=== PATIENT | female | born 1955 | race Caucasian/White ===

== ENCOUNTER 2017-03-06 17:57 | Emergency (ER) | payer MEDICARE, OTHER ==
[~2017-03-06] VITALS: Ht 162.6 cm; Wt 136.1 kg
[~2017-03-06 17:57] MED LIST: ALBUTEROL2.5 MG/3 M; COREG3.125 MG; GABAPENTIN100 MG; HYDROCHLOROTH12.5 M1; LISINOPRIL5 MG; NORCO 5-325 TA1 EACH PO; NOVOLIN N100 UNIT/1; NOVOLIN R100 UNIT/1; TESSALON PERLE100 MG; UNKNOWN ABX; VICODIN HP 10-1 EAC1
[2017-03-06] MEDS ORDERED: MORPHINE SULFAT15 M1 PO (18:14)
[2017-03-06] MEDS ORDERED: BACLOFEN10 MG PO (18:15)
[2017-03-06] MEDS ORDERED: HYDROCODON-ACE1 EAC8 PO (18:15)
--- OUTSIDE RECORDS SUMMARY | 2017-03-06 18:19 | XMS ---
Demographics + + + | Address | [address] | | | [place] [address] | + + + | Preferred Language | Unknown | + + + | Marital Status | Unknown | + + + | Quaker Affiliation | Unknown | + + + | Race | Unknown | + + + | Ethnic Group | Unknown | + + + Author + + + | Author | [facility] | + + + | Organization | [facility] | + + + | Address | [address] | | | [place] [address] | + + + | Phone | | + + + Care Team Providers + + + + | Care Emergency Communications Officer Name | Role | Phone | + + + + Unavailable | Unavailable | + + + + PROBLEMS +---------+ + + +--------+ + + | Type | Condition | ICD9-CM | [id number] | Onset | Condition | SNOMED | | | | Code | Code | Dates | Status | Code | +---------+ + + +--------+ + + | Problem | Chronic | | R05 | | Active | [id number] | | | cough | | | | | | +---------+ + + +--------+ + + | Problem | Hypothyroi | | E03.9 | | Active | 84990823 | | | dism | | | | | | +---------+ + + +--------+ + + | Problem | Hypertensi | | I10 | | Active | 58167803 | | | on | | | | | | +---------+ + + +--------+ + + | Problem | BPV | | H81.10 | | Active | 633731521 | | | (benign | | | | | | | | positional | | | | | | | | vertigo) | | | | | | +---------+ + + +--------+ + + | Problem | CAD | | I25.10 | | Active | 08792693 | | | (coronary | | | | | | | | artery | | | | | | | | disease) | | | | | | +---------+ + + +--------+ + + | Problem | Morbid | | E66.01 | | Active | 798741088 | | | obesity | | | | | | +---------+ + + +--------+ + + | Problem | Cirrhosis | K74.60 | | | Active | 83300541 | | | of liver | | | | | | +---------+ + + +--------+ + + | Problem | History of | Z86.19 | | | Active | 5398305846 | | | hepatitis | | | | | 9101 | | | C | | | | | | +---------+ + + +--------+ + + | Problem | Hypokalemi | | E87.6 | | Active | 70460309 | | | a | | | | | | +---------+ + + +--------+ + + | Problem | Iron | | E61.1 | | Active | 13793792 | | | deficiency | | | | | | +---------+ + + +--------+ + + | Problem | 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 | | | | | | | | w/unspec | | | | | | | | complicati | | | | | | | | on, not | | | | | | | | stated as | | | | | | | | uncontroll | | | | | | | | ed | | | | | | +---------+ + + +--------+ + + | Problem | COPD | | J44.9 | | Active | 73431833 | | | (chronic | | | | | | | | obstructiv | | | | | | | | e | | | | | | | | pulmonary | | | | | | | | disease) | | | | | | +---------+ + + +--------+ + + | Problem | Chronic | | G89.4 | | Active | 301869914 | | | pain | | | | | | | | syndrome | | | | | | +---------+ + + +--------+ + + | Problem | Leg edema | R60.0 | | | Active | 086866236 | +---------+ + + +--------+ + + | Problem | Chronic | N18.9 | | | Active | 45758830 | | | renal | | | | | | | | failure | | | | | | +---------+ + + +--------+ + + | Problem | Syncope | R55 | | | Active | 668913071 | +---------+ + + +--------+ + + | Problem | Functional | | K30 | | Active | 0450807 | | | dyspepsia | | | | | | +---------+ + + +--------+ + + | Problem | Hepatitis | | B19.20 | | Active | 98009060 | | | C | | | | | | +---------+ + + +--------+ + + | Problem | Insomnia | | G47.00 | | Active | 722257973 | +---------+ + + +--------+ + + | Problem | NEUROPATHY | 357.2 | | | Active | 767660269 | | | IN | | | | | | | | DIABETES | | | | | | +---------+ + + +--------+ + + | Problem | Edema | 782.3 | | | Active | 32848010 | +---------+ + + +--------+ + + | Problem | Diabetes | E11.49 | | | Active | 472149498 | | | 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 2 | | | | | | | | with | | | | | | | | neurologic | | | | | | | | al | | | | | | | | manifestat | | | | | | | | ions | | | | | | +---------+ + + +--------+ + + | Problem | Chronic | | J44.1 | | Active | 484353907 | | | obstructiv | | | | | | | | e | | | | | | | | pulmonary | | | | | | | | disease | | | | | | | | with | | | | | | | | (acute) | | | | | | | | exacerbati | | | | | | | | on | | | | | | +---------+ + + +--------+ + + | Problem | Lumbosacra | M47.27 | | | Active | 72240966 | | | l | | | | | | | | radiculopa | | | | | | | | thy due to | | | | | | | | | | | | | | | | degenerati | | | | | | | | ve joint | | | | | | | | disease of | | | | | | | | spine | | | | | | +---------+ + + +--------+ + + | Problem | GERD | | K21.9 | | Active | 016071189 | | | (gastroeso | | | | | | | | phageal | | | | | | | | reflux | | | | | | | | disease) | | | | | | +---------+ + + +--------+ + + ALLERGIES Unknown Allergies SOCIAL HISTORY No smoking Hx information available PLAN OF CARE VITAL SIGNS MEDICATIONS + + + + +--------+ + +--------+ | Medicati | Instruct | Dosage | Frequenc | Start | End Date | Duration | Status | | on | ions | | y | Date | | | | + + + + +--------+ + +--------+ | Metolazo | Orally | 1 tablet | 24h | | | 30 | Active | | ne 2.5 | Once a | | | | | day(s) | | | MG | day | | | | | | | + + + + +--------+ + +--------+ RESULTS No Results PROCEDURES No Known procedures IMMUNIZATIONS No Known Immunizations"
--- OUTSIDE RECORDS SUMMARY | 2017-03-06 18:19 | XMS ---
Demographics + + + | Address | [address] | | | [place] [address] | + + + | Preferred Language | Unknown | + + + | Marital Status | Unknown | + + + | Pentecostal Affiliation | Unknown | + + + | Race | Unknown | + + + | Ethnic Group | Unknown | + + + Author + + + | Author | [facility] | + + + | Organization | [facility] | + + + | Address | [address] | | | [place] [address] | + + + | Phone | | + + + Care Team Providers + + + + | Care Automobile Detailer Name | Role | Phone | + + + + Unavailable | Unavailable | + + + + PROBLEMS +---------+ + + +--------+ + + | Type | Condition | ICD9-CM | [id number] | Onset | Condition | SNOMED | | | | Code | Code | Dates | Status | Code | +---------+ + + +--------+ + + | Problem | Chronic | | R05 | | Active | 68803287 | | | cough | | | | | | +---------+ + + +--------+ + + | Problem | Hypothyroi | | E03.9 | | Active | 24254851 | | | dism | | | | | | +---------+ + + +--------+ + + | Problem | Hypertensi | | I10 | | Active | 39562738 | | | on | | | | | | +---------+ + + +--------+ + + | Problem | BPV | | H81.10 | | Active | 580431021 | | | (benign | | | | | | | | positional | | | | | | | | vertigo) | | | | | | +---------+ + + +--------+ + + | Problem | CAD | | I25.10 | | Active | 21487511 | | | (coronary | | | | | | | | artery | | | | | | | | disease) | | | | | | +---------+ + + +--------+ + + | Problem | Morbid | | E66.01 | | Active | 783475636 | | | obesity | | | | | | +---------+ + + +--------+ + + | Problem | Cirrhosis | K74.60 | | | Active | 84801642 | | | of liver | | | | | | +---------+ + + +--------+ + + | Problem | History of | Z86.19 | | | Active | 2429846934 | | | hepatitis | | | | | 9101 | | | C | | | | | | +---------+ + + +--------+ + + | Problem | Hypokalemi | | E87.6 | | Active | 32704051 | | | a | | | | | | +---------+ + + +--------+ + + | Problem | Iron | | E61.1 | | Active | 47073941 | | | deficiency | | | | | | +---------+ + + +--------+ + + | Problem | Diabetes | 250.90 | | | Active | 753402724 | | | mellitus | | | [...] | | J44.9 | | Active | 73880670 | | | (chronic | | | | | | | | obstructiv | | | | | | | | e | | | | | | | | pulmonary | | | | | | | | disease) | | | | | | +---------+ + + +--------+ + + | Problem | Chronic | | G89.4 | | Active | 967125245 | | | pain | | | | | | | | syndrome | | | | | | +---------+ + + +--------+ + + | Problem | Leg edema | R60.0 | | | Active | 832817159 | +---------+ + + +--------+ + + | Problem | Chronic | N18.9 | | | Active | 68428890 | | | renal | | | | | | | | failure | | | | | | +---------+ + + +--------+ + + | Problem | Syncope | R55 | | | Active | 730745590 | +---------+ + + +--------+ + + | Problem | Functional | | K30 | | Active | 6620176 | | | dyspepsia | | | | | | +---------+ + + +--------+ + + | Problem | Hepatitis | | B19.20 | | Active | 17922785 | | | C | | | | | | +---------+ + + +--------+ + + | Problem | Insomnia | | G47.00 | | Active | 881537409 | +---------+ + + +--------+ + + | Problem | NEUROPATHY | 357.2 | | | Active | 380517871 | | | IN | | | | | | | | DIABETES | | | | | | +---------+ + + +--------+ + + | Problem | Edema | 782.3 | | | Active | 62569404 | +---------+ + + +--------+ + + | Problem | Diabetes | E11.49 | | | Active | 830397322 | | | mellitus | | | [...] | | J44.1 | | Active | 070924847 | | | obstructiv | | | [...] | M47.27 | | | Active | 78256181 | | | l | | | [...] | | K21.9 | | Active | 724061929 | | | (gastroeso | | | | | | | | phageal | | | | | | | | reflux | | | | | | | | disease) | | | | | | +---------+ + + +--------+ + + ALLERGIES + + + + +--------+ | Substance | Reaction | Event Type | Date | Status | + + + + +--------+ | Tramadol HCl | muscle cramps | Drug Allergy | Nov, | Active | + + + + +--------+ | Quinine Sulfate | Unknown | Drug Allergy | Nov, | Active | + + + + +--------+ SOCIAL HISTORY No smoking Hx information available PLAN OF CARE + +---------+ | Activity | Details | + +---------+ +---+ | | +---+ + + + | Follow Up | 2 - 3 Days Reason:null | + + + VITAL SIGNS + + + + | Height | 64 in | 2016-11-21 | + + + + | Weight | 319.4 lbs | 2016-11-21 | + + + + | BMI | 54.82 kg/m2 | 2016-11-21 | + + + + | Temperature | 99.2 degrees Fahrenheit | 2016-11-21 | + + + + | Heart Rate | 72 /min | 2016-11-21 | + + + + | Blood pressure systolic | 169 mm Hg | 2016-11-21 | + + + + | Blood pressure diastolic | 78 mm Hg | 2016-11-21 | + + + + MEDICATIONS + + + + + + + +--------+ | Medicati | Instruct | Dosage | Frequenc | Start | End Date | Duration | Status | | on | ions | | y | Date | | | | + + + + + + + +--------+ | Tizanidi | Orally | 1 tablet | 8h | | | | Active | | ne HCl 4 | Three | as | | | | | | | mg | Times A | needed | | | | | | | | day | | | | | | | + + + + + + + +--------+ | Furosemi | Orally | 1 tablet | 12h | | | 30 days | Active | | de 40 mg | Twice a | | | | | | | | | day | | | | | | | + + + + + + + +--------+ | Albutero | Inhalati | as | | 20 Sep, | | | Active | | l | on q6hrs | directed | | 2015 | | | | | Sulfate | | | | | | | | | (2.5 | | | | | | | | | MG/3ML) | | | | | | | | | 0.083% | | | | | | | | + + + + + + + +--------+ | nebulize | | as | | | | | Active | | r | | directed | | | | | | + + + + + + + +--------+ | Gabapent | Orally | 1 tablet | 6h | | | | Active | | in 800 | Four | | | | | | | | MG | times a | | | | | | | | | day | | | | | | | + + + + + + + +--------+ | Ventolin | Inhalati | 2 puffs | 4h | | | 30 days | Active | | HFA 108 | on every | as | | | | | | | (90 | 4 hrs | needed | | | | | | | Base) | | | | | | | | | MCG/ACT | | | | | | | | + + + + + + + +--------+ | Potassiu | Orally | 1 | 12h | 03 Bharath, | 30 Nov, | 30 | Active | | m | Twice a | capsule | | 2017 | 2017 | day(s) | | | Chloride | day | with | | | | | | | ER 10 | | food | | | | | | | MEQ | | | | | | | | + + + + + + + +--------+ | ReliOn N | subcutan | 47 units | 12h | | | | Active | | . | eously | | | | | | | | | bid | | | | | | | + + + + + + + +--------+ | Nystatin | External | 1 | 12h | | | 7 -10 | Active | | [id number] | ly Twice | applicat | | | | days | | | UNIT/GM | a day | ion to | | | | | | | | | affected | | | | | | | | | area | | | | | | + + + + + + + +--------+ | Hydrocod | Orally | 1 tablet | | | | 12 days | Active | | one-Acet | daily | | | | | | | | aminophe | PRN | | | | | | | | n 10-325 | severe | | | | | | | | MG | pain | | | | | | | + + + + + + + +--------+ | Omeprazo | Orally | 1 | 12h | | | 30 | Active | | le 20 mg | bid | capsule | | | | day(s) | | + + + + + + + +--------+ | Carvedil | Orally | 1 tablet | 12h | | | | Active | | ol 6.25 | Twice a | with | | | | | | | MG | day | food | | | | | | + + + + + + + +--------+ | ReliOn R | subcutan | 30 units | 8h | | | 30 days | Active | | | eously | TID | | | | | | | | TID | plus SS | | | | | | | | | <150 | | | | | | | | | minus 2 | | | | | | | | | units, | | | | | | | | | 150-199 | | | | | | | | | 2 | | | | | | | | | units, | | | | | | | | | 200-249 | | | | | | | | | 4U, | | | | | | | | | 250-299 | | | | | | | | | 6U, | | | | | | | | | 300-349 | | | | | | | | | 8U, >350 | | | | | | | | | 10U | | | | | | + + + + + + + +--------+ | Insulin | Subcutan | as | | 23 Sep, | | | Active | | Syringe | eous BID | directed | | 2015 | | | | | 31G X | Relion | | | | | | | | 5/16 | N, QID | | | | | | | | | Relion R | | | | | | | + + + + + + + +--------+ | Advair | Inhalati | 1 puff | 12h | 20 Sep, | | 30 | Active | | Diskus | on BID | | | 2015 | | day(s) | | | 250-50 | | | | | | | | | MCG/DOSE | | | | | | | | + + + + + + + +--------+ | Vitamin | Orally | 1 tab(s) | | | | | Active | | B 12 | one time | | | | | | | | 1000 | daily | | | | | | | | | in am | | | | | | | + + + + + + + +--------+ | Tessalon | Orally | 1 | | | 22 Manjeet, | 30 days | Active | | Perles | Three | capsule | | | 2017 | | | | 200 mg | times a | | | | | | | | | day PRN | | | | | | | | | Cough | | | | | | | + + + + + + + +--------+ | Levothyr | Orally | 1 tablet | 24h | | | 30 | Active | | oxine | Once a | | | | | | | | Sodium | day | | | | | | | | 50 MCG | | | | | | | | + + + + + + + +--------+ | Metolazo | Orally | 1 tablet | 24h | | | 14 days | Active | | ne 2.5 | Once a | | | | | | | | MG | day | | | | | | | + + + + + + + +--------+ RESULTS No Results PROCEDURES + + + + + | Procedure | Date Ordered | Related Diagnosis | Body Site | + + + + + | Office Visit, Est | November 21, 2016 | | | | Pt., Level 4 | | | | + + + + + | [facility] MED/CURRENT | November 21, 2016 | | | | MED MERGE | | | | + + + + + | DOC MEDS VERIFIED | November 21, 2016 | | | | W/PT OR RE | | | | + + + + + IMMUNIZATIONS No Known Immunizations"
--- OUTSIDE RECORDS SUMMARY | 2017-03-06 18:19 | XMS ---
Demographics + + + | Address | [address] | | | [place] [address] | + + + | Preferred Language | Unknown | + + + | Marital Status | Unknown | + + + | Jewish Affiliation | Unknown | + + + | Race | Unknown | + + + | Ethnic Group | Unknown | + + + Author + + + | Author | [facility] | + + + | Organization | [facility] | + + + | Address | [address] | | | [place] [address] | + + + | Phone | | + + + Care Team Providers + + + + | Care Supervisor Metal Furniture Assembly Name | Role | Phone | + + + + Unavailable | Unavailable | + + + + PROBLEMS +---------+ + + +--------+ + + | Type | Condition | ICD9-CM | [id number] | Onset | Condition | SNOMED | | | | Code | Code | Dates | Status | Code | +---------+ + + +--------+ + + | Problem | Chronic | | R05 | | Active | 54581539 | | | cough | | | | | | +---------+ + + +--------+ + + | Problem | Hypertensi | | I10 | | Active | 83716095 | | | on | | | | | | +---------+ + + +--------+ + + | Problem | CAD | | I25.10 | | Active | 94364043 | | | (coronary | | | | | | | | artery | | | | | | | | disease) | | | | | | +---------+ + + +--------+ + + | Problem | Chronic | | G89.4 | | Active | 255997060 | | | pain | | | | | | | | syndrome | | | | | | +---------+ + + +--------+ + + | Problem | Cirrhosis | K74.60 | | | Active | 30195762 | | | of liver | | | | | | +---------+ + + +--------+ + + | Problem | COPD | | J44.9 | | Active | 40570203 | | | (chronic | | | | | | | | obstructiv | | | | | | | | e | | | | | | | | pulmonary | | | | | | | | disease) | | | | | | +---------+ + + +--------+ + + | Problem | Chronic | N18.9 | | | Active | 38054187 | | | renal | | | | | | | | failure | | | | | | +---------+ + + +--------+ + + | Problem | Diabetes | 250.90 | | | Active | 609671295 | | | mellitus | | | [...] | R60.0 | | | Active | 961071062 | +---------+ + + +--------+ + + | Problem | Syncope | R55 | | | Active | 422726823 | +---------+ + + +--------+ + + | Problem | Functional | | K30 | | Active | 9724109 | | | dyspepsia | | | | | | +---------+ + + +--------+ + + | Problem | Trigger | | M65.331 | | Active | 4209296 | | | finger, | | | | | | | | right | | | | | | | | middle | | | | | | | | finger | | | | | | +---------+ + + +--------+ + + | Problem | Morbidly | E66.01 | | | Active | 833908582 | | | obese | | | | | | +---------+ + + +--------+ + + | Problem | Hepatitis | | B19.20 | | Active | 72062485 | | | C | | | | | | +---------+ + + +--------+ + + | Problem | Edema | 782.3 | | | Active | 21875937 | +---------+ + + +--------+ + + | Problem | NEUROPATHY | 357.2 | | | Active | 127344710 | | | IN | | | | | | | | DIABETES | | | | | | +---------+ + + +--------+ + + | Problem | Hypokalemi | | E87.6 | | Active | 90965749 | | | a | | | | | | +---------+ + + +--------+ + + | Problem | Iron | | E61.1 | | Active | 37824635 | | | deficiency | | | | | | +---------+ + + +--------+ + + | Problem | Hypoxia | | R09.02 | | Active | 149226293 | +---------+ + + +--------+ + + | Problem | CHEL | G47.33 | | | Active | 73805746 | | | (obstructi | | | | | | | | ve sleep | | | | | | | | apnea) | | | | | | +---------+ + + +--------+ + + | Problem | GERD | | K21.9 | | Active | 210032174 | | | (gastroeso | | | | | | | | phageal | | | | | | | | reflux | | | | | | | | disease) | | | | | | +---------+ + + +--------+ + + | Problem | Diabetes | E11.49 | | | Active | 699861306 | | | mellitus | | | [...] | | G47.00 | | Active | 465557555 | +---------+ + + +--------+ + + | Problem | Lumbosacra | M47.27 | | | Active | 01951767 | | | l | | | [...] | | H81.10 | | Active | 615407997 | | | (benign | | | | | | | | positional | | | | | | | | vertigo) | | | | | | +---------+ + + +--------+ + + | Problem | History of | Z86.19 | | | Active | 2025316135 | | | hepatitis | | | | | 9101 | | | C | | | | | | +---------+ + + +--------+ + + | Problem | Chronic | | J44.1 | | Active | 505512391 | | | obstructiv | | | [...] | | E03.9 | | Active | 77457803 | | | dism | | | | | | +---------+ + + +--------+ + + ALLERGIES + + + + +--------+ | Substance | Reaction | Event Type | Date | Status | + + + + +--------+ | Tramadol HCl | muscle cramps | Drug Allergy | Jan, | Active | + + + + +--------+ | Quinine Sulfate | Unknown | Drug Allergy | Jan, | Active | + + + + +--------+ SOCIAL HISTORY No smoking Hx information available PLAN OF CARE + +---------+ | Activity | Details | + +---------+ +---+ | | +---+ + + + | Follow Up | 6 Weeks Reason:null | + + + VITAL SIGNS + + + + | Height | 64 in | 2017-02-03 | + + + + | Weight | 310 lbs | 2017-02-03 | + + + + | BMI | 53.21 kg/m2 | 2017-02-03 | + + + + | Temperature | 98.5 degrees Fahrenheit | 2017-02-03 | + + + + | Heart Rate | 61 /min | 2017-02-03 | + + + + | Blood pressure systolic | 135 mm Hg | 2017-02-03 | + + + + | Blood pressure diastolic | 78 mm Hg | 2017-02-03 | + + + + MEDICATIONS + + + + + + + +--------+ | Medicati | Instruct | Dosage | Frequenc | Start | End Date | Duration | Status | | on | ions | | y | Date | | | | + + + + + + + +--------+ | Furosemi | orally | 2 tabs | 12h | | | | Active | | de 40 | bid | in AM, 1 | | | | | | | | | tab in | | | | | | | | | PM | | | | | | + + + + + + + +--------+ | Nystatin | External | 1 | 12h | | | 7 -10 | Active | | 584597 | ly Twice | applicat | | | | days | | | UNIT/GM | a day | ion to | | | | | | | | | affected | | | | | | | | | area | | | | | | + + + + + + + +--------+ | Magnesiu | Orally | 1 tablet | 24h | | 20 Dec, | 30 days | Active | | m 250 MG | Once a | with a | | | 2017 | | | | | day | meal | | | | | | + + + + + + + +--------+ | Iron 325 | Orally | 1 tablet | 24h | | | 30 days | Active | | (65 Fe) | Once a | | | | [...] | | | | | | | 516 | N, QID | | | | | | | | | Relion R | | | | | | | + + + + + + + +--------+ | Carvedil | | TAKE 1 | | | | 30 | Active | | ol 6.25 | | TABLET | | | | | | | | | BY MOUTH | | | | | | | | | TWICE | | | | | | | | | DAILY | | | | | | + [...] Diskus | on BID | | | 2016 | | day(s) | | | 250-50 [...] + + + + + +--------+ | Cephalex | Orally | 1 | 8h | Jan, | Jan, | 10 | Active | | in 500 | tid | capsule | | 2016 | 2016 | day(s) | | | mg | | | | | | | [...] + + + + + +--------+ | BIPAP | . BIPAP | as | | Jan, | | [place] | Active | | IPAP/EPA | equipmen | directed | | 2016 | | l | | | P 22/18 | t, | | | | | oximetry | | | cm H2O | hoses, | | | | | should | | | | masks, | | | | | be | | | | ect. | | | | | employed | | | | Followed | | | | | PRN. | | | | by | | | | | | | | | periodic | | | | | | | | | PAP | | | | | | | | | device | | | | | | | | | download | | | | | | | | | s/analys | | | | | | | | | is with | | | | | | | | | changes | | | | | | | | | in | | | | | | | | | pressure | | | | | | | | | as | | | | | | | | | necessar | | | | | | | | | y. | | | | | | | [...] + + + +--------+ | Omeprazo | | TAKE 1 | | | | 30 | Active | | le 20 | | CAPSULE | | | | | | | | | BY MOUTH | | | | | | | | | TWICE | | | | | | | | | DAILY | | | | | | + + + + + + + +--------+ | ReliOn N | subcutan | 50 units | 12h | | | | [...] + + | Office Visit, Est | Feb 03, 2017 | | | | Pt., Level 3 | | | | + + + + + | [facility] MED/CURRENT | Feb 03, 2017 | | | | MED MERGE | | | | + + + + + | DOC MEDS VERIFIED | Feb 03, 2017 | | | | W/PT OR RE | | | | + + + + + IMMUNIZATIONS No Known Immunizations"
--- OUTSIDE RECORDS SUMMARY | 2017-03-06 18:20 | XMS ---
Demographics + + + | Address | [address] | | | [place] [address] | + + + | Preferred Language | Unknown | + + + | Marital Status | Unknown | + + + | Adventist Affiliation | Unknown | + + + | Race | Unknown | + + + | Ethnic Group | Unknown | + + + Author + + + | Author | [facility] | + + + | Organization | [facility] | + + + | Address | [address] | | | [place] [address] | + + + | Phone | | + + + Care Team Providers + + + + | Care Negative Turner Apprentice Name | Role | Phone | + + + + Unavailable | Unavailable | + + + + PROBLEMS + + + + + + + + | Type | Condition | ICD9-CM | [id number] | Onset | Condition | SNOMED | | | | Code | Code | Dates | Status | Code | + + + + + + + + | Problem | Hypothyroi | | E03.9 | | Active | 21288917 | | | dism | | | | | | + + + + + + + + | Problem | Morbid | | E66.01 | | Active | 472482746 | | | obesity | | | | | | + + + + + + + + | Problem | BPV | | H81.10 | | Active | 523746920 | | | (benign | | | | | | | | positional | | | | | | | | vertigo) | | | | | | + + + + + + + + | Problem | Syncope | R55 | | | Active | 652735151 | + + + + + + + + | Problem | Chronic | | G89.4 | | Active | 861290307 | | | pain | | | | | | | | syndrome | | | | | | + + + + + + + + | Problem | Functional | | K30 | | Active | 4756315 | | | dyspepsia | | | | | | + + + + + + + + | Problem | CAD | | I25.10 | | Active | 26339459 | | | (coronary | | | | | | | | artery | | | | | | | | disease) | | | | | | + + + + + + + + | Problem | Hypertensi | | I10 | | Active | 80286765 | | | on | | | | | | + + + + + + + + | Problem | Cirrhosis | K74.60 | | | Active | 98508040 | | | of liver | | | | | | + + + + + + + + | Problem | History of | Z86.19 | | | Active | 2551661782 | | | hepatitis | | | | | 9101 | | | C | | | | | | + + + + + + + + | Problem | Leg edema | R60.0 | | | Active | 663831073 | + + + + + + + + | Problem | Chronic | N18.9 | | | Active | 19324137 | | | renal | | | | | | | | failure | | | | | | + + + + + + + + | Problem | NEUROPATHY | 357.2 | | | Active | 803494343 | | | IN | | | | | | | | DIABETES | | | | | | + + + + + + + + | Problem | Edema | 782.3 | | | Active | 65473174 | + + + + + + + + | Problem | COPD | | J44.9 | | Active | 11814950 | | | (chronic | | | | | | | | obstructiv | | | | | | | | e | | | | | | | | pulmonary | | | | | | | | disease) | | | | | | + + + + + + + + | Problem | Diabetes | 250.90 | | | Active | 122283789 | | | mellitus | | | [...] ed | | | | | | + + + + + + + + | Problem | Lumbosacra | M47.27 | | | Active | 80460315 | | | l | | | [...] spine | | | | | | + + + + + + + + | Problem | GERD | | K21.9 | | Active | 821876394 | | | (gastroeso | | | | | | | | phageal | | | | | | | | reflux | | | | | | | | disease) | | | | | | + + + + + + + + | Assessment | Chronic | N18.9 | | 11 November, | Active | 43537338 | | | renal | | | 2016 | | | | | failure | | | | | | + + + + + + + + | Problem | Hepatitis | | B19.20 | | Active | 16957699 | | | C | | | | | | + + + + + + + + | Problem | Diabetes | E11.49 | | | Active | 089010896 | | | mellitus | | | [...] ions | | | | | | + + + + + + + + | Problem | Chronic | | R05 | | Active | 63943664 | | | cough | | | | | | + + + + + + + + | Problem | Insomnia | | G47.00 | | Active | 662885844 | + + + + + + + + | Problem | Chronic | | J44.1 | | Active | 841593082 | | | obstructiv | | | [...] on | | | | | | + + + + + + + + ALLERGIES Unknown Allergies SOCIAL HISTORY No smoking Hx information available PLAN OF CARE + +---------+ | Activity | Details | + +---------+ +---+ | | +---+ + + + | Pending Test | CBC, Platelet; No Differential | + + + | Pending Test | Basic Metabolic Panel | + + + | | ,Reason: | + + + VITAL SIGNS MEDICATIONS Unknown Medications RESULTS No Results PROCEDURES No Known procedures IMMUNIZATIONS No Known Immunizations"
--- OUTSIDE RECORDS SUMMARY | 2017-03-06 18:20 | XMS ---
Demographics + + + | Address | [address] | | | [place] [address] | + + + | Preferred Language | Unknown | + + + | Marital Status | Unknown | + + + | Mandaen Affiliation | Unknown | + + + | Race | Unknown | + + + | Ethnic Group | Unknown | + + + Author + + + | Author | [facility] | + + + | Organization | [facility] | + + + | Address | [address] | | | [place] [address] | + + + | Phone | | + + + Care Team Providers + + + + | Care Hydro Sprayer Operator Name | Role | Phone | + + + + Unavailable | Unavailable | + + + + PROBLEMS +---------+ + + +--------+ + + | Type | Condition | ICD9-CM | [id number] | Onset | Condition | SNOMED | | | | Code | Code | Dates | Status | Code | +---------+ + + +--------+ + + | Problem | Chronic | | R05 | | Active | 09781792 | | | cough | | | | | | +---------+ + + +--------+ + + | Problem | Hypertensi | | I10 | | Active | 96182966 | | | on | | | | | | +---------+ + + +--------+ + + | Problem | CAD | | I25.10 | | Active | 52544415 | | | (coronary | | | | | | | | artery | | | | | | | | disease) | | | | | | +---------+ + + +--------+ + + | Problem | Morbid | | E66.01 | | Active | 028020633 | | | obesity | | | | | | +---------+ + + +--------+ + + | Problem | Chronic | | G89.4 | | Active | 556097250 | | | pain | | | | | | | | syndrome | | | | | | +---------+ + + +--------+ + + | Problem | History of | Z86.19 | | | Active | 3078624611 | | | hepatitis | | | | | 9101 | | | C | | | | | | +---------+ + + +--------+ + + | Problem | COPD | | J44.9 | | Active | 68921296 | | | (chronic | | | | | | | | obstructiv | | | | | | | | e | | | | | | | | pulmonary | | | | | | | | disease) | | | | | | +---------+ + + +--------+ + + | Problem | Cirrhosis | K74.60 | | | Active | 24757097 | | | of liver | | | | | | +---------+ + + +--------+ + + | Problem | Leg edema | R60.0 | | | Active | 801528268 | +---------+ + + +--------+ + + | Problem | Chronic | N18.9 | | | Active | 78027271 | | | renal | | | | | | | | failure | | | | | | +---------+ + + +--------+ + + | Problem | Hypoxia | | R09.02 | | Active | 056021719 | +---------+ + + +--------+ + + | Problem | CHEL | G47.33 | | | Active | 75305242 | | | (obstructi | | | | | | | | ve sleep | | | | | | | | apnea) | | | | | | +---------+ + + +--------+ + + | Problem | Edema | 782.3 | | | Active | 11140600 | +---------+ + + +--------+ + + | Problem | NEUROPATHY | 357.2 | | | Active | 958805027 | | | IN | | | | | | | | DIABETES | | | | | | +---------+ + + +--------+ + + | Problem | Diabetes | 250.90 | | | Active | 887453180 | | | mellitus | | | [...] | R55 | | | Active | 844747495 | +---------+ + + +--------+ + + | Problem | Functional | | K30 | | Active | 6280755 | | | dyspepsia | | | | | | +---------+ + + +--------+ + + | Problem | Hypokalemi | | E87.6 | | Active | 94615068 | | | a | | | | | | +---------+ + + +--------+ + + | Problem | Iron | | E61.1 | | Active | 47639486 | | | deficiency | | | | | | +---------+ + + +--------+ + + | Problem | Lumbosacra | M47.27 | | | Active | 27174933 | | | l | | | [...] | | K21.9 | | Active | 690237075 | | | (gastroeso | | | | | | | | phageal | | | | | | | | reflux | | | | | | | | disease) | | | | | | +---------+ + + +--------+ + + | Problem | Hepatitis | | B19.20 | | Active | 27690372 | | | C | | | | | | +---------+ + + +--------+ + + | Problem | Insomnia | | G47.00 | | Active | 767496277 | +---------+ + + +--------+ + + | Problem | Hypothyroi | | E03.9 | | Active | 86113863 | | | dism | | | | | | +---------+ + + +--------+ + + | Problem | BPV | | H81.10 | | Active | 455702470 | | | (benign | | | | | | | | positional | | | | | | | | vertigo) | | | | | | +---------+ + + +--------+ + + | Problem | Diabetes | E11.49 | | | Active | 919246281 | | | mellitus | | | [...] | | J44.1 | | Active | 131205899 | | | obstructiv | | | [...] available PLAN OF CARE VITAL SIGNS MEDICATIONS Unknown Medications RESULTS No Results PROCEDURES No Known procedures IMMUNIZATIONS No Known Immunizations"
--- OUTSIDE RECORDS SUMMARY | 2017-03-06 18:20 | XMS ---
Demographics + + + | Address | [address] | | | [place] [address] | + + + | Preferred Language | Unknown | + + + | Marital Status | Unknown | + + + | Jew Affiliation | Unknown | + + + | Race | Unknown | + + + | Ethnic Group | Unknown | + + + Author + + + | Author | [facility] | + + + | Organization | [facility] | + + + | Address | [address] | | | [place] [address] | + + + | Phone | | + + + Care Team Providers + + + + | Care Jammer Hooker Name | Role | Phone | + + + + Unavailable | Unavailable | + + + + PROBLEMS +---------+ + + +--------+ + + | Type | Condition | ICD9-CM | WTG55-TQ | Onset | Condition | SNOMED | | | | Code | Code | Dates | Status | Code | +---------+ + + +--------+ + + | Problem | Chronic | | R05 | | Active | 97576205 | | | cough | | | | | | +---------+ + + +--------+ + + | Problem | Hypertensi | | I10 | | Active | 56044347 | | | on | | | | | | +---------+ + + +--------+ + + | Problem | CAD | | I25.10 | | Active | 61385933 | | | (coronary | | | | | | | | artery | | | | | | | | disease) | | | | | | +---------+ + + +--------+ + + | Problem | Chronic | | G89.4 | | Active | 064155429 | | | pain | | | | | | | | syndrome | | | | | | +---------+ + + +--------+ + + | Problem | Cirrhosis | K74.60 | | | Active | 73249506 | | | of liver | | | | | | +---------+ + + +--------+ + + | Problem | COPD | | J44.9 | | Active | 27737163 | | | (chronic | | | | | | | | obstructiv | | | | | | | | e | | | | | | | | pulmonary | | | | | | | | disease) | | | | | | +---------+ + + +--------+ + + | Problem | Chronic | N18.9 | | | Active | 68022507 | | | renal | | | | | | | | failure | | | | | | +---------+ + + +--------+ + + | Problem | Diabetes | 250.90 | | | Active | 172056164 | | | mellitus | | | [...] | R60.0 | | | Active | 080865526 | +---------+ + + +--------+ + + | Problem | Syncope | R55 | | | Active | 200624739 | +---------+ + + +--------+ + + | Problem | Functional | | K30 | | Active | 0198265 | | | dyspepsia | | | | | | +---------+ + + +--------+ + + | Problem | Trigger | | M65.331 | | Active | 3423893 | | | finger, | | | | | | | | right | | | | | | | | middle | | | | | | | | finger | | | | | | +---------+ + + +--------+ + + | Problem | Morbidly | E66.01 | | | Active | 861505736 | | | obese | | | | | | +---------+ + + +--------+ + + | Problem | Hepatitis | | B19.20 | | Active | 04927520 | | | C | | | | | | +---------+ + + +--------+ + + | Problem | Edema | 782.3 | | | Active | 40230440 | +---------+ + + +--------+ + + | Problem | NEUROPATHY | 357.2 | | | Active | 460216259 | | | IN | | | | | | | | DIABETES | | | | | | +---------+ + + +--------+ + + | Problem | Hypokalemi | | E87.6 | | Active | 73512604 | | | a | | | | | | +---------+ + + +--------+ + + | Problem | Iron | | E61.1 | | Active | 28813784 | | | deficiency | | | | | | +---------+ + + +--------+ + + | Problem | Hypoxia | | R09.02 | | Active | 715381898 | +---------+ + + +--------+ + + | Problem | CHEL | G47.33 | | | Active | 43495637 | | | (obstructi | | | | | | | | ve sleep | | | | | | | | apnea) | | | | | | +---------+ + + +--------+ + + | Problem | GERD | | K21.9 | | Active | 070175123 | | | (gastroeso | | | | | | | | phageal | | | | | | | | reflux | | | | | | | | disease) | | | | | | +---------+ + + +--------+ + + | Problem | Diabetes | E11.49 | | | Active | 225804558 | | | mellitus | | | [...] | | G47.00 | | Active | 609420182 | +---------+ + + +--------+ + + | Problem | Lumbosacra | M47.27 | | | Active | 35165739 | | | l | | | [...] | | H81.10 | | Active | 495164483 | | | (benign | | | | | | | | positional | | | | | | | | vertigo) | | | | | | +---------+ + + +--------+ + + | Problem | History of | Z86.19 | | | Active | 3677018293 | | | hepatitis | | | | | 9101 | | | C | | | | | | +---------+ + + +--------+ + + | Problem | Chronic | | J44.1 | | Active | 061735732 | | | obstructiv | | | [...] | | E03.9 | | Active | 25376497 | | | dism | | | [...] | 7 -10 | Active | | 150259 | ly Twice | applicat | | [...]
--- OUTSIDE RECORDS SUMMARY | 2017-03-06 18:20 | XMS ---
Demographics + + + | Address | [address] | | | [place] [address] | + + + | Preferred Language | Unknown | + + + | Marital Status | Unknown | + + + | Yarsani Affiliation | Unknown | + + + | Race | Unknown | + + + | Ethnic Group | Unknown | + + + Author + + + | Author | [facility] | + + + | Organization | [facility] | + + + | Address | [address] | | | [place] [address] | + + + | Phone | | + + + Care Team Providers + + + + | Care Public Address Technician Name | Role | Phone | + + + + Unavailable | Unavailable | + + + + PROBLEMS +---------+ + + +--------+ + + | Type | Condition | ICD9-CM | [id number] | Onset | Condition | SNOMED | | | | Code | Code | Dates | Status | Code | +---------+ + + +--------+ + + | Problem | Chronic | | R05 | | Active | 72606528 | | | cough | | | | | | +---------+ + + +--------+ + + | Problem | Hypertensi | | I10 | | Active | 99983088 | | | on | | | | | | +---------+ + + +--------+ + + | Problem | CAD | | I25.10 | | Active | 42800073 | | | (coronary | | | | | | | | artery | | | | | | | | disease) | | | | | | +---------+ + + +--------+ + + | Problem | Chronic | | G89.4 | | Active | 827922044 | | | pain | | | | | | | | syndrome | | | | | | +---------+ + + +--------+ + + | Problem | Cirrhosis | K74.60 | | | Active | 76764128 | | | of liver | | | | | | +---------+ + + +--------+ + + | Problem | COPD | | J44.9 | | Active | 70768301 | | | (chronic | | | | | | | | obstructiv | | | | | | | | e | | | | | | | | pulmonary | | | | | | | | disease) | | | | | | +---------+ + + +--------+ + + | Problem | Chronic | N18.9 | | | Active | 28907664 | | | renal | | | | | | | | failure | | | | | | +---------+ + + +--------+ + + | Problem | Diabetes | 250.90 | | | Active | 919703600 | | | mellitus | | | [...] | R60.0 | | | Active | 489803788 | +---------+ + + +--------+ + + | Problem | Syncope | R55 | | | Active | 051552251 | +---------+ + + +--------+ + + | Problem | Functional | | K30 | | Active | 1244496 | | | dyspepsia | | | | | | +---------+ + + +--------+ + + | Problem | Trigger | | M65.331 | | Active | 9954048 | | | finger, | | | | | | | | right | | | | | | | | middle | | | | | | | | finger | | | | | | +---------+ + + +--------+ + + | Problem | Morbidly | E66.01 | | | Active | 747344076 | | | obese | | | | | | +---------+ + + +--------+ + + | Problem | Hepatitis | | B19.20 | | Active | 90559316 | | | C | | | | | | +---------+ + + +--------+ + + | Problem | Edema | 782.3 | | | Active | 67754091 | +---------+ + + +--------+ + + | Problem | NEUROPATHY | 357.2 | | | Active | 941747482 | | | IN | | | | | | | | DIABETES | | | | | | +---------+ + + +--------+ + + | Problem | Hypokalemi | | E87.6 | | Active | 12482545 | | | a | | | | | | +---------+ + + +--------+ + + | Problem | Iron | | E61.1 | | Active | 11352024 | | | deficiency | | | | | | +---------+ + + +--------+ + + | Problem | Hypoxia | | R09.02 | | Active | 278188960 | +---------+ + + +--------+ + + | Problem | CHEL | G47.33 | | | Active | 18671451 | | | (obstructi | | | | | | | | ve sleep | | | | | | | | apnea) | | | | | | +---------+ + + +--------+ + + | Problem | GERD | | K21.9 | | Active | 395578726 | | | (gastroeso | | | | | | | | phageal | | | | | | | | reflux | | | | | | | | disease) | | | | | | +---------+ + + +--------+ + + | Problem | Diabetes | E11.49 | | | Active | 991049677 | | | mellitus | | | [...] | | G47.00 | | Active | 991172053 | +---------+ + + +--------+ + + | Problem | Lumbosacra | M47.27 | | | Active | 41262726 | | | l | | | [...] | | H81.10 | | Active | 153707905 | | | (benign | | | | | | | | positional | | | | | | | | vertigo) | | | | | | +---------+ + + +--------+ + + | Problem | History of | Z86.19 | | | Active | 0619450974 | | | hepatitis | | | | | 9101 | | | C | | | | | | +---------+ + + +--------+ + + | Problem | Chronic | | J44.1 | | Active | 855845157 | | | obstructiv | | | [...] | | E03.9 | | Active | 59763372 | | | dism | | | | | | +---------+ + + +--------+ + + ALLERGIES Unknown Allergies SOCIAL HISTORY No smoking Hx information available PLAN OF CARE VITAL SIGNS MEDICATIONS + + + + + + [...] | Inhalati | as | | 20 Feb, | | | Active | | l [...] | . BIPAP | as | | 08 Jan, | | [place] | Active | | IPAP/EPA | equipmen | directed | | 2016 | | l | | | P /18 | t, | | | | | [...] 1 tablet | 24h | | 20 May, | 30 days | Active | | m 250 MG | Once a | with a | | | 2016 | | | | | day | [...] | 7 -10 | Active | | 817489 | ly Twice | applicat | | [...] | eous BID | directed | | 2016 | | | | | 31G X [...] + + +--------+ RESULTS No Results PROCEDURES No Known procedures IMMUNIZATIONS No Known Immunizations"
--- OUTSIDE RECORDS SUMMARY | 2017-03-06 18:20 | XMS ---
Demographics + + + | Address | [address] | | | [place] [address] | + + + | Preferred Language | Unknown | + + + | Marital Status | Unknown | + + + | Protestant Affiliation | Unknown | + + + | Race | Unknown | + + + | Ethnic Group | Unknown | + + + Author + + + | Author | [facility] | + + + | Organization | [facility] | + + + | Address | [address] | | | [place] [address] | + + + | Phone | | + + + Care Team Providers + + + + | Care Funeral Home General Manager Name | Role | Phone | + + + + Unavailable | Unavailable | + + + + PROBLEMS + + + + + + + + | Type | Condition | ICD9-CM | [id number] | Onset | Condition | SNOMED | | | | Code | Code | Dates | Status | Code | + + + + + + + + | Problem | Diabetes | E11.49 | | | Active | 658674737 | | | mellitus | | | [...] | | E03.9 | | Active | 96641485 | | | dism | | | | | | + + + + + + + + | Problem | Chronic | | J44.1 | | Active | 774523362 | | | obstructiv | | | [...] | R60.0 | | | Active | 481200308 | + + + + + + + + | Problem | CAD | | I25.10 | | Active | 68963001 | | | (coronary | | | | | | | | artery | | | | | | | | disease) | | | | | | + + + + + + + + | Problem | Chronic | N18.9 | | | Active | 72185181 | | | renal | | | | | | | | failure | | | | | | + + + + + + + + | Problem | Hypertensi | | I10 | | Active | 03420257 | | | on | | | | | | + + + + + + + + | Assessment | Chronic | N18.9 | | 27 October, | Active | 61849911 | | | renal | | | 2017 | | | | | failure | | | | | | + + + + + + + + | Problem | Morbid | | E66.01 | | Active | 555687386 | | | obesity | | | | | | + + + + + + + + | Problem | BPV | | H81.10 | | Active | 065856321 | | | (benign | | | | | | | | positional | | | | | | | | vertigo) | | | | | | + + + + + + + + | Problem | Cirrhosis | K74.60 | | | Active | 36193267 | | | of liver | | | | | | + + + + + + + + | Problem | History of | Z86.19 | | | Active | 3100574507 | | | hepatitis | | | | | 9101 | | | C | | | | | | + + + + + + + + | Problem | Diabetes | 250.90 | | | Active | 620680876 | | | mellitus | | | [...] | 357.2 | | | Active | 664087389 | | | IN | | | | | | | | DIABETES | | | | | | + + + + + + + + | Problem | Chronic | | G89.4 | | Active | 114947724 | | | pain | | | | | | | | syndrome | | | | | | + + + + + + + + | Problem | COPD | | J44.9 | | Active | 21454748 | | | (chronic | | | [...] | | G47.00 | | Active | 815109394 | + + + + + + + + | Problem | Lumbosacra | M47.27 | | | Active | 99831058 | | | l | | | [...] | 782.3 | | | Active | 29546764 | + + + + + + + + | Problem | CHF | | I50.9 | | Active | 75590454 | | | (congestiv | | | | | | | | e heart | | | | | | | | failure) | | | | | | + + + + + + + + | Problem | Hepatitis | | B19.20 | | Active | 53361827 | | | C | | | | | | + + + + + + + + | Problem | GERD | | K21.9 | | Active | 835174154 | | | (gastroeso | | | | | | | | phageal | | | | | | | | reflux | | | | | | | | disease) | | | | | | + + + + + + + + ALLERGIES + + + + +--------+ | Substance | Reaction | Event Type | Date | Status | + + + + +--------+ | Tramadol HCl | muscle cramps | Drug Allergy | October, | Active | + + + + +--------+ | Quinine Sulfate | Unknown | Drug Allergy | October, | Active | + + + + +--------+ SOCIAL HISTORY No smoking Hx information available PLAN OF CARE VITAL SIGNS + + + + | Height | 64 in | 2016-10-27 | + + + + | Weight | 309.8 lbs | 2016-10-27 | + + + + | BMI | 53.17 kg/m2 | 2016-10-27 | + + + + | Temperature | 98.9 degrees Fahrenheit | 2016-10-27 | + + + + | Heart Rate | 80 /min | 2016-10-27 | + + + + | Blood pressure systolic | 145 mm Hg | 2016-10-27 | + + + + | Blood pressure diastolic | 68 mm Hg | 2016-10-27 | + + + + MEDICATIONS + [...] 1 tablet | 24h | | | | Active | | m 250 MG | Once a | with a | | | | | | [...] | Omeprazo | Orally | 1 | 24h | | | 30 days | Active | | le 20 MG | Daily | capsule | | | | | | + [...] as | | 23 Sep, | | 30 days | Active | | Syringe | eous BID | directed | | 2015 | | | | | 31G X | | | | | | | | | 11/03 | fely | | | | | | | | | QID | | | | | | | | | novolog | | | | | | | [...] | 7 -10 | Active | | 603358 | ly Twice | applicat | | [...] | Tessalon | Orally | 1 | 8h | | | 10 | Active | | Perles | Three | capsule | | | | | | | 100 mg | times a | as | | | | | | | | day | needed | | | | | | + [...] + + | Office Visit, Est | October 27, 2016 | | | | Pt., Level 4 | | | | + + + + + | [facility] MED/CURRENT | October 27, 2016 | | | | MED MERGE | | | | + + + + + | DOC MEDS VERIFIED | October 27, 2016 | | | | W/PT OR RE | | | | + + + + + IMMUNIZATIONS No Known Immunizations"
--- OUTSIDE RECORDS SUMMARY | 2017-03-06 18:20 | XMS ---
Demographics + + + | Address | [address] | | | [place] [address] | + + + | Preferred Language [...] | + + + | Organization | [facility] | + + + | Address | [address] | | | [place] [address] | + + + | Phone | | + + + Care Team Providers + + + + | Care Hog Grader Name | Role | Phone | + + + + Unavailable | Unavailable | + + + + PROBLEMS +---------+ + + +--------+ + + | Type | Condition | ICD9-CM | [id number] | Onset | Condition | SNOMED | | | | Code | Code | Dates | Status | Code | +---------+ + + +--------+ + + | Problem | Chronic | | R05 | | Active | [id number] | | | cough | | | | | | +---------+ + + +--------+ + + | Problem | Hypertensi | | I10 | | Active | 65176831 | | | on | | | | | | +---------+ + + +--------+ + + | Problem | CAD | | I25.10 | | Active | 38270863 | | | (coronary | | | | | | | | artery | | | | | | | | disease) | | | | | | +---------+ + + +--------+ + + | Problem | Chronic | | G89.4 | | Active | 607086199 | | | pain | | | | | | | | syndrome | | | | | | +---------+ + + +--------+ + + | Problem | Cirrhosis | K74.60 | | | Active | 85026702 | | | of liver | | | | | | +---------+ + + +--------+ + + | Problem | COPD | | J44.9 | | Active | 87088219 | | | (chronic | | | | | | | | obstructiv | | | | | | | | e | | | | | | | | pulmonary | | | | | | | | disease) | | | | | | +---------+ + + +--------+ + + | Problem | Chronic | N18.9 | | | Active | 94393314 | | | renal | | | | | | | | failure | | | | | | +---------+ + + +--------+ + + | Problem | Diabetes | 250.90 | | | Active | 082295917 | | | mellitus | | | [...] | R60.0 | | | Active | 118395523 | +---------+ + + +--------+ + + | Problem | Syncope | R55 | | | Active | 663238789 | +---------+ + + +--------+ + + | Problem | Functional | | K30 | | Active | 9657326 | | | dyspepsia | | | | | | +---------+ + + +--------+ + + | Problem | Trigger | | M65.331 | | Active | 2224029 | | | finger, | | | | | | | | right | | | | | | | | middle | | | | | | | | finger | | | | | | +---------+ + + +--------+ + + | Problem | Morbidly | E66.01 | | | Active | 743335648 | | | obese | | | | | | +---------+ + + +--------+ + + | Problem | Hepatitis | | B19.20 | | Active | 26889573 | | | C | | | | | | +---------+ + + +--------+ + + | Problem | Edema | 782.3 | | | Active | 56233848 | +---------+ + + +--------+ + + | Problem | NEUROPATHY | 357.2 | | | Active | 534179907 | | | IN | | | | | | | | DIABETES | | | | | | +---------+ + + +--------+ + + | Problem | Hypokalemi | | E87.6 | | Active | 43934986 | | | a | | | | | | +---------+ + + +--------+ + + | Problem | Iron | | E61.1 | | Active | 15556670 | | | deficiency | | | | | | +---------+ + + +--------+ + + | Problem | Hypoxia | | R09.02 | | Active | 718122235 | +---------+ + + +--------+ + + | Problem | CHEL | G47.33 | | | Active | 55295665 | | | (obstructi | | | | | | | | ve sleep | | | | | | | | apnea) | | | | | | +---------+ + + +--------+ + + | Problem | GERD | | K21.9 | | Active | 047403486 | | | (gastroeso | | | | | | | | phageal | | | | | | | | reflux | | | | | | | | disease) | | | | | | +---------+ + + +--------+ + + | Problem | Diabetes | E11.49 | | | Active | 179918751 | | | mellitus | | | [...] | | G47.00 | | Active | 846505473 | +---------+ + + +--------+ + + | Problem | Lumbosacra | M47.27 | | | Active | 42131240 | | | l | | | [...] | | H81.10 | | Active | 515041046 | | | (benign | | | | | | | | positional | | | | | | | | vertigo) | | | | | | +---------+ + + +--------+ + + | Problem | History of | Z86.19 | | | Active | 6708835206 | | | hepatitis | | | | | 9101 | | | C | | | | | | +---------+ + + +--------+ + + | Problem | Chronic | | J44.1 | | Active | 107776950 | | | obstructiv | | | [...] | | E03.9 | | Active | 63705014 | | | dism | | | | | | +---------+ + + +--------+ + + ALLERGIES + + + + +--------+ | Substance | Reaction | Event Type | Date | Status | + + + + +--------+ | Tramadol HCl | muscle cramps | Drug Allergy | Dec, | Active | + + + + +--------+ | Quinine Sulfate | Unknown | Drug Allergy | Dec, | Active | + + + + +--------+ SOCIAL HISTORY No smoking Hx information available PLAN OF CARE + +---------+ | Activity | Details | + +---------+ +---+ | | +---+ + + + | Follow Up | 3 Months Reason:null | + + + | Pending Test | X ray : Hand AP/L/O (3+views)- RT | + + + VITAL SIGNS + + + + | Height | 64 in | 2017-01-04 | + + + + | Weight | 313.2 lbs | 2017-01-04 | + + + + | BMI | 53.75 kg/m2 | 2017-01-04 | + + + + | Heart Rate | 62 /min | 2017-01-04 | + + + + | Blood pressure systolic | 148 mm Hg | 2017-01-04 | + + + + | Blood pressure diastolic | 71 mm Hg | 2017-01-04 | + + + + MEDICATIONS + [...] | | | | | | | 16 | N, QID | | | | [...] | 7 -10 | Active | | [id number] | ly Twice | applicat | | [...] + + | Office Visit, Est | January 04, 2017 | | | | Pt., Level 4 | | | | + + + + + | [facility] MED/CURRENT | January 04, 2017 | | | | MED MERGE | | | | + + + + + | DOC MEDS VERIFIED | January 04, 2017 | | | | W/PT OR RE | | | | + + + + + IMMUNIZATIONS No Known Immunizations"
--- OUTSIDE RECORDS SUMMARY | 2017-03-06 18:20 | XMS ---
Demographics + + + | Address | [address] | | | [place] [address] | + + + | Preferred Language | Unknown | + + + | Marital Status | Unknown | + + + | Scientologist Affiliation | Unknown | + + + | Race | Unknown | + + + | Ethnic Group | Unknown | + + + Author + + + | Author | [facility] | + + + | Organization | [facility] | + + + | Address | [address] | | | [place] [address] | + + + | Phone | | + + + Care Team Providers + + + + | Care Organisation And Methods Analyst Name | Role | Phone | + + + + Unavailable | Unavailable | + + + + PROBLEMS +---------+ + + +--------+ + + | Type | Condition | ICD9-CM | [id number] | Onset | Condition | SNOMED | | | | Code | Code | Dates | Status | Code | +---------+ + + +--------+ + + | Problem | Chronic | | R05 | | Active | 30383461 | | | cough | | | | | | +---------+ + + +--------+ + + | Problem | Hypertensi | | I10 | | Active | 81058125 | | | on | | | | | | +---------+ + + +--------+ + + | Problem | BPV | | H81.10 | | Active | 490760797 | | | (benign | | | | | | | | positional | | | | | | | | vertigo) | | | | | | +---------+ + + +--------+ + + | Problem | CAD | | I25.10 | | Active | 63317301 | | | (coronary | | | | | | | | artery | | | | | | | | disease) | | | | | | +---------+ + + +--------+ + + | Problem | History of | Z86.19 | | | Active | 4442657244 | | | hepatitis | | | | | 9101 | | | C | | | | | | +---------+ + + +--------+ + + | Problem | Chronic | | G89.4 | | Active | 981462415 | | | pain | | | | | | | | syndrome | | | | | | +---------+ + + +--------+ + + | Problem | Cirrhosis | K74.60 | | | Active | 90348301 | | | of liver | | | | | | +---------+ + + +--------+ + + | Problem | Leg edema | R60.0 | | | Active | 678384312 | +---------+ + + +--------+ + + | Problem | Chronic | N18.9 | | | Active | 80940858 | | | renal | | | | | | | | failure | | | | | | +---------+ + + +--------+ + + | Problem | Hypoxia | | R09.02 | | Active | 230947897 | +---------+ + + +--------+ + + | Problem | CHEL | G47.33 | | | Active | 50711539 | | | (obstructi | | | | | | | | ve sleep | | | | | | | | apnea) | | | | | | +---------+ + + +--------+ + + | Problem | NEUROPATHY | 357.2 | | | Active | 157194015 | | | IN | | | | | | | | DIABETES | | | | | | +---------+ + + +--------+ + + | Problem | Diabetes | 250.90 | | | Active | 839878591 | | | mellitus | | | [...] | | J44.9 | | Active | 05318517 | | | (chronic | | | | | | | | obstructiv | | | | | | | | e | | | | | | | | pulmonary | | | | | | | | disease) | | | | | | +---------+ + + +--------+ + + | Problem | Syncope | R55 | | | Active | 142344211 | +---------+ + + +--------+ + + | Problem | Functional | | K30 | | Active | 0392237 | | | dyspepsia | | | | | | +---------+ + + +--------+ + + | Problem | Hypokalemi | | E87.6 | | Active | 84051157 | | | a | | | | | | +---------+ + + +--------+ + + | Problem | Iron | | E61.1 | | Active | 74156947 | | | deficiency | | | | | | +---------+ + + +--------+ + + | Problem | Insomnia | | G47.00 | | Active | 259669681 | +---------+ + + +--------+ + + | Problem | Lumbosacra | M47.27 | | | Active | 35414395 | | | l | | | [...] | 782.3 | | | Active | 96342454 | +---------+ + + +--------+ + + | Problem | Hepatitis | | B19.20 | | Active | 61749536 | | | C | | | | | | +---------+ + + +--------+ + + | Problem | Chronic | | J44.1 | | Active | 785589749 | | | obstructiv | | | [...] | | E03.9 | | Active | 49780498 | | | dism | | | | | | +---------+ + + +--------+ + + | Problem | GERD | | K21.9 | | Active | 705329309 | | | (gastroeso | | | | | | | | phageal | | | | | | | | reflux | | | | | | | | disease) | | | | | | +---------+ + + +--------+ + + | Problem | Diabetes | E11.49 | | | Active | 496020994 | | | mellitus | | | [...] CARE VITAL SIGNS MEDICATIONS Unknown Medications RESULTS + +--------+ + + | Name | Result | Date | Reference Range | + +--------+ + + | PFT a&p albuterol | | 2017-01-06 | | | 2.5mg/3ml unit dose | | | | | w/interpretation | | | | | (05947) | | | | + +--------+ + + PROCEDURES No Known procedures IMMUNIZATIONS No Known Immunizations"
--- OUTSIDE RECORDS SUMMARY | 2017-03-06 18:20 | XMS ---
Demographics + + + | Address | [address] | | | [place] [address] | + + + | Preferred Language | Unknown | + + + | Marital Status | Unknown | + + + | Restorationist Affiliation | Unknown | + + + | Race | Unknown | + + + | Ethnic Group | Unknown | + + + Author + + + | Author | [facility] | + + + | Organization | [facility] | + + + | Address | [address] | | | [place] [address] | + + + | Phone | | + + + Care Team Providers + + + + | Care Adviser Sales Name | Role | Phone | + + + + Unavailable | Unavailable | + + + + PROBLEMS +---------+ + + +--------+ + + | Type | Condition | ICD9-CM | [id number] | Onset | Condition | SNOMED | | | | Code | Code | Dates | Status | Code | +---------+ + + +--------+ + + | Problem | Chronic | | R05 | | Active | 62024890 | | | cough | | | | | | +---------+ + + +--------+ + + | Problem | Hypertensi | | I10 | | Active | 50041266 | | | on | | | | | | +---------+ + + +--------+ + + | Problem | CAD | | I25.10 | | Active | 16762435 | | | (coronary | | | | | | | | artery | | | | | | | | disease) | | | | | | +---------+ + + +--------+ + + | Problem | Chronic | | G89.4 | | Active | 181059578 | | | pain | | | | | | | | syndrome | | | | | | +---------+ + + +--------+ + + | Problem | Cirrhosis | K74.60 | | | Active | 47028708 | | | of liver | | | | | | +---------+ + + +--------+ + + | Problem | COPD | | J44.9 | | Active | 22423041 | | | (chronic | | | | | | | | obstructiv | | | | | | | | e | | | | | | | | pulmonary | | | | | | | | disease) | | | | | | +---------+ + + +--------+ + + | Problem | Chronic | N18.9 | | | Active | 75399282 | | | renal | | | | | | | | failure | | | | | | +---------+ + + +--------+ + + | Problem | Diabetes | 250.90 | | | Active | 880377291 | | | mellitus | | | [...] | R60.0 | | | Active | 355132935 | +---------+ + + +--------+ + + | Problem | Syncope | R55 | | | Active | 380323272 | +---------+ + + +--------+ + + | Problem | Functional | | K30 | | Active | 7527319 | | | dyspepsia | | | | | | +---------+ + + +--------+ + + | Problem | Trigger | | M65.331 | | Active | 6151924 | | | finger, | | | | | | | | right | | | | | | | | middle | | | | | | | | finger | | | | | | +---------+ + + +--------+ + + | Problem | Morbidly | E66.01 | | | Active | 558827624 | | | obese | | | | | | +---------+ + + +--------+ + + | Problem | Hepatitis | | B19.20 | | Active | 85552069 | | | C | | | | | | +---------+ + + +--------+ + + | Problem | Edema | 782.3 | | | Active | 07723261 | +---------+ + + +--------+ + + | Problem | NEUROPATHY | 357.2 | | | Active | 751209500 | | | IN | | | | | | | | DIABETES | | | | | | +---------+ + + +--------+ + + | Problem | Hypokalemi | | E87.6 | | Active | 77367690 | | | a | | | | | | +---------+ + + +--------+ + + | Problem | Iron | | E61.1 | | Active | 60691444 | | | deficiency | | | | | | +---------+ + + +--------+ + + | Problem | Hypoxia | | R09.02 | | Active | 542539354 | +---------+ + + +--------+ + + | Problem | CHEL | G47.33 | | | Active | 78183633 | | | (obstructi | | | | | | | | ve sleep | | | | | | | | apnea) | | | | | | +---------+ + + +--------+ + + | Problem | GERD | | K21.9 | | Active | 594736422 | | | (gastroeso | | | | | | | | phageal | | | | | | | | reflux | | | | | | | | disease) | | | | | | +---------+ + + +--------+ + + | Problem | Diabetes | E11.49 | | | Active | 991692361 | | | mellitus | | | [...] | | G47.00 | | Active | 566997047 | +---------+ + + +--------+ + + | Problem | Lumbosacra | M47.27 | | | Active | 50577932 | | | l | | | [...] | | H81.10 | | Active | 232720633 | | | (benign | | | | | | | | positional | | | | | | | | vertigo) | | | | | | +---------+ + + +--------+ + + | Problem | History of | Z86.19 | | | Active | 6571283731 | | | hepatitis | | | | | 9101 | | | C | | | | | | +---------+ + + +--------+ + + | Problem | Chronic | | J44.1 | | Active | 257336942 | | | obstructiv | | | [...] | | E03.9 | | Active | 41732517 | | | dism | | | | | | +---------+ + + +--------+ + + ALLERGIES Unknown Allergies SOCIAL HISTORY No smoking Hx information available PLAN OF CARE VITAL SIGNS MEDICATIONS Unknown Medications RESULTS No Results PROCEDURES No Known procedures IMMUNIZATIONS No Known Immunizations"
--- OUTSIDE RECORDS SUMMARY | 2017-03-06 18:20 | XMS ---
Demographics + + + | Address | [address] | | | [place] [address] | + + + | Preferred Language | Unknown | + + + | Marital Status | Unknown | + + + | Advent Affiliation | Unknown | + + + | Race | Unknown | + + + | Ethnic Group | Unknown | + + + Author + + + | Author | [facility] | + + + | Organization | [facility] | + + + | Address | [address] | | | [place] [address] | + + + | Phone | | + + + Care Team Providers + + + + | Care Other Sports Official Name | Role | Phone | + + + + Unavailable | Unavailable | + + + + PROBLEMS +---------+ + + +--------+ + + | Type | Condition | ICD9-CM | BRJ60-[id number] | Onset | Condition | SNOMED | | | | Code | Code | Dates | Status | Code | +---------+ + + +--------+ + + | Problem | Chronic | | R05 | | Active | 41191855 | | | cough | | | | | | +---------+ + + +--------+ + + | Problem | Hypertensi | | I10 | | Active | 95410332 | | | on | | | | | | +---------+ + + +--------+ + + | Problem | CAD | | I25.10 | | Active | 55524144 | | | (coronary | | | | | | | | artery | | | | | | | | disease) | | | | | | +---------+ + + +--------+ + + | Problem | Chronic | | G89.4 | | Active | 818780013 | | | pain | | | | | | | | syndrome | | | | | | +---------+ + + +--------+ + + | Problem | Cirrhosis | K74.60 | | | Active | 49555387 | | | of liver | | | | | | +---------+ + + +--------+ + + | Problem | COPD | | J44.9 | | Active | 47844501 | | | (chronic | | | | | | | | obstructiv | | | | | | | | e | | | | | | | | pulmonary | | | | | | | | disease) | | | | | | +---------+ + + +--------+ + + | Problem | Chronic | N18.9 | | | Active | 13049946 | | | renal | | | | | | | | failure | | | | | | +---------+ + + +--------+ + + | Problem | Diabetes | 250.90 | | | Active | 714905606 | | | mellitus | | | [...] | R60.0 | | | Active | 011858565 | +---------+ + + +--------+ + + | Problem | Syncope | R55 | | | Active | 612599363 | +---------+ + + +--------+ + + | Problem | Functional | | K30 | | Active | 3917804 | | | dyspepsia | | | | | | +---------+ + + +--------+ + + | Problem | Trigger | | M65.331 | | Active | 6176510 | | | finger, | | | | | | | | right | | | | | | | | middle | | | | | | | | finger | | | | | | +---------+ + + +--------+ + + | Problem | Morbidly | E66.01 | | | Active | 525511194 | | | obese | | | | | | +---------+ + + +--------+ + + | Problem | Hepatitis | | B19.20 | | Active | 02452425 | | | C | | | | | | +---------+ + + +--------+ + + | Problem | Edema | 782.3 | | | Active | 21158503 | +---------+ + + +--------+ + + | Problem | NEUROPATHY | 357.2 | | | Active | 742500213 | | | IN | | | | | | | | DIABETES | | | | | | +---------+ + + +--------+ + + | Problem | Hypokalemi | | E87.6 | | Active | 06662682 | | | a | | | | | | +---------+ + + +--------+ + + | Problem | Iron | | E61.1 | | Active | 05542730 | | | deficiency | | | | | | +---------+ + + +--------+ + + | Problem | Hypoxia | | R09.02 | | Active | 972754936 | +---------+ + + +--------+ + + | Problem | CHEL | G47.33 | | | Active | 97145883 | | | (obstructi | | | | | | | | ve sleep | | | | | | | | apnea) | | | | | | +---------+ + + +--------+ + + | Problem | GERD | | K21.9 | | Active | 029453153 | | | (gastroeso | | | | | | | | phageal | | | | | | | | reflux | | | | | | | | disease) | | | | | | +---------+ + + +--------+ + + | Problem | Diabetes | E11.49 | | | Active | 908634161 | | | mellitus | | | [...] | | G47.00 | | Active | 427930151 | +---------+ + + +--------+ + + | Problem | Lumbosacra | M47.27 | | | Active | 48935738 | | | l | | | [...] | | H81.10 | | Active | 085065153 | | | (benign | | | | | | | | positional | | | | | | | | vertigo) | | | | | | +---------+ + + +--------+ + + | Problem | History of | Z86.19 | | | Active | 2446875079 | | | hepatitis | | | | | 9101 | | | C | | | | | | +---------+ + + +--------+ + + | Problem | Chronic | | J44.1 | | Active | 782020392 | | | obstructiv | | | [...] | | E03.9 | | Active | 05786932 | | | dism | | | | | | +---------+ + + +--------+ + + ALLERGIES Unknown Allergies SOCIAL HISTORY No smoking Hx information available PLAN OF CARE VITAL SIGNS MEDICATIONS Unknown Medications RESULTS No Results PROCEDURES No Known procedures IMMUNIZATIONS No Known Immunizations"
--- OUTSIDE RECORDS SUMMARY | 2017-03-06 18:20 | XMS ---
Demographics + + + | Address | [address] | | | [place] [address] | + + + | Preferred Language | Unknown | + + + | Marital Status | Unknown | + + + | Christian Affiliation | Unknown | + + + | Race | Unknown | + + + | Ethnic Group | Unknown | + + + Author + + + | Author | [facility] | + + + | Organization | [facility] | + + + | Address | [address] | | | [place] [address] | + + + | Phone | | + + + Care Team Providers + + + + | Care Board Layer Name | Role | Phone | + + + + Unavailable | Unavailable | + + + + PROBLEMS +---------+ + + +--------+ + + | Type | Condition | ICD9-CM | FXQ08-UB | Onset | Condition | SNOMED | | | | Code | Code | Dates | Status | Code | +---------+ + + +--------+ + + | Problem | Diabetes | E11.49 | | | Active | 716210779 | | | mellitus | | | [...] | | E03.9 | | Active | 09201961 | | | dism | | | | | | +---------+ + + +--------+ + + | Problem | Chronic | | J44.1 | | Active | 871401542 | | | obstructiv | | | [...] | R60.0 | | | Active | 269652554 | +---------+ + + +--------+ + + | Problem | CAD | | I25.10 | | Active | 82784334 | | | (coronary | | | | | | | | artery | | | | | | | | disease) | | | | | | +---------+ + + +--------+ + + | Problem | Chronic | N18.9 | | | Active | 27423943 | | | renal | | | | | | | | failure | | | | | | +---------+ + + +--------+ + + | Problem | Hypertensi | | I10 | | Active | 40064345 | | | on | | | | | | +---------+ + + +--------+ + + | Problem | Morbid | | E66.01 | | Active | 151079912 | | | obesity | | | | | | +---------+ + + +--------+ + + | Problem | BPV | | H81.10 | | Active | 924427720 | | | (benign | | | | | | | | positional | | | | | | | | vertigo) | | | | | | +---------+ + + +--------+ + + | Problem | Cirrhosis | K74.60 | | | Active | 97624284 | | | of liver | | | | | | +---------+ + + +--------+ + + | Problem | History of | Z86.19 | | | Active | 2575189432 | | | hepatitis | | | | | 9101 | | | C | | | | | | +---------+ + + +--------+ + + | Problem | Diabetes | 250.90 | | | Active | 963872157 | | | mellitus | | | [...] | 357.2 | | | Active | 705939733 | | | IN | | | | | | | | DIABETES | | | | | | +---------+ + + +--------+ + + | Problem | Chronic | | G89.4 | | Active | 041207639 | | | pain | | | | | | | | syndrome | | | | | | +---------+ + + +--------+ + + | Problem | COPD | | J44.9 | | Active | 88027368 | | | (chronic | | | | | | | | obstructiv | | | | | | | | e | | | | | | | | pulmonary | | | | | | | | disease) | | | | | | +---------+ + + +--------+ + + | Problem | Insomnia | | G47.00 | | Active | 485581347 | +---------+ + + +--------+ + + | Problem | Lumbosacra | M47.27 | | | Active | 24568991 | | | l | | | [...] | 782.3 | | | Active | 84623312 | +---------+ + + +--------+ + + | Problem | CHF | | I50.9 | | Active | 18061665 | | | (congestiv | | | | | | | | e heart | | | | | | | | failure) | | | | | | +---------+ + + +--------+ + + | Problem | Hepatitis | | B19.20 | | Active | 32898110 | | | C | | | | | | +---------+ + + +--------+ + + | Problem | GERD | | K21.9 | | Active | 403407342 | | | (gastroeso | | | [...]
--- OUTSIDE RECORDS SUMMARY | 2017-03-06 18:20 | XMS ---
Demographics + + + | Address | [address] | | | [place] [address] | + + + | Preferred Language | Unknown | + + + | Marital Status | Unknown | + + + | Tenriism Affiliation | Unknown | + + + | Race | Unknown | + + + | Ethnic Group | Unknown | + + + Author + + + | Author | [facility] | + + + | Organization | [facility] | + + + | Address | [address] | | | [place] [address] | + + + | Phone | | + + + Care Team Providers + + + + | Care Berry Picker Name | Role | Phone | + + + + Unavailable | Unavailable | + + + + PROBLEMS +---------+ + + +--------+ + + | Type | Condition | ICD9-CM | [id number] | Onset | Condition | SNOMED | | | | Code | Code | Dates | Status | Code | +---------+ + + +--------+ + + | Problem | Chronic | | R05 | | Active | [id number] | | | cough | | | | | | +---------+ + + +--------+ + + | Problem | Hypertensi | | I10 | | Active | 62998867 | | | on | | | | | | +---------+ + + +--------+ + + | Problem | CAD | | I25.10 | | Active | 44866654 | | | (coronary | | | | | | | | artery | | | | | | | | disease) | | | | | | +---------+ + + +--------+ + + | Problem | Morbid | | E66.01 | | Active | 181685443 | | | obesity | | | | | | +---------+ + + +--------+ + + | Problem | Chronic | | G89.4 | | Active | 727841945 | | | pain | | | | | | | | syndrome | | | | | | +---------+ + + +--------+ + + | Problem | History of | Z86.19 | | | Active | 8357766558 | | | hepatitis | | | | | 9101 | | | C | | | | | | +---------+ + + +--------+ + + | Problem | COPD | | J44.9 | | Active | 23701682 | | | (chronic | | | | | | | | obstructiv | | | | | | | | e | | | | | | | | pulmonary | | | | | | | | disease) | | | | | | +---------+ + + +--------+ + + | Problem | Cirrhosis | K74.60 | | | Active | 67611346 | | | of liver | | | | | | +---------+ + + +--------+ + + | Problem | Leg edema | R60.0 | | | Active | 116669603 | +---------+ + + +--------+ + + | Problem | Chronic | N18.9 | | | Active | 27170749 | | | renal | | | | | | | | failure | | | | | | +---------+ + + +--------+ + + | Problem | Hypoxia | | R09.02 | | Active | 641001757 | +---------+ + + +--------+ + + | Problem | CHEL | G47.33 | | | Active | 35956128 | | | (obstructi | | | | | | | | ve sleep | | | | | | | | apnea) | | | | | | +---------+ + + +--------+ + + | Problem | Edema | 782.3 | | | Active | 99146381 | +---------+ + + +--------+ + + | Problem | NEUROPATHY | 357.2 | | | Active | 527959477 | | | IN | | | | | | | | DIABETES | | | | | | +---------+ + + +--------+ + + | Problem | Diabetes | 250.90 | | | Active | 036563650 | | | mellitus | | | [...] | R55 | | | Active | 589314739 | +---------+ + + +--------+ + + | Problem | Functional | | K30 | | Active | 4301581 | | | dyspepsia | | | | | | +---------+ + + +--------+ + + | Problem | Hypokalemi | | E87.6 | | Active | 61494964 | | | a | | | | | | +---------+ + + +--------+ + + | Problem | Iron | | E61.1 | | Active | 22428089 | | | deficiency | | | | | | +---------+ + + +--------+ + + | Problem | Lumbosacra | M47.27 | | | Active | 07984042 | | | l | | | [...] | | K21.9 | | Active | 297107815 | | | (gastroeso | | | | | | | | phageal | | | | | | | | reflux | | | | | | | | disease) | | | | | | +---------+ + + +--------+ + + | Problem | Hepatitis | | B19.20 | | Active | 42080648 | | | C | | | | | | +---------+ + + +--------+ + + | Problem | Insomnia | | G47.00 | | Active | 747013499 | +---------+ + + +--------+ + + | Problem | Hypothyroi | | E03.9 | | Active | 70879575 | | | dism | | | | | | +---------+ + + +--------+ + + | Problem | BPV | | H81.10 | | Active | 217192252 | | | (benign | | | | | | | | positional | | | | | | | | vertigo) | | | | | | +---------+ + + +--------+ + + | Problem | Diabetes | E11.49 | | | Active | 440552707 | | | mellitus | | | [...] | | J44.1 | | Active | 630401226 | | | obstructiv | | | [...]
--- OUTSIDE RECORDS SUMMARY | 2017-03-06 18:20 | XMS ---
Demographics + + + | Address | [address] | | | [place] [address] | + + + | Preferred Language | Unknown | + + + | Marital Status | Unknown | + + + | Mormonism Affiliation | Unknown | + + + | Race | Unknown | + + + | Ethnic Group | Unknown | + + + Author + + + | Author | [facility] | + + + | Organization | [facility] | + + + | Address | [address] | | | [place] [address] | + + + | Phone | | + + + Care Team Providers + + + + | Care Asphalt Plant Operator Name | Role | Phone | + + + + Unavailable | Unavailable | + + + + PROBLEMS +---------+ + + +--------+ + + | Type | Condition | ICD9-CM | [id number] | Onset | Condition | SNOMED | | | | Code | Code | Dates | Status | Code | +---------+ + + +--------+ + + | Problem | Chronic | | R05 | | Active | 32171115 | | | cough | | | | | | +---------+ + + +--------+ + + | Problem | Hypertensi | | I10 | | Active | 57077000 | | | on | | | | | | +---------+ + + +--------+ + + | Problem | CAD | | I25.10 | | Active | 10430590 | | | (coronary | | | | | | | | artery | | | | | | | | disease) | | | | | | +---------+ + + +--------+ + + | Problem | Morbid | | E66.01 | | Active | 581270917 | | | obesity | | | | | | +---------+ + + +--------+ + + | Problem | Chronic | | G89.4 | | Active | 616576391 | | | pain | | | | | | | | syndrome | | | | | | +---------+ + + +--------+ + + | Problem | History of | Z86.19 | | | Active | 0770654033 | | | hepatitis | | | | | 9101 | | | C | | | | | | +---------+ + + +--------+ + + | Problem | COPD | | J44.9 | | Active | 75706842 | | | (chronic | | | | | | | | obstructiv | | | | | | | | e | | | | | | | | pulmonary | | | | | | | | disease) | | | | | | +---------+ + + +--------+ + + | Problem | Cirrhosis | K74.60 | | | Active | 17338663 | | | of liver | | | | | | +---------+ + + +--------+ + + | Problem | Leg edema | R60.0 | | | Active | 556578510 | +---------+ + + +--------+ + + | Problem | Chronic | N18.9 | | | Active | 70393415 | | | renal | | | | | | | | failure | | | | | | +---------+ + + +--------+ + + | Problem | Hypoxia | | R09.02 | | Active | 624308587 | +---------+ + + +--------+ + + | Problem | CHEL | G47.33 | | | Active | 62778077 | | | (obstructi | | | | | | | | ve sleep | | | | | | | | apnea) | | | | | | +---------+ + + +--------+ + + | Problem | Edema | 782.3 | | | Active | 28792851 | +---------+ + + +--------+ + + | Problem | NEUROPATHY | 357.2 | | | Active | 316162082 | | | IN | | | | | | | | DIABETES | | | | | | +---------+ + + +--------+ + + | Problem | Diabetes | 250.90 | | | Active | 342224566 | | | mellitus | | | [...] | R55 | | | Active | 599572808 | +---------+ + + +--------+ + + | Problem | Functional | | K30 | | Active | 7586975 | | | dyspepsia | | | | | | +---------+ + + +--------+ + + | Problem | Hypokalemi | | E87.6 | | Active | 79319174 | | | a | | | | | | +---------+ + + +--------+ + + | Problem | Iron | | E61.1 | | Active | 92294983 | | | deficiency | | | | | | +---------+ + + +--------+ + + | Problem | Lumbosacra | M47.27 | | | Active | 34392115 | | | l | | | [...] | | K21.9 | | Active | 750739090 | | | (gastroeso | | | | | | | | phageal | | | | | | | | reflux | | | | | | | | disease) | | | | | | +---------+ + + +--------+ + + | Problem | Hepatitis | | B19.20 | | Active | 64706825 | | | C | | | | | | +---------+ + + +--------+ + + | Problem | Insomnia | | G47.00 | | Active | 004450706 | +---------+ + + +--------+ + + | Problem | Hypothyroi | | E03.9 | | Active | 90370777 | | | dism | | | | | | +---------+ + + +--------+ + + | Problem | BPV | | H81.10 | | Active | 002638961 | | | (benign | | | | | | | | positional | | | | | | | | vertigo) | | | | | | +---------+ + + +--------+ + + | Problem | Diabetes | E11.49 | | | Active | 718930394 | | | mellitus | | | [...] | | J44.1 | | Active | 893934637 | | | obstructiv | | | [...]
--- OUTSIDE RECORDS SUMMARY | 2017-03-06 18:20 | XMS ---
Demographics + + + | Address | [address] | | | [place] [address] | + + + | Preferred Language | Unknown | + + + | Marital Status | Unknown | + + + | Taoist Affiliation | Unknown | + + + | Race | Unknown | + + + | Ethnic Group | Unknown | + + + Author + + + | Author | [facility] | + + + | Organization | [facility] | + + + | Address | [address] | | | [place] [address] | + + + | Phone | | + + + Care Team Providers + + + + | Care Polishing Machine Tender Name | Role | Phone | + + + + Unavailable | Unavailable | + + + + PROBLEMS +---------+ + + +--------+ + + | Type | Condition | ICD9-CM | [id number] | Onset | Condition | SNOMED | | | | Code | Code | Dates | Status | Code | +---------+ + + +--------+ + + | Problem | Chronic | | R05 | | Active | 07774400 | | | cough | | | | | | +---------+ + + +--------+ + + | Problem | Hypertensi | | I10 | | Active | 95038359 | | | on | | | | | | +---------+ + + +--------+ + + | Problem | CAD | | I25.10 | | Active | 19218849 | | | (coronary | | | | | | | | artery | | | | | | | | disease) | | | | | | +---------+ + + +--------+ + + | Problem | Morbid | | E66.01 | | Active | 624420334 | | | obesity | | | | | | +---------+ + + +--------+ + + | Problem | Chronic | | G89.4 | | Active | 440470147 | | | pain | | | | | | | | syndrome | | | | | | +---------+ + + +--------+ + + | Problem | History of | Z86.19 | | | Active | 4177794848 | | | hepatitis | | | | | 9101 | | | C | | | | | | +---------+ + + +--------+ + + | Problem | COPD | | J44.9 | | Active | 95647363 | | | (chronic | | | | | | | | obstructiv | | | | | | | | e | | | | | | | | pulmonary | | | | | | | | disease) | | | | | | +---------+ + + +--------+ + + | Problem | Cirrhosis | K74.60 | | | Active | 08959400 | | | of liver | | | | | | +---------+ + + +--------+ + + | Problem | Leg edema | R60.0 | | | Active | 269667107 | +---------+ + + +--------+ + + | Problem | Chronic | N18.9 | | | Active | 32805028 | | | renal | | | | | | | | failure | | | | | | +---------+ + + +--------+ + + | Problem | Hypoxia | | R09.02 | | Active | 477275886 | +---------+ + + +--------+ + + | Problem | CHEL | G47.33 | | | Active | 27053327 | | | (obstructi | | | | | | | | ve sleep | | | | | | | | apnea) | | | | | | +---------+ + + +--------+ + + | Problem | Edema | 782.3 | | | Active | 18122881 | +---------+ + + +--------+ + + | Problem | NEUROPATHY | 357.2 | | | Active | 507103887 | | | IN | | | | | | | | DIABETES | | | | | | +---------+ + + +--------+ + + | Problem | Diabetes | 250.90 | | | Active | 680175578 | | | mellitus | | | [...] | R55 | | | Active | 399119302 | +---------+ + + +--------+ + + | Problem | Functional | | K30 | | Active | 2148237 | | | dyspepsia | | | | | | +---------+ + + +--------+ + + | Problem | Hypokalemi | | E87.6 | | Active | 44843019 | | | a | | | | | | +---------+ + + +--------+ + + | Problem | Iron | | E61.1 | | Active | 72910718 | | | deficiency | | | | | | +---------+ + + +--------+ + + | Problem | Lumbosacra | M47.27 | | | Active | 02664760 | | | l | | | [...] | | K21.9 | | Active | 156050491 | | | (gastroeso | | | | | | | | phageal | | | | | | | | reflux | | | | | | | | disease) | | | | | | +---------+ + + +--------+ + + | Problem | Hepatitis | | B19.20 | | Active | 24629504 | | | C | | | | | | +---------+ + + +--------+ + + | Problem | Insomnia | | G47.00 | | Active | 141067409 | +---------+ + + +--------+ + + | Problem | Hypothyroi | | E03.9 | | Active | 44086050 | | | dism | | | | | | +---------+ + + +--------+ + + | Problem | BPV | | H81.10 | | Active | 597051059 | | | (benign | | | | | | | | positional | | | | | | | | vertigo) | | | | | | +---------+ + + +--------+ + + | Problem | Diabetes | E11.49 | | | Active | 957593739 | | | mellitus | | | [...] | | J44.1 | | Active | 079438789 | | | obstructiv | | | [...] Months Reason:null | + + + | Future/Pending Procedure | Pulmonary Rehab | + + + VITAL SIGNS + + + + | Height | 64 in | 2016-12-10 | + + + + | Weight | 310.2 lbs | 2016-12-10 | + + + + | BMI | 53.24 kg/m2 | 2016-12-10 | + + + + | Temperature | 98.3 degrees Fahrenheit | 2016-12-10 | + + + + | Heart Rate | 68 /min | 2016-12-10 | + + + + | Blood pressure systolic | 172 mm Hg | 2016-12-10 | + + + + | Blood pressure diastolic | 85 mm Hg | 2016-12-10 | + + + + MEDICATIONS + [...] | 7 -10 | Active | | 387966 | ly Twice | applicat | | [...] + + | Office Visit, Est | December 10, 2016 | | | | Pt., Level 4 | | | | + + + + + | [facility] MED/CURRENT | December 10, 2016 | | | | MED MERGE | | | | + + + + + | DOC MEDS VERIFIED | December 10, 2016 | | | | W/PT OR RE | | | | + + + + + IMMUNIZATIONS No Known Immunizations"
--- OUTSIDE RECORDS SUMMARY | 2017-03-06 18:20 | XMS ---
Demographics + + + | Address | [address] | | | [place] [address] | + + + | Preferred Language | Unknown | + + + | Marital Status | Unknown | + + + | Christianity Affiliation | Unknown | + + + | Race | Unknown | + + + | Ethnic Group | Unknown | + + + Author + + + | Author | [facility] | + + + | Organization | [facility] | + + + | Address | [address] | | | [place] [address] | + + + | Phone | | + + + Care Team Providers + + + + | Care Saturator Name | Role | Phone | + + + + Unavailable | Unavailable | + + + + PROBLEMS + + + + + + + + | Type | Condition | ICD9-CM | [id number] | Onset | Condition | SNOMED | | | | Code | Code | Dates | Status | Code | + + + + + + + + | Problem | Hypothyroi | | E03.9 | | Active | 58196052 | | | dism | | | | | | + + + + + + + + | Problem | Morbid | | E66.01 | | Active | 312697554 | | | obesity | | | | | | + + + + + + + + | Problem | BPV | | H81.10 | | Active | 690815031 | | | (benign | | | | | | | | positional | | | | | | | | vertigo) | | | | | | + + + + + + + + | Problem | Syncope | R55 | | | Active | 616206740 | + + + + + + + + | Problem | Chronic | | G89.4 | | Active | 768824876 | | | pain | | | | | | | | syndrome | | | | | | + + + + + + + + | Problem | Functional | | K30 | | Active | 1117269 | | | dyspepsia | | | | | | + + + + + + + + | Problem | CAD | | I25.10 | | Active | 96616055 | | | (coronary | | | | | | | | artery | | | | | | | | disease) | | | | | | + + + + + + + + | Problem | Hypertensi | | I10 | | Active | 82360265 | | | on | | | | | | + + + + + + + + | Problem | Cirrhosis | K74.60 | | | Active | 97902549 | | | of liver | | | | | | + + + + + + + + | Problem | History of | Z86.19 | | | Active | 0237795658 | | | hepatitis | | | | | 9101 | | | C | | | | | | + + + + + + + + | Problem | Leg edema | R60.0 | | | Active | 205310561 | + + + + + + + + | Problem | Chronic | N18.9 | | | Active | 53143180 | | | renal | | | | | | | | failure | | | | | | + + + + + + + + | Problem | NEUROPATHY | 357.2 | | | Active | 143530299 | | | IN | | | | | | | | DIABETES | | | | | | + + + + + + + + | Problem | Edema | 782.3 | | | Active | 14312662 | + + + + + + + + | Problem | COPD | | J44.9 | | Active | 88298613 | | | (chronic | | | [...] | 250.90 | | | Active | 106375364 | | | mellitus | | | [...] | M47.27 | | | Active | 96860372 | | | l | | | [...] | | K21.9 | | Active | 002354324 | | | (gastroeso | | | | | | | | phageal | | | | | | | | reflux | | | | | | | | disease) | | | | | | + + + + + + + + | Assessment | Syncope | R55 | | 10 November, | Active | 892510243 | | | | | | 2016 | | | + + + + + + + + | Problem | Hepatitis | | B19.20 | | Active | 33088772 | | | C | | | | | | + + + + + + + + | Problem | Diabetes | E11.49 | | | Active | 755225384 | | | mellitus | | | [...] | | R05 | | Active | 11387853 | | | cough | | | | | | + + + + + + + + | Problem | Insomnia | | G47.00 | | Active | 332839378 | + + + + + + + + | Problem | Chronic | | J44.1 | | Active | 896051705 | | | obstructiv | | | [...] + + + | Pending Test | Barium : Upper GI Series | + + + | Pending Test | Carotid Ultrasound | + + + | | 3-4 Weeks,Reason: | + + + VITAL SIGNS + + + + | Height | 64 in | 2016-11-10 | + + + + | Weight | 309.2 lbs | 2016-11-10 | + + + + | BMI | 53.07 kg/m2 | 2016-11-10 | + + + + | Temperature | 99.2 degrees Fahrenheit | 2016-11-10 | + + + + | Heart Rate | 65 /min | 2016-11-10 | + + + + | Blood pressure systolic | 142 mm Hg | 2016-11-10 | + + + + | Blood pressure diastolic | 90 mm Hg | 2016-11-10 | + + + + MEDICATIONS + [...] | on q6hrs | directed | | 2016 | | | | | Sulfate | [...] | | | | | 16 | levemir, | | | | | | | [...] | | | | Active | | (65 Fe) | [...] | 7 -10 | Active | | 1080[address] | ly Twice | applicat | | [...] + + + + + +--------+ | Losartan | Orally | 1 tablet | 24h | 08 Feb, | | 30 days | Active | | | Once a | | | 2015 | | | | | Potassiu | day | | | | | | | | m 25 MG | | | | | | | | + + + + + + + +--------+ RESULTS + +--------+ + + | Name | Result | Date | Reference Range | + +--------+ + + | X ray : Chest 2 | | 2016-11-11 | | | views | | | | + +--------+ + + PROCEDURES + + + + + | Procedure | Date Ordered | Related Diagnosis | Body Site | + + + + + | Office Visit, Est | November 10, 2016 | | | | Pt., Level 4 | | | | + + + + + | [facility] MED/CURRENT | November 10, 2016 | | | | MED MERGE | | | | + + + + + | DOC MEDS VERIFIED | November 10, 2016 | | | | W/PT OR RE | | | | + + + + + IMMUNIZATIONS No Known Immunizations"
[2017-03-06] MEDS ORDERED: PREDNISONE20 MG PO (21:21)
== END 2017-03-06 21:31 | disposition home or self-care (01) ==
LOC: ED 17:57
DX: J44.1 Chronic obstructive pulmonary disease with (acute) exacerbation (principal); I25.2 Old myocardial infarction; I10 Essential (primary) hypertension; E11.9 Type 2 diabetes mellitus without complications; Z87.442 Personal history of urinary calculi; Z90.49 Acquired absence of other specified parts of digestive tract; Z90.710 Acquired absence of both cervix and uterus; Z88.8 Allergy status to other drugs, medicaments and biological substances; Z88.5 Allergy status to narcotic agent; Z79.899 Other long term (current) drug therapy
CPT/HCPCS: 71010; 80053; 83735; 83880; 84484; 85025; 93971; 94640; 96374; 99284; J2930

== ENCOUNTER 2017-08-25 16:26 | Emergency (ER) | payer MEDICARE ==
[~2017-08-25] VITALS: Ht 162.6 cm; Wt 136.1 kg
--- OUTSIDE RECORDS SUMMARY | ~2017-08-25 | XMS | Clinical Summary ---
Demographics + + + | Address | [address] | | | [place] [address] | + + + | Home Phone | | + + + | Preferred Language | Unknown | + + + | Marital Status | | + + + | Amish Affiliation | Unknown | + + + | Race | White | + + + | Ethnic Group | Not or | + + + Author + + + | Author | [facility] | + + + | Organization | [facility] | + + + | Address | Unknown | + + + | Phone | Unavailable | + + + Support + + +---------+ + | Name | Relationship | Address | Phone | + + +---------+ + | Peewee Watson | ECON | Unknown | | + + +---------+ + Care Team Providers + +------+ + | Care Gasoline Finisher Name | Role | Phone | + +------+ + | Garret Rojo NP | PP | | + +------+ + Source Comments RYANNE is fully live on both [facility] and [facility] Allergies Not on File Current Medications Not on file Active Problems Not on file Social History + +-------+ +--------+------+ | Tobacco [...] on file | | + + + Plan of Treatment + + + + + | Health Maintenance | Due Date | Last Done | Comments | + + + + + | INFLUENZA VACCINE | | | | | (FLU SHOT) | 7 | | | + + + + + Results Not on filefrom Last 3 Months"
--- OUTSIDE RECORDS SUMMARY | ~2017-08-25 | XMS ---
Demographics + + + | Address | [address] | | | [place] [address] | + + + | Preferred Language | Unknown | + + + | Marital Status | Unknown | + + + | Restorationism Affiliation | Unknown | + + + | Race | Unknown | + + + | Ethnic Group | Unknown | + + + Author + + + | Author | [facility] | + + + | Organization | [facility] | + + + | Address | [address] | | | [place] [address] | + + + | Phone | | + + + Care Team Providers + + + + | Care Heliotherapist Name | Role | Phone | + + + + Unavailable | Unavailable | + + + + PROBLEMS + + + + + + + + | Type | Condition | ICD9-CM | [id number] | Onset | Condition | SNOMED | | | | Code | Code | Dates | Status | Code | + + + + + + + + | Problem | CHF | | I50.9 | | Active | 72500256 | | | (congestiv | | | | | | | | e heart | | | | | | | | failure) | | | | | | + + + + + + + + | Problem | Diabetes | E11.49 | | | Active | 126327393 | | | mellitus | | | [...] | | K21.9 | | Active | 955125505 | | | (gastroeso | | | | | | | | phageal | | | | | | | | reflux | | | | | | | | disease) | | | | | | + + + + + + + + | Problem | Cirrhosis | K74.60 | | | Active | 49755219 | | | of liver | | | | | | + + + + + + + + | Assessment | Skin tag | | L91.8 | 30 Aug, | Active | 909506641 | | | | | | 2017 | | | + + + + + + + + | Problem | History of | Z86.19 | | | Active | 6164993530 | | | hepatitis | | | | | 9101 | | | C | | | | | | + + + + + + + + | Problem | Hypothyroi | | E03.9 | | Active | 28821171 | | | dism | | | | | | + + + + + + + + | Problem | Chronic | | J44.1 | | Active | 825761189 | | | obstructiv | | | [...] | | E66.01 | | Active | 272706528 | | | obesity | | | | | | + + + + + + + + | Problem | BPV | | H81.10 | | Active | 479379538 | | | (benign | | | | | | | | positional | | | | | | | | vertigo) | | | | | | + + + + + + + + | Problem | Chronic | | G89.4 | | Active | 502937147 | | | pain | | | | | | | | syndrome | | | | | | + + + + + + + + | Problem | COPD | | J44.9 | | Active | 40905562 | | | (chronic | | | [...] | | I10 | | Active | 75727513 | | | on | | | | | | + + + + + + + + | Problem | CAD | | I25.10 | | Active | 46456523 | | | (coronary | | | | | | | | artery | | | | | | | | disease) | | | | | | + + + + + + + + | Problem | Edema | 782.3 | | | Active | 83300864 | + + + + + + + + | Problem | Hepatitis | | B19.20 | | Active | 64971858 | | | C | | | | | | + + + + + + + + | Problem | Diabetes | 250.90 | | | Active | 413661641 | | | mellitus | | | [...] | | G47.00 | | Active | 464059527 | + + + + + + + + | Problem | NEUROPATHY | 357.2 | | | Active | 746745692 | | | IN | | | | | | | | DIABETES | | | | | | + + + + + + + + | Problem | Lumbosacra | M47.27 | | | Active | 61891971 | | | l | | | [...] | muscle cramps | Drug Allergy | Aug, | Active | + + + + +--------+ | Quinine Sulfate | Unknown | Drug Allergy | 30 Aug, 2016 | Active | + + + + +--------+ SOCIAL HISTORY No smoking Hx information available PLAN OF CARE + +---------+ | Activity | Details | + +---------+ +---+ | | +---+ + + + | Pending Test | Biopsy | + + + | Future/Pending Procedure | Skin Tag Removal | + + + | | prn,Reason: | + + + VITAL SIGNS + + + + | Height | 64 in | 2016-09-17 | + + + + | Weight | 307.8 lbs | 2016-09-17 | + + + + | BMI | 52.83 kg/m2 | 2016-09-17 | + + + + | Temperature | 98.0 degrees Fahrenheit | 2016-09-17 | + + + + | Heart Rate | 79 /min | 2016-09-17 | + + + + | Blood pressure systolic | 162 mm Hg | 2016-09-17 | + + + + | Blood pressure diastolic | 88 mm Hg | 2016-09-17 | + + + + MEDICATIONS + [...] | | | | | 5/16 | levemir, | | | | | [...] +--------+ | ReliOn N | subcutan | 45 Units | 12h | | | 30 days | Active | | | eously | | | | | | | | | bid | | | | | | | + + + + + + + +--------+ | Levothyr | Orally | 1 tablet | 24h | 14 Mar, | | 30 | Active | | oxine | Once a | | | 2015 | | day(s) | | | Sodium | day | | | | | | | | 50 MCG | | | | | | | | + + + + + + + +--------+ | Nystatin | External | 1 | 12h | | | 7 -10 | Active | | [id number] | ly Twice | applicat | | [...] | | Active | | de 40 mg [...] + + + + + +--------+ | Spironol | Orally | 1 tablet | 24h | | | | Active | | actone | Once a | | | | | | | | 25 MG | day | | | | [...] | + + + + + | REMOVAL OF SKIN | September 17, 2016 | | | | TAGS 1-15 | | | | + + + + + IMMUNIZATIONS No Known Immunizations"
--- OUTSIDE RECORDS SUMMARY | ~2017-08-25 | XMS ---
Demographics + + + | Address | [address] | | | [place] [address] | + + + | Preferred Language [...] | + + + | Organization | [facility] | + + + | Address | [address] | | | [place] [address] | + + + | Phone | | + + + Care Team Providers + + + + | Care Veneer Glue Spreader Name | Role | Phone | + + + + Unavailable | Unavailable | + + + + PROBLEMS +---------+ + + +--------+ + + | Type | Condition | ICD9-CM | [id number] | Onset | Condition | SNOMED | | | | Code | Code | Dates | Status | Code | +---------+ + + +--------+ + + | Problem | Chronic | | R05 | | Active | 79319750 | | | cough | | | | | | +---------+ + + +--------+ + + | Problem | Hypertensi | | I10 | | Active | 97383280 | | | on | | | | | | +---------+ + + +--------+ + + | Problem | CAD | | I25.10 | | Active | 36960579 | | | (coronary | | | | | | | | artery | | | | | | | | disease) | | | | | | +---------+ + + +--------+ + + | Problem | Chronic | | G89.4 | | Active | 921416065 | | | pain | | | | | | | | syndrome | | | | | | +---------+ + + +--------+ + + | Problem | COPD | | J44.9 | | Active | 38362293 | | | (chronic | | | | | | | | obstructiv | | | | | | | | e | | | | | | | | pulmonary | | | | | | | | disease) | | | | | | +---------+ + + +--------+ + + | Problem | Chronic | N18.9 | | | Active | 11444155 | | | renal | | | | | | | | failure | | | | | | +---------+ + + +--------+ + + | Problem | Diabetes | 250.90 | | | Active | 986172590 | | | mellitus | | | [...] | R60.0 | | | Active | 238509783 | +---------+ + + +--------+ + + | Problem | NEUROPATHY | 357.2 | | | Active | 981879967 | | | IN | | | | | | | | DIABETES | | | | | | +---------+ + + +--------+ + + | Problem | Functional | | K30 | | Active | 9157137 | | | dyspepsia | | | | | | +---------+ + + +--------+ + + | Problem | Iron | | E61.1 | | Active | 68727062 | | | deficiency | | | | | | +---------+ + + +--------+ + + | Problem | Syncope | R55 | | | Active | 254399756 | +---------+ + + +--------+ + + | Problem | Mobility | Z74.09 | | | Active | 27026392 | | | impaired | | | | | | +---------+ + + +--------+ + + | Problem | Trigger | | M65.331 | | Active | 9496562 | | | finger, | | | | | | | | right | | | | | | | | middle | | | | | | | | finger | | | | | | +---------+ + + +--------+ + + | Problem | Insomnia | | G47.00 | | Active | 459508189 | +---------+ + + +--------+ + + | Problem | Hepatitis | | B19.20 | | Active | 16827661 | | | C | | | | | | +---------+ + + +--------+ + + | Problem | Edema | 782.3 | | | Active | 47532603 | +---------+ + + +--------+ + + | Problem | CHEL | G47.33 | | | Active | 99224089 | | | (obstructi | | | | | | | | ve sleep | | | | | | | | apnea) | | | | | | +---------+ + + +--------+ + + | Problem | Hypokalemi | | E87.6 | | Active | 09252241 | | | a | | | | | | +---------+ + + +--------+ + + | Problem | Morbidly | E66.01 | | | Active | 112223687 | | | obese | | | | | | +---------+ + + +--------+ + + | Problem | Hypoxia | | R09.02 | | Active | 705445743 | +---------+ + + +--------+ + + | Problem | Diabetes | E11.49 | | | Active | 118409242 | | | mellitus | | | [...] | | J44.1 | | Active | 813520108 | | | obstructiv | | | [...] | M47.27 | | | Active | 22101338 | | | l | | | [...] | | K21.9 | | Active | 549523263 | | | (gastroeso | | | | | | | | phageal | | | | | | | | reflux | | | | | | | | disease) | | | | | | +---------+ + + +--------+ + + | Problem | History of | Z86.19 | | | Active | 5538495298 | | | hepatitis | | | | | 9101 | | | C | | | | | | +---------+ + + +--------+ + + | Problem | Cirrhosis | K74.60 | | | Active | 71338559 | | | of liver | | | | | | +---------+ + + +--------+ + + | Problem | Hypothyroi | | E03.9 | | Active | 61713594 | | | dism | | | | | | +---------+ + + +--------+ + + | Problem | BPV | | H81.10 | | Active | 908053065 | | | (benign | | | | | | | | positional | | | | | | | | vertigo) | | | | | | +---------+ + + +--------+ + + ALLERGIES + + + + +--------+ | Substance | Reaction | Event Type | Date | Status | + + + + +--------+ | Morphine | shortness of | Drug Allergy | Feb, | Active | | | breath | | | | + + + + +--------+ | Tramadol HCl | muscle cramps | Drug Allergy | Feb, | Active | + + + + +--------+ | Quinine Sulfate | Unknown | Drug Allergy | Feb, | Active | + + + + +--------+ SOCIAL HISTORY Never Assessed PLAN OF CARE + +---------+ | Activity | Details | + +---------+ +---+ | | +---+ + + + | Follow Up | prn Reason:null | + + + VITAL SIGNS + + + + | Height | 64 in | 2017-03-15 | + + + + | Weight | 311 lbs | 2017-03-15 | + + + + | BMI | 53.38 kg/m2 | 2017-03-15 | + + + + | Temperature | 97.7 degrees Fahrenheit | 2017-03-15 | + + + + | Heart Rate | 66 /min | 2017-03-15 | + + + + | Blood pressure systolic | 134 mm Hg | 2017-03-15 | + + + + | Blood pressure diastolic | 67 mm Hg | 2017-03-15 | + + + + MEDICATIONS + [...] | 7 -10 | Active | | 957134 | ly Twice | applicat | | [...] + + + +--------+ | Insulin | | | | | | 33 | Active | | Syringe | | DIRECTED | | | | | | | 31G X | | TO | | | | | | | 5/16 | | INJECT | | | | | | | | | TWICE | | | | | | | | | DAILY | | | | | | | | | WITH | | | | | | | | | LEVEMIR | | | | | | | | | AND FOUR | | | | | | | | | TIMES | | | | | | | | | DAILY | | | | | | | | | WITH | | | | | | | | | NOVOLOG | | | | | | + [...] +--------+ RESULTS No Results PROCEDURES + + +--------+ + | Procedure | Date Ordered | Result | Body Site | + + +--------+ + | [facility] MED/CURRENT | Mar 15, 2017 | | | | MED MERGE | | | | + + +--------+ + | DOC MEDS VERIFIED | Mar 15, 2017 | | | | W/PT OR RE | | | | + + +--------+ + IMMUNIZATIONS No Known Immunizations MEDICAL (GENERAL) HISTORY + + +------+ | Type | Description | Date | + + +------+ | Medical History | Chronic Pain- neuropathy, | | | | lower back DDD. | | + + +------+ | Medical History | Diabetes | | + + +------+ | Medical History | fracture ribs, left wrist, | | | | left ankle | | + + +------+ | Medical History | liver disease | | + + +------+ | Medical History | hepatitis C--treated early | | | | 2016 with [facility]. | | + + +------+ | Medical History | lung disease | | + + +------+ | Medical History | Hypertension | | + + +------+ | Medical History | COPD | | + + +------+ | Medical History | asthma | | + + +------+ | Medical History | Arthritis | | + + +------+ | Medical History | Esophageal reflux | | + + +------+ | Medical History | Upper GI swallow exam | | | | (11/17/16): Silent | | | | aspiration. A modified | | | | esophagram is recommended | | | | by radiologist. Tiny Hiatal | | | | hernia. | | + + +------+ | Medical History | Carotid US (11/17/16): | | | | minimal atherosclerotic | | | | plaque -0 to 15% | | + + +------+ | Surgical History | cholecystectomy | | + + +------+ | Surgical History | tonsillectomy | | + + +------+ | Surgical History | adnoidectomy | | + + +------+ | Surgical History | cyst removal | | + + +------+ | Surgical History | partial hysterectomy | | + + +------+ | Hospitalization History | asthma | | + + +------+ | Hospitalization History | hypertension | | + + +------+ | Hospitalization History | surgery | | + + +------+ | Hospitalization History | Respiratory failure | | + + +------+"
--- OUTSIDE RECORDS SUMMARY | ~2017-08-25 | XMS | Clinical Summary ---
Demographics + + + | Address | [address] | | | [place] [address] | + + + | Home Phone | | + + + | Preferred Language | Unknown | + + + | Marital Status | | + + + | Adventist Affiliation [...] Team Providers + +------+ + | Care Housing Relocation Name | Role | Phone | + +------+ + | Garret Rojo NP | PP | | + +------+ + Source Comments RYANNE is fully live on both [facility] and [facility] Allergies Not on File Current Medications Not [...]
--- OUTSIDE RECORDS SUMMARY | ~2017-08-25 | XMS ---
Demographics + + + | Address | [address] | | | [place] [address] | + + + | Preferred Language [...] | + + + | Organization | [facility] | + + + | Address | [address] | | | [place] [address] | + + + | Phone | | + + + Care Team Providers + + + + | Care Meter/Relay Craftsman Name | Role | Phone | + + + + Unavailable | Unavailable | + + + + PROBLEMS +---------+ + + +--------+ + + | Type | Condition | ICD9-CM | [id number] | Onset | Condition | SNOMED | | | | Code | Code | Dates | Status | Code | +---------+ + + +--------+ + + | Problem | CHF | | I50.9 | | Active | 19385775 | | | (congestiv | | | | | | | | e heart | | | | | | | | failure) | | | | | | +---------+ + + +--------+ + + | Problem | Diabetes | E11.49 | | | Active | 064579893 | | | mellitus | | | [...] | | K21.9 | | Active | 811936492 | | | (gastroeso | | | | | | | | phageal | | | | | | | | reflux | | | | | | | | disease) | | | | | | +---------+ + + +--------+ + + | Problem | Cirrhosis | K74.60 | | | Active | 02722460 | | | of liver | | | | | | +---------+ + + +--------+ + + | Problem | History of | Z86.19 | | | Active | 5442406123 | | | hepatitis | | | | | 9101 | | | C | | | | | | +---------+ + + +--------+ + + | Problem | Hypothyroi | | E03.9 | | Active | 93126881 | | | dism | | | | | | +---------+ + + +--------+ + + | Problem | Chronic | | J44.1 | | Active | 649812014 | | | obstructiv | | | [...] | | E66.01 | | Active | 361999440 | | | obesity | | | | | | +---------+ + + +--------+ + + | Problem | BPV | | H81.10 | | Active | 516731174 | | | (benign | | | | | | | | positional | | | | | | | | vertigo) | | | | | | +---------+ + + +--------+ + + | Problem | Chronic | | G89.4 | | Active | 683486394 | | | pain | | | | | | | | syndrome | | | | | | +---------+ + + +--------+ + + | Problem | COPD | | J44.9 | | Active | 04535505 | | | (chronic | | | | | | | | obstructiv | | | | | | | | e | | | | | | | | pulmonary | | | | | | | | disease) | | | | | | +---------+ + + +--------+ + + | Problem | Hypertensi | | I10 | | Active | 46090128 | | | on | | | | | | +---------+ + + +--------+ + + | Problem | CAD | | I25.10 | | Active | 24498469 | | | (coronary | | | | | | | | artery | | | | | | | | disease) | | | | | | +---------+ + + +--------+ + + | Problem | Edema | 782.3 | | | Active | 29643477 | +---------+ + + +--------+ + + | Problem | Hepatitis | | B19.20 | | Active | 51203085 | | | C | | | | | | +---------+ + + +--------+ + + | Problem | Diabetes | 250.90 | | | Active | 569448086 | | | mellitus | | | [...] | | G47.00 | | Active | 646052701 | +---------+ + + +--------+ + + | Problem | NEUROPATHY | 357.2 | | | Active | 083139782 | | | IN | | | | | | | | DIABETES | | | | | | +---------+ + + +--------+ + + | Problem | Lumbosacra | M47.27 | | | Active | 20442278 | | | l | | | [...]
--- OUTSIDE RECORDS SUMMARY | ~2017-08-25 | XMS ---
Demographics + + + | Address | [address] | | | [place] [address] | + + + | Preferred Language | Unknown | + + + | Marital Status | Unknown | + + + | Evangelical Affiliation | Unknown | + + + | Race | Unknown | + + + | Ethnic Group | Unknown | + + + Author + + + | Author | [facility] | + + + | Organization | [facility] | + + + | Address | [address] | | | [place] [address] | + + + | Phone | | + + + Care Team Providers + + + + | Care Drug Regulatory Affairs Specialist Name | Role | Phone | + + + + Unavailable | Unavailable | + + + + PROBLEMS +---------+ + + +--------+ + + | Type | Condition | ICD9-CM | [id number] | Onset | Condition | SNOMED | | | | Code | Code | Dates | Status | Code | +---------+ + + +--------+ + + | Problem | Chronic | | R05 | | Active | 55964350 | | | cough | | | | | | +---------+ + + +--------+ + + | Problem | Hypertensi | | I10 | | Active | 18344664 | | | on | | | | | | +---------+ + + +--------+ + + | Problem | CAD | | I25.10 | | Active | 61078592 | | | (coronary | | | | | | | | artery | | | | | | | | disease) | | | | | | +---------+ + + +--------+ + + | Problem | Chronic | | G89.4 | | Active | 357602559 | | | pain | | | | | | | | syndrome | | | | | | +---------+ + + +--------+ + + | Problem | Cirrhosis | K74.60 | | | Active | 92083691 | | | of liver | | | | | | +---------+ + + +--------+ + + | Problem | COPD | | J44.9 | | Active | 28303819 | | | (chronic | | | | | | | | obstructiv | | | | | | | | e | | | | | | | | pulmonary | | | | | | | | disease) | | | | | | +---------+ + + +--------+ + + | Problem | Chronic | N18.9 | | | Active | 61374438 | | | renal | | | | | | | | failure | | | | | | +---------+ + + +--------+ + + | Problem | Diabetes | 250.90 | | | Active | 589068493 | | | mellitus | | | [...] | R60.0 | | | Active | 750392660 | +---------+ + + +--------+ + + | Problem | Syncope | R55 | | | Active | 191367669 | +---------+ + + +--------+ + + | Problem | Functional | | K30 | | Active | 2877726 | | | dyspepsia | | | | | | +---------+ + + +--------+ + + | Problem | Trigger | | M65.331 | | Active | 4065731 | | | finger, | | | | | | | | right | | | | | | | | middle | | | | | | | | finger | | | | | | +---------+ + + +--------+ + + | Problem | Morbidly | E66.01 | | | Active | 669877003 | | | obese | | | | | | +---------+ + + +--------+ + + | Problem | Hepatitis | | B19.20 | | Active | 17550488 | | | C | | | | | | +---------+ + + +--------+ + + | Problem | Edema | 782.3 | | | Active | 99152371 | +---------+ + + +--------+ + + | Problem | NEUROPATHY | 357.2 | | | Active | 596168213 | | | IN | | | | | | | | DIABETES | | | | | | +---------+ + + +--------+ + + | Problem | Hypokalemi | | E87.6 | | Active | 68234913 | | | a | | | | | | +---------+ + + +--------+ + + | Problem | Iron | | E61.1 | | Active | 18480086 | | | deficiency | | | | | | +---------+ + + +--------+ + + | Problem | Hypoxia | | R09.02 | | Active | 228109591 | +---------+ + + +--------+ + + | Problem | CHEL | G47.33 | | | Active | 07978732 | | | (obstructi | | | | | | | | ve sleep | | | | | | | | apnea) | | | | | | +---------+ + + +--------+ + + | Problem | GERD | | K21.9 | | Active | 605588378 | | | (gastroeso | | | | | | | | phageal | | | | | | | | reflux | | | | | | | | disease) | | | | | | +---------+ + + +--------+ + + | Problem | Diabetes | E11.49 | | | Active | 230194061 | | | mellitus | | | [...] | | G47.00 | | Active | 304220106 | +---------+ + + +--------+ + + | Problem | Lumbosacra | M47.27 | | | Active | 24985238 | | | l | | | [...] | | H81.10 | | Active | 494848493 | | | (benign | | | | | | | | positional | | | | | | | | vertigo) | | | | | | +---------+ + + +--------+ + + | Problem | History of | Z86.19 | | | Active | 9098206942 | | | hepatitis | | | | | 9101 | | | C | | | | | | +---------+ + + +--------+ + + | Problem | Chronic | | J44.1 | | Active | 110338478 | | | obstructiv | | | [...] | | E03.9 | | Active | 86018497 | | | dism | | | | | | +---------+ + + +--------+ + + ALLERGIES No Information SOCIAL HISTORY Never Assessed PLAN OF CARE VITAL SIGNS MEDICATIONS Unknown Medications RESULTS No Results PROCEDURES No Known procedures IMMUNIZATIONS No Known Immunizations MEDICAL (GENERAL) HISTORY [...] early | | | | 2016 with [facility]. | | + + +------+ | [...]
[~2017-08-25 16:26] MED LIST changes: +BACLOFEN10 MG PO; +HYDROCODON-ACE1 EAC8 PO; +MORPHINE SULFAT15 M1 PO; +PREDNISONE20 MG PO
[2017-08-25] MEDS ORDERED: AUGMENTIN 875-1 EACH PO (17:34)
== END 2017-08-25 17:43 | disposition home or self-care (01) ==
LOC: ED 16:26
DX: L03.116 Cellulitis of left lower limb (principal); I25.2 Old myocardial infarction; I10 Essential (primary) hypertension; E11.9 Type 2 diabetes mellitus without complications; J44.9 Chronic obstructive pulmonary disease, unspecified; Z87.891 Personal history of nicotine dependence; Z88.5 Allergy status to narcotic agent; Z88.8 Allergy status to other drugs, medicaments and biological substances; Z79.899 Other long term (current) drug therapy; Z79.891 Long term (current) use of opiate analgesic; Z79.4 Long term (current) use of insulin
CPT/HCPCS: 93971; 99284

== ENCOUNTER 2019-05-20 14:00 | Emergency (ER) | payer MEDICARE ==
[~2019-05-20] VITALS: Ht 162.6 cm; Wt 136.1 kg
--- OUTSIDE RECORDS SUMMARY | ~2019-05-20 | XMS | Encounter Summary ---
Demographics + + + | Address | [address] | | | [place] [address] | + + + | Home Phone | | + + + | Preferred Language | Unknown | + + + | Marital Status | Legally | + + + | Gnosticist Affiliation | Unknown | + + + | Race | Unknown | + + + | Ethnic Group | Unknown | + + + Author + + + | Author | [facility] | | | and [place] | + + + | Organization | [facility] | | | [...] [place] | | | | | [address] | | + + + + + | Vonnie Martinez | ECON | Unknown | | + + + + + Care Team Providers + +------+ + | Care Cafe Site Attendant Name | Role | Phone | + +------+ + | Oscar Taylor PA-C | PCP | | + +------+ + Encounter Details +--------+ + + + + | Date | Type | Department | Care Team | Description | +--------+ + + + + | 01/12/ | Orders Only | [facility] | Provider, | Chronic kidney | | 2019 | | SYSTEM GENERIC OP | MD [address] | disease, stage III | | | | CONVERSION [address] | [address] | (moderate) (HCC); | | | | [address] [place], [place] | [place] [address] | Essential (primary) | | | | [address] | | hypertension; | | | | [phone] | | Generalized edema; | | | | | | Proteinuria | +--------+ + + + + Social [...] as of this encounter Plan of Treatment +--------+ + + + + | Date | Type | Specialty | Care Team | Description | +--------+ + + + + | 05/25/ | Clinical | Cardiology | Sabas Gaxiola, | | | 2019 | Support | | MD [address] | | | | | | [place], | | | | | | [place] [address] | | | | | | [phone] | | | | | | | | +--------+ + + + + | 06/12/ | Office | Cardiology | [facility] [place] | | | 2019 | Visit | | [address] | | | | | | [address] | | | | | | [place] [address] | | | | | | [phone] | | | | | | | | +--------+ + + + + + +------+--------+ + + | Name | Type | Priori | Associated Diagnoses | Order Schedule | | | | ty | | | + +------+--------+ + + | Protein/Creatinine | Lab | Routin | Chronic kidney | Expected: | | Ratio, Urine | | e | disease, stage III | 10/27/2018, Expires: | | | | | (moderate) ([facility]) | 04/27/2020 | | | | | Essential (primary) | | | | | | hypertension | | | | | | Generalized edema | | | | | | Proteinuria | | + +------+--------+ + + documented as of this encounter Visit Diagnoses + + | Diagnosis | + + | Chronic kidney disease, stage III (moderate) ([facility]) Chronic kidney disease, Stage III | | (moderate) | + + | Essential (primary) hypertension Unspecified essential hypertension | + + | Generalized edema Edema | + + | Proteinuria | + + documented in this encounter"
--- OUTSIDE RECORDS SUMMARY | ~2019-05-20 | XMS | Encounter Summary ---
Demographics + + + | Address | [address] | | | [place] [address] | + + + | Home Phone | | + + + | Preferred Language | Unknown | + + + | Marital Status | Legally | + + + | Quaker Affiliation | Unknown | + + + | Race | Unknown | + + + | Ethnic Group | Unknown | + + + Author + + + | Author | [facility] | | | and [place] | + + + | Organization | [facility] | | | [...] [place] | | | | | [address] | | + + + + + | Vonnie Martinez | ECON | Unknown | | + + + + + Care Team Providers + +------+ + | Care Director Recreation Name | Role | Phone | + +------+ + | Oscar Taylor PA-C | PCP | | + +------+ + Encounter Details +--------+ + + + + | Date | Type | Department | Care Team | Description | +--------+ + + + + | 11/19/ | Orders Only | [facility] | Jeremiah Mendoza MD | | | 2016 | | NEPHROLOGY [place] | [address] [place] | | | | | [address] [place] | [address] [place], [place] | | | | | [facility] [place] [place] [facility] [address] | | | | | [address] | | | | | | [phone] | | | +--------+ + + + [...] | | | | | | [place] | | | | | | [place] [address] | | | | | | [phone] | | | | | | | | +--------+ + + + + | 06/12/ | Office | Cardiology | Linda Angeles | | | 2019 | Visit | | [address] | | | | | | [place] | | | | | | [place] [address] | | | | | | [phone] | | | | | | | | +--------+ + + + + documented as of this encounter Procedures + +--------+ + + + | Procedure Name | Priori | Date/Time | Associated Diagnosis | Comments | | | ty | | | | + +--------+ + + + | EXTERNAL LAB: WILL | Routin | 11/19/2016 | | Results for this | | | e | 8:07 AM | | procedure are in the | | | | PDT | | results section. | + +--------+ + + + | URINALYSIS WITH | Routin | 11/19/2016 | | Results for this | | MICROSCOPIC IF | e | 8:07 AM | | procedure are in the | | INDICATED | | PDT | | results section. | + +--------+ + + + | PROTEIN/CREATININE | Routin | 11/19/2016 | | Results for this | | RATIO, URINE | e | 8:07 AM | | procedure are in the | | | | PDT | | results section. | + +--------+ + + + | URIC ACID | Routin | 11/19/2016 | | Results for this | | | e | 8:07 AM | | procedure are in the | | | | PDT | | results section. | + +--------+ + + + | MAGNESIUM | Routin | 11/19/2016 | | Results for this | | | e | 8:07 AM | | procedure are in the | | | | PDT | | results section. | + +--------+ + + + | BASIC METABOLIC | Routin | 11/19/2016 | | Results for this | | PANEL | e | 8:07 AM | | procedure are in the | | | | PDT | | results section. | + +--------+ + + + documented in this encounter Results Protein/Creatinine Ratio, Urine (11/19/2016 8:07 AM PDT) + + + + + + | Component | Value | Ref Range | Performed | Pathologist | | | | | At | Signature | + + + + + + | Protein/Cre | 165.5 (A) | 0 - 150 | EXTERNAL | [...] | | | + +---------+ + + Urinalysis with Microscopic if Indicated (11/19/2016 8:07 AM PDT) + + + + + [...] + + + | Spec Grav, | 1.015 | 1.005 - 1.030 | EXTERNAL | | | Fluid | | | LAB | | + + + + + + | Leukocyte | Comment: 100 | | EXTERNAL | | | Esterase, | | | LAB | | | Urine | | | | | + + + + + + | Nitrite, | Comment: Positive | | EXTERNAL | | | Urine [...] + +---------+ + + External Lab: CBC (11/19/2016 8:07 AM PDT) + + + + + + | Component | Value | Ref Range | Performed | Pathologist | | | | | At | Signature | + + + + + + | WBC | 10.0 | 4.5 - 11.0 10 | EXTERNAL | | | | | | LAB | | + + + + + + | RED CELL | 4.14 | 3.8 - 5.1 10 | EXTERNAL | | | COUNT | | | LAB | | + + + + + + | Hgb | 10.9 (A) | 12.0 - 16.0 | EXTERNAL | | | | | g/dL | LAB | | + + + + + + | Hematocrit, | 34.5 (A) | 35 - 45 % | EXTERNAL | | | POC | | | LAB | | + + + + + + | MCV | 83.5 | 81 - 99 fL | EXTERNAL | | | | | | LAB | | + + + + + + | MCH | 26 (A) | 27 - 33 pg | EXTERNAL | | | | | | LAB | | + + + + + + | MCHC | 32 | 30 - 36 g/dL | EXTERNAL | | | | | | LAB | | + + + + + + | Platelet | 142 | 140 - 440 K/ L | EXTERNAL | | | Count | | | LAB | | | Plasma | | | | | + + + + + + | RDW-CV | 14.9 | 10.5 - 15.0 % | EXTERNAL [...] | + +---------+ + + Uric Acid (11/19/2016 8:07 AM PDT) + +---------+ + + + | Component | Value | Ref Range | Performed | Pathologist | | | | | At | Signature | + +---------+ + + + | Uric Acid | 6.9 (A) | 2.3 - 6.6 | EXTERNAL [...] | | + +---------+ + + Magnesium (11/19/2016 8:07 AM PDT) + +-------+ + + + [...] + +---------+ + + Basic Metabolic Panel (11/19/2016 8:07 AM PDT) + + + + + + | Component | Value | Ref Range | Performed | Pathologist | | | | | At | Signature | + + + + + + | Glucose, | 125 (A) | 70 - 100 mg/dL | EXTERNAL | | | Fasting | | | LAB | | + + + + + + | BUN | 23 | 6 - 23 mg/dL | EXTERNAL | | | | | | LAB | | + + + + + + | Creatinine | 1.47 (A) | 0.70 - 1.25 | EXTERNAL | | | | | mg/dL | LAB | | + + + + + + | BUN/Creatin | 15.6 | 6.0 - 28.6 | EXTERNAL | | | ine Ratio | | | LAB | | + + + + + + | Calcium | 9.0 | 8.4 - 10.2 | EXTERNAL | | | | | mg/dL | LAB | | + + + + + + | Na | 140 | 132 - 143 | EXTERNAL | | | | | mmol/L | LAB | | + + + + + + | K | 4.3 | 3.6 - 5.1 | EXTERNAL | | | | | mmol/L | LAB | | + + + + + + | Cl | 104 | 95 - 112 mmol/L | EXTERNAL | | | | | | LAB | | + + + + + + | CO2 | 25 | 19 - 31 mmol/L | EXTERNAL | | | | | | LAB | | + + + + + + | Anion Gap | 15.3 | 7 - 21 mmol/L | EXTERNAL | | | | | | LAB | | + + + + + + | Estimated | 36 | mg/dL | EXTERNAL | | | [...]
--- OUTSIDE RECORDS SUMMARY | ~2019-05-20 | XMS | Encounter Summary ---
Demographics + + + | Address | [address] | | | [place] [address] | + + + | Home Phone | | + + + | Preferred Language | Unknown | + + + | Marital Status | Legally | + + + | Sikhism Affiliation | Unknown | + + + | Race | Unknown | + + + | Ethnic Group | Unknown | + + + Author + + + | Author | [facility] | | | and [place] | + + + | Organization | [facility] | | [...] [place] | | | | | [address] | | + + + + + | Vonnie Martinez | ECON | Unknown | | + + + + + Care Team Providers + +------+ + | Care Perinatology Physician Name | Role | Phone | + +------+ + | Oscar Taylor PA-C | PCP | | + +------+ + Encounter Details +--------+ + + + + | Date | Type | Department | Care Team | Description | +--------+ + + + + | 11/11/ | Orders Only | [facility] | Conversion | | | 2017 | | NEPHROLOGY [place] | Transaction, | | | | | [address] | Provider Unknown | | | | | [address] [facility] | | | | | | [address] | (Fax) | | | | | [phone] | | | +--------+ + + + [...] [place], | | | | | | [place] [address] | | | | | | [phone] | | | | | | | | +--------+ + + + + | 06/12/ | Office | Cardiology | Bridgette Linda | | | 2019 | Visit | | [address] | | | | | | [place] | | | | | | [place] [address] | | | | | | [phone] | | | | | | | | +--------+ + + + + documented as of this encounter Procedures + +--------+ + + + | Procedure Name | Priori | Date/Time | Associated Diagnosis | Comments | | | ty | | | | + +--------+ + + + | EXTERNAL LAB: WILL | Routin | 11/11/2016 | | Results for this | | | e | 12:10 PM | | procedure are in the | | | | PDT | | results section. | + +--------+ + + + | BASIC METABOLIC | Routin | 11/11/2016 | | Results for this | | PANEL | e | 12:10 PM | | procedure are in the | | | | PDT | | results section. | + +--------+ + + + documented in this encounter Results External Lab: CBC (11/11/2016 12:10 PM PDT) + + + + + + | Component | Value | Ref Range | Performed | Pathologist | | | | | At | Signature | + + + + + + | WBC | 9.6 | 4.5 - 11.0 10 | EXTERNAL | | | | | | LAB | | + + + + + + | RED CELL | 4.18 | 3.8 - 5.1 10 | EXTERNAL | | | COUNT | | | LAB | | + + + + + + | Hgb | 11.1 (A) | 12.0 - 16.0 | EXTERNAL | | | | | g/dL | LAB | | + + + + + + | Hematocrit, | 34.3 (A) | 35 - 45 % | EXTERNAL | | | POC | | | LAB | | + + + + + + | MCV | 82.2 | 81 - 99 fL | EXTERNAL | | | | | | LAB | | + + + + + + | MCH | 27 | 27 - 33 pg | EXTERNAL | | | | | | LAB | | + + + + + + | MCHC | 32 | 30 - 36 g/dL | EXTERNAL | | | | | | LAB | | + + + + + + | Platelet | 155 | 140 - 440 K/ L | [...] + +---------+ + + Basic Metabolic Panel (11/11/2016 12:10 PM PDT) + + + + + + | Component | Value | Ref Range | Performed | Pathologist | | | | | At | Signature | + + + + + + | Glucose, | 255 (A) | 70 - 100 mg/dL | EXTERNAL | | | Fasting | | | LAB | | + + + + + + | BUN | 48 (A) | 6 - 23 mg/dL | EXTERNAL | | | | | | LAB | | + + + + + + | Creatinine | 1.73 (A) | 0.70 - 1.25 | EXTERNAL | | | | | mg/dL | LAB | | + + + + + + | BUN/Creatin | 27.7 | 6.0 - 28.6 | EXTERNAL | | | ine Ratio | | | LAB | | + + + + + + | Calcium | 9.3 | 8.4 - 10.2 | EXTERNAL | [...] + + + + | Cl | 91 (A) | 95 - 112 mmol/L | EXTERNAL | | | | | | LAB | | + + + + + + | CO2 | 32 (A) | 19 - 31 mmol/L | EXTERNAL | | | | | | LAB | | + + + + + + | Anion Gap | 18.4 | 7 - 21 mmol/L | EXTERNAL | | | | | | LAB | | + + + + + + | Estimated | 30 | mg/dL | EXTERNAL | | | [...]
--- OUTSIDE RECORDS SUMMARY | ~2019-05-20 | XMS | Encounter Summary ---
Demographics + + + | Address | [address] | | | [place] [address] | + + + | Home Phone | | + + + | Preferred Language | Unknown | + + + | Marital Status | Legally | + + + | Jehovah'S Witness Affiliation | Unknown | + + + | Race | Unknown | + + + | Ethnic Group | Unknown | + + + Author + + + | Author | [facility] | | | and [place] | + + + | Organization | [facility] | | | [...] [place] | | | | | [address] | | + + + + + | Vonnie Martinez | ECON | Unknown | | + + + + + Care Team Providers + +------+ + | Care Ob/Gyn Physician Name | Role | Phone | + +------+ + | Oscar Taylor PA-C | PCP | | + +------+ + Encounter Details +--------+ + + + + | Date | Type | Department | Care Team | Description | +--------+ + + + + | 12/24/ | Orders Only | [facility] | Conversion | | | 2018 | | NEPHROLOGY [place] | Transaction, | | | | | [address] | Provider Unknown | | | | | [address] [place] | | | | | | [address] | (Fax) | | | | | [phone] | | | +--------+ + + + [...] | | | | | | [place], | | | | | | [place] [address] | | | | | | [phone] | | | | | | | | +--------+ + + + + | 06/12/ | Office | Cardiology | Bridgette Linda | | | 2019 | Visit | | [address] | | | | | | [place] | | | | | | [place] [address] | | | | | | [phone] | | | | | | | | +--------+ + + + + documented as of this encounter Procedures + +--------+ + + + | Procedure Name | Priori | Date/Time | Associated Diagnosis | Comments | | | ty | | | | + +--------+ + + + | EXTERNAL LAB: WILL | Routin | 12/24/2017 | | Results [...] - 1.030 | EXTERNAL | | | [place] | | | LAB | | + [...] | | | LAB | | | [place] | | | | | + + [...]
--- OUTSIDE RECORDS SUMMARY | ~2019-05-20 | XMS | Encounter Summary ---
Demographics + + + | Address | [address] | | | [place] [address] | + + + | Home Phone | | + + + | Preferred Language | Unknown | + + + | Marital Status | Legally | + + + | Christianity Affiliation | Unknown | + + + | Race | Unknown | + + + | Ethnic Group | Unknown | + + + Author + + + | Author | [facility] | | | and [place] | + + + | Organization | [facility] | | | [...] [place] | | | | | [address] | | + + + + + | Vonnie Martinez | ECON | Unknown | | + + + + + Care Team Providers + +------+ + | Care Content Director Name | Role | Phone | + +------+ + | Oscar Taylor PA-C | PCP | | + +------+ + Encounter Details +--------+ + + + + | Date | Type | Department | Care Team | Description | +--------+ + + + + | 11/11/ | Orders Only | [facility] | Conversion | | | 2017 | | NEPHROLOGY [place] | Transaction, | | | | | [address] | Provider Unknown | | | | | [address] [facility] | | | | | | [address] | (Fax) | | | | | [phone] | | | +--------+ + + + [...] | | | | | | [place] [address] | | | | | | [phone] | | | | | | | | +--------+ + + + + | 06/12/ | Office | Cardiology | Bridgette Linda | | | 2019 | Visit | | [address] | | | | | | [place] | | | | | | [place] [address] | | | | | | [phone] | | | | | | | [...]
--- OUTSIDE RECORDS SUMMARY | ~2019-05-20 | XMS | Clinical Summary ---
Demographics + + + | Address | [address] | | | [place] [address] | + + + | Home Phone | | + + + | Preferred Language | Unknown | + + + | Marital Status | Legally | + + + | Presybeterian Affiliation | Unknown | + + + | Race | Unknown | + + + | Ethnic Group | Unknown | + + + Author + + + | Author | [facility] | | | and [place] | + + + | Organization | [facility] | | | and [...] [place] | | | | | [address] | | + + + + + | Vonnie Martinez | ECON | Unknown | | + + + + + Care Team Providers + +------+ + | Care Veneer Drier Name | Role | Phone | + +------+ + | Oscar Taylor PA-C | PCP | | + +------+ + Allergies + + + + + + | Active Allergy | Reactions | Severity | Noted | Comments | | | | | Date | | + + + + + + | Morphine And Related | Other (See Comments) | Medium | 03/19/20 | Per patient not | | | | | 17 | really sure. | + + + + + + | Quinine | Other (See Comments) | Medium | 08/17/19 | Patient doesn't | | | | | 13 | remember | + + + + + + | Tramadol | Other (See Comments) | Medium | 08/17/19 | Joint pain | | | | | 13 | | + + + + + + Medications + + + +---------+------+------+-------+ | Medication | Sig | Dispensed | Refills | Star | End | Statu | | | | | | t | Date | s | | | | | | Date | | | + + + +---------+------+------+-------+ | gabapentin | Take 600 mg by mouth | | 0 | | | Activ | | (NEURONTIN) 300 mg | 3 times daily. | | | | | e | | capsule | | | | | | | + + + +---------+------+------+-------+ | aspirin 81 mg EC | Take 81 mg by mouth | | 0 | | | Activ | | tablet | Daily. | | | | | e | + + + +---------+------+------+-------+ | carvedilol (COREG) | Take 25 mg by mouth | | 0 | | | Activ | | 25 mg tablet | 2 times daily (with | | | | | e | | | breakfast & dinner). | | | | | | + + + +---------+------+------+-------+ | lisinopril | Take 10 mg by mouth | | 0 | | | Activ | | (PRINIVIL, ZESTRIL) | Daily. | | | | | e | | 10 mg tablet | | | | | | | + + + +---------+------+------+-------+ | metformin | Take 1,000 mg by | | 0 | | | Activ | | (GLUCOPHAGE) 1000 MG | mouth 2 times daily | | | | | e | | tablet | (with breakfast & | | | | | | | | dinner). | | | | | | + + + +---------+------+------+-------+ | omeprazole | Take 20 mg by mouth | | 0 | | | Activ | | (PRILOSEC) 20 mg | every morning | | | | | e | | capsule | (before breakfast). | | | | | | + + + +---------+------+------+-------+ | albuterol | Inhale 2 puffs into | | 0 | | | Activ | | (VENTOLIN HFA) 90 | the lungs every 6 | | | | | e | | mcg/puff inhaler | hours as needed. | | | | | | + + + +---------+------+------+-------+ | insulin aspart | Inject under the | | 0 | | | Activ | | (NOVOLOG FLEXPEN) | skin. Take 15 units | | | | | e | | 100 units/mL | before each meal ( 3 | | | | | | | injection | times daily). Than | | | | | | | | take PRN | | | | | | + + + +---------+------+------+-------+ | insulin glargine | Inject 35 Units | | 0 | | | Activ | | (LANTUS) 100 | under the skin | | | | | e | | units/mL injection | nightly. | | | | | | + + + +---------+------+------+-------+ | albuterol 2.5 mg/3 | Take 2.5 mg by | | 0 | | | Activ | | mL nebulizer | nebulization every 6 | | | | | e | | solutionIndications: | hours as needed. | | | | | | | Chronic obstructive | | | | | | | | asthma (HCC) | | | | | | | + + + +---------+------+------+-------+ | | Take 1 tablet by | | 0 | | | Activ | | HYDROcodone-acetamin | mouth every 6 hours | | | | | e | | ophen (NORCO) 10-325 | as needed. | | | | | | | mg per tablet | | | | | | | + + + +---------+------+------+-------+ | beclomethasone | Inhale 2 puffs into | | 0 | | | Activ | | (QVAR) 40 mcg/puff | the lungs 2 times | | | | | e | | inhaler | daily. | | | | | | + + + +---------+------+------+-------+ | ALPRAZolam (XANAX | Take 1 mg by mouth | | 0 | 05/0 | | Activ | | XR) 1 mg 24 hr | nightly. | | | 20 | | e | | tablet | | | | 14 | | | + + + +---------+------+------+-------+ | furosemide (LASIX) | Take 20 mg by mouth | | 0 | 06/0 | | Activ | | 20 mg tablet | Daily. | | | 20 | | e | | | | | | 14 | | | + + + +---------+------+------+-------+ | NOVOLIN R RELION | | | 0 | 06/0 | | Activ | | 100 UNIT/ML | | | | 20 | | e | | injection | | | | 14 | | | + + + +---------+------+------+-------+ | RELION INSULIN | | | 0 | 06/0 | | Activ | | SYRINGE 1ML/31G 31G | | | | 20 | | e | | X 5/16" 1 ML MISC | | | | 14 | | | + + + +---------+------+------+-------+ | Respiratory | Res Med S9 auto CPAP | 1 each | 99 | 06/ | | Activ | | Therapy Supplies | 9-15 cm H2O. Heater | | | 01/07 | | e | | MISCIndications: CHEL | and Humidifier. All | | | 14 | | | | (obstructive sleep | necessary | | | | | | | apnea) | supplies.AHI 20.1. | | | | | | | | Diagnosis | | | | | | | | Code(s)327.23. | | | | | | | | Length of Need | | | | | | | | lifetime. Please | | | | | | | | send order to [facility] | | [facility] | | [facility] | | | | | | | [facility]. | | | | | | + + + +---------+------+------+-------+ | insulin regular | 50 Units 2 (two) | | 0 | 06/0 | | Activ | | (HUMULIN R, NOVOLIN | times daily. | | | 03/10 | | e | | R) 100 units/mL | | | | 14 | | | | injection | | | | | | | + + + +---------+------+------+-------+ | insulin aspart | Inject 15 Units into | | 0 | 04/2 | | Activ | | (NOVOLOG) 100 | the skin 3 (three) | | | 9/20 | | e | | units/mL injection | times daily before | | | 14 | | | | | meals. | | | | | | + + + +---------+------+------+-------+ | | Take 1 tablet by | | 0 | 08/2 | | Activ | | HYDROcodone-acetamin | mouth as needed. As | | | 20 | | e | | ophen (NORCO) 5-325 | needed for | | | 18 | | | | mg per tablet | breakthrough pain | | | | | | + + + +---------+------+------+-------+ | furosemide (LASIX) | 40 mg 2 (two) times | | 0 | 05/1 | | Activ | | 40 mg tablet | daily. | | | 01/07 | | e | | | | | | 17 | | | + + + +---------+------+------+-------+ | albuterol 90 | Inhale 2 puffs into | | 0 | | | Activ | | mcg/puff inhaler | the lungs every 4 | | | | | e | | | (four) hours as | | | | | | | | needed for Wheezing. | | | | | | + + + +---------+------+------+-------+ | traZODone | Take 100 mg by mouth | | 0 | 08/2 | | Activ | | (DESYREL) 100 mg | daily. | | | 4/20 | | e | | tablet | | | | 18 | | | + + + +---------+------+------+-------+ | tiZANidine | Take 4 mg by mouth 3 | | 0 | | | Activ | | (ZANAFLEX) 4 mg | (three) times | | | | | e | | tablet | daily. | | | | | | + + + +---------+------+------+-------+ | potassium chloride | Take 1 tablet by | | 0 | 12/0 | | Activ | | (KLOR-CON) 10 MEQ | mouth 2 (two) times | | | 6/20 | | e | | ER tablet | daily. | | | 17 | | | + + + +---------+------+------+-------+ | levothyroxine | 50 mcg. | | 0 | 05/1 | | Activ | | (SYNTHROID) 50 mcg | | | | 2/20 | | e | | tablet | | | | 17 | | | + + + +---------+------+------+-------+ | HYDROcodone | Take 1 tablet by | | 0 | 08/2 | | Activ | | (HYSINGLA ER) 40 mg | mouth daily. | | | 820 | | e | | ER abuse-deterrent | | | | 18 | | | | tablet | | | | | | | + + + +---------+------+------+-------+ | Glucose Blood | 1 each by Other | | 0 | 04/2 | | Activ | | (BLOOD GLUCOSE TEST | route 4 (four) times | | | 03/10 | | e | | STRIPS) STRP | daily. Use as | | | 14 | | | | | instructed | | | | | | + + + +---------+------+------+-------+ | | Inhale 1 puff into | | 0 | 08/0 | | Activ | | fluticasone-salmeter | the lungs 2 (two) | | | 03/10 | | e | | ol (ADVAIR DISKUS) | times daily. | | | 18 | | | | 250-50 mcg/puff | | | | | | | | diskus inhaler | | | | | | | + + + +---------+------+------+-------+ | ferrous sulfate | Take 1 tablet by | | 0 | 02/20 | | Activ | | 324 (65 Fe) MG EC | mouth 2 (two) times | | | 03/10 | | e | | tablet | daily with meals. | | | 17 | | | + + + +---------+------+------+-------+ | Blood Glucose | 1 each by Does not | | 0 | 2 | | Activ | | Monitoring Suppl | apply route daily. | | | 03/10 | | e | | (ACCU-CHEK MARII | | | | 14 | | | | PLUS) w/Device KIT | | | | | | | + + + +---------+------+------+-------+ | benzonatate | Take 100 mg by mouth | | 0 | | | Activ | | (TESSALON) 100 mg | 3 (three) times | | | | | e | | capsule | daily as needed for | | | | | | | | Cough. | | | | | | + + + +---------+------+------+-------+ | ascorbic acid | Take 500 mg by mouth | | 0 | | | Activ | | (VITAMIN C) 500 MG | daily. | | | | | e | | tablet | | | | | | | + + + +---------+------+------+-------+ | adalimumab (HUMIRA | INJECT 1 PEN SC Q | | 0 | 04/2 | | Activ | | PEN) 40 mg/0.4 mL | WEEK STARTING ON DAY | | | 09/07 | | e | | injection (pen) | 29. | | | 19 | | | + + + +---------+------+------+-------+ | amoxicillin | TK 1 C PO BID FOR 10 | | 0 | 09/2 | | Activ | | (AMOXIL) 500 MG | DAYS | | | 01/07 | | e | | capsule | | | | 18 | | | + + + +---------+------+------+-------+ | buprenorphine | APPLY 1 PATCH TO THE | | 0 | 07/0 | | Activ | | (BUTRANS) 7.5 mcg/hr | SKIN ONCE Q 7 DAYS | | | 2/20 | | e | | patch | FOR CHRONIC PAIN | | | 19 | | | + + + +---------+------+------+-------+ | cephalexin | TK 1 C PO BID FOR 10 | | 0 | 06/2 | | Activ | | (KEFLEX) 500 mg | DAYS | | | 1/20 | | e | | capsule | | | | 19 | | | + + + +---------+------+------+-------+ | cyclobenzaprine | TK 1 T PO BID | | 1 | 09/1 | | Activ | | (FLEXERIL) 10 mg | | | | 0/20 | | e | | tablet | | | | 18 | | | + + + +---------+------+------+-------+ | doxycycline | TK 1 C PO BID FOR 10 | | 0 | 10/1 | | Activ | | (MONODOX) 100 mg | DAYS | | | 8/20 | | e | | capsule | | | | 18 | | | + + + +---------+------+------+-------+ | DULoxetine | TK 1 C PO QD FOR 7 | | 0 | 02/2 | | Activ | | (CYMBALTA) [address] | DAYS THEN TK 2 CS PO | | | 2/20 | | e | | capsule | QD THEREAFTER | | | 19 | | | + + + +---------+------+------+-------+ | NOVOLIN N 100 | INJECT 55 UNITS | | 9 | 10/0 | | Activ | | UNIT/ML injection | UNDER THE SKIN IN | | | 5/20 | | e | | | THE MORNING AND 50 | | | 18 | | | | | UNITS IN THE EVENING | | | | | | + + + +---------+------+------+-------+ | B-D ULTRAFINE III | USE DIRECTED | | 11 | 12/2 | | Activ | | SHORT PEN 31G X 8 MM | SUBCUTANEOUSLY | | | 6/20 | | e | | | | | | 18 | | | + + + +---------+------+------+-------+ | | TK 3 ML QID PRN | | 11 | 02/1 | | Activ | | albuterol-ipratropiu | WHEEZING/SHORTNESS | | | 8/20 | | e | | m 2.5-0.5 mg/3 mL | OF BREATH | | | 19 | | | | SOLN | | | | | | | + + + +---------+------+------+-------+ | meloxicam (MOBIC) | TK 1 T PO QD | | 0 | 06/2 | | Activ | | 15 mg tablet | | | | 4/20 | | e | | | | | | 19 | | | + + + +---------+------+------+-------+ | NARCAN 4 MG/0.1ML | RANDAL REP ALN | | 0 | 04/2 | | Activ | | | | | | 4/20 | | e | | | | | | 19 | | | + + + +---------+------+------+-------+ | nystatin | APPLY TOPICALLY AA | | 0 | 12/2 | | Activ | | (MYCOSTATIN) [id number] | BID FOR 7-10 DAYS | | | 0/20 | | e | | UNIT/GM cream | | | | 18 | | | + + + +---------+------+------+-------+ | omeprazole | TK 1 C PO D | | 3 | 07/2 | | Activ | | (PRILOSEC) 40 MG | | | | 2/20 | | e | | capsule | | | | 19 | | | + + + +---------+------+------+-------+ | ondansetron | PLACE 1 T ON TONGUE | | 0 | 03/2 | | Activ | | (ZOFRAN ODT) 4 mg | AND ALLOW TO | | | 0/20 | | e | | disintegrating | DISSOLVE TID PRN NV | | | 19 | | | | tablet | | | | | | | + + + +---------+------+------+-------+ | predniSONE | | | 0 | 02/1 | | Activ | | (DELTASONE) 10 mg | | | | 9/20 | | e | | tablet | | | | 19 | | | + + + +---------+------+------+-------+ | WAL-PHED 30 MG | TK 1 T PO TID PRN | | 0 | 02/2 | | Activ | | tablet | CONGESTION | | | 6/20 | | e | | | | | | 19 | | | + + + +---------+------+------+-------+ | rOPINIRole | | | 0 | 07/0 | | Activ | | (REQUIP) 0.25 mg | | | | 3/20 | | e | | tablet | | | | 19 | | | + + + +---------+------+------+-------+ | carvedilol (COREG) | TK 1 T PO BID | | 10 | 05/1 | | Activ | | 6.25 mg tablet | | | | 3/20 | | e | | | | | | 19 | | | + + + +---------+------+------+-------+ | TORUTH LOCKHARTOSTAR | INJECT 90 UNITS | | 11 | 07/0 | | Activ | | 300 UNIT/ML | UNDER THE SKIN ONCE | | | 1/20 | | e | | concentrated | D | | | 19 | | | | injection (pen) | | | | | | | + + + +---------+------+------+-------+ | Insulin | UTD TO INJECT BID | | 11 | 07/1 | | Activ | | Syringe-Needle U-100 | WITH LEVEMIR AND QID | | | 0/20 | | e | | (INSULIN SYRINGE | WITH NOVOLOG | | | 19 | | | | .5CC/31GX5/16") 31G | | | | | | | | X 5/16" 0.5 ML MISC | | | | | | | + + + +---------+------+------+-------+ | metOLazone 2.5 mg | TK 1 T PO QD | | 11 | 05/2 | | Activ | | tablet | | | | 3/20 | | e | | | | | | 19 | | | + + + +---------+------+------+-------+ | allopurinol | TAKE 1 TABLET BY | 90 | 0 | 02/19 | | Activ | | (ZYLOPRIM) 100 mg | MOUTH EVERY DAY | tablet | | 2/20 | | e | | tablet | | | | 19 | | | + + + +---------+------+------+-------+ | atorvaSTATin | Take 1 tablet by | 60 | 0 | 02/20 | | Activ | | (LIPITOR) 40 mg | mouth nightly. | tablet | | 3/ | | e | | tablet | | | | 19 | | | + + + +---------+------+------+-------+ | gabapentin | Take 800 mg by mouth | | 0 | | 04/21 | Disco | | (NEURONTIN) 600 MG | 2 (two) times | | | | 2/20 | ntinu | | tablet | daily. | | | | 19 | ed | | | | | | | | (Dupl | | | | | | | | icate | | | | | | | | | | | | | | | | Entry | | | | | | | | ) | + + + +---------+------+------+-------+ | carvedilol (COREG) | Take 6.25 mg by | | 0 | | 04/21 | Disco | | 25 mg tablet | mouth 2 (two) times | | | | 2/20 | ntinu | | | daily with meals. | | | | 19 | ed | | | | | | | | (Dupl | | | | | | | | icate | | | | | | | | | | | | | | | | Entry | | | | | | | | ) | + + + +---------+------+------+-------+ | metOLazone 5 MG | Take 0.5 tablets by | | 0 | 110 | 04/21 | Disco | | tablet | mouth daily. | | | 01/07 | 220 | ntinu | | | | | | 18 | 19 | ed | | | | | | | | (Dupl | | | | | | | | icate | | | | | | | | | | | | | | | | Entry | | | | | | | | ) | + + + +---------+------+------+-------+ | magnesium chloride | Take 2 tablets by | | 0 | 110 | 110 | Expir | | (MAG64) 64 mg EC | mouth daily. | | | 01/07 | 01/07 | ed | | tablet | | | | 18 | 19 | | + + + +---------+------+------+-------+ | adalimumab (HUMIRA | | | 0 | 04/0 | 04/21 | Disco | | PEN-CD/UC/HS | | | | 4/20 | 2/20 | ntinu | | STARTER) 80 mg/0.8 | | | | 19 | 19 | ed | | mL injection | | | | | | (Dupl | | (starter package) | | | | | | icate | | | | | | | | | | | | | | | | Entry | | | | | | | | ) | + + + +---------+------+------+-------+ | gabapentin | TK 1 T PO TID | | 11 | 12/19 | 04/21 | Disco | | (NEURONTIN) 800 MG | | | | 11/07 | 220 | ntinu | | tablet | | | | 19 | 19 | ed | | | | | | | | (Side | | | | | | | | | | | | | | | | effec | | | | | | | | ts) | + + + +---------+------+------+-------+ | ondansetron | TK 1 T PO Q 8 H PRF | | 0 | 01/ | 04/21 | Disco | | (ZOFRAN) 8 MG tablet | NAUSEA | | | 12/08 | 2/20 | ntinu | | | | | | 19 | 19 | ed | | | | | | | | (Dupl | | | | | | | | icate | | | | | | | | | | | | | | | | Entry | | | | | | | | ) | + + + +---------+------+------+-------+ | traZODone | TK 1 T PO QHS | | 2 | | 04/21 | Disco | | (DESYREL) 50 mg | | | | 08/10 | 08/10 | ntinu | | tablet | | | | 19 | 19 | ed | | | | | | | | (Dupl | | | | | | | | icate | | | | | | | | | | | | | | | | Entry | | | | | | | | ) | + + + +---------+------+------+-------+ Active Problems + + + | Problem | Noted Date | + + + | Chronic kidney disease | 01/12/2019 | + + + + + | Overview: stage III (Diabetic Nephropathy) with Proteinuria | + + + + + | Morbid obesity with BMI of 50.0-59.9, adult | 01/12/2019 | + + + | Hidradenitis | 10/31/2018 | + + + | Iron deficiency anemia | 08/25/2017 | + + + | Abnormal weight gain | 05/26/2017 | + + + | Generalized edema | 05/26/2017 | + + + | Hyperuricemia | 05/26/2017 | + + + | Normochromic normocytic anemia | 03/19/2017 | + + + | Diabetic nephropathy associated with type 2 diabetes mellitus | 11/23/2016 | + + + | CKD (chronic kidney disease), stage III | 2013 | + + + | Depression | 2013 | + + + | Diabetic neuropathy | 2013 | + + + | Diabetic retinopathy | 2013 | + + + | Essential hypertension, benign | 2013 | + + + | Proteinuria | 2013 | + + + | Urinary incontinence | 2013 | + + + | Vitamin D deficiency | 2013 | + + + | COPD (chronic obstructive pulmonary disease) | 2013 | + + + + + | Overview: Asthma and Emphysema - Dr. Jessika Kruger | + + + + + | Chronic obstructive asthma | 09/08/2012 | + + + | Allergic rhinitis | 09/08/2012 | + + + | CHEL (obstructive sleep apnea) | 08/17/2012 | + + + | Peripheral neuropathy | 08/17/2012 | + + + | Hypertension | 08/17/2012 | + + + | Diabetes mellitus, type 2 | 08/17/2012 | + + + | RLS (restless legs syndrome) | 08/17/2012 | + + + | GERD (gastroesophageal reflux disease) | 08/17/2012 | + + + | Obesity | | + + + | Hepatitis C | | + + + Resolved Problems + + + + | Problem | Noted | Resolved | | | Date | Date | + + + + | Respiratory failure | 08/17/19 | | | | 13 | 4 | + + + + Encounters +--------+---------+ + + + | Date | Type | Specialty | Care Team | Description | +--------+---------+ + + + | 05/02/ | Office | Cardiology | Sabas Gaxiola, | Essential | | 2019 | Visit | | MD | hypertension | | | | | | (Primary Dx); Pedal | | | | | | edema; Stage 3 | | | | | | chronic kidney | | | | | | disease (HCC); | | | | | | Centrilobular | | | | | | emphysema (HCC); | | | | | | Type 2 diabetes | | | | | | mellitus without | | | | | | complication, with | | | | | | long-term current | | | | | | use of insulin | | | | | | (HCC); Chest | | | | | | pressure; | | | | | | Palpitations; | | | | | | Obstructive sleep | | | | | | apnea syndrome; | | | | | | Morbid obesity with | | | | | | BMI of 50.0-59.9, | | | | | | adult (HCC) | +--------+---------+ + + + | 03/17/ | Refill | Cardiology | Sabas Gaxiola, | Medication Refill | | 2018 | | | MD | | +--------+---------+ + + + | 03/15/ | Refill | Cardiology | Sabas Gaxiola, | Medication Refill | | 2018 | | | MD | | +--------+---------+ + + + | 03/13/ | Refill | Cardiology | Sabas Gaxiola, | Medication Refill | | 2018 | | | MD | | +--------+---------+ + + + | 03/02/ | Refill | Nephrology | Phan Jones, | Medication Refill | | 2019 | | | TAKE OFF WORKER | | +--------+---------+ + + + from Last 3 Months Immunizations + + + + | Name | Administration Dates | Next Due | + + + + | INFLUENZA PF 17 Y OR | 03/21/2013, 04/10/2012 | | | >,TRIVALENT | | | | RECOMBINANT | | | + + + + | PNEUMOCOCCAL | 08/11/2012 | | | POLYSACCHARIDE | | | | 23-VALENT (PPSV23) | | | + + + + Family History + + +------+ + | Medical History | Relation | Name | Comments | + + +------+ + | Cancer | Brother | | throat | + + +------+ + | Cancer | Brother | | thyroid CA | + + +------+ + | Thyroid disease | Daughter | | | + + +------+ + | Cancer | Father | | stomach cancer | + + +------+ + | Stomach cancer | Father | | | + + +------+ + | Heart attack | Maternal | | | | | Grandfath | | | | | er | | | + + +------+ + | Heart disease | Maternal | | | | | Grandfath | | | | | er | | | + + +------+ + | Heart attack | Maternal | | | | | Grandmoth | | | | | er | | | + + +------+ + | Heart disease | Maternal | | | | | Grandmoth | | | | | er | | | + + +------+ + | Alcohol abuse | Mother | | | + + +------+ + | Aneurysm | Mother | | | + + +------+ + | Asthma | Mother | | | + + +------+ + | COPD | Mother | | | + + +------+ + | Cirrhosis | Mother | | alcoholic cirrhosis | + + +------+ + | Hypertension | Mother | | | + + +------+ + | Other (see comment) | Mother | | brain aneurysm | + + +------+ + | Stroke | Mother | | multiple TIAs | + + +------+ + | Tobacco Use | Mother | | | + + +------+ + | Breast cancer | Sister | | | + + +------+ + | Breast cancer | Sister | | | + + +------+ + | Stroke | Sister | | | + + +------+ + | Hypertension | Sister | | | + + +------+ + | Cancer | Sister | | breast cancer | + + +------+ + | Cancer | Sister | | breast | + + +------+ + | Stroke | Sister | | TIA | + + +------+ + + +------+ + + | Relation | Name | Status | Comments | + +------+ + + | Brother | | Alive | | + +------+ + + | Brother | | Alive | | + +------+ + + | Brother | | | | + +------+ + + | Daughter | | Alive | | + +------+ + + | Daughter | | Alive | | + +------+ + + | Daughter | | Alive | | + +------+ + + | Daughter | | Alive | | + +------+ + + | Daughter | | Alive | | + +------+ + + | Daughter | | Alive | | + +------+ + + | Daughter | | | | + +------+ + + | Father | | | intestinal cancer | | | | (Age | | | | | 58) | | + +------+ + + | Maternal Grandfather | | | [place] | | | | (Age | | | | | 62) | | + +------+ + + | Maternal Grandmother | | | [place] | | | | (Age | | | | | 68) | | + +------+ + + | Mother | | | brain aneurysm | | | | (Age | | | | | 56) | | + +------+ + + | Sister | | | breast cancer | | | | (Age | | | | | 55) | | + +------+ + + | Sister | | Alive | | + +------+ + + | Sister | | | | + +------+ + + | Sister | | Alive | | + +------+ + + | Sister | | Alive | | + +------+ + + | Sister | | Alive | | + +------+ + + | Sister | | | | + +------+ + + | Sister | | | | + +------+ + + | Sister | | | | + +------+ + + Social History + +-------+ +--------+ [...] recent travel history available. | + + Last Filed Vital Signs + + + + + | Vital Sign | Reading | Time Taken | Comments | + + + + + | Blood Pressure | 120/70 | 05/02/2019 11:08 AM | | | | | PST | | + + + + + | Pulse | 61 | 05/02/2019 11:08 AM | | | | | PST | | + + + + + | Temperature | 37.4 C (99.3 F) | 12/29/2017 1:31 PM | | | | | PDT | | + + + + + | Respiratory Rate | - | - | | + + + + + | Oxygen Saturation | 94% | 05/02/2019 11:08 AM | | | | | PST | | + + + + + | Inhaled Oxygen | - | - | | | Concentration | | | | + + + + + | Weight | 147.9 kg (326 lb) | 05/02/2019 11:08 AM | | | | | PST | | + + + + + | Height | 162.6 cm (5' 4") | 05/02/2019 11:08 AM | | | | | PST | | + + + + + | Body Mass Index | 55.96 | 05/02/2019 11:08 AM | | | | | PST | | + + + + + Plan of Treatment +--------+ + + + + | Date | Type | Specialty | Care Team | Description | +--------+ + + + + | 05/25/ | Clinical | Cardiology | Minor [facility]as Lc, | | | 2018 | Support | | [address] | | | | | | [place] | | | | | | [place] [address] | | | | | | [phone] | | | | | | | | +--------+ + + + + | 06/12/ | Office | Cardiology | [facility] | | | 2018 | Visit | | [address] | | | | | | [address] | | | | | | [place] [id number] | | | | | | [phone] | | | | | | | | +--------+ + + + + + + + + + | Health Maintenance | Due Date | Last Done | Comments | + + + + + | Diabetic Eye Exam | | | | | | 2 | | | + + + + + | Diabetic Foot Exam | | | | | | 2 | | | + + + + + | Hemoglobin A1c | | | | | Screening | 2 | | | + + + + + | Vaccine: | | | | | Dtap/Tdap/Td (1 - | 3 | | | | Tdap) | | | | + + + + + | Cervical Cancer | | | | | Screening (Pap) | 4 | | | + + + + + | Colorectal Cancer | | | | | Screening | 4 | | | | (Colonoscopy) | | | | + + + + + | Vaccine: Zoster (1 | | | | | of 2) | 4 | | | + + + + + | Breast Cancer | | | | | Screening | 9 | | | + + + + + | Lung Cancer | | | | | Screening | 9 | | | + + + + + | Adult Annual | | | | | Wellness Visit | 9 | | | + + + + + | Vaccine: Influenza | | 03/21/2013, 04/10/2012 | | | (#1) | 9 | | | + + + + + | Vaccine: | Completed | 08/11/2012 | | | Pneumococcal 19-64 | | | | + + + + + | Hepatitis C | Completed | 10/16/2013 | | | Screening | | | | + + + + + Procedures + +--------+ + + + | Procedure Name | Priori | Date/Time | Associated Diagnosis | Comments | | | ty | | | | + +--------+ + + + | ECG 12 LEAD | Routin | 05/02/2019 | Essential | Results for this | | | e | 11:15 AM | hypertension | procedure are in the | | | | PST | | results section. | + +--------+ + + + from Last 3 Months Results ECG 12 lead (05/02/2019 11:15 AM PST) + + + + + + | Component | Value | Ref Range | Performed | Pathologist | | | | | At | Signature | + + + + + + | VENTRICULAR | 59 | BPM | [facility] | | | RATE EKG | | | | | + + + + + + | ATRIAL RATE | 163 | BPM | [facility] | | + + + + + + | QRS | 88 | ms | [facility] | | | DURATION | | | | | + + + + + + | Q-T | 454 | ms | [facility] | | | INTERVAL | | | | | + + + + + + | Q-T | 449 | ms | [facility] | | | INTERVAL | | | | | | (CORRECTED) | | | | | + + + + + + | P WAVE AXIS | 54 | degrees | [facility] | | + + + + + + | QRS AXIS | -9 | degrees | [facility] | | + + + + + + | T AXIS | 34 | degrees | [facility] | | + + + + + + | INTERPRETAT | Undetermined rhythmLow | | [facility] | | | ION TEXT | voltage QRSNonspecific | | | | | | ST abnormalityAbnormal | | | | | | ECGWhen compared with | | | | | | ECG of 20-MAY-2017 | | | | | | 13:52,Current | | | | | | undetermined rhythm | | | | | | precludes rhythm | | | | | | comparison, needs | | | | | | reviewPlease refer to | | | | | | Providers office visit | | | | | | note for Providers | | | | | | Interpretation.Confirmed | | | | | | by [facility] [place] Read [facility], | | | | | | [facility] ([id number]), | | | | | | commercial production editor Girish Rivera | | | | | | ([id number]) on 05/03/2019 | | | | | | 7:52:28 AM | | | | + + + + + + + + | Specimen | + + | | + + + + + | Narrative | Performed At | + + + | | | + + + + +---------+ + + | Performing | Address | City/State/Zipcode | Phone Number | | Organization | | | | + +---------+ + + | [facility] | | | | + +---------+ + + from Last 3 Months Insurance + +--------+ +--------+ +---------+--------+ | Payer | Benefi | Subscriber | Effect | Phone | Address | Type | | | t Plan | ID | mihaela | | | | | | / | | Dates | | | | | | Group | | | | | | + +--------+ +--------+ +---------+--------+ | MEDICARE | MEDICA | [id number] | 10/20/19 | [phone] | | Medica | | | RE | | 12-Pre | 5 | | re | | | PART A | | sent | | | | | | AND B | | | | | | + +--------+ +--------+ +---------+--------+ | MEDICARE | MEDICA | [id number] | 10/20/19 | [phone] | | Medica | | | RE | | 12-Pre | 5 | | re | | | PART A | | sent | | | | | | AND B | | | | | | + +--------+ +--------+ +---------+--------+ | AARP | AARP | [id number] | 06/21/19 | [phone] | | Indemn | | | MDCR | | 19-Pre | 0 | | ity | | | SUPPL | | sent | | | | + +--------+ +--------+ +---------+--------+ | AARP | AARP | [id number] | | [phone] | | Indemn | | | MDCR | | 013-Pr | 0 | | ity | | | SUPPL | | esent | | | | + +--------+ +--------+ +---------+--------+ + +--------+ +--------+ + + | Guarantor Name | Accoun | Relation to | Date | Phone | Billing Address | | | t Type | Patient | of | | | | | | | | | | + +--------+ +--------+ + + | Rebeca Watson | Person | Self [birth year] | | | | al/Fam | | 1954 | [phone] | [place] | | | maira | | | 9 (Home) | [address] | | | | | | [phone] | | | | | | | 8 (Work) | | + +--------+ +--------+ + + | Rebeca Watson | Person | Self | [birth year] | | | | al/Fam | | 1954 | [phone] | [place] | | | maira | | | 9 (Home) | [address] | | | | | | [phone] | | | | | | | 8 (Work) | | + +--------+ +--------+ + + Advance Directives + + + + + | Type | Date Recorded | Patient | Explanation | | | | Pulp Press Tender | | + + + + + | Power of | | | | | Machine Lacer | | | | + + + + + | Advance | | | | | Directive | | | | + + + + +
--- OUTSIDE RECORDS SUMMARY | ~2019-05-20 | XMS | Encounter Summary ---
Demographics + + + | Address | [address] | | | [place] [address] | + + + | Home Phone | | + + + | Preferred Language | Unknown | + + + | Marital Status | Legally | + + + | Amish Affiliation | Unknown | + + + | Race | Unknown | + + + | Ethnic Group | Unknown | + + + Author + + + | Author | [facility] | | | and [place] | + + + | Organization | [facility] | | [...] [place] | | | | | [address] | | + + + + + | Vonnie Martinez | ECON | Unknown | | + + + + + Care Team Providers + +------+ + | Care Basin Cleaner Name | Role | Phone | + +------+ + | Oscar Taylor PA-C | PCP | | + +------+ + Reason for Referral Diagnostic/Screening (Routine) + +--------+ + + + + | Status | Reason | Specialty | Diagnoses / | Referred By | Referred To | | | | | Procedures | Contact | Contact | + +--------+ + + + + | Authorized | | | Diagnoses | Minor, | [facility] | | | | | Essential | Sabas Platt, | [facility] | | | | | hypertension | MD [address] | | | | | [address] | [address] | [address] | | | | | diabetes | [place] | [place] | | | | | mellitus | [place], [place] | [address] | | | | | without | [address] | Phone: | | | | | complication | Phone: | [phone] | | | | | , with | [phone] | Fax: | | | | | long-term | Fax: | [phone] | | | | | current use | [phone] | | | | | | of insulin | | | | | | | ([facility]) Chest | | | | | | | pressure | | | | | | | Palpitations | | | | | | | Procedures | | | | | | | NM Nuclear | | | | | | | Stress Test | | | | | | | | | | | | | | (Vasodilator | | | | | | | ) | | | + +--------+ + + + + Reason for Visit + + + | Reason | Comments | + + + | Follow-up | annual/ med refills | + + + Encounter Details +--------+---------+ + + + | Date | Type | Department | Care Team | Description | +--------+---------+ + + + | 05/02/ | Office | [facility] | Sabas Gaxiola, | Essential | | 2019 | Visit | CARDIOLOGY [place] | [address] | hypertension | | | | [address] [facility] | [place], | (Primary Dx); Pedal | | | | [address] | [place] [address] | edema; Stage 3 | | | | [place], [place] | [phone] | chronic kidney | | | | [address] | | disease (HCC); | | | | [phone] | | Centrilobular | | | | [...] | | | | | | adult ([facility]) | +--------+---------+ + + + Social History [...] + + + documented in this encounter Progress Notes Sabas Gaxiola MD - 05/02/2019 11:20 AM PSTFormatting of this note might be different fro m the original. Subjective: Patient ID: Rebeca Watson is a 63 y.o. female. Patient's medications, allergies, past medical, surgical, social and family histories were obtained and reviewed as appropriate. HPI Mrs. Watson came to the office today for a follow up visit. I last saw her 03/15/18. She has had intermittent palpitations, which began about 2 weeks ago, describing episodes once or t wice per day, "like I'm anxious and my heart is racing", lasting 5-7 minutes. There is no o bvious trigger, but it tends to occur more in the evening. She has no associated symptoms w ith it. She has had "a cold", is taking "cough pills", doesn't recall the name and does not know if it has pseudoephedrine. She has also had intermittent episodes of mid RS "pressure ", radiating across her chest, subjectively rated "4-5" on a 1-10 scale in intensity, associ ated with walking even short distances, but also has it when she first lies down in bed, las ting 10-12 minutes, before it resolves with her on her CPAP for her CHEL. There is mild ass ociated SOB, no nausea or diaphoresis. With her diabetes morbid obesity, essential hyperte nsion, or smoking history, she certainly has risks for coronary artery disease, and will be scheduled for a 2-day protocol Lexiscan Cardiolite stress test at [facility]. A 48-hour Holter monitor will also be done to evaluate the symptoms. I saw her 05/20/17, for increasing pedal edema present intermittently for an undetermined time. She was a markedly poor historian. I was able to review records from her hospitalizat ion at [facility] August 04-2012, when she was admitted for acute respirator y failure, requiring BiPAP use, caused by malignant hypertension and acute pulmonary edema, along with positive cardiac enzymes due to a type II NSTEMI (demand ischemia). It was repor jimmie that this corrected fairly quickly. She has no chest pain, pressure or discomfort, palp itations, orthopnea or PND. 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 It appeared that her edema was most likely a side effect of her gabapentin, which she takes fo r her neuropathy, and she previously noted significant improvement, now that she has cut yudy n on the dose from 4 times daily to once daily, but is now on 600 mg TID with increased shai a. She is still on furosemide and Zaroxolyn. Her echo 08/13/17, which because of her large b quintin habitus and COPD, was ordered with Definity contrast, but it was not given "due to posit ioning". It was a technically difficult study, with overall hyperdynamic LV systolic functi on, what appeared to be normal RV size and function on limited views, and no evidence of any significant valvular abnormalities. With her diabetes she is on atorvastatin 40 mg daily, and had good results on a subsequent lipid panel with normal LFTs. ROS CONSTITUTIONAL: Morbid Obesity, 38 kg weight increase 2012 - 11/09/18 (when she reached her maximum weight of 151.77 kg), has lost 4.1 kg since then, denies recent fever, chills, nigh t sweats, but c/o significant Fatigue NEUROLOGIC: No history of CVA, TIA, migraines, seizures. Syncope (2013 in the setting of an asthma attack), with several other near syncopal Tussive syncopal events . She has Perip heral Diabetic Neuropathy with numbness, tingling, and painful, itchy paresthesias of her fe et and legs, h/o Benign Positional Vertigo with prior dizziness, lightheadedness (mostly tus sive). EYES: Diabetic Retinopathy. No amaurosis, diplopia, recent visual changes, cataracts or gl [place] ENT: No hearing loss, tinnitus, epistaxis, dysphagia ENDOCRINE: Insulin Requiring Type II Diabetes mellitus since 1999, complicated Retinopathy , Nephropathy and Neuropathy. Vitamin D Deficiency. Hypothyroidism, no other endocrine probl ems. No excessive hunger, thirst. PULMONARY/SLEEP: No dyspnea, orthopnea, paroxysmal nocturnal dyspnea. She has a history o f COPD, with Asthma, Emphysema. She has Obstructive Sleep Apnea, on CPAP and supplemental o xygen. She also has RLS. CARDIOVASCULAR: Denies chest pain, pressure or discomfort. She has a ? history of CAD, re ported cardiac ischemia 2012 in the setting of an "asthma attack", ? history of congestive heart failure. No history of cardiac arrhythmias. No palpitations. No history of a heart mu rmur, rheumatic fever. She has a history of Essential Hypertension since 2008, no h/o hyperl ipidemia. She has Pedal Edema, no claudication symptoms. No h/o an AAA. -- Echo (08/13/17): TDS, Definity ordered but not given, EF > 70%, RV appeared to be normal, no significant valvular abnormalities noted. -- Lipid Panel (12/21/17 - on atorvastatin 40 mg): TC-136, LDL-54, HDL-62, TG-150, normal LFT s GASTROINTESTINAL: Severe GERD. No recent abdominal pain, nausea, vomiting or diarrhea. De nies PUD, melena, hematochezia. She has Cirrhosis, Hepatitis C (treated with Harvoni 2015). RENAL/: Stage III CKD (diabetic nephropathy), baseline GFR 38, Cr 1.4. No dysuria, darrian turia, urinary urgency, hesitancy. No current medical staff credentialing coordinator disorders. HEMATOLOGY/ONCOLOGY: No h/o bleeding disorders, DVT, PE. She notes easy bruisability wit hout significant bleeding. No history of anemia, transfusions. No history of cancer. MUSCULOSKELETAL: No myalgias, Lumbosacral Radiculopathy, spinal Osteoarthritis, knee arthr algias. No history of rheumatologic or autoimmune diseases. CUTANEOUS: No rashes, pruritus, lesions. She has mild right pretibial erythema. PSYCHIATRIC: She admits to Depression, denies anxiety or other psychiatric problems. Past Medical History: Diagnosis Date Asthma Asthma Cardiac ischemia 08/04/2012 demand ischemia Chronic kidney disease stage III (Diabetic Nephropathy) with Proteinuria COPD (chronic obstructive pulmonary disease) ([facility]) Diabetes mellitus type II 1999 Insulin requiring, with Retinopathy, Nephropathy, Neuropathy GERD (gastroesophageal reflux disease) on omeprazole GERD (gastroesophageal reflux disease) H/O cardiac asthma pulmonary edema, acute from severe hypertension and demand ischemia Heart attack ([facility]) 2012 questionable Hepatitis C Hypertension 2009 Hypomagnesemia severe, resolved Localized edema Morbid obesity with BMI of 50.0-59.9, adult ([facility]) Obesity CHEL (obstructive sleep apnea) AHI 22.8 in 2005, Dr. Lima Peripheral neuropathy RLS (restless legs syndrome) on gabapentin and pain medication Sleep apnea Thyroid disease UTI (lower urinary tract infection) Vitamin D deficiency Past Surgical History: Procedure Laterality Date CHOLECYSTECTOMY CHOLECYSTECTOMY 2005 COLONOSCOPY CYST REMOVAL tailbone GALLBLADDER SURGERY HYSTERECTOMY 1983 ovaries intact, abnormal PAP smear PARTIAL HYSTERECTOMY ovaries in place PILONIDAL CYST EXCISION TONSILLECTOMY TONSILLECTOMY AND ADENOIDECTOMY Family History Problem Relation Age of Onset Other (see comment) Mother brain aneurysm Hypertension Mother Tobacco Use Mother Cirrhosis Mother alcoholic cirrhosis COPD Mother Asthma Mother Alcohol abuse Mother Aneurysm Mother Stroke Mother multiple TIAs Stomach cancer Father Cancer Father 50 stomach cancer Breast cancer Sister Breast cancer Sister Cancer Brother throat Stroke Sister Hypertension Sister Heart attack Maternal Grandmother Heart disease Maternal Grandmother Heart attack Maternal Grandfather Heart disease Maternal Grandfather Cancer Sister breast cancer Thyroid disease Daughter Cancer Sister breast Stroke Sister TIA Cancer Brother thyroid CA Social History Socioeconomic History Marital status: Legally Spouse name: Not on file Number of children: Not on file Years of education: Not on file Highest education level: Not on file Occupational History 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 Employer: [employer] Social Needs Financial resource strain: Not on file Food insecurity: Worry: Not on file Inability: Not on file Transportation needs: Medical: Not on file Non-medical: Not on file Tobacco Use Smoking status: Former Smoker Packs/day: 1.00 Years: 40.00 Pack years: 40.00 Last attempt to quit: 08/04/2012 Years since quittin.7 Smokeless tobacco: Never Used Substance and Sexual Activity Alcohol use: No Drug use: Yes Comment: Drug use: No Sexual activity: Not on file Lifestyle Physical activity: Days per week: Not on file Minutes per session: Not on file Stress: Not on file Relationships Social connections: Talks on phone: Not on file Gets together: Not on file Attends hoahaoism service: Not on file Active member of club or organization: Not on file Attends meetings of clubs or organizations: Not on file Relationship status: Not on file Intimate partner violence: Fear of current or ex partner: Not on file Emotionally abused: Not on file Physically abused: Not on file Forced sexual activity: Not on file Other Topics Concern Not on file Social History Narrative Lives in [place] with her grandchildren. She is from her . No known exposure to toxic chemicals or asbestos. No known exposure to tuberculosis. Has dogs at home. No other animal exposures. Allergies Allergen Reactions Morphine And Related Other (See Comments) Per patient not really sure. Quinine Other (See Comments) Patient doesn't remember Tramadol Other (See Comments) Joint pain Intolerance No active intolerances/contraindications Current Outpatient Medications Medication Sig Dispense Refill adalimumab (HUMIRA PEN) 40 mg/0.4 mL injection (pen) INJECT 1 PEN SC Q WEEK STARTING ON DAY 29. albuterol (VENTOLIN HFA) 90 mcg/puff inhaler Inhale 2 puffs into the lungs every 6 hour s as needed. albuterol 2.5 mg/3 mL nebulizer solution Take 2.5 mg by nebulization every 6 hours as n eeded. albuterol 90 mcg/puff inhaler Inhale 2 puffs into the lungs every 4 (four) hours as nee ded for Wheezing. albuterol-ipratropium 2.5-0.5 mg/3 mL SOLN TK 3 ML QID PRN WHEEZING/SHORTNESS OF BREATH 11 allopurinol (ZYLOPRIM) 100 mg tablet TAKE 1 TABLET BY MOUTH EVERY DAY 90 tablet 0 ALPRAZolam (XANAX XR) 1 mg 24 hr tablet Take 1 mg by mouth nightly. amoxicillin (AMOXIL) 500 MG capsule TK 1 C PO BID FOR 10 DAYS 0 ascorbic acid (VITAMIN C) 500 MG tablet Take 500 mg by mouth daily. aspirin 81 mg EC tablet Take 81 mg by mouth Daily. atorvaSTATin (LIPITOR) 40 mg tablet Take 1 tablet by mouth nightly. 60 tablet 0 B-D ULTRAFINE III SHORT PEN 31G X 8 MM USE DIRECTED SUBCUTANEOUSLY 11 beclomethasone (QVAR) 40 mcg/puff inhaler Inhale 2 puffs into the lungs 2 times daily. benzonatate (TESSALON) 100 mg capsule Take 100 mg by mouth 3 (three) times daily as nee ded for Cough. Blood Glucose Monitoring Suppl (ACCU-CHEK MARII PLUS) w/Device KIT 1 each by Does not a pply route daily. buprenorphine (BUTRANS) 7.5 mcg/hr patch APPLY 1 PATCH TO THE SKIN ONCE Q 7 DAYS FOR CH RONIC PAIN 0 carvedilol (COREG) 25 mg tablet Take 25 mg by mouth 2 times daily (with breakfast & din ner). carvedilol (COREG) 6.25 mg tablet TK 1 T PO BID 10 cephalexin (KEFLEX) 500 mg capsule TK 1 C PO BID FOR 10 DAYS 0 cyclobenzaprine (FLEXERIL) 10 mg tablet TK 1 T PO BID 1 doxycycline (MONODOX) 100 mg capsule TK 1 C PO BID FOR 10 DAYS 0 DULoxetine (CYMBALTA) [address] capsule TK 1 C PO QD FOR 7 DAYS THEN TK 2 CS PO QD THERE AFTER 0 ferrous sulfate 324 (65 Fe) MG EC tablet Take 1 tablet by mouth 2 (two) times daily wit h meals. fluticasone-salmeterol (ADVAIR DISKUS) 250-50 mcg/puff diskus inhaler Inhale 1 puff int o the lungs 2 (two) times daily. furosemide (LASIX) 20 mg tablet Take 20 mg by mouth Daily. furosemide (LASIX) 40 mg tablet 40 mg 2 (two) times daily. gabapentin (NEURONTIN) 300 mg capsule Take 600 mg by mouth 3 times daily. Glucose Blood (BLOOD GLUCOSE TEST STRIPS) STRP 1 each by Other route 4 (four) times ulysses ly. Use as instructed HYDROcodone (HYSINGLA ER) 40 mg ER abuse-deterrent tablet Take 1 tablet by mouth daily. HYDROcodone-acetaminophen (NORCO) 10-325 mg per tablet Take 1 tablet by mouth every 6 h ours as needed. HYDROcodone-acetaminophen (NORCO) 5-325 mg per tablet Take 1 tablet by mouth as needed. As needed for breakthrough pain insulin aspart (NOVOLOG FLEXPEN) 100 units/mL injection Inject under the skin. Take 15 units before each meal ( 3 times daily). Than take PRN insulin aspart (NOVOLOG) 100 units/mL injection Inject 15 Units into the skin 3 (three) times daily before meals. insulin glargine (LANTUS) 100 units/mL injection Inject 35 Units under the skin nightly . insulin regular (HUMULIN R, NOVOLIN R) 100 units/mL injection 50 Units 2 (two) times da maira. Insulin Syringe-Needle U-100 (INSULIN SYRINGE .5CC/31GX5/16") 31G X 5/16" 0.5 ML MISC U TD TO INJECT BID WITH LEVEMIR AND QID WITH NOVOLOG 11 levothyroxine (SYNTHROID) 50 mcg tablet 50 mcg. lisinopril (PRINIVIL, ZESTRIL) 10 mg tablet Take 10 mg by mouth Daily. meloxicam (MOBIC) 15 mg tablet TK 1 T PO QD 0 metformin (GLUCOPHAGE) 1000 MG tablet Take 1,000 mg by mouth 2 times daily (with breakf ast & dinner). metOLazone 2.5 mg tablet TK 1 T PO QD 11 NARCAN 4 MG/0.1ML RANDAL REP ALN 0 NOVOLIN N 100 UNIT/ML injection INJECT 55 UNITS UNDER THE SKIN IN THE MORNING AND 50 UN ITS IN THE EVENING 9 NOVOLIN R RELION 100 UNIT/ML injection nystatin (MYCOSTATIN) 392109 UNIT/GM cream APPLY TOPICALLY AA BID FOR 7-10 DAYS 0 omeprazole (PRILOSEC) 20 mg capsule Take 20 mg by mouth every morning (before breakfast ). omeprazole (PRILOSEC) 40 MG capsule TK 1 C PO D 3 ondansetron (ZOFRAN ODT) [address] 1 T ON TONGUE AND ALLOW TO DI SSOLVE TID PRN NV 0 potassium chloride (KLOR-CON) 10 MEQ ER tablet Take 1 tablet by mouth 2 (two) times ulysses ly. predniSONE (DELTASONE) 10 mg tablet 0 RELION INSULIN SYRINGE 1ML/31G 31G X 5/16" 1 ML MISC Respiratory Therapy Supplies [facility] S9 auto CPAP 9-15 cm H2O. Heater and Humidifi er. All necessary supplies.AHI 20.1. Diagnosis Code(s)327.23. Length of Need lifetime. Gian wall send order to [facility] [place]. 1 each 99 rOPINIRole (REQUIP) 0.25 mg tablet 0 tiZANidine (ZANAFLEX) 4 mg tablet Take 4 mg by mouth 3 (three) times daily. TOUJEO SOLOSTAR 300 UNIT/ML concentrated injection (pen) INJECT 90 UNITS UNDER THE SKIN ONCE D 11 traZODone (DESYREL) 100 mg tablet Take 100 mg by mouth daily. WAL-PHED 30 MG tablet TK 1 T PO TID PRN CONGESTION 0 No current facility-administered medications for this visit. Objective: BP 120/70 | Pulse 61 | Ht 1.626 m (5' 4") | Wt (!) 147.9 kg (326 lb) | SpO2 94% | BMI 55.96 kg/m PHYSICAL EXAM GENERAL: Morbidly obese middle-aged woman, Well developed, well nourished, in no distress. Appears approximately stated age. HEENT: Normocephalic, atraumatic. EYES: PERRL, sclerae anicteric, no xanthelsasmas MOUTH: Oral mucosae moist, dentition adequate, no lesions noted NECK: No JVD, lymphadenopathy, thyromegaly, bruits. Carotid pulses are 2+ bilaterally LUNGS: Diffusely decreased breath sounds bilaterally, with no rales, rhonchi or wheezing n oted, respirations unlabored HEART: Nonpalpable PMI, regular rate and rhythm, S1, S2 are diminished. No murmurs, rubs or gallops noted. ABDOMEN: Massively obese. Soft, nontender, no obvious organomegaly, masses or bruits. Clint wel sounds are normal in all 4 quadrants. The abdominal aortic pulsation is not palpable. EXTREMITIES: 1-2+ pitting ankle edema 1/3 way to the knees bilaterally. Radial pulses 2+ b ilaterally. Femoral pulses are nonpalpable bilaterally, without bruits. DP and PT pulses a re 2+ bilaterally. SKIN: Warm and dry, capillary refill is normal, minimal right pretibial erythema, no other skin lesions. NEUROLOGIC: Awake, alert and oriented x 3. No focal motor deficits. PSYCHIATRIC: Appropriate, affect appears normal EKG (personally reviewed today): Normal sinus rhythm, baseline artifact, rSr' in V1-V2 may represent a right ventricular conduction delay, otherwise normal EKG, no significant changes noted compared to the previous tracings of 12/13/18 and 05/20/2017 Assessment: Rebeca was seen today for follow-up. Diagnoses and all orders for this visit: Essential hypertension - ECG 12 lead - NM Nuclear Stress Test (Vasodilator); Future Pedal edema Stage 3 chronic kidney disease (HCC) Centrilobular emphysema (HCC) Type 2 diabetes mellitus without complication, with long-term current use of insulin (HCC) - NM Nuclear Stress Test (Vasodilator); Future Chest pressure - NM Nuclear Stress Test (Vasodilator); Future Palpitations - Holter monitor - 48 hour; Future - NM Nuclear Stress Test (Vasodilator); Future Obstructive sleep apnea syndrome Morbid obesity with BMI of 50.0-59.9, adult (HCC) Plan: Follow up after the above tests documented in this en counter Plan of Treatment +--------+ + + + + | Date | Type | Specialty | Care Team | Description | +--------+ + + + + | 05/25/ | Clinical | Cardiology | Sabas Gaxiola, | | | 2018 | Support | | MD [address] | | | | | | [place], | | | | | | [place] [address] | | | | | | [phone] | | | | | | | | +--------+ + + + + | 12/23/ | Office | Cardiology | [facility] [place] | | | 2019 | Visit | | [address] | | | | | | [address] | | | | | | [place] [address] | | | | | | [phone] | | | | | | | | +--------+ + + + + + + +--------+ + + | Name | Type | Priori | Associated Diagnoses | Order Schedule | | | | ty | | | + + +--------+ + + | Holter monitor - 48 | ECG | Routin | Palpitations | Expected: | | hour | | e | | 05/09/2019, Expires: | | | | | | 05/02/2020 | + + +--------+ + + | NM Nuclear Stress | Cardiac | Routin | Essential | Expected: | | Test (Vasodilator) | Nuclear | e | hypertension Type 2 | 05/09/2019, Expires: | | | Medicine | | diabetes mellitus | 05/02/2020 | | | | | without | | | | | | complication, with | | | | | | long-term current | | | | | | use of insulin (HCC) | | | | | | Chest pressure | | | | | | Palpitations | | + + +--------+ + + documented [...] + + documented in this encounter Results ECG 12 lead (05/02/2019 11:15 AM [...] | | | | | by [facility] Read Only, | | | | | | [facility] ([id number]), | | | | | | senior technical editor Girish Rivera | | | | [...] + documented in this encounter Visit Diagnoses + + | Diagnosis | + + | Essential hypertension - Primary Unspecified essential hypertension | + + | Pedal edema Edema | + + | Stage 3 chronic kidney disease (HCC) | + + | Centrilobular emphysema (HCC) | + + | Type 2 diabetes mellitus without complication, with long-term current use of insulin | | (HCC) | + + | Chest pressure Other chest pain | + + | Palpitations | + + | Obstructive sleep apnea syndrome Obstructive sleep apnea (adult) (pediatric) | + + | Morbid obesity with BMI of 50.0-59.9, adult (HCC) | + + documented in this encounter
--- OUTSIDE RECORDS SUMMARY | ~2019-05-20 | XMS | Encounter Summary ---
Demographics + + + | Address | [address] | | | [place] [address] | + + + | Home Phone | | + + + | Preferred Language | Unknown | + + + | Marital Status | Legally | + + + | Druze Affiliation | Unknown | + + + | Race | Unknown | + + + | Ethnic Group | Unknown | + + + Author + + + | Author | [facility] | | | and [place] | + + + | Organization | [facility] | | [...] [place] | | | | | [address] | | + + + + + | Vonnie Martinez | ECON | Unknown | | + + + + + Care Team Providers + +------+ + | Care Clinical Cytogeneticist Scientist Name | Role | Phone | + +------+ + | Oscar Taylor PA-C | PCP | | + +------+ + Encounter Details +--------+ + + + + | Date | Type | Department | Care Team | Description | +--------+ + + + + | 01/12/ | Orders Only | [facility] | Provider, | Chronic kidney | | 2019 | | SYSTEM GENERIC OP | MD [address] | disease, stage III | | | | CONVERSION [address] | [address] | (moderate) (HCC); | | | | [address] [place], [place] | [place] [address] | Essential (primary) | | | | [address] | | hypertension; | | | | [phone] | | Generalized edema; | | | [...] [place], | | | | | | [place] [address] | | | | | | [phone] | | | | | | | | +--------+ + + + + | 06/12/ | Office | Cardiology | [facility] | | | 2019 | Visit | | [address] | | | | | | [address] | | | | | | [place] [address] | | | | | | [phone] | | | | | | | [...] Expires: | | | | | (moderate) ([facility]) | 04/27/2020 | | | | | Essential (primary) | | | | | | hypertension | | | | | | Generalized edema | | | | | | Proteinuria | | + +------+--------+ + + documented as of this encounter Visit Diagnoses + + | Diagnosis | + + | Chronic kidney disease, stage III (moderate) ([facility]) Chronic kidney disease, Stage III | | (moderate) | + + | Essential (primary) hypertension Unspecified essential hypertension | + + | Generalized edema Edema | + + | Proteinuria | + + documented in this encounter"
--- OUTSIDE RECORDS SUMMARY | ~2019-05-20 | XMS | Encounter Summary ---
Demographics + + + | Address | [address] | | | [place] [address] | + + + | Home Phone | | + + + | Preferred Language | Unknown | + + + | Marital Status | Legally | + + + | Christianity Affiliation | Unknown | + + + | Race | Unknown | + + + | Ethnic Group | Unknown | + + + Author + + + | Author | [facility] | | | and [place] | + + + | Organization | [facility] | | | [...] [place] | | | | | [address] | | + + + + + | Vonnie Martinez | ECON | Unknown | | + + + + + Care Team Providers + +------+ + | Care Motorbike Courier Name | Role | Phone | + [...] Description | +--------+--------+ + + + | 03/13/ | Refill | [facility] | Sabas Gaxiola, | Medication Refill | | 2019 | | CARDIOLOGY MISSY | [address] | | | | | [address] | [facility], | | | | | [place], [place] | [place] [address] | | | | | [address] | [phone] | | | | | [phone] | | | +--------+--------+ + + + [...] | | | | | | [place] [address] | | | | | | [phone] | | | | | | | | +--------+ + + + + | 06/12/ | Office | Cardiology | [facility] [place] | | | 2018 | Visit | | [address] | | | | | | [address] | | | | | | [place] [address] | | | | | | [phone] | | | | | | | | +--------+ + + + + documented as of this encounter Visit Diagnoses Not on filedocumented in this encounter"
--- OUTSIDE RECORDS SUMMARY | ~2019-05-20 | XMS | Encounter Summary ---
Demographics + + + | Address | [address] | | | [place] [address] | + + + | Home Phone | | + + + | Preferred Language | Unknown | + + + | Marital Status | Legally | + + + | Holiness Affiliation | Unknown | + + + | Race | Unknown | + + + | Ethnic Group | Unknown | + + + Author + + + | Author | [facility] | | | and [place] | + + + | Organization | [facility] | | | [...] [place] | | | | | [address] | | + + + + + | Vonnie Martinez | ECON | Unknown | | + + + + + Care Team Providers + +------+ + | Care Engine Boss Name | Role | Phone | + +------+ + | Oscar Taylor PA-C | PCP | | + +------+ + Encounter Details +--------+ + + + + | Date | Type | Department | Care Team | Description | +--------+ + + + + | 10/14/ | Orders Only | [facility] | AliaGarret dorado | | | 2017 | | [address] | [facility] [address] | | [address] | [place], | | | | | [place] | [address] [place], | | | | | [address] | [place] [address] | | | | | [phone] | [phone] | | | | | | | [...] | | | | | | [place] [address] | | | | | | [phone] | | | | | | | | +--------+ + + + + | 06/12/ | Office | Cardiology | [facility] | | | 2019 | Visit | | [address] | | | | | | [address] | | | | | | [place] [address] | | | | | | [phone] | | | | | | | | +--------+ + + + + documented as of this encounter Procedures + +--------+ + + + | Procedure Name | Priori | Date/Time | Associated Diagnosis | Comments | | | ty | | | | + +--------+ + + + | ECHO INTERPRETATION | Routin | 10/14/2016 | | Results for this | | OF OUTSIDE FILMS | e | 3:01 PM | | procedure are in the | | | | PDT | | results section. | + +--------+ + + + documented in this encounter Results ECHO Interpretation of Outside Films (10/14/2016 3:01 PM PDT) + + | Specimen | + + | | + + + + + | Impressions | Performed At | + + + | 1. This was a technically difficult study with suboptimal views. | | | Definity contrast agent was used to better delineate the left | | | ventricular wall segments. 2. Overall left ventricular systolic | | | function is normal with, an EF between 65 - 70 %. 3. The diastolic | | | filling pattern indicates impaired relaxation consistent with mild | | | dysfunction (Grade I). 5. No significant valvular abnormalities noted, | | | although valvular structures were not well visualized. | | + + + + + + | Narrative | Performed At | + + + | Patient Name: Rebeca Watson Date of : 1955 | | | Performing Physician: Sabas Gaxiola | | | | | | INDICATIONS CAD, HTN CONCLUSIONS 1. | | | This was a technically difficult study with suboptimal views. | | | Definity contrast agent was used to better delineate the left | | | ventricular wall segments. 2. Overall left ventricular systolic | | | function is normal with, an EF between 65 - 70 %. 3. The diastolic | | | filling pattern indicates impaired relaxation consistent with mild | | | dysfunction (Grade I). 5. No significant valvular abnormalities noted, | | | although valvular structures were not well visualized. FINDINGS | | | -------- ECG rhythm: Sinus rhythm. Study: A 2-dimensional | | | transthoracic echocardiogram with m-mode, spectral and color flow | | | Doppler was perfomed at [facility]. Study: Definity | | | contrast agent was used to better delineate the left ventricular wall | | | segments. Study: This was a technically difficult study with | | | suboptimal views. Left Ventricle: Overall left ventricular systolic | | | function is normal with, an EF between 65 - 70 %. Left Ventricle: The | | | left ventricle cavity size is normal. Left Ventricle: Left | | | ventricular wall thickness is normal. Left Ventricle: No regional | | | wall motion abnormalities. Left Ventricle: The diastolic filling | | | pattern indicates impaired relaxation consistent with mild dysfunction | | | (Grade I). Right Ventricle: The right ventricle is normal in size. | | | Right Ventricle: The RV was not well visualized. RV systolic | | | function could not be assessed. Left Atrium: Grossly normal in size. | | | Right Atrium: The right atrium was not well visualized. Aortic | | | Valve: The aortic valve was not well visualized, but on limited views, | | | appears to be Aortic Valve: trileaflet and appears structurally | | | normal. Aortic Valve: There is no evidence of aortic regurgitation. | | | Aortic Valve: There is no evidence of aortic stenosis. Mitral Valve: | | | The mitral valve was not well visualized. Mitral Valve: No mitral | | | regurgitation. Tricuspid Valve: The tricuspid valve was not well | | | visualized. Tricuspid Valve: The poor TR signal prevents accurate | | | estimation of pulmonary pressures. Pulmonic Valve: The pulmonic valve | | | was not well visualized. Pericardium: There is no pericardial | | | effusion. Pericardium: Anterior echo free space present. IVC/Hepatic | | | Veins: The IVC was not well visualized. Aorta: Not well visualized. | | | Mass: No mass visualized Thrombus: No clot visualized Thrombus: No | | | vegetation visualized. Septum: No ASD observed. Septum: No VSD | | | observed. Contrast: Poor visualization. Definity was used to opacify | | | the left ventricular chamber and improve delineation of the | | | endocardial border. MEASUREMENTS Ao Diam: 2.88 | | | cm LA Diam: 3.13 cm LA Major: 4.75 cm EDV(Teich): 97.02 ml | | | IVSd: 1.11 cm LVIDd: 4.59 cm LVPWd: 1.05 cm LVOT Area: | | | 3.85 cm2 LVOT Diam: 2.21 cm %FS: 30.62 % EF(Teich): | | | 58.20 % ESV(Teich): 40.55 ml LVIDs: 3.18 cm SV(Teich): | | | 56.47 ml RA Major: 4.59 cm RV Major: 6.00 cm RVIDd: 2.39 | | | cm LVEF MOD A2C: 63.73 % SV MOD A2C: 62.04 ml LVEF MOD A4C: | | | 70.67 % SV MOD A4C: 77.24 ml EF Biplane: 68.81 % LVEDV MOD | | | BP: 113.60 ml LVESV MOD BP: 35.42 ml LVEDV MOD A2C: 97.33 | | | ml LVLd A2C: 7.93 cm LVEDV MOD A4C: 109.28 ml LVLd A4C: | | | 8.23 cm LVESV MOD A2C: 35.29 ml LVLs A2C: 6.68 cm LVESV MOD | | | A4C: 32.04 ml LVLs A4C: 6.38 cm LAAs A4C: 16.81 cm2 LAESV | | | A-L A4C: 50.38 ml LALs A4C: 4.76 cm RAAs: 13.17 cm2 RAESV | | | A-L: 33.85 ml RAESV MOD: 31.37 ml RALs: 4.35 cm AV maxPG: | | | 12.73 mmHg AV meanP.53 mmHg AV Vmax: 1.78 m/s AV | | | Vmean: 1.06 m/s AV VTI: 25.77 cm ANTHONY Vmax: 2.77 cm2 ANTHONY | | | (VTI): 2.88 cm2 AVAI Vmax: 0.00 cm2/m2 AVAI (VTI): 0.00 | | | cm2/m2 LVOT maxP.59 mmHg LVOT meanP.01 mmHg LVSI | | | Dopp: 31.91 ml/m2 LVSV Dopp: 74.36 ml LVOT Vmax: 1.28 m/s | | | LVOT Vmean: 0.79 m/s LVOT VTI: 19.28 cm MV A Robles: 0.95 m/s | | | MV DecT: 194.50 ms MV E Robles: 0.72 m/s MV E/A Ratio: 0.77 | | | MV PHT: 56.40 ms MVA By PHT: 3.90 cm2 Septal e': 0.07 m/s | | | Septal E/e': 9.08 Lateral e': 0.04 m/s Lateral E/e': 15.47 | | | Dryer Operator: [id number] Authenticated by: Sabas Gaxiola Report | | | Date/Time: 10-15-2016 18:23:05 | | + + + + + | Procedure Note | + + | Atif, Rad Conversion - 02/09/2019 7:00 PM PDT Patient Name: Darek Watson of | | : 1955 Performing Physician: Sabas Monique | | [facility] INDICATIONS | | -CAD, HTN CONCLUSIONS 1. This was a technically difficult study with | | suboptimal views. Definity contrast agent was used to better delineate the left | | ventricular wall segments.2. Overall left ventricular systolic function is normal with, | | an EF between 65 - 70 %.3. The diastolic filling pattern indicates impaired relaxation | | consistent with mild dysfunction (Grade I). 5. No significant valvular abnormalities | | noted, although valvular structures were not well visualized. FINDINGS--------ECG | | rhythm: Sinus rhythm.Study: A 2-dimensional transthoracic echocardiogram with m-mode, | | spectral and color flow Doppler was perfomed at [facility].Study: Definity | | contrast agent was used to better delineate the left ventricular wall segments.Study: | | This was a technically difficult study with suboptimal views.Left Ventricle: Overall | | left ventricular systolic function is normal with, an EF between 65 - 70 %.Left | | Ventricle: The left ventricle cavity size is normal.Left Ventricle: Left ventricular | | wall thickness is normal.Left Ventricle: No regional wall motion abnormalities.Left | | Ventricle: The diastolic filling pattern indicates impaired relaxation consistent with | | mild dysfunction (Grade I).Right Ventricle: The right ventricle is normal in size.Right | | Ventricle: The RV was not well visualized. RV systolic function could not be | | assessed.Left Atrium: Grossly normal in size.Right Atrium: The right atrium was not well | | visualized.Aortic Valve: The aortic valve was not well visualized, but on limited | | views, appears to beAortic Valve: trileaflet and appears structurally normal.Aortic | | Valve: There is no evidence of aortic regurgitation.Aortic Valve: There is no evidence | | of aortic stenosis.Mitral Valve: The mitral valve was not well visualized.Mitral Valve: | | No mitral regurgitation.Tricuspid Valve: The tricuspid valve was not well | | visualized.Tricuspid Valve: The poor TR signal prevents accurate estimation of pulmonary | | pressures.Pulmonic Valve: The pulmonic valve was not well visualized.Pericardium: There | | is no pericardial effusion.Pericardium: Anterior echo free space present.IVC/Hepatic | | Veins: The IVC was not well visualized.Aorta: Not well visualized.Mass: No mass | | visualizedThrombus: No clot visualizedThrombus: No vegetation visualized.Septum: No ASD | | observed.Septum: No VSD observed.Contrast: Poor visualization. Definity was used to | | opacify the left ventricular chamber and improve delineation of the endocardial border. | | MEASUREMENTS Ao Diam: 2.88 cmLA Diam: 3.13 cmLA Major: 4.75 | | cmEDV(Teich): 97.02 mlIVSd: 1.11 cmLVIDd: 4.59 cmLVPWd: 1.05 cmLVOT Area: 3.85 | | [id number] Diam: 2.21 cm%FS: 30.62 %EF(Teich): 58.20 %ESV(Teich): 40.55 mlLVIDs: | | 3.18 cmSV(Teich): 56.47 mlRA Major: 4.59 cmRV Major: 6.00 cmRVIDd: 2.39 cmLVEF | | MOD A2C: 63.73 %SV MOD A2C: 62.04 mlLVEF MOD A4C: 70.67 %SV MOD A4C: 77.24 mlEF | | Biplane: 68.81 %LVEDV MOD BP: 113.60 mlLVESV MOD BP: 35.42 mlLVEDV MOD A2C: | | 97.33 mlLVLd A2C: 7.93 cmLVEDV MOD A4C: 109.28 mlLVLd A4C: 8.23 cmLVESV MOD A2C: | | 35.29 mlLVLs A2C: 6.68 cmLVESV MOD A4C: 32.04 mlLVLs A4C: 6.38 cmLAAs A4C: | | 16.81 [id number] A-L A4C: 50.38 mlLALs A4C: 4.76 cmRAAs: 13.17 [id number] A-L: 33.85 | | mlRAESV MOD: 31.37 mlRALs: 4.35 cmAV maxP.73 mmHgAV meanP.53 mmHgAV | | Vmax: 1.78 m/Arianna Vmean: 1.06 m/Arianna VTI: 25.77 cmAVA Vmax: 2.77 cm2AVA (VTI): | | 2.88 [id number] Vmax: 0.00 cm2/m2AVAI (VTI): 0.00 cm2/m2LVOT maxP.59 mmHgLVOT | | meanP.01 mmHgLVSI Dopp: 31.91 ml/m2LVSV Dopp: 74.36 mlLVOT Vmax: 1.28 | | m/sLVOT Vmean: 0.79 m/sLVOT VTI: 19.28 cmMV A Robles: 0.95 m/sMV DecT: 194.50 msMV | | E Robles: 0.72 m/sMV E/A Ratio: 0.77MV PHT: 56.40 msMVA By PHT: 3.90 pp2Iqthxc e': | | 0.07 m/sSeptal E/e': 9.08Lateral e': 0.04 m/sLateral E/e': 15.47 Dryer Operator: | | DHAuthenticated by: Sabas Vila Date/Time: 10-15-2016 18:23:05 IMPRESSION: 1. | | This was a technically difficult study with suboptimal views. Definity contrast agent | | was used to better delineate the left ventricular wall segments.2. Overall left | | ventricular systolic function is normal with, an EF between 65 - 70 %.3. The diastolic | | filling pattern indicates impaired relaxation consistent with mild dysfunction (Grade | | I). 5. No significant valvular abnormalities noted, although valvular structures were | | not well visualized. | |Ao Diam: 2.88 cm | |LA Diam: 3.13 cm | |LA Major: 4.75 cm | |EDV(Teich): 97.02 ml | |IVSd: 1.11 cm | |LVIDd: 4.59 cm | |LVPWd: 1.05 cm | |LVOT Area: 3.85 cm2 | |LVOT Diam: 2.21 cm | |%FS: 30.62 % | |EF(Teich): 58.20 % | |ESV(Teich): 40.55 ml | |LVIDs: 3.18 cm | |SV(Teich): 56.47 ml | |RA Major: 4.59 cm | |RV Major: 6.00 cm | |RVIDd: 2.39 cm | |LVEF MOD A2C: 63.73 % | |SV MOD A2C: 62.04 ml | |LVEF MOD A4C: 70.67 % | |SV MOD A4C: 77.24 ml | |EF Biplane: 68.81 % | |LVEDV MOD BP: 113.60 ml | |LVESV MOD BP: 35.42 ml | |LVEDV MOD A2C: 97.33 ml | |LVLd A2C: 7.93 cm | |LVEDV MOD A4C: 109.28 ml | |LVLd A4C: 8.23 cm | |LVESV MOD A2C: 35.29 ml | |LVLs A2C: 6.68 cm | |LVESV MOD A4C: 32.04 ml | |LVLs A4C: 6.38 cm | |LAAs A4C: 16.81 cm2 | |LAESV A-L A4C: 50.38 ml | |LALs A4C: 4.76 cm | |RAAs: 13.17 cm2 | |RAESV A-L: 33.85 ml | |RAESV MOD: 31.37 ml | |RALs: 4.35 cm | |AV maxP.73 mmHg | |AV meanP.53 mmHg | |AV Vmax: 1.78 m/s | |AV Vmean: 1.06 m/s | |AV VTI: 25.77 cm | |ANTHONY Vmax: 2.77 cm2 | |ANTHONY (VTI): 2.88 cm2 | |AVAI Vmax: 0.00 cm2/m2 | |AVAI (VTI): 0.00 cm2/m2 | |LVOT maxP.59 mmHg | |LVOT meanP.01 mmHg | |LVSI Dopp: 31.91 ml/m2 | |LVSV Dopp: 74.36 ml | |LVOT Vmax: 1.28 m/s | |LVOT Vmean: 0.79 m/s | |LVOT VTI: 19.28 cm | |MV A Robles: 0.95 m/s | |MV DecT: 194.50 ms | |MV E Robles: 0.72 m/s | |MV E/A Ratio: 0.77 | |MV PHT: 56.40 ms | |MVA By PHT: 3.90 cm2 | |Septal e': 0.07 m/s | |Septal E/e': 9.08 | |Lateral e': 0.04 m/s | |Lateral E/e': 15.47 | | | |Dryer Operator: | |Authenticated by: Sabas Gaxiola | |Report Date/Time: 10-15-2016 18:23:05 | | | |IMPRESSION: | |1. This was a technically difficult study with suboptimal views. Definity contrast agent w as used to better delineate the left ventricular wall segments. | |2. Overall left ventricular systolic function is normal with, an EF between 65 - 70 %. | |3. The diastolic filling pattern indicates impaired relaxation consistent with mild dysfunc tion (Grade I). 5. No significant valvular abnormalities noted, although valvular structures were not well visualized. | + + documented in this encounter Visit Diagnoses Not on filedocumented in this encounter"
--- OUTSIDE RECORDS SUMMARY | ~2019-05-20 | XMS | Clinical Summary ---
Demographics + + + | Address | [address] | | | [place] [address] | + + + | Home Phone | | + + + | Preferred Language | Unknown | + + + | Marital Status | | + + + | Restorationist Affiliation [...] Phone | + + +---------+ + | Don Walter | ECON | Unknown | | + + +---------+ + Care Team Providers + +------+ + | Care Medical Office Representative Name | Role | Phone | + +------+ + | Garret Rojo ROCK PICKER | PCP | | + +------+ + Source Comments RYANNE is fully live on both [facility] and [facility] Allergies Not on File Medications Not on file Active Problems Not [...] | + + Last Filed Vital Signs Not on file Plan of Treatment + + + + + | Health Maintenance | Due Date | Last Done | Comments | + + + + + | Influenza (Flu) | | | | | vaccination (#1) | 9 | | | + + + + + | Pneumococcal | Aged Out | | No longer eligible | | vaccination | | | based on patient's | | | | | age to complete this | | | | | topic | + + + + + Results Not on filefrom Last 3 Months Insurance + +--------+ +--------+ + +--------+ | Payer | Benefi | Subscriber | Effect | Phone | Address | Type | | | t Plan | ID | mihaela | | | | | | / | | Dates | | | | | | Group | | | | | | + +--------+ +--------+ + +--------+ | MEDICARE | MEDICA | xxxxxxxxxx | 10/20/19 | [phone] | [address] | [employer] | | | RE A & | | 12-Pre | [address] | | | [address] | | sent | | [place] | | | | | | | | [id number] | | + +--------+ +--------+ + +--------+ + +--------+ +--------+ + + | Guarantor Name | Accoun | Relation to | Date | Phone | Billing Address | | | t Type | Patient | of | | | | | | | | | | + +--------+ +--------+ + + | Rebeca Watson | Person | Self [birth year] | [address] | | al/Fam | | 1955 | [phone] | [place] [address] | | | maira | | | [address] (Home) | | + +--------+ +--------+ + +"
--- OUTSIDE RECORDS SUMMARY | ~2019-05-20 | XMS | Encounter Summary ---
Demographics + + + | Address | [address] | | | [place] [address] | + + + | Home Phone | | + + + | Preferred Language | Unknown | + + + | Marital Status | Legally | + + + | Spiritism Affiliation | Unknown | + + + | Race | Unknown | + + + | Ethnic Group | Unknown | + + + Author + + + | Author | [facility] | | | and [place] | + + + | Organization | [facility] | | | and [...] [place] | | | | | [address] | | + + + + + | Vonnie Martinez | ECON | Unknown | | + + + + + Care Team Providers + +------+ + | Care Photo Graphics Librarian Name | Role | Phone | + +------+ + | Oscar Taylor PA-C | PCP | | + +------+ + Reason for Visit +--------+ + | Reason | Comments | +--------+ + | Other | Sleep study follow up | +--------+ + Evaluate & Treat (Routine) +--------+--------+ + + + + | Status | Reason | Specialty | Diagnoses / | Referred By | Referred To | | | | | Procedures | Contact | Contact | +--------+--------+ + + + + | Closed | | Pulmonary | Diagnoses | Rafita, | Slick, | | | | Disease / | RESPIRATORY | Lamberto Mistry, | Jessika Lewis, | | | | Pulmonology | FAILURE, | MD [address] | MD | | | | | COPD, & CHEL | [place] | | | | | | Procedures | [place], | | | | | | OFFICE | [place] [address] | | | | | | VISIT | Phone: | | | | | | REGULAR | [phone] | | | | | | | Fax: | | | | | | | [phone] | | +--------+--------+ + + + + Encounter Details +--------+---------+ + + + | Date | Type | Department | Care Team | Description | +--------+---------+ + + + | 12/05/ | Office | [facility] | Offenstein, | CHEL (obstructive | | 2013 | Visit | PULMONARY [address] | Jessika Lewis MD | sleep apnea) | | | | [place], | | (Primary Dx); | | | | [place] [address] | | Chronic obstructive | | | | [phone] | | asthma | +--------+---------+ + + + Social History [...] + + + | Blood Pressure | 114/78 | 12/05/2013 3:33 PM | | | | | PDT | | + + + + + | Pulse | 72 | 12/05/2013 3:33 PM | | | | | PDT | | + + + + + | Temperature | - | - | | + + + + + | Respiratory Rate | - | - | | + + + + + | Oxygen Saturation | 94% | 12/05/2013 3:33 PM | Room air | | | | PDT | | + + + + + | Inhaled Oxygen | - | - | | | Concentration | | | | + + + + + | Weight | 121 kg (266 lb 11.2 | 12/05/2013 3:33 PM | | | | oz) | PDT | | + + + + + | Height | 161.3 cm (5' 3.5") | 12/05/2013 3:33 PM | | | | | PDT | | + + + + + | Body Mass Index | 46.5 | 12/05/2013 3:33 PM | | | | | PDT | | + + + + + documented in this encounter Patient Instructions Patient Instructions Jessika Kruger MD - 12/05/2013 3:48 PM PDTI would recommend s tarting on an auto CPAP machine, which automatically adjusts to your pressure needs. I can o rder this and you can pick this up at [email or web address]. I would call the [employer] to make an appointment to pick it up so they can show you how to use it. They can also fit y ou to a mask. I will then see you back in about 2 weeks with a download from the machine. To get the download, you will take the machine or the chip from the back of the machine in to the [employer] and they can download information from the machine to bring in. The insurance requires that you use the machine for 4 hours or more a night 70% of the nigh ts in a 30 day time period within the first 90 days and that you bee seen at 30 to 90 days a fter starting on CPAP to keep the machine. I would also recommend that you start on loratadine 10 mg daily (generic Claritin) or cetir izine 10 mg daily (generic Zyrtec). I would also recommend starting a daily sinus rinse. Saline Nasal Washes: Saline nasal washes help keep the nasal passages open by washing out thick or dried mucus. This simple remedy can help relieve symptoms of allergies, sinusitis, and colds. It also can make the nose feel more comfortable by keeping the mucous membranes moist. You may notice a little burning sensation in your nose the first few times you use the solution, but this us ually gets better in a few days. You can buy premixed salt packets and a squeeze bottle or other sinus rinse products at a [facility] (such as [employer] Sinus Rinse Kit). Read and follow the instructions on the label. Use lukewarm distilled or boiled and cooled water. Lean forward over the sink. Put the tip of the squeeze bottle a little way into one of your nostrils. Gently squirt into the nostril. Repeat with the other nostril. Some sneezing and gagging are normal at first. Gently blow your nose. Wipe the bottle tip clean after each use, wash out, and clean according to package directio ns. Use nasal washes gently if you have nosebleeds often. When should you call for help? Watch closely for changes in your health, and be sure to contact your doctor if: You often get nosebleeds. You can apply online for the Advair assistance program: www.GeoIQ.com or www.[email or web address] documented in this encounter Progress Notes Jessika Kruger MD - 12/05/2013 3:42 PM PDTFormatting of this note might be differe nt from the original. Pulmonary Follow Up HPI Rebeca Watson is a 58 y.o. female patient of Oscar Taylor here today for follow up of chronic obstructive asthma and sleep apnea. She had a recent fall, which caused her to fracture a rib. She had her sleep study done, and she does have sleep apnea with an AHI of 20.1. She did de saturate to 72% and spent 29 minutes less than 88%. She is currently on a regimen of Qvar 2 puffs twice daily. Currently she is using her rescu e inhaler, Ventolin, 4 times a day. She returns today for routine follow up. She notes aris t the Qvar costs her $37.50, and her Ventolin costs the same. The Advair was going to cost h er more than this. Currently she is able to walk at least 2 blocks at her own pace on level ground. She has no t been walking since she fell and hurt herself. She does not have symptoms of heartburn or reflux if she takes her medication. She does hav e nasal congestion, which she describes as all the time. She is not on anything for this. 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 Social History Main Topics Smoking status: Former Smoker -- 1.0 packs/day for 40 years Quit date: 08/04/2012 Smokeless tobacco: Never Used Alcohol Use: No Drug Use: Yes Comment: clean for 15 years, used cocaine for only 2 years Sexually Active: None Other Topics Concern None Social History Narrative Lives in [place] with her grandchildren. She is from her . No known exp osure to toxic chemicals or asbestos. No known exposure to tuberculosis.Has dogs at home. No other animal exposures. Allergies: Allergies Allergen Reactions Quinine Tramadol Medications: Outpatient Encounter Prescriptions as of 12/05/2013 Medication Sig Dispense Refill albuterol (VENTOLIN HFA) 90 mcg/puff inhaler Inhale 2 puffs into the lungs every 6 hour s as needed. albuterol 2.5 mg/3 mL nebulizer solution Take 2.5 mg by nebulization every 6 hours as n eeded. ALPRAZolam (XANAX XR) 1 mg 24 hr tablet Take 1 mg by mouth nightly. [DISCONTINUED] amitriptyline (ELAVIL) 25 mg tablet Take 25 mg by mouth nightly. aspirin 81 mg EC tablet Take 81 mg by mouth Daily. beclomethasone (QVAR) 40 mcg/puff inhaler Inhale 2 puffs into the lungs 2 times daily. [DISCONTINUED] buPROPion (WELLBUTRIN SR) 150 mg 12 hr tablet Take 150 mg by mouth Daily . carvedilol (COREG) 25 mg tablet Take 25 mg by mouth 2 times daily (with breakfast & din ner). furosemide (LASIX) 20 mg tablet Take 20 mg by mouth Daily. gabapentin (NEURONTIN) 300 mg capsule Take 800 mg by mouth 3 times daily. Take 900mg at bedtime and 600mg in the AM. [DISCONTINUED] hydrochlorothiazide 25 mg tablet Take 25 mg [...] times daily (with breakf ast & dinner). NOVOLIN R RELION 100 UNIT/ML injection omeprazole (PRILOSEC) 20 mg capsule Take 20 mg by mouth every morning (before breakfast ). RELION INSULIN SYRINGE 1ML/31G 31G X 5/16" 1 ML [facility] Respiratory Therapy Supplies [facility] Res Med S9 auto CPAP 5-15 cm H2O. Heater and Humidifi er. All necessary supplies.AHI 22.8. Diagnosis Code(s)327.23. Length of Need lifetime. Gian wall send order to [facility] [place]. Send copy of sleep study from 2005 with order. 1 each 99 Review of Systems Constitutional: Denies fever, chills, sweats, and change in weight. Eyes: Denies vision change and eye irritation. ENT: Denies decreased hearing, nosebleeds, sore throat, and hoarseness. Resp: See HPI. CV: Denies chest pain, palpitations, syncope. Chronic leg swelling. GI: Denies nausea, vomiting, and abdominal pain. : Denies difficulty emptying bladder. Objective BP 114/78 | Pulse 72 | Ht 1.613 m (5' 3.5") | Wt 120.974 kg (266 lb 11.2 oz) | BMI 46.50 kg /m2 | SpO2 94% RA General Appearance: Alert, cooperative, no distress, appears stated age Head: Normocephalic, without obvious abnormality, atraumatic Eyes: PERRL, conjunctiva clear, no scleral icterus, EOM's intact Ears: Normal TM's, external auditory canals, normal acuity Nose: Nares normal, septum midline, mucosa edematous with some yellow mucous drainage on th e left Mouth: No oral lesions or exudate Neck: Supple, symmetrical, no adenopathy Lungs: No accessory muscle use, breath sounds are diminished bilaterally with prolongatio n of the expiratory phase, no wheezes, crackles or rhonchi Chest Wall: No deformity Heart: Regular rate and rhythm, no murmur, rub or gallop Abdomen: Soft, non-tender, non-distended, obese Extremities: No cyanosis, or clubbing, trace bilateral lower extremity edema Pulses: Radial pulses 2+ and symmetric Skin: Warm and dry Lymph nodes: Cervical and supraclavicular nodes normal Data: Diagnostic NPSG was done on November 06, 2013 and showed an AHI of 20.1. She did desaturate to 7 2% and spent 29.8 minutes with a saturation less than 88%. She has a mildly elevated ET CO2 spending 25.8 minutes with an ET CO2 of 50-65 in REM sleep and 14.8 minutes with an ET CO2 o f 50-65 in non REM sleep. Immunization History Administered Date(s) Administered INFLUENZA, PRESERVATIVE FREE IM 04/10/2012, 03/21/2013 Pneumococcal (Adult) 08/11/2012 Assessment 1. CHEL (obstructive sleep apnea) - Repeat NPSG confirms diagnosis. She has a very mildly el evated ET CO2 but previously did well on auto CPAP, so we will try this again, along with eileen sidra to get her on a better medication regimen for her lung disease (partly a financial issu e). Prescribed auto CPAP, [id number] as a starting point as that is what she used previously and went over compliance guidelines. We will recheck in 2 weeks. 2. Chronic obstructive asthma - On Qvar and Ventolin. She would be better off on Advair. mae notes in 2 months she will have better insurance as well. We discussed change to nebulized version of medications, and she is not sure she is ready for this. I gave her resources to apply for Advair assistance, which we cannot apply for her, as she has to provide her income information. Plan 1.Start auto CPAP 9-13cm H2O and check download 2 weeks after starting. 2.Continue Qvar and Ventolin. 3.Resources provided to look in to applying for Advair assistance. Also we could consider s witching to budesonide/Perforomist nebulizers. 28 minutes were spent with Ms. Watson and her daughter with greater than 50% spent in housing counselor ing and coordination of care regarding sleep study results, treatment and treatment of her l nelda disease. She was advised to call if new pulmonary symptoms were to develop. Return to clinic in about 2-3 weeks, or sooner with concerns. CC: Oscar Taylor Portions of this report were transcribed using voice recognition software. Every effort wa s made to ensure accuracy; however, inadvertent computerized commercial real estate agent errors may be pre sent. Electronically signed by: Jessika Kruger MD 12/05/2013 16:00 documented in t his encounter Plan of Treatment +--------+ + + + + | Date | Type | Specialty | Care Team | Description | +--------+ + + + + | 05/25/ | Clinical | Cardiology | Efrain Gaxiolarey Lc, | | | 2018 | Support | | [address] | | | | | | [place] | | | | | | [place] [address] | | | | | | [phone] | | | | | | | | +--------+ + + + + | 06/12/ | Office | Cardiology | [place] | | | 2019 | Visit | | [address] | | | | | | [address] | | | | | | [place] [address] | | | | | | [phone] | | | | | | | | +--------+ + + + + documented as of this encounter Visit Diagnoses + + | Diagnosis | + + | CHEL (obstructive sleep apnea) - Primary Obstructive sleep apnea (adult) (pediatric) | + + | Chronic obstructive asthma Chronic obstructive asthma, unspecified | + + documented in this encounter
--- OUTSIDE RECORDS SUMMARY | ~2019-05-20 | XMS | Encounter Summary ---
Demographics + + + | Address | [address] | | | [place] [address] | + + + | Home Phone | | + + + | Preferred Language | Unknown | + + + | Marital Status | Legally | + + + | Taoist Affiliation | Unknown | + + + | Race | Unknown | + + + | Ethnic Group | Unknown | + + + Author + + + | Author | [facility] | | | and [place] | + + + | Organization | [facility] | | | and [...] [place] | | | | | [address] | | + + + + + | Vonnie Martinez | ECON | Unknown | | + + + + + Care Team Providers + +------+ + | Care Tangible Personal Property Appraiser Name | Role | Phone | + +------+ + | Oscar Taylor PA-C | PCP | | + +------+ + Encounter Details +--------+ + + + + | Date | Type | Department | Care Team | Description | +--------+ + + + + | 09/28/ | Orders Only | [facility] | Jeremiah Mendoza MD | | | 2013 | | NEPRHOLOGY [place] | [address] | | | | | [address] | [address] [place], [place] | | | | | [address] [place], [place] | [address] | | | | | [address] | | | | | | [phone] | | | +--------+ + + + [...] | | | | | | [place] [address] | | | | | | [phone] | | | | | | | | +--------+ + + + + | 06/12/ | Office | Cardiology | [place] | | | 2019 | Visit | | [address] | | | | | | [address] | | | | | | [place] [address] | | | | | | [phone] | | | | | | | | +--------+ + + + + documented as of this encounter Procedures + +--------+ + + + | Procedure Name | Priori | Date/Time | Associated Diagnosis | Comments | | | ty | | | | + +--------+ + + + | EXTERNAL LAB: WILL | Routin | 09/28/2013 | | Results [...] | | | LAB | | | [place] | | | | | + +-------+ [...]
--- OUTSIDE RECORDS SUMMARY | ~2019-05-20 | XMS | Encounter Summary ---
Demographics + + + | Address | [address] | | | [place] [address] | + + + | Home Phone | | + + + | Preferred Language | Unknown | + + + | Marital Status | Legally | + + + | Pentecostal Affiliation [...] [place] | | | | | [address] | | + + + + + | Vonnie Martinez | ECON | Unknown | | + + + + + Care Team Providers + +------+ + | Care Engineering Clerk Name | Role | Phone | + [...] | | (obstructive | Jessika B, | Picher | | | | | sleep | MD [address] | [place], | | | | | apnea) | [address] | [place] [address] | | | | | Procedures | [place], | Phone: | | | | | [place] | [place] [address] | [phone] | | | | | 6/>YRS SLEEP | | Fax: | | | | | 4/> ADDL | | [phone] | | | | | FAUSTO ATTND [...] asthma (Primary Dx); | | | | [address] [place], | | Allergic rhinitis; | | | | [place] [address] | | CHEL (obstructive | | | | [phone] | | sleep apnea) | +--------+---------+ + [...] a CPAP machine. She was told in [place] she di d not have to use her CPAP machine and placed her on oxygen. They did not repeat her sleep s tudy. Past Medical History Past Medical History Diagnosis Date Acute respiratory failure (HCC) asthma/copd exacebration COPD (chronic obstructive pulmonary disease) ([facility]) CHEL (obstructive sleep apnea) AHI 22.8 in [...] N/A Years of Education: N/A Occupational History [employer]. Social History Main Topics Smoking status: Former Smoker -- 1.0 packs/day for 40 years Quit date: 08/04/2012 Smokeless tobacco: Never Used Alcohol Use: No Drug Use: Yes Comment: clean for 15 years, used cocaine for only 2 years Sexually Active: None Other Topics Concern None Social History Narrative Lives in [place] with her grandchildren. She is from her [...] breakfast ). Respiratory Therapy Supplies [facility] S9 auto CPAP 5-15 cm H2O. Heater and Humidifi er. All necessary supplies.AHI 22.8. Diagnosis Code(s)327.23. Length of Need lifetime. Gian wall send order to [facility] [place]. Send copy of sleep study from 2005 [...] and used her CPAP until moving to [facility], when she turned it in. She attempted to get a CPAP in [place] and was told she neede d only oxygen at that time. Getting her apnea under control is going to affect how she feels , and affect her breathing, diabetes control, etc. We will refer for a repeat diagnostic AGRICULTURAL EXTENSION OFFICER G to qualify her for treatment. Plan [...] made to ensure accuracy; however, inadvertent computerized marketing operations manager errors may be pre sent. Electronically signed [...] | | | | | | [place] [address] | | | | | | [phone] | | | | | | | | +--------+ + + + + | 06/12/ | Office | Cardiology | [place] | | | 2019 | Visit | | [address] | | | | | | [address] | | | | | | [place] [address] | | | | | | [phone] | | | | | | | [...]
--- OUTSIDE RECORDS SUMMARY | ~2019-05-20 | XMS | Clinical Summary ---
Demographics + + + | Address | [address] | | | [place] [address] | + + + | Home Phone | | + + + | Preferred Language | Unknown | + + + | Marital Status | | + + + | Episcopal Affiliation | Unknown | + + + [...] Team Providers + +------+ + | Care Photographer Portrait Name | Role | Phone | + +------+ + | Garret Rojo WIRE STITCHER OPERATOR | PCP | | + +------+ + Source Comments RYANNE is fully live on both Health system Ambulatory and Health system In[facility] Allergies Not on File Medications Not on [...] | [employer] | xxxxxxxxxx | 10/20/19 | [phone] | [address] | [employer] | | | RE A & | | 12-Pre | [address] | [address] | [address] | | | [address] | | sent | | [place] | | | | | | | | [address] | | + +--------+ +--------+ + +--------+ [...] | 1955 | [phone] | [place] [address] | | | maira | | | 9 (Home) | | + +--------+ +--------+ + +"
--- OUTSIDE RECORDS SUMMARY | ~2019-05-20 | XMS | Encounter Summary ---
Demographics + + + | Address | [address] | | | [place] [address] | + + + | Home Phone [...] + + + | Author | [facility] | | | and [place] | + + + | Organization | [facility] | | | [...] [place] | | | | | [address] | | + + + + + | Vonnie Martinez | ECON | Unknown | | + + + + + Care Team Providers + +------+ + | Care Market Intelligence Consultant Name | Role | Phone | + +------+ + | Oscar Taylor PA-C | PCP | | + +------+ + Encounter Details +--------+ + + + + | Date | Type | Department | Care Team | Description | +--------+ + + + + | 11/02/ | Orders Only | [facility] | Phan Jones, | | | 2018 | | NEPHROLOGY [facility] | MAGAZINE PUBLISHER [address] | | | | | [address] [place] | [address] | | | | | [address] [facility] [place] | [place], [place] | | | | | [address] | [address] | | | | | [phone] | [phone] | | | | | | | [...] [place], | | | | | | [place] [address] | | | | | | [phone] | | | | | | | | +--------+ + + + + | 06/12/ | Office | Cardiology | BridgetteLinda | | | 2018 | Visit | | [address] | | | | | | [address] [address] | | | | | | [place] [address] | | | | | | [phone] | | | | | | | | +--------+ + + + + documented as of this encounter Procedures + +--------+ + + + | Procedure Name | Priori | Date/Time | Associated Diagnosis | Comments | | | ty | | | | + +--------+ + + + | EXTERNAL LAB: WILL | Routin | 11/02/2018 | | Results for this | | | e | 12:00 AM | | procedure are in the | | | | PDT | | results section. | + +--------+ + + + | MAGNESIUM | Routin | 11/02/2018 | | Results for this | | | e | 12:00 AM | | procedure are in the | | | | PDT | | results section. | + +--------+ + + + | RENAL FUNCTION PANEL | Routin | 11/02/2018 | | Results for this | | | e | 12:00 AM | | procedure are in the | | | | PDT | | results section. | + +--------+ + + + documented in this encounter Results External Lab: CBC (11/02/2018 12:00 AM PDT) + + + + + + | Component | Value | Ref Range | Performed | Pathologist | | | | | At | Signature | + + + + + + | WBC | 5.7 | 4.5 - 11.0 10 | EXTERNAL | | | | | | LAB | | + + + + + + | RED CELL | 3.72 (A) | 3.8 - 5.1 10 | EXTERNAL | | | COUNT | | | LAB | | + + + + + + | Hgb | 10.6 (A) | 12.0 - 16.0 | EXTERNAL | | | | | g/dL | LAB | | + + + + + + | Hematocrit, | 33.1 (A) | 35 - 45 % | EXTERNAL | | | POC | | | LAB | | + + + + + + | MCV | 88.8 | 81 - 99 fL | EXTERNAL [...] + + + + | Platelet | 89 (A) | 140 - 440 K/ L | EXTERNAL | | | Count | | | LAB | | | Plasma | | | | | + + + + + + | RDW-CV | 14.8 | 10.5 - 15.0 % | EXTERNAL [...] + + + | % Segmented | 56.3 | 39 - 80 % | EXTERNAL | | | | | | LAB | | | Neutrophils | | | | | + + + + + + | % | 32.2 | 24 - 44 % | EXTERNAL | | | Lymphocytes | | | LAB | | + + + + + + | % Monocytes | 7.4 | 0 - 12 % | EXTERNAL | | | | | | LAB | | + + + + + + | % | 3.1 | 0 - 6 % | EXTERNAL | | | Eosinophils | | | LAB | | + + + + + + | % Basophils | 1.0 | 0 - 2 % | EXTERNAL | | | | [...] | | + +---------+ + + Magnesium (11/02/2018 12:00 AM PDT) + +-------+ + [...] + +---------+ + + Renal Function Panel (11/02/2018 12:00 AM PDT) + +---------+ + + + | Component | Value | Ref Range | Performed | Pathologist | | | | | At | Signature | + +---------+ + + + | Glucose, | 165 (A) | 70 - 100 mg/dL | EXTERNAL | | | Fasting | | | LAB | | + +---------+ + + + | BUN | 13 | 6 - 23 mg/dL | EXTERNAL | | | | | | LAB | | + +---------+ + + + | Creatinine | 1.16 | 0.70 - 1.25 | EXTERNAL | | | | | mg/dL | LAB | | + +---------+ + + + | PHOSPHORUS | 3.2 | 2.5 - 5.0 mg/dL | EXTERNAL | | | | | | LAB | | + +---------+ + + + | Albumin | 3.3 (A) | 3.5 - 5.0 | EXTERNAL | | | | | | LAB | | + +---------+ + + + | Na | 139 | 132 - 143 | EXTERNAL | | | | | mmol/L | LAB | | + +---------+ + + + | K | 4.5 | 3.6 - 5.1 | EXTERNAL | | | | | mmol/L | LAB | | + +---------+ + + + | Cl | 104 | 95 - 112 mmol/L | EXTERNAL | | | | | | LAB | | + +---------+ + + + | CO2 | 28 | 19 - 31 mmol/L | EXTERNAL | | | | | | LAB | | + +---------+ + + + | Anion Gap | 11.5 | 7 - 21 mmol/L | EXTERNAL | | | | | | LAB | | + +---------+ + + + | eGFR if not | | | EXTERNAL | | | | | | LAB | | | [facility] | | | | | + +---------+ + + + | Phosphorus, | | | EXTERNAL | | | Inorganic | | | LAB | | + +---------+ + + + | BUN/Creatin | 11.2 | 6.0 - 28.6 | EXTERNAL | | | ine Ratio | | | LAB | | + +---------+ + + + | Calcium | 9.2 | 8.5 - 10.3 | EXTERNAL | | | | | mg/dL | LAB | | + +---------+ + + + | Estimated | 47 (A) | 60 - 140 mg/dL | EXTERNAL | | | GFR [...]
--- OUTSIDE RECORDS SUMMARY | ~2019-05-20 | XMS | Encounter Summary ---
Demographics + + + | Address | [address] | | | [place] [address] | + + + | Home Phone | | + + + | Preferred Language | Unknown | + + + | Marital Status | Legally | + + + | Muslim Affiliation | Unknown | + + + [...] [place] | | | | | [address] | | + + + + + | Vonnie Martinez | ECON | Unknown | | + + + + + Care Team Providers + +------+ + | Care Net Software Architect Name | Role | Phone | + [...] + + | 03/17/ | Refill | [facility] | Sabas Gaxiola, | Medication Refill | | 2019 | | CARDIOLOGY [place] | [address] | | | | | [address] | [facility], | | | | | [place], [place] | [place] [address] | | | | | [address] | [phone] | | | | | [phone] | | | +--------+--------+ + + + [...] | | | | | | [place] [address] | | | | | | [phone] | | | | | | | | +--------+ + + + + | 06/12/ | Office | Cardiology | [place] | | | 2018 | Visit | | [address] | | | | | | [address] | | | | | | [place] [address] | | | | | | [phone] | | | | | | | | +--------+ + + + + documented as of this encounter Visit Diagnoses Not on filedocumented in this encounter"
--- OUTSIDE RECORDS SUMMARY | ~2019-05-20 | XMS | Encounter Summary ---
Demographics + + + | Address | [address] | | | [place] [address] | + + + | Home Phone [...] Author + + + | Author | [facility] | | | and [place] | + + + | Organization | [facility] | | | [...] [place] | | | | | [address] | | + + + + + | Vonnie Martinez | ECON | Unknown | | + + + + + Care Team Providers + +------+ + | Care Logging Assistant Name | Role | Phone | + +------+ + | Oscar Taylor PA-C | PCP | | + +------+ + Reason for Visit +--------+ + | Reason | Comments | +--------+ + | COPD | and CHEL | +--------+ + Encounter Details +--------+---------+ + + + | Date | Type | Department | Care Team | Description | +--------+---------+ + + + | 10/20/ | Office | [facility] | [place], | Acute sinusitis | | 2012 | Visit | PULMONARY [address] | Jessika Lewis MD | (Primary Dx); | | | | [place], | | Chronic obstructive | | | | [place] [address] | | asthma (HCC); | | | | [phone] | | Allergic rhinitis; | | | | | | CHEL (obstructive | | | | | | sleep apnea); GERD | | | | | | (gastroesophageal | | | | | | reflux disease) | +--------+---------+ + + + Social History [...] + + + | Blood Pressure | 126/70 | 10/20/2012 1:04 PM | | | | | PDT | | + + + + + | Pulse | 71 | 10/20/2012 1:04 PM | | | | | PDT | | + + + + + | Temperature | - | - | | + + + + + | Respiratory Rate | - | - | | + + + + + | Oxygen Saturation | 97% | 10/20/2012 1:04 PM | | | | | PDT | | + + + + + | Inhaled Oxygen | - | - | | | Concentration | | | | + + + + + | Weight | 112.3 kg (247 lb 8 | 10/20/2012 1:04 PM | | | | oz) | PDT | | + + + + + | Height | 161.3 cm (5' 3.5") | 10/20/2012 1:04 PM | | | | | PDT | | + + + + + | Body Mass Index | 43.15 | 10/20/2012 1:04 PM | | | | | PDT | | + + + + + documented in this encounter Patient Instructions Patient Instructions Jessika Kruger MD - 10/20/2012 1:44 PM PDTStart cetirizine 10 mg a day (generic Zyrtec). To use the flunisolide nasal spray properly, close one side of the nostril, place the spray part way in, angle slightly towards the outside of the nostril, and the spray as you breath e in through your nose. Use this 2 sprays once a day, every day. Start Pelon Med Sinus Rinse Kit once daily before your nasal spray. Use Afrin (or generic equivalent) nasal spray per package directions FOR FIVE DAYS ONLY, EN STOP. Take Augmentin per directions until completed. I will order the CPAP machine, but we may need to repeat your sleep study. If you do not he ar from [facility], give us a call. documented in this encounter Progress Notes Jessika Kruger MD - 10/20/2012 1:32 PM PDTFormatting of this note might be meliton nt from the original. Pulmonary Follow Up Note HPI Rebeca Chavez Walter is a 57 y.o. female patient of Oscar Taylor here today for follow up of ARELI Chavez. At their last visit, we had changed her from Symbicort to Advair 500mcg. She does note that the Advair is quite expensive for her, her co pay is about $35. Since their last visit she feels like she has been doing well. Her breathing has been doing pretty well. She does fee l like the change from Symbicort to Advair has helped. She notes that she has had increased nasal congestion for about two weeks. Her nasal draina ge has now turned green and is becoming painful. She is getting headaches and she can't drai n her mucous out well. She has not had any fevers. She does feel like she does get seasonal congestion. She did start on the nasal flunisolide, but she threw out the box and then was u ncertain how to use it. She has been using it as needed, but basically every day. She has no t yet refilled it since I last saw her. Currently they are able to walk 3 blocks at their own pace on level ground. She is not exer cising regularly. She will do an extra lap around [employer] before starting her shopping every other day. She does not cough chronically, and does not produce mucous. She has not had hemoptysis. She did not mushroom picker her CPAP machine and we never heard anything from [facility] about her being denied. I suspect she will need another sleep study, but we never heard any confi rmation either way. She is not on the nocturnal oxygen either. She does not have symptoms of heartburn or reflux. She is on medication for this. Past Medical History Past Medical History Diagnosis Date Acute respiratory failure asthma/copd exacebration COPD (chronic obstructive pulmonary disease) CHEL (obstructive sleep apnea) AHI 22.8 in 2006, Dr. 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 Social History Main Topics Smoking status: Former Smoker -- 1.0 packs/day for 40 years Quit date: 08/04/2012 Smokeless tobacco: Never Used Alcohol Use: No Drug Use: Yes clean for 15 years, used cocaine for only 2 years Sexually Active: None Other Topics Concern None Social History Narrative Lives in [place] with her grandchildren. She is from her . No known exp osure to toxic chemicals or asbestos. No known exposure to tuberculosis.Has dogs at home. No other animal exposures. Allergies: Allergies Allergen Reactions Quinine Tramadol Medications: Outpatient Encounter Prescriptions as of 10/20/2012 Medication Sig Dispense Refill albuterol 2.5 mg/3 mL nebulizer solution Take 2.5 mg by nebulization every 6 hours as n eeded. albuterol (VENTOLIN HFA) 90 mcg/puff inhaler Inhale 2 puffs into the lungs every 6 hour s as needed. insulin aspart (NOVOLOG FLEXPEN) 100 units/mL injection Inject under the skin. Take 15 units before each meal ( 3 times daily). Than take PRN flunisolide (NASAREL) 29 MCG/ACT (0.025%) nasal spray 2 sprays by Nasal route Daily. Do se is for each nostril. 25 mL 12 fluticasone-salmeterol (ADVAIR DISKUS) 500-50 mcg/puff diskus inhaler Inhale 1 puff int o the lungs Twice Daily. 1 each 11 Respiratory Therapy Supplies [facility] [place] S9 auto CPAP 5-15 cm H2O. Heater and Humidifi er. All necessary supplies.AHI 22.8. Diagnosis Code(s)327.23. Length of Need lifetime. Gian wall send order to [facility]. Send copy of sleep study 2005. 1 each 99 gabapentin (NEURONTIN) 300 mg capsule Take 300 [...] by mouth every morning (before breakfast ). buPROPion (WELLBUTRIN SR) 150 mg 12 hr tablet Take 150 mg by mouth Daily. insulin glargine (LANTUS) 100 units/mL injection Inject 35 Units under the skin nightly . DISCONTD: predniSONE (DELTASONE) 10 mg tablet Take 10 mg by mouth Daily. Tapering dose DISCONTD: hydrochlorothiazide 25 mg tablet Take 25 mg by mouth Daily. Review of Systems Constitutional: Denies fever, chills, sweats, and change in weight. Sleep: Tired a lot of the time. Known sleep apnea diagnosed in 2005 and used CPAP until 07 01 when she moved and was placed on nocturnal oxygen by her provider when she moved. Eyes: Denies vision change and eye irritation. ENT: Denies decreased hearing, sore throat, and hoarseness. Notes that she had some left ear pain yesterday, better today. Some minor nosebleeding. Resp: See HPI. CV: Denies chest pain, palpitations, syncope, and peripheral edema. GI: Denies nausea, vomiting, and abdominal pain. : Denies difficulty emptying bladder. Nocturia 1-2 times a night. Objective BP 126/70 | Pulse 71 | Ht 1.613 m (5' 3.5") | Wt 112.265 kg (247 lb 8 oz) | BMI 43.15 kg/m2 | SpO2 97% General Appearance: Alert, cooperative, no distress, appears stated age, obese Head: Normocephalic, without obvious abnormality, atraumatic Eyes: PERRL, conjunctiva clear, no scleral icterus, EOM's intact Ears: Normal TM's, external auditory canals, normal acuity Nose: Nares normal, septum midline, mucosa edematous with yellow and bloody drainage Mouth: No oral lesions or exudate Neck: Supple, symmetrical, no adenopathy Lungs: No accessory muscle use, breath sounds are somewhat diminished bilaterally, no whe ezes, crackles or rhonchi Chest Wall: No deformity Heart: Regular rate and rhythm, no murmur, rub or gallop Abdomen: Soft, non-tender, non-distended, obese Extremities: No cyanosis, clubbing, or edema Pulses: Radial pulses 2+ and symmetric Skin: Warm and dry Lymph nodes: Cervical and supraclavicular nodes normal Data: Immunization History Administered Date(s) Administered INFLUENZA, PRESERVATIVE FREE IM 04/10/2012 Pneumococcal (Adult) 08/11/2012 Assessment /Plan Ms. Watson was seen today for follow up of chronic obstructive asthma. Diagnoses and associated orders for this visit: Acute sinusitis She appears to have acute sinusitis. I recommended treatment with Augmentin plus 5 days of Afrin, and sinus rinses daily. - amoxicillin-clavulanate (AUGMENTIN) 875-125 mg per tablet; Take 1 tablet by mouth 2 times daily for 7 days. Chronic obstructive asthma She is doing well in this regard. We will continue the high dose Advair. - albuterol 2.5 mg/3 mL nebulizer solution; Take 2.5 mg by nebulization every 6 hours as ne eded. Allergic rhinitis Continue on nasal flunisolide, reordered today. Chel (obstructive sleep apnea) I have ordered her CPAP again and asked her to contact us if she does not hear anything fro m the [facility]. She may need another sleep study. - Respiratory Therapy Supplies MISC; Res Med S9 auto CPAP 5-15 cm H2O. Heater and Humidifie r. All necessary supplies.AHI 22.8. Diagnosis Code(s)327.23. Length of Need lifetime. Please send order to [facility] [place]. Send copy of sleep study from 2005 with order. Gerd (gastroesophageal reflux disease) Well controlled on omeprazole. She was advised to call if new pulmonary symptoms were to develop. Return to clinic in 3 months, or sooner with concerns. CC: Oscaraleks Taylor Portions of this report were transcribed using voice recognition software. Every effort wa s made to ensure accuracy; however, inadvertent computerized ticket machine operator errors may be pre sent. documented in [...] [place] | | | | | | [place] [address] | | | | | | [phone] | | | | | | | | +--------+ + + + + | 06/12/ | Office | Cardiology | [place] | | | 2018 | Visit | | [address] | | | | | | [address] | | | | | | [place] [address] | | | | | | [phone] | | | | | | | | +--------+ + + + + documented as of this encounter Visit Diagnoses + + | Diagnosis | + + | Acute sinusitis - Primary Acute sinusitis, unspecified | + + | Chronic obstructive asthma (HCC) Chronic obstructive asthma, unspecified | + + | Allergic rhinitis Allergic rhinitis, cause unspecified | + + | CHEL (obstructive sleep apnea) Obstructive sleep apnea (adult) (pediatric) | + + | GERD (gastroesophageal reflux disease) Esophageal reflux | + + documented in this encounter
--- OUTSIDE RECORDS SUMMARY | ~2019-05-20 | XMS | Encounter Summary ---
Demographics + + + | Address | [address] | | | [place] [address] | + + + | Home Phone | | + + + | Preferred Language | Unknown | + + + | Marital Status | Legally | + + + | Anabaptism Affiliation | Unknown | + + + | Race | Unknown | + + + | Ethnic Group | Unknown | + + + Author + + + | Author | [facility] | | | and [place] | + + + | Organization | [facility] | | [...] [place] | | | | | [address] | | + + + + + | Vonnie Martinez | ECON | Unknown | | + + + + + Care Team Providers + +------+ + | Care Emu Farmer Name | Role | Phone | + +------+ + PCP | Unavailable | + +------+ + Encounter Details +--------+ + + + + | Date | Type | Department | Care Team | Description | +--------+ + + + + | 10/23/ | Hospital | [facility] | Kulwinder Lima | | | 2006 | Encounter | MED CTR SLEEP | MD Ampar[address] | | | | | [place] [address] | [address] [place] | | | | | [place], [place] | [place] [address] | | | | | [address] | [phone] | | | | | [phone] | | | +--------+ + + + [...] [place] | | | | | | [place] [address] | | | | | | [phone] | | | | | | | | +--------+ + + + + | 06/12/ | Office | Cardiology | [place] | | | 2018 | Visit | | [address] | | | | | | [address] | | | | | | [place] [address] | | | | | | [phone] | | | | | | | | +--------+ + + + + documented as of this encounter Visit Diagnoses Not on filedocumented in this encounter"
--- OUTSIDE RECORDS SUMMARY | ~2019-05-20 | XMS | Encounter Summary ---
Demographics + + + | Address | [address] | | | [place] [address] | + + + | Home Phone | | + + + | Preferred Language | Unknown | + + + | Marital Status | Legally | + + + | Synagogue Affiliation | Unknown | + + + | Race | Unknown | + + + | Ethnic Group | Unknown | + + + Author + + + | Author | [facility] | | | and [place] | + + + | Organization | [facility] | | | [...] [place] | | | | | [address] | | + + + + + | Vonnie Martinez | ECON | Unknown | | + + + + + Care Team Providers + +------+ + | Care Reproduction Machine Loader Name | Role | Phone | + [...] | | (obstructive | Jessika B, | [place] | | | | | sleep | MD [address] | [place], | | | | | apnea) | [address] | [place] [address] | | | | | Procedures | LUCIA MYRES, | Phone: | | | | | [place] | [place] [address] | [phone] | | | | | 6/>YRS SLEEP | | Fax: | | | | | 4/> ADDL | | [phone] | | | | | FAUSTO ATTND | | | | | | | NPSG | | | +--------+ + + + + + Encounter Details +--------+ + + + + | Date | Type | Department | Care Team | Description | +--------+ + + + + | 11/06/ | Hospital | [facility] | [place], | CHEL (obstructive | | 2013 | Encounter | MED CTR SLEEP | Jessika Lewis MD | sleep apnea) | | | | [address] [place] | | | | | | [place] | | | | | | [address] | | | | | | [phone] | | | +--------+ + + + [...] | | | | | | [place] [address] | | | | | | [phone] | | | | | | | | +--------+ + + + + | 06/12/ | Office | Cardiology | [place] | | | 2019 | Visit | | [address] | | | | | | [address] | | | | | | [place] [address] | | | | | | [phone] | | | | | | | [...]
--- OUTSIDE RECORDS SUMMARY | ~2019-05-20 | XMS | Encounter Summary ---
Demographics + + + | Address | [address] | | | [place] [address] | + + + | Home Phone | | + + + | Preferred Language | Unknown | + + + | Marital Status | Legally | + + + | Protestant Affiliation | Unknown | + + + | Race | Unknown | + + + | Ethnic Group | Unknown | + + + Author + + + | Author | [facility] | | | and [place] | + + + | Organization | [facility] | | | [...] [place] | | | | | [address] | | + + + + + | Vonnie Martinez | ECON | Unknown | | + + + + + Care Team Providers + +------+ + | Care Social Worker Health Services Name | Role | Phone | + [...] + + | 03/15/ | Refill | [facility] | Sabas Gaxiola, | Medication Refill | | 2019 | | CARDIOLOGY [place] | [address] | | | | | [address] | [facility], | | | | | [place], [place] | [place] [address] | | | | | [address] | [phone] | | | | | [phone] | | | +--------+--------+ + + + [...] | | | | | | [place] [address] | | | | | | [phone] | | | | | | | | +--------+ + + + + | 06/12/ | Office | Cardiology | [place] | | | 2018 | Visit | | [address] | | | | | | [address] | | | | | | [place] [address] | | | | | | [phone] | | | | | | | | +--------+ + + + + documented as of this encounter Visit Diagnoses Not on filedocumented in this encounter"
--- OUTSIDE RECORDS SUMMARY | ~2019-05-20 | XMS | Encounter Summary ---
Demographics + + + | Address | [address] | | | [place] [address] | + + + | Home Phone | | + + + | Preferred Language | Unknown | + + + | Marital Status | Legally | + + + | Mu-Ism Affiliation | Unknown | + + + [...] | [address] | | | | | [place] | | | | | [address] | | + + + + + | Vonnie Martinez | ECON | Unknown | | + + + + + Care Team Providers + +------+ + | Care Community Service Coordinator Name | Role | Phone | + [...] | | [address] | [place], | | | | | [place], [place] | [place] [address] | | | | | [address] | [phone] | | | | | [phone] | | | +--------+ + + + [...] | 05/25/ | Clinical | Cardiology | Lula Gaxiola, | | | 2018 | Support | | MD [address] | | | | | | [place], | | | | | | [place] [address] | | | | | | [phone] | | | | | | | | +--------+ + + + + | 06/12/ | Office | Cardiology | [place] | | | 2019 | Visit | | [address] | | | | | | [address] | | | | | | [place] [address] | | | | | | [phone] | | | | | | | [...] | | | RV S': 0.17 m/s Server Programmer: Authenticated by: LULA | | | MD [...] cmLVPWd: 1.04 | | cmLVOT Area: 3.66 [id number] Diam: 2.16 cm%FS: 36.17 %EF(Teich): 65.42 %ESV(Teich): [...] (A-L): 23.84 ml/m2LAAs A2C: | | 18.64 [id number] A-L A2C: 56.14 mlLALs A2C: 5.25 cmLAAs A4C: 17.78 dx4AETIF A-L A4C: | | 53.67 mlLALs A4C: 5.00 cmRAAs: 17.49 [id number] A-L: 52.33 mlRAESV MOD: 50.61 | | mlRALs: 4.96 cmTAPSE: 3.12 cmAV maxP.18 mmHgAV meanP.88 mmHgAV Vmax: | | 1.81 m/Arianna Vmean: 1.17 m/Arianna VTI: 33.78 cmAVA Vmax: 2.36 cm2AVA (VTI): 2.47 | | cr1IEGQ Vmax: 0.00 cm2/m2AVAI (VTI): 0.00 cm2/m2LVOT maxP.47 mmHgLVOT meanPG: | | 2.68 mmHgLVSI Dopp: 35.40 ml/m2LVSV Dopp: 83.55 mlLVOT Vmax: 1.16 m/sLVOT Vmean: | | 0.74 m/sLVOT VTI: 22.77 cmMV A Robles: 1.04 m/sMV DecT: 277.62 msMV E Robles: 0.90 | | m/sMV E/A Ratio: 0.86MV PHT: 80.51 msMVA By PHT: 2.73 xl9Broyly e': 0.05 | | m/sSeptal E/e': 17.90Lateral e': 0.05 m/sLateral E/e': 15.62RV S': 0.17 m/s | | Server Programmer:Authenticated by: Artemio DOWNING Date/Time: 08-18-2017 17:9:28 | [...] |RV S': 0.17 m/s | | | |Server Programmer: | |Authenticated by: LULA GAXIOLA MD | [...]
--- OUTSIDE RECORDS SUMMARY | ~2019-05-20 | XMS | Encounter Summary ---
Demographics + + + | Address | [address] | | | [place] [address] | + + + | Home Phone [...] [place] | | | | | [address] | | + + + + + | Vonnie Martinez | ECON | Unknown | | + + + + + Care Team Providers + +------+ + | Care Paster Operator Name | Role | Phone | + +------+ + PCP | Unavailable | + +------+ + Encounter Details +--------+ + + + + | Date | Type | Department | Care Team | Description | +--------+ + + + + | 03/07/ | Hospital | [facility] | Kulwinder Lima | | | 2006 | Encounter | MED CTR SLEEP | MD [address]par[address] | | | | | [place] [address] | [address] [place] | | | | | [place], [place] | [place] [address] | | | | | [address] | [phone] | | | | | [phone] | | | +--------+ + + + [...] [place] | | | | | | [place] [address] | | | | | | [phone] | | | | | | | | +--------+ + + + + | 06/12/ | Office | Cardiology | [place] | | | 2018 | Visit | | [address] | | | | | | [address] | | | | | | [place] [address] | | | | | | [phone] | | | | | | | | +--------+ + + + + documented as of this encounter Visit Diagnoses Not on filedocumented in this encounter"
--- OUTSIDE RECORDS SUMMARY | ~2019-05-20 | XMS | Encounter Summary ---
Demographics + + + | Address | [address] | | | [place] [address] | + + + | Home Phone | | + + + | Preferred Language | Unknown | + + + | Marital Status | Legally | + + + | Rastafarian Affiliation | Unknown | + + + | Race | Unknown | + + + | Ethnic Group | Unknown | + + + Author + + + | Author | [facility] | | | and [place] | + + + | Organization | [facility] | | [...] [place] | | | | | [address] | | + + + + + | Vonnie Martinez | ECON | Unknown | | + + + + + Care Team Providers + +------+ + | Care Quality Assurance Director Name | Role | Phone | [...] + + | 10/20/ | Office | [facility] | [place], | Acute sinusitis | | 2012 | Visit | PULMONARY [address] | Jessika Lewis MD | (Primary Dx); | | | | [place], | | Chronic obstructive | | | | [place] [address] | | asthma (HCC); | | | | [phone] | | Allergic rhinitis; | | | [...] She will do an extra lap around [employer] before starting her shopping every other day. She does not cough chronically, and does not produce mucous. She has not had hemoptysis. 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 Social History Main Topics Smoking status: Former Smoker -- 1.0 packs/day for 40 years Quit date: 08/04/2012 Smokeless tobacco: Never Used Alcohol Use: No Drug Use: Yes clean for 15 years, used cocaine for only 2 years Sexually Active: None Other Topics Concern None Social History Narrative Lives in [place] with her grandchildren. She is from her [...] Daily. 1 each 11 Respiratory Therapy Supplies [facility] Res Med S9 auto CPAP 5-15 cm [...] does not hear anything fro m the [employer]. She may need another sleep study. - Respiratory Therapy Supplies MISC; Res Med S9 auto CPAP 5-15 cm H2O. Heater and Humidifie r. All necessary supplies.AHI 22.8. Diagnosis Code(s)327.23. Length of Need lifetime. Please send order to [facility] [place]. Send copy of sleep study from 2005 with order. Gerd (gastroesophageal reflux disease) Well controlled on omeprazole. She was advised to call if new pulmonary symptoms were to develop. Return to clinic in 3 months, or sooner with concerns. CC: Oscaraleks Taylor Portions of this report were transcribed using voice recognition software. Every effort wa s made to ensure accuracy; however, inadvertent computerized lan administrator errors may be pre sent. documented in [...] [place] | | | | | | [place] [id number] | | | | | | [phone] | | | | | | | | +--------+ + + + + | 06/12/ | Office | Cardiology | [place] | | | 2018 | Visit | | [address] | | | | | | [address] | | | | | | [place] [address] | | | | | | [phone] | | | | | | | [...]
--- OUTSIDE RECORDS SUMMARY | ~2019-05-20 | XMS | Encounter Summary ---
Demographics + + + | Address | [address] | | | [place] [address] | + + + | Home Phone | | + + + | Preferred Language | Unknown | + + + | Marital Status | Legally | + + + | Jew Affiliation | Unknown | + + + | Race | Unknown | + + + | Ethnic Group | Unknown | + + + Author + + + | Author | [facility] | | | and [place] | + + + | Organization | [facility] | | | and [...] [place] | | | | | [address] | | + + + + + | Vonnie Martinez | ECON | Unknown | | + + + + + Care Team Providers + +------+ + | Care Treasury Management Sales Consultant Name | Role | Phone | + +------+ + | Oscar Taylor PA-C | PCP | | + +------+ + Encounter Details +--------+ + + + + | Date | Type | Department | Care Team | Description | +--------+ + + + + | 05/21/ | Orders Only | [facility] | Conversion | | | 2017 | | NEPRHOLOGY [place]IS[place] | Transaction, | | | | | [address] | Provider Unknown | | | | | [address] [place], [place] | [phone] | | | | | [address] | | | | | | [phone] | | | +--------+ + + + [...] | | | | | | [place] [address] | | | | | | [phone] | | | | | | | | +--------+ + + + + | 06/12/ | Office | Cardiology | Linda [place] | | | 2019 | Visit | | [address] | | | | | | [address] | | | | | | [place] [address] | | | | | | [phone] | | | | | | | | +--------+ + + + + documented as of this encounter Procedures + +--------+ + + + | Procedure Name | Priori | Date/Time | Associated Diagnosis | Comments | | | ty | | | | + +--------+ + + + | EXTERNAL LAB: [facility] | Routin | 05/21/2017 | | Results [...] - 1.030 | EXTERNAL | | | [place] | | | LAB | | + [...] | | | LAB | | | [place] | | | | | + + [...]
--- OUTSIDE RECORDS SUMMARY | ~2019-05-20 | XMS | Clinical Summary ---
Demographics + + + | Address | [address] | | | [place] [address] | + + + | Home Phone | | + + + | Preferred Language | Unknown | + + + | Marital Status | Unknown | + + + | Quaker Affiliation | Unknown | + + + | Race | Unknown | + + + | Ethnic Group | Unknown | + + + Author + + + | Author | [facility] [employer] (Historical as of | | | 02-04-19) | + + + | Organization | [facility] [employer] (Historical as of | | | 02-04-19) | + + + | Address | Unknown | + + + | Phone | Unavailable | + + + Support + + + + + | Name | Relationship | Address | Phone | + + + + + | Peewee Crawford | TINA | [address] | | | | | [place] | | | | | [address] | | + + + + + | Vonnie Martinez | ECON | Unknown | | + + + + + Care Team Providers + +------+ + | Care Padding Gluer Name | Role | Phone | + +------+ + | Garret Rojo | PP | | + +------+ + Allergies + [...] | Other (See Comments) | Medium | 10/18/19 | Patient doesn't | | | | | 14 | remember | + + + + + + | Tramadol | Other (See Comments) | Medium | 05/22/20 | Joint pain | | | | | 13 | | + + + + + + Current Medications + + +---------+---------+------+------+-------+ | Prescription | Sig. | Disp. | Refills | Star | End | Statu | | | | | | t | Date | s | | | | | | Date | | | + + +---------+---------+------+------+-------+ | gabapentin | Take 800 mg by mouth | | | | | Activ | | (NEURONTIN) 600 MG | 2 (two) times | | | | | e | | tablet | daily. | | | | | | + + +---------+---------+------+------+-------+ | omeprazole | Take 20 mg by mouth | | | | | Activ | | (PRILOSEC) 20 MG | every morning before | | | | | e | | capsule | breakfast. | | | | | | + + +---------+---------+------+------+-------+ | carvedilol (COREG) | Take 6.25 mg by | | | | | Activ | | 25 MG tablet | mouth 2 (two) times | | | | | e | | | daily with meals. | | | | | | + + +---------+---------+------+------+-------+ | | Take 1 tablet by | | | | | Activ | | HYDROcodone-acetamin | mouth every 6 (six) | | | | | e | | ophen (NORCO) 10-325 | hours as needed. | | | | | | | MG per tablet | | | | | | | + + +---------+---------+------+------+-------+ | insulin aspart | Inject 15 Units into | 20 mL | 11 | 04/2 | | Activ | | (NOVOLOG) 100 | the skin 3 (three) | | | 9/20 | | e | | UNIT/ML injection | times daily before | | | 14 | | | | | meals. | | | | | | + + +---------+---------+------+------+-------+ | Blood Glucose | 1 each by Does not | 1 kit | 0 | 04/2 | | Activ | | Monitoring Suppl | apply route daily. | | | 9/20 | | e | | (ACCU-CHEK MARII | | | | 14 | | | | PLUS) W/DEVICE KIT | | | | | | | + + +---------+---------+------+------+-------+ | glucose blood | 1 each by Other | 150 | 11 | 04/2 | | Activ | | (ACCU-CHEK ACTIVE | route 4 (four) times | each | | 9/20 | | e | | STRIPS) test strip | daily. Use as | | | 14 | | | | | instructed | | | | | | + + +---------+---------+------+------+-------+ | levothyroxine | 50 mcg. | | | 05/1 | | Activ | | (SYNTHROID) 50 MCG | | | | 2/20 | | e | | tablet | | | | 17 | | | + + +---------+---------+------+------+-------+ | furosemide (LASIX) | 40 mg 2 (two) times | | | 05/1 | | Activ | | 40 MG tablet | daily. | | | 01/07 | | e | | | | | | 17 | | | + + +---------+---------+------+------+-------+ | benzonatate | Take 100 mg by mouth | | | | | Activ | | (TESSALON) 100 MG | 3 (three) times | | | | | e | | capsule | daily as needed for | | | | | | | | Cough. | | | | | | + + +---------+---------+------+------+-------+ | tiZANidine | Take 4 mg by mouth 3 | | | | | Activ | | (ZANAFLEX) 4 MG | (three) times | | | | | e | | tablet | daily. | | | | | | + + +---------+---------+------+------+-------+ | insulin regular | 50 Units 2 (two) | | | 06/0 | | Activ | | (NOVOLIN R RELION) | times daily. | | | 9/20 | | e | | 100 UNIT/ML | | | | 14 | | | | injection | | | | | | | + + +---------+---------+------+------+-------+ | ferrous sulfate, | Take 1 tablet by | 180 | 3 | 09/2 | | Activ | | 65 FE, 324 (65 Fe) | mouth 2 (two) times | tablet | | 9/20 | | e | | MG EC | daily with meals. | | | 17 | | | | tabletIndications: | | | | | | | | CKD (chronic kidney | | | | | | | | disease), stage III | | | | | | | | (HCC), Normochromic | | | | | | | | normocytic anemia | | | | | | | + + +---------+---------+------+------+-------+ | potassium chloride | Take 1 tablet by | 180 | 3 | 12/0 | | Activ | | (K-DUR) 10 MEQ | mouth 2 (two) times | tablet | | 6/20 | | e | | tablet | daily. | | | 17 | | | + + +---------+---------+------+------+-------+ | ascorbic acid | Take 500 mg by mouth | | | | | Activ | | (VITAMIN C) 500 MG | daily. | | | | | e | | tablet | | | | | | | + + +---------+---------+------+------+-------+ | ADVAIR DISKUS | Inhale 1 puff into | | 11 | 08/0 | | Activ | | 250-50 MCG/DOSE | the lungs 2 (two) | | | 03/10 | | e | | | times daily. | | | 18 | | | + + +---------+---------+------+------+-------+ | traZODone | Take 100 mg by mouth | | 2 | 08/2 | | Activ | | (DESYREL) 100 MG | daily. | | | 10/08 | | e | | tablet | | | | 18 | | | + + +---------+---------+------+------+-------+ | HYSINGLA ER 40 MG | Take 1 tablet by | | 0 | 08/2 | | Activ | | T24A | mouth daily. | | | 02/07 | | e | | | | | | 18 | | | + + +---------+---------+------+------+-------+ | | Take 1 tablet by | | 0 | 08/2 | | Activ | | HYDROcodone-acetamin | mouth as needed. As | | | 01/07 | | e | | ophen (NORCO) 5-325 | needed for | | | 18 | | | | MG per tablet | breakthrough pain | | | | | | + + +---------+---------+------+------+-------+ | albuterol | Inhale 2 puffs into | | | | | Activ | | (PROVENTIL | the lungs every 4 | | | | | e | | HFA;VENTOLIN HFA) | (four) hours as | | | | | | | 108 (90 Base) | needed for Wheezing. | | | | | | | MCG/ACT inhaler | | | | | | | + + +---------+---------+------+------+-------+ | atorvastatin | Take 1 tablet by | 30 | 11 | 09/2 | | Activ | | (LIPITOR) 40 MG | mouth nightly. | tablet | | 5/20 | | e | | tablet | | | | 18 | | | + + +---------+---------+------+------+-------+ | metolazone | Take 0.5 tablets by | 90 | 3 | 11/0 | | Activ | | (ZAROXOLYN) 5 MG | mouth daily. | tablet | | 7/20 | | e | | tablet | | | | 18 | | | + + +---------+---------+------+------+-------+ | HUMIRA PEN 40 | INJECT 1 PEN SC Q | | 3 | 04/2 | | Activ | | MG/0.4ML injection | WEEK STARTING ON DAY | | | 3/20 | | e | | | 29. | | | 19 | | | + + +---------+---------+------+------+-------+ | HUMIRA | | | 0 | 04/0 | | Activ | | PEN-CD/UC/HS STARTER | | | | 4/20 | | e | | 80 MG/0.8ML PNKT | | | | 19 | | | + + +---------+---------+------+------+-------+ | allopurinol | TAKE 1 TABLET BY | 90 | 0 | 06/1 | | Activ | | (ZYLOPRIM) 100 MG | MOUTH EVERY DAY | tablet | | 0/20 | | e | | tabletIndications: | | | | 19 | | | | Stage 3 chronic | | | | | | | | kidney disease | | | | | | | | (HCC), Hyperuricemia | | | | | | | + + +---------+---------+------+------+-------+ | magnesium chloride | Take 2 tablets by | 180 | 3 | | | Expir | | (MAG64) 64 mg EC | mouth daily. | tablet | | 01/07 | 01/07 | ed | | tablet | | | | 18 | 19 | | + + +---------+---------+------+------+-------+ Active Problems + + + | Problem | Noted Date | + + + | Hepatitis C | 10/31/2018 | + + + | Hidradenitis | 10/31/2018 | + + + | Iron deficiency anemia | 08/25/2017 | + + + | Hyperuricemia | 05/26/2017 | + + + | Generalized edema | 05/26/2017 | + + + | Abnormal weight gain | 05/26/2017 | + + + | Normochromic normocytic anemia | 03/19/2017 | + + + | Diabetic nephropathy associated with type 2 diabetes mellitus | 11/23/2016 | | (HCC) | | + + + | CKD (chronic kidney disease), stage III | 2013 | + + + | Essential hypertension, benign | 2013 | + + + | Diabetes mellitus, type 2 (HCC) | 2013 | + + + | Incontinence of urine | 2013 | + + + | COPD (chronic obstructive pulmonary disease) | 2013 | + + + | Obesity | 2013 | + + + | Depression | 2013 | + + + | GERD (gastroesophageal reflux disease) | 2013 | + + + | Diabetic neuropathy (HCC) | 2013 | + + + | Proteinuria | 2013 | + + + | Diabetic retinopathy (HCC) | 2013 | + + + | Vitamin D deficiency | 2013 | + + + | CHEL (obstructive sleep apnea) | 08/17/2012 | + + + | Peripheral neuropathy | 08/17/2012 | + + + | Hypertension | 06/21/2008 | + + + | Chronic kidney disease | | + + + + + | Overview: stage III (Diabetic Nephropathy) with Proteinuria | + + + +---+ | COPD (chronic obstructive pulmonary disease) (HCC) | | + +---+ + + | Overview: Asthma and Emphysema - Dr. Jessika Kruger | + + + +---+ | Morbid obesity with BMI of 50.0-59.9, adult (HCC) | | + +---+ Family History + + +------+ + | Medical History | Relation | Name | Comments | + + +------+ + | Cancer | Brother | | thyroid CA | + + +------+ + | Thyroid disease | Daughter | | | + + +------+ + | Cancer | Father | | stomach cancer | + + +------+ + | Heart [...] + | Cirrhosis | Mother | | | + + +------+ + | Hypertension | Mother | | | + + +------+ + | Stroke | Mother | | multiple TIAs | + + +------+ + | Cancer [...] + | Maternal Grandfather | | | [place] | | | | (Age | | | | | 62) | | + +------+ + + | Maternal Grandmother | | | [place] | | | | (Age | | [...] Alive | | + +------+ + + Social [...] | | | + +---+---+---+ + + | Tobacco Cessation: Counseling Given: No | + + + + +---------+ + | Alcohol Use | Drinks/We | oz/Week | Comments | | | ek | | | + + +---------+ + | No | | | | + + +---------+ + + + + | Sex Assigned at | Date Recorded | | | | + + + | Not on file | | + + + Last Filed Vital Signs + + + + | Vital Sign | Reading | Time Taken | + + + + | Blood Pressure | 142/70 | 11/09/2018 1:06 PM PDT | + + + + | Pulse | 59 | 11/09/2018 1:06 PM PDT | + + + + | Temperature | 37.4 C (99.3 F) | 12/29/2017 1:25 PM PDT | + + + + | Respiratory Rate | 14 | 10/13/2013 2:30 PM PDT | + + + + | Oxygen Saturation | 98% | 11/09/2018 1:06 PM PDT | + + + + | Inhaled Oxygen | - | - | | Concentration | | | + + + + | Weight | 151.8 kg (334 lb 9.6 | 11/09/2018 1:06 PM PDT | | | oz) | | + + + + | Height | 162.6 cm (5' 4") | 11/09/2018 1:06 PM PDT | + + + + | Body Mass Index | 57.43 | 11/09/2018 1:06 PM PDT | + + + + Plan of Treatment + + + + + | Health Maintenance | Due Date | Last Done | Comments | + + + + + | Diabetic Eye Exam | | | | | | 4 | | | + + + + + | Diabetic Foot Exam | | | | | | 4 | | | + + + + + | Hemoglobin A1c | | | | | | 4 | | | + + + + + | Vaccine: | | | | | Dtap/Tdap/Td (1 - | 3 | | | | Tdap) | | | | + + + + + | Vaccine: | | | | | Pneumococcal 19-64 | 3 | | | | (PPSV23 only) Medium | | | | | Risk (1 of 1 - | | | | | PPSV23) | | | | + + + + + | Cervical Cancer | | | | | Screening (Pap) | 4 | | | + + + + + | Breast Cancer | | | | | Screening | 4 | | | | (Mammogram) | | | | + + + + + | Colon Cancer | | | | | Screening [...] | + + + + + | Statin Therapy | | | | | (optimal intensity) | 6 | | | + + + + + | Vaccine: Influenza | | | | | (#1) | 9 | | | + + + + + Results Not on filefrom Last 3 Months Insurance + +--------+ +------+-------+ + | Payer | Benefi | Subscriber | Type | Phone | Address | | | t Plan | ID | | | | | | / | | | | | | | Group | | | | | + +--------+ +------+-------+ + | MEDICARE | MEDICA | [id number] | | | [address] | | | RE | | | | [place] [address] | | | IP-OP | | | | | + +--------+ +------+-------+ + | [employer] | UNITED | [id number] | | | | | | | | | | | | | HEALTH | | | | | | | CARE - | | | | | | | AARP | | | | | + +--------+ +------+-------+ + + +--------+ +--------+ + + | Guarantor Name | Accoun | Relation to | Date | Phone | Billing Address | | | t Type | Patient | of | | | | | | | | | | + +--------+ +--------+ + + | MODESTA CRAWFORD | Person | Self | [birth year] | Home: | [address] | | al/Fam | | 1955 | [phone] | [place] | | | [place]a | | | [address] | [address] | + +--------+ +--------+ + +
--- OUTSIDE RECORDS SUMMARY | ~2019-05-20 | XMS | Encounter Summary ---
Demographics + + + | Address | [address] | | | [place] [address] | + + + | Home Phone | | + + + | Preferred Language | Unknown | + + + | Marital Status | Legally | + + + | Anglican Affiliation | Unknown | + + + | Race | Unknown | + + + | Ethnic Group | Unknown | + + + Author + + + | Author | [facility] | | | and [place] | + + + | Organization | [facility] | | [...] [place] | | | | | [address] | | + + + + + | Vonnie Martinez | ECON | Unknown | | + + + + + Care Team Providers + +------+ + | Care Hoop Puncher Name | Role | Phone | + +------+ + PCP | Unavailable | + +------+ + Encounter Details +--------+ + + + + | Date | Type | Department | Care Team | Description | +--------+ + + + + | 03/07/ | Hospital | [facility] | Kulwinder Lima | | | 2006 | Encounter | MED CTR SLEEP | MD Ampar[address] | | | | | [place] [address] | [address] [place] | | | | | [place], [place] | [place] [address] | | | | | [address] | [phone] | | | | | [phone] | | | +--------+ + + + [...] [place] | | | | | | [place] [address] | | | | | | [phone] | | | | | | | | +--------+ + + + + | 06/12/ | Office | Cardiology | Linda [place] | | | 2018 | Visit | | [address] | | | | | | [address] | | | | | | [place] [address] | | | | | | [phone] | | | | | | | | +--------+ + + + + documented as of this encounter Visit Diagnoses Not on filedocumented in this encounter"
--- OUTSIDE RECORDS SUMMARY | ~2019-05-20 | XMS | Encounter Summary ---
Demographics + + + | Address | [address] | | | [place] [address] | + + + | Home Phone | | + + + | Preferred Language | Unknown | + + + | Marital Status | Legally | + + + | Druze Affiliation | Unknown | + + + | Race | Unknown | + + + | Ethnic Group | Unknown | + + + Author + + + | Author | [facility] | | | and [place] | + + + | Organization | [facility] | | | [...] [place] | | | | | [address] | | + + + + + | Vonnie Martinez | ECON | Unknown | | + + + + + Care Team Providers + +------+ + | Care Municipal Clerk Name | Role | Phone | [...] [address] | | | | | [place], | [place], [place] | | | | | [place] [address] | [address] | | | | | [phone] | | | +--------+ + + + [...] | | | | | | [place] [address] | | | | | | [phone] | | | | | | | | +--------+ + + + + | 06/12/ | Office | Cardiology | Linda [place] | | | 2019 | Visit | | [address] | | | | | | [address] | | | | | | [place] [address] | | | | | | [phone] | | | | | | | | +--------+ + + + + documented as of this encounter Visit Diagnoses Not on filedocumented in this encounter"
--- OUTSIDE RECORDS SUMMARY | ~2019-05-20 | XMS | Encounter Summary ---
Demographics + + + | Address | [address] | | | [place] [address] | + + + | Home Phone [...] [place] | | | | | [address] | | + + + + + | Vonnie Martinez | ECON | Unknown | | + + + + + Care Team Providers + +------+ + | Care Bone Density Technician Name | Role | Phone | [...] [address] | Jessika Lewis MD | ([facility]) (Primary Dx); | | | | [place], | | COPD (chronic | | | | [place] [address] | | obstructive | | | | [phone] | | pulmonary disease) | | | | | | ([facility]); CHEL | | | | [...] | | | | | type 2 ([facility]); RLS | | | | [...] [place], | | | | | | [place] [address] | | | | | | [phone] | | | | | | | | +--------+ + + + + | 06/12/ | Office | Cardiology | Linda [place] | | | 2019 | Visit | | [address] | | | | | | [place] [address] | | | | | | [place] [address] | | | | | | [phone] | | | | | | | [...]
--- OUTSIDE RECORDS SUMMARY | ~2019-05-20 | XMS | Encounter Summary ---
Demographics + + + | Address | [address] | | | [place] [address] | + + + | Home Phone | | + + + | Preferred Language | Unknown | + + + | Marital Status | Legally | + + + | Yazidi Affiliation | Unknown | + + + | Race | Unknown | + + + | Ethnic Group | Unknown | + + + Author + + + | Author | [facility] | | | and [place] | + + + | Organization | [facility] | | | and [...] [place] | | | | | [address] | | + + + + + | Vonnie Martinez | ECON | Unknown | | + + + + + Care Team Providers + +------+ + | Care Firmware Architect Name | Role | Phone | + +------+ + | Oscar Taylor PA-C | PCP | | + +------+ + Encounter Details +--------+ + + + + | Date | Type | Department | Care Team | Description | +--------+ + + + + | 11/02/ | Orders Only | [facility] | Conversion | | | 2019 | | NEPHROLOGY [place] | Transaction, | | | | | [address] | Provider Unknown | | | | | [address] [place] | | | | | | [address] | (Fax) | | | | | [phone] | | | +--------+ + + + [...] | | | | | | [place] [address] | | | | | | [phone] | | | | | | | | +--------+ + + + + | 06/12/ | Office | Cardiology | Bridgette Linda | | | 2019 | Visit | | [address] | | | | | | [place] [address] | | | | | | [place] [address] | | | | | | [phone] | | | | | | | [...]
--- OUTSIDE RECORDS SUMMARY | ~2019-05-20 | XMS | Encounter Summary ---
Demographics + + + | Address | [address] | | | [place] [address] | + + + | Home Phone | | + + + | Preferred Language | Unknown | + + + | Marital Status | Legally | + + + | Confucianism Affiliation | Unknown | + + + | Race | Unknown | + + + | Ethnic Group | Unknown | + + + Author + + + | Author | [facility] | | | and [place] | + + + | Organization | [facility] | | | [...] [place] | | | | | [address] | | + + + + + | Vonnie Martinez | ECON | Unknown | | + + + + + Care Team Providers + +------+ + | Care Supervisor Refractory Products Name | Role | Phone | + [...] | | [address] | [place], | | | | | [place], [place] | [place] [address] | | | | | [address] | [phone] | | | | | [phone] | | | +--------+ + + + [...] [place], | | | | | | [place] [address] | | | | | | [phone] | | | | | | | | +--------+ + + + + | 06/12/ | Office | Cardiology | Linda [place] | | | 2019 | Visit | | [address] | | | | | | [address] | | | | | | [place] [address] | | | | | | [phone] | | | | | | | [...] | | | RV S': 0.17 m/s Tar Heater Operator: Authenticated by: LULA | | | MD [...] cmLVPWd: 1.04 | | cmLVOT Area: 3.66 [id number] Diam: 2.16 cm%FS: 36.17 %EF(Teich): 65.42 %ESV(Teich): [...] (A-L): 23.84 ml/m2LAAs A2C: | | 18.64 [id number] A-L A2C: 56.14 mlLALs A2C: 5.25 cmLAAs A4C: 17.78 [id number] A-L A4C: | | 53.67 mlLALs A4C: 5.00 cmRAAs: 17.49 [id number] A-L: 52.33 mlRAESV MOD: 50.61 | | mlRALs: 4.96 cmTAPSE: 3.12 cmAV maxP.18 mmHgAV meanP.88 mmHgAV Vmax: | | 1.81 m/Arianna Vmean: 1.17 m/Arianna VTI: 33.78 cmAVA Vmax: 2.36 cm2AVA (VTI): 2.47 | | zn2FRGR Vmax: 0.00 cm2/m2AVAI (VTI): 0.00 cm2/m2LVOT maxP.47 mmHgLVOT meanPG: | | 2.68 mmHgLVSI Dopp: 35.40 ml/m2LVSV Dopp: 83.55 mlLVOT Vmax: 1.16 m/sLVOT Vmean: | | 0.74 m/sLVOT VTI: 22.77 cmMV A Robles: 1.04 m/sMV DecT: 277.62 msMV E Robles: 0.90 | | m/sMV E/A Ratio: 0.86MV PHT: 80.51 msMVA By PHT: 2.73 uv7Gvnaje e': 0.05 | | m/sSeptal E/e': 17.90Lateral e': 0.05 m/sLateral E/e': 15.62RV S': 0.17 m/s | | Tar Heater Operator:Authenticated by: Artemio DOWNING Date/Time: 08-18-2017 17:9:28 | [...] cm | |ANTHONY Vmax: 2.36 cm2 | |NATHONY (VTI): 2.47 cm2 | |AVAI Vmax: 0.00 [...] |RV S': 0.17 m/s | | | |Tar Heater Operator: | |Authenticated by: LULA GAXIOLA MD | [...]
--- OUTSIDE RECORDS SUMMARY | ~2019-05-20 | XMS | Encounter Summary ---
Demographics + + + | Address | [address] | | | [place] [address] | + + + | Home Phone [...] Author + + + | Author | [facility] | | | and [place] | + + + | Organization | [facility] | | [...] [place] | | | | | [address] | | + + + + + | Vonnie Martinez | ECON | Unknown | | + + + + + Care Team Providers + +------+ + | Care Preschool Aide Name | Role | Phone | + +------+ + | Oscar Taylor PA-C | PCP | | + +------+ + Encounter Details +--------+ + + + + | Date | Type | Department | Care Team | Description | +--------+ + + + + | 11/02/ | Orders Only | [facility] | Phan Jones, | | | 2018 | | [facility] | [address] | | | | | [address] [place] | [address] | | | | | [address] [facility] [address] [facility] [place] | [place], [place] | | | | | [address] | [address] | | | | | [phone] | [phone] | | | | | | | [...] [place], | | | | | | [place] [address] | | | | | | [phone] | | | | | | | | +--------+ + + + + | 06/12/ | Office | Cardiology | BridgetteLinda | | | 2018 | Visit | | [address] | | | | | | [address] [address] | | | | | | [place] [address] | | | | | | [phone] | | | | | | | [...] | | | LAB | | | [facility] | | | | | + +---------+ [...]
--- OUTSIDE RECORDS SUMMARY | ~2019-05-20 | XMS | Encounter Summary ---
Demographics + + + | Address | [address] | | | [place] [address] | + + + | Home Phone | | + + + | Preferred Language | Unknown | + + + | Marital Status | | + + + | Roman Catholic Affiliation | Unknown | + + + | Race | White | + + + | Ethnic Group | Not or | + + + Author + + + | Author | [facility] | + + + | Organization | [facility] | + + + | Address | Unknown | + + + | Phone | Unavailable | + + + Support + + +---------+ + | Name | Relationship | Address | Phone | + + +---------+ + | Don Watson | ECON | Unknown | | + + +---------+ + Care Team Providers + +------+ + | Care Box Icer Name | Role | Phone | + +------+ + | Garret Rojo NP | PCP | | + +------+ + Encounter Details +--------+ + + + + | Date | Type | Department | Care Team | Description | +--------+ + + + + | 08/26/ | Abstract | [facility] | Clinic, Surgery | | | 2016 | | [place] [facility] [address] | | | | | | [address] | | | | | | Mailcode: [place] | | | | | | [facility] | | | | | | [facility], [address] | | | | | | [place], [place] | | | | | | [address] | | | | | | [phone] | | | +--------+ + + + [...]
--- OUTSIDE RECORDS SUMMARY | ~2019-05-20 | XMS | Encounter Summary ---
Demographics + + + | Address | [address] | | | [place] [address] | + + + | Home Phone [...] + + + | Author | [facility] | | | and [place] | + + + | Organization | [facility] | | [...] [place] | | | | | [address] | | + + + + + | Vonnie Martinez | ECON | Unknown | | + + + + + Care Team Providers + +------+ + | Care Mail List Processor Name | Role | Phone | + [...] | | | | OFFICE | [place] [address] | | | | | | VISIT | Phone: | | | | | | REGULAR | [phone] | | | | | | | Fax: | | | | | | | [phone] | | +--------+--------+ + + + + [...] | (Primary Dx); | | | | [place] [address] | | Chronic obstructive | | | | [phone] | | asthma | +--------+---------+ + + [...] you can pick this up at [facility]. I would call the [facility] to make an appointment to pick it up so they can show you how to use it. They can also fit y ou to a mask. I will then see you back in about 2 weeks with a download from the machine. To get the download, you will take the machine or the chip from the back of the machine in to the [facility] and they can download information from the [...] or other sinus rinse products at a [facility] (such as GoldenSUN Sinus Rinse Kit). 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 Social History Main Topics Smoking status: Former Smoker -- 1.0 packs/day for 40 years Quit date: 08/04/2012 Smokeless tobacco: Never Used Alcohol Use: No Drug Use: Yes Comment: clean for 15 years, used cocaine for only 2 years Sexually Active: None Other Topics Concern None Social History Narrative Lives in [place] with her grandchildren. She is from her [...] SYRINGE 1ML/31G 31G X 5/16" 1 ML [facility] Respiratory Therapy Supplies [facility] Res Med S9 auto CPAP 5-15 cm H2O. Heater and Humidifi er. All necessary supplies.AHI 22.8. Diagnosis Code(s)327.23. Length of Need lifetime. Gian wall send order to [facility] [place]. Send copy of sleep study from 2005 [...] a financial issu e). Prescribed auto CPAP, [id number] as a starting point as that is [...] daughter with greater than 50% spent in counseling department chair ing and coordination of care regarding sleep [...] made to ensure accuracy; however, inadvertent computerized fractionating still operator errors may be pre sent. Electronically signed [...] | | | | | | [place] [address] | | | | | | [phone] | | | | | | | | +--------+ + + + + | 06/12/ | Office | Cardiology | Linda Angeles | | | 2019 | Visit | | [address] | | | | | | [address] | | | | | | [place] [address] | | | | | | [phone] | | | | | | | [...]
--- OUTSIDE RECORDS SUMMARY | ~2019-05-20 | XMS | Encounter Summary ---
Demographics + + + | Address | [address] | | | [place] [address] | + + + | Home Phone | | + + + | Preferred Language | Unknown | + + + | Marital Status | Legally | + + + | Latter-Day Affiliation | Unknown | + + + | Race | Unknown | + + + | Ethnic Group | Unknown | + + + Author + + + | Author | [facility] | | | and [place] | + + + | Organization | [facility] | | | [...] [place] | | | | | [address] | | + + + + + | Vonnie Martinez | ECON | Unknown | | + + + + + Care Team Providers + +------+ + | Care Teletype Telegrapher Name | Role | Phone | + +------+ + | Oscar Taylor PA-C | PCP | | + +------+ + Encounter Details +--------+ + + + + | Date | Type | Department | Care Team | Description | +--------+ + + + + | 03/04/ | Orders Only | [facility] | Conversion | | | 2017 | | NEPHROLOGY [place]IE | Transaction, | | | | | [address] | Provider Unknown | | | | | [address] [place] | | | | | | [address] | (Fax) | | | | | [phone] | | | +--------+ + + + [...] | | | | | | [place] [address] | | | | | | [phone] | | | | | | | | +--------+ + + + + | 06/12/ | Office | Cardiology | Bridgette Linda | | | 2019 | Visit | | [address] | | | | | | [address] | | | | | | [place] [address] | | | | | | [phone] | | | | | | | [...]
--- OUTSIDE RECORDS SUMMARY | ~2019-05-20 | XMS | Encounter Summary ---
Demographics + + + | Address | [address] | | | [place] [address] | + + + | Home Phone | | + + + | Preferred Language | Unknown | + + + | Marital Status | Legally | + + + | Caodaism Affiliation | Unknown | + + + | Race | Unknown | + + + | Ethnic Group | Unknown | + + + Author + + + | Author | [facility] | | | and [place] | + + + | Organization | [facility] | | [...] [place] | | | | | [address] | | + + + + + | Vonnie Martinez | ECON | Unknown | | + + + + + Care Team Providers + +------+ + | Care Senior Application Software Engineer Name | Role | Phone | [...] 2017 | | [address] | Amos PREPRESS TECHNICIAN [address] | | | | [address] | [place], | | | | | [place] | [address] [place], | | | | | [address] | [place] [address] | | | | | [phone] | [phone] | | | | | | | [...] | | | | | | [place] [address] | | | | | | [phone] | | | | | | | | +--------+ + + + + | 06/12/ | Office | Cardiology | Linda Angeles | | | 2019 | Visit | | [address] | | | | | | [address] | | | | | | [place] [address] | | | | | | [phone] | | | | | | | [...] | | | Doppler was perfomed at [facility]. Study: Definity | | | contrast agent [...] m/s Lateral E/e': 15.47 | | | Director Of Informatics: WILFRED Authenticated by: Sabas Gaxiola Report | [...] and color flow Doppler was perfomed at [facility].Study: Definity | | contrast agent was used [...] cmLVPWd: 1.05 cmLVOT Area: 3.85 | | [id number] Diam: 2.21 cm%FS: 30.62 %EF(Teich): 58.20 %ESV(Teich): [...] A4C: 6.38 cmLAAs A4C: | | 16.81 [id number] A-L A4C: 50.38 mlLALs A4C: 4.76 cmRAAs: 13.17 [id number] A-L: 33.85 | | mlRAESV MOD: 31.37 mlRALs: 4.35 cmAV maxP.73 mmHgAV meanP.53 mmHgAV | | Vmax: 1.78 m/Arianna Vmean: 1.06 m/Arianna VTI: 25.77 cmAVA Vmax: 2.77 cm2AVA (VTI): | | 2.88 [id number] Vmax: 0.00 cm2/m2AVAI (VTI): 0.00 cm2/m2LVOT maxP.59 mmHgLVOT | | meanP.01 mmHgLVSI Dopp: 31.91 ml/m2LVSV Dopp: 74.36 mlLVOT Vmax: 1.28 | | m/sLVOT Vmean: 0.79 m/sLVOT VTI: 19.28 cmMV A Robles: 0.95 m/sMV DecT: 194.50 msMV | | E Robles: 0.72 m/sMV E/A Ratio: 0.77MV PHT: 56.40 msMVA By PHT: 3.90 ii3Rerwsi e': | | 0.07 m/sSeptal E/e': 9.08Lateral e': 0.04 m/sLateral E/e': 15.47 Director Of Informatics: | | DHAuthenticated by: Sabas Vila Date/Time: [...] | |Lateral E/e': 15.47 | | | |Director Of Informatics: | |Authenticated by: Sabas Gaxiola | |Report [...]
--- OUTSIDE RECORDS SUMMARY | ~2019-05-20 | XMS | Encounter Summary ---
Demographics + + + | Address | [address] | | | [place] [address] | + + + | Home Phone | | + + + | Preferred Language | Unknown | + + + | Marital Status | Legally | + + + | Advent Affiliation [...] [place] | | | | | [address] | | + + + + + | Vonnie Martinez | ECON | Unknown | | + + + + + Care Team Providers + +------+ + | Care Wallpaper Remover Steam Name | Role | Phone | + +------+ + | Oscar Taylor PA-C | PCP | | + +------+ + Encounter Details +--------+ + + + + | Date | Type | Department | Care Team | Description | +--------+ + + + + | 04/26/ | Orders Only | [facility] | Phan Jones, | | | 2017 | | NEPRHOLOGY [place] | BULK COOLER INSTALLER [address] | | | | | [address] | [address] [address] | | | | | [address] [place], [place] | [facility] [place] | | | | | [address] | [address] | | | | | [phone] | [phone] | | | | | | | [...] | | | | | | [place] [address] | | | | | | [phone] | | | | | | | | +--------+ + + + + | 06/12/ | Office | Cardiology | Linda Angeles | | | 2019 | Visit | | [address] | | | | | | [address] | | | | | | [place] [address] | | | | | | [phone] | | | | | | | | +--------+ + + + + documented as of this encounter Procedures + +--------+ + + + | Procedure Name | Priori | Date/Time | Associated Diagnosis | Comments | | | ty | | | | + +--------+ + + + | EXTERNAL LAB: WILL | Routin | 04/26/2018 | | Results [...] | | | LAB | | | [place] | | | | | + + [...]
--- OUTSIDE RECORDS SUMMARY | ~2019-05-20 | XMS | Encounter Summary ---
Demographics + + + | Address | [address] | | | [place] [address] | + + + | Home Phone | | + + + | Preferred Language | Unknown | + + + | Marital Status | Legally | + + + | Gnosticist Affiliation | Unknown | + + + | Race | Unknown | + + + | Ethnic Group | Unknown | + + + Author + + + | Author | [facility] | | | and [place] | + + + | Organization | [facility] | | | [...] [place] | | | | | [address] | | + + + + + | Vonnie Martinez | ECON | Unknown | | + + + + + Care Team Providers + +------+ + | Care Byproducts Supervisor Name | Role | Phone | + +------+ + | Oscar Taylor PA-C | PCP | | + +------+ + Encounter Details +--------+ + + + + | Date | Type | Department | Care Team | Description | +--------+ + + + + | 11/02/ | Orders Only | [facility] | Conversion | | | 2019 | | NEPHROLOGY CE[place]IE | Transaction, | | | | | [address] | Provider Unknown | | | | | [address] | | | | | | [address] | (Fax) | | | | | [phone] | | | +--------+ + + + [...] | | | | | | [place] [address] | | | | | | [phone] | | | | | | | | +--------+ + + + + | 06/12/ | Office | Cardiology | Bridgette Linda | | | 2019 | Visit | | [address] | | | | | | [address] | | | | | | [place] [address] | | | | | | [phone] | | | | | | | [...]
--- OUTSIDE RECORDS SUMMARY | ~2019-05-20 | XMS | Encounter Summary ---
Demographics + + + | Address | [address] | | | [place] [address] | + + + | Home Phone | | + + + | Preferred Language | Unknown | + + + | Marital Status | Legally | + + + | Restorationism Affiliation | Unknown | + + + | Race | Unknown | + + + | Ethnic Group | Unknown | + + + Author + + + | Author | [facility] | | | and [place] | + + + | Organization | [facility] | | | [...] [place] | | | | | [address] | | + + + + + | Vonnie Martinez | ECON | Unknown | | + + + + + Care Team Providers + +------+ + | Care Relations Manager Name | Role | Phone | + +------+ + | Oscar Taylor PA-C | PCP | | + +------+ + Encounter Details +--------+ + + + + | Date | Type | Department | Care Team | Description | +--------+ + + + + | 03/04/ | Orders Only | [facility] | Jeremiah Mnedoza MD | | | 2017 | | NEPHROLOGY [place] | [address] [place] | | | | | [address] [place] | [address] [place], [place] | | | | | [address] [facility] [place] | [address] | | | | | [address] | | | | | | [phone] | | | +--------+ + + + [...] | | | | | | [place] [address] | | | | | | [phone] | | | | | | | | +--------+ + + + + | 06/12/ | Office | Cardiology | Linda [place] | | | 2019 | Visit | | [address] | | | | | | [address] | | | | | | [place] [address] | | | | | | [phone] | | | | | | | | +--------+ + + + + documented as of this encounter Procedures + +--------+ + + + | Procedure Name | Priori | Date/Time | Associated Diagnosis | Comments | | | ty | | | | + +--------+ + + + | EXTERNAL LAB: [facility] | Routin | 03/04/2017 | | Results [...] | | | LAB | | | [place] | | | | | + + [...]
--- OUTSIDE RECORDS SUMMARY | ~2019-05-20 | XMS | Encounter Summary ---
Demographics + + + | Address | [address] | | | [place] [address] | + + + | Home Phone [...] [place] | | | | | [address] | | + + + + + | Vonnie Martinez | ECON | Unknown | | + + + + + Care Team Providers + +------+ + | Care Industrial Technologist Name | Role | Phone | + [...] | | (obstructive | Jessika B, | [place] | | | | | sleep | MD [address] | [place], | | | | | apnea) | [place] [address] | [place] [address] | | | | | Procedures | LUCIA [place]ERS, | Phone: | | | | | [place] | [place] [address] | [phone] | | | | | 6/>YRS SLEEP | | Fax: | | | | | 4/> ADDL | | [phone] | | | | | FAUSTO ATTND | | | | | | | NPSG | | | +--------+ + + + + + Encounter Details +--------+ + + + + | Date | Type | Department | Care Team | Description | +--------+ + + + + | 11/06/ | Hospital | [facility] | Offenstein, | CHEL (obstructive | | 2013 | Encounter | [facility] SLE[facility] | Jessika Lewis MD | sleep apnea) | | | | [address] [place] | | | | | | [place] | | | | | | [address] | | | | | | [phone] | | | +--------+ + + + [...] | | | | | | [place] [address] | | | | | | [phone] | | | | | | | | +--------+ + + + + | 06/12/ | Office | Cardiology | Linda [place] | | | 2019 | Visit | | [address] | | | | | | [address] | | | | | | [place] [address] | | | | | | [phone] | | | | | | | [...]
--- OUTSIDE RECORDS SUMMARY | ~2019-05-20 | XMS | Encounter Summary ---
Demographics + + + | Address | [address] | | | [place] [address] | + + + | Home Phone | | + + + | Preferred Language | Unknown | + + + | Marital Status | Legally | + + + | Cheondoism Affiliation | Unknown | + + + | Race | Unknown | + + + | Ethnic Group | Unknown | + + + Author + + + | Author | [facility] | | | and [place] | + + + | Organization | [facility] | | | and [place] | + [...] [place] | | | | | [address] | | + + + + + | Vonnie Martinez | ECON | Unknown | | + + + + + Care Team Providers + +------+ + | Care Kitchen Mechanic Name | Role | Phone | + +------+ + | Oscar Taylor PA-C | PCP | | + +------+ + Encounter Details +--------+ + + + + | Date | Type | Department | Care Team | Description | +--------+ + + + + | 05/21/ | Orders Only | [facility] | Conversion | | | 2017 | | NEPRHOLOGY [place] | Transaction, | | | | | [address] | Provider Unknown | | | | | [address] [place], [place] | [phone] | | | | | [address] | | | | | | [phone] | | | +--------+ + + + [...] | | | | | | [place] [address] | | | | | | [phone] | | | | | | | | +--------+ + + + + | 06/12/ | Office | Cardiology | Linda Angeles | | | 2019 | Visit | | [address] | | | | | | [address] | | | | | | [place] [address] | | | | | | [phone] | | | | | | | [...] - 1.030 | EXTERNAL | | | [place] | | | LAB | | + [...] | | | LAB | | | [place] | | | | | + + [...]
--- OUTSIDE RECORDS SUMMARY | ~2019-05-20 | XMS | Encounter Summary ---
Demographics + + + | Address | [address] | | | [place] [address] | + + + | Home Phone [...] [place] | | | | | [address] | | + + + + + | Vonnie Martinez | ECON | Unknown | | + + + + + Care Team Providers + +------+ + | Care Manager Medical Affairs Name | Role | Phone | + +------+ + | Oscar Taylor PA-C | PCP | | + +------+ + Encounter Details +--------+ + + + + | Date | Type | Department | Care Team | Description | +--------+ + + + + | 04/26/ | Orders Only | [facility] | Phan Jones, | | | 2017 | | NEPRHOLOGY [place] | DTP OPERATOR [address] | | | | | [address] | [address] | | | | | [address] [place], [place] | [facility] [place] | | | | | [address] | [address] | | | | | [phone] | [phone] | | | | | | | [...] | | | | | | [place] [address] | | | | | | [phone] | | | | | | | | +--------+ + + + + | 06/12/ | Office | Cardiology | Linda Angeles | | | 2019 | Visit | | [address] | | | | | | [address] | | | | | | [place] [address] | | | | | | [phone] | | | | | | | [...] | | | LAB | | | [place] | | | | | + + [...]
--- OUTSIDE RECORDS SUMMARY | ~2019-05-20 | XMS | Encounter Summary ---
Demographics + + + | Address | [address] | | | [place] [address] | + + + | Home Phone | | + + + | Preferred Language | Unknown | + + + | Marital Status | Legally | + + + | Gnosticism Affiliation | Unknown | + + + [...] [place] | | | | | [address] | | + + + + + | Vonnie Martinez | ECON | Unknown | | + + + + + Care Team Providers + +------+ + | Care Carburetor Expert Name | Role | Phone | + [...] Description | +--------+--------+ + + + | 03/02/ | Refill | [facility] | Phan Jones, | Medication Refill | | 2019 | | NEPHROLOGY [place] | CHASTITY [address] | | | | | [address] [facility] | [address] | | | | | [place] | [place] | | | | | [address] | [address] | | | | | [phone] | [phone] | | | | | | | | +--------+--------+ + + + [...] | | | | | | [place] [address] | | | | | | [phone] | | | | | | | | +--------+ + + + + | 06/12/ | Office | Cardiology | Linda [place] | | | 2019 | Visit | | [address] | | | | | | [address] | | | | | | [place] [address] | | | | | | [phone] | | | | | | | | +--------+ + + + + documented as of this encounter Visit Diagnoses Not on filedocumented in this encounter"
--- OUTSIDE RECORDS SUMMARY | ~2019-05-20 | XMS | Encounter Summary ---
Demographics + + + | Address | [address] | | | [place] [address] | + + + | Home Phone | | + + + | Preferred Language | Unknown | + + + | Marital Status | Legally | + + + | Adventism Affiliation | Unknown | + + + | Race | Unknown | + + + | Ethnic Group | Unknown | + + + Author + + + | Author | [facility] | | | and [place] | + + + | Organization | [facility] | | | [...] [place] | | | | | [address] | | + + + + + | Vonnie Martinez | ECON | Unknown | | + + + + + Care Team Providers + +------+ + | Care Health Unit Coordinator Name | Role | Phone | + +------+ + | Oscar Taylor PA-C | PCP | | + +------+ + Encounter Details +--------+ + + + + | Date | Type | Department | Care Team | Description | +--------+ + + + + | 04/26/ | Orders Only | [facility] | Phan Jones, | | | 2017 | | NEPRHOLOGY [place] | BOW MAKING MACHINE OPERATOR [address] | | | | | [address] | [address] | | | | | [address] [place], [place] | [facility] [place] | | | | | [address] | [address] | | | | | [phone] | [phone] | | | | | | | [...] [place], | | | | | | [place] [address] | | | | | | [phone] | | | | | | | | +--------+ + + + + | 06/12/ | Office | Cardiology | Linda [place] | | | 2019 | Visit | | [address] | | | | | | [address] | | | | | | [place] [address] | | | | | | [phone] | | | | | | | [...]
--- OUTSIDE RECORDS SUMMARY | ~2019-05-20 | XMS | Encounter Summary ---
Demographics + + + | Address | [address] | | | [place] [address] | + + + | Home Phone [...] [place] | | | | | [address] | | + + + + + | Vonnie Martinez | ECON | Unknown | | + + + + + Care Team Providers + +------+ + | Care Supervisor Of Operations Name | Role | Phone | [...] + + | 03/13/ | Refill | [facility] | Sabas Gaxiola, | Medication Refill | | 2019 | | CARDIOLOGY [place] | [address] | | | | | [address] | [address] [facility], | | | | | [place], [place] | [place] [address] | | | | | [address] | [phone] | | | | | [phone] | | | +--------+--------+ + + + [...] | | | | | | [place] [address] | | | | | | [phone] | | | | | | | | +--------+ + + + + | 06/12/ | Office | Cardiology | Linda [place] | | | 2018 | Visit | | [address] | | | | | | [address] | | | | | | [place] [address] | | | | | | [phone] | | | | | | | | +--------+ + + + + documented as of this encounter Visit Diagnoses Not on filedocumented in this encounter"
--- OUTSIDE RECORDS SUMMARY | ~2019-05-20 | XMS | Encounter Summary ---
Demographics + + + | Address | [address] | | | [place] [address] | + + + | Home Phone | | + + + | Preferred Language | Unknown | + + + | Marital Status | Legally | + + + | Congregation Affiliation | Unknown | + + + [...] [place] | | | | | [address] | | + + + + + | Vonnie Martinez | ECON | Unknown | | + + + + + Care Team Providers + +------+ + | Care Administrative Operations Coordinator Name | Role | Phone | [...] [place] | | | | | [address] [facility] [place] | [address] | | | | | [address] | | | | | | [phone] | | | +--------+ + + + [...] | | | | | | [place] [address] | | | | | | [phone] | | | | | | | | +--------+ + + + + | 06/12/ | Office | Cardiology | Linda [place] | | | 2019 | Visit | | [address] | | | | | | [address] | | | | | | [place] [address] | | | | | | [phone] | | | | | | | [...] | | | LAB | | | [place] | | | | | + + [...]
--- OUTSIDE RECORDS SUMMARY | ~2019-05-20 | XMS | Encounter Summary ---
Demographics + + + | Address | [address] | | | [place] [address] | + + + | Home Phone | | + + + | Preferred Language | Unknown | + + + | Marital Status | Legally | + + + | Denominational Affiliation | Unknown | + + + [...] [place] | | | | | [address] | | + + + + + | Vonnie Martinez | ECON | Unknown | | + + + + + Care Team Providers + +------+ + | Care Arc And Gas Welder Name | Role | Phone | + +------+ + | Oscar Taylor PA-C | PCP | | + +------+ + Encounter Details +--------+ + + + + | Date | Type | Department | Care Team | Description | +--------+ + + + + | 08/23/ | Orders Only | [facility] | Conversion | | | 2018 | | NEPRHOLOGY PRINTER | Transaction, | | | | | [address] | Provider Unknown | | | | | [address] [place], [place] | [phone] | | | | | [address] | | | | | | [phone] | | | +--------+ + + + [...] [place], | | | | | | [place] [address] | | | | | | [phone] | | | | | | | | +--------+ + + + + | 06/12/ | Office | Cardiology | Linda [place] | | | 2019 | Visit | | [address] | | | | | | [address] | | | | | | [place] [address] | | | | | | [phone] | | | | | | | | +--------+ + + + + documented as of this encounter Procedures + +--------+ + + + | Procedure Name | Priori | Date/Time | Associated Diagnosis | Comments | | | ty | | | | + +--------+ + + + | EXTERNAL LAB: [facility] | Routin | 08/23/2017 | | Results [...]
--- OUTSIDE RECORDS SUMMARY | ~2019-05-20 | XMS | Encounter Summary ---
Demographics + + + | Address | [address] | | | [place] [address] | + + + | Home Phone [...] [place] | | | | | [address] | | + + + + + | Vonnie Martinez | ECON | Unknown | | + + + + + Care Team Providers + +------+ + | Care Sales Engagement Executive Name | Role | Phone | + [...] + + | 09/08/ | Office | [facility] | Slick, | Chronic obstructive | | 2012 | Visit | PULMONARY [address] | Jessika Lewis MD | asthma (HCC) | | | | [place], | | (Primary Dx); [place] | | | | [place] [address] | | (obstructive sleep | | | | [phone] | | apnea); Allergic | | | [...] Instructions Danica Ramires - 09/08/2012 2:27 PM [facility] Rebeca Ch[facility] [address] [place] [address] Dear Rebeca: Thank you for enrolling in [employer]. Please follow the instructions below to view your secConsult A Doctor e online medical record. [employer] allows you to send secure messages to your doctor, view you r test results, renew your prescriptions, schedule appointments, and more. How Do I Sign Up? 1. In your Internet browser, go to [email or web address] 2. Click on the Sign Up Now link in the Sign In box. This will take you to the New Membe r Sign Up page. 3. Enter your [employer] access code exactly as it appears below. You will not need to use this code after you sign up. If you do not sign up before the expiration date, you must requ est a new code through your [facility]. [employer] Access Code: [email or web address] Expires: 11/07/2012 14:27 4. Fill in the last four digits of your Social Security Number (xxxx) and Date of (mm/dd/yyyy) when asked and click Submit. You will now be asked to create a [employer] [employer] ID. 5. Create a Sravnikupit ID. This will be your [facility] login ID. Your login ID cannot be rodriguez ged, so think of one that is secure and easy to remember. 6. Create a [employer] password. You can change your password at any time. 7. Enter your Password Reset Question and Answer. This can be used at a later time if yo u forget your password. 8. Enter your e-mail address. You will receive e-mail notification when new information is available in [employer]. 9. Click Sign Up. You may now view your medical record. Additional Information If you have questions, you can email [email or web address] or call to talk to our [employer] care team. Please remember, [employer] should NOT be used fo r urgent needs. For all medical emergencies, call 351. Sincerely, Jessika Kruger MD Change Symbicort to [...] is a 57 y.o. female patient of sOcar Taylor here today for evaluation of CO [...] respiratory arrest requiring BiPAP, and developed an ND due to demand ischemia from severe hypertension with pu lmonary edema. She was hospitalized for 4 days. She quit smoking during that admission. She went home and did improve. She then got worse about 1-2 weeks later. [facility] and was kept overnight. She notes that since then she has been ti red. Her breathing has been okay. She is just fatigued a lot. She has carried a diagnosis of asthma since 1994 when she moved to [place]. (Actually, we note later that it is before this when she lived in [place] and she was hospitalized sever al times as well too). She had only been on as needed albuterol in the past. She is currentl y on twice daily Symbicort, as needed Ventolin and albuterol nebulizers since her last hosit alization. She is using the Ventolin three times a week and the albuterol nebulizer once a w [place]. She is waking up at night short of breath three times a week. This is improving gradual ly. Currently they are able to walk several hundred yards at their own pace on level ground. Javad wall is doing 10 minutes of walking daily at [place], and is working up to 20 minutes [...] use it. 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 Social History Main Topics Smoking status: Former Smoker -- 1.0 packs/day for 40 years Quit date: 08/04/2012 Smokeless tobacco: Never Used Alcohol Use: No Drug Use: Yes clean for 15 years, used cocaine for only 2 years Sexually Active: None Other Topics Concern None Social History Narrative Lives in [place] with her grandchildren. She is from her [...] Please send order to [facility] [place]. Send copy of sleep study 2005. Allergic [...] made to ensure accuracy; however, inadvertent computerized data processing systems project planner errors may be pre sent. documented in [...] [place], | | | | | | [place] [address] | | | | | | [phone] | | | | | | | | +--------+ + + + + | 06/12/ | Office | Cardiology | Linda Angeles | | | 2018 | Visit | | [address] | | | | | | [address] | | | | | | [place] [address] | | | | | | [phone] | | | | | | | [...]
--- OUTSIDE RECORDS SUMMARY | ~2019-05-20 | XMS | Encounter Summary ---
Demographics + + + | Address | [address] | | | [place] [address] | + + + | Home Phone [...] + + + | Author | [facility] | | | and [place] | + + + | Organization | [facility] | | [...] [place] | | | | | [address] | | + + + + + | Vonnie Martinez | ECON | Unknown | | + + + + + Care Team Providers + +------+ + | Care Rear Load Truck Driver Name | Role | Phone | + [...] + + | 03/02/ | Refill | [facility] | Phan Jones, | Medication Refill | | 2019 | | NEPHROLOGY [place] | [address] | | | | | [address] [facility] | [place] | | | | | [place] | [place] | | | | | [address] | [address] | | | | | [phone] | [phone] | | | | | | | [...] | 05/25/ | Clinical | Cardiology | Sbaas Gaxiola, | | | 2018 | Support | | MD [address] | | | | | | [place] | | | | | | [place] [address] | | | | | | [phone] | | | | | | | | +--------+ + + + + | 06/12/ | Office | Cardiology | Linda Angeles | | | 2019 | Visit | | [address] | | | | | | [address] | | | | | | [place] [address] | | | | | | [phone] | | | | | | | | +--------+ + + + + documented as of this encounter Visit Diagnoses Not on filedocumented in this encounter"
--- OUTSIDE RECORDS SUMMARY | ~2019-05-20 | XMS | Encounter Summary ---
Demographics + + + | Address | [address] | | | [place] [address] | + + + | Home Phone | | + + + | Preferred Language | Unknown | + + + | Marital Status | Legally | + + + | Restoration Affiliation | Unknown | + + + | Race | Unknown | + + + | Ethnic Group | Unknown | + + + Author + + + | Author | [facility] | | | and [place] | + + + | Organization | [facility] | | | [...] [place] | | | | | [address] | | + + + + + | Vonnie Martinez | ECON | Unknown | | + + + + + Care Team Providers + +------+ + | Care Chemistry Technical Officer Name | Role | Phone | + +------+ + | Oscar Taylor PA-C | PCP | | + +------+ + Encounter Details +--------+ + + + + | Date | Type | Department | Care Team | Description | +--------+ + + + + | 03/04/ | Orders Only | [facility] | Conversion | | | 2017 | | NEPHROLOGY [place] | Transaction, | | | | | [address] | Provider Unknown | | | | | [address] [place] | | | | | | [address] | (Fax) | | | | | [phone] | | | +--------+ + + + [...] | | | | | | [place] [address] | | | | | | [phone] | | | | | | | | +--------+ + + + + | 06/12/ | Office | Cardiology | Bridgette Linda | | | 2019 | Visit | | [address] | | | | | | [address] [address] | | | | | | [place] [address] | | | | | | [phone] | | | | | | | [...]
--- OUTSIDE RECORDS SUMMARY | ~2019-05-20 | XMS | Encounter Summary ---
Demographics + + + | Address | [address] | | | [place] [address] | + + + | Home Phone | | + + + | Preferred Language | Unknown | + + + | Marital Status | Legally | + + + | Mormon Affiliation | Unknown | + + + [...] [place] | | | | | [address] | | + + + + + | Vonnie Martinez | ECON | Unknown | | + + + + + Care Team Providers + +------+ + | Care Boilermaker Apprentice Name | Role | Phone | + +------+ + PCP | Unavailable | + +------+ + Encounter Details +--------+ + + + + | Date | Type | Department | Care Team | Description | +--------+ + + + + | 10/23/ | Hospital [facility] | Kulwinder Lima | | | 2006 | Encounter | MED CTR SLEEP | MD Ampar[address] | | | | | [address] | [address] | | | | | [place], [place] | [place] [address] | | | | | [address] | [phone] | | | | | [phone] | | | +--------+ + + + [...] [place] | | | | | | [place] [address] | | | | | | [phone] | | | | | | | | +--------+ + + + + | 06/12/ | Office | Cardiology | Linda Angeles | | | 2018 | Visit | | [address] | | | | | | [address] | | | | | | [place] [address] | | | | | | [phone] | | | | | | | | +--------+ + + + + documented as of this encounter Visit Diagnoses Not on filedocumented in this encounter"
--- OUTSIDE RECORDS SUMMARY | ~2019-05-20 | XMS | Encounter Summary ---
Demographics + + + | Address | [address] | | | [place] [address] | + + + | Home Phone | | + + + | Preferred Language | Unknown | + + + | Marital Status | Legally | + + + | Catholic Affiliation | Unknown | + + [...] [place] | | | | | [address] | | + + + + + | Vonnie Martinez | ECON | Unknown | | + + + + + Care Team Providers + +------+ + | Care Patient Care Coordinator Name | Role | Phone | + +------+ + | Oscar Taylor PA-C | PCP | | + +------+ + Encounter Details +--------+ + + + + | Date | Type | Department | Care Team | Description | +--------+ + + + + | 04/26/ | Orders Only | [facility] | Phan Jones, | | | 2017 | | NEPRHOLOGY [place] | CONVEX GRINDER OPERATOR [address] | | | | | [address] | [place] | | | | | [address] [place], [place] | [facility] [place] | | | | | [address] | [address] | | | | | [phone] | [phone] | | | | | | | [...] [place], | | | | | | [place] [address] | | | | | | [phone] | | | | | | | | +--------+ + + + + | 06/12/ | Office | Cardiology | Linda Angeles | | | 2019 | Visit | | [address] | | | | | | [address] | | | | | | [place] [address] | | | | | | [phone] | | | | | | | [...]
--- OUTSIDE RECORDS SUMMARY | ~2019-05-20 | XMS | Encounter Summary ---
Demographics + + + | Address | [address] | | | [place] [address] | + + + | Home Phone | | + + + | Preferred Language | Unknown | + + + | Marital Status | | + + + | Druze Affiliation | Unknown | + + + | Race | White | + + + | Ethnic Group | Not or | + + + Author + + + | Author | [facility] | + + + | Organization | [facility] | + + + | Address | Unknown | + + + | Phone | Unavailable | + + + Support + + +---------+ + | Name | Relationship | Address | Phone | + + +---------+ + | Don Watson | ECON | Unknown | | + + +---------+ + Care Team Providers + +------+ + | Care Computer Information Systems Professor Name | Role | Phone | + +------+ + | Garret Rojo NP | PCP | | + +------+ + Encounter Details +--------+ + + + + | Date | Type | Department | Care Team | Description | +--------+ + + + + | 08/26/ | Abstract | [facility] | Clinic, Surgery | | | 2016 | | [place] [facility] [address] | | | | | | [address] | | | | | | Mailcode: [place] | | | | | | for Health and | | | | | | Healing, [address] | | | | | | [place], [place] | | | | | | [address] | | | | | | [phone] | | | +--------+ + + + [...]
--- OUTSIDE RECORDS SUMMARY | ~2019-05-20 | XMS | Encounter Summary ---
Demographics + + + | Address | [address] | | | [place] [address] | + + + | Home Phone | | + + + | Preferred Language | Unknown | + + + | Marital Status | Legally | + + + | Muslim Affiliation | Unknown | + + + | Race | Unknown | + + + | Ethnic Group | Unknown | + + + Author + + + | Author | [facility] | | | and [place] | + + + | Organization | [facility] | | | [...] [place] | | | | | [address] | | + + + + + | Vonnie Martinez | ECON | Unknown | | + + + + + Care Team Providers + +------+ + | Care Manager Qa Name | Role | Phone | + +------+ + | Oscar Taylor PA-C | PCP | | + +------+ + Encounter Details +--------+ + + + + | Date | Type | Department | Care Team | Description | +--------+ + + + + | 08/23/ | Orders Only | [facility] | Conversion | | | 2018 | | NEPRHOLOGY [place] | Transaction, | | | | | [address] | Provider Unknown | | | | | [address] [place], [place] | [phone] | | | | | [address] | | | | | | [phone] | | | +--------+ + + + [...] | | | | | | [place] [address] | | | | | | [phone] | | | | | | | | +--------+ + + + + | 06/12/ | Office | Cardiology | Linda Angeles | | | 2019 | Visit | | [address] | | | | | | [address] | | | | | | [place] [address] | | | | | | [phone] | | | | | | | [...]
--- OUTSIDE RECORDS SUMMARY | ~2019-05-20 | XMS | Encounter Summary ---
Demographics + + + | Address | [address] | | | [place] [address] | + + + | Home Phone | | + + + | Preferred Language | Unknown | + + + | Marital Status | Legally | + + + | Quaker Affiliation | Unknown | + + + | Race | Unknown | + + + | Ethnic Group | Unknown | + + + Author + + + | Author | [facility] | | | and [place] | + + + | Organization | [facility] | | [...] [place] | | | | | [address] | | + + + + + | Vonnie Martinez | ECON | Unknown | | + + + + + Care Team Providers + +------+ + | Care Bromination Equipment Operator Name | Role | Phone | + +------+ + | Oscar Taylor PA-C | PCP | | + +------+ + Encounter Details +--------+ + + + + | Date | Type | Department | Care Team | Description | +--------+ + + + + | 12/31/ | Orders Only | [facility] | Phan Jones, | | | 2017 | | NEPRHOLOGY [place] | EXTRACORPOREAL CIRCULATION SPECIALIST [address] | | | | | [address] | [place] | | | | | [address] [place], [place] | [facility] [place] | | | | | [address] | [address] | | | | | [phone] | [phone] | | | | | | | [...] [place], | | | | | | [place] [address] | | | | | | [phone] | | | | | | | | +--------+ + + + + | 06/12/ | Office | Cardiology | Linda Angeles | | | 2019 | Visit | | [address] | | | | | | [address] | | | | | | [place] [address] | | | | | | [phone] | | | | | | | [...]
--- OUTSIDE RECORDS SUMMARY | ~2019-05-20 | XMS | Encounter Summary ---
Demographics + + + | Address | [address] | | | [place] [address] | + + + | Home Phone | | + + + | Preferred Language | Unknown | + + + | Marital Status | Legally | + + + | Sabianism Affiliation | Unknown | + + + | Race | Unknown | + + + | Ethnic Group | Unknown | + + + Author + + + | Author | [facility] | | | and [place] | + + + | Organization | [facility] | | [...] [place] | | | | | [address] | | + + + + + | Vonnie Martinez | ECON | Unknown | | + + + + + Care Team Providers + +------+ + | Care Bullet Casting Operator Name | Role | Phone | [...] | | Essential | [place], | [facility] | | | | | hypertension | MD [address] | | | | | Type [address] | [address] | [address] [place] | | | | | diabetes | [place] | [place] | | | | | mellitus | [place], [place] | [address] | | | | | without | [address] | Phone: | | | | | complication | Phone: | [phone] | | | | | , with | [phone] | Fax: | | | | | long-term | Fax: | [phone] | | | | | current use | [phone] | | | | | | of insulin | | | | | | | ([facility]) Chest | | | | | | [...] + + | 05/02/ | Office | [facility] | Sabas Gaxiola, | Essential | | 2019 | Visit | CARDIOLOGY [place] | [address] | hypertension | | | | [address] [facility] | [place], | (Primary Dx); Pedal | | | | [address] | [place] [address] | edema; Stage 3 | | | | [place], [place] | [phone] | chronic kidney | | | | [address] | | disease (HCC); | | | | [phone] | | Centrilobular | | | | [...] | | | | | | adult ([facility]) | +--------+---------+ + + + Social History [...] 2-day protocol Lexiscan Cardiolite stress test at [facility]. A 48-hour Holter monitor will also be done to evaluate the symptoms. I saw her 05/20/17, for increasing pedal edema present intermittently for an undetermined time. She was a markedly poor historian. I was able to review records from her hospitalizat ion at [facility] August 04-2012, when she was admitted for [...] darrian turia, urinary urgency, hesitancy. No current molding plasterer disorders. HEMATOLOGY/ONCOLOGY: No h/o bleeding disorders, DVT, [...] with Proteinuria COPD (chronic obstructive pulmonary disease) ([facility]) Diabetes mellitus type II 1999 Insulin requiring, with Retinopathy, Nephropathy, Neuropathy GERD (gastroesophageal reflux disease) on omeprazole GERD (gastroesophageal reflux disease) H/O cardiac asthma pulmonary edema, acute from severe hypertension and demand ischemia Heart attack ([facility]) 2012 questionable Hepatitis C Hypertension 2009 Hypomagnesemia severe, resolved Localized edema Morbid obesity with BMI of 50.0-59.9, adult ([facility]) Obesity CHEL (obstructive sleep apnea) AHI 22.8 [...] level: Not on file Occupational History 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 Employer: [employer] Social Needs Financial resource strain: [...] file Gets together: Not on file Attends jainism service: Not on file Active member of [...] on file Social History Narrative Lives in [place] with her grandchildren. She is from her [...] R RELION 100 UNIT/ML injection nystatin (MYCOSTATIN) 181000 UNIT/GM cream APPLY TOPICALLY AA BID FOR [...] 5/16" 1 ML MISC Respiratory Therapy Supplies [facility] Res Med S9 auto CPAP 9-15 cm H2O. Heater and Humidifi er. All necessary supplies.AHI 20.1. Diagnosis Code(s)327.23. Length of Need lifetime. Gian wall send order to [facility] [place]. 1 each 99 rOPINIRole (REQUIP) 0.25 mg [...] | | | | | | [place] [address] | | | | | | [phone] | | | | | | | | +--------+ + + + + | 12/23/ | Office | Cardiology | Linda Angeles | | | 2019 | Visit | | [address] | | | | | | [address] | | | | | | [place] [address] | | | | | | [phone] | | | | | | | [...] | | | | | by [employer] [place] Read Only, | | | | | | [facility]en ([id number]), | | | | | | food editor Girish Rivera | | | | [...]
--- OUTSIDE RECORDS SUMMARY | ~2019-05-20 | XMS | Encounter Summary ---
Demographics + + + | Address | [address] | | | [place] [address] | + + + | Home Phone | | + + + | Preferred Language | Unknown | + + + | Marital Status | Legally | + + + | Shinto Affiliation | Unknown | + + + | Race | Unknown | + + + | Ethnic Group | Unknown | + + + Author + + + | Author | [facility] | | | and [place] | + + + | Organization | [facility] | | [...] [place] | | | | | [address] | | + + + + + | Vonnie Martinez | ECON | Unknown | | + + + + + Care Team Providers + +------+ + | Care Warehouse Administrative Assistant Name | Role | Phone | [...] + + | 03/17/ | Refill | [facility] | Sabas Gaxiola, | Medication Refill | | 2019 | | CARDIOLOGY [place] | [address] | | | | | [address] | [place] [facility], | | | | | [place], [place] | [place] [address] | | | | | [address] | [phone] | | | | | [phone] | | | +--------+--------+ + + + [...] | | | | | | [place] [address] | | | | | | [phone] | | | | | | | | +--------+ + + + + | 06/12/ | Office | Cardiology | Linda Angeles | | | 2018 | Visit | | [address] | | | | | | [address] | | | | | | [place] [address] | | | | | | [phone] | | | | | | | | +--------+ + + + + documented as of this encounter Visit Diagnoses Not on filedocumented in this encounter"
--- OUTSIDE RECORDS SUMMARY | ~2019-05-20 | XMS | Encounter Summary ---
Demographics + + + | Address | [address] | | | [place] [address] | + + + | Home Phone | | + + + | Preferred Language | Unknown | + + + | Marital Status | Legally | + + + | Zoroastrian Affiliation | Unknown | + + + | Race | Unknown | + + + | Ethnic Group | Unknown | + + + Author + + + | Author | [facility] | | | and [place] | + + + | Organization | [facility] | | [...] [place] | | | | | [address] | | + + + + + | Vonnie Martinez | ECON | Unknown | | + + + + + Care Team Providers + +------+ + | Care Landscaping Supervisor Name | Role | Phone | + +------+ + | Oscar Taylor PA-C | PCP | | + +------+ + Encounter Details +--------+ + + + + | Date | Type | Department | Care Team | Description | +--------+ + + + + | 11/19/ | Orders Only | [facility] | Jeremiah Mendoza MD | | | 2016 | | NEPHROLOGY [place] | [address] [place] | | | | | [address] [place] | [address] [place], [place] | | | | | [address] [facility] [place] | [address] | | | | | [address] | | | | | | [phone] | | | +--------+ + + + [...] | | | | | | [place] [address] | | | | | | [phone] | | | | | | | | +--------+ + + + + | 06/12/ | Office | Cardiology | Linda Angeles | | | 2019 | Visit | | [address] | | | | | | [address] | | | | | | [place] [address] | | | | | | [phone] | | | | | | | [...]
--- OUTSIDE RECORDS SUMMARY | ~2019-05-20 | XMS | Clinical Summary ---
Demographics + + + | Address | [address] | | | [place] [address] | + + + | Home Phone | | + + + | Preferred Language | Unknown | + + + | Marital Status | Unknown | + + + | Rastafari Affiliation | Unknown | + + + | Race | Unknown | + + + | Ethnic Group | Unknown | + + + Author + + + | Author | [facility] (Historical as of | | | 02-04-19) | + + + | Organization | [facility] (Historical as of | | | 02-04-19) [...] [place] | | | | | [address] | | + + + + + | Vonnie Martinez | ECON | Unknown | | + + + + + Care Team Providers + +------+ + | Care Bilingual Branch Manager Name | Role | Phone | [...] + | Maternal Grandfather | | | [place] | | | | (Age | | | | | 62) | | + +------+ + + | Maternal Grandmother | | | [place] | | | | (Age | | [...] +------+-------+ + | MEDICARE | MEDICA | [id number] | | | [address] | | | [place] | | | | [place] [address] | | | IP-OP | | | | | + +--------+ +------+-------+ + | UNITED HEALTHCARE | UNITED | [id number] | | | | | | | [...] | | | [place] | | | [address]39 | [address] | + +--------+ +--------+ + +
--- OUTSIDE RECORDS SUMMARY | ~2019-05-20 | XMS | Encounter Summary ---
Demographics + + + | Address | [address] | | | [place] [address] | + + + | Home Phone | | + + + | Preferred Language | Unknown | + + + | Marital Status | Legally | + + + | Mandaeism Affiliation | Unknown | + + + | Race | Unknown | + + + | Ethnic Group | Unknown | + + + Author + + + | Author | [facility] | | | and [place] | + + + | Organization | [facility] | | [...] [place] | | | | | [address] | | + + + + + | Vonnie Martinez | ECON | Unknown | | + + + + + Care Team Providers + +------+ + | Care Lithographer Apprentice Name | Role | Phone | + +------+ + | Oscar Taylor PA-C | PCP | | + +------+ + Encounter Details +--------+ + + + + | Date | Type | Department | Care Team | Description | +--------+ + + + + | 11/19/ | Orders Only | [facility] | Conversion | | | 2017 | | NEPHROLOGY [place] | Transaction, | | | | | [address] | Provider Unknown | | | | | [address] [place] | | | | | | [address] | (Fax) | | | | | [phone] | | | +--------+ + + + [...] | | | | | | [place] [address] | | | | | | [phone] | | | | | | | | +--------+ + + + + | 06/12/ | Office | Cardiology | [place] | | | 2019 | Visit | | [address] | | | | | | [address] | | | | | | [place] [address] | | | | | | [phone] | | | | | | | [...]
--- OUTSIDE RECORDS SUMMARY | ~2019-05-20 | XMS | Encounter Summary ---
Demographics + + + | Address | [address] | | | [place] [address] | + + + | Home Phone [...] [place] | | | | | [address] | | + + + + + | Vonnie Martinez | ECON | Unknown | | + + + + + Care Team Providers + +------+ + | Care Dobby Looms Pegger Name | Role | Phone | + [...] | | (obstructive | Jessika B, | [place] | | | | | sleep | MD [address] | [place], | | | | | apnea) | [address] | [place] [address] | | | | | Procedures | [place], | Phone: | | | | | [place] | [place] [address] | [phone] | | | | | 6/>YRS SLEEP | | Fax: | | | | | 4/> ADDL | | [phone] | | | | | FAUSTO ATTND [...] asthma (Primary Dx); | | | | [place], | | Allergic rhinitis; | | | | [place] [address] | | CHEL (obstructive | | | | [phone] | | sleep apnea) | +--------+---------+ + [...] a CPAP machine. She was told in [place] she di d not have to use her CPAP machine and placed her on oxygen. They did not repeat her sleep s tudy. Past Medical History Past Medical History Diagnosis Date Acute respiratory failure (HCC) asthma/copd exacebration COPD (chronic obstructive pulmonary disease) ([facility]) CHEL (obstructive sleep apnea) AHI 22.8 [...] N/A Years of Education: N/A Occupational History [employer]. Social History Main Topics Smoking status: Former Smoker -- 1.0 packs/day for 40 years Quit date: 08/04/2012 Smokeless tobacco: Never Used Alcohol Use: No Drug Use: Yes Comment: clean for 15 years, used cocaine for only 2 years Sexually Active: None Other Topics Concern None Social History Narrative Lives in [place] with her grandchildren. She is from her [...] morning (before breakfast ). Respiratory Therapy Supplies [facility] Res Med S9 auto CPAP 5-15 cm H2O. Heater and Humidifi er. All necessary supplies.AHI 22.8. Diagnosis Code(s)327.23. Length of Need lifetime. Gian wall send order to [facility] [place]. Send copy of sleep study from 2005 [...] and used her CPAP until moving to [facility], when she turned it in. She attempted to get a CPAP in [place] and was told she neede d only oxygen at that time. Getting her apnea under control is going to affect how she feels , and affect her breathing, diabetes control, etc. We will refer for a repeat diagnostic HEEL BLACKER G to qualify her for treatment. Plan [...] made to ensure accuracy; however, inadvertent computerized carpenter prototype errors may be pre sent. Electronically signed [...] | | | | | | [place] [address] | | | | | | [phone] | | | | | | | | +--------+ + + + + | 06/12/ | Office | Cardiology | Linda [place] | | | 2019 | Visit | | [address] | | | | | | [address] | | | | | | [place] [address] | | | | | | [phone] | | | | | | | [...]
--- OUTSIDE RECORDS SUMMARY | ~2019-05-20 | XMS | Encounter Summary ---
Demographics + + + | Address | [address] | | | [place] [address] | + + + | Home Phone | | + + + | Preferred Language | Unknown | + + + | Marital Status | Legally | + + + | Faith Affiliation | Unknown | + + + | Race | Unknown | + + + | Ethnic Group | Unknown | + + + Author + + + | Author | [facility] | | | and [place] | + + + | Organization | [facility] | | | [...] [place] | | | | | [address] | | + + + + + | Vonnie Martinez | ECON | Unknown | | + + + + + Care Team Providers + +------+ + | Care Hole Digger Operator Name | Role | Phone | + +------+ + | Oscar Taylor PA-C | PCP | | + +------+ + Encounter Details +--------+ + + + + | Date | Type | Department | Care Team | Description | +--------+ + + + + | 12/31/ | Orders Only | [facility] | Phan Jones, | | | 2017 | | NEPRHOLOGY [place] | LEAD MASON TENDER [address] | | | | | [address] | MARGARITA REA | | | | | [address] [place], [place] | [facility] [place] | | | | | [address] | [address] | | | | | [phone] | [phone] | | | | | | | [...] [place], | | | | | | [place] [address] | | | | | | [phone] | | | | | | | | +--------+ + + + + | 06/12/ | Office | Cardiology | Linda Angeles | | | 2019 | Visit | | [address] | | | | | | [address] | | | | | | [place] [address] | | | | | | [phone] | | | | | | | [...]
--- OUTSIDE RECORDS SUMMARY | ~2019-05-20 | XMS | Encounter Summary ---
Demographics + + + | Address | [address] | | | [place] [address] | + + + | Home Phone [...] + + + + + | Peewee Wtason | ECON | [address] | | | | | [place] | | | | | [address] | | + + + + + | Vonnie Martinez | ECON | Unknown | | + + + + + Care Team Providers + +------+ + | Care Forestry Contractor Name | Role | Phone | + +------+ + PCP | Unavailable | + +------+ + Encounter Details +--------+ + + + + | Date | Type | Department | Care Team | Description | +--------+ + + + + | 12/17/ | Hospital | [facility] | | | | 1998 | Encounter | [facility] LAB[facility] | | | | | | [address] | | | | | | [place] | | | | | | [address] | | | | | | [phone] | | | +--------+ + + + [...] | | | | | | [place] [address] | | | | | | [phone] | | | | | | | | +--------+ + + + + | 06/12/ | Office | Cardiology | [place] | | | 2018 | Visit | | [address] | | | | | | [address] | | | | | | [place] [address] | | | | | | [phone] | | | | | | | | +--------+ + + + + documented as of this encounter Visit Diagnoses Not on filedocumented in this encounter"
--- OUTSIDE RECORDS SUMMARY | ~2019-05-20 | XMS | Encounter Summary ---
Demographics + + + | Address | [address] | | | [place] [address] | + + + | Home Phone [...] [place] | | | | | [address] | | + + + + + | Vonnie Martinez | ECON | Unknown | | + + + + + Care Team Providers + +------+ + | Care Aquatic Physiotherapist Name | Role | Phone | + +------+ + | Oscar Taylor PA-C | PCP | | + +------+ + Encounter Details +--------+ + + + + | Date | Type | Department | Care Team | Description | +--------+ + + + + | 11/19/ | Orders Only | [facility] | Conversion | | | 2017 | | NEPHROLOGY [place] | Transaction, | | | | | [address] | Provider Unknown | | | | | [address] | | | | | | [address] | (Fax) | | | | | [phone] | | | +--------+ + + + [...] | | | | | | [place] [address] | | | | | | [phone] | | | | | | | | +--------+ + + + + | 06/12/ | Office | Cardiology | Linda [place] | | | 2019 | Visit | | [address] | | | | | | [address] | | | | | | [place] [address] | | | | | | [phone] | | | | | | | [...]
--- OUTSIDE RECORDS SUMMARY | ~2019-05-20 | XMS | Encounter Summary ---
Demographics + + + | Address | [address] | | | [place] [address] | + + + | Home Phone [...] + + + | Author | [facility] | | | and [place] | + + + | Organization | [facility] | | | [...] [place] | | | | | [address] | | + + + + + | Vonnie Martinez | ECON | Unknown | | + + + + + Care Team Providers + +------+ + | Care Senior Tax Accountant Name | Role | Phone | + [...] | Jessika Lewis MD | ([facility]) (Primary Dx); | | | | [place], | | COPD (chronic | | | | [place] [address] | | obstructive | | | | [phone] | | pulmonary disease) | | | | | | ([facility]); CHEL | | | | [...] | | | type 2 ([facility]); RLS | | | | [...] | | | | | | [place] [address] | | | | | | [phone] | | | | | | | | +--------+ + + + + | 06/12/ | Office | Cardiology | Linda Angeles | | | 2019 | Visit | | [address] | | | | | | [address] | | | | | | [place] [address] | | | | | | [phone] | | | | | | | [...]
--- OUTSIDE RECORDS SUMMARY | ~2019-05-20 | XMS | Encounter Summary ---
Demographics + + + | Address | [address] | | | [place] [address] | + + + | Home Phone [...] [place] | | | | | [address] | | + + + + + | Vonnie Martinez | ECON | Unknown | | + + + + + Care Team Providers + +------+ + | Care Messenger Floorperson Name | Role | Phone | + +------+ + | Oscar Taylor PA-C | PCP | | + +------+ + Encounter Details +--------+ + + + + | Date | Type | Department | Care Team | Description | +--------+ + + + + | 12/24/ | Orders Only | [facility] | Conversion | | | 2018 | | NEPHROLOGY [place] | Transaction, | | | | | [address] | Provider Unknown | | | | | [address] | | | | | | [address] | (Fax) | | | | | [phone] | | | +--------+ + + + [...] | | | | | | [place] [address] | | | | | | [phone] | | | | | | | | +--------+ + + + + | 06/12/ | Office | Cardiology | Bridgette Linda | | | 2019 | Visit | | [address] | | | | | | [address] | | | | | | [place] [address] | | | | | | [phone] | | | | | | | [...] - 1.030 | EXTERNAL | | | [facility] | | | LAB | | + [...] | | | LAB | | | [facility] | | | | | + + [...]
--- OUTSIDE RECORDS SUMMARY | ~2019-05-20 | XMS | Encounter Summary ---
Demographics + + + | Address | [address] | | | [place] [address] | + + + | Home Phone [...] [place] | | | | | [address] | | + + + + + | Vonnie Martinez | ECON | Unknown | | + + + + + Care Team Providers + +------+ + | Care Wad Impregnator Name | Role | Phone | + +------+ + PCP | Unavailable | + +------+ + Encounter Details +--------+ + + + + | Date | Type | Department | Care Team | Description | +--------+ + + + + | 12/17/ | Hospital | [facility] | | | | 1998 | Encounter | MED CTR LABORATORY | | | | | | [address] | | | | | | [place] | | | | | | [address] | | | | | | [phone] | | | +--------+ + + + [...] | | | | | | [place] [address] | | | | | | [phone] | | | | | | | | +--------+ + + + + | 06/12/ | Office | Cardiology | [place] | | | 2018 | Visit | | [address] | | | | | | [address] | | | | | | [place] [address] | | | | | | [phone] | | | | | | | | +--------+ + + + + documented as of this encounter Visit Diagnoses Not on filedocumented in this encounter"
--- OUTSIDE RECORDS SUMMARY | ~2019-05-20 | XMS | Clinical Summary ---
Demographics + + + | Address | [address] | | | [place] [address] | + + + | Home Phone [...] [place] | | | | | [address] | | + + + + + | Vonnie Martinez | ECON | Unknown | | + + + + + Care Team Providers + +------+ + | Care Treasury Representative Name | Role | Phone | [...] 12/2 | | Activ | | (MYCOSTATIN) [id number] | BID FOR 7-10 DAYS | | [...] Overview: Asthma and Emphysema - Dr. Jessika rKuger | + + + + + | [...] Refill | | 2019 | | | SENIOR PHP WEB DEVELOPER | | +--------+---------+ + + + from [...] + | Maternal Grandfather | | | [place] | | | | (Age | | | | | 62) | | + +------+ + + | Maternal Grandmother | | | [place] | | | | (Age | | [...] [place] | | | | | | [place] [address] | | | | | | [phone] | | | | | | | | +--------+ + + + + | 06/12/ | Office | Cardiology | Linda [place] | | | 2018 | Visit | | [address] | | | | | | [address] | | | | | | [place] [address] | | | | | | [phone] | | | | | | | [...] | | | | | by [employer] [place] [employer], | | | | | | [employer] (502), | | | | | | 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 Girish Rivera | | | | | [...] +--------+ +---------+--------+ | MEDICARE | MEDICA | [id number] | 10/20/19 | [phone] | | Medica | | | RE | | 12-Pre | 5 | | re | | | PART A | | sent | | | | | | AND B | | | | | | + +--------+ +--------+ +---------+--------+ | MEDICARE | MEDICA | [id number] | 10/20/19 | [phone] | | Medica | | | RE | | 12-Pre | 5 | | re | | | PART A | | sent | | | | | | AND B | | | | | | + +--------+ +--------+ +---------+--------+ | AARP | AARP | [id number] | 06/21/19 | [phone] | | Indemn | | | MDCR | | 19-Pre | 0 | | ity | | | SUPPL | | sent | | | | + +--------+ +--------+ +---------+--------+ | AARP | AARP | [id number] | | [phone] | | Indemn | [...] | | al/Fam | | 1954 | [phone] | [place] | | | maira | | | 9 (Home) | [address] | | | | | | [phone] | | | | | | | 8 (Work) | | + +--------+ +--------+ + + | Rebeca Watson | Person | Self | [birth year] | | | | al/Fam | | 1954 | [phone] | [place] | | | [place]a | | | 9 (Home) | [address] | | | | | | [phone] | | | | | | | 8 (Work) | | + +--------+ +--------+ + + Advance Directives + + + + + | Type | Date Recorded | Patient | Explanation | | | | Chemical Processing Supervisor | | + + + + + | Power of | | | | | Pharmacy Technician | | | | + + + + + | Advance | | | | | Directive | | | | + + + + +
--- OUTSIDE RECORDS SUMMARY | ~2019-05-20 | XMS | Encounter Summary ---
Demographics + + + | Address | [address] | | | [place] [address] | + + + | Home Phone | | + + + | Preferred Language | Unknown | + + + | Marital Status | Legally | + + + | Pentecostalism Affiliation [...] [place] | | | | | [address] | | + + + + + | Vonnie Martinez | ECON | Unknown | | + + + + + Care Team Providers + +------+ + | Care Single Stroke Preformer Name | Role | Phone | + +------+ + | Oscar Taylor PA-C | PCP | | + +------+ + Encounter Details +--------+ + + + + | Date | Type | Department | Care Team | Description | +--------+ + + + + | 09/28/ | Orders Only | [facility] | Jeremiah Mendoza MD | | | 2013 | | NEPRHOLOGY [place] | [address] | | | | | [address] | [address] [place], [place] | | | | | [address] [place], [place] | [address] | | | | | [address] | | | | | | [phone] | | | +--------+ + + + [...] | | | | | | [place] [address] | | | | | | [phone] | | | | | | | | +--------+ + + + + | 06/12/ | Office | Cardiology | [place] | | | 2019 | Visit | | [address] | | | | | | [address] | | | | | | [place] [address] | | | | | | [phone] | | | | | | | [...] | | | LAB | | | [place] | | | | | + +-------+ [...]
--- OUTSIDE RECORDS SUMMARY | ~2019-05-20 | XMS | Encounter Summary ---
Demographics + + + | Address | [address] | | | [place] [address] | + + + | Home Phone | | + + + | Preferred Language | Unknown | + + + | Marital Status | Legally | + + + | Buddhist Affiliation | Unknown | + + + | Race | Unknown | + + + | Ethnic Group | Unknown | + + + Author + + + | Author | [facility] | | | and [place] | + + + | Organization | [facility] | | [...] [place] | | | | | [address] | | + + + + + | Vonnie Martinez | ECON | Unknown | | + + + + + Care Team Providers + +------+ + | Care Recruitment Consultant Name | Role | Phone | [...] + + | 09/08/ | Office | [facility] | [place], | Chronic obstructive | | 2012 | Visit | PULMONARY [address] | Jessika Lewis MD | asthma (HCC) | | | | [place], | | (Primary Dx); [place] | | | | [place] [address] | | (obstructive sleep | | | | [phone] | | apnea); Allergic | | | [...] Instructions Danica Ramires [facility] Rebeca [facility] [address] [place] [address] Dear Rebeca: Thank you for enrolling in [facility]. Please follow the instructions below to view your secValkee e online medical record. [facility] allows you to send secure messages to your doctor, view you r test results, renew your prescriptions, schedule appointments, and more. How Do I Sign Up? 1. In your Internet browser, go to [email or web address] 2. Click on the Sign Up Now link in the Sign In box. This will take you to the [facility] Sign Up page. 3. Enter your [facility] access code exactly as it appears below. You will not need to use this code after you sign up. If you do not sign up before the expiration date, you must requ est a new code through your [facility]. [facility] Access Code: [email or web address] Expires: 11/07/2012 14:27 4. Fill in the last four digits of your Social Security Number (xxxx) and Date of (mm/dd/yyyy) when asked and click Submit. You will now be asked to create a [facility] ID. 5. Create a [employer] ID. This will be your [facility] login ID. Your login ID cannot be rodriguez ged, so think of one that is secure and easy to remember. 6. Create a [facility] password. You can change your password at any time. 7. Enter your Password Reset Question and Answer. This can be used at a later time if yo u forget your password. 8. Enter your e-mail address. You will receive e-mail notification when new information is available in [facility]. 9. Click Sign Up. You may now view your medical record. Additional Information If you have questions, you can email or call [phone] to talk to our [facility] care team. Please remember, [facility] should NOT be used fo r urgent needs. For all medical emergencies, call 001. Sincerely, Jessika Kruger MD Change Symbicort to [...] respiratory arrest requiring BiPAP, and developed an [place] due to demand ischemia from severe hypertension with pu lmonary edema. She was hospitalized for 4 days. She quit smoking during that admission. She went home and did improve. She then got worse about 1-2 weeks later. She went back to [facility] on August 28 and was kept overnight. She notes that since then she has been ti red. Her breathing has been okay. She is just fatigued a lot. She has carried a diagnosis of asthma since 1994 when she moved to [place]. (Actually, we note later that it is before this when she lived in [place] and she was hospitalized sever al times as well too). She had only been on as needed albuterol in the past. She is currentl y on twice daily Symbicort, as needed Ventolin and albuterol nebulizers since her last hosit alization. She is using the Ventolin three times a week and the albuterol nebulizer once a w tonto apache. She is waking up at night short of breath three times a week. This is improving gradual ly. Currently they are able to walk several hundred yards at their own pace on level ground. Javad wall is doing 10 minutes of walking daily at [place], and is working up to 20 minutes [...] use it. She does not have a enrich-inen t order, and needs a new assessment [...] N/A Years of Education: N/A Occupational History [employer]. Social History Main Topics Smoking status: Former Smoker -- 1.0 packs/day for 40 years Quit date: 08/04/2012 Smokeless tobacco: Never Used Alcohol Use: No Drug Use: Yes clean for 15 years, used cocaine for only 2 years Sexually Active: None Other Topics Concern None Social History Narrative Lives in [place] with her grandchildren. She is from her [...] Please send order to [facility] [place]. Send copy of sleep study 2005. Allergic [...] made to ensure accuracy; however, inadvertent computerized farm management adviser errors may be pre sent. documented in [...] [place], | | | | | | [place] [address] | | | | | | [phone] | | | | | | | | +--------+ + + + + | 06/12/ | Office | Cardiology | [place] | | | 2018 | Visit | | [address] | | | | | | [address] | | | | | | [place] [address] | | | | | | [phone] | | | | | | | [...]
--- OUTSIDE RECORDS SUMMARY | ~2019-05-20 | XMS | Encounter Summary ---
Demographics + + + | Address | [address] | | | [place] [address] | + + + | Home Phone | | + + + | Preferred Language | Unknown | + + + | Marital Status | Legally | + + + | Adventist Affiliation | Unknown | + + + | Race | Unknown | + + + | Ethnic Group | Unknown | + + + Author + + + | Author | [facility] | | | and [place] | + + + | Organization | [facility] | | [...] [place] | | | | | [address] | | + + + + + | Vonnie Martinez | ECON | Unknown | | + + + + + Care Team Providers + +------+ + | Care Refrigeration Repair Supervisor Name | Role | Phone | [...] + + | 03/15/ | Refill | [facility] | Sabas [place], | Medication Refill | | 2019 | | CARDIOLOGY [place] | [address] | | | | | [address] | [facility] [place] | | | | | [place], [place] | [place] [address] | | | | | [address] | [phone] | | | | | [phone] | | | +--------+--------+ + + + [...] | | | | | | [place] [address] | | | | | | [phone] | | | | | | | | +--------+ + + + + | 06/12/ | Office | Cardiology | [place] | | | 2018 | Visit | | [address] | | | | | | [address] | | | | | | [place] [address] | | | | | | [phone] | | | | | | | | +--------+ + + + + documented as of this encounter Visit Diagnoses Not on filedocumented in this encounter"
--- OUTSIDE RECORDS SUMMARY | ~2019-05-20 | XMS | Encounter Summary ---
Demographics + + + | Address | [address] | | | [place] [address] | + + + | Home Phone [...] [address] | | | | | [place] | | | | | [address] | | + + + + + | Vonnie Martinez | ECON | Unknown | | + + + + + Care Team Providers + +------+ + | Care Building Analyst/Supervisor Name | Role | Phone | + [...] [address] | | | | | [place], | [place], [place] | | | | | [place] [address] | [address] | | | | | [phone] | | | +--------+ + + + [...] | | | | | | [place] [address] | | | | | | [phone] | | | | | | | | +--------+ + + + + | 06/12/ | Office | Cardiology | [place] | | | 2019 | Visit | | [address] | | | | | | [address] | | | | | | [place] [address] | | | | | | [phone] | | | | | | | | +--------+ + + + + documented as of this encounter Visit Diagnoses Not on filedocumented in this encounter"
[~2019-05-20 14:00] MED LIST changes: +AUGMENTIN 875-1 EACH PO
--- OUTSIDE RECORDS SUMMARY | 2019-05-20 14:04 | XMS ---
PreManage Notification: MODESTA CRAWFORD Security Unstacker Events No recent Security Events currently on file CRITERIA MET - PDMP CARE PROVIDERS NORMA TILLMAN Primary Care 01/20/2016-Current PHONE: Unknown Addi has no Care Guidelines for this patient. ERicardo VISIT COUNT (12 MO.) 1 LOUISA Elizalde TOTAL 1 NOTE: Visits indicate total known visits. ED/UCC VISIT TRACKING (12 MO.) 05/20/2019 14:01 [facility] [place] TYPE: Emergency COMPLAINT: - LOC, FALL INPATIENT VISIT TRACKING (12 MO.) No inpatient visits to display in this time frame [email or web address]
--- NOTE | 2019-05-20 22:53 | EKG ---
[facility] [address] [facility] [place] [address] Signed Normal sinus rhythm Low voltage QRS ST \T\ T wave abnormality, consider anterior ischemia Abnormal ECG When compared with ECG of 13-DEC-2018 12:36, T wave inversion now evident in Anterior leads Confirmed by KYLE MARTÍNEZ MD ([id number]) on 05/20/2019 10:53:39 PM Electronically Signed By: KYLE MARTÍNEZ MD 05/20/19 2253 PATIENT NAME: MODESTA CRAWFORD Electrocardiogram DATE OF : 53 PHYSICIAN: KYLE MARTÍNEZ MD REPORT #: [id number] REPORT IS CONFIDENTIAL AND NOT TO BE RELEASED WITHOUT AUTHORIZATION
== END 2019-05-20 19:01 | disposition home or self-care (01) ==
LOC: ED 14:00
DX: R55 Syncope and collapse (principal); R79.89 Other specified abnormal findings of blood chemistry; I10 Essential (primary) hypertension; E11.9 Type 2 diabetes mellitus without complications; I25.2 Old myocardial infarction; J44.9 Chronic obstructive pulmonary disease, unspecified; Z87.891 Personal history of nicotine dependence; Z88.8 Allergy status to other drugs, medicaments and biological substances; Z88.5 Allergy status to narcotic agent; Z79.899 Other long term (current) drug therapy; Z79.4 Long term (current) use of insulin; Z79.51 Long term (current) use of inhaled steroids
CPT/HCPCS: 71045; 80053; 83735; 84484; 85025; 93005; 93010; 93225; 93226; 93227; 99284-25

== ENCOUNTER 2019-05-31 12:33 | Emergency (ER) | payer MEDICARE ==
[~2019-05-31] VITALS: Ht 162.6 cm; Wt 142.9 kg
--- OUTSIDE RECORDS SUMMARY | ~2019-05-31 | XMS | Encounter Summary ---
Demographics + + + | Address | [address] | | | [place] [address] | + + + | Home Phone | | + + + | Preferred Language | Unknown | + + + | Marital Status | Legally | + + + | Latter Day Affiliation | Unknown | + + + | Race | Unknown | + + + | Ethnic Group | Unknown | + + + Author + + + | Author | [facility] | | | and [place] | + + + | Organization | [facility] | | | and [place] | + + + | Address | Unknown | + + + | Phone | Unavailable | + + + Support + + + + + | Name | Relationship | Address | Phone | + + + + + | Peewee Watson | ECON | [address] | | | | [place] | | | | | [address] | | + + + + + | Vonnie Martinez | ECON | Unknown | | + + + + + Care Team Providers + +------+ + | Care Charging Board Operator Name | Role | Phone | + +------+ + | Oscar Taylor PA-C | PCP | | + +------+ + Encounter Details +--------+ + + + + | Date | Type | Department | Care Team | Description | +--------+ + + + + | 12/31/ | Orders Only | [facility] | Phan Jones, | | | 2017 | | NEPRHOLOGY [place] | RECORDS AND INFORMATION MANAGER [address] | | | | | [address] | [address] | | | | | [address] [place], [place] | [facility] ID | | | | | [address] | [address] | | | | | [phone] | [phone] | | | | | | | | +--------+ + + + + Social History + +-------+ +--------+ + | Tobacco Use | Types | Packs/Day | Years | Date | | | | | Used | | + +-------+ +--------+ + | Former Smoker | | 1 | 40 | Quit: 08/04/2012 | + +-------+ +--------+ + + +---+---+---+ | Smokeless Tobacco: | | | | | Never Used | | | | + +---+---+---+ + + +---------+ + | Alcohol Use | Drinks/Week | oz/Week | Comments | + + +---------+ + | No | | | | + + +---------+ + + + + | Sex Assigned at | Date Recorded | | | | + + + | Not on file | | + + + + + + + | Job Start Date | Occupation | Industry | + + + + | Not on file | Not on file | Not on file | + + + + + + + + | Travel History | Travel Start | Travel End | + + + + + + | No recent travel history available. | + + documented as of this encounter Plan of Treatment +--------+---------+ + + + | Date | Type | Specialty | Care Team | Description | +--------+---------+ + + + | 06/12/ | Office | Cardiology | [facility] | | | 2019 | Visit | | [address] | | | | | | [place] | | | | | | [place] [address] | | | | | | [phone] | | | | | | | | +--------+---------+ + + + documented as of this encounter Procedures + +--------+ + + + | Procedure Name | Priori | Date/Time | Associated Diagnosis | Comments | | | ty | | | | + +--------+ + + + | IRON AND IRON | Routin | 12/31/2017 | | Results for this | | BINDING CAPACITY | e | 7:05 AM | | procedure are in the | | | | PDT | | results section. | + +--------+ + + + | FERRITIN | Routin | 12/31/2017 | | Results for this | | | e | 7:05 AM | | procedure are in the | | | | PDT | | results section. | + +--------+ + + + | BASIC METABOLIC | Routin | 12/31/2017 | | Results for this | | PANEL | e | 7:05 AM | | procedure are in the | | | | PDT | | results section. | + +--------+ + + + documented in this encounter Results Iron and Iron Binding Capacity (12/31/2017 7:05 AM PDT) + + + + + + | Component | Value | Ref Range | Performed | Pathologist | | | | | At | Signature | + + + + + + | Iron | 57.50 | 37 - 160 | EXTERNAL | | | | | | LAB | | + + + + + + | Iron | 17.0 (A) | 20 - 55 | EXTERNAL | | | Saturation | | | LAB | | + + + + + + | TIBC | 338 | 245 - 400 | EXTERNAL | | | | | | LAB | | + + + + + + + + | Specimen | + + | Blood specimen | | (specimen) | + + + +---------+ + + | Performing | Address | City/State/Zipcode | Phone Number | | Organization | | | | + +---------+ + + | EXTERNAL LAB | | | | + +---------+ + + Ferritin (12/31/2017 7:05 AM PDT) + + + + + + | Component | Value | Ref Range | Performed | Pathologist | | | | | At | Signature | + + + + + + | Ferritin, | 193.4 (A) | 13 - 150 ng/mL | EXTERNAL | | | External | | | LAB | | + + + + + + + + | Specimen | + + | Blood specimen | | (specimen) | + + + + + | Narrative | Performed At | + + + | [facility] [address] - 241.38 - 192 - 382 | EXTERNAL LAB | + + + + +---------+ + + | Performing | Address | City/State/Zipcode | Phone Number | | Organization | | | | + +---------+ + + | EXTERNAL LAB | | | | + +---------+ + + Basic Metabolic Panel (12/31/2017 7:05 AM PDT) + + + + + + | Component | Value | Ref Range | Performed | Pathologist | | | | | At | Signature | + + + + + + | Glucose, | 76 | 70 - 100 mg/dL | EXTERNAL | | | Fasting | | | LAB | | + + + + + + | BUN | 30 (A) | 6 - 23 mg/dL | EXTERNAL | | | | | | LAB | | + + + + + + | Creatinine | 1.79 (A) | 0.70 - 1.25 | EXTERNAL | | | | | mg/dL | LAB | | + + + + + + | BUN/Creatin | 16.8 | 6.0 - 28.6 | EXTERNAL | | | ine Ratio | | | LAB | | + + + + + + | Calcium | 9.6 | 8.4 - 10.2 | EXTERNAL | | | | | mg/dL | LAB | | + + + + + + | Na | 140 | 132 - 143 | EXTERNAL | | | | | mmol/L | LAB | | + + + + + + | K | 3.9 | 3.6 - 5.1 | EXTERNAL | | | | | mmol/L | LAB | | + + + + + + | Cl | 93 (A) | 95 - 112 mmol/L | EXTERNAL | | | | | | LAB | | + + + + + + | CO2 | 33 (A) | 19 - 31 mmol/L | EXTERNAL | | | | | | LAB | | + + + + + + | Anion Gap | 17.9 | 7 - 21 mmol/L | EXTERNAL | | | | | | LAB | | + + + + + + | Estimated | 29 | mg/dL | EXTERNAL | | | GFR | | | LAB | | + + + + + + + + | Specimen | + + | Blood specimen | | (specimen) | + + + +---------+ + + | Performing | Address | City/State/Zipcode | Phone Number | | Organization | | | | + +---------+ + + | EXTERNAL LAB | | | | + +---------+ + + documented in this encounter Visit Diagnoses Not on filedocumented in this encounter"
--- OUTSIDE RECORDS SUMMARY | ~2019-05-31 | XMS | Encounter Summary ---
Demographics + + + | Address | [address] | | | [place] [address] | + + + | Home Phone | | + + + | Preferred Language | Unknown | + + + | Marital Status | Legally | + + + | Yazdanism Affiliation | Unknown | + + + | Race | Unknown | + + + | Ethnic Group | Unknown | + + + Author + + + | Author | [facility] | | | and [place] | + + + | Organization | [facility] | | | and [...] [place] | | | | | [address] | | + + + + + | Vonnie Martinez | ECON | Unknown | | + + + + + Care Team Providers + +------+ + | Care Highway Research Engineer Name | Role | Phone | + +------+ + | Oscar Taylor PA-C | PCP | | + +------+ + Encounter Details +--------+ + + + + | Date | Type | Department | Care Team | Description | +--------+ + + + + | 09/28/ | Orders Only | [facility] | Jeremiah Mendoza MD | | | 2013 | | NEPRHOLOGY [place] | [address] | | | | | [address] | [address] [place], [place] | | | | | [address] [place], [place] | [address] | | | | | [address] | | | | | | [phone] | | | +--------+ + + + [...] [address] | | | | | | [place] [address] | | | | | | [phone] | | | | | | | | +--------+---------+ + + + documented as of this encounter Procedures + +--------+ + + + | Procedure Name | Priori | Date/Time | Associated Diagnosis | Comments | | | ty | | | | + +--------+ + + + | EXTERNAL LAB: CBC | Routin | 09/28/2013 | | Results for this | | | e | 12:00 AM | | procedure are in the | | | | PDT | | results section. | + +--------+ + + + | URINALYSIS WITH | Routin | 09/28/2013 | | Results for this | | MICROSCOPIC WITH | e | 12:00 AM | | procedure are in the | | CULTURE IF INDICATED | | PDT | | results section. | + +--------+ + + + | VITAMIN D, | Routin | 09/28/2013 | | Results for this | | DEFICIENCY SCREEN | e | 12:00 AM | | procedure are in the | | (25-HYDROXY) | | PDT | | results section. | + +--------+ + + + | PARATHYROID HORMONE, | Routin | 09/28/2013 | | Results for this | | INTACT AND CALCIUM | e | 12:00 AM | | procedure are in the | | | | PDT | | results section. | + +--------+ + + + | PROTEIN/CREATININE | Routin | 09/28/2013 | | Results for this | | RATIO, URINE | e | 12:00 AM | | procedure are in the | | | | PDT | | results section. | + +--------+ + + + | PROTEIN, URINE, | Routin | 09/28/2013 | | Results for this | | RANDOM | e | 12:00 AM | | procedure are in the | | | | PDT | | results section. | + +--------+ + + + | CREATININE, URINE, | Routin | 09/28/2013 | | Results for this | | RANDOM | e | 12:00 AM | | procedure are in the | | | | PDT | | results section. | + +--------+ + + + | MAGNESIUM | Routin | 09/28/2013 | | Results for this | | | e | 12:00 AM | | procedure are in the | | | | PDT | | results section. | + +--------+ + + + | RENAL FUNCTION PANEL | Routin | 09/28/2013 | | Results for this | | | e | 12:00 AM | | procedure are in the | | | | PDT | | results section. | + +--------+ + + + documented in this encounter Results Urinalysis with Microscopic with Culture if Indicated (09/28/2013 12:00 AM PDT) + + + + + + | Component | Value | Ref Range | Performed | Pathologist | | | | | At | Signature | + + + + + + | Color | Yellow | | EXTERNAL | | | | | | LAB | | + + + + + + | Clarity | Clear | | EXTERNAL | | | | | | LAB | | + + + + + + | Spec Grav, | 1.011 | | EXTERNAL | | | Fluid | | | LAB | | + + + + + + | Leukocyte | Negative | | EXTERNAL | | | Esterase, | | | LAB | | | Urine | | | | | + + + + + + | Nitrite, | Negative | | EXTERNAL | | | Urine | | | LAB | | + + + + + + | Urobilinoge | 4 | | EXTERNAL | | | n, Urine | | | LAB | | + + + + + + | Total | Negative | | EXTERNAL | | | Protein | | | LAB | | + + + + + + | pH, Urine | 7 | | EXTERNAL | | | | | | LAB | | + + + + + + | Blood, | Negative | | EXTERNAL | | | Urine | | | LAB | | + + + + + + | Ketones | Negative | | EXTERNAL | | | | | | LAB | | + + + + + + | Bilirubin, | Negative | | EXTERNAL | | | Urine | | | LAB | | + + + + + + | Glucose, | Negative | | EXTERNAL | | | Urine | | | LAB | | + + + + + + | WBC, UA | | | EXTERNAL | | | | | | LAB | | + + + + + + | RBC, UA | | | EXTERNAL | | | | | | LAB | | + + + + + + | Epithelial | | | EXTERNAL | | | Cells | | | LAB | | + + + + + + | Bacteria, | | | EXTERNAL | | | UA | | | LAB | | + + + + + + | HYALINE | | | EXTERNAL | | | CASTS UA | | | LAB | | + + + + + + + + | Specimen | + + | | + + + +---------+ + + | Performing | Address | City/State/Zipcode | Phone Number | | Organization | | | | + +---------+ + + | EXTERNAL LAB | | | | + +---------+ + + Parathyroid Hormone, Intact and Calcium (09/28/2013 12:00 AM PDT) + +-------+ + + + | Component | Value | Ref Range | Performed | Pathologist | | | | | At | Signature | + +-------+ + + + | PTH Intact | 55.62 | | EXTERNAL | | | | | | LAB | | + +-------+ + + + | Calcium | 9.5 | | EXTERNAL | | | | | | LAB | | + +-------+ + + + + + | Specimen | + + | Blood specimen | | (specimen) | + + + +---------+ + + | Performing | Address | City/State/Zipcode | Phone Number | | Organization | | | | + +---------+ + + | EXTERNAL LAB | | | | + +---------+ + + Protein/Creatinine Ratio, Urine (09/28/2013 12:00 AM PDT) + +-------+ + + + | Component | Value | Ref Range | Performed | Pathologist | | | | | At | Signature | + +-------+ + + + | Protein/Cre | 191.2 | | EXTERNAL | | | at Ratio | | | LAB | | + +-------+ + + + + + | Specimen | + + | Urine specimen | | (specimen) | + + + +---------+ + + | Performing | Address | City/State/Zipcode | Phone Number | | Organization | | | | + +---------+ + + | EXTERNAL LAB | | | | + +---------+ + + Protein, Urine, Random (09/28/2013 12:00 AM PDT) + +-------+ + + + | Component | Value | Ref Range | Performed | Pathologist | | | | | At | Signature | + +-------+ + + + | Protein, | 13 | | EXTERNAL | | | Urine | | | LAB | | + +-------+ + + + + + | Specimen | + + | Urine specimen | | (specimen) | + + + +---------+ + + | Performing | Address | City/State/Zipcode | Phone Number | | Organization | | | | + +---------+ + + | EXTERNAL LAB | | | | + +---------+ + + Creatinine, Urine, Random (09/28/2013 12:00 AM PDT) + +-------+ + + + | Component | Value | Ref Range | Performed | Pathologist | | | | | At | Signature | + +-------+ + + + | Creatinine, | 68 | | EXTERNAL | | | 24H Ur | | | LAB | | + +-------+ + + + + + | Specimen | + + | Urine specimen | | (specimen) | + + + +---------+ + + | Performing | Address | City/State/Zipcode | Phone Number | | Organization | | | | + +---------+ + + | EXTERNAL LAB | | | | + +---------+ + + Vitamin D, Deficiency Screen (25-Hydroxy) (09/28/2013 12:00 AM PDT) + +-------+ + + + | Component | Value | Ref Range | Performed | Pathologist | | | | | At | Signature | + +-------+ + + + | Vit D, | 14 | | EXTERNAL | | | 25-Hydroxy | | | LAB | | + +-------+ + + + + + | Specimen | + + | Blood specimen | | (specimen) | + + + +---------+ + + | Performing | Address | City/State/Zipcode | Phone Number | | Organization | | | | + +---------+ + + | EXTERNAL LAB | | | | + +---------+ + + External Lab: CBC (09/28/2013 12:00 AM PDT) + +-------+ + + + | Component | Value | Ref Range | Performed | Pathologist | | | | | At | Signature | + +-------+ + + + | WBC | 11.2 | 10 | EXTERNAL | | | | | | LAB | | + +-------+ + + + | RED CELL | 4.64 | 10 | EXTERNAL | | | COUNT | | | LAB | | + +-------+ + + + | Hgb | 12.7 | g/dL | EXTERNAL | | | | | | LAB | | + +-------+ + + + | Hematocrit, | 39.6 | % | EXTERNAL | | | POC | | | LAB | | + +-------+ + + + | MCV | 85.3 | fL | EXTERNAL | | | | | | LAB | | + +-------+ + + + | MCH | 27 | pg | EXTERNAL | | | | | | LAB | | + +-------+ + + + | MCHC | 32 | g/dL | EXTERNAL | | | | | | LAB | | + +-------+ + + + | Platelet | 158 | K/ L | EXTERNAL | | | Count | | | LAB | | | Plasma | | | | | + +-------+ + + + | RDW-CV | 14.6 | % | EXTERNAL | | | | | | LAB | | + +-------+ + + + | MPV | | fL | EXTERNAL | | | | | | LAB | | + +-------+ + + + | Differentia | Auto | | EXTERNAL | | | l Type | | | LAB | | + +-------+ + + + | % Segmented | 58.2 | % | EXTERNAL | | | | | | LAB | | | Neutrophils | | | | | + +-------+ + + + | % | 33.1 | % | EXTERNAL | | | Lymphocytes | | | LAB | | + +-------+ + + + | % Monocytes | 5.7 | % | EXTERNAL | | | | | | LAB | | + +-------+ + + + | % | 2.3 | % | EXTERNAL | | | Eosinophils | | | LAB | | + +-------+ + + + | % Basophils | 0.7 | % | EXTERNAL | | | | | | LAB | | + +-------+ + + + | Absolute | | / L | EXTERNAL | | | Segmented | | | LAB | | | Neutrophils | | | | | + +-------+ + + + | Absolute | | / L | EXTERNAL | | | Lymphocytes | | | LAB | | + +-------+ + + + | Absolute | | / L | EXTERNAL | | | Monocytes | | | LAB | | + +-------+ + + + | Absolute | | / L | EXTERNAL | | | Eosinophils | | | LAB | | + +-------+ + + + | Absolute | | / L | EXTERNAL | | | Basophils | | | LAB | | + +-------+ + + + + + | Specimen | + + | Blood specimen | | (specimen) | + + + +---------+ + + | Performing | Address | City/State/Zipcode | Phone Number | | Organization | | | | + +---------+ + + | EXTERNAL LAB | | | | + +---------+ + + Magnesium (09/28/2013 12:00 AM PDT) + +-------+ + + + | Component | Value | Ref Range | Performed | Pathologist | | | | | At | Signature | + +-------+ + + + | Magnesium | 2.0 | mg/dL | EXTERNAL | | | | | | LAB | | + +-------+ + + + + + | Specimen | + + | Blood specimen | | (specimen) | + + + +---------+ + + | Performing | Address | City/State/Zipcode | Phone Number | | Organization | | | | + +---------+ + + | EXTERNAL LAB | | | | + +---------+ + + Renal Function Panel (09/28/2013 12:00 AM PDT) + +-------+ + + + | Component | Value | Ref Range | Performed | Pathologist | | | | | At | Signature | + +-------+ + + + | Glucose, | 120 | mg/dL | EXTERNAL | | | Fasting | | | LAB | | + +-------+ + + + | BUN | 28 | mg/dL | EXTERNAL | | | | | | LAB | | + +-------+ + + + | Creatinine | 1.24 | mg/dL | EXTERNAL | | | | | | LAB | | + +-------+ + + + | PHOSPHORUS | | mg/dL | EXTERNAL | | | | | | LAB | | + +-------+ + + + | Albumin | 3.5 | | EXTERNAL | | | | | | LAB | | + +-------+ + + + | Na | 138 | mmol/L | EXTERNAL | | | | | | LAB | | + +-------+ + + + | K | 4.9 | mmol/L | EXTERNAL | | | | | | LAB | | + +-------+ + + + | Cl | 101 | mmol/L | EXTERNAL | | | | | | LAB | | + +-------+ + + + | CO2 | 28 | mmol/L | EXTERNAL | | | | | | LAB | | + +-------+ + + + | Anion Gap | 13.9 | mmol/L | EXTERNAL | | | | | | LAB | | + +-------+ + + + | eGFR if not | | | EXTERNAL | | | | | | LAB | | | POLISH | | | | | + +-------+ + + + | Phosphorus, | 3.0 | | EXTERNAL | | | Inorganic | | | LAB | | + +-------+ + + + | BUN/Creatin | 22.6 | | EXTERNAL | | | ine Ratio | | | LAB | | + +-------+ + + + | Calcium | 9.5 | mg/dL | EXTERNAL | | | | | | LAB | | + +-------+ + + + | Estimated | 44 | mg/dL | EXTERNAL | | | GFR | | | LAB | | + +-------+ + + + + + | Specimen [...]
--- OUTSIDE RECORDS SUMMARY | ~2019-05-31 | XMS | Encounter Summary ---
Demographics + + + | Address | [address] | | | [place] [address] | + + + | Home Phone | | + + + | Preferred Language | Unknown | + + + | Marital Status | Legally | + + + | Temple Affiliation | Unknown | + + + | Race | Unknown | + + + | Ethnic Group | Unknown | + + + Author + + + | Author | [facility] | | | and [place] | + + + | Organization | [facility] | | | [...] [place] | | | | | [address] | | + + + + + | Vonnie Martinez | ECON | Unknown | | + + + + + Care Team Providers + +------+ + | Care Games Dealer Name | Role | Phone | + +------+ + | Jay Jay Mcfarlane MD | PCP | | + +------+ + Encounter Details +--------+ + + + + | Date | Type | Department | Care Team | Description | +--------+ + + + + | 08/31/ | Abstract | [facility] | Miranda Evan, | | | 2012 | | PULMONARY [address] | MD [address] | | | | | [place], | [place], [place] | | | | | [place] [address] | [address] | | | | | [phone] | | | +--------+ + + + + Social History + +-------+ +--------+------+ | Tobacco Use | Types | Packs/Day | Years | Date | | | | | Used | | + +-------+ +--------+------+ | Current Every Day | | 1.5 | | | | Smoker | | | | | + +-------+ +--------+------+ + + +---------+ + | Alcohol Use | Drinks/Week | oz/Week | Comments | + + +---------+ + | Not Asked | | | | + + +---------+ [...] Cardiology | [facility] | | | 2018 | Visit | | [address] | | | | | | [place] | | | | | | [place] [address] | | | | | | [phone] | | | | | | | | +--------+---------+ + + + documented as of this encounter Visit Diagnoses Not on filedocumented in this encounter"
--- OUTSIDE RECORDS SUMMARY | ~2019-05-31 | XMS | Encounter Summary ---
Demographics + + + | Address | [address] | | | [place] [address] | + + + | Home Phone | | + + + | Preferred Language | Unknown | + + + | Marital Status | Legally | + + + | Congregational Affiliation | Unknown | + + + | Race | Unknown | + + + | Ethnic Group | Unknown | + + + Author + + + | Author | [facility] | | | and [place] | + + + | Organization | [facility] | | [...] [place] | | | | | [address] | | + + + + + | Vonnie Martinez | ECON | Unknown | | + + + + + Care Team Providers + +------+ + | Care Metal Technician Name | Role | Phone | + +------+ + | Oscar Taylor PA-C | PCP | | + +------+ + Encounter Details +--------+ + + + + | Date | Type | Department | Care Team | Description | +--------+ + + + + | 12/24/ | Orders Only | [facility] | Conversion | | | 2018 | | NEPHROLOGY [facility] | Transaction, | | | | | [address] | Provider Unknown | | | | | [address] [place] [place] | | | | | | [address] | (Fax) | | | | | [phone] | | | +--------+ + + + [...] [place] | | | | | | [place] [address] | | | | | | [phone] | | | | | | | | +--------+---------+ + + + documented as of this encounter Procedures + +--------+ + + + | Procedure Name | Priori | Date/Time | Associated Diagnosis | Comments | | | ty | | | | + +--------+ + + + | EXTERNAL LAB: CBC | Routin | 12/24/2017 | | Results for this | | | e | 10:45 AM | | procedure are in the | | | | PDT | | results section. | + +--------+ + + + | URINALYSIS, | Routin | 12/24/2017 | | Results for this | | MICROSCOPIC ONLY | e | 10:45 AM | | procedure are in the | | | | PDT | | results section. | + +--------+ + + + | PROTEIN/CREATININE | Routin | 12/24/2017 | | Results for this | | RATIO, URINE | e | 10:45 AM | | procedure are in the | | | | PDT | | results section. | + +--------+ + + + | CULTURE, URINE | Routin | 12/24/2017 | | Results for this | | | e | 10:45 AM | | procedure are in the | | | | PDT | | results section. | + +--------+ + + + | URIC ACID | Routin | 12/24/2017 | | Results for this | | | e | 10:45 AM | | procedure are in the | | | | PDT | | results section. | + +--------+ + + + | PARATHYROID HORMONE, | Routin | 12/24/2017 | | Results for this | | INTACT | e | 10:45 AM | | procedure are in the | | | | PDT | | results section. | + +--------+ + + + | MAGNESIUM | Routin | 12/24/2017 | | Results for this | | | e | 10:45 AM | | procedure are in the | | | | PDT | | results section. | + +--------+ + + + | RENAL FUNCTION PANEL | Routin | 12/24/2017 | | Results for this | | | e | 10:45 AM | | procedure are in the | | | | PDT | | results section. | + +--------+ + + + documented in this encounter Results Culture, Urine (12/24/2017 10:45 AM PDT) + + | Specimen | + + | Urine specimen | | (specimen) | + + + + + | Narrative | Performed At | + + + | Specimen Description Urine CULTURE | EXTERNAL LAB | | Escherichia | | | Coli REPORT STATUS Final | | + + + + +---------+ + + | Performing | Address | City/State/Zipcode | Phone Number | | Organization | | | | + +---------+ + + | EXTERNAL LAB | | | | + +---------+ + + Protein/Creatinine Ratio, Urine (12/24/2017 10:45 AM PDT) + +-------+ + + + | Component | Value | Ref Range | Performed | Pathologist | | | | | At | Signature | + +-------+ + + + | Protein/Cre | 101.3 | 0 - 150 | EXTERNAL | | | at Ratio [...] | | | + +---------+ + + Urinalysis, Microscopic Only (12/24/2017 10:45 AM PDT) + + + + + + | Component | Value | Ref Range | Performed | Pathologist | | | | | At | Signature | + + + + + + | Color | Yellow | | EXTERNAL | | | | | | LAB | | + + + + + + | Clarity | Cloudy | | EXTERNAL | | | | | | LAB | | + + + + + + | Specific | 1.008 | 1.005 - 1.030 | EXTERNAL | | | [place] | | | LAB | | + + + + + + | Leukocyte | Trace | | EXTERNAL | | | Esterase, | | | LAB | | | Urine | | | | | + + + + + + | Nitrite, | Trace | | EXTERNAL | | | Urine | | | LAB | | + + + + + + | Urobilinoge | Normal | | EXTERNAL | | | n, Urine | | | LAB | | + + + + + + | Protein, | Negative | | EXTERNAL | | | Urine | | | LAB | | + + + + + + | pH, Urine | 5 | 5 - 9 | EXTERNAL | | | | | [...] Performed At | + + + | Casts: Hyaline 4+ WBC's: >50 RBC's: 2 Epithelial: Squamous 1+ | EXTERNAL LAB | | Bacteria: 2+ | | + + + + +---------+ + + | Performing | Address | City/State/Zipcode | Phone Number | | Organization | | | | + +---------+ + + | EXTERNAL LAB | | | | + +---------+ + + External Lab: CBC (12/24/2017 10:45 AM PDT) + + + + + + | Component | Value | Ref Range | Performed | Pathologist | | | | | At | Signature | + + + + + + | WBC | 8.3 | 4.5 - 11.0 10 | EXTERNAL | | | | | | LAB | | + + + + + + | RED CELL | 3.76 (A) | 3.8 - 5.1 10 | EXTERNAL | | | COUNT | | | LAB | | + + + + + + | Hgb | 10.8 (A) | 12 - 16 g/dL | EXTERNAL | | | | | | LAB | | + + + + + + | Hematocrit, | 33.6 (A) | 35 - 45 % | EXTERNAL | | | POC | | | LAB | | + + + + + + | MCV | 89.2 | 81 - 99 fL | EXTERNAL | | | | | | LAB | | + + + + + + | MCH | 29 | 27 - 33 pg | EXTERNAL | | | | | | LAB | | + + + + + + | MCHC | 32 | 30 - 36 g/dL | EXTERNAL | | | | | | LAB | | + + + + + + | Platelet | 132 (A) | 140 - 440 K/ L | EXTERNAL | | | Count | | | LAB | | | Plasma | | | | | + + + + + + | RDW-CV | 14.6 | 10.5 - 15.0 % | EXTERNAL | | | | | | LAB | | + + + + + + | MPV | | fL | EXTERNAL | | | | | | LAB | | + + + + + + | Differentia | | | EXTERNAL | | | l Type | | | LAB | | + + + + + + | % Segmented | | % | EXTERNAL | | | | | | LAB | | | Neutrophils | | | | | + + + + + + | % | | % | EXTERNAL | | | Lymphocytes | | | LAB | | + + + + + + | % Monocytes | | % | EXTERNAL | | | | | | LAB | | + + + + + + | % | | % | EXTERNAL | | | Eosinophils | | | LAB | | + + + + + + | % Basophils | | % | EXTERNAL | | | | | | LAB | | + + + + + + | Absolute | | / L | EXTERNAL | | | Segmented | | | LAB | | | Neutrophils | | | | | + + + + + + | Absolute | | / L | EXTERNAL | | | Lymphocytes | | | LAB | | + + + + + + | Absolute | | / L | EXTERNAL | | | Monocytes | | | LAB | | + + + + + + | Absolute | | / L | EXTERNAL | | | Eosinophils | | | LAB | | + + + + + + | Absolute | | [...] | | | + +---------+ + + Uric Acid (12/24/2017 10:45 AM PDT) + +---------+ + + + | Component | Value | Ref Range | Performed | Pathologist | | | | | At | Signature | + +---------+ + + + | Uric Acid | 7.2 (A) | 2.3 - 6.6 | EXTERNAL | | | | | | LAB | | + +---------+ + + + + + | Specimen | + + | Blood specimen | | (specimen) | + + + +---------+ + + | Performing | Address | City/State/Zipcode | Phone Number | | Organization | | | | + +---------+ + + | EXTERNAL LAB | | | | + +---------+ + + Parathyroid Hormone, Intact (12/24/2017 10:45 AM PDT) + + + + + + | Component | Value | Ref Range | Performed | Pathologist | | | | | At | Signature | + + + + + + | PTH INTACT | 145.6 (A) | 15 - 65 pg/mL | EXTERNAL | | | | | [...] | | + +---------+ + + Magnesium (12/24/2017 10:45 AM PDT) + +-------+ + + + | Component | Value | Ref Range | Performed | Pathologist | | | | | At | Signature | + +-------+ + + + | Magnesium | 1.9 | 1.7 - 2.5 mg/dL | EXTERNAL | | | | [...] + +---------+ + + Renal Function Panel (12/24/2017 10:45 AM PDT) + + + + + + | Component | Value | Ref Range | Performed | Pathologist | | | | | At | Signature | + + + + + + | Glucose, | 71 | 70 - 100 mg/dL | EXTERNAL | | | Fasting | | | LAB | | + + + + + + | BUN | 36 (A) | 6 - 23 mg/dL | EXTERNAL | | | | | | LAB | | + + + + + + | Creatinine | 1.88 (A) | 0.7 - 1.25 | EXTERNAL | | | | | mg/dL | LAB | | + + + + + + | PHOSPHORUS | 3.4 | 2.5 - 5.0 mg/dL | EXTERNAL | | | | | | LAB | | + + + + + + | Albumin | 3.6 | 3.5 - 5.0 | EXTERNAL | | | | | | LAB | | + + + + + + | Na | 138 | 132 - 143 | EXTERNAL | | | | | mmol/L | LAB | | + + + + + + | K | 3.4 (A) | 3.6 - 5.1 | EXTERNAL | | | | | mmol/L | LAB | | + + + + + + | Cl | 95 | 95 - 112 mmol/L | EXTERNAL | | | | | | LAB | | + + + + + + | CO2 | 29 | 19 - 31 mmol/L | EXTERNAL | | | | | | LAB | | + + + + + + | Anion Gap | 17.4 | 7 - 21 mmol/L | EXTERNAL | | | | | | LAB | | + + + + + + | eGFR if not | | | EXTERNAL | | | | | | LAB | | | [place] | | | | | + + + + + + | Phosphorus, | | | EXTERNAL | | | Inorganic | | | LAB | | + + + + + + | BUN/Creatin | 19.1 | 6.0 - 28.6 | EXTERNAL | | | ine Ratio | | | LAB | | + + + + + + | Calcium | 9.2 | 8.4 - 10.2 | EXTERNAL | | | | | mg/dL | LAB | | + + + + + + | Estimated | 27 (A) | 60 mg/dL | EXTERNAL | | | GFR [...]
--- OUTSIDE RECORDS SUMMARY | ~2019-05-31 | XMS | Encounter Summary ---
Demographics + + + | Address | [address] | | | [place] [address] | + + + | Home Phone | | + + + | Preferred Language | Unknown | + + + | Marital Status | Legally | + + + | Mandaeism Affiliation | Unknown | + + + | Race | Unknown | + + + | Ethnic Group | Unknown | + + + Author + + + | Author | [facility] | | | and [place] | + + + | Organization | [facility] | | | [...] [place] | | | | | [phone] | | + + + + + | Vonnie Martinez | ECON | Unknown | | + + + + + Care Team Providers + +------+ + | Care Small Stock Facer Name | Role | Phone | + +------+ + | Oscar Taylor PA-C | PCP | | + +------+ + Reason for Visit + + + | Reason | Comments | + + + | Medication Refill | | + + + Encounter Details +--------+--------+ + + + | Date | Type | Department | Care Team | Description | +--------+--------+ + + + | 03/15/ | Refill | [facility] | [place], | Medication Refill | | 2019 | | CARDIOLOGY [place] | [address] | | | | | [address] | [facility], | | | | | [place], [place] | [place] [address] | | | | | [address] | [phone] | | | | | [phone] | | | +--------+--------+ + + + Social History + +-------+ [...] | 06/12/ | Office | Cardiology | Bridgette [facility] | | | 2019 | Visit | | [address] | | | | | | [address] | | | | | | [place] [address] | | | | | | [phone] | | | | | | | | +--------+---------+ + + + documented as of this encounter Visit Diagnoses Not on filedocumented in this encounter"
--- OUTSIDE RECORDS SUMMARY | ~2019-05-31 | XMS | Encounter Summary ---
Demographics + + + | Address | [address] | | | [place] [address] | + + + | Home Phone | | + + + | Preferred Language | Unknown | + + + | Marital Status | Legally | + + + | Buddhism Affiliation | Unknown | + + + | Race | Unknown | + + + | Ethnic Group | Unknown | + + + Author + + + | Author | [facility] | | | and [place] | + + + | Organization | [facility] | | | [...] [place] | | | | | [address] | | + + + + + | Vonnie Martinez | ECON | Unknown | | + + + + + Care Team Providers + +------+ + | Care Manager Business Operations Name | Role | Phone | + +------+ + | Oscar Taylor PA-C | PCP | | + +------+ + Encounter Details +--------+ + + + + | Date | Type | Department | Care Team | Description | +--------+ + + + + | 09/28/ | Orders Only | [facility] | Jeremiah Mendoza MD | | | 2013 | | NEPRHOLOGY [place] | [address] | | | | | [address] | [address] [place], [place] | | | | | [address] [place], [place] | [address] | | | | | [address] | | | | | | [phone] | | | +--------+ + + + [...] [address] | | | | | | [place] [address] | | | | | | [phone] | | | | | | | [...] | | | LAB | | | [place] | | | | | + +-------+ [...]
--- OUTSIDE RECORDS SUMMARY | ~2019-05-31 | XMS | Encounter Summary ---
Demographics + + + | Address | [address] | | | [place] [address] | + + + | Home Phone | | + + + | Preferred Language | Unknown | + + + | Marital Status | Legally | + + + | Taoist Affiliation | Unknown | + + + | Race | Unknown | + + + | Ethnic Group | Unknown | + + + Author + + + | Author | [facility] | | | and [place] | + + + | Organization | [facility] | | | [...] [place] | | | | | [address] | | + + + + + | Vonnie Martinez | ECON | Unknown | | + + + + + Care Team Providers + +------+ + | Care Personal Computer Specialist Name | Role | Phone | + +------+ + | Oscar Taylor PA-C | PCP | | + +------+ + Reason for Referral Evaluate & Treat (Routine) +--------+ + + + + + | Status | Reason | Specialty | Diagnoses / | Referred By | Referred To | | | | | Procedures | Contact | Contact | +--------+ + + + + + | Closed | Specialty | Sleep | Diagnoses | | [facility] | | | Services | Medicine | CHEL | [place], | Center [address] | | | Required | | (obstructive | Jessika B, | [place] | | | | | sleep | MD [address] | [place], | | | | | apnea) | [address] | [place] [address] | | | | | Procedures | [place], | Phone: | | | | | MD POLYS[address] | [place] [address] | [phone] | | | | | 6/>YRS SLEEP | | Fax: | | | | | 4/> ADDL | | [phone] | | | | | FAUSTO ATTND | | | | | | | NPSG | | | +--------+ + + + + + Reason for Visit + + + | Reason | Comments | + + + | Follow-up | | + + + Encounter Details +--------+---------+ + + + | Date | Type | Department | Care Team | Description | +--------+---------+ + + + | 10/16/ | Office | [facility] | [place], | Chronic obstructive | | 2013 | Visit | PULMONARY [address] | Jessika Lewis MD | asthma (Primary Dx); | | | | [place], | | Allergic rhinitis; | | | | [place] [address] | | CHEL (obstructive | | | | [phone] | | sleep apnea) | +--------+---------+ + + + Social History + +-------+ [...] + + documented as of this encounter Last Filed Vital Signs + + + + + | Vital Sign | Reading | Time Taken | Comments | + + + + + | Blood Pressure | 106/80 | 10/16/2013 2:29 PM | | | | | PDT | | + + + + + | Pulse | 72 | 10/16/2013 2:29 PM | | | | | PDT | | + + + + + | Temperature | - | - | | + + + + + | Respiratory Rate | - | - | | + + + + + | Oxygen Saturation | 97% | 10/16/2013 2:29 PM | | | | | PDT | | + + + + + | Inhaled Oxygen | - | - | | | Concentration | | | | + + + + + | Weight | 118.4 kg (261 lb) | 10/16/2013 2:29 PM | | | | | PDT | | + + + + + | Height | 161.3 cm (5' 3.5") | 10/16/2013 2:29 PM | | | | | PDT | | + + + + + | Body Mass Index | 45.51 | 10/16/2013 2:29 PM | | | | | PDT | | + + + + + documented in this encounter Patient Instructions Patient Instructions Jessika Kruger MD - 10/16/2013 3:15 PM PDTNo medication norris es today. I want you to start walking once your toe heals. We will refer you for a sleep study. Stay on the Qvar 2 puffs twice daily. Use the Ventolin as needed. You can try taking loratadine (generic Claritin) once daily for the allergies.Electronicall y signed by Jessika Kruger MD at 10/16/2013 3:17 PM PDT documented in this encounter Progress Notes Jessika Kruger MD - 10/16/2013 2:50 PM PDTFormatting of this note might be differe nt from the original. Pulmonary Follow Up HPI Rebeca Watson is a 58 y.o. female patient of Oscar Taylor here today for follow up of ARELI Chavez. She notes that she went through a spell where she got quite sick, caught a URI from her fam maira, and then got very sick. She then got shortness of breath, wheezing and coughing. She rivera s been off of work for about a month due to illness. She actually coughed so hard she had an episode of cough syncope. She also had an episode of seizure due to hypoglycemia while ill. She broke her from this. She was treated with doxycycline in mid August, and then got a cough suppressant at the end of August. Her insurance had denied her coverage for the Advair. She had been placed Qvar in place of the Advair. She was apparently not using it correctly after staring it last month, but now i s using it regularly 2 puffs twice daily. She is using her Ventolin as needed. She is using the Ventolin once or twice every other day. She is limited in her walking quite a bit by her toe pain. She can walk down the block but does not think she could walk 1/4 mile. She is not exercising regularly, and had not been. She is wanting to start walking once she is better. She is dedicated to starting exercising and losing 20 pounds. She has family that are willing to walk with her. She does not cough chronically, she coughs mostly at night when she lies down, and when she wakes up. She does have symptoms of heartburn or reflux. She is drinking 2 cups of coffee a day. She takes daily omeprazole and still has breakthrough. She snores terribly, and has woken herself up in her sleep. She does gasp in her sleep. She does have apneas at night. She does not use a CPAP machine. She was told in [place] she di d not have to use her CPAP machine and placed her on oxygen. They did not repeat her sleep s tudy. Past Medical History Past Medical History Diagnosis Date Acute respiratory failure (HCC) asthma/copd exacebration COPD (chronic obstructive pulmonary disease) ([facility]) CHEL (obstructive sleep apnea) AHI 22.8 in 2005, Dr. Lima Cardiac ischemia 08/04/2012 demand ischemia H/O cardiac asthma pulmonary edema, acute from severe hypertension and demand ischemia Peripheral neuropathy (HCC) Hypertension Diabetes mellitus, type 2 (HCC) Obesity Asthma RLS (restless legs syndrome) on gabapentin and pain medication GERD (gastroesophageal reflux disease) on omeprazole Hypomagnesemia severe, resolved Hepatitis C Past Surgical History Past Surgical History Procedure Date Partial hysterectomy ovaries in place Cholecystectomy Tonsillectomy Cyst removal tailbone Social History: History Social History Marital Status: Legally Spouse Name: N/A Number of Children: N/A Years of Education: N/A 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 Social History Main Topics Smoking status: Former Smoker -- 1.0 packs/day for 40 years Quit date: 08/04/2012 Smokeless tobacco: Never Used Alcohol Use: No Drug Use: Yes Comment: clean for 15 years, used cocaine for only 2 years Sexually Active: None Other Topics Concern None Social History Narrative Lives in [place] with her grandchildren. She is from her . No known exp osure to toxic chemicals or asbestos. No known exposure to tuberculosis.Has dogs at home. No other animal exposures. Allergies: Allergies Allergen Reactions Quinine Tramadol Medications: Outpatient Encounter Prescriptions as of 10/16/2013 Medication Sig Dispense Refill albuterol (VENTOLIN HFA) 90 mcg/puff inhaler Inhale 2 puffs into the lungs every 6 hour s as needed. albuterol 2.5 mg/3 mL nebulizer solution Take 2.5 mg by nebulization every 6 hours as n eeded. amitriptyline (ELAVIL) 25 mg tablet Take 25 mg by mouth nightly. aspirin 81 mg EC tablet Take 81 mg by mouth Daily. beclomethasone (QVAR) 40 mcg/puff inhaler Inhale 2 puffs into the lungs 2 times daily. buPROPion (WELLBUTRIN SR) 150 mg 12 hr tablet Take 150 mg by mouth Daily. carvedilol (COREG) 25 mg tablet Take 25 mg by mouth 2 times daily (with breakfast & din ner). gabapentin (NEURONTIN) 300 mg capsule Take 800 mg by mouth 3 times daily. Take 900mg at bedtime and 600mg in the AM. hydrochlorothiazide 25 mg tablet Take 25 mg by mouth Daily. HYDROcodone-acetaminophen (NORCO) 10-325 mg per tablet Take 1 tablet by mouth every 6 h ours as needed. insulin aspart (NOVOLOG FLEXPEN) 100 units/mL injection Inject under the skin. Take 15 units before each meal ( 3 times daily). Than take PRN insulin glargine (LANTUS) 100 units/mL injection Inject 35 Units under the skin nightly . lisinopril (PRINIVIL, ZESTRIL) 10 mg tablet Take 10 mg by mouth Daily. metformin (GLUCOPHAGE) 1000 MG tablet Take 1,000 mg by mouth 2 times daily (with breakf ast & dinner). omeprazole (PRILOSEC) 20 mg capsule Take 20 mg by mouth every morning (before breakfast ). Respiratory Therapy Supplies [facility] S9 auto CPAP 5-15 cm H2O. Heater and Humidifi er. All necessary supplies.AHI 22.8. Diagnosis Code(s)327.23. Length of Need lifetime. Gian wall send order to [facility] [place]. Send copy of sleep study from 2005 with order. 1 each 99 Review of Systems Constitutional: Denies fever, chills, sweats. Has been gaining weight. Sleep: Has known CHEL and continued snoring fatigue. Eyes: Denies vision change and eye irritation. Vision is blurry and is due for an eye exam . ENT: Denies earache, decreased hearing, nosebleeds, sore throat. Has had hoarsness lately. Resp: See HPI. CV: Denies chest pain, palpitations, and peripheral edema. Had syncope as above. GI: Denies nausea, vomiting, and abdominal pain. Had a brief gastroenteritis. Objective BP 106/80 | Pulse 72 | Ht 1.613 m (5' 3.5") | Wt 118.389 kg (261 lb) | BMI 45.50 kg/m2 | Sp O2 97% RA Neck circumference:18 1/2" General Appearance: Alert, cooperative, no distress, appears stated age Head: Normocephalic, without obvious abnormality, atraumatic Eyes: PERRL, conjunctiva clear, no scleral icterus, EOM's intact Ears: Normal TM's, external auditory canals, normal acuity Nose: Nares normal, septum midline, mucosa normal Mouth: No oral lesions or exudate Neck: Supple, symmetrical, no adenopathy Lungs: No accessory muscle use, breath sounds are somewhat diminished bilaterally with so me prolongation of the expiratory phase, no wheezes, crackles or rhonchi Chest Wall: No deformity Heart: Regular rate and rhythm, no murmur, rub or gallop Abdomen: Soft, non-tender, non-distended, obese Extremities: No cyanosis, clubbing, or edema Pulses: Radial pulses 2+ and symmetric Skin: Warm and dry Lymph nodes: Cervical and supraclavicular nodes normal Data: Oscar Taylor's notes were reviewed in clinic today. Immunization History Administered Date(s) Administered INFLUENZA, PRESERVATIVE FREE IM 04/10/2012, 03/21/2013 Pneumococcal (Adult) 08/11/2012 Assessment 1. Chronic obstructive asthma - Recent exacerbation after URI and sinus infection. Now on Q crispin twice daily, which is costing her $30+ a month and she feels this is all she can afford. We are limited in her treatment options, though I thinks he would benefit from other inhale r therapy. For now, we can continue this. If she has a lot of symptomatic dyspnea once she i s more active, we could consider alternative therapy. Notably, FEV1 1 year ago, was 70% of p redicted, so she has only mild disease. 2. Allergic rhinitis - I did suggest she try better control of her allergies. Taking a lester y loratadine would be very inexpensive and likely would help control her airway symptoms to some degree. 3. CHEL (obstructive sleep apnea) - Diagnosed in 2005, and used her CPAP until moving to [facility], when she turned it in. She attempted to get a CPAP in [place] and was told she neede d only oxygen at that time. Getting her apnea under control is going to affect how she feels , and affect her breathing, diabetes control, etc. We will refer for a repeat diagnostic OPTICAL ADVISOR G to qualify her for treatment. Plan 1.Continue Qvar 80mcg 2 puffs twice daily. 2.Continue Ventolin as needed. 3.Try using loratadine 10mg daily to control allergies. 4. Refer for repeat diagnostic NPSG. She was advised to call if new pulmonary symptoms were to develop. Return to clinic 2-3 weeks after sleep study, or sooner with concerns. CC: Oscar Taylor Portions of this report were transcribed using voice recognition software. Every effort wa s made to ensure accuracy; however, inadvertent computerized jailkeeper errors may be pre sent. Electronically signed by: Jessika Kruger MD 10/16/2013 15:07 documented in t his encounter Plan of Treatment +--------+---------+ + + + | Date | Type | Specialty | Care Team | Description | +--------+---------+ + + + | 06/12/ | Office | Cardiology | [place] | | | 2019 | Visit | | [address] | | | | | | [address] | | | | | | [place] [address] | | | | | | [phone] | | | | | | | | +--------+---------+ + + + + + +--------+ + + | Name | Type | Priori | Associated Diagnoses | Order Schedule | | | | ty | | | + + +--------+ + + | Diagnostic NPSG | Outpatient | Routin | CHEL (obstructive | 1 Occurrences | | | Referral | e | sleep apnea) | starting 10/16/2013 | | | | | | until 10/16/2014 | + + +--------+ + + documented as of this encounter Visit Diagnoses + + | Diagnosis | + + | Chronic obstructive asthma - Primary Chronic obstructive asthma, unspecified | + + | Allergic rhinitis Allergic rhinitis, cause unspecified | + + | CHEL (obstructive sleep apnea) Obstructive sleep apnea (adult) (pediatric) | + + documented in this encounter
--- OUTSIDE RECORDS SUMMARY | ~2019-05-31 | XMS | Encounter Summary ---
Demographics + + + | Address | [address] | | | [place] [address] | + + + | Home Phone | | + + + | Preferred Language | Unknown | + + + | Marital Status | Legally | + + + | Scientologist Affiliation [...] [place] | | | | | [address] | | + + + + + | Vonnie Martinez | ECON | Unknown | | + + + + + Care Team Providers + +------+ + | Care Roller Cleaner Name | Role | Phone | + +------+ + | Oscar Taylor PA-C | PCP | | + +------+ + Encounter Details +--------+ + + + + | Date | Type | Department | Care Team | Description | +--------+ + + + + | 04/26/ | Orders Only | [facility] | Phan Jones, | | | 2017 | | NEPRHOLOGY [place] | ROUTER OPERATOR [address] | | | | | [address] | [address] | | | | | [address] [place], [place] | [facility] [place] | | | | | [address] | [address] | | | | | [phone] | [phone] | | | | | | | [...] [address] | | | | | | [place] [address] | | | | | | [phone] | | | | | | | | +--------+---------+ + + + documented as of this encounter Procedures + +--------+ + + + | Procedure Name | Priori | Date/Time | Associated Diagnosis | Comments | | | ty | | | | + +--------+ + + + | PROTEIN/CREATININE | Routin | 04/26/2018 | | Results for this | | RATIO, URINE | e | 12:00 AM | | procedure are in the | | | | PST | | results section. | + +--------+ + + + documented in this encounter Results Protein/Creatinine Ratio, Urine (04/26/2018 12:00 AM PST) + +-------+ + + + | Component | Value | Ref Range | Performed | Pathologist | | | | | At | Signature | + +-------+ + + + | Protein/Cre | 80 | 0 - 150 | EXTERNAL | [...]
--- OUTSIDE RECORDS SUMMARY | ~2019-05-31 | XMS | Encounter Summary ---
Demographics + + + | Address | [address] | | | [place] [address] | + + + | Home Phone | | + + + | Preferred Language | Unknown | + + + | Marital Status | Legally | + + + | Zoroastrianism Affiliation | Unknown | + + + | Race | Unknown | + + + | Ethnic Group | Unknown | + + + Author + + + | Author | [facility] | | | and [place] | + + + | Organization | [facility] | | | [...] [place] | | | | | [address] | | + + + + + | Vonnie Martinez | ECON | Unknown | | + + + + + Care Team Providers + +------+ + | Care Document Controller Name | Role | Phone | + +------+ + PCP | Unavailable | + +------+ + Encounter Details +--------+ + + + + | Date | Type | Department | Care Team | Description | +--------+ + + + + | 12/17/ | Hospital | [facility] | | | | 1998 | Encounter | [facility] | | | | | | [address] | | | | | | [place] | | | | | | [address] | | | | | | [phone] | | | +--------+ + + + + Social History + +-------+ +--------+------+ | Tobacco Use | Types | Packs/Day | Years | Date | | | | | Used | | + +-------+ +--------+------+ | Never Assessed | | | | | + +-------+ +--------+------+ + + + | Sex Assigned at [...] | 06/12/ | Office | Cardiology | [place] | | | 2019 | Visit | | [address] | | | | | | [address] | | | | | | [place] [address] | | | | | | [phone] | | | | | | | | +--------+---------+ + + + documented as of this encounter Visit Diagnoses Not on filedocumented in this encounter"
--- OUTSIDE RECORDS SUMMARY | ~2019-05-31 | XMS | Encounter Summary ---
Demographics + + + | Address | [address] | | | [place] [address] | + + + | Home Phone | | + + + | Preferred Language | Unknown | + + + | Marital Status | Legally | + + + | Congregational Affiliation | Unknown | + + + | Race | Unknown | + + + | Ethnic Group | Unknown | + + + Author + + + | Author | [facility] | | | and [place] | + + + | Organization | [facility] | | [...] [place] | | | | | [address] | | + + + + + | Vonnie Martinez | ECON | Unknown | | + + + + + Care Team Providers + +------+ + | Care Sql Ssrs Developer Name | Role | Phone | + +------+ + | Oscar Taylor PA-C | PCP | | + +------+ + Encounter Details +--------+ + + + + | Date | Type | Department | Care Team | Description | +--------+ + + + + | 08/23/ | Orders Only | [facility] | Conversion | | | 2018 | | NEPRHOLOGY [place] | Transaction, | | | | | [address] | Provider Unknown | | | | | [address] [place], [place] | [phone] | | | | | [address] | | | | | | [phone] | | | +--------+ + + + [...] [address] | | | | | | [place] [address] | | | | | | [phone] | | | | | | | | +--------+---------+ + + + documented as of this encounter Procedures + +--------+ + + + | Procedure Name | Priori | Date/Time | Associated Diagnosis | Comments | | | ty | | | | + +--------+ + + + | EXTERNAL LAB: CBC | Routin | 08/23/2017 | | Results for this | | | e | 12:00 AM | | procedure are in the | | | | PST | | results section. | + +--------+ + + + | BASIC METABOLIC | Routin | 08/23/2017 | | Results for this | | PANEL | e | 12:00 AM | | procedure are in the | | | | PST | | results section. | + +--------+ + + + documented in this encounter Results External Lab: CBC (08/23/2017 12:00 AM PST) + + + + + + | Component | Value | Ref Range | Performed | Pathologist | | | | | At | Signature | + + + + + + | WBC | 10.5 | 4.5 - 11.0 10 | EXTERNAL | | | | | | LAB | | + + + + + + | RED CELL | 3.88 | 3.8 - 5.1 10 | EXTERNAL | | | COUNT | | | LAB | | + + + + + + | Hgb | 11.0 (A) | 12.0 - 16.0 | EXTERNAL | | | | | g/dL | LAB | | + + + + + + | Hematocrit, | 34.0 (A) | 35 - 45 % | EXTERNAL | | | POC | | | LAB | | + + + + + + | MCV | 87.6 | 81 - 99 fL | EXTERNAL | | | | | | LAB | | + + + + + + | MCH | 28 | 27 - 33 pg | EXTERNAL | | | | | | LAB | | + + + + + + | MCHC | 32 | 30 - 36 g/dL | EXTERNAL | | | | | | LAB | | + + + + + + | Platelet | 147 | 140 - 440 K/ L | EXTERNAL | | | Count | | | LAB | | | Plasma | | | | | + + + + + + | RDW-CV | 15.4 (A) | 10.5 - 15.0 % | EXTERNAL [...] + +---------+ + + Basic Metabolic Panel (08/23/2017 12:00 AM PST) + + + + + + | Component | Value | Ref Range | Performed | Pathologist | | | | | At | Signature | + + + + + + | Glucose, | 144 (A) | 70 - 100 mg/dL | EXTERNAL | | | Fasting | | | LAB | | + + + + + + | BUN | 39 (A) | 6 - 23 mg/dL | EXTERNAL | | | | | | LAB | | + + + + + + | Creatinine | 1.67 (A) | 0.70 - 1.25 | EXTERNAL | | | | | mg/dL | LAB | | + + + + + + | BUN/Creatin | 23.4 | 6.0 - 28.6 | EXTERNAL | | | ine Ratio | | | LAB | | + + + + + + | Calcium | 9.4 | 8.4 - 10.2 | EXTERNAL | | | | | mg/dL | LAB | | + + + + + + | Na | 137 | 132 - 143 | EXTERNAL | | | | | mmol/L | LAB | | + + + + + + | K | 4.3 | 3.6 - 5.1 | EXTERNAL | | | | | mmol/L | LAB | | + + + + + + | Cl | 92 (A) | 95 - 112 mmol/L | EXTERNAL | | | | | | LAB | | + + + + + + | CO2 | 34 (A) | 19 - 31 mmol/L | EXTERNAL | | | | | | LAB | | + + + + + + | Anion Gap | 15.3 | 7 - 21 mmol/L | EXTERNAL | | | | | | LAB | | + + + + + + | Estimated | 31 | mg/dL | EXTERNAL | | | [...]
--- OUTSIDE RECORDS SUMMARY | ~2019-05-31 | XMS | Encounter Summary ---
Demographics + + + | Address | [address] | | | [place] [address] | + + + | Home Phone [...] [place] | | | | | [address] | | + + + + + | Vonnie Martinez | ECON | Unknown | | + + + + + Care Team Providers + +------+ + | Care Drum Operator Name | Role | Phone | + +------+ + | Oscar Taylor PA-C | PCP | | + +------+ + Encounter Details +--------+ + + + + | Date | Type | Department | Care Team | Description | +--------+ + + + + | 11/11/ | Orders Only | [facility] | Conversion | | | 2017 | | NEPHROLOGY [place] | Transaction, | | | | | [address] | Provider Unknown | | | | | [address] [facility] | | | | | | [address] | (Fax) | | | | | [phone] | | | +--------+ + + + [...] [address] | | | | | | [place] [address] | | | | | | [phone] | | | | | | | | +--------+---------+ + + + documented as of this encounter Procedures + +--------+ + + + | Procedure Name | Priori | Date/Time | Associated Diagnosis | Comments | | | ty | | | | + +--------+ + + + | EXTERNAL LAB: CBC | Routin | 11/11/2016 | | Results [...]
--- OUTSIDE RECORDS SUMMARY | ~2019-05-31 | XMS | Encounter Summary ---
Demographics + + + | Address | [address] | | | [place] [address] | + + + | Home Phone | | + + + | Preferred Language | Unknown | + + + | Marital Status | Legally | + + + | Episcopalian Affiliation | Unknown | + + + [...] [place] | | | | | [address] | | + + + + + | Vonnie Martinez | ECON | Unknown | | + + + + + Care Team Providers + +------+ + | Care Retail Services Professional Name | Role | Phone | + [...] + + | 03/15/ | Refill | [facility] | [place], | Medication Refill | | 2019 | | CARDIOLOGY [place] | [address] | | | | | [address] | [facility], | | | | | [place], [place] | [place] [address] | | | | | [address] | [phone] | | | | | [phone] | | | +--------+--------+ + + + [...] | | | | | [place] [address] | | | | | | [phone] | | | | | | | | +--------+---------+ + + + documented as of this encounter Visit Diagnoses Not on filedocumented in this encounter"
--- OUTSIDE RECORDS SUMMARY | ~2019-05-31 | XMS | Encounter Summary ---
Demographics + + + | Address | [address] | | | [place] [address] | + + + | Home Phone [...] Author + + + | Author | [facility] | | | and [place] | + + + | Organization | [facility] | | | [...] [place] | | | | | [address] | | + + + + + | Vonnie Martinez | ECON | Unknown | | + + + + + Care Team Providers + +------+ + | Care Container Washer Name | Role | Phone | + +------+ + | Oscar Taylor PA-C | PCP | | + +------+ + Encounter Details +--------+ + + + + | Date | Type | Department | Care Team | Description | +--------+ + + + + | 11/02/ | Orders Only | [facility] | Conversion | | | 2019 | | NEPHROLOGY [place] | Transaction, | | | | | [address] | Provider Unknown | | | | | [address] [place] | | | | | | [address] | (Fax) | | | | | [phone] | | | +--------+ + + + [...] [address] | | | | | | [place] [address] | | | | | | [phone] | | | | | | | | +--------+---------+ + + + documented as of this encounter Procedures + +--------+ + + + | Procedure Name | Priori | Date/Time | Associated Diagnosis | Comments | | | ty | | | | + +--------+ + + + | URIC ACID | Routin | 11/02/2018 | | Results for this | | | e | 12:00 AM | | procedure are in the | | | | PDT | | results section. | + +--------+ + + + documented in this encounter Results Uric Acid (11/02/2018 12:00 AM PDT) + +-------+ + + + | Component | Value | Ref Range | Performed | Pathologist | | | | | At | Signature | + +-------+ + + + | Uric Acid | 3.6 | 2.3 - 6.6 | EXTERNAL | [...]
--- OUTSIDE RECORDS SUMMARY | ~2019-05-31 | XMS | Encounter Summary ---
Demographics + + + | Address | [address] | | | [place] [address] | + + + | Home Phone | | + + + | Preferred Language | Unknown | + + + | Marital Status | Legally | + + + | Oriental Orthodox Affiliation | Unknown | + + + | Race | Unknown | + + + | Ethnic Group | Unknown | + + + Author + + + | Author | [facility] | | | and [place] | + + + | Organization | [facility] | | | and [place] | + + + | Address | Unknown | + + + | Phone | Unavailable | + + + Support + + + + + | Name | Relationship | Address | Phone | + + + + + | Peeewe Watson | ECON | [address] | | | | [place] | | | | | [address] | | + + + + + | Vonnie Martinez | ECON | Unknown | | + + + + + Care Team Providers + +------+ + | Care Cut Out Press Operator Name | Role | Phone | + +------+ + PCP | Unavailable | + +------+ + Encounter Details +--------+ + + + + | Date | Type | Department | Care Team | Description | +--------+ + + + + | 03/07/ | Hospital | [facility] | Kulwinder Lima | | | 2006 | Encounter | MED CTR SLEEP | MD Amparo [address] | | | | | [place] [address] | [address] [place] | | | | | [place], [place] | [place] [address] | | | | | [address] | [phone] | | | | | [phone] | | | +--------+ + + + [...] SORIANO | | | | | | [place] [address] | | | | | | [phone] | | | | | | | | +--------+---------+ + + + documented as of this encounter Visit Diagnoses Not on filedocumented in this encounter"
--- OUTSIDE RECORDS SUMMARY | ~2019-05-31 | XMS | Encounter Summary ---
Demographics + + + | Address | [address] | | | [place] [address] | + + + | Home Phone | | + + + | Preferred Language | Unknown | + + + | Marital Status | Legally | + + + | Faith Affiliation | Unknown | + + + [...] [place] | | | | | [address] | | + + + + + | Vonnie Martinez | ECON | Unknown | | + + + + + Care Team Providers + +------+ + | Care Brilliandeer Lopper Name | Role | Phone | + +------+ + PCP | Unavailable | + +------+ + Encounter Details +--------+ + + + + | Date | Type | Department | Care Team | Description | +--------+ + + + + | 12/17/ | Hospital | [facility] | | | | 1998 | Encounter | MED CTR LABORATORY | | | | | | [address] | | | | | | [place] | | | | | | [address] | | | | | | [phone] | | | +--------+ + + + [...] | | | | | [place] [address] | | | | | | [phone] | | | | | | | | +--------+---------+ + + + documented as of this encounter Visit Diagnoses Not on filedocumented in this encounter"
--- OUTSIDE RECORDS SUMMARY | ~2019-05-31 | XMS | Encounter Summary ---
Demographics + + + | Address | [address] | | | [place] [address] | + + + | Home Phone | | + + + | Preferred Language | Unknown | + + + | Marital Status | Legally | + + + | Hoahaoism Affiliation | Unknown | + + + | Race | Unknown | + + + | Ethnic Group | Unknown | + + + Author + + + | Author | [facility] | | | and [place] | + + + | Organization | [facility] | | [...] [place] | | | | | [address] | | + + + + + | Vonnie Martinez | ECON | Unknown | | + + + + + Care Team Providers + +------+ + | Care Diving Supervisor Name | Role | Phone | + +------+ + | Oscar Taylor PA-C | PCP | | + +------+ + Reason for Visit Evaluate & Treat (Routine) +--------+ + + [...] | | (obstructive | Jessika B, | [place] | | | | | sleep | MD [address] | [place], | | | | | apnea) | [address] | [place] [address] | | | | | Procedures | [place], | Phone: | | | | | [place] | [place] [address] | [phone] | | | | | 6/>YRS SLEEP | | Fax: | | | | | 4/> ADDL | | [phone] | | | | | FAUSTO ATTND | | | | | | | NPSG | | | +--------+ + + + + + Encounter Details +--------+ + + + + | Date | Type | Department | Care Team | Description | +--------+ + + + + | 11/06/ | Hospital | [facility] | Offenstein, | CHEL (obstructive | | 2013 | Encounter | MED CTR SLEEP | Jessika Lewis MD | sleep apnea) | | | | [address] [place] | | | | | | [place] | | | | | | [address] | | | | | | [phone] | | | +--------+ + + + [...] + + documented as of this encounter Medications at Time of Discharge + + + +---------+ + + | Medication | Sig | Dispensed | Refills | Start | End Date | | | | | | Date | | + + + +---------+ + + | albuterol | Inhale 2 puffs into | | 0 | | | | (VENTOLIN HFA) 90 | the lungs every 6 | | | | | | mcg/puff inhaler | hours as needed. | | | | | + + + +---------+ + + | albuterol 2.5 mg/3 | Take 2.5 mg by | | 0 | | | | mL nebulizer | nebulization every 6 | | | | | | solutionIndications: | hours as needed. | | | | | | Chronic obstructive | | | | | | | asthma (HCC) | | | | | | + + + +---------+ + + | ALPRAZolam (XANAX | Take 1 mg by mouth | | 0 | 10/20/19 | | | XR) 1 mg 24 hr | nightly. | | | 14 | | | tablet | | | | | | + + + +---------+ + + | aspirin 81 mg EC | Take 81 mg by mouth | | 0 | | | | tablet | Daily. | | | | | + + + +---------+ + + | beclomethasone | Inhale 2 puffs into | | 0 | | | | (QVAR) 40 mcg/puff | the lungs 2 times | | | | | | inhaler | daily. | | | | | + + + +---------+ + + | Blood Glucose | 1 each by Does not | | 0 | 10/18/19 | | | Monitoring Suppl | apply route daily. | | | 14 | | | (ACCU-CHEK MARII | | | | | | | PLUS) w/Device KIT | | | | | | + + + +---------+ + + | carvedilol (COREG) | Take 25 mg by mouth | | 0 | | | | 25 mg tablet | 2 times daily (with | | | | | | | breakfast & dinner). | | | | | + + + +---------+ + + | gabapentin | Take 600 mg by mouth | | 0 | | | | (NEURONTIN) 300 mg | 3 times daily. | | | | | | capsule | | | | | | + + + +---------+ + + | Glucose Blood | 1 each by Other | | 0 | 10/18/19 | | | (BLOOD GLUCOSE TEST | route 4 (four) times | | | 14 | | | STRIPS) STRP | daily. Use as | | | | | | | instructed | | | | | + + + +---------+ + + | | Take 1 tablet by | | 0 | | | | HYDROcodone-acetamin | mouth every 6 hours | | | | | | ophen (NORCO) 10-325 | as needed. | | | | | | mg per tablet | | | | | | + + + +---------+ + + | insulin aspart | Inject under the | | 0 | | | | (NOVOLOG FLEXPEN) | skin. Take 15 units | | | | | | 100 units/mL | before each meal ( 3 | | | | | | injection | times daily). Than | | | | | | | take PRN | | | | | + + + +---------+ + + | insulin aspart | Inject 15 Units into | | 0 | 10/18/19 | | | (NOVOLOG) 100 | the skin 3 (three) | | | 14 | | | units/mL injection | times daily before | | | | | | | meals. | | | | | + + + +---------+ + + | insulin glargine | Inject 35 Units | | 0 | | | | (LANTUS) 100 | under the skin | | | | | | units/mL injection | nightly. | | | | | + + + +---------+ + + | lisinopril | Take 10 mg by mouth | | 0 | | | | (PRINIVIL, ZESTRIL) | Daily. | | | | | | 10 mg tablet | | | | | | + + + +---------+ + + | metformin | Take 1,000 mg by | | 0 | | | | (GLUCOPHAGE) 1000 MG | mouth 2 times daily | | | | | | tablet | (with breakfast & | | | | | | | dinner). | | | | | + + + +---------+ + + | omeprazole | Take 20 mg by mouth | | 0 | | | | (PRILOSEC) 20 mg | every morning | | | | | | capsule | (before breakfast). | | | | | + + + +---------+ + + | amitriptyline | Take 25 mg by mouth | | 0 | | | | (ELAVIL) 25 mg | nightly. | | | | 4 | | tablet | | | | | | + + + +---------+ + + | buPROPion | Take 150 mg by mouth | | 0 | | | | (WELLBUTRIN SR) 150 | Daily. | | | | 4 | | mg 12 hr tablet | | | | | | + + + +---------+ + + | | Take 25 mg by mouth | | 0 | | | | hydrochlorothiazide | Daily. | | | | 4 | | 25 mg tablet | | | | | | + + + +---------+ + + | Respiratory | Res Med S9 auto CPAP | 1 each | 99 | 10/21/19 | | | Therapy Supplies | 5-15 cm H2O. Heater | | | 13 | 4 | | MISCIndications: CHEL | and Humidifier. All | | | | | | (obstructive sleep | necessary | | | | | | apnea) | supplies.AHI 22.8. | | | | | | | Diagnosis | | | | | | | Code(s)327.23. | | | | | | | Length of Need | | | | | | | lifetime. Please | | | | | | | send order to [facility] | | | | | [facility]. Send copy | | | | | | | of sleep study from | | | | | | | 2005 with order. | | | | | + + + +---------+ + + documented as of this encounter [...] SORIANO | | | | | | [place] [address] | | | | | | [phone] | | | | | | | | +--------+---------+ + + + documented as of this encounter Procedures + +--------+ + + + | Procedure Name | Priori | Date/Time | Associated Diagnosis | Comments | | | ty | | | | + +--------+ + + + | DIAGNOSTIC REPORT - | | 11/06/2013 | | | | EXTERNAL SCAN | | 12:00 AM | | | | | | PDT | | | + +--------+ + + + documented in this encounter Visit Diagnoses + + | Diagnosis | + + | CHEL (obstructive sleep apnea) Obstructive sleep apnea (adult) (pediatric) | + + documented in this encounter"
--- OUTSIDE RECORDS SUMMARY | ~2019-05-31 | XMS | Encounter Summary ---
Demographics + + + | Address | [address] | | | [place] [address] | + + + | Home Phone [...] Author + + + | Author | [facility] | | | and [place] | + + + | Organization | [facility] | | | and [...] [place] | | | | | [address] | | + + + + + | Vonnie Martinez | ECON | Unknown | | + + + + + Care Team Providers + +------+ + | Care Director Of Market Research Name | Role | Phone | + [...] + + | 03/13/ | Refill | [facility] | Sabas Gaxiola, | Medication Refill | | 2019 | | CARDIOLOGY MISSY | [address] | | | | | [address] | [place] [facility], | | | | | [place], [place] | [place] [address] | | | | | [address] | [phone] | | | | | [phone] | | | +--------+--------+ + + + [...] | | | | | [place] [address] | | | | | | [phone] | | | | | | | | +--------+---------+ + + + documented as of this encounter Visit Diagnoses Not on filedocumented in this encounter"
--- OUTSIDE RECORDS SUMMARY | ~2019-05-31 | XMS | Encounter Summary ---
Demographics + + + | Address | [address] | | | [place] [address] | + + + | Home Phone | | + + + | Preferred Language | Unknown | + + + | Marital Status | Legally | + + + | Mormonism Affiliation | Unknown | + + + | Race | Unknown | + + + | Ethnic Group | Unknown | + + + Author + + + | Author | [facility] | | | and [place] | + + + | Organization | [facility] | | | and [...] [place] | | | | | [address] | | + + + + + | Vonnie Martinez | ECON | Unknown | | + + + + + Care Team Providers + +------+ + | Care Manager Intensive Care Unit Name | Role | Phone | + [...] 2017 | | [address] | Amos OCCUPATIONAL HEALTH MANAGER [address] | | | | [address] | [place], | | | | | [place] | [place] [address] [place], | | | | | [address] | [place] [address] | | | | | [phone] | [phone] | | | | | | | [...] | | | | | [place] [address] | | | | | | [phone] | | | | | | | [...] | | | Doppler was perfomed at [facility]. Study: Definity | | | contrast agent [...] m/s Lateral E/e': 15.47 | | | Hand Woven Carpet And Rug Mender: WILFRED Authenticated by: Sabas Gaxiola Report | [...] and color flow Doppler was perfomed at [facility].Study: Definity | | contrast agent was used [...] cmLVPWd: 1.05 cmLVOT Area: 3.85 | | [id number] Diam: 2.21 cm%FS: 30.62 %EF(Teich): 58.20 %ESV(Teich): [...] A4C: 6.38 cmLAAs A4C: | | 16.81 [id number] A-L A4C: 50.38 mlLALs A4C: 4.76 cmRAAs: 13.17 [id number] A-L: 33.85 | | mlRAESV MOD: 31.37 mlRALs: 4.35 cmAV maxP.73 mmHgAV meanP.53 mmHgAV | | Vmax: 1.78 m/Arianna Vmean: 1.06 m/Arianna VTI: 25.77 cmAVA Vmax: 2.77 cm2AVA (VTI): | | 2.88 [id number] Vmax: 0.00 cm2/m2AVAI (VTI): 0.00 cm2/m2LVOT maxP.59 mmHgLVOT | | meanP.01 mmHgLVSI Dopp: 31.91 ml/m2LVSV Dopp: 74.36 mlLVOT Vmax: 1.28 | | m/sLVOT Vmean: 0.79 m/sLVOT VTI: 19.28 cmMV A Robles: 0.95 m/sMV DecT: 194.50 msMV | | E Robles: 0.72 m/sMV E/A Ratio: 0.77MV PHT: 56.40 msMVA By PHT: 3.90 gx2Lscsay e': | | 0.07 m/sSeptal E/e': 9.08Lateral e': 0.04 m/sLateral E/e': 15.47 Hand Woven Carpet And Rug Mender: | | DHAuthenticated by: Sabas Vila Date/Time: [...] | |Lateral E/e': 15.47 | | | |Hand Woven Carpet And Rug Mender: | |Authenticated by: Sabas Gaxiola | |Report [...]
--- OUTSIDE RECORDS SUMMARY | ~2019-05-31 | XMS | Encounter Summary ---
Demographics + + + | Address | [address] | | | [place] [address] | + + + | Home Phone | | + + + | Preferred Language | Unknown | + + + | Marital Status | Legally | + + + | Sabianist Affiliation | Unknown | + + + | Race | Unknown | + + + | Ethnic Group | Unknown | + + + Author + + + | Author | [facility] | | | and [place] | + + + | Organization | [facility] | | [...] [place] | | | | | [address] | | + + + + + | Vonnie Martinez | ECON | Unknown | | + + + + + Care Team Providers + +------+ + | Care Gis Engineer Name | Role | Phone | [...] Description | +--------+--------+ + + + | 03/17/ | Refill | [facility] | Sabas Gaxiola, | Medication Refill | | 2019 | | CARDIOLOGY MISSY | [address] | | | | | [address] | [place] [facility], | | | | | [place], [place] | [place] [address] | | | | | [address] | [phone] | | | | | [phone] | | | +--------+--------+ + + + [...] | | | | | [place] [address] | | | | | | [phone] | | | | | | | | +--------+---------+ + + + documented as of this encounter Visit Diagnoses Not on filedocumented in this encounter"
--- OUTSIDE RECORDS SUMMARY | ~2019-05-31 | XMS | Encounter Summary ---
Demographics + + + | Address | [address] | | | [place] [address] | + + + | Home Phone | | + + + | Preferred Language | Unknown | + + + | Marital Status | Legally | + + + | Bahai Affiliation | Unknown | + + + [...] [place] | | | | | [address] | | + + + + + | Vonnie Martinez | ECON | Unknown | | + + + + + Care Team Providers + +------+ + | Care Shower Enclosure Installer Name | Role | Phone | + +------+ + PCP | Unavailable | + +------+ + Encounter Details +--------+ + + + + | Date | Type | Department | Care Team | Description | +--------+ + + + + | 10/23/ | Hospital | [facility] | Kulwinder Lima | | | 2006 | Encounter | MED CTR SLEEP | MD Amparo [address] | | | | | [place] [address] | [address] [place] | | | | | [place], [place] | [place] [address] | | | | | [address] | [phone] | | | | | [phone] | | | +--------+ + + + [...] SORIANO | | | | | | [place] [address] | | | | | | [phone] | | | | | | | | +--------+---------+ + + + documented as of this encounter Visit Diagnoses Not on filedocumented in this encounter"
--- OUTSIDE RECORDS SUMMARY | ~2019-05-31 | XMS | Encounter Summary ---
Demographics + + + | Address | [address] | | | [place] [address] | + + + | Home Phone | | + + + | Preferred Language | Unknown | + + + | Marital Status | Legally | + + + | Yarsanism Affiliation | Unknown | + + + [...] [place] | | | | | [address] | | + + + + + | Vonnie Martinez | ECON | Unknown | | + + + + + Care Team Providers + +------+ + | Care Rewind Operator Name | Role | Phone | [...] 2017 | | [address] | Amos HOUSING QUALITY STANDARD INSPECTOR [address] | | | | | [address] | [place], | | | | | [place] | [address] [place], | | | | | [address] | [place] [address] | | | | | [phone] | [phone] | | | | | | | [...] | | | | | [place] [address] | | | | | | [phone] | | | | | | | [...] | | | Doppler was perfomed at [facility]. Study: Definity | | | contrast agent [...] m/s Lateral E/e': 15.47 | | | Museum Service Scheduler: WILFRED Authenticated by: Sabas Gaxiola Report | [...] and color flow Doppler was perfomed at [facility].Study: Definity | | contrast agent was used [...] cmLVPWd: 1.05 cmLVOT Area: 3.85 | | [id number] Diam: 2.21 cm%FS: 30.62 %EF(Teich): 58.20 %ESV(Teich): [...] A4C: 6.38 cmLAAs A4C: | | 16.81 [id number] A-L A4C: 50.38 mlLALs A4C: 4.76 cmRAAs: 13.17 [id number] A-L: 33.85 | | mlRAESV MOD: 31.37 mlRALs: 4.35 cmAV maxP.73 mmHgAV meanP.53 mmHgAV | | Vmax: 1.78 m/Arianna Vmean: 1.06 m/Arianna VTI: 25.77 cmAVA Vmax: 2.77 cm2AVA (VTI): | | 2.88 hk2GPUJ Vmax: 0.00 cm2/m2AVAI (VTI): 0.00 cm2/m2LVOT maxP.59 mmHgLVOT | | meanP.01 mmHgLVSI Dopp: 31.91 ml/m2LVSV Dopp: 74.36 mlLVOT Vmax: 1.28 | | m/sLVOT Vmean: 0.79 m/sLVOT VTI: 19.28 cmMV A Robles: 0.95 m/sMV DecT: 194.50 msMV | | E Robles: 0.72 m/sMV E/A Ratio: 0.77MV PHT: 56.40 msMVA By PHT: 3.90 lm2Hexyrf e': | | 0.07 m/sSeptal E/e': 9.08Lateral e': 0.04 m/sLateral E/e': 15.47 Museum Service Scheduler: | | DHAuthenticated by: Sabas Vila Date/Time: [...] | |Lateral E/e': 15.47 | | | |Museum Service Scheduler: | |Authenticated by: Sabas Gaxiola | |Report [...]
--- OUTSIDE RECORDS SUMMARY | ~2019-05-31 | XMS | Encounter Summary ---
Demographics + + + | Address | [address] | | | [place] [address] | + + + | Home Phone | | + + + | Preferred Language | Unknown | + + + | Marital Status | Legally | + + + | Scientology Affiliation | Unknown | + + + | Race | Unknown | + + + | Ethnic Group | Unknown | + + + Author + + + | Author | [facility] | | | and [place] | + + + | Organization | [facility] | | | and [...] [place] | | | | | [address] | | + + + + + | Vonnie Martinez | ECON | Unknown | | + + + + + Care Team Providers + +------+ + | Care Breakfast Host Name | Role | Phone | + [...] | | | | OFFICE | [place] [address] | | | | | | VISIT | Phone: | | | | | | REGULAR | [phone] | | | | | | | Fax: | | | | | | | [phone] | | +--------+--------+ + + + + [...] | (Primary Dx); | | | | [place] [address] | | Chronic obstructive | | | | [phone] | | asthma | +--------+---------+ + + [...] you can pick this up at [facility]. I would call the [facility] to make an appointment to pick it up so they can show you how to use it. They can also fit y ou to a mask. I will then see you back in about 2 weeks with a download from the machine. To get the download, you will take the machine or the chip from the back of the machine in to the [facility] and they can download information from the [...] or other sinus rinse products at a [facility] (such as Apptimize Sinus Rinse Kit). 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 Social History Main Topics Smoking status: Former Smoker -- 1.0 packs/day for 40 years Quit date: 08/04/2012 Smokeless tobacco: Never Used Alcohol Use: No Drug Use: Yes Comment: clean for 15 years, used cocaine for only 2 years Sexually Active: None Other Topics Concern None Social History Narrative Lives in [place] with her grandchildren. She is from her [...] SYRINGE 1ML/31G 31G X 5/16" 1 ML [facility] Respiratory Therapy Supplies [facility] Res Med S9 auto CPAP 5-15 cm H2O. Heater and Humidifi er. All necessary supplies.AHI 22.8. Diagnosis Code(s)327.23. Length of Need lifetime. Gian wall send order to [facility] [place]. Send copy of sleep study from 2005 [...] a financial issu e). Prescribed auto CPAP, [id number] as a starting point as that is [...] daughter with greater than 50% spent in certified alcohol counselor ing and coordination of care regarding [...] made to ensure accuracy; however, inadvertent computerized edger feeder errors may be pre sent. Electronically signed [...] SORIANO | | | | | | [place] [address] | | | | | | [phone] | | | | | | | | +--------+---------+ + + + documented as of this encounter Visit Diagnoses + + | Diagnosis | + + | CHEL (obstructive sleep apnea) - Primary Obstructive sleep apnea (adult) (pediatric) | + + | Chronic obstructive asthma Chronic obstructive asthma, unspecified | + + documented in this encounter
--- OUTSIDE RECORDS SUMMARY | ~2019-05-31 | XMS | Encounter Summary ---
Demographics + + + | Address | [address] | | | [place] [address] | + + + | Home Phone | | + + + | Preferred Language | Unknown | + + + | Marital Status | Legally | + + + | Orthodox Affiliation | Unknown | + + [...] [place] | | | | | [address] | | + + + + + | Vonnie Martinez | ECON | Unknown | | + + + + + Care Team Providers + +------+ + | Care Firer Automatic Stoker Name | Role | Phone | + +------+ + PCP | Unavailable | + +------+ + Encounter Details +--------+ + + + + | Date | Type | Department | Care Team | Description | +--------+ + + + + | 10/23/ | Hospital | [facility] | Kulwinder Lima | | | 2006 | Encounter | MED CTR SLEEP | MD Amparo [address] | | | | | [place] [address] | [address] [place] | | | | | [place], [place] | [place] [address] | | | | | [address] | [phone] | | | | | [phone] | | | +--------+ + + + [...] SORIANO | | | | | | [place] [address] | | | | | | [phone] | | | | | | | | +--------+---------+ + + + documented as of this encounter Visit Diagnoses Not on filedocumented in this encounter"
--- OUTSIDE RECORDS SUMMARY | ~2019-05-31 | XMS | Encounter Summary ---
Demographics + + + | Address | [address] | | | [place] [address] | + + + | Home Phone | | + + + | Preferred Language | Unknown | + + + | Marital Status | Legally | + + + | Restoration Affiliation | Unknown | + + + | Race | Unknown | + + + | Ethnic Group | Unknown | + + + Author + + + | Author | [facility] | | | and [place] | + + + | Organization | [facility] | | [...] [place] | | | | | [address] | | + + + + + | Vonnie Martinez | ECON | Unknown | | + + + + + Care Team Providers + +------+ + | Care Wind Tunnel Technician Name | Role | Phone | + +------+ + | Oscar Taylor PA-C | PCP | | + +------+ + Encounter Details +--------+ + + + + | Date | Type | Department | Care Team | Description | +--------+ + + + + | 08/13/ | Orders Only | [facility] | Lula Gaxiola, | | | 2018 | | CONVERSION 888 | MD [address] | | | | | [address] | [place], | | | | | [place], [place] | [place] [address] | | | | | [address] | [phone] | | | | | [phone] | | | +--------+ + + + [...] [place] | | | | | | [place] [address] | | | | | | [phone] | | | | | | | | +--------+---------+ + + + documented as of this encounter Procedures + +--------+ + + + | Procedure Name | Priori | Date/Time | Associated Diagnosis | Comments | | | ty | | | | + +--------+ + + + | ECHO INTERPRETATION | Routin | 08/13/2017 | | Results for this | | OF OUTSIDE FILMS | e | 7:26 AM | | procedure are in the | | | | PST | | results section. | + +--------+ + + + documented in this encounter Results ECHO Interpretation of Outside Films (08/13/2017 7:26 AM PST) + + | Specimen | + + | | + + + + + | Impressions | Performed At | + + + | 1. This was a technically difficult study with suboptimal views. 2. | | | Grossly normal LV size, with hyperdynamic systolic function. On | | | limited views, the LVEF is estimated at > 70%. Unable to comment on | | | regional wall motion. 3. The RV was not well visualized. On limited | | | views, there appears to be normal RV size and systolic function. 4. | | | Valvular structures are poorly visualized. Doppler evaluation reveals | | | no significant functional valvular abnormalities. | | + + + + + + | Narrative | Performed At | + + + | Patient Name: Rebeca Watson Date of : 1955 | | | Performing Physician: LULA GAXIOLA MD | | | | | | INDICATIONS Pedal edema CONCLUSIONS 1. | | | This was a technically difficult study with suboptimal views. 2. | | | Grossly normal LV size, with hyperdynamic systolic function. On | | | limited views, the LVEF is estimated at > 70%. Unable to comment on | | | regional wall motion. 3. The RV was not well visualized. On limited | | | views, there appears to be normal RV size and systolic function. 4. | | | Valvular structures are poorly visualized. Doppler evaluation reveals | | | no significant functional valvular abnormalities. FINDINGS | | | -------- ECG rhythm: Sinus rhythm. Study: A 2-dimensional | | | transthoracic echocardiogram with m-mode, spectral and color flow | | | Doppler was perfomed. Study: This was a technically difficult study | | | with suboptimal views. Left Ventricle: The left ventricle cavity size | | | is normal. Left Ventricle: Left ventricular wall thickness is | | | normal. Left Ventricle: No regional wall motion abnormalities. Left | | | Ventricle: The diastolic filling pattern is normal for the age of the | | | patient. Left Ventricle: Assessment of diastolic function is | | | indeterminate (there was grade 1 diastolic dysfunction reported on the | | | previous study, using the old ASE criteria). Left Ventricle: Grossly | | | normal LV size, with hyperdynamic systolic function. On limited | | | views, the LVEF is estimated at > 70%. Unable to comment on regional | | | wall motion. Right Ventricle: The RV was not well visualized. On | | | limited views, there appears to be normal RV size and systolic | | | function. Left Atrium: The left atrium is normal in size. Right | | | Atrium: The right atrium is normal in size. Aortic Valve: The aortic | | | valve was not well visualized. Aortic Valve: The aortic valve appears | | | to be trileaflet. Aortic Valve: There is no evidence of aortic | | | regurgitation. Aortic Valve: There is no evidence of aortic stenosis. | | | Mitral Valve: The mitral valve was not well visualized. Mitral | | | Valve: There is trace mitral regurgitation. Tricuspid Valve: The | | | tricuspid valve was not well visualized. Tricuspid Valve: Pulmonary | | | artery systolic pressure could not be assessed due to the absence of | | | adequate TR jet. Pulmonic Valve: The pulmonic valve was not well | | | visualized. The Doppler evaluation reveals no evidence of pulmonic | | | stenosis or regurgitation. Pericardium: There is no pericardial | | | effusion. IVC/Hepatic Veins: The IVC was not well visualized. Aorta: | | | The aortic root and ascending aorta are normal in size. The | | | aortic arch was not visualized. Mass: No mass visualized Thrombus: | | | No clot visualized Thrombus: No vegetation visualized. Septum: No | | | ASD observed. Septum: No VSD observed. Contrast: Unable to do | | | Definity due to positioning. MEASUREMENTS Ao asc: | | | 3.13 cm Ao sinus: 2.[address] junct: 2.79 cm LA Major: | | | 4.80 cm EDV(Teich): 131.26 ml IVSd: 0.97 cm LVIDd: 5.23 | | | cm LVPWd: 1.04 cm LVOT Area: 3.66 cm2 LVOT Diam: 2.16 cm | | | %FS: 36.17 % EF(Teich): 65.42 % ESV(Teich): 45.38 ml | | | LVIDs: 3.33 cm SV(Teich): 85.87 ml RA Major: 4.89 cm RV | | | Major: 6.59 cm RV Minor: 3.53 cm RVIDd: 2.97 cm LVEF MOD | | | A2C: 63.12 % SV MOD A2C: 65.42 ml LVEF MOD A4C: 71.06 % SV | | | MOD A4C: 75.13 ml EF Biplane: 67.15 % LVEDV MOD BP: 115.19 | | | ml LVESV MOD BP: 37.83 ml LVEDV MOD A2C: 103.63 ml LVLd A2C: | | | 8.49 cm LVEDV MOD A4C: 105.72 ml LVLd A4C: 7.80 cm LVESV | | | MOD A2C: 38.21 ml LVLs A2C: 6.67 cm LVESV MOD A4C: 30.59 ml | | | LVLs A4C: 6.25 cm LAESV(A-L): 56.27 ml LAESV Index (A-L): | | | 23.84 ml/m2 LAAs A2C: 18.64 cm2 LAESV A-L A2C: 56.14 ml LALs | | | A2C: 5.25 cm LAAs A4C: 17.78 cm2 LAESV A-L A4C: 53.67 ml | | | LALs A4C: 5.00 cm RAAs: 17.49 cm2 RAESV A-L: 52.33 ml | | | RAESV MOD: 50.61 ml RALs: 4.96 cm TAPSE: 3.12 cm AV maxPG: | | | 13.18 mmHg AV meanP.88 mmHg AV Vmax: 1.81 m/s AV | | | Vmean: 1.17 m/s AV VTI: 33.78 cm ANTHONY Vmax: 2.36 cm2 ANTHONY | | | (VTI): 2.47 cm2 AVAI Vmax: 0.00 cm2/m2 AVAI (VTI): 0.00 | | | cm2/m2 LVOT maxP.47 mmHg LVOT meanP.68 mmHg LVSI | | | Dopp: 35.40 ml/m2 LVSV Dopp: 83.55 ml LVOT Vmax: 1.16 m/s | | | LVOT Vmean: 0.74 m/s LVOT VTI: 22.77 cm MV A Robles: 1.04 m/s | | | MV DecT: 277.62 ms MV E Robles: 0.90 m/s MV E/A Ratio: 0.86 | | | MV PHT: 80.51 ms MVA By PHT: 2.73 cm2 Septal e': 0.05 m/s | | | Septal E/e': 17.90 Lateral e': 0.05 m/s Lateral E/e': 15.62 | | | RV S': 0.17 m/s Tack Welder: Authenticated by: LULA | | | MD NANDO Report Date/Time: 08-18-2017 17:9:28 | | + + + + + | Procedure Note | + + | Atif, Rad Conversion - 02/09/2019 3:55 PM PDT Patient Name: Darek Watson of | | : 1955 Performing Physician: LULA GAXIOLA, | | MD INDICATIONS P | | edal edema CONCLUSIONS 1. This was a technically difficult study with | | suboptimal views.2. Grossly normal LV size, with hyperdynamic systolic function. On | | limited views, the LVEF is estimated at > 70%. Unable to comment on regional wall | | motion.3. The RV was not well visualized. On limited views, there appears to be normal | | RV size and systolic function. 4. Valvular structures are poorly visualized. Doppler | | evaluation reveals no significant functional valvular abnormalities. FINDINGS--------ECG | | rhythm: Sinus rhythm.Study: A 2-dimensional transthoracic echocardiogram with m-mode, | | spectral and color flow Doppler was perfomed.Study: This was a technically difficult | | study with suboptimal views.Left Ventricle: The left ventricle cavity size is | | normal.Left Ventricle: Left ventricular wall thickness is normal.Left Ventricle: No | | regional wall motion abnormalities.Left Ventricle: The diastolic filling pattern is | | normal for the age of the patient.Left Ventricle: Assessment of diastolic function is | | indeterminate (there was grade 1 diastolic dysfunction reported on the previous study, | | using the old ASE criteria).Left Ventricle: Grossly normal LV size, with hyperdynamic | | systolic function. On limited views, the LVEF is estimated at > 70%. Unable to comment | | on regional wall motion.Right Ventricle: The RV was not well visualized. On limited | | views, there appears to be normal RV size and systolic function.Left Atrium: The left | | atrium is normal in size.Right Atrium: The right atrium is normal in size.Aortic Valve: | | The aortic valve was not well visualized.Aortic Valve: The aortic valve appears to be | | trileaflet.Aortic Valve: There is no evidence of aortic regurgitation.Aortic Valve: | | There is no evidence of aortic stenosis.Mitral Valve: The mitral valve was not well | | visualized.Mitral Valve: There is trace mitral regurgitation.Tricuspid Valve: The | | tricuspid valve was not well visualized.Tricuspid Valve: Pulmonary artery systolic | | pressure could not be assessed due to the absence of adequate TR jet.Pulmonic Valve: The | | pulmonic valve was not well visualized. The Doppler evaluation reveals no evidence of | | pulmonic stenosis or regurgitation.Pericardium: There is no pericardial | | effusion.IVC/Hepatic Veins: The IVC was not well visualized.Aorta: The aortic root and | | ascending aorta are normal in size. The aortic arch was not visualized.Mass: No mass | | visualizedThrombus: No clot visualizedThrombus: No vegetation visualized.Septum: No ASD | | observed.Septum: No VSD observed.Contrast: Unable to do Definity due to positioning. | | MEASUREMENTS Ao asc: 3.13 cmAo sinus: 2.[address] junct: 2.79 cmLA | | Major: 4.80 cmEDV(Teich): 131.26 mlIVSd: 0.97 cmLVIDd: 5.23 cmLVPWd: 1.04 | | cmLVOT Area: 3.66 [id number] Diam: 2.16 cm%FS: 36.17 %EF(Teich): 65.42 %ESV(Teich): | | 45.38 mlLVIDs: 3.33 cmSV(Teich): 85.87 mlRA Major: 4.89 cmRV Major: 6.59 cmRV | | Minor: 3.53 cmRVIDd: 2.97 cmLVEF MOD A2C: 63.12 %SV MOD A2C: 65.42 mlLVEF MOD | | A4C: 71.06 %SV MOD A4C: 75.13 mlEF Biplane: 67.15 %LVEDV MOD BP: 115.19 mlLVESV | | MOD BP: 37.83 mlLVEDV MOD A2C: 103.63 mlLVLd A2C: 8.49 cmLVEDV MOD A4C: 105.72 | | mlLVLd A4C: 7.80 cmLVESV MOD A2C: 38.21 mlLVLs A2C: 6.67 cmLVESV MOD A4C: 30.59 | | mlLVLs A4C: 6.25 cmLAESV(A-L): 56.27 mlLAESV Index (A-L): 23.84 ml/m2LAAs A2C: | | 18.64 [id number] A-L A2C: 56.14 mlLALs A2C: 5.25 cmLAAs A4C: 17.78 [id number] A-L A4C: | | 53.67 mlLALs A4C: 5.00 cmRAAs: 17.49 [id number] A-L: 52.33 mlRAESV MOD: 50.61 | | mlRALs: 4.96 cmTAPSE: 3.12 cmAV maxP.18 mmHgAV meanP.88 mmHgAV Vmax: | | 1.81 m/Arianna Vmean: 1.17 m/Arianna VTI: 33.78 cmAVA Vmax: 2.36 cm2AVA (VTI): 2.47 | | [id number] Vmax: 0.00 cm2/m2AVAI (VTI): 0.00 cm2/m2LVOT maxP.47 mmHgLVOT meanPG: | | 2.68 mmHgLVSI Dopp: 35.40 ml/m2LVSV Dopp: 83.55 mlLVOT Vmax: 1.16 m/sLVOT Vmean: | | 0.74 m/sLVOT VTI: 22.77 cmMV A Robles: 1.04 m/sMV DecT: 277.62 msMV E Robles: 0.90 | | m/sMV E/A Ratio: 0.86MV PHT: 80.51 msMVA By PHT: 2.73 fl5Hnrlpr e': 0.05 | | m/sSeptal E/e': 17.90Lateral e': 0.05 m/sLateral E/e': 15.62RV S': 0.17 m/s | | Tack Welder:Authenticated by: Artemio DOWNING Date/Time: 08-18-2017 17:9:28 | | IMPRESSION: 1. This was a technically difficult study with suboptimal views.2. Grossly | | normal LV size, with hyperdynamic systolic function. On limited views, the LVEF is | | estimated at > 70%. Unable to comment on regional wall motion.3. The RV was not well | | visualized. On limited views, there appears to be normal RV size and systolic function. | | 4. Valvular structures are poorly visualized. Doppler evaluation reveals no significant | | functional valvular abnormalities. | |IVSd: 0.97 cm | |LVIDd: 5.23 cm | |LVPWd: 1.04 cm | |LVOT Area: 3.66 cm2 | |LVOT Diam: 2.16 cm | |%FS: 36.17 % | |EF(Teich): 65.42 % | |ESV(Teich): 45.38 ml | |LVIDs: 3.33 cm | |SV(Teich): 85.87 ml | |RA Major: 4.89 cm | |RV Major: 6.59 cm | |RV Minor: 3.53 cm | |RVIDd: 2.97 cm | |LVEF MOD A2C: 63.12 % | |SV MOD A2C: 65.42 ml | |LVEF MOD A4C: 71.06 % | |SV MOD A4C: 75.13 ml | |EF Biplane: 67.15 % | |LVEDV MOD BP: 115.19 ml | |LVESV MOD BP: 37.83 ml | |LVEDV MOD A2C: 103.63 ml | |LVLd A2C: 8.49 cm | |LVEDV MOD A4C: 105.72 ml | |LVLd A4C: 7.80 cm | |LVESV MOD A2C: 38.21 ml | |LVLs A2C: 6.67 cm | |LVESV MOD A4C: 30.59 ml | |LVLs A4C: 6.25 cm | |LAESV(A-L): 56.27 ml | |LAESV Index (A-L): 23.84 ml/m2 | |LAAs A2C: 18.64 cm2 | |LAESV A-L A2C: 56.14 ml | |LALs A2C: 5.25 cm | |LAAs A4C: 17.78 cm2 | |LAESV A-L A4C: 53.67 ml | |LALs A4C: 5.00 cm | |RAAs: 17.49 cm2 | |RAESV A-L: 52.33 ml | |RAESV MOD: 50.61 ml | |RALs: 4.96 cm | |TAPSE: 3.12 cm | |AV maxP.18 mmHg | |AV meanP.88 mmHg | |AV Vmax: 1.81 m/s | |AV Vmean: 1.17 m/s | |AV VTI: 33.78 cm | |ANTHONY Vmax: 2.36 cm2 | |ANTHONY (VTI): 2.47 cm2 | |AVAI Vmax: 0.00 cm2/m2 | |AVAI (VTI): 0.00 cm2/m2 | |LVOT maxP.47 mmHg | |LVOT meanP.68 mmHg | |LVSI Dopp: 35.40 ml/m2 | |LVSV Dopp: 83.55 ml | |LVOT Vmax: 1.16 m/s | |LVOT Vmean: 0.74 m/s | |LVOT VTI: 22.77 cm | |MV A Robles: 1.04 m/s | |MV DecT: 277.62 ms | |MV E Robles: 0.90 m/s | |MV E/A Ratio: 0.86 | |MV PHT: 80.51 ms | |MVA By PHT: 2.73 cm2 | |Septal e': 0.05 m/s | |Septal E/e': 17.90 | |Lateral e': 0.05 m/s | |Lateral E/e': 15.62 | |RV S': 0.17 m/s | | | |Tack Welder: | |Authenticated by: LULA GAXIOLA MD | |Report Date/Time: 08-18-2017 17:9:28 | | | |IMPRESSION: | |1. This was a technically difficult study with suboptimal views. | |2. Grossly normal LV size, with hyperdynamic systolic function. On limited views, the LVEF is estimated at > 70%. Unable to comment on regional wall motion. | |3. The RV was not well visualized. On limited views, there appears to be normal RV size an d systolic function. 4. Valvular structures are poorly visualized. Doppler evaluation reveal s no significant functional valvular abnormalities. | + + documented in this encounter Visit Diagnoses Not on filedocumented in this encounter"
--- OUTSIDE RECORDS SUMMARY | ~2019-05-31 | XMS | Encounter Summary ---
Demographics + + + | Address | [address] | | | [place] [address] | + + + | Home Phone | | + + + | Preferred Language | Unknown | + + + | Marital Status | Legally | + + + | Shinto Affiliation | Unknown | + + + | Race | Unknown | + + + | Ethnic Group | Unknown | + + + Author + + + | Author | [facility] | | | and [place] | + + + | Organization | [facility] | | | [...] [place] | | | | | [address] | | + + + + + | Vonnie Martinez | ECON | Unknown | | + + + + + Care Team Providers + +------+ + | Care Senior Control Systems Engineer Name | Role | Phone | [...] | | [address] | [place], | | | | | [place], [place] | [place] [address] | | | | | [address] | [phone] | | | | | [phone] | | | +--------+ + + + [...] [place] | | | | | | [place] [address] | | | | | | [phone] | | | | | | | [...] | | | RV S': 0.17 m/s Asw/Asuw Tactical Air Controller: Authenticated by: LULA | | | MD [...] cmLVPWd: 1.04 | | cmLVOT Area: 3.66 [id number] Diam: 2.16 cm%FS: 36.17 %EF(Teich): 65.42 %ESV(Teich): [...] (A-L): 23.84 ml/m2LAAs A2C: | | 18.64 [id number] A-L A2C: 56.14 mlLALs A2C: 5.25 cmLAAs A4C: 17.78 [id number] A-L A4C: | | 53.67 mlLALs A4C: 5.00 cmRAAs: 17.49 [id number] A-L: 52.33 mlRAESV MOD: 50.61 | | mlRALs: 4.96 cmTAPSE: 3.12 cmAV maxP.18 mmHgAV meanP.88 mmHgAV Vmax: | | 1.81 m/Arianna Vmean: 1.17 m/Arianna VTI: 33.78 cmAVA Vmax: 2.36 cm2AVA (VTI): 2.47 | | [id number] Vmax: 0.00 cm2/m2AVAI (VTI): 0.00 cm2/m2LVOT maxP.47 mmHgLVOT meanPG: | | 2.68 mmHgLVSI Dopp: 35.40 ml/m2LVSV Dopp: 83.55 mlLVOT Vmax: 1.16 m/sLVOT Vmean: | | 0.74 m/sLVOT VTI: 22.77 cmMV A Robles: 1.04 m/sMV DecT: 277.62 msMV E Robles: 0.90 | | m/sMV E/A Ratio: 0.86MV PHT: 80.51 msMVA By PHT: 2.73 [id number] e': 0.05 | | m/sSeptal E/e': 17.90Lateral e': 0.05 m/sLateral E/e': 15.62RV S': 0.17 m/s | | Asw/Asuw Tactical Air Controller:Authenticated by: Artemio DOWNING Date/Time: 08-18-2017 17:9:28 | [...] |RV S': 0.17 m/s | | | |Asw/Asuw Tactical Air Controller: | |Authenticated by: LULA GAXIOLA MD | [...]
--- OUTSIDE RECORDS SUMMARY | ~2019-05-31 | XMS | Encounter Summary ---
Demographics + + + | Address | [address] | | | [place] [address] | + + + | Home Phone | | + + + | Preferred Language | Unknown | + + + | Marital Status | Legally | + + + | Buddhism Affiliation | Unknown | + + + | Race | Unknown | + + + | Ethnic Group | Unknown | + + + Author + + + | Author | [facility] | | | and [place] | + + + | Organization | [facility] | | | and [...] [place] | | | | | [address] | | + + + + + | Vonnie [place] | ECON | Unknown | | + + + + + Care Team Providers + +------+ + | Care Channel Program Manager Name | Role | Phone | + +------+ + | Jay Jay Mcfarlane MD | PCP | | + +------+ + Encounter Details +--------+ + + + + | Date | Type | Department | Care Team | Description | +--------+ + + + + | 08/17/ | Abstract | [facility] [place] | [place], | Respiratory failure | | 2012 | | PULMONARY [address] | Jessika Lewis MD | ([facility]) (Primary Dx); | | | | [place], | | COPD (chronic | | | | [place] [address] | | obstructive | | | | [phone] | | pulmonary disease) | | | | | | ([facility]); CHEL | | | | | | (obstructive sleep | | | | | | apnea); SOB | | | | | | (shortness of | | | | | | breath); H/O cardiac | | | | | | asthma; Peripheral | | | | | | neuropathy; | | | | | | hypertension; | | | | | | Diabetes mellitus, | | | | | | type 2 ([facility]); RLS | | | | | | (restless legs | | | | | | syndrome); GERD | | | | | | (gastroesophageal | | | | | | reflux disease) | +--------+ + + + + Social [...] | | | | | [place] [address] | | | | | | [phone] | | | | | | | | +--------+---------+ + + + documented as of this encounter Visit Diagnoses + + | Diagnosis | + + | Respiratory failure (HCC) - Primary Acute respiratory failure | + + | COPD (chronic obstructive pulmonary disease) (HCC) Chronic airway obstruction, not | | elsewhere classified | + + | CHEL (obstructive sleep apnea) Obstructive sleep apnea (adult) (pediatric) | + + | SOB (shortness of breath) Shortness of breath | + + | H/O cardiac asthma Personal history of other diseases of circulatory system | + + | Peripheral neuropathy Unspecified hereditary and idiopathic peripheral neuropathy | + + | hypertension Other chronic pulmonary heart diseases | + + | Diabetes mellitus, type 2 (HCC) Type II or unspecified type diabetes mellitus without | | mention of complication, not stated as uncontrolled | + + | RLS (restless legs syndrome) Restless legs syndrome (RLS) | + + | GERD (gastroesophageal reflux disease) Esophageal reflux | + + documented in this encounter"
--- OUTSIDE RECORDS SUMMARY | ~2019-05-31 | XMS | Encounter Summary ---
Demographics + + + | Address | [address] | | | [place] [address] | + + + | Home Phone | | + + + | Preferred Language | Unknown | + + + | Marital Status | Legally | + + + | Bahai Affiliation | Unknown | + + + | Race | Unknown | + + + | Ethnic Group | Unknown | + + + Author + + + | Author | [facility] | | | and [place] | + + + | Organization | [facility] | | | [...] [place] | | | | | [address] | | + + + + + | Vonnie Martinez | ECON | Unknown | | + + + + + Care Team Providers + +------+ + | Care Help Desk Engineer Name | Role | Phone | + +------+ + | Oscar Taylor PA-C | PCP | | + +------+ + Reason for Visit + + + | Reason | Comments | + + + | Establish Care | | + + + Encounter Details +--------+---------+ + + + | Date | Type | Department | Care Team | Description | +--------+---------+ + + + | 09/08/ | Office | [facility] | [place], | Chronic obstructive | | 2012 | Visit | PULMONARY [address] | Jessika Lewis MD | asthma (HCC) | | | | [place], | | (Primary Dx); CHEL | | | | [place] [address] | | (obstructive sleep | | | | [phone] | | apnea); Allergic | | | | | | rhinitis | +--------+---------+ + + + Social History [...] + | Blood Pressure | 120/70 | 09/08/2012 2:21 PM | | | | | PDT | | + + + + + | Pulse | 58 | 09/08/2012 2:21 PM | | | | | PDT | | + + + + + | Temperature | 36.7 C (98.1 F) | 09/08/2012 2:21 PM | | | | | PDT | | + + + + + | Respiratory Rate | - | - | | + + + + + | Oxygen Saturation | 97% | 09/08/2012 2:21 PM | | | | | PDT | | + + + + + | Inhaled Oxygen | - | - | | | Concentration | | | | + + + + + | Weight | 113.4 kg (250 lb) | 09/08/2012 2:21 PM | | | | | PDT | | + + + + + | Height | 161.3 cm (5' 3.5") | 09/08/2012 2:21 PM | | | | | PDT | | + + + + + | Body Mass Index | 43.59 | 09/08/2012 2:21 PM | | | | | PDT | | + + + + + documented in this encounter Patient Instructions Patient Instructions Danica Ramires - 09/08/2012 2:27 PM [facility] Rebeca [facility] [address] [place] [address] Dear Rebeca: Thank you for enrolling in [employer]. Please follow the instructions below to view your [employer] online medical record. [employer] allows you to send secure messages to your doctor, view you r test results, renew your prescriptions, schedule appointments, and more. How Do I Sign Up? 1. In your Internet browser, go to [email or web address] 2. Click on the Sign Up Now link in the Sign In box. This will take you to the New [employer] r Sign Up page. 3. Enter your [employer] access code exactly as it appears below. You will not need to use this code after you sign up. If you do not sign up before the expiration date, you must requ est a new code through your [facility]. [facility] Access Code: [email or web address] Expires: 11/07/2012 14:27 4. Fill in the last four digits of your Social Security Number (xxxx) and Date of (mm/dd/yyyy) when asked and click Submit. You will now be asked to create a [employer] ID. 5. Create a [employer] ID. This will be your [employer] login ID. Your login ID cannot be rodriguez ged, so think of one that is secure and easy to remember. 6. Create a [employer] password. You can change your password at any time. 7. Enter your Password Reset Question and Answer. This can be used at a later time if yo u forget your password. 8. Enter your e-mail address. You will receive e-mail notification when new information is available in [employer]. 9. Click Sign Up. You may now view your medical record. Additional Information If you have questions, you can email or call [phone] to talk to our [employer] care team. Please remember, [employer] should NOT be used fo r urgent needs. For all medical emergencies, call [phone]. Sincerely, Jessika Kruger MD Change Symbicort to Advair 500 mcg dose, 1 inhalation twice a day. Start nasal flunisolide spray, 2 sprays each nostril daily. Start cetirizine (generic Zyrtec) 10mg once daily. Over the counter. documented in this encounter Progress Notes Jessika Kruger MD - 09/08/2012 2:52 PM PDTFormatting of this note might be differe nt from the original. Pulmonary Consult Note Referring Provider: Lamberto Eller MD HPI Wanda D Walter is a 57 y.o. female patient of Oscar Taylor here today for evaluation of CO PD/asthma after an episode of repsiratory failure. She notes that she was admitted twice recently. She woke up on August 04 and thought s he was having an asthma attack. She treated herself with her inhaler. She had no energy, and felt terrible. She took a nap and woke up and felt worse. She eventually could not breathe at all, and was fading in and out of consciousness. She apparently had a respiratory arrest requiring BiPAP, and developed an NH due to demand ischemia from severe hypertension with pu lmonary edema. She was hospitalized for 4 days. She quit smoking during that admission. She went home and did improve. She then got worse about 1-2 weeks later. She went back to [facility] on August 28 and was kept overnight. She notes that since then she has been ti red. Her breathing has been okay. She is just fatigued a lot. She has carried a diagnosis of asthma since 1994 when she moved to [place]. (Actually, we note later that it is before this when she lived in [place] and she was hospitalized sever al times as well too). She had only been on as needed albuterol in the past. She is currentl y on twice daily Symbicort, as needed Ventolin and albuterol nebulizers since her last hosit alization. She is using the Ventolin three times a week and the albuterol nebulizer once a w [place]. She is waking up at night short of breath three times a week. This is improving gradual ly. Currently they are able to walk several hundred yards at their own pace on level ground. Javad wall is doing 10 minutes of walking daily at [employer], and is working up to 20 minutes daily. She does cough chronically, and does produce mucous, some of the time. She feels like she h as mucous choking her in the back of the throat. The mucous is clear in color. She has not h ad hemoptysis. Triggers for their shortness of breath include cold, stress, exertion, heavy lifting, smell s. Relieving factors include albuterol, resting, slowing her breathing down, and watching he r stress level. She has been hospitalized twice in the last year, and has had several other hospitalization s similar to this. On average, she has to take prednisone once a year, but none in the two p revious years. She has never been on a ventilator, but was on BiPAP this most recent admissi on. She has been evaluated for nocturnal oxygen and does not use it. She does not have a Volexen t order, and needs a new assessment for Medicare. She does have symptoms of heartburn or reflux. She is on omeprazole. She has had symptoms o f nasal congestion, runny nose or post nasal drip. She does snore terribly. She does think she stops breathing in her sleep. He does note she stops breathing in her sleep. He does think she has sleep apnea. She had a diagnosis in the past. She saw Dr. Lima before, and was treated. She then moved and was treated just with ju st nocturnal oxygen. Her AHI was 22.8 back in 2005. Her weight at that time was 252 pounds. Past Medical History Past Medical History Diagnosis Date Acute respiratory failure asthma/copd exacebration COPD (chronic obstructive pulmonary disease) CHEL (obstructive sleep apnea) AHI 22.8 in 2005, Dr. Lima Cardiac ischemia 08/04/2012 demand ischemia H/O cardiac asthma pulmonary edema, acute from severe hypertension and demand ischemia Peripheral neuropathy Hypertension Diabetes mellitus, type 2 Obesity Asthma RLS (restless legs syndrome) on gabapentin and pain medication GERD (gastroesophageal reflux disease) on omeprazole Hypomagnesemia severe, resolved Hepatitis C Past Surgical History Past Surgical History Procedure Date Partial hysterectomy ovaries in place Cholecystectomy Tonsillectomy Cyst removal tailbone Family History: Family History Problem Relation Age of Onset Other (See Comment) Mother brain aneurysm Hypertension Mother Tobacco Use Mother Cirrhosis Mother alcoholic cirrhosis COPD Mother Asthma Mother Alcohol abuse Mother Stomach cancer Father Breast cancer Sister Breast cancer Sister Cancer Brother throat Stroke Sister Hypertension Sister Social History: History Social History Marital Status: Legally Spouse Name: N/A Number of Children: N/A Years of Education: N/A Occupational History [employer]. Social History Main Topics Smoking status: Former Smoker -- 1.0 packs/day for 40 years Quit date: 08/04/2012 Smokeless tobacco: Never Used Alcohol Use: No Drug Use: Yes clean for 15 years, used cocaine for only 2 years Sexually Active: None Other Topics Concern None Social History Narrative Lives in [place] with her grandchildren. She is from her . No known exp osure to toxic chemicals or asbestos. No known exposure to tuberculosis.Has dogs at home. No other animal exposures. Allergies: Allergies Allergen Reactions Quinine Tramadol Medications: Outpatient Encounter Prescriptions as of 09/08/2012 Medication Sig Dispense Refill budesonide-formoterol (SYMBICORT) 160-4.5 mcg/puff inhaler Inhale 2 puffs into the lung s 2 times daily. albuterol (VENTOLIN HFA) 90 mcg/puff inhaler Inhale 2 puffs into the lungs every 6 hour s as needed. predniSONE (DELTASONE) 10 mg tablet Take 10 mg by mouth Daily. Tapering dose insulin aspart (NOVOLOG FLEXPEN) 100 units/mL injection Inject under the skin. Take 15 units before each meal ( 3 times daily). Than take PRN insulin glargine (LANTUS) 100 units/mL injection Inject 35 Units under the skin nightly . gabapentin (NEURONTIN) 300 mg capsule Take 300 mg by mouth. Take 900mg at bedtime and 6 00mg in the AM. aspirin 81 mg EC tablet Take 81 mg by mouth Daily. carvedilol (COREG) 25 mg tablet Take 25 mg by mouth 2 times daily (with breakfast & din ner). amitriptyline (ELAVIL) 25 mg tablet Take 25 mg by mouth nightly. lisinopril (PRINIVIL, ZESTRIL) 10 mg tablet Take 10 mg by mouth Daily. metformin (GLUCOPHAGE) 1000 MG tablet Take 1,000 mg by mouth 2 times daily (with breakf ast & dinner). omeprazole (PRILOSEC) 20 mg capsule Take 20 mg by mouth every morning (before breakfast ). hydrochlorothiazide 25 mg tablet Take 25 mg by mouth Daily. buPROPion (WELLBUTRIN SR) 150 mg 12 hr tablet Take 150 mg by mouth Daily. Review of Systems Constitutional: Denies fever, chills, sweats, and change in weight. Sleep: Denies difficulty sleeping, excessive snoring, and daytime sleepiness. Eyes: Has had some blurry vision. ENT: Denies earache, decreased hearing, sore throat, and hoarseness. Has some sinus conges tion and some nosebleeds. Resp: See HPI. CV: Denies chest pain, palpitations, syncope. Has had some leg swelling. GI: Denies nausea, vomiting, and abdominal pain. Has heartburn on omeprazole. Well control led on the medication. : Denies difficulty emptying bladder and nocturia. Musculoskeletal: Denies joint pain/stiffness, joint swelling, and muscle cramps. Derm: Denies rash, itching, dryness, and suspicious lesions. Neurologic: Denies seizures, numbness or tingling in hands or feet, and vertigo. Has freque nt headaches, particularly recently. They are more often as the day goes on. She has some di zzy spells. Psych: Denies depression, anxiety, and suicidal ideation. Endo: Denies cold intolerance, heat intolerance, and unusual weight change. Heme: Denies abnormal bruising, bleeding, and enlarged lymph nodes. Allergy: Denies food allergies, allergic rash, and hay fever. Objective BP 120/70 | Pulse 58 | Temp(Src) 36.7 C (98.1 F) (Oral) | Ht 1.613 m (5' 3.5") | Wt 113 .399 kg (250 lb) | BMI 43.59 kg/m2 | SpO2 97% General Appearance: Alert, cooperative, no distress, appears stated age Head: Normocephalic, without obvious abnormality, atraumatic Eyes: PERRL, conjunctiva clear, no scleral icterus, EOM's intact Ears: TM's are both scarred, left more so than right, acuity is grossly fairly normal Nose: Nares normal, septum midline, mucosa edematous with some drainage Mouth: No oral lesions or exudate, somewhat large bulky tongue Neck: Supple, symmetrical, no adenopathy Lungs: No accessory muscle use, breath sounds are diminished bilaterally, scattered expir atory wheezing is heard Chest Wall: No deformity Heart: Regular rate and rhythm, no murmur, rub or gallop Abdomen: Soft, non-tender, non-distended, obese Extremities: No cyanosis, clubbing, or edema Pulses: Radial pulses 2+ and symmetric Skin: Warm and dry Lymph nodes: Cervical and supraclavicular nodes normal Data: Chest x-ray was done on August 04, 2012 and was reviewed and interpreted in clinic today. It is a single view underpenetrated film, but appears otherwise grossly fairly normal excep t a healed left sided rib fracture . Pulmonary function tests were performed prior to clinic today and were reviewed and interpr eted in clinic today. They show mild obstructive physiology without significant response to inhaled bronchodilator, normal lung volumes and a normal diffusion capacity. Oscar Taylor's notes were reviewed in clinic today. Inpatient notes from both hospital stays are reviewed. Jacob Lima's notes from 2005 are reviewed in clinic today. Immunization History Administered Date(s) Administered INFLUENZA, PRESERVATIVE FREE IM 04/10/2012 Pneumococcal (Adult) 08/11/2012 Assessment /Plan Ms. Watson was seen today for evaluation of chronic obstructive asthma. Diagnoses and associated orders for this visit: Chronic obstructive asthma It sounds like she has had respiratory problems for a lot of her life, likely asthma, but s moked and so developed a component of emphysema. Her fixed obstructive component is actually mild. That being said, she is actually still wheezing some in clinic today despite the Symb icort. I would favor using an inhaler with a more potent steroid dose, and so I a mo hoping to switch to high dose Advair, if we can get it covered by her insurance. Dulera would also be an option, but it is not covered under any Medicare plan to my knowledge. Of the beta blockers, carvedilol should have the least impact on her lung function. - fluticasone-salmeterol (ADVAIR DISKUS) 500-50 mcg/puff diskus inhaler; Inhale 1 puff into the lungs Twice Daily. - Discontinue: budesonide-formoterol (SYMBICORT) 160-4.5 mcg/puff inhaler; Inhale 2 puffs i nto the lungs 2 times daily. Chel (obstructive sleep apnea) Control of CHEL is important in controlling asthma when both are present. Nocturnal CPAP josué l improve nighttime symptoms and daytime symptoms. I recommended resuming CPAP, not just nig httime oxygen. I will order CPAP, but noted despite having her prior sleep study, we may hav e to get a new one as she has been off therapy for about 7 years. - Respiratory Therapy Supplies MISC; Res Med S9 auto CPAP 5-15 cm H2O. Heater and Humidifie r. All necessary supplies.AHI 22.8. Diagnosis Code(s)327.23. Length of Need lifetime. Please send order to [facility] [place]. Send copy of sleep study 2005. Allergic rhinitis She does have allergic symptoms, and has had ongoing nasal congestion. I suggested treating with a nasal steroid plus daily cetirizine. - flunisolide (NASAREL) 29 MCG/ACT (0.025%) nasal spray; 2 sprays by Nasal route Daily. Dos e is for each nostril. She was advised to call if new pulmonary symptoms were to develop. Return to clinic in 6 weeks, or sooner with concerns. CC: DEL Salmon, Lamberto Eller MD, Evan Chen MD Portions of this report were transcribed using voice recognition software. Every effort wa s made to ensure accuracy; however, inadvertent computerized brewmaster errors may be pre sent. documented in t his encounter Plan of Treatment +--------+---------+ + + + | Date | Type | Specialty | Care Team | Description | +--------+---------+ + + + | 06/12/ | Office | Cardiology | [facility] | | | 2019 | Visit | | [address] | | | | | | [address] | | | | | | [place] [address] | | | | | | [phone] | | | | | | | | +--------+---------+ + + + documented as of this encounter Visit Diagnoses + + | Diagnosis | + + | Chronic obstructive asthma (HCC) - Primary Chronic obstructive asthma, unspecified | + + | CHEL (obstructive sleep apnea) Obstructive sleep apnea (adult) (pediatric) | + + | Allergic rhinitis Allergic rhinitis, cause unspecified | + + documented in this encounter
--- OUTSIDE RECORDS SUMMARY | ~2019-05-31 | XMS | Encounter Summary ---
Demographics + + + | Address | [address] | | | [place] [address] | + + + | Home Phone | | + + + | Preferred Language | Unknown | + + + | Marital Status | Legally | + + + | Zoroastrian Affiliation | Unknown | + + + | Race | Unknown | + + + | Ethnic Group | Unknown | + + + Author + + + | Author | [facility] | | | and [place] | + + + | Organization | [facility] | | | [...] [place] | | | | | [address] | | + + + + + | Vonnie Martinez | ECON | Unknown | | + + + + + Care Team Providers + +------+ + | Care Arabic Linguist Name | Role | Phone | + [...] + + | 03/17/ | Refill | [facility] | [place], | Medication Refill | | 2019 | | CARDIOLOGY MISSY | [address] | | | | | [address] | [facility], | | | | | [place], [place] | [place] [address] | | | | | [address] | [phone] | | | | | [phone] | | | +--------+--------+ + + + [...] | | | | | [place] [address] | | | | | | [phone] | | | | | | | | +--------+---------+ + + + documented as of this encounter Visit Diagnoses Not on filedocumented in this encounter"
--- OUTSIDE RECORDS SUMMARY | ~2019-05-31 | XMS | Encounter Summary ---
Demographics + + + | Address | [address] | | | [place] [address] | + + + | Home Phone | | + + + | Preferred Language | Unknown | + + + | Marital Status | | + + + | Pentecostalism Affiliation | Unknown | + + + | Race | White | + + + | Ethnic Group | Not or | + + + Author + + + | Author | [facility] | + + + | Organization | [facility] | + + + | Address | Unknown | + + + | Phone | Unavailable | + + + Support + + +---------+ + | Name | Relationship | Address | Phone | + + +---------+ + | Don Watson | ECON | Unknown | | + + +---------+ + Care Team Providers + +------+ + | Care Internet Technology Manager Name | Role | Phone | + +------+ + | Garret Rojo NP | PCP | | + +------+ + Encounter Details +--------+ + + + + | Date | Type | Department | Care Team | Description | +--------+ + + + + | 08/26/ | Abstract | [facility] | Clinic, Surgery | | | 2016 | | [place] [facility] [address] | | | | | | [address] | | | | | | Mailcode: [place] | | | | | | [facility] | | | | | | [facility], [address] | | | | | | [place], [place] | | | | | | [address] | | | | | | [phone] | | | +--------+ + + + [...] as of this encounter Plan of Treatment Not on filedocumented as of this encounter Visit Diagnoses Not on filedocumented in this encounter"
--- OUTSIDE RECORDS SUMMARY | ~2019-05-31 | XMS | Encounter Summary ---
Demographics + + + | Address | [address] | | | [place] [address] | + + + | Home Phone | | + + + | Preferred Language | Unknown | + + + | Marital Status | Legally | + + + | Restorationist Affiliation | Unknown | + + + | Race | Unknown | + + + | Ethnic Group | Unknown | + + + Author + + + | Author | [facility] | | | and [place] | + + + | Organization | [facility] | | [...] [place] | | | | | [address] | | + + + + + | Vonnie Martinez | ECON | Unknown | | + + + + + Care Team Providers + +------+ + | Care Brush Fabrication Supervisor Name | Role | Phone | + +------+ + | Oscar Taylor PA-C | PCP | | + +------+ + Encounter Details +--------+ + + + + | Date | Type | Department | Care Team | Description | +--------+ + + + + | 05/21/ | Orders Only | [facility] | Conversion | | | 2017 | | NEPRHOLOGY [place] | Transaction, | | | | | [address] | Provider Unknown | | | | | [address] [place], [place] | [phone] | | | | | [address] | | | | | | [phone] | | | +--------+ + + + [...] SORIANO | | | | | | [place] [address] | | | | | | [phone] | | | | | | | | +--------+---------+ + + + documented as of this encounter Procedures + +--------+ + + + | Procedure Name | Priori | Date/Time | Associated Diagnosis | Comments | | | ty | | | | + +--------+ + + + | EXTERNAL LAB: CBC | Routin | 05/21/2017 | | Results for this | | | e | 11:35 AM | | procedure are in the | | | | PST | | results section. | + +--------+ + + + | URINALYSIS, | Routin | 05/21/2017 | | Results for this | | MICROSCOPIC ONLY | e | 11:35 AM | | procedure are in the | | | | PST | | results section. | + +--------+ + + + | PROTEIN/CREATININE | Routin | 05/21/2017 | | Results for this | | RATIO, URINE | e | 11:35 AM | | procedure are in the | | | | PST | | results section. | + +--------+ + + + | URIC ACID | Routin | 05/21/2017 | | Results for this | | | e | 11:35 AM | | procedure are in the | | | | PST | | results section. | + +--------+ + + + | PARATHYROID HORMONE, | Routin | 05/21/2017 | | Results for this | | INTACT | e | 11:35 AM | | procedure are in the | | | | PST | | results section. | + +--------+ + + + | MAGNESIUM | Routin | 05/21/2017 | | Results for this | | | e | 11:35 AM | | procedure are in the | | | | PST | | results section. | + +--------+ + + + | RENAL FUNCTION PANEL | Routin | 05/21/2017 | | Results for this | | | e | 11:35 AM | | procedure are in the | | | | PST | | results section. | + +--------+ + + + documented in this encounter Results Protein/Creatinine Ratio, Urine (05/21/2017 11:35 AM PST) + +-------+ + + + | Component | Value | Ref Range | Performed | Pathologist | | | | | At | Signature | + +-------+ + + + | Protein/Cre | 94.6 | 0 - 150 | EXTERNAL | [...] + +---------+ + + Urinalysis, Microscopic Only (05/21/2017 11:35 AM PST) + + + + + [...] - 1.030 | EXTERNAL | | | [place] | | | LAB | | + + + + + + | Leukocyte | Comment: 25 | | EXTERNAL | | | Esterase, [...] | + + + | Casts: Hyaline 2+ WBC's: 5 H Bacteria: 4+ | EXTERNAL LAB | + + + + +---------+ + + | Performing | Address | City/State/Zipcode | Phone Number | | Organization | | | | + +---------+ + + | EXTERNAL LAB | | | | + +---------+ + + External Lab: CBC (05/21/2017 11:35 AM PST) + + + + + + | Component | Value | Ref Range | Performed | Pathologist | | | | | At | Signature | + + + + + + | WBC | 7.4 | 4.5 - 11.0 10 | EXTERNAL | | | | | | LAB | | + + + + + + | RED CELL | 4.19 | 3.8 - 5.1 10 | EXTERNAL | | | COUNT | | | LAB | | + + + + + + | Hgb | 11.6 (A) | 12 - 16 g/dL | EXTERNAL | | | | | | LAB | | + + + + + + | Hematocrit, | 36.3 | 35 - 45 % | EXTERNAL | | | POC | | | LAB | | + + + + + + | MCV | 86.8 | 81 - 99 fL | EXTERNAL [...] + + + + | Platelet | 135 (A) | 140 - 440 K/ L | EXTERNAL | | | Count | | | LAB | | | Plasma | | | | | + + + + + + | RDW-CV | 15.8 (A) | 10.5 - 15.0 % | [...] | + +---------+ + + Uric Acid (05/21/2017 11:35 AM PST) + + + + + + | Component | Value | Ref Range | Performed | Pathologist | | | | | At | Signature | + + + + + + | Uric Acid | 10.3 (A) | 2.3 - 6.6 | EXTERNAL [...] + +---------+ + + Parathyroid Hormone, Intact (05/21/2017 11:35 AM PST) + + + + + + | Component | Value | Ref Range | Performed | Pathologist | | | | | At | Signature | + + + + + + | PTH INTACT | 109.1 (A) | 15 - 65 pg/mL | [...] | | + +---------+ + + Magnesium (05/21/2017 11:35 AM PST) + +-------+ + + + | Component | Value | Ref Range | Performed | Pathologist | | | | | At | Signature | + +-------+ + + + | Magnesium | 2.1 | 1.7 - 2.5 mg/dL | EXTERNAL [...] + +---------+ + + Renal Function Panel (05/21/2017 11:35 AM PST) + + + + + + | Component | Value | Ref Range | Performed | Pathologist | | | | | At | Signature | + + + + + + | Glucose, | 30 (A) | 70 - 100 mg/dL | EXTERNAL | | | Fasting | | | LAB | | + + + + + + | BUN | 46 (A) | 6 - 23 mg/dL | EXTERNAL | | | | | | LAB | | + + + + + + | Creatinine | 1.95 (A) | 0.70 - 1.25 | EXTERNAL | | | | | mg/dL | LAB | | + + + + + + | PHOSPHORUS | | mg/dL | EXTERNAL | | | | | | LAB | | + + + + + + | Albumin | 4.1 | 3.5 - 5.0 | EXTERNAL | | | | | | LAB | | + + + + + + | Na | 141 | 132 - 143 | EXTERNAL | | | | | mmol/L | LAB | | + + + + + + | K | 4.2 | 3.6 - 5.1 | EXTERNAL | | | | | mmol/L | LAB | | + + + + + + | Cl | 97 | 95 - 112 mmol/L | EXTERNAL | | | | | | LAB | | + + + + + + | CO2 | 29 | 19 - 31 mmol/L | EXTERNAL | | | | | | LAB | | + + + + + + | Anion Gap | 19.2 | 7 - 21 mmol/L | EXTERNAL | | | | | | LAB | | + + + + + + | eGFR if not | | | EXTERNAL | | | | | | LAB | | | [facility] | | | | | + + + + + + | Phosphorus, | 3.8 | 2.5 - 5.0 | EXTERNAL | | | Inorganic | | | LAB | | + + + + + + | BUN/Creatin | 23.6 | 6.0 - 28.6 | EXTERNAL | | | ine Ratio | | | LAB | | + + + + + + | Calcium | 10 | 8.4 - 10.2 | EXTERNAL | | | | | mg/dL | LAB | | + + + + + + | Estimated | 26 (A) | 60 mg/dL | EXTERNAL | [...]
--- OUTSIDE RECORDS SUMMARY | ~2019-05-31 | XMS | Encounter Summary ---
Demographics + + + | Address | [address] | | | [place] [address] | + + + | Home Phone | | + + + | Preferred Language | Unknown | + + + | Marital Status | Legally | + + + | Gnosticist Affiliation | Unknown | + + + | Race | Unknown | + + + | Ethnic Group | Unknown | + + + Author + + + | Author | [facility] | | | and [place] | + + + | Organization | [facility] | [...] [place] | | | | | [address] | | + + + + + | Vonnie Martinez | ECON | Unknown | | + + + + + Care Team Providers + +------+ + | Care Director Child Abuse Therapy Name | Role | Phone | + +------+ + | Oscar Taylor PA-C | PCP | | + +------+ + Encounter Details +--------+ + + + + | Date | Type | Department | Care Team | Description | +--------+ + + + + | 11/19/ | Orders Only | [facility] | Conversion | | | 2017 | | NEPHROLOGY CECE[place]ANIE | Transaction, | | | | | [address] | Provider Unknown | | | | | [address] [place] | | | | | | [address] | (Fax) | | | | | [phone] | | | +--------+ + + + [...] SORIANO | | | | | | [place] [address] | | | | | | [phone] | | | | | | | | +--------+---------+ + + + documented as of this encounter Procedures + +--------+ + + + | Procedure Name | Priori | Date/Time | Associated Diagnosis | Comments | | | ty | | | | + +--------+ + + + | CULTURE, URINE | Routin | 11/19/2016 | | Results for this | | | e | 8:07 AM | | procedure are in the | | | | PDT | | results section. | + +--------+ + + + documented in this encounter Results Culture, Urine (11/19/2016 8:07 AM PDT) + + | Specimen | [...]
--- OUTSIDE RECORDS SUMMARY | ~2019-05-31 | XMS | Encounter Summary ---
Demographics + + + | Address | [address] | | | [place] [address] | + + + | Home Phone [...] + + + | Author | [facility] | | | and [place] | + + + | Organization | [facility] | | [...] [place] | | | | | [address] | | + + + + + | Vonnie Martniez | ECON | Unknown | | + + + + + Care Team Providers + +------+ + | Care Coffee Grinder Name | Role | Phone | + +------+ + | Oscar Taylor PA-C | PCP | | + +------+ + Reason for Visit +--------+ + | Reason | Comments | +--------+ + | COPD | and ORACIO | +--------+ + Encounter Details +--------+---------+ + + + | Date | Type | Department | Care Team | Description | +--------+---------+ + + + | 10/20/ | Office | [facility] | [place], | Acute sinusitis | | 2012 | Visit | PULMONARY [address] | Jessika Lewis MD | (Primary Dx); | | | | [place], | | Chronic obstructive | | | | [place] [address] | | asthma (HCC); | | | | [phone] | | Allergic rhinitis; | | | | | | ORACIO (obstructive | | | | | | [...] She will do an extra lap around [place] before starting her shopping every other day. She does not cough chronically, and does not produce mucous. She has not had hemoptysis. 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 Social History Main Topics Smoking status: Former Smoker -- 1.0 packs/day for 40 years Quit date: 08/04/2012 Smokeless tobacco: Never Used Alcohol Use: No Drug Use: Yes clean for 15 years, used cocaine for only 2 years Sexually Active: None Other Topics Concern None Social History Narrative Lives in [place] with her grandchildren. She is from her [...] Daily. 1 each 11 Respiratory Therapy Supplies [facility] Res Med S9 auto CPAP 5-15 cm [...] rhinitis Continue on nasal flunisolide, reordered today. Oracio (obstructive sleep apnea) I have ordered her CPAP again and asked her to contact us if she does not hear anything fro m the [employer]. She may need another sleep study. - Respiratory Therapy Supplies MISC; Res Med S9 auto CPAP 5-15 cm H2O. Heater and Humidifie r. All necessary supplies.AHI 22.8. Diagnosis Code(s)327.23. Length of Need lifetime. Please send order to [facility] [place]. Send copy of sleep study from 2005 with order. Gerd (gastroesophageal reflux disease) Well controlled on omeprazole. She was advised to call if new pulmonary symptoms were to develop. Return to clinic in 3 months, or sooner with concerns. CC: Oscar Taylor Portions of this report were transcribed using voice recognition software. Every effort wa s made to ensure accuracy; however, inadvertent computerized gas well pumper errors may be pre sent. documented in [...] SORIANO | | | | | | [place] [address] | | | | | | [phone] | | | | | | | | +--------+---------+ + + + documented as of this encounter Visit Diagnoses + + | Diagnosis | + + | Acute sinusitis - Primary Acute sinusitis, unspecified | + + | Chronic obstructive asthma (HCC) Chronic obstructive asthma, unspecified | + + | Allergic rhinitis Allergic rhinitis, cause unspecified | + + | ORACIO (obstructive sleep apnea) Obstructive sleep apnea (adult) (pediatric) | + + | GERD (gastroesophageal reflux disease) Esophageal reflux | + + documented in this encounter
--- OUTSIDE RECORDS SUMMARY | ~2019-05-31 | XMS | Encounter Summary ---
Demographics + + + | Address | [address] | | | [place] [address] | + + + | Home Phone [...] + + + | Author | [facility] | | | and [place] | + + + | Organization | [facility] | | | [...] [place] | | | | | [address] | | + + + + + | Vonnie Martinez | ECON | Unknown | | + + + + + Care Team Providers + +------+ + | Care Damper Fitter Name | Role | Phone | + +------+ + | Oscar Taylor PA-C | PCP | | + +------+ + Encounter Details +--------+ + + + + | Date | Type | Department | Care Team | Description | +--------+ + + + + | 03/04/ | Orders Only | [facility] | Conversion | | | 2017 | | NEPHROLOGY CECESTEPHANIE | Transaction, | | | | | [address] | Provider Unknown | | | | | [address] [place] | | | | | | [address] | (Fax) | | | | | [phone] | | | +--------+ + + + [...] SORIANO | | | | | | [place] [address] | | | | | | [phone] | | | | | | | | +--------+---------+ + + + documented as of this encounter Procedures + +--------+ + + + | Procedure Name | Priori | Date/Time | Associated Diagnosis | Comments | | | ty | | | | + +--------+ + + + | IRON AND IRON | Routin | 03/04/2017 | | Results for this | | BINDING CAPACITY | e | 2:15 PM | | procedure are in the | | | | PDT | | results section. | + +--------+ + + + | TRANSFERRIN | Routin | 03/04/2017 | | Results for this | | | e | 2:15 PM | | procedure are in the | | | | PDT | | results section. | + +--------+ + + + documented in this encounter Results Iron and Iron Binding Capacity (03/04/2017 2:15 PM PDT) + + + + + + | Component | Value | Ref Range | Performed | Pathologist | | | | | At | Signature | + + + + + + | Iron | 47.53 | 37 - 160 | EXTERNAL | | | | | | LAB | | + + + + + + | Iron | 13.6 (A) | 20 - 55 | EXTERNAL | | | Saturation | | | LAB | | + + + + + + | TIBC | 349 | 245 - 400 | EXTERNAL | [...] | | | + +---------+ + + Transferrin (03/04/2017 2:15 PM PDT) + +--------+ + + + | Component | Value | Ref Range | Performed | Pathologist | | | | | At | Signature | + +--------+ + + + | TRANSFERRIN | 249.45 | 192 - 382 | EXTERNAL | | | | | | LAB | | + +--------+ + + + + + | Specimen [...]
--- OUTSIDE RECORDS SUMMARY | ~2019-05-31 | XMS | Encounter Summary ---
Demographics + + + | Address | [address] | | | [place] [address] | + + + | Home Phone [...] Author + + + | Author | [facility] | | | and [place] | + + + | Organization | [facility] | | | [...] [place] | | | | | [address] | | + + + + + | Vonnie Martinez | ECON | Unknown | | + + + + + Care Team Providers + +------+ + | Care Ship'S Master Name | Role | Phone | + +------+ + | Oscar Taylor PA-C | PCP | | + +------+ + Encounter Details +--------+ + + + + | Date | Type | Department | Care Team | Description | +--------+ + + + + | 03/04/ | Orders Only | [facility] | Jeremiah Mendoza MD | | | 2017 | | NEPHROLOGY [place] | [address] [place] | | | | | [address] [place] | [address] [place], [place] | | | | | [address] [facility], [place] | [address] | | | | | [address] | | | | | | [phone] | | | +--------+ + + + [...] | | | | | [place] [address] | | | | | | [phone] | | | | | | | | +--------+---------+ + + + documented as of this encounter Procedures + +--------+ + + + | Procedure Name | Priori | Date/Time | Associated Diagnosis | Comments | | | ty | | | | + +--------+ + + + | EXTERNAL LAB: CBC | Routin | 03/04/2017 | | Results for this | | | e | 2:15 PM | | procedure are in the | | | | PDT | | results section. | + +--------+ + + + | URINALYSIS WITH | Routin | 03/04/2017 | | Results for this | | MICROSCOPIC IF | e | 2:15 PM | | procedure are in the | | INDICATED | | PDT | | results section. | + +--------+ + + + | PROTEIN/CREATININE | Routin | 03/04/2017 | | Results for this | | RATIO, URINE | e | 2:15 PM | | procedure are in the | | | | PDT | | results section. | + +--------+ + + + | URIC ACID | Routin | 03/04/2017 | | Results for this | | | e | 2:15 PM | | procedure are in the | | | | PDT | | results section. | + +--------+ + + + | PARATHYROID HORMONE, | Routin | 03/04/2017 | | Results for this | | INTACT | e | 2:15 PM | | procedure are in the | | | | PDT | | results section. | + +--------+ + + + | MAGNESIUM | Routin | 03/04/2017 | | Results for this | | | e | 2:15 PM | | procedure are in the | | | | PDT | | results section. | + +--------+ + + + | FERRITIN | Routin | 03/04/2017 | | Results for this | | | e | 2:15 PM | | procedure are in the | | | | PDT | | results section. | + +--------+ + + + | RENAL FUNCTION PANEL | Routin | 03/04/2017 | | Results for this | | | e | 2:15 PM | | procedure are in the | | | | PDT | | results section. | + +--------+ + + + documented in this encounter Results Protein/Creatinine Ratio, Urine (03/04/2017 2:15 PM PDT) + +-------+ + + + | Component | Value | Ref Range | Performed | Pathologist | | | | | At | Signature | + +-------+ + + + | Protein/Cre | 116.1 | 0 - 150 | EXTERNAL | [...] + + Urinalysis with Microscopic if Indicated (03/04/2017 2:15 PM PDT) + + + [...] + + + | Spec Grav, | 1.010 | 1.005 - 1.030 | EXTERNAL | [...] + +---------+ + + External Lab: CBC (03/04/2017 2:15 PM PDT) + + + + + + | Component | Value | Ref Range | Performed | Pathologist | | | | | At | Signature | + + + + + + | WBC | 7.5 | 4.5 - 11.0 10 | EXTERNAL | | | | | | LAB | | + + + + + + | RED CELL | 4.25 | 3.8 - 5.1 10 | EXTERNAL | | | COUNT | | | LAB | | + + + + + + | Hgb | 11.4 (A) | 12.0 - 16.0 | EXTERNAL | | | | | g/dL | LAB | | + + + + + + | Hematocrit, | 35.9 | 35 - 45 % | EXTERNAL | | | POC | | | LAB | | + + + + + + | MCV | 84.6 | 81 - 99 fL | EXTERNAL [...] + + + + | Platelet | 137 (A) | 140 - 440 K/ L | EXTERNAL | | | Count | | | LAB | | | Plasma | | | | | + + + + + + | RDW-CV | 15.9 (A) | 10.5 - 15.0 % | [...] | + +---------+ + + Uric Acid (03/04/2017 2:15 PM PDT) + +---------+ + + + | Component | Value | Ref Range | Performed | Pathologist | | | | | At | Signature | + +---------+ + + + | Uric Acid | 8.0 (A) | 2.3 - 6.6 | EXTERNAL [...] + +---------+ + + Parathyroid Hormone, Intact (03/04/2017 2:15 PM PDT) + + + + + + | Component | Value | Ref Range | Performed | Pathologist | | | | | At | Signature | + + + + + + | PTH INTACT | 126.4 (A) | 15 - 65 pg/mL | [...] | | + +---------+ + + Magnesium (03/04/2017 2:15 PM PDT) + +-------+ + + + | Component | Value | Ref Range | Performed | Pathologist | | | | | At | Signature | + +-------+ + + + | Magnesium | 1.7 | 1.7 - 2.5 mg/dL | EXTERNAL [...] | | + +---------+ + + Ferritin (03/04/2017 2:15 PM PDT) + +-------+ + + + | Component | Value | Ref Range | Performed | Pathologist | | | | | At | Signature | + +-------+ + + + | Ferritin, | 105.2 | 13 - 150 ng/mL | EXTERNAL [...] + +---------+ + + Renal Function Panel (03/04/2017 2:15 PM PDT) + + + + + + | Component | Value | Ref Range | Performed | Pathologist | | | | | At | Signature | + + + + + + | Glucose, | 79 | 70 - 100 mg/dL | EXTERNAL | | | Fasting | | | LAB | | + + + + + + | BUN | 27 (A) | 6 - 23 mg/dL | EXTERNAL | | | | | | LAB | | + + + + + + | Creatinine | 1.40 (A) | 0.70 - 1.25 | EXTERNAL [...] + + + + | K | 3.8 | 3.6 - 5.1 | EXTERNAL | | | | | mmol/L | LAB | | + + + + + + | Cl | 97 | 95 - 112 mmol/L | EXTERNAL | | | | | | LAB | | + + + + + + | CO2 | 28 | 19 - 31 mmol/L | EXTERNAL | | | | | | LAB | | + + + + + + | Anion Gap | 16.8 | 7 - 21 mmol/L | EXTERNAL | | | | | | LAB | | + + + + + + | eGFR if not | | | EXTERNAL | | | | | | LAB | | | EMIRATI | | | | | + + + + + + | Phosphorus, | 2.9 | 2.5 - 5.0 | EXTERNAL | | | Inorganic | | | LAB | | + + + + + + | BUN/Creatin | 19.3 | 6.0 - 28.6 | EXTERNAL | | | ine Ratio | | | LAB | | + + + + + + | Calcium | 9.3 | 8.4 - 10.2 | EXTERNAL | | | | | mg/dL | LAB | | + + + + + + | Estimated | 38 | mg/dL | EXTERNAL | | | [...]
--- OUTSIDE RECORDS SUMMARY | ~2019-05-31 | XMS | Encounter Summary ---
Demographics + + + | Address | [address] | | | [place] [address] | + + + | Home Phone | | + + + | Preferred Language | Unknown | + + + | Marital Status | Legally | + + + | Evangelical Affiliation | Unknown | + + + [...] [place] | | | | | [address] | | + + + + + | Vonnie Martinez | ECON | Unknown | | + + + + + Care Team Providers + +------+ + | Care Supervisor Roller Printing Name | Role | Phone | + [...] [address] | Jessika Lewis MD | ([facility]) (Primary Dx); | | | | [place], | | COPD (chronic | | | | [place] [address] | | obstructive | | | | [phone] | | pulmonary disease) | | | | | | ([facility]); CHEL | | | | [...] | | | | | type 2 ([facility]); RLS | | | | [...] | | | | | [place] [address] | | | | | | [phone] | | | | | | | [...]
--- OUTSIDE RECORDS SUMMARY | ~2019-05-31 | XMS | Encounter Summary ---
Demographics + + + | Address | [address] | | | [place] [address] | + + + | Home Phone [...] + + + | Author | [facility] | | | and [place] | + + + | Organization | [facility] | | [...] [place] | | | | | [address] | | + + + + + | Vonnie Martinez | ECON | Unknown | | + + + + + Care Team Providers + +------+ + | Care Gas Tender Name | Role | Phone | + +------+ + | Oscar Taylor PA-C | PCP | | + +------+ + Encounter Details +--------+ + + + + | Date | Type | Department | Care Team | Description | +--------+ + + + + | 04/26/ | Orders Only | [facility] | Phan Jones, | | | 2017 | | NEPRHOLOGY [place] | SOIL SORT WORKER [address] | | | | | [address] | MARG[address]ITA REA | | | | | [address] [place], [place] | [facility] [place] | | | | | [address] | [address] | | | | | [phone] | [phone] | | | | | | | [...] S[place]O | | | | | | [place] [address] | | | | | | [phone] | | | | | | | | +--------+---------+ + + + documented as of this encounter Procedures + +--------+ + + + | Procedure Name | Priori | Date/Time | Associated Diagnosis | Comments | | | ty | | | | + +--------+ + + + | EXTERNAL LAB: CBC | Routin | 04/26/2018 | | Results for this | | | e | 12:00 AM | | procedure are in the | | | | PST | | results section. | + +--------+ + + + | URIC ACID | Routin | 04/26/2018 | | Results for this | | | e | 12:00 AM | | procedure are in the | | | | PST | | results section. | + +--------+ + + + | PARATHYROID HORMONE, | Routin | 04/26/2018 | | Results for this | | INTACT | e | 12:00 AM | | procedure are in the | | | | PST | | results section. | + +--------+ + + + | MAGNESIUM | Routin | 04/26/2018 | | Results for this | | | e | 12:00 AM | | procedure are in the | | | | PST | | results section. | + +--------+ + + + | RENAL FUNCTION PANEL | Routin | 04/26/2018 | | Results for this | | | e | 12:00 AM | | procedure are in the | | | | PST | | results section. | + +--------+ + + + documented in this encounter Results External Lab: CBC (04/26/2018 12:00 AM PST) + +---------+ + + + | Component | Value | Ref Range | Performed | Pathologist | | | | | At | Signature | + +---------+ + + + | WBC | 9 | 4.5 - 11 10 | EXTERNAL | | | | | | LAB | | + +---------+ + + + | RED CELL | 4.14 | 3.8 - 5.1 10 | EXTERNAL | | | COUNT | | | LAB | | + +---------+ + + + | Hgb | 12.1 | 12 - 16 g/dL | EXTERNAL | | | | | | LAB | | + +---------+ + + + | Hematocrit, | 36.9 | 35 - 45 % | EXTERNAL | | | POC | | | LAB | | + +---------+ + + + | MCV | 89.3 | 81 - 99 fL | EXTERNAL | | | | | | LAB | | + +---------+ + + + | MCH | 29 | 27 - 33 pg | EXTERNAL | | | | | | LAB | | + +---------+ + + + | MCHC | 33 | 30 - 36 g/dL | EXTERNAL | | | | | | LAB | | + +---------+ + + + | Platelet | 128 (A) | 140 - 440 K/ L | EXTERNAL | | | Count | | | LAB | | | Plasma | | | | | + +---------+ + + + | RDW-CV | 14.4 | 10.5 - 15 % | EXTERNAL | | | | | | LAB | | + +---------+ + + + | MPV | | fL | EXTERNAL | | | | | | LAB | | + +---------+ + + + | Differentia | | | EXTERNAL | | | l Type | | | LAB | | + +---------+ + + + | % Segmented | | % | EXTERNAL | | | | | | LAB | | | Neutrophils | | | | | + +---------+ + + + | % | | % | EXTERNAL | | | Lymphocytes | | | LAB | | + +---------+ + + + | % Monocytes | | % | EXTERNAL | | | | | | LAB | | + +---------+ + + + | % | | % | EXTERNAL | | | Eosinophils | | | LAB | | + +---------+ + + + | % Basophils | | % | EXTERNAL | | | | | | LAB | | + +---------+ + + + | Absolute | | / L | EXTERNAL | | | Segmented | | | LAB | | | Neutrophils | | | | | + +---------+ + + + | Absolute | | / L | EXTERNAL | | | Lymphocytes | | | LAB | | + +---------+ + + + | Absolute | | / L | EXTERNAL | | | Monocytes | | | LAB | | + +---------+ + + + | Absolute | | / L | EXTERNAL | | | Eosinophils | | | LAB | | + +---------+ + + + | Absolute | | [...] | + +---------+ + + Uric Acid (04/26/2018 12:00 AM PST) + +-------+ + + + | Component | Value | Ref Range | Performed | Pathologist | | | | | At | Signature | + +-------+ + + + | Uric Acid | 5.3 | 2.3 - 6.6 | EXTERNAL | [...] + +---------+ + + Parathyroid Hormone, Intact (04/26/2018 12:00 AM PST) + + + + + + | Component | Value | Ref Range | Performed | Pathologist | | | | | At | Signature | + + + + + + | PTH INTACT | 74.58 (A) | 15 - 65 pg/mL | [...] | | + +---------+ + + Magnesium (04/26/2018 12:00 AM PST) + +---------+ + + + | Component | Value | Ref Range | Performed | Pathologist | | | | | At | Signature | + +---------+ + + + | Magnesium | 1.5 (A) | 1.7 - 2.5 mg/dL | EXTERNAL [...] + +---------+ + + Renal Function Panel (04/26/2018 12:00 AM PST) + + + + + + | Component | Value | Ref Range | Performed | Pathologist | | | | | At | Signature | + + + + + + | Glucose, | 138 (A) | 70 - 100 mg/dL | EXTERNAL | | | Fasting | | | LAB | | + + + + + + | BUN | 31 (A) | 6 - 23 mg/dL | EXTERNAL | | | | | | LAB | | + + + + + + | Creatinine | 1.51 (A) | 0.70 - 1.25 | EXTERNAL | | | | | mg/dL | LAB | | + + + + + + | PHOSPHORUS | 3.5 | 2.5 - 5.0 mg/dL | EXTERNAL | | | | | | LAB | | + + + + + + | Albumin | 3.5 | 3.5 - 5.0 | EXTERNAL | | | | | | LAB | | + + + + + + | Na | 142 | 132 - 143 | EXTERNAL | | | | | mmol/L | LAB | | + + + + + + | K | 4.4 | 3.6 - 5.1 | EXTERNAL | | | | | mmol/L | LAB | | + + + + + + | Cl | 99 | 95 - 112 mmol/L | EXTERNAL | | | | | | LAB | | + + + + + + | CO2 | 32 (A) | 19 - 31 mmol/L | EXTERNAL | | | | | | LAB | | + + + + + + | Anion Gap | 15.4 | 7 - 21 mmol/L | EXTERNAL | | | | | | LAB | | + + + + + + | eGFR if not | | | EXTERNAL | | | | | | LAB | | | [place] | | | | | + + + + + + | Phosphorus, | | | EXTERNAL | | | Inorganic | | | LAB | | + + + + + + | BUN/Creatin | 20.5 | 6 - 28.6 | EXTERNAL | | | ine Ratio | | | LAB | | + + + + + + | Calcium | 9.7 | 8.5 - 10.3 | EXTERNAL | | | | | mg/dL | LAB | | + + + + + + | Estimated | 35 | mg/dL | EXTERNAL | | | [...]
--- OUTSIDE RECORDS SUMMARY | ~2019-05-31 | XMS | Encounter Summary ---
Demographics + + + | Address | [address] | | | [place] [address] | + + + | Home Phone | | + + + | Preferred Language | Unknown | + + + | Marital Status | Legally | + + + | Quaker Affiliation | Unknown | + + + | Race | Unknown | + + + | Ethnic Group | Unknown | + + + Author + + + | Author | [facility] | | | and [place] | + + + | Organization | [facility] | | | and [...] [place] | | | | | [address] | | + + + + + | Vnonie Martinez | ECON | Unknown | | + + + + + Care Team Providers + +------+ + | Care Physical Security Manager Name | Role | Phone | + +------+ + | Oscar Taylor PA-C | PCP | | + +------+ + Encounter Details +--------+ + + + + | Date | Type | Department | Care Team | Description | +--------+ + + + + | 12/24/ | Orders Only | [facility] | Conversion | | | 2018 | | NEPHROLOGY [place] | Transaction, | | | | | [address] | Provider Unknown | | | | | [address] [place] | | | | | | [address] | (Fax) | | | | | [phone] | | | +--------+ + + + [...] SORIANO | | | | | | [place] [address] | | | | | | [phone] | | | | | | | [...] - 1.030 | EXTERNAL | | | [place] | | | LAB | | + [...] | | | LAB | | | [place] | | | | | + + [...]
--- OUTSIDE RECORDS SUMMARY | ~2019-05-31 | XMS | Encounter Summary ---
Demographics + + + | Address | [address] | | | [place] [address] | + + + | Home Phone | | + + + | Preferred Language | Unknown | + + + | Marital Status | Legally | + + + | Synagogue Affiliation | Unknown | + + + | Race | Unknown | + + + | Ethnic Group | Unknown | + + + Author + + + | Author | [facility] | | | and [place] | + + + | Organization | [facility] | | | [...] [place] | | | | | [address] | | + + + + + | Vonnie Martinez | ECON | Unknown | | + + + + + Care Team Providers + +------+ + | Care Hod Carrier Name | Role | Phone | + [...] | | (obstructive | Jessika B, | [place] | | | | | sleep | MD [address] | [address], | | | | | apnea) | [address] | [place] [address] | | | | | Procedures | LUCIA MYERS, | Phone: | | | | | [place] | [place] [address] | [phone] | | | | | 6/>YRS SLEEP | | Fax: | | | | | 4/> ADDL | | [phone] | | | | | FAUSTO ATTND [...] asthma (Primary Dx); | | | | [place], | | Allergic rhinitis; | | | | [place] [address] | | CHEL (obstructive | | | | [phone] | | sleep apnea) | +--------+---------+ + [...] a CPAP machine. She was told in [place] she di d not have to use her CPAP machine and placed her on oxygen. They did not repeat her sleep s tudy. Past Medical History Past Medical History Diagnosis Date Acute respiratory failure (HCC) asthma/copd exacebration COPD (chronic obstructive pulmonary disease) ([facility]) CHEL (obstructive sleep apnea) AHI 22.8 [...] N/A Years of Education: N/A Occupational History [employer]. Social History Main Topics Smoking status: Former Smoker -- 1.0 packs/day for 40 years Quit date: 08/04/2012 Smokeless tobacco: Never Used Alcohol Use: No Drug Use: Yes Comment: clean for 15 years, used cocaine for only 2 years Sexually Active: None Other Topics Concern None Social History Narrative Lives in [place] with her grandchildren. She is from her [...] morning (before breakfast ). Respiratory Therapy Supplies [facility] Res Med S9 auto CPAP 5-15 cm H2O. Heater and Humidifi er. All necessary supplies.AHI 22.8. Diagnosis Code(s)327.23. Length of Need lifetime. Gian wall send order to [facility] [place]. Send copy of sleep study from 2005 [...] and used her CPAP until moving to [facility], when she turned it in. She attempted to get a CPAP in [place] and was told she neede d only oxygen at that time. Getting her apnea under control is going to affect how she feels , and affect her breathing, diabetes control, etc. We will refer for a repeat diagnostic [facility] to qualify her for treatment. Plan [...] made to ensure accuracy; however, inadvertent computerized reinforced steel placing supervisor errors may be pre sent. Electronically signed [...] SORIANO | | | | | | [place] [address] | | | | | | [phone] | | | | | | | [...]
--- OUTSIDE RECORDS SUMMARY | ~2019-05-31 | XMS | Encounter Summary ---
Demographics + + + | Address | [address] | | | [place] [address] | + + + | Home Phone [...] [place] | | | | | [address] | | + + + + + | Vonnie Martinez | ECON | Unknown | | + + + + + Care Team Providers + +------+ + | Care Door Installer Name | Role | Phone | + +------+ + | Oscar Taylor PA-C | PCP | | + +------+ + Encounter Details +--------+ + + + + | Date | Type | Department | Care Team | Description | +--------+ + + + + | 08/23/ | Orders Only | [facility] | Conversion | | | 2018 | | NEPRHOLOGY [place] | Transaction, | | | | | [address] | Provider Unknown | | | | | [address] [place], [place] | [phone] | | | | | [address] | | | | | | [phone] | | | +--------+ + + + [...] SORIANO | | | | | | [place] [address] | | | | | | [phone] | | | | | | | [...]
--- OUTSIDE RECORDS SUMMARY | ~2019-05-31 | XMS | Encounter Summary ---
Demographics + + + | Address | [address] | | | [place] [address] | + + + | Home Phone [...] + | Author | [facility] | | | and [place] | + + + | Organization | [facility] | | | and [...] [place] | | | | | [address] | | + + + + + | Vonnie Martinez | ECON | Unknown | | + + + + + Care Team Providers + +------+ + | Care Director Of Integrated Marketing Name | Role | Phone | + +------+ + | Oscar Taylor PA-C | PCP | | + +------+ + Encounter Details +--------+ + + + + | Date | Type | Department | Care Team | Description | +--------+ + + + + | 03/04/ | Orders Only | [facility] | Conversion | | | 2017 | | NEPHROLOGY [place]IE | Transaction, | | | | | [address] | Provider Unknown | | | | | [address] [place] | | | | | | [address] | (Fax) | | | | | [phone] | | | +--------+ + + + [...] SORIANO | | | | | | [place] [address] | | | | | | [phone] | | | | | | | [...]
--- OUTSIDE RECORDS SUMMARY | ~2019-05-31 | XMS | Clinical Summary ---
Demographics + + + | Address | [address] | | | [place] [address] | + + + | Home Phone | | + + + | Preferred Language | Unknown | + + + | Marital Status | Legally | + + + | Temple Affiliation | Unknown | + + + | Race | Unknown | + + + | Ethnic Group | Unknown | + + + Author + + + | Author | [facility] | | | and [place] | + + + | Organization | [facility] | | | [...] [place] | | | | | [address] | | + + + + + | Vonnie Martinez | ECON | Unknown | | + + + + + Care Team Providers + +------+ + | Care Package Worker Name | Role | Phone | + [...] 12/2 | | Activ | | (MYCOSTATIN) [id number] | BID FOR 7-10 DAYS | | [...] 2 (two) times | | | | 08/10 | ntinu | | | daily with [...] 0.5 tablets by | | 0 | | 04/21 | Disco | | tablet | mouth daily. | | | 01/07 | 08/10 | ntinu | | | | | | 18 | 19 | ed | | | | | | | | (Dupl | | | | | | | | icate | | | | | | | | | | | | | | | | Entry | | | | | | | | ) | + + + +---------+------+------+-------+ | adalimumab (HUMIRA | | | 0 | 04/0 | 04/21 | Disco | | PEN-CD/UC/HS | | | | 10/08 | 08/10 | ntinu | | STARTER) 80 mg/0.8 [...] (NEURONTIN) 800 MG | | | | 5/20 | 2/20 | ntinu | | tablet | | [...] 8 H PRF | | 0 | 06/21 | 04/21 | Disco | | (ZOFRAN) 8 MG tablet | NAUSEA | | | /20 | 2/20 | ntinu | | | [...] T PO QHS | | 2 | 01/0 | 04/21 | Disco | | (DESYREL) 50 mg | | | | 2/20 | 08/10 | ntinu | | tablet [...] Phan Jones, | Medication Refill | | 2018 | | | CASEWORK SUPERVISOR | | +--------+---------+ + + + from [...] + | Maternal Grandfather | | | [place] | | | | (Age | | | | | 62) | | + +------+ + + | Maternal Grandmother | | | AR | | | | (Age | | [...] + + + + Plan of Treatment +--------+---------+ + + + | Date | Type | Specialty | Care Team | Description | +--------+---------+ + + + | 06/12/ | Office | Cardiology | [facility] | | | 2019 | Visit | | [address] | | | | | | [address] | | | | | | [place] [address] | | | | | | [phone] | | | | | | | | +--------+---------+ + + + + + + + [...] + + + | Vaccine: | | 08/11/2012 | | | Pneumococcal 65+ (1 | 9 | | | | of 2 - PCV13) | | | | + + + [...] | | | | | by [facility] [place] Read Only, | | | | | | [facility] Jane[facility] (780), | | | | | | sound editor Girish Rivera | | | | | | (949) on 05/03/2019 | | | | | [...] +--------+ +---------+--------+ | MEDICARE | MEDICA | [id number] | 10/20/19 | [phone] | | Medica | | | RE | | 12-Pre | 5 | | re | | | PART A | | sent | | | | | | AND B | | | | | | + +--------+ +--------+ +---------+--------+ | MEDICARE | MEDICA | [id number] | 10/20/19 | [phone] | | Medica | | | RE | | 12-Pre | 5 | | re | | | PART A | | sent | | | | | | AND B | | | | | | + +--------+ +--------+ +---------+--------+ | AARP | AARP | [id number] | 06/21/19 | [phone] | | Indemn | | | MDCR | | 19-Pre | 0 | | ity | | | SUPPL | | sent | | | | + +--------+ +--------+ +---------+--------+ | AARP | AARP | [id number] | | [phone] | | Indemn | [...] | | al/Fam | | 1955 | [phone] | [place] | | | maira | | | 9 (Home) | [address] | | | | | | [phone] | | | | | | | 8 (Work) | | + +--------+ +--------+ + + | Rebeca Watson | Person | Self | [birth year] | [address] | | | al/Fam | | 1955 | [phone] | [place] | | | maira | | | 9 (Home) | [address] | | | | | | [phone] | | | | | | | 8 (Work) | | + +--------+ +--------+ + + Advance Directives + + + + + | Type | Date Recorded | Patient | Explanation | | | | Timber Trimmer | | + + + + + | Power of | | | | | Senior Marketing Coordinator | | | | + + + + + | Advance | | | | | Directive | | | | + + + + +
--- OUTSIDE RECORDS SUMMARY | ~2019-05-31 | XMS | Encounter Summary ---
Demographics + + + | Address | [address] | | | [place] [address] | + + + | Home Phone | | + + + | Preferred Language | Unknown | + + + | Marital Status | Legally | + + + | Jainism Affiliation | Unknown | + + + | Race | Unknown | + + + | Ethnic Group | Unknown | + + + Author + + + | Author | [facility] | | | and [place] | + + + | Organization | [facility] [...] [place] | | | | | [address] | | + + + + + | Vonnie Martinez | ECON | Unknown | | + + + + + Care Team Providers + +------+ + | Care Design Engineering Technician Name | Role | Phone | + +------+ + | Oscar Taylor PA-C | PCP | | + +------+ + Encounter Details +--------+ + + + + | Date | Type | Department | Care Team | Description | +--------+ + + + + | 11/02/ | Orders Only | [facility] | Phan Jones, | | | 2018 | | NEPHROLOGY [facility] | PROFESSOR OF HISTORY [address] | | | | | [address] | [address] | | | | | [address] [facility], [place] | [place], [place] | | | | | [address] | [address] | | | | | [phone] | [phone] | | | | | | | [...] | | | | | [place] [address] | | | | | | [phone] | | | | | | | | +--------+---------+ + + + documented as of this encounter Procedures + +--------+ + + + | Procedure Name | Priori | Date/Time | Associated Diagnosis | Comments | | | ty | | | | + +--------+ + + + | EXTERNAL LAB: CBC | Routin | 11/02/2018 | | Results [...] | | | LAB | | | [place] | | | | | + +---------+ [...]
--- OUTSIDE RECORDS SUMMARY | ~2019-05-31 | XMS | Encounter Summary ---
Demographics + + + | Address | [address] | | | [place] [address] | + + + | Home Phone | | + + + | Preferred Language | Unknown | + + + | Marital Status | Legally | + + + | Voodoo Affiliation | Unknown | + + + [...] [place] | | | | | [address] | | + + + + + | Vonnie Martinez | ECON | Unknown | | + + + + + Care Team Providers + +------+ + | Care Fixed Wing Pilot Name | Role | Phone | + +------+ + | Oscar Taylor PA-C | PCP | | + +------+ + Encounter Details +--------+ + + + + | Date | Type | Department | Care Team | Description | +--------+ + + + + | 05/21/ | Orders Only | [facility] | Conversion | | | 2017 | | NEPRHOLOGY [place] | Transaction, | | | | | [address] | Provider Unknown | | | | | [address] [place], [place] | [phone] | | | | | [address] | | | | | | [phone] | | | +--------+ + + + [...] SORIANO | | | | | | [place] [address] | | | | | | [phone] | | | | | | | [...] - 1.030 | EXTERNAL | | | [place] | | | LAB | | + [...] | | | LAB | | | [place] | | | | | + + [...]
--- OUTSIDE RECORDS SUMMARY | ~2019-05-31 | XMS | Encounter Summary ---
Demographics + + + | Address | [address] | | | [place] [address] | + + + | Home Phone | | + + + | Preferred Language | Unknown | + + + | Marital Status | Legally | + + + | Mandaen Affiliation | Unknown | + + + | Race | Unknown | + + + | Ethnic Group | Unknown | + + + Author + + + | Author | [facility] | | | and [place] | + + + | Organization | [facility] | | | and [...] [place] | | | | | [address] | | + + + + + | Vonnie Martinez | ECON | Unknown | | + + + + + Care Team Providers + +------+ + | Care Laceworker Name | Role | Phone | + +------+ + | Oscar Taylor PA-C | PCP | | + +------+ + Encounter Details +--------+ + + + + | Date | Type | Department | Care Team | Description | +--------+ + + + + | 01/12/ | Orders Only | [facility] | Provider, | Chronic kidney | | 2019 | | SYSTEM GENERIC OP | MD [address] | disease, stage III | | | | CONVERSION [address] | [address] | (moderate) (HCC); | | | | [address] [place], [place] | [place] [address] | Essential (primary) | | | | [address] | | hypertension; | | | | [phone] | | Generalized edema; | | | [...] SORIANO | | | | | | [place] [address] | | | | | | [phone] | | | | | | | | +--------+---------+ + + + + +------+--------+ + + | Name | Type | Priori | Associated Diagnoses | Order Schedule | | | | ty | | | + +------+--------+ + + | Protein/Creatinine | Lab | Routin | Chronic kidney | Expected: | | Ratio, Urine | | e | disease, stage III | 10/27/2018, Expires: | | | | | (moderate) (HCC) | 04/27/2020 | | | | | Essential (primary) | | | | | | hypertension | | | | | | Generalized edema | | | | | | Proteinuria | | + +------+--------+ + + documented as of this encounter Visit Diagnoses + + | Diagnosis | + + | Chronic kidney disease, stage III (moderate) (HCC) Chronic kidney disease, Stage III | | (moderate) | + + | Essential (primary) hypertension Unspecified essential hypertension | + + | Generalized edema Edema | + + | Proteinuria | + + documented in this encounter"
--- OUTSIDE RECORDS SUMMARY | ~2019-05-31 | XMS | Encounter Summary ---
Demographics + + + | Address | [address] | | | [place] [address] | + + + | Home Phone [...] [place] | | | | | [address] | | + + + + + | Vonnie Martinez | ECON | Unknown | | + + + + + Care Team Providers + +------+ + | Care Traffic Controller Cable Name | Role | Phone | + [...] | | (obstructive | Jessika B, | [place] | | | | | sleep | MD [address] | [address], | | | | | apnea) | [address] | [place] [address] | | | | | Procedures | LUCIA MYERS, | Phone: | | | | | [place] | [place] [address] | [phone] | | | | | 6/>YRS SLEEP | | Fax: | | | | | 4/> ADDL | | [phone] | | | | | FAUSTO ATTND | | | | | | | NPSG | | | +--------+ + + + + + Encounter Details +--------+ + + + + | Date | Type | Department | Care Team | Description | +--------+ + + + + | 11/06/ | Hospital | [facility] | Offenstein, | CHEL (obstructive | | 2013 | Encounter | MED CTR SLEEP | Jessika Lewis MD | sleep apnea) | | | | [address] [place] | | | | | | [place] | | | | | | [address] | | | | | | [phone] | | | +--------+ + + + [...] SORIANO | | | | | | [place] [address] | | | | | | [phone] | | | | | | | [...]
--- OUTSIDE RECORDS SUMMARY | ~2019-05-31 | XMS | Encounter Summary ---
Demographics + + + | Address | [address] | | | [place] [address] | + + + | Home Phone | | + + + | Preferred Language | Unknown | + + + | Marital Status | Legally | + + + | Taoism Affiliation | Unknown | + + + [...] | [address] | | | | | [place] | | | | | [address] | | + + + + + | Vonnie Martinez | ECON | Unknown | | + + + + + Care Team Providers + +------+ + | Care Sawsmith Name | Role | Phone | + +------+ + PCP | Unavailable | + +------+ + Encounter Details +--------+ + + + + | Date | Type | Department | Care Team | Description | +--------+ + + + + | 03/07/ | Hospital | [facility] | Kulwinder Lima | | | 2006 | Encounter | MED CTR SLEEP | MD Ampar[address] | | | | | [address] [address] | [address] [place] | | | | | [place], [place] | [place] [address] | | | | | [address] | [phone] | | | | | [phone] | | | +--------+ + + + [...] SORIANO | | | | | | [place] [address] | | | | | | [phone] | | | | | | | | +--------+---------+ + + + documented as of this encounter Visit Diagnoses Not on filedocumented in this encounter"
--- OUTSIDE RECORDS SUMMARY | ~2019-05-31 | XMS | Encounter Summary ---
Demographics + + + | Address | [address] | | | [place] [address] | + + + | Home Phone [...] + + | Author | [facility] | | | and [place] | + + + | Organization | [facility] | | | [...] [place] | | | | | [address] | | + + + + + | Vonnie Martinez | ECON | Unknown | | + + + + + Care Team Providers + +------+ + | Care Binder Sorter Name | Role | Phone | + [...] | | | | OFFICE | [place] [address] | | | | | | VISIT | Phone: | | | | | | REGULAR | [phone] | | | | | | | Fax: | | | | | | | [phone] | | +--------+--------+ + + + + [...] | (Primary Dx); | | | | [place] [address] | | Chronic obstructive | | | | [phone] | | asthma | +--------+---------+ + + [...] you can pick this up at [facility]. I would call the [facility] to make an appointment to pick it up so they can show you how to use it. They can also fit y ou to a mask. I will then see you back in about 2 weeks with a download from the machine. To get the download, you will take the machine or the chip from the back of the machine in to the [facility] [facility] and they can download information from the [...] or other sinus rinse products at [facility] (such as M2G Sinus Rinse Kit). 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 Social History Main Topics Smoking status: Former Smoker -- 1.0 packs/day for 40 years Quit date: 08/04/2012 Smokeless tobacco: Never Used Alcohol Use: No Drug Use: Yes Comment: clean for 15 years, used cocaine for only 2 years Sexually Active: None Other Topics Concern None Social History Narrative Lives in [place] with her grandchildren. She is from her [...] SYRINGE 1ML/31G 31G X 5/16" 1 ML [facility] Respiratory Therapy Supplies [facility] Res Med S9 auto CPAP 5-15 cm H2O. Heater and Humidifi er. All necessary supplies.AHI 22.8. Diagnosis Code(s)327.23. Length of Need lifetime. Gian wall send order to [facility] [place]. Send copy of sleep study from 2005 [...] a financial issu e). Prescribed auto CPAP, [id number] as a starting point as that is [...] daughter with greater than 50% spent in addiction treatment counselor ing and coordination of care regarding [...] made to ensure accuracy; however, inadvertent computerized manager retail sales errors may be pre sent. Electronically signed [...] SORIANO | | | | | | [place] [address] | | | | | | [phone] | | | | | | | | +--------+---------+ + + + documented as of this encounter Visit Diagnoses + + | Diagnosis | + + | CHEL (obstructive sleep apnea) - Primary Obstructive sleep apnea (adult) (pediatric) | + + | Chronic obstructive asthma Chronic obstructive asthma, unspecified | + + documented in this encounter
--- OUTSIDE RECORDS SUMMARY | ~2019-05-31 | XMS | Encounter Summary ---
Demographics + + + | Address | [address] | | | [place] [address] | + + + | Home Phone [...] + + + | Author | [facility] | | | and [place] | + + + | Organization | [facility] | | | [...] [place] | | | | | [address] | | + + + + + | Vonnie Martinez | ECON | Unknown | | + + + + + Care Team Providers + +------+ + | Care Zoo Caretaker Name | Role | Phone | + +------+ + | Oscar Taylor PA-C | PCP | | + +------+ + Encounter Details +--------+ + + + + | Date | Type | Department | Care Team | Description | +--------+ + + + + | 11/11/ | Orders Only | [facility] | Conversion | | | 2017 | | NEPHROLOGY CECE[place]ANIE | Transaction, | | | | | [address] | Provider Unknown | | | | | [address] [facility] | | | | | | [address] | (Fax) | | | | | [phone] | | | +--------+ + + + [...] | | | | | | [place] [address] | | | | | | [phone] | | | | | | | [...]
--- OUTSIDE RECORDS SUMMARY | ~2019-05-31 | XMS | Clinical Summary ---
Demographics + + + | Address | [address] | | | [place] [address] | + + + | Home Phone | | + + + | Preferred Language | Unknown | + + + | Marital Status | Unknown | + + + | Latter Day Affiliation | Unknown | + + + | Race | Unknown | + + + | Ethnic Group | Unknown | + + + Author + + + | Author | [facility] (Historical as of | | | 02-04-19) | + + + | Organization | [facility] (Historical as of | | | 02-04-19) | + + + | Address | Unknown | + + + | Phone | Unavailable | + + + Support + + + + + | Name | Relationship | Address | Phone | + + + + + | Peewee Watson | TINA | [address] | | | | | [place] | | | | | [address] | | + + + + + | Vonnie Martinez | ECON | Unknown | | + + + + + Care Team Providers + +------+ + | Care Air Export Coordinator Name | Role | Phone | [...] | | | | + + +---------+---------+------+------+-------+ Active Problems [...] + | Maternal Grandfather | | | [place] | | | | (Age | | | | | 62) | | + +------+ + + | Maternal Grandmother | | | [place] | | | | (Age | | [...] +------+-------+ + | MEDICARE | MEDICA | [id number] | | | [address] | | | RE | | | | [place] [address] | | | IP-OP | | | | | + +--------+ +------+-------+ + | UNITED HEALTHCARE | UNITED | [id number] | | | | | | | [...] | + +--------+ +--------+ + + | TYMODESTA AVIS | Person | Self | [birth year] | Home: | [address] | | | al/[place] | | 1955 | [phone] | [place] | | | maira | | | [address] | [address] | + +--------+ +--------+ + +
--- OUTSIDE RECORDS SUMMARY | ~2019-05-31 | XMS | Clinical Summary ---
Demographics + + + | Address | [address] | | | [place] [address] | + + + | Home Phone [...] Team Providers + +------+ + | Care Stock And Station Agent Name | Role | Phone | + +------+ + | Garret Rojo MAJOR CASE DETECTIVE | PCP | | + +------+ + Source Comments RYANNE is fully live on both [facility] Ambulatory and [facility] InPatient.[facility] Allergies Not on File Medications Not [...] | MEDICA | xxxxxxxxxx | 10/20/19 | [phone] | [address] | Medica | | | RE A & | | 12-Pre | 1 | [address] | re | | | [address] | | sent | | [place] | | | | | | | | [address] | | + +--------+ +--------+ + +--------+ [...] | 1955 | [phone] | [place] [address] | | | maira | | | 9 (Home) | | + +--------+ +--------+ + +"
--- OUTSIDE RECORDS SUMMARY | ~2019-05-31 | XMS | Encounter Summary ---
Demographics + + + | Address | [address] | | | [place] [address] | + + + | Home Phone | | + + + | Preferred Language | Unknown | + + + | Marital Status | Legally | + + + | Caodaism Affiliation | Unknown | + + + | Race | Unknown | + + + | Ethnic Group | Unknown | + + + Author + + + | Author | [facility] | | | and [place] | + + + | Organization | [facility] | | | [...] [place] | | | | | [address] | | + + + + + | Vonnie Martinez | ECON | Unknown | | + + + + + Care Team Providers + +------+ + | Care Meter And Regulator Shop Supervisor Name | Role | Phone | [...] + + | 09/08/ | Office | [facility] | [place], | Chronic obstructive | | 2012 | Visit | PULMONARY [address] | Jessika Lewis MD | asthma (HCC) | | | | [place], | | (Primary Dx); CHEL | | | | [place] [address] | | (obstructive sleep | | | | [phone] | | apnea); Allergic | | | [...] Instructions Danica Ramires - [facility]08[facility]2012 [facility] Rebeca [facility] [address] [place] [address] Dear Rebeca: Thank you for enrolling in [facility]. Please follow the instructions below to view your secFyber e online medical record. [facility] allows you to send secure messages to your doctor, view you r test results, renew your prescriptions, schedule appointments, and more. How Do I Sign Up? 1. In your Internet browser, go to [email or web address] 2. Click on the Sign Up Now link in the Sign In box. This will take you to the [facility] Sign Up page. 3. Enter your [facility] access code exactly as it appears below. You will not need to use this code after you sign up. If you do not sign up before the expiration date, you must requ est a new code through your [facility]. [facility] Access Code: [email or web address] Expires: 11/07/2012 14:27 4. Fill in the last four digits of your Social Security Number (xxxx) and Date of (mm/dd/yyyy) when asked and click Submit. You will now be asked to create a [facility] ID. 5. Create a Raincrow Studiost ID. This will be your [facility] login ID. Your login ID cannot be rodriguez ged, so think of one that is secure and easy to remember. 6. Create a [facility] password. You can change your password at any time. 7. Enter your Password Reset Question and Answer. This can be used at a later time if yo u forget your password. 8. Enter your e-mail address. You will receive e-mail notification when new information is available in [facility]. 9. Click Sign Up. You may now view your medical record. Additional Information If you have questions, you can email [email or web address] or call [phone] to talk to our [facility] care team. Please remember, [facility] should NOT be used fo r urgent needs. For all medical emergencies, call 211. Sincerely, Jessika Kruger MD Change Symbicort to [...] respiratory arrest requiring BiPAP, and developed an SC due to demand ischemia from severe hypertension with pu lmonary edema. She was hospitalized for 4 days. She quit smoking during that admission. She went home and did improve. She then got worse about 1-2 weeks later. She went back to health system on August 28 and was kept overnight. She notes that since then she has been ti red. Her breathing has been okay. She is just fatigued a lot. She has carried a diagnosis of asthma since 1994 when she moved to [place]. (Actually, we note later that it is before this when she lived in [place] and she was hospitalized sever al times as well too). She had only been on as needed albuterol in the past. She is currentl y on twice daily Symbicort, as needed Ventolin and albuterol nebulizers since her last hosit alization. She is using the Ventolin three times a week and the albuterol nebulizer once a w kwethluk. She is waking up at night short of breath three times a week. This is improving gradual ly. Currently they are able to walk several hundred yards at their own pace on level ground. Javad wall is doing 10 minutes of walking daily at [place], and is working up to 20 minutes [...] use it. 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 Social History Main Topics Smoking status: Former Smoker -- 1.0 packs/day for 40 years Quit date: 08/04/2012 Smokeless tobacco: Never Used Alcohol Use: No Drug Use: Yes clean for 15 years, used cocaine for only 2 years Sexually Active: None Other Topics Concern None Social History Narrative Lives in [place] with her grandchildren. She is from her [...] Please send order to [facility] [place]. Send copy of sleep study 2005. Allergic [...] made to ensure accuracy; however, inadvertent computerized federal appellate clerk errors may be pre sent. documented in [...] SORIANO | | | | | | [place] [address] | | | | | | [phone] | | | | | | | [...]
--- OUTSIDE RECORDS SUMMARY | ~2019-05-31 | XMS | Clinical Summary ---
Demographics + + + | Address | [address] | | | [place] [address] | + + + | Home Phone | | + + + | Preferred Language | Unknown | + + + | Marital Status | Unknown | + + + | Roman Catholic Affiliation | Unknown | + + + | Race | Unknown | + + + | Ethnic Group | Unknown | + + + Author + + + | Author | [facility] (Historical as of | | | 02-04-19) | + + + | Organization | [facility] (Historical as of | | | 02-04-19) [...] [place] | | | | | [address] | | + + + + + | Vonnie Martinez | ECON | Unknown | | + + + + + Care Team Providers + +------+ + | Care Tunnel Form Placing Supervisor Name | Role | Phone | [...] + | Maternal Grandfather | | | [place] | | | | (Age | | | | | 62) | | + +------+ + + | Maternal Grandmother | | | [place] | | | | (Age | | [...] +------+-------+ + | MEDICARE | MEDICA | [id number] | | | [address] | | | RE | | | | [place] [address] | | | IP-OP | | | | | + +--------+ +------+-------+ + | UNITED HEALTHCARE | UNITED | [id number] | | | | | | | [...] | | al/[place] | | 1955 | [phone] | [place] | | | maira | | | [address]89 | [address] | + +--------+ +--------+ + +
--- OUTSIDE RECORDS SUMMARY | ~2019-05-31 | XMS | Encounter Summary ---
Demographics + + + | Address | [address] | | | [place] [address] | + + + | Home Phone [...] + + + | Author | [facility] | | | and [place] | + + + | Organization | [facility] | | | [...] [place] | | | | | [address] | | + + + + + | Vonnie Martinez | ECON | Unknown | | + + + + + Care Team Providers + +------+ + | Care Vacuum Filter Operator Name | Role | Phone | + +------+ + | Oscar Taylor PA-C | PCP | | + +------+ + Encounter Details +--------+ + + + + | Date | Type | Department | Care Team | Description | +--------+ + + + + | 11/19/ | Orders Only | [facility] | Conversion | | | 2017 | | NEPHROLOGY CECESTEPHANIE | Transaction, | | | | | [address] | Provider Unknown | | | | | [address] [place] | | | | | | [address] | (Fax) | | | | | [phone] | | | +--------+ + + + [...] SORIANO | | | | | | [place] [address] | | | | | | [phone] | | | | | | | [...]
--- OUTSIDE RECORDS SUMMARY | ~2019-05-31 | XMS | Encounter Summary ---
Demographics + + + | Address | [address] | | | [place] [address] | + + + | Home Phone | | + + + | Preferred Language | Unknown | + + + | Marital Status | Legally | + + + | Caodaism Affiliation | Unknown | + + + | Race | Unknown | + + + | Ethnic Group | Unknown | + + + Author + + + | Author | [facility] | | | and [place] | + + + | Organization | [facility] | | | [...] [place] | | | | | [address] | | + + + + + | Vonnie Martinez | ECON | Unknown | | + + + + + Care Team Providers + +------+ + | Care Freight Representative Name | Role | Phone | + +------+ + | Oscar Taylor PA-C | PCP | | + +------+ + Encounter Details +--------+ + + + + | Date | Type | Department | Care Team | Description | +--------+ + + + + | 12/31/ | Orders Only | [facility] | Phan Jones, | | | 2017 | | NEPRHOLOGY [place] | ELECTRONIC INTEGRATED SYSTEMS MECHANIC [address] | | | | | [address] | [place] | | | | | [address] [place], [place] | [facility] [place] | | | | | [address] | [address] | | | | | [phone] | [phone] | | | | | | | [...] SORIANO | | | | | | [place] [address] | | | | | | [phone] | | | | | | | [...]
--- OUTSIDE RECORDS SUMMARY | ~2019-05-31 | XMS | Encounter Summary ---
Demographics + + + | Address | [address] | | | [place] [address] | + + + | Home Phone | | + + + | Preferred Language | Unknown | + + + | Marital Status | Legally | + + + | Taoist Affiliation | Unknown | + + + | Race | Unknown | + + + | Ethnic Group | Unknown | + + + Author + + + | Author | [facility] | | | and [place] | + + + | Organization | [facility] | | | [...] [place] | | | | | [address] | | + + + + + | Vonnie Martinez | ECON | Unknown | | + + + + + Care Team Providers + +------+ + | Care At&T Retailer Sales Consultant Name | Role | Phone [...] | | Essential | [place], | [facility] | | | | | hypertension | MD [address] | | | | | Type [address] | [address] | [place] [place] | | | | | diabetes | [place] [address] | [place] | | | | | mellitus | [place], [place] | [address] | | | | | without | [address] | Phone: | | | | | complication | Phone: | [phone] | | | | | , with | [phone] | Fax: | | | | | long-term | Fax: | [phone] | | | | | current use | [phone] | | | | | | of insulin | | | | | | | ([facility]) Chest | | | | | | [...] + + | 05/02/ | Office | [facility] | [place], | Essential | | 2019 | Visit | CARDIOLOGY [place] | [address] | hypertension | | | | [address] [facility] | [place], | (Primary Dx); Pedal | | | | [address] | [place] [address] | edema; Stage 3 | | | | [place], [place] | [phone] | chronic kidney | | | | [address] | | disease (HCC); | | | | [phone] | | Centrilobular | | | | [...] | | | | | | adult ([facility]) | +--------+---------+ + + + Social History [...] 2-day protocol Lexiscan Cardiolite stress test at [facility]. A 48-hour Holter monitor will also be done to evaluate the symptoms. I saw her 05/20/17, for increasing pedal edema present intermittently for an undetermined time. She was a markedly poor historian. I was able to review records from her hospitalizat ion at [facility] August 04-2012, when she was admitted for [...] darrian turia, urinary urgency, hesitancy. No current acetylene burner disorders. HEMATOLOGY/ONCOLOGY: No h/o bleeding disorders, DVT, [...] with Proteinuria COPD (chronic obstructive pulmonary disease) ([facility]) Diabetes mellitus type II 1999 Insulin requiring, with Retinopathy, Nephropathy, Neuropathy GERD (gastroesophageal reflux disease) on omeprazole GERD (gastroesophageal reflux disease) H/O cardiac asthma pulmonary edema, acute from severe hypertension and demand ischemia Heart attack ([facility]) 2012 questionable Hepatitis C Hypertension 2009 Hypomagnesemia severe, resolved Localized edema Morbid obesity with BMI of 50.0-59.9, adult ([facility]) Obesity CHEL (obstructive sleep apnea) AHI 22.8 [...] level: Not on file Occupational History 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 Employer: [employer] Social Needs Financial resource strain: [...] file Gets together: Not on file Attends congregation service: Not on file Active member of [...] on file Social History Narrative Lives in [place] with her grandchildren. She is from her [...] R RELION 100 UNIT/ML injection nystatin (MYCOSTATIN) 778403 UNIT/GM cream APPLY TOPICALLY AA BID FOR [...] 5/16" 1 ML MISC Respiratory Therapy Supplies [facility] Res Med S9 auto CPAP 9-15 cm H2O. Heater and Humidifi er. All necessary supplies.AHI 20.1. Diagnosis Code(s)327.23. Length of Need lifetime. Gian wall send order to [facility] [place]. 1 each 99 rOPINIRole (REQUIP) 0.25 mg [...] in this en counter Plan of Treatment +--------+---------+ + + + | Date | Type | Specialty | Care Team | Description | +--------+---------+ + + + | 06/12/ | Office | Cardiology | Linda Angeles | | | 2018 | Visit | | [address] | | | | | | [address] | | | | | | [place] [address] | | | | | | [phone] | | | | | | | [...] | | | | | by [facility] [place] Read Only, | | | | | | [facility] Janeen ([id number]), | | | | | | purchasing expeditor Girish Rivera | | | | | | ([phone]) on 05/03/2019 | | | | | [...]
--- OUTSIDE RECORDS SUMMARY | ~2019-05-31 | XMS | Encounter Summary ---
Demographics + + + | Address | [address] | | | [place] [address] | + + + | Home Phone [...] [place] | | | | | [address] | | + + + + + | Vonnie Martinez | ECON | Unknown | | + + + + + Care Team Providers + +------+ + | Care Die Cast Operator Name | Role | Phone | + +------+ + | Oscar Taylor PA-C | PCP | | + +------+ + Encounter Details +--------+ + + + + | Date | Type | Department | Care Team | Description | +--------+ + + + + | 11/19/ | Orders Only | [facility] | Jeremiah Mendoza MD | | | 2016 | | NEPHROLOGY [place] | [address] [place] | | | | | [address] [place] | [address] [place], [place] | | | | | [address] [facility] [place] | [address] | | | | | [address] | | | | | | [phone] | | | +--------+ + + + [...] | | | | | [place] [address] | | | | | | [phone] | | | | | | | | +--------+---------+ + + + documented as of this encounter Procedures + +--------+ + + + | Procedure Name | Priori | Date/Time | Associated Diagnosis | Comments | | | ty | | | | + +--------+ + + + | EXTERNAL LAB: CBC | Routin | 11/19/2016 | | Results [...]
--- OUTSIDE RECORDS SUMMARY | ~2019-05-31 | XMS | Clinical Summary ---
Demographics + + + | Address | [address] | | | [place] [address] | + + + | Home Phone [...] [place] | | | | | [address] | | + + + + + | Vonnie Martinez | ECON | Unknown | | + + + + + Care Team Providers + +------+ + | Care Intensive Care Specialist Name | Role | Phone | [...] 12/2 | | Activ | | (MYCOSTATIN) [id number] | BID FOR 7-10 DAYS | | [...] Refill | | 2018 | | | THIN FILM TECHNICIAN | | +--------+---------+ + + + from [...] SORIANO | | | | | | [place] [address] | | | | | | [phone] | | | | | | | [...] | | | | | by [facility] [place] Read [facility], | | | | | | [facility] Janeen ([id number]), | | | | | | editorial intern Girish Rivera | | | | | | (676) on 05/03/2019 | | | | | [...] +--------+ +---------+--------+ | MEDICARE | MEDICA | [id number] | 10/20/19 | [phone] | | Medica | | | RE | | 12-Pre | 5 | | re | | | PART A | | sent | | | | | | AND B | | | | | | + +--------+ +--------+ +---------+--------+ | MEDICARE | MEDICA | [id number] | 10/20/19 | [phone] | | Medica | | | RE | | 12-Pre | 5 | | re | | | PART A | | sent | | | | | | AND B | | | | | | + +--------+ +--------+ +---------+--------+ | AARP | AARP | [id number] | 06/21/19 | [phone] | | Indemn | | | MDCR | | 19-Pre | 0 | | ity | | | SUPPL | | sent | | | | + +--------+ +--------+ +---------+--------+ | AARP | AARP | [id number] | | [phone] | | Indemn | [...] | | al/Fam | | 1955 | [phone] | [place] | | | maira | | | 9 (Home) | [address] | | | | | | [phone] | | | | | | | 8 (Work) | | + +--------+ +--------+ + + | Rebeca Watson | Person | Self | [birth year] | | [address] | | | al/Fam | | 1955 | [phone] | [place] | | | maira | | | 9 (Home) | [address] | | | | | | [phone] | | | | | | | 8 (Work) | | + +--------+ +--------+ + + Advance Directives + + + + + | Type | Date Recorded | Patient | Explanation | | | | Lens Examiner | | + + + + + | Power of | | | | | Life Underwriter | | | | + + + + + | Advance | | | | | Directive | | | | + + + + +
--- OUTSIDE RECORDS SUMMARY | ~2019-05-31 | XMS | Encounter Summary ---
Demographics + + + | Address | [address] | | | [place] [address] | + + + | Home Phone [...] Organization | [facility] [...] [place] | | | | | [address] | | + + + + + | Vonnie Martinez | ECON | Unknown | | + + + + + Care Team Providers + +------+ + | Care Marine Electronics Technician Name | Role | Phone | + +------+ + | Oscar Taylor PA-C | PCP | | + +------+ + Encounter Details +--------+ + + + + | Date | Type | Department | Care Team | Description | +--------+ + + + + | 04/26/ | Orders Only | [facility] | Phan Jones, | | | 2017 | | NEPRHOLOGY [place] | SPACE OPERATIONS OFFICER [address] | | | | | [address] | [address] | | | | | [address] [place], [place] | [facility] [place] | | | | | [address] | [address] | | | | | [phone] | [phone] | | | | | | | [...] SORIANO | | | | | | [place] [address] | | | | | | [phone] | | | | | | | [...]
--- OUTSIDE RECORDS SUMMARY | ~2019-05-31 | XMS | Encounter Summary ---
Demographics + + + | Address | [address] | | | [place] [address] | + + + | Home Phone [...] Author + + + | Author | [facility] | | | and [place] | + + + | Organization | [facility] | | | [...] [place] | | | | | [address] | | + + + + + | Vonnie Martinez | ECON | Unknown | | + + + + + Care Team Providers + +------+ + | Care Colleter Name | Role | Phone | + [...] + + | 03/02/ | Refill | [facility] | Phan Jones, | Medication Refill | | 2019 | | NEPHROLOGY [place] | [address] | | | | | [address] [facility] | [place] REA | | | | | [place] | [place] | | | | | [address] | [address] | | | | | [phone] | [phone] | | | | | | | [...] | Cardiology | BridgetteLinda | | | 2019 | Visit | | [address] | | | | | | [place] | | | | | | [place] [address] | | | | | | [phone] | | | | | | | | +--------+---------+ + + + documented as of this encounter Visit Diagnoses Not on filedocumented in this encounter"
--- OUTSIDE RECORDS SUMMARY | ~2019-05-31 | XMS | Encounter Summary ---
Demographics + + + | Address | [address] | | | [place] [address] | + + + | Home Phone [...] [place] | | | | | [address] | | + + + + + | Vonnie Martinez | ECON | Unknown | | + + + + + Care Team Providers + +------+ + | Care Survey Director Name | Role | Phone | + +------+ + | Oscar Taylor PA-C | PCP | | + +------+ + Encounter Details +--------+ + + + + | Date | Type | Department | Care Team | Description | +--------+ + + + + | 11/19/ | Orders Only | [facility] | Jeremiah Mendoza MD | | | 2016 | | NEPHROLOGY [place] | [address] [place] | | | | | [address] [place] | [address] [place], [place] | | | | | [address] [facility], [place] | [address] | | | | | [address] | | | | | | [phone] | | | +--------+ + + + [...] | | | | | [place] [address] | | | | | | [phone] | | | | | | | [...]
--- OUTSIDE RECORDS SUMMARY | ~2019-05-31 | XMS | Encounter Summary ---
Demographics + + + | Address | [address] | | | [place] [address] | + + + | Home Phone | | + + + | Preferred Language | Unknown | + + + | Marital Status | Legally | + + + | Evangelical Affiliation | Unknown | + + + | Race | Unknown | + + + | Ethnic Group | Unknown | + + + Author + + + | Author | [facility] | | | and [place] | + + + | Organization | [facility] | | | [...] [place] | | | | | [address] | | + + + + + | Vonnie Martinez | ECON | Unknown | | + + + + + Care Team Providers + +------+ + | Care Asset Protection Agent Name | Role | Phone | [...] + + | 10/20/ | Office | [facility] | Offenstein, | Acute sinusitis | | 2012 | Visit | PULMONARY [address] | Jessika Lewis MD | (Primary Dx); | | | | [place], | | Chronic obstructive | | | | [place] [address] | | asthma (HCC); | | | | [phone] | | Allergic rhinitis; | | | [...] She will do an extra lap around [employer] before starting her shopping every other day. She does not cough chronically, and does not produce mucous. She has not had hemoptysis. 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 Social History Main Topics Smoking status: Former Smoker -- 1.0 packs/day for 40 years Quit date: 08/04/2012 Smokeless tobacco: Never Used Alcohol Use: No Drug Use: Yes clean for 15 years, used cocaine for only 2 years Sexually Active: None Other Topics Concern None Social History Narrative Lives in [place] with her grandchildren. She is from her [...] Daily. 1 each 11 Respiratory Therapy Supplies [facility] Res Med S9 auto CPAP 5-15 cm [...] does not hear anything fro m the [facility]. She may need another sleep study. - Respiratory Therapy Supplies MISC; Res Med S9 auto CPAP 5-15 cm H2O. Heater and Humidifie r. All necessary supplies.AHI 22.8. Diagnosis Code(s)327.23. Length of Need lifetime. Please send order to [facility] [place]. Send copy of sleep study from 2005 with order. Gerd (gastroesophageal reflux disease) Well controlled on omeprazole. She was advised to call if new pulmonary symptoms were to develop. Return to clinic in 3 months, or sooner with concerns. CC: Oscar Taylor Portions of this report were transcribed using voice recognition software. Every effort wa s made to ensure accuracy; however, inadvertent computerized fish agent errors may be pre sent. documented in [...] SORIANO | | | | | | [place] [address] | | | | | | [phone] | | | | | | | [...]
--- OUTSIDE RECORDS SUMMARY | ~2019-05-31 | XMS | Clinical Summary ---
Demographics + + + | Address | [address] | | | [place] [address] | + + + | Home Phone | | + + + | Preferred Language | Unknown | + + + | Marital Status | | + + + | Samaritan Affiliation | Unknown | + + + [...] Team Providers + +------+ + | Care Pediatric Neurologist Name | Role | Phone | + +------+ + | Garret Rojo CARTRIDGE LOADER | PCP | | + +------+ + Source Comments RYANNE is fully live on both [facility] and [facility] InPatient.[facility] Allergies Not on File Medications Not on [...] | [facility] | xxxxxxxxxx | 10/20/19 | [phone] | [address] | [facility] | | | RE A & | | 12-Pre | 1 | [address] | re | | | B | | sent | | [place] | | | | | | | | [address] | | + +--------+ +--------+ + +--------+ [...] | 1955 | [phone] | [place] [address] | | | maira | | | 9 (Home) | | + +--------+ +--------+ + +"
--- OUTSIDE RECORDS SUMMARY | ~2019-05-31 | XMS | Encounter Summary ---
Demographics + + + | Address | [address] | | | [place] [address] | + + + | Home Phone | | + + + | Preferred Language | Unknown | + + + | Marital Status | Legally | + + + | Hinduism Affiliation | Unknown | + + + [...] [place] | | | | | [address] | | + + + + + | Vonnie Martinez | ECON | Unknown | | + + + + + Care Team Providers + +------+ + | Care Transition Specialist Name | Role | Phone | [...] | | Essential | [place], | [facility] | | | | | hypertension | MD [address] | | | | | Type 2 | [address] | [place] | | | | | diabetes | [place] | [place] | | | | | mellitus | [place], [place] | [address] | | | | | without | [address] | Phone: | | | | | complication | Phone: | [phone] | | | | | , with | [phone] | Fax: | | | | | long-term | Fax: | [phone] | | | | | current use | [phone] | | | | | | of insulin | | | | | | | ([facility]) Chest | | | | | | [...] + + | 05/02/ | Office | [facility] | [place]as [place], | Essential | | 2019 | Visit | CARDIOLOGY [place] | [address] | hypertension | | | | [address] [facility] | [place], | (Primary Dx); Pedal | | | | [address] | [place] [address] | edema; Stage 3 | | | | [place], [place] | [phone] | chronic kidney | | | | [address] | | disease (HCC); | | | | [phone] | | Centrilobular | | | | [...] | | | | | | adult ([facility]) | +--------+---------+ + + + Social History [...] 2-day protocol Lexiscan Cardiolite stress test at [facility]. A 48-hour Holter monitor will also be done to evaluate the symptoms. I saw her 05/20/17, for increasing pedal edema present intermittently for an undetermined time. She was a markedly poor historian. I was able to review records from her hospitalizat ion at [facility] August 04-2012, when she was admitted for [...] darrian turia, urinary urgency, hesitancy. No current group therapist disorders. HEMATOLOGY/ONCOLOGY: No h/o bleeding disorders, DVT, [...] with Proteinuria COPD (chronic obstructive pulmonary disease) ([facility]) Diabetes mellitus type II 1999 Insulin requiring, with Retinopathy, Nephropathy, Neuropathy GERD (gastroesophageal reflux disease) on omeprazole GERD (gastroesophageal reflux disease) H/O cardiac asthma pulmonary edema, acute from severe hypertension and demand ischemia Heart attack ([facility]) 2012 questionable Hepatitis C Hypertension 2009 Hypomagnesemia severe, resolved Localized edema Morbid obesity with BMI of 50.0-59.9, adult ([facility]) Obesity CHEL (obstructive sleep apnea) AHI 22.8 [...] level: Not on file Occupational History 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 Employer: [employer] Social Needs Financial resource strain: [...] file Gets together: Not on file Attends anabaptism service: Not on file Active member of [...] on file Social History Narrative Lives in [place] with her grandchildren. She is from her [...] R RELION 100 UNIT/ML injection nystatin (MYCOSTATIN) 417188 UNIT/GM cream APPLY TOPICALLY AA BID FOR [...] 5/16" 1 ML MISC Respiratory Therapy Supplies [facility] Res Med S9 auto CPAP 9-15 cm H2O. Heater and Humidifi er. All necessary supplies.AHI 20.1. Diagnosis Code(s)327.23. Length of Need lifetime. Gian wall send order to [facility] [place]. 1 each 99 rOPINIRole (REQUIP) 0.25 mg [...] SORIANO | | | | | | [place] [address] | | | | | | [phone] | | | | | | | [...] | | | | | by [employer] Dunlap Read Only, | | | | | | [employer] Janeen ([id number]), | | | | | | social media editor Girish Rivera | | | | | | ([id number]) on 05/03/2019 | | | | | [...]
--- OUTSIDE RECORDS SUMMARY | ~2019-05-31 | XMS | Encounter Summary ---
Demographics + + + | Address | [address] | | | [place] [address] | + + + | Home Phone | | + + + | Preferred Language | Unknown | + + + | Marital Status | Legally | + + + | Mormonism Affiliation | Unknown | + + + | Race | Unknown | + + + | Ethnic Group | Unknown | + + + Author + + + | Author | [facility] | | | and [place] | + + + | Organization | [facility] | | [...] [place] | | | | | [address] | | + + + + + | Vonnie Martinez | ECON | Unknown | | + + + + + Care Team Providers + +------+ + | Care Commodity Supervisor Name | Role | Phone | + +------+ + | Oscar Taylor PA-C | PCP | | + +------+ + Encounter Details +--------+ + + + + | Date | Type | Department | Care Team | Description | +--------+ + + + + | 11/02/ | Orders Only | [facility] | Conversion | | | 2019 | | NEPHROLOGY [place] | Transaction, | | | | | [address] | Provider Unknown | | | | | [address] [place] | | | | | | [address] | (Fax) | | | | | [phone] | | | +--------+ + + + [...] SORIANO | | | | | | [place] [address] | | | | | | [phone] | | | | | | | [...]
--- OUTSIDE RECORDS SUMMARY | ~2019-05-31 | XMS | Encounter Summary ---
Demographics + + + | Address | [address] | | | [place] [address] | + + + | Home Phone | | + + + | Preferred Language | Unknown | + + + | Marital Status | | + + + | Synagogue Affiliation | Unknown | + + + | Race | White | + + + | Ethnic Group | Not or | + + + Author + + + | Author | [facility] | + + + | Organization | [facility] | + + + | Address | Unknown | + + + | Phone | Unavailable | + + + Support + + +---------+ + | Name | Relationship | Address | Phone | + + +---------+ + | Don Watson | ECON | Unknown | | + + +---------+ + Care Team Providers + +------+ + | Care Field Secretary Name | Role | Phone | + +------+ + | Garret Rojo NP | PCP | | + +------+ + Encounter Details +--------+ + + + + | Date | Type | Department | Care Team | Description | +--------+ + + + + | 08/26/ | Abstract | [facility] | Clinic, Surgery | | | 2016 | | [place] [facility] [address] | | | | | | [address] | | | | | | Mailcode: [place] | | | | | | for Health and | | | | | | Healing, [address] | | | | | | [place], [place] | | | | | | [address] | | | | | | [phone] | | | +--------+ + + + [...]
--- OUTSIDE RECORDS SUMMARY | ~2019-05-31 | XMS | Encounter Summary ---
Demographics + + + | Address | [address] | | | [place] [address] | + + + | Home Phone [...] + + + | Author | [facility] | | | and [place] | + + + | Organization | [facility] | | | and [...] [place] | | | | | [address] | | + + + + + | Vonnie Martinez | ECON | Unknown | | + + + + + Care Team Providers + +------+ + | Care Hardboard Coating Machine Operator Name | Role | Phone | + +------+ + | Oscar Taylor PA-C | PCP | | + +------+ + Encounter Details +--------+ + + + + | Date | Type | Department | Care Team | Description | +--------+ + + + + | 03/04/ | Orders Only | [facility] | Jeremiah Mendoza MD | | | 2017 | | NEPHROLOGY [place] | [address] [place] | | | | | [address] [place] | [address] [place], [place] | | | | | [address] [facility] [place] | [address] | | | | | [address] | | | | | | [phone] | | | +--------+ + + + [...] | | | | | [place] [address] | | | | | | [phone] | | | | | | | [...] | | | LAB | | | [place] | | | | | + + [...]
--- OUTSIDE RECORDS SUMMARY | ~2019-05-31 | XMS | Encounter Summary ---
Demographics + + + | Address | [address] | | | [place] [address] | + + + | Home Phone | | + + + | Preferred Language | Unknown | + + + | Marital Status | Legally | + + + | Adventist Affiliation | Unknown | + + + | Race | Unknown | + + + | Ethnic Group | Unknown | + + + Author + + + | Author | [facility] | | | and [place] | + + + | Organization | [facility] | | [...] [place] | | | | | [address] | | + + + + + | Vonnie Martinez | ECON | Unknown | | + + + + + Care Team Providers + +------+ + | Care Booking Clerk Name | Role | Phone | [...] [address] | | | | | [place], | [place], [place] | | | | | [place] [address] | [address] | | | | | [phone] | | | +--------+ + + + [...] SORIANO | | | | | | [place] [address] | | | | | | [phone] | | | | | | | | +--------+---------+ + + + documented as of this encounter Visit Diagnoses Not on filedocumented in this encounter"
--- OUTSIDE RECORDS SUMMARY | ~2019-05-31 | XMS | Encounter Summary ---
Demographics + + + | Address | [address] | | | [place] [address] | + + + | Home Phone | | + + + | Preferred Language | Unknown | + + + | Marital Status | Legally | + + + | Zoroastrianism Affiliation | Unknown | + + + | Race | Unknown | + + + | Ethnic Group | Unknown | + + + Author + + + | Author | [facility] | | | and [place] | + + + | Organization | [facility] | | | and [...] [place] | | | | | [address] | | + + + + + | Vonnie Martinez | ECON | Unknown | | + + + + + Care Team Providers + +------+ + | Care Automotive Design Drafter Name | Role | Phone | + +------+ + | Oscar Taylor PA-C | PCP | | + +------+ + Encounter Details +--------+ + + + + | Date | Type | Department | Care Team | Description | +--------+ + + + + | 04/26/ | Orders Only | [facility] | Phan Jones, | | | 2017 | | NEPRHOLOGY [place] | NAVAL SCIENCE TEACHER [address] | | | | | [address] | [place] | | | | | [address] [place], [place] | [facility] | | | | | [address] | [address] | | | | | [phone] | [phone] | | | | | | | [...] [place]IANO | | | | | | [place] [address] | | | | | | [phone] | | | | | | | [...]
--- OUTSIDE RECORDS SUMMARY | ~2019-05-31 | XMS | Encounter Summary ---
Demographics + + + | Address | [address] | | | [place] [address] | + + + | Home Phone [...] [place] | | | | | [address] | | + + + + + | Vonnie Martinez | ECON | Unknown | | + + + + + Care Team Providers + +------+ + | Care Material Distributor Name | Role | Phone | + [...] + + | 03/02/ | Refill | [facility] | Phan Jones, | Medication Refill | | 2019 | | NEPHROLOGY [place] | [address] | | | | | [address] [facility] | [place] | | | | | [place] | [place] | | | | | [address] | [address] | | | | | [phone] | [phone] | | | | | | | [...] | | | | | [place] [address] | | | | | | [phone] | | | | | | | | +--------+---------+ + + + documented as of this encounter Visit Diagnoses Not on filedocumented in this encounter"
--- OUTSIDE RECORDS SUMMARY | ~2019-05-31 | XMS | Encounter Summary ---
Demographics + + + | Address | [address] | | | [place] [address] | + + + | Home Phone | | + + + | Preferred Language | Unknown | + + + | Marital Status | Legally | + + + | Yazidism Affiliation | Unknown | + + + [...] [place] | | | | | [address] | | + + + + + | Vonnie Martinez | ECON | Unknown | | + + + + + Care Team Providers + +------+ + | Care Offal Separator Name | Role | Phone | + [...] + + | 03/13/ | Refill | [facility] | Sabas Gaxiola, | Medication Refill | | 2019 | | CARDIOLOGY [place] | [address] | | | | | [address] | [place] [facility], | | | | | [place], [place] | [place] [address] | | | | | [address] | [phone] | | | | | [phone] | | | +--------+--------+ + + + [...] | | | | | [place] [address] | | | | | | [phone] | | | | | | | | +--------+---------+ + + + documented as of this encounter Visit Diagnoses Not on filedocumented in this encounter"
--- OUTSIDE RECORDS SUMMARY | ~2019-05-31 | XMS | Encounter Summary ---
Demographics + + + | Address | [address] | | | [place] [address] | + + + | Home Phone [...] + + + | Author | [facility] | | | and [place] | + + + | Organization | [facility] | | [...] [place] | | | | | [address] | | + + + + + | Vonnie Martinez | ECON | Unknown | | + + + + + Care Team Providers + +------+ + | Care Drum Barker Operator Name | Role | Phone | + +------+ + | Oscar Taylor PA-C | PCP | | + +------+ + Encounter Details +--------+ + + + + | Date | Type | Department | Care Team | Description | +--------+ + + + + | 11/02/ | Orders Only | [facility] | Phan Jones, | | | 2018 | | NEPHROLOGY [facility] | SPORTS MARKETING SPECIALIST [address] | | | | | [address] [place] | [address] | | | | | [address] [facility], [place] | [place], [place] | | | | | [address] | [address] | | | | | [phone] | [phone] | | | | | | | [...] | | | | | [place] [address] | | | | | | [phone] | | | | | | | [...] | | | LAB | | | [place] | | | | | + +---------+ [...]
--- OUTSIDE RECORDS SUMMARY | ~2019-05-31 | XMS | Encounter Summary ---
Demographics + + + | Address | [address] | | | [place] [address] | + + + | Home Phone [...] Author + + + | Author | [facility] | | | and [place] | + + + | Organization | [facility] | | | [...] [place] | | | | | [address] | | + + + + + | Vonnie Martinez | ECON | Unknown | | + + + + + Care Team Providers + +------+ + | Care Open Cut Examiner Name | Role | Phone | + +------+ + | Oscar Taylor PA-C | PCP | | + +------+ + Encounter Details +--------+ + + + + | Date | Type | Department | Care Team | Description | +--------+ + + + + | 01/12/ | Orders Only | [facility] | Provider, | Chronic kidney | | 2019 | | SYSTEM GENERIC OP | MD [address] | disease, stage III | | | | CONVERSION [address] | [address] | (moderate) (HCC); | | | | [address] [place], [place] | [place] [address] | Essential (primary) | | | | [address] | | hypertension; | | | | [phone] | | Generalized edema; | | | [...] SORIANO | | | | | | [place] [address] | | | | | | [phone] | | | | | | | [...]
--- OUTSIDE RECORDS SUMMARY | 2019-05-31 12:36 | XMS ---
PreManage Notification: MODESTA CRAWFORD Security Steam Service Inspector Events No recent Security Events currently on file CRITERIA MET - [facility] - Has Care Guidelines - PDMP - [facility] - 2 Visits in 30 Days CARE PROVIDERS GARRET ROJO Nurse Practitioner: Family 05/22/2019-Current PHONE: Unknown NORMA TILLMAN Primary Care 01/20/2016-Current PHONE: Unknown Addi has no Care Guidelines for this patient. Care History Medical/Surgical 2019 [facility] - PATIENT HAS A FINISH OFF OPERATOR-DR LULA COLLIER IN [place], [place]. PHONE # . - Patient is currently established with [facility]. If patient is seen in the ED during business hours. Please contact CHWs at [facility]. Care Recommendation: If this patient has had 5 or more Emergency Department visits in the last 12 months.\T\nbsp; Patient will require education on the scope and purpose of the ED as an acute care provider not a Primary Care Provider and should not be utilized for chronic conditions.\T\nbsp; These are guidelines and the provider should exercise clinical judgment when providing care. 2019 [facility] Patient has appt. with Dr. Tadeo on 05/23/2019 and follow up appt. with Garret Rojo on 05/31/2019 2019 [facility] - Patient is currently established with [facility]. If patient is seen in the ED during business hours. Please contact CHWs at [facility]. Care Recommendation: If this patient has had 5 or more Emergency Department visits in the last 12 months.\T\nbsp; Patient will require education on the scope and purpose of the ED as an acute care provider not a Primary Care Provider and should not be utilized for chronic conditions.\T\nbsp; These are guidelines and the provider should exercise clinical judgment when providing care. E.D. VISIT COUNT (12 MO.) 2 [facility]. TOTAL 2 NOTE: Visits indicate total known visits. ED/UCC VISIT TRACKING (12 MO.) 05/31/2019 12:34 [facility] [place] TYPE: Emergency COMPLAINT: - BLOOD PRESSURE PROBLEM 05/20/2019 14:01 [facility] [place] TYPE: Emergency COMPLAINT: - LOC, FALL DIAGNOSES: - 1 Type 2 diabetes mellitus without complications - Personal history of nicotine dependence - Old myocardial infarction - Syncope and collapse - Chronic obstructive pulmonary disease, unspecified - tank terminal gauger (current) use of insulin - Other exterminator helper (current) drug therapy - Allergy status to narcotic agent status - tank terminal gauger (current) use of inhaled steroids - Essential (primary) hypertension - Other specified abnormal findings of blood chemistry - Allergy status to oth drug/meds/biol subst status INPATIENT VISIT TRACKING (12 MO.) No inpatient visits to display in this time frame [id number]
[2019-05-31] MEDS ORDERED: LOMOTIL TABLET1 EACH PO (14:45)
== END 2019-05-31 14:59 | disposition home or self-care (01) ==
LOC: ED 12:33
DX: S22.41XA Multiple fractures of ribs, right side, initial encounter for closed fracture (principal); R19.7 Diarrhea, unspecified; N18.9 Chronic kidney disease, unspecified; R55 Syncope and collapse; W18.30XA Fall on same level, unspecified, initial encounter; I10 Essential (primary) hypertension; E11.9 Type 2 diabetes mellitus without complications; J44.9 Chronic obstructive pulmonary disease, unspecified; Z88.5 Allergy status to narcotic agent; Z88.8 Allergy status to other drugs, medicaments and biological substances; Z79.899 Other long term (current) drug therapy; Z79.4 Long term (current) use of insulin
CPT/HCPCS: 71101; 80053; 85025; 96360; 99284-25; J7030

== ENCOUNTER 2020-07-09 07:20 | Emergency (ER) | payer MEDICARE, OTHER ==
[~2020-07-09] VITALS: Ht 162.6 cm; Wt 137.0 kg
[~2020-07-09 07:20] MED LIST changes: +ADVAIR 250-501 EACH INH; +ALLOPURINOL100 MG PO; +ATORVASTATIN CA40 MG PO; +CARVEDILOL6.25 MG PO; -COREG3.125 MG; +COREG3.125 MG PO; +FUROSEMIDE40 MG PO; +IPRAT-ALBUT 0.5-3 ML INH; +K-TAB ER20 MEQ PO; +LEVOTHYROXINE50 MCG PO; +LOMOTIL TABLET1 EACH PO; +METOLAZONE2.5 MG PO; +NOVOLOG FL100 UNIT/1 SUB-Q; +OMEPRAZOLE40 MG PO; +ROPINIROLE HC0.25 MG PO; +TOUJEO SOL300 UNIT/1 SUB-Q; +TRAZODONE HCL100 MG PO
--- OUTSIDE RECORDS SUMMARY | 2020-07-09 07:22 | XMS ---
PreManage Notification: MODESTA CRAWFORD Security Seo Professional Events No recent Security Events currently on file CRITERIA MET - [facility] - Has Care Guidelines CARE PROVIDERS GARRET GROSSMAN Nurse Practitioner: Family 05/22/2019-Current PHONE: [phone] Addi has no Care Guidelines for this patient. Care History Medical/Surgical 06/01/2019 [facility] Patient has follow up with Garret Grossman on 07/19/2019 2019 [facility] - PATIENT HAS A UTILITY MECHANIC-DR LULA COLLIER IN [place], [place]. PHONE # . - Patient is currently established with [facility]. If patient is seen in the ED during business hours. Please contact [facility] at [facility]. Care Recommendation: If this patient has had 5 or more Emergency Department visits in the last 12 months.\T\nbsp; Patient will require education on the scope and purpose of the ED as an acute care provider not a Primary Care Provider and should not be utilized for chronic conditions.\T\nbsp; These are guidelines and the provider should exercise clinical judgment when providing care. 2019 [facility] Patient has appt. with Dr. Tadeo on 05/23/2019 and follow up appt. with Garret Grossman on 05/31/2019 E.D. VISIT COUNT (12 MO.) [address] [facility] TOTAL 1 NOTE: Visits indicate total known visits. ED/UCC VISIT TRACKING (12 MO.) 07/09/2020 07:21 [place] TYPE: Emergency COMPLAINT: - DIFFICULTY BREATHING INPATIENT VISIT TRACKING (12 MO.) No inpatient visits to display in this time frame [email or web address]
[2020-07-09] MEDS ORDERED: PREDNISONE20 MG PO (09:46)
--- NOTE | 2020-07-09 13:05 | EKG ---
[facility] [address] [facility] [place] [address] Signed Normal sinus rhythm Low voltage QRS Nonspecific ST and T wave abnormality Abnormal ECG When compared with ECG of 05-JUN-2019 12:30, T wave inversion less evident in Anterior leads Nonspecific T wave abnormality, worse in Lateral leads Confirmed by JEROD LAN MD ([id number]) on 07/09/2020 1:05:02 PM Electronically Signed By: JEROD LAN MD 07/09/20 1305 PATIENT NAME: MODESTA CRAWFORD Electrocardiogram DATE OF : 53 PHYSICIAN: JEROD LAN MD REPORT #: [id number] REPORT IS CONFIDENTIAL AND NOT TO BE RELEASED WITHOUT AUTHORIZATION
== END 2020-07-09 10:39 | disposition home or self-care (01) ==
LOC: ED 07:20
DX: J44.1 Chronic obstructive pulmonary disease with (acute) exacerbation (principal); N28.9 Disorder of kidney and ureter, unspecified; I11.0 Hypertensive heart disease with heart failure; I50.9 Heart failure, unspecified; E11.9 Type 2 diabetes mellitus without complications; Z20.822 Contact with and (suspected) exposure to COVID-19; Z87.891 Personal history of nicotine dependence; Z88.8 Allergy status to other drugs, medicaments and biological substances; Z88.5 Allergy status to narcotic agent; Z79.899 Other long term (current) drug therapy; Z79.4 Long term (current) use of insulin
CPT/HCPCS: 71045; 80053; 83605; 83880; 84484; 85025; 93005; 93010; 94640; 99285-25; C9803; U0003

== ENCOUNTER 2020-08-05 12:53 | Emergency (ER) | payer BC, MEDICARE, OTHER ==
[~2020-08-05] VITALS: Ht 162.6 cm; Wt 137.0 kg
--- OUTSIDE RECORDS SUMMARY | 2020-08-05 12:56 | XMS ---
PreManage Notification: MODESTA CRAWFORD Security Pantograph Engraver Events No recent Security Events currently on file CRITERIA MET - - Has Care Guidelines - - 2 Visits in 30 Days CARE PROVIDERS GARRET GROSSMAN Nurse Practitioner: Family 05/22/2019-Current PHONE: [phone] MINDA CRESPO [facility] 07/10/2020-Current PHONE: [phone] Addi has no Care Guidelines for this patient. Care History Medical/Surgical 06/01/2019 [facility] Patient has follow up with Garret Grossman on 07/19/2019 2019 [facility] - PATIENT HAS A MANAGER OF CASE-DR LULA COLLIER IN [place], [place]. PHONE # . - Patient is currently established with [facility]. If patient is seen in the ED during business hours. Please contact CHWs at [facility]. Care Recommendation: If this patient has had 5 or more Emergency Department visits in the last 12 months.\T\nbsp; Patient will require education on the scope and purpose of the ED as an acute care provider not a Primary Care Provider and should not be utilized for chronic conditions.\T\nbsp; These are guidelines and the provider should exercise clinical judgment when providing care. 2019 [facility] Patient has appt. with Dr. Tadeo on 05/23/2019 and follow up appt. with Garret Grossman on 05/31/2019 [facility] MO[facility] NOTE: Visits indicate total known visits. ED/UCC VISIT TRACKING (12 MO.) 08/05/2020 12:54 [facility] [place] TYPE: Emergency COMPLAINT: - SOB, LEG SWELLING 07/09/2020 07:[address] [facility] [place] TYPE: Emergency COMPLAINT: - DIFFICULTY BREATHING DIAGNOSES: - Type 2 diabetes mellitus without complications - residential (current) use of insulin - Allergy status to other drugs, medicaments and biological substances - Chronic obstructive pulmonary disease with (acute) exacerbation - Heart failure, unspecified - Personal history of nicotine dependence - Hypertensive heart disease with heart failure - Dyspnea, unspecified - Other director long term care (current) drug therapy - Allergy status to narcotic agent - Disorder of kidney and ureter, unspecified INPATIENT VISIT TRACKING (12 MO.) No inpatient visits to display in this time frame [email or web address]
[2020-08-05] MEDS ORDERED: TIZANIDINE HCL4 MG PO (13:22)
--- NOTE | 2020-08-05 15:19 | EKG ---
[facility] [address] [place] [address] Signed Normal sinus rhythm Low voltage QRS Borderline ECG When compared with ECG of 09-JUL-2020 07:33, T wave inversion no longer evident in Anterior leads Confirmed by JEROD LAN MD ([id number]) on 08/05/2020 3:18:58 PM Electronically Signed By: JEROD LAN MD 08/05/20 1519 PATIENT NAME: MODESTA CRAWFORD Electrocardiogram DATE OF : 53 PHYSICIAN: JEROD LAN MD REPORT #: [id number] REPORT IS CONFIDENTIAL AND NOT TO BE RELEASED WITHOUT AUTHORIZATION
[2020-08-05] MEDS ORDERED: CEPHALEXIN500 MG PO (16:12)
== END 2020-08-05 16:29 | disposition home or self-care (01) ==
LOC: ED 12:53
DX: L03.115 Cellulitis of right lower limb (principal); D64.9 Anemia, unspecified; N18.9 Chronic kidney disease, unspecified; E66.01 Morbid (severe) obesity due to excess calories; Z20.822 Contact with and (suspected) exposure to COVID-19; I10 Essential (primary) hypertension; J45.909 Unspecified asthma, uncomplicated; E11.9 Type 2 diabetes mellitus without complications; J44.9 Chronic obstructive pulmonary disease, unspecified; Z87.891 Personal history of nicotine dependence; Z88.8 Allergy status to other drugs, medicaments and biological substances; Z88.5 Allergy status to narcotic agent; Z79.899 Other long term (current) drug therapy; Z79.52 Long term (current) use of systemic steroids; Z79.4 Long term (current) use of insulin
CPT/HCPCS: 71045; 80053; 83735; 83880; 84484; 85025; 93005; 93010; 99285-25; C9803; U0003

== ENCOUNTER 2020-08-26 09:13 | Inpatient (IN) | payer BC, MEDICARE, OTHER ==
[~2020-08-26] VITALS: Ht 162.6 cm; Wt 159.7 kg
[~2020-08-26 09:13] MED LIST changes: -ALBUTEROL2.5 MG/3 M; +ALBUTEROL2.5 MG/3 M NEB; +CEPHALEXIN500 MG PO; +TIZANIDINE HCL4 MG PO
--- OUTSIDE RECORDS SUMMARY | 2020-08-26 09:18 | XMS ---
PreManage Notification: MODESTA CRAWFORD Security Educational Sign Language Interpreter Events No recent Security Events currently on file CRITERIA MET - Group Notification - [facility] - Has Care Guidelines - [facility] - 2 Visits in 30 Days CARE PROVIDERS GARRET GROSSMAN Nurse Practitioner: Family 05/22/2019-Current PHONE: [phone] MINDA CRESPO [facility] 07/10/2020-Current PHONE: [phone] Addi has no Care Guidelines for this patient. Care History Medical/Surgical 08/07/2020 [facility] Increased swelling of lower legs and shortness of breath and anemia. Patient stated there was\T\nbsp; a 40 pond weight gain in a month. 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 PHONE # . - Patient is currently established with [facility]. If patient is seen in the ED during business hours. Please contact CHWs at [facility]. Care Recommendation: If this patient has had [...] providing care. E.D. VISIT COUNT (12 MO.) 1 [facility] 3 LOUISA Elizalde TOTAL 4 NOTE: Visits indicate total known visits. ED/C VISIT TRACKING (12 MO.) 08/26/2020 09:14 [facility] [place] TYPE: Emergency COMPLAINT: - BLOODY STOOL 08/12/2020 16:04 [facility] TYPE: Emergency DIAGNOSES: - Anemia, unspecified - Leg Swelling - Acute kidney failure, unspecified - Shortness of breath 08/05/2020 12:54 [facility] [place] TYPE: Emergency COMPLAINT: - SOB, LEG SWELLING DIAGNOSES: - Dyspnea, unspecified - Other half-way (current) drug therapy - Personal history of nicotine dependence - Cellulitis of right lower limb - Anemia, unspecified - Chronic kidney disease, unspecified - penitentiary (current) use of insulin - Allergy status to narcotic agent - Chronic obstructive pulmonary disease, unspecified - Type 2 diabetes mellitus without complications - Unspecified asthma, uncomplicated - Allergy status to other drugs, medicaments and biological substances - Morbid (severe) obesity due to excess calories - flakeboard line tender (current) use of systemic steroids - Essential (primary) hypertension 07/09/2020 07:21 [facility] TYPE: Emergency COMPLAINT: - DIFFICULTY BREATHING DIAGNOSES: - Type 2 diabetes mellitus without complications - flakeboard line tender (current) use of insulin - Allergy status to other drugs, medicaments and biological substances - Chronic obstructive pulmonary disease with (acute) exacerbation - Heart failure, unspecified - Personal history of nicotine dependence - Hypertensive heart disease with heart failure - Dyspnea, unspecified - Other half-way (current) drug therapy - Allergy status to narcotic agent - Disorder of kidney and ureter, unspecified INPATIENT VISIT TRACKING (12 MO.) 08/12/2020 16:04 [facility] TYPE: Internal Medicine DIAGNOSES: - Essential (primary) hypertension - Acute posthemorrhagic anemia - Dyspnea, unspecified - Morbid (severe) obesity due to excess calories - Shortness of breath - Acute kidney failure, unspecified - Iron deficiency anemia secondary to blood loss (chronic) - Generalized edema - Anemia, unspecified - Other half-way (current) drug therapy - Unspecified ovarian cyst, unspecified side - Other fecal abnormalities - Localized edema - Fluid overload, unspecified - Alkalosis - Polyp of stomach and duodenum - Chronic kidney disease, stage 3b - Body mass index [BMI] 50.0-59.9, adult - Polyp of colon - Hypokalemia [email or web address]
[2020-08-26] MEDS ORDERED: AMOXICILLIN500 MG PO (09:47)
[2020-08-26] MEDS ORDERED: BASAGLAR K100 UNIT/1 SUB-Q (09:48)
[2020-08-26] MEDS ORDERED: CLARITHROMYCIN500 MG PO (09:49)
[2020-08-26] MEDS ORDERED: MAGNESIUM400 MG PO (09:50)
[2020-08-26] MEDS ORDERED: PANTOPRAZOLE SO40 MG PO (09:50)
[2020-08-26] MEDS ORDERED: TORSEMIDE20 MG PO (09:51)
--- NOTE | 2020-08-26 13:30 | NUR ---
PATIENT ADMITTED TO CCU VIA W/C FROM ER FOR CHF EXACERBATION. PATIENT IS MORE COMFORTABLE SITTING UP, AND IN FACT BECOMES QUITE SHORT OF BREATH IF SHE LAYS DOWN FOR TOO LONG. PT WAS D/C FROM [facility] ON 08/22 AFTER HAVING A GI BLEED AND BEING ON A LASIX GTT. PT REPORTS THAT SHE LOST 20+ LBS WHILE BEING THERE, BUT SINCE BEING D/C, HER LEGS HAVE ONLY WORSENED AND CONTINUE TO SWELL. PT REPORTS THAT HER SCALE AT HOME ISN'T WORKING, AND ONLY READS "E." PATIENT THINKS THIS MAY BE DUE TO EXCEEDING THE MAX ON IT. STANDING SCALE IN ER WAS 367 LBs. PATIENT STARTED ON A BUMEX GTT HERE AT 0.5 MG/HR = 2 ML/HR, AFTER BEING GIVEN A 0.5 MG IV BOLUS. POOR IV ACCESS CURRENTLY WITH A 20 G IN RIGHT UPPER CHEST AREA. PT REPORTS DIFFICULTY AT [facility] AND HAVING TO HAVE AN US GUIDED IV THERE. PATIENT IN CCU CHAIR AND COMFORTABLE THERE. LUNCH ORDERED FOR PATIENT. EDUCATION PROVIDED TO PATIENT REGARDING HER HEART FAILURE. PATIENT REPORTS, "I DONT' HAVE ANYTHING WRONG WITH MY HEART, MY HEART HAS ALWAYS BEEN GOOD." DISCUSSED THIS WITH PATIENT AND EXPLAINED THAT HER SWELLING IN HER LEGS IS LARGELY CONTRIBUTED TO CHF. PT ASTONISHED THAT SHE HAD ANYTHING WRONG WIHT HER HEART. WAITING ON ECHO REPORT FROM [facility]. IV POTASSIUM AND MORE ORAL POTASSIUM TO BE GIVEN. ANOTHER IV SITE TO BE SOUGHT AFTER. PT UP TO BATHROOM TO VOID 600. PT HAS A "CYST" ON THE INSIDE OF HER RIGHT INNER THIGH THAT IS BLEEDING SOME. PT REPORTS "OH GOOD, IT MUST HAVE BURST, AND NOT IT WILL STOP HURTING MUCH." VISUALIZED THIS, AND IT APPEARS TO BE A RAISED OVAL LIKE AREA AND DOES HAVE SOME SKIN BREAKDOWN. WILL CONTINUE TO MONITOR. PLAN OF CARE DSICUSSED WITH PATIENT.
--- NOTE | 2020-08-26 15:17 | NUR ---
NEW IV PLACED IN RIGHT INNER FOREARM. PT HAS BEEN LAYIGN IN BED FOR A WHILE AND STARTING TO COUGH, BRONCHOSPASM SOUNDING, AND HAVING TO SIT UP. PT HELPED TO EDGE OF BED. WHEEZES HEARD EXP. NEB TX ON EMAR AND RT CALLED FOR THIS.
--- NOTE | 2020-08-26 15:52 | NUR ---
PATIENT BACK IN CHAIR AFTER SITTING ON EDGE OF BED AND STATES SHE IS BREATHING MUCH BETTER AFTER THE NEB TX. PT'S DON AT BEDSIDE. IV SITE IN RIGHT ARM INFUSING IV POTASSIUM AND IS BURNING PATIENT SOME. INFUSION RATE SLOWED DOWN TO 50 ML/HR. PT'S LEAVES AND NEEDS ASSISTANCE BY BEING PUSHED IN WHEELCHAIR. BUMEX GTT CONTINUES TO 2 ML/HR. SP02 IS 95% ON ROOM AIR. PT HAS HER LEGS ELEVATED IN CHAIR. CALL LIGHT WITHIN REACH.
--- NOTE | 2020-08-26 17:15 | NUR ---
Certified Heart Failure Nurse Notes: Diagnosis: HFpEF with multiple comorbidities. Recent DC from [facility]. PCP: Dr. Dunham Date of echocardiogram - [facility] records show Echo completed in 2017. EF 65% and suboptimal image quality. Admit Wt.: 366lb Admit BNP: 222 Social support system: Lives with spouse Don, son, and daughter. Weight monitoring: Scale present in home. But she states she is getting an error message. Probalby due to weight limitation of scale. Education given on how to weigh QAM/ when to notify PCP Symptom management: Addressed monitoring and reporting changes in weight or symptoms Diet: Usual meals are cooked by her son. Daughter in law does the shopping. Importance of lower sodium diet in heart failure explained. Emphasized that general heart healthy diet is good for all age groups. Usual physical activity: Not discussed at this initial visit. Patient had participated in [facility] Pulmonary Rehabilitation in the past. Medication routine: Uses 7 day pill boxes. Denies problems with missed medications. Is able to name diuretics.Has been counseled on avoiding use of NSAIDs. Advanced directive: Not discussed at this initial visit Recommendations prior to discharge: Document ambulation oxygen saturations prior to discharge Absence of orthostatic hypotension. Discharge weight less than admit weight. (as per [facility] Heart Failure DC Bundle) Barriers to self-care include: Knowledge deficit of heart failure and long-term management needs. Motivations to self-care include: Living to be there for grandchildren. Follow-up plans: Patient agrees to receive follow up call from this service. Patient does not currently qualify for cardiac rehabilitation but would be welcome for complimentary outpatient heart failure education. Teaching materials given today: Daily weight and symptom monitoring log, , [facility] contact information Low Sodium Shopping list. Medline Digital scale (440lb limit) to take home.
--- NOTE | 2020-08-26 17:15 | NUR ---
PATIENT GIVEN THE K-PAD WARMER FOR HER BACK WHICH SHE SPECIFICALLY REQUESTED. PT ALSO GIVEN PRN NORCO FOR HER CHRONIC BACK PAIN. PT STILL STATES HER RIGHT FOREARM IV IS STILL BOTHERING HER SOME WITH THAT POTASSIUM INFUSION. WILL LOOK WITH U/S TO SEE IF ANY DEEPER VEINS CAN BE IDENTIFIED.
--- NOTE | 2020-08-26 17:18 | NUR ---
Update from RN, pt recent discharge from [facility]. Pt on Bumex gtt for edema.Will see tomorrow for assessment.
--- NOTE | 2020-08-26 18:50 | NUR ---
ATTEMPTED MIDLINE IN PATIENT'S LEFT UPPER ARM CEPHALIC VEIN WITHOUT SUCCESS. PATIENT TOLERATED WELL. DR. MARTÍNEZ AWARE. IV IN RIGHT FOREARM STILL INFUSING, IS SORE, BUT STILL FLUSHES WELL AND EVEN PULLS BLOOD BACK. BMP WILL BE DRAWN ONCE POTASSIUM IS FINISHED. PT REMAINS ON BUMEX AT 2 ML/HR = 0.5 MG/HR.
--- NOTE | 2020-08-26 19:25 | NUR ---
RECEIVED REPORT FROM [facility]. pt RESTING IN BED. NO REQUESTS AT THIS TIME. WHITEBOARD UPDATED. CALL LIGHT WITHIN REACH.
--- NOTE | 2020-08-26 19:43 | NUR ---
CALL LIGHT ON. pt SITTING IN CHAIR. REPORTED THAT "CYST" WAS LEAKING. PROVIDED A NEW A GOWN. UNTANGLED CORDS. EMPTIED URINE. REQUESTED THAT pt CALL BEFORE MOVING BACK TO THE BED. pt VERBALIZED UNDERSTANDING. CALL LIGHT WITHIN REACH.
--- NOTE | 2020-08-26 20:30 | NUR ---
CALLED MD WITH pt REQUEST TO HAVE PAIN MEDICATION Q4. NEW ORDERS ENTERED.
--- NOTE | 2020-08-26 21:00 | NUR ---
pt REPORTED THAT SHE HAS A PAIN MANAGEMENT CONTRACT AND THAT IS 5 TABLETS OF NORCO (10/325). SHE TAKES IT Q4H DURING THE DAY.
--- NOTE | 2020-08-26 21:10 | NUR ---
IN TO DO ASSESSMENT. pt SITTING ON SIDE OF BED. DISCUSSED IMPORTANCE OF CALLING TO HELP WITH CABLES. pt VERBALIZED UNDERSTANDING. SCDS NOT PLACED AT THIS TIME pt IS GETTING UP TO THE BSC FREQUENTLY AND IT WOULD INCREASE FALL RISK. GTT INFUSING PER ORDERS. VISUALLIZED "CYST" ON RIGHT INNER THIGH. RED AND INDURATED, SCANT AMOUNT OF SS DRAINAGE NOTED. WHEEZING HEARD IN UPPER AIRWAY, DIM IN THE BASES. pt REPORTED FEELING BLOATED, EDEMA NOTED ON ABD. MEDICATIONS GIVEN (SEE MAR). PAIN 7/10 PRN GIVEN. ICE PROVIDED, DISCUSSED FLUID RESTRICTION. NO FURTHER REQUESTS AT THIS TIME. CALL LIGHT WITHIN REACH.
--- NOTE | 2020-08-26 21:48 | NUR ---
IN TO GIVE MEDICATIONS. pt REPORTED BEING UNCOMFORTABLE IN THE BED. MOVED TO CHAIR. CALL LIGHT WITHIN REACH. MEDICATIONS GIVEN (SEE MAR).
--- NOTE | 2020-08-26 22:31 | NUR ---
pt DESAT TO 87% WHILE MOVING AROUND. REPORTED JUST HAVING GOTTEN UP TO BSC. URINE EMPTIED. ASSISTED TO GET SETTLED. O2 SAT 92% ON ROOM AIR. HOME CPAP AT CHAIR SIDE. CALL LIGHT WITHIN REACH.
--- NOTE | 2020-08-26 23:53 | NUR ---
IV PUMP BEEPING, NEW BUMEX GTT MIXED AND STARTED PER ORDERS. NO REQUESTS AT THIS TIME. CALL LIGHT WITHIN REACH. pt RESTING IN BED ON HOME CPAP.
--- NOTE | 2020-08-27 01:05 | NUR ---
IN TO GIVE MEDICATION. pt RESTING IN BED ON CPAP. NO REQUESTS AT THIS TIME. MEDICATION GIVEN (SEE MAR). ASSESSMENT DONE. NO MAJOR CHANGES FROM PRIOR ASSESSMENT. CALL LIGHT AND POSESSIONS WITHIN REACH.
--- NOTE | 2020-08-27 03:25 | NUR ---
CALL LIGHT ON. pt UP TO CHAIR. SBA. PROVIDED ICE. NO FURTHER REQUESTS AT THIS TIME. CALL LIGHT WITHIN REACH.
--- NOTE | 2020-08-27 05:13 | NUR ---
pt UP TO BSC, INDEPENDENT THEN BACK TO SITTING ON THE SIDE OF THE BED. NEW IV STARTED BY YEISON CARREON. LABS DRAWN. ASSESSMENT DONE. LUNG SOUNDS DIM. pt REPORTED THE SAME PAIN IN HER BODY RATED 7/10. PRN GIVEN (SEE MAR). CALL LIGHT WITHIN REACH.
--- NOTE | 2020-08-27 06:04 | NUR ---
IN TO GIVE MEDICATIONS. pt MOVED FROM BED TO CHAIR. NO FURTHER REQUESTS AT THIS TIME. CALL LIGHT WITHIN REACH.
--- NOTE | 2020-08-27 07:30 | NUR ---
THIS RN RECEIVED REPORT FROM ANA LUISA LATHAM. PT UP TO CHAIR THIS AMMary Jo OLIVER FROM RT IN ROOM TO GIVE PT HER INHALER
--- NOTE | 2020-08-27 07:35 | NUR ---
Spoke with Rebeca and she states she lives in 1 story house with her spouse, son, and daughter. There is a ramp into the home. Family as- sist with epic ambulatory specialists, cooking, shopping, cleaning. Pt denies financial issues, but has had problems in the past. She is aware of [employer] and foodbanks. She no longer uses. Pt states she has every- thing she needs at home to discharge. She plans on dc to home when Dr is willing to discharge her. She shows me her ankles which remain edematous. She states she understands her diet and how to care for herself at home.
--- NOTE | 2020-08-27 07:45 | NUR ---
THIS RN IN TO CHECK ON PT. PT UP TO CHAIR THIS AM AND STATES THAT SHE IS DOING WELL AND IS IN NO NEED FOR ANYTHIG THIS AM
--- NOTE | 2020-08-27 08:15 | NUR ---
THIS RN IN PTS ROOM TO GET PTS BLOOD SUGAR. THIS RN HAD ASSISTED PT TO THE RESTROOM AND SET UP A CAHIR IN THE RESTROOM SO PT COULD BRUSH HER TEETH THIS AM. PTS BLOOD SUGAR 161 THIS AM AND PT TO GET 3UNITS
--- NOTE | 2020-08-27 09:30 | NUR ---
THIS RN IN PTS ROOM TO GIVE PT MEDS. PT STATES THAT HER PAIN IS 7.5/10 AND THE PAIN IS IN HER LOWER BACK. PT HAS NO OTHER COMPLAINTS AT THIS TIME. PT STATES THAT HER BREATHING HAS PROGRESSIVLY GOTTEN BETTER SINCE SHE HAS BEEN HERE IN THE HOSPITAL.
--- NOTE | 2020-08-27 10:18 | NUR ---
buffer operator assisted pt to bathroom. pt had bowel movement and urinated. buffer operator clean pt. after and assisted to bed. no other needs at this time.
[2020-08-27] MEDS ORDERED: BENZONATATE100 MG PO (10:21)
[2020-08-27] MEDS ORDERED: METAMUCIL FIBE3.4 GM PO (10:28)
--- NOTE | 2020-08-27 10:30 | NUR ---
THIS RN TO CHECK ON PT. PT APPEARS TO BE RESTING AT THIS TIME COMFORTABLY IN BED WITH RESPRIATIONS NOTED AND CALL LIGHT WITHIN REACH
[2020-08-27] MEDS ORDERED: VENTOLIN HFA18 GM INH (10:32)
[2020-08-27] MEDS ORDERED: OZEMPIC1 MG/0.75 SUB-Q (11:22)
--- NOTE | 2020-08-27 11:23 | NUR ---
MED REC COMPLETE
--- NOTE | 2020-08-27 12:00 | NUR ---
THIS RN IN PTS ROOM TO DO PTS BLOOD SUGAR CHECK. PT SITTING IN CHAIR AND IS CHATING WITH HER . PT HAS NO COMPLAINTS TO NOTE AT THIS TIME.
--- NOTE | 2020-08-27 12:45 | NUR ---
THIS RN IN PTS ROOM TO DO PTS ASSESSMENT. PT STATES THAT SHE NEEDS TO USE THE RESTROOM. THIS RN SBA PT TO THE BATHROOM. PT STEADY ON HER FEET TO RESTROOM, PT DID REQUIRE HELP WITH WIPING, PT STATES SHE HAS BETTER GRAB BARS AT HOME. THIS RN FUSHED ALL IV'S PTS LEFT WRIST IV LEAKING AND THEN BEGAN TO BLEED, THIS RN DC'D THIS IV, PT STATED UNDERSTANDING. PT HAD A SMALL BM AND VOIDED QUANITY SUFFIENT. PT STILL ON BUMEX DRIP AT THIS TIME AND IS TOLERATING WELL.
--- NOTE | 2020-08-27 12:53 | NUR ---
v/s and I&Os done , fresh water and ice chips, roompicked up linens changed. no other needs at this time. call light with in reach
--- NOTE | 2020-08-27 14:45 | NUR ---
mails supervisor gave pt. bed bath no other needs
--- NOTE | 2020-08-27 15:00 | NUR ---
THIS RN IN PTS ROOM TO GIVE PT HER SCHEDULED MAG PO MED. PT STATES THAT HER PAIN IS 8/10. THIS RN PROVIDED PT WITH 1 NORCO TAB PER REQUEST. PT HAS NO OTHER COMPLAINTS AT THIS TIME
--- NOTE | 2020-08-27 19:30 | NUR ---
RECEIVED REPORT FROM YEISON HAMPTON. pt RESTING IN BED. CALL LIGHT WITHIN REACH.
--- NOTE | 2020-08-27 21:15 | NUR ---
IN TO DO ASSESSMENT AND MEDICATIONS. pt REQUESTED TO GET UP AND WALK THEN BEGAN ASKING ABOUT "WHAT WOULD HAPPEN IF MY HEART STOPPED" DISCUSSED STANDARD PRACTICE. ALL QUESTIONS ANSWERED. pt STATED "I JUST HAVEN'T THOUGHT ABOUT IT YET AND I THINK I NEED TO." pt REPORTED SOME ANXIETY. DISCUSSED TREATMENT PLAN AND HOW pt HAD SUCCESSFULLY GOTTEN OFF OF OXYGEN BY DOING PULMONARY REHAB. pt VERBALIZED UNDERSTANDING OF WHAT NEEDS TO BE DONE FAR TREATMENT GOES. ASSESSMENT DONE. MEDICATIONS GIVEN (SEE MAR). CALL LIGHT WITHIN REACH.
--- NOTE | 2020-08-27 22:17 | NUR ---
THIS RN INTO ROOM TO ASSIST PATIENT WITH WALK. PATIENT UP OUT OF CHAIR WITH STANDBY ASSIST. PATIENT AMBULATED OUT OF ROOM WITH FWW AND STANDBY ASSIST. PATIENT AMBULATED TO ROOM 130 AND BACK TO OWN HELEN. PATIENT APPEARS SOB, 02 SATS REMAINED 92-95%, HR INCREASED TO 120. PATIENT AMBULATED BACK TO CHAIR. 250 MLS OF WATER GIVEN PER REQUEST. CPAP PLACED BY PATIENT. NO FURTHER NEEDS AT THIS TIME, CALL LIGHT IN REACH.
--- NOTE | 2020-08-27 23:04 | NUR ---
ROUNDED ON pt. REPORTED "THAT WALK WAS GREAT, I GOT A LITTLE WINDED BUT IT WAS REALLY NICE." REQUESTED SLEEP AID, GIVEN (SEE MAR). NO FURTHER REQUESTS AT THIS TIME. CALL LIGHT WITHIN REACH.
--- NOTE | 2020-08-28 00:10 | NUR ---
CALL LIGHT ON. pt UP TO VOID SBA.
--- NOTE | 2020-08-28 00:32 | NUR ---
CALL LIGHT ON. pt UP TO CHAIR. NO FURTHER REQUESTS AT THIS TIME.
--- NOTE | 2020-08-28 00:42 | NUR ---
IN TO GIVE MEDICATION. pt REPORTED 6/10 PAIN, REFUSED PAIN MEDICATION AT THIS TIME. WOULD LIKE IT AROUND 04:30AM. ASSESSMENT DONE. NO CHANGES. pt UP TO CHAIR. CALL LIGHT WITHIN REACH.
--- NOTE | 2020-08-28 01:48 | NUR ---
CALL LIGHT ON. pt UP FROM BED TO BSC TO VOID. BSC EMPTIED. NO REQUESTS AT THIS TIME CALL LIGHT WITHIN THE [facility].
--- NOTE | 2020-08-28 04:00 | NUR ---
CALL LIGHT ON. pt UP TO TOILET AND BACK TO CHAIR. VITALS DONE. pt REQUESTED A PRN PAIN PILL FOR 6/10 PAIN. ASSESSMENT DONE. NO FURTHER REQUESTS AT THIS TIME. CALL LIGHT WITHIN REACH.
--- NOTE | 2020-08-28 06:49 | NUR ---
CALL LIGHT ON. pt REQUESTED TO GET UP TO THE CHAIR. LABS DRAWN. DAILY WT DONE. MEDICATIONS GIVEN (SEE MAR). PAIN 12/28. CALL LIGHT WITHIN REACH.
--- NOTE | 2020-08-28 07:40 | NUR ---
this rn in pts room to check on pt and do morning assessment. pt is sitting up in chair and states that she is feeling good this am. pt states that she "can feel her rolls of fat" instead of feeling bloated with fluid.
--- NOTE | 2020-08-28 08:39 | NUR ---
pt. went to bathroom brushed teeth, washed up then back to chair. Breakfast given. linens changed no other needs at this time. call light with in reach
--- NOTE | 2020-08-28 08:40 | NUR ---
THIS RN IN PTS ROOM TO CHECK ON PT AND GIVE MORNING MEDS. PT STATED UNDERSTANDING ABOUT EDUCATION ON MEDICATIONS AND TREATMENT PROCESS. PT OPENILY DISCUSSED WITH THIS RN ABOUT HER FLUID RESTRICTION, PT BEGINNING TO SHOW THAT SHE IS ABLE TO CONTROL HER FLUID RESTRICTION AND PLAN WELL THE DAY GOES ON.
--- NOTE | 2020-08-28 09:15 | NUR ---
THIS RN IN PTS ROOM TO ASSIST PT TO THE RESTROOM. PT STATES THAT SHE DID NEED ASSISTANCE TO WIPE. PT ABLE TO HAVE A LARGE BM AND A SMALL VOID. PT BACK TO CHAIR ON THE TELE MONITOR AND CALL LIGHT WITHIN REACH
--- NOTE | 2020-08-28 10:30 | NUR ---
Spoke with Rebeca. States she is feeling better each day. Now down 4 pounds today. Cont. to plan for dc to home with her children to assist when cleared for dc. Per 829 meeting with , pt will remain in the unit today.
--- NOTE | 2020-08-28 11:55 | NUR ---
THIS RN IN PTS ROOM TO GET PTS BLOOD SUGAR. PT STATES THAT SHE IS FEELING GOOD AND HAS NO CONCERNS, SHE IS JUST HUNGRY. WHILE THIS RN WAS IN THE OOM PT LEANED OVER TO MOVE SOMETING ON THE COUCH AND PULLED THE IV TUBING FROM THE CATHETER SITE. THIS RN ABLE TO CLEAN SITE AND DISINFECT TUBING AND RECONNECT IV MEDS FOR PT. THIS RN CHANGED THE DRESSING ON THE IV SITE. SITE ON LEFT FOREARM STILL FLUSHES WELL PT IN CHAIR WITH CALL LIGHT WITHIN REACH AND IS READY FOR LUNCH
--- NOTE | 2020-08-28 12:03 | NUR ---
COPD CARE PATH NOTE. BASED ON HISTORY OF COPD ADMISSIONS AND PERCIEVED SHORTNESS OF BREATH, PT HAS SUFFICIENT HOME COVERAGE FOR INHALED MEDICATION. THERAPEUTIC SUB FOR SYMBICORT STARTED ON THE FIRST DAY OF PATIENT'S STAY, AND SHE HAS ONLY REQUIRED ONE PRN SVN. MDI PROPER TECHNIQUE WITH SPACER TAUGHT TO PATIENT AND REINFORCED.
--- NOTE | 2020-08-28 12:45 | NUR ---
PER PT REQUEST THIS RN IN PTS ROOM TO ASSIT PT BACK TO BED AFTER VOIDING 550ML AT THIS TIME. PT ABLE TO GET BACK TO BED STEADY ON HER FEET. PT TO EDMUNDO DOWN AND BED TO TAKE AN AFTERNOON NAP. CALL LIGHT WITHIN REACH AND PERSONAL POSSESSIONS WITHIN REACH
--- NOTE | 2020-08-28 13:39 | NUR ---
PT ALERT, ORIENTED AND SITTING IN CHAIR ON O2 NC. PT IS VERY ENGAGING, HAS HER FAMILY NEAR HER AND SHE SEEMS TO REALLY ENJOY THIS. PT SAID SHE FEELS WELL CARED FOR, REQUESTED PRAYER. LEFT G.POST, WILL FOLLOW
--- NOTE | 2020-08-28 13:46 | NUR ---
THIS RN TO CHECK ON PT. PT IN BED AND APPPEARS TO BE RESTING WITH HER CPAP IN PLACE
--- NOTE | 2020-08-28 15:05 | NUR ---
THIS RN IN PTS ROOM TO GIVE PT HER AFTERNOON MEDS. PT SITTING UP TO CHAIR AND IS DOING WELL THIS AFTERNOON. PT STATES THAT THE PAIN MED THIS RN PROVIDED HER WITH AN HOUR AGO IS HELPING HER PAIN A LOT. PT STATES THAT SHE WOULD LIKE TO USE HER FREE WATER FROM BETWEEN LUNCH AND DINNER AT THIS TIME. THIS RN PROVIDED HER WITH THIS. PT HAS NO OTHER REQUESTS AT THIS TIME AND CALL LIGHT AND PERSONAL BELONGINGS ARE WITHIN REACH
--- NOTE | 2020-08-28 16:00 | NUR ---
THIS RN IN PTS ROOM PER PT REQUEST TO ASSIST PT TO THE RESTROOM. PT STILL STEADY ON HER FEET AND USES THE IV PLE WELL TO HELP BALANCE. PT BACK TO CHAIR TO WATCH HER SHOW ON HER IPAD. PT STATES THAT HER PAIN IS IMPROVED AND IS IN NO NEED FOR ANYTHING ELSE AT THIS TIME
--- NOTE | 2020-08-28 17:15 | NUR ---
THIS RN IN PTS ROOM TO CHECK ON PT. PT STATES THAT SHE IS DOING WELL. PTS DAUGHTER RACQUEL IN PTS ROOM GETTING RID OF PTS SKIN ON HER FEET AND LOWER LEGS, PT IS TOLERATING WELL. PT SITTING UP TO CHAIR AND HAS A BLOOD SUGAR OF 198, PT HAD A ICE CREAM WITH HALF OF HER LUNCH. OTHERWISE PT HAS NO OTHER CONCERNS AT THIS TIME BUMEX DRIP BAG CHANGED AT THIS TIME.
--- NOTE | 2020-08-28 18:52 | NUR ---
THIS RN IN PTS ROOM TO ASSIST PT TO THE RESTROOM. PT BACK TO BED AT THIS TIME WITH CALL LIGHT WITHIN REACH. PT STATES THAT SHE HAS HAD A WHEEZY COUGH SINCE SHE ASPERATED ON HER MEAT FROM DINNER. PT STATED SHE WAS HOPING FOR KILEY TREATMENT. THIS RN TO CALL RT. PT DOES HAVE A PRODUCTIVE, WHEEZY, BARKY COUGH. PT EDUCATION WAS GIVEN BY THIS RN AND BEATRICE LATHAM ABOUT EATING MORE SLOWLY AND TAKING SMALL SIPS OF WATER INBETWEEN BITES TO ASSIST WITH REDUCING HER RISK OF ASPIRATING AGAIN. PT EXHIBITED UNDERSTANDING OF TREATMENT.
--- NOTE | 2020-08-28 19:36 | NUR ---
RECEIVED REPORT FROM DAYSHIFT RNS. pt RESTING IN BED WATCHING TV. CALL LIGHT WITHIN REACH.
--- NOTE | 2020-08-28 20:49 | NUR ---
IN TO DO ASSESSMENT. SWITCHED OUT pt BED FOR COMFORT. pt REPORTED ACHES AND PAINS GREATER THAN BASELINE. ENCOURAGED TO AMBULATE AND MOVE. PRN PAIN MED GIVEN FOR 8/10 PAIN WITH SCHEDULED MEDS (SEE MAR). DISCUSSED 60 GRAM CARB DIET AND INSULIN REQUIREMENTS. pt ABLE TO TEACH BACK ON FLUID RESTRICTION, KNEW EXACTLY HOW MUCH SHE HAD REMAINING. REPORTED THE "TIGHTNESS" WAS DECREASING AND SHE WAS ABLE TO MOVE BETTER THAN AT ADMIT. LUNG SOUNDS CLEAR. LOOSE COUGH. pt RESTING IN BED WITH HOME CPAP AT BEDSIDE. NO FURTHER REQUESTS. CALL LIGHT WITHIN REACH.
--- NOTE | 2020-08-28 22:06 | NUR ---
CALL LIGHT ON. UP TO VOID AND BACK TO BED. SBA. CALL LIGHT WITHIN REACH.
--- NOTE | 2020-08-29 00:01 | NUR ---
CALL LIGHT ON. pt UP TO VOID SBA THEN TO CHAIR. SOB WHEN GETTING TO THE CHAIR O2 SAT 94%. AUDIBLE WHEEZE FROM UPPER RESPIRATORY. LUNG SOUNDS UNCHANGED. ASSESSMENT DONE. CALL LIGHT WITHIN REACH.
--- NOTE | 2020-08-29 00:45 | NUR ---
CALL LIGHT ON. pt REPORTED EPIGASTRIC PAIN, DENIED RADIATING PAIN. STATED "IT DOESN'T REALLY FEEL LIKE HEARTBURN BUT IT COULD BE." NO CHANGES NOTED ON ECG. pt OKAY AT THIS TIME. WILL CALL IF ANYTHING CHANGES.
--- NOTE | 2020-08-29 01:27 | NUR ---
CALL LIGHT ON. pt UP TO VOID SBA AND BACK TO CHAIR. PROVIDED MORE FLUIDS. pt REPORTED THAT THE EPIGASTRIC PAIN HAS IMPROVED. CALL LIGHT WITHIN REACH. NO FURTHER REQUESTS AT THIS TIME.
--- NOTE | 2020-08-29 02:14 | NUR ---
CALL LIGHT ON. pt REQUESTED A PRN PAIN MED (SEE MAR). pt RESTING IN BED, HOME CPAP IN PLACE. CALL LIGHT WITHIN REACH.
--- NOTE | 2020-08-29 04:28 | NUR ---
CALL LIGHT ON. pt UP TO VOID AND BACK TO THE CHAIR. ASSESSMENT DONE. NO CHANGES NOTED. RATED PAIN 4/10. CALL LIGHT WITHIN REACH.
--- NOTE | 2020-08-29 06:11 | NUR ---
CALL LIGHT ON. pt REQUESTED HER LAST BIT OF FLUID TO BE COFFEE. PROVIDED. WEIGHT DONE. NO FURTHER REQUESTS AT THIS TIME.
--- NOTE | 2020-08-29 06:58 | NUR ---
CALL LIGHT ON. pt UP TO VOID AND DO MORNING CARES. CALL LIGHT WITHIN REACH.
--- NOTE | 2020-08-29 08:10 | NUR ---
THIS RN IN TO ASSESS PT AND ADMINISTER ORDERED INSULIN. PT SITTING IN BEDSIDE CHAIR AWAKE AND ALERT AT THIS TIME. 5 UNITS INSULIN ADMINSITERED PER SLIDING SCALE. PT REPORTS NO FURTHER NEEDS AT THIS TIME AND IS ABOUT TO EAT HER BREAKFAST. WILL CONTINUE PLAN OF CARE. CALL LIGHT IN REACH, IV MEDICATION INFUSING AT ORDERED RATE.
--- NOTE | 2020-08-29 08:13 | NUR ---
Spoke with Rebeca. She is up in a chair, smiling, eating breakfast. States she cont. to feel better daily. Denies needs, cont. to plan for dc to home when cleared by
--- NOTE | 2020-08-29 08:42 | NUR ---
v/s and I&Os done, ice chips given bed done room picked up. no other needs at this time.
--- NOTE | 2020-08-29 10:03 | NUR ---
THIS RN IN TO ASSESS PT AND ADMINISTER ORDERED MEDICATIONS. PT SITTING IN BED ALERT AND ORIENTED X 3. PT REPORTS 6/10 LOWER BACK PAIN AT THIS TIME WHEN ASKED BUT DENIES THE NEED FOR HER PRN PAIN MEDICATION STATING IT IS TOLERABLE. ORDERED MEDICATIONS ADMINISTERED AT THIS TIME. PT ASSESSED, PT STILL EDEMATOUS IN LEGS, ABDOMEN, AND REPORTS SOB WHEN WALKING, WHICH SHE STATES IS NORMAL FOR HER. DR. MARTÍNEZ IN TO ASSESS PT AND UPDATE ON PLAN OF CARE. NEW ORDERS GIVEN TO INCREASE BUMEX TO 1.0 MG/HR. BUMEX RATE INCREASED TO ORDERED RATE AT THAT TIME. PT REPORTS NO FURTHER NEEDS AND IS NOW SITTING IN THE BEDSIDE CHAIR TALKING TO HER DAUGHTER. CALL LIGHT IN REACH, WILL CONTINUE PLAN OF CARE.
--- NOTE | 2020-08-29 10:50 | NUR ---
THIS RN IN TO ADMINISTER ORDERED MEDICATIONS. PT SITTING IN BEDSIDE CHAIR AWAKE AND ALERT. ORDERED BUMEX AND PO POTASSIUM ADMINISTERED AT THIS TIME ORDERED. PT IV IN R UPPER ARM/SHOULDER DC'D AT THIS TIME DUE TO IT LEAKING. REMOVAL PER PROTOCOL, IV CATHETER INTACT, SITE WNL, PT TOLERATED REMOVAL WELL. PT REPORTS NO FURTHER NEEDS AT THIS TIME. PT'S IN ROOM WITH PT AT THIS TIME, IV MEDICATION INFUSING AT ORDERED RATE, CALL LIGHT IN REACH.
--- NOTE | 2020-08-29 12:19 | NUR ---
THIS RN IN TO ASSESS PT. PT LAYING IN BED WITH AT BEDSIDE AWAKE AND ALERT. ORDERED INSULIN ADMINISTERED PER SLIDING SCALE AND NEW BAG OF BUMEX STARTED. PT REPORTS NO SOB AT THIS TIME AND NO FURTHER NEEDS. PT NO EATING WITH IN ROOM, NO FURTHER NEEDS REPORTED WHEN ASKED, WILL CONTINUE PLAN OF CARE. CALL LIGHT IN REACH, BED IN LOWEST POSITION.
--- NOTE | 2020-08-29 12:50 | NUR ---
RESPONDED TO PT CALL LIGHT. PT STATED SHE WAS HAVING LOWER BACK PAIN AT THIS TIME WHICH WAS AN 8/10 AND SOME LOWER LEG PAIN. PT ASKED FOR HER PRN PAIN MEDICATION. PRN PAIN MEDICATION PROVIDED (SEE MAR). PT REPORTS NO FURTHER NEEDS AT THIS TIME AND IS ALERT AND ORIENTED LAYING IN BED WITH AT THE BEDSIDE. WILL CONTINUE PLAN OF CARE, CALL LIGHT IN REACH, BED IN LOWEST POSITION.
--- NOTE | 2020-08-29 13:26 | NUR ---
medical surgery nurse gave pt. bed bath. gown changed. no other needs at this time
--- NOTE | 2020-08-29 14:37 | NUR ---
THIS RN IN TO CHECK ON PT. PT STATED SHE WAS HAVING ITCHING IN HER INNER RIGHT THIGH. AREA ASSESSED AND IS WARM AND RED AND GOING FROM HER INNER THIGH TO THE FRONT THIGH. DR. MARTÍNEZ NOTIFIED VIA PHONE. DR. MARTÍNEZ STATES HE WILL BE THERE TO ASSESS THE SITE. PT REPORTS NO FURTHER NEEDS AT THIS TIME AND IS ALERT, ORIENTED, LAYING IN BED. WILL CONTINUE PLAN OF CARE.
--- NOTE | 2020-08-29 15:02 | NUR ---
THIS RN IN TO ADMINISTER ORDERED MEDICATIONS TO PT. PT LAYING IN BED AWAKE AND ALERT. ORDERED MEDICATIONS ADMINISTERED AT THIS TIME. WHEN ASKED ABOUT PAIN PT STATES SHE HAS 5/10 PAIN IN HER BACK WHICH IS TOLERABLE. PT THEN GOT UP AND MOVED OVER TO THE BEDSIDE CHAIR. LEGS WERE PROPPED UP AND PT WAS RECLINED. PT REPORTS NO FURTHER NEEDS AT THIS TIME, CALL LIGHT IN REACH, IV MEDICATION INFUSING ORDERED, WILL CONTINUE PLAN OF CARE.
--- NOTE | 2020-08-29 17:28 | NUR ---
THIS RN IN TO ASSESS PT AND ADMINISTER ORDERED MEDICATIONS. PT AWAKE AND ALERT LAYING AT BEDSIDE CHAIR. 5 UNITS OF INSULIN GIVEN PER SLIDING SCALE AT THIS TIME. PT THEN BEGAN TO EAT DINNER. ASSESSMENT COMPLETE AT THIS TIME, VITALS TAKEN. DR. MARTÍNEZ IN TO ASSESS THIGH/LEG WHICH PT STATED WAS ITCHING EARLIER IN THE DAY. NEW ORDERS GIVEN FOR IV ABX. PT REPORTS NO NEEDS AT THIS TIME AND IS EATING DINNER. WILL CONTINUE PLAN OF CARE AND ADMINISTER ORDERED IV ABX. CALL LIGHT IN REACH, IV MEDICATION INFUSING ORDERED.
--- NOTE | 2020-08-29 18:22 | NUR ---
THIS RN IN TO ADMINSITER ORDERED IV VANCO. PT SITTING IN BEDSIDE CHAIR AWAKE AND ALERT AT THIS TIME. IV VANCO ADMINISTERED, PT UPDATED ON PLAN OF CARE AND PURPOSE OF VANCO. NEW BAG OF IV BUMEX ALSO STARTED AT THIS TIME. PT REPORTS NO FURTHER NEEDS AT THIS TIME AND WENT OVER TO LAY DOWN ON THE BED. PT NOW LAYING IN BED, IV MEDS INFUSING ORDERED, PT REPORTS NO FURTHER NEEDS, CALL LIGHT IN REACH, BED IN LOWEST POSITION, WILL CONTINUE PLAN OF CARE.
--- NOTE | 2020-08-29 18:50 | NUR ---
RESPONDED TO PT CALL LIGHT. PT STATED THAT HER R ARM WAS STARTING TO ITCH. IV SITE WAS ASSESSED AND LOOKED INFILTRATED. REGION WAS REDDENED AND A SMALL MASS WAS PRESENT NEAR THE IV SITE. IV WAS DC'D, AND AN ICE PACK WAS GIVEN TO THE PT FOR THE SITE. THIS RN ATTEMPTED TO START ANOTHER IV BUT WAS UNSUCCESSFUL. YEISON WALLACE IN TO ATTEMPT AN IV START. PT REPORTS NO FURTHER NEEDS AT THIS TIME, WILL CONTINUE PLAN OF CARE. CALL LIGHT IN REACH, BED IN LOWEST POSITION, PT AWAKE AND ALERT LAYING IN BED. YEISON WALLACE IN ROOM WITH PT.
--- NOTE | 2020-08-29 19:42 | NUR ---
SHIFT CHANGE REPORT DONE. PATIENT REQUIRED SECOND IV SITE. 22G ESTABLISHED IN OUTTER RIGHT AC. PATIENT TOLERATED WELL. PATIENT REPORTS BEING READY FOR HER PAIN PAIN AND OTHER EVENING MEDICATIONS SHE IS READY FOR BED.
--- NOTE | 2020-08-29 20:19 | NUR ---
PATIENT PROVIDED WITH EVENING MEDICATIONS. PATIENT REPORTS PAIN 8.10 IN HER LOWER BACK, HIPS AND LEGS. ASSISTED PATIENT TO SIT IN THE RECLINER. HEAT PACK ON HER BACK AND A WARM BLANKET. VS STABLE. PATIENT'S LUNG SOUNDS ARE DIMINISHED THROUGHOUT WITH EXPIRTORY WHEEZES IN RIGHT UPPER LOBE. PATIENT HAS HARSH COUGH. GENERALIZED EDEMA. REDNESS AND WARMTH NOTED ON RIGHT UPPER THIGH. AREA IS PAINFUL. INFILTRATION SITE ON RIGHT FOREARM IS SMALL AND ICE PACK WAS APPLIED FOR ABOUT AN HOUR. IV BUMEX AT 1MG/HR. IV VANCO INFUSING PER ORDER, SITE WNL. PATIENT WANTS TO SIT IN CHAIR FOR A LITTLE WHILE UNTIL READY FOR BED AT WHICH TIME CPAP WILL BE SET UP. CALL LIGHT IN REACH.
--- NOTE | 2020-08-29 21:38 | NUR ---
PATIENT ASSISTED INTO BED. CPAP DIRECTOR OF DATABASE MARKETING. PATIENT REPORTS BEING COMFORTABLE. IV SITE WNL X2.
--- NOTE | 2020-08-29 23:46 | NUR ---
PATIENT REPORTS ON GOING SORENESS AND PAIN IN HER BACK AND HIPS. PATIENT AMBULATED AND STRETCHED IN THE ROOM. MOVED FROM CHAIR TO BED SEVERAL TIMES. HEATING PACK IN PLACE ON LOWER BACK. ASSISTED PATIENT TO POSITION FOR COMFORT WITH MINIMAL RELIEF.
--- NOTE | 2020-08-30 00:12 | NUR ---
PATIENT PROVIDED WITH PRN NORCO PER ORDERS FOR ONGOING PAIN 8/10 IN HER LOWER BACK AND HIPS.
--- NOTE | 2020-08-30 02:32 | NUR ---
PATIENT ABLE TO SLEEP ON HER SIDE FROM 0100 TO 0215. PATIENT THEN UP TO THE BATHROOM AND INTO RECLINER. HEAT PACK IN PLACE ON HER BACK.
--- NOTE | 2020-08-30 04:00 | NUR ---
PATIENT BACK TO THE BED FROM RECLINER AFTER GETTING UP TO VOID. IV BUMEX INFUSING PER ORDER, SITE WNL. PATIENT ON RIGHT SIDE. CPAP IN PLACE. VS STABLE. CALL LIGHT IN REACH.
--- NOTE | 2020-08-30 05:30 | NUR ---
PATIENT IN RECLINER WATCHING TV. LAB IN FOR MORNING DRAW. PATIENT DENIED ANY NEEDS.
--- NOTE | 2020-08-30 09:00 | NUR ---
THIS RN IN TO ASSESS PT AND ADMINISTER ORDERED MEDICATIONS. PT SITTING IN BEDSIDE RECLINER ALERT AND ORIENTED. DR. MARTÍNEZ IN INITALLY TO ASSESS PT AND UPDATE PT ON PLAN OF CARE. NO NEW ORDERS GIVEN AT THIS TIME. ORDERED MEDICATIONS ADMINISTERED, IV MEDICATION INFUSING ORDERED. PT REPORTS 5-6/10 PAIN AT THIS TIME BUT STATES SHE DOES NOT NEED ANY PAIN MEDICATION AT THIS TIME. VITALS TAKEN AT THIS TIME AND ARE STABLE. PT REPORTS NO FURTHER NEEDS. CALL LIGHT IN REACH, WILL CONTINUE PLAN OF CARE.
--- NOTE | 2020-08-30 10:10 | NUR ---
THIS RN IN TO CHECK ON PT. PT NOW LAYING IN BED AWAKE AND ALERT ON HER PHONE. PT REPORTS NO FURTHER NEEDS AT THIS TIME, WILL CONTINUE PLAN OF CARE. CALL LIGHT IN REACH, BED IN LOWEST POSITION, IV MEDICATION INFUSING ORDERED.
--- NOTE | 2020-08-30 11:53 | NUR ---
THIS RN IN TO ASSESS PT AND ADMINISTER INSULIN. PT AWAKE AND ALERT LAYING IN BED AT THIS TIME, IV MEDICATION INFUSING ORDERED. PT BLOOD SUGAR 248, 5 UNITS + 7 UNITS SLIDING SCALE INSULIN ADMINISTERED AT THIS TIME. LUNCH BROUGHT IN FOR PT AT THIS TIME. PT REPORTS NO FURTHER NEEDS AT THIS TIME AND IS EATING HER LUNCH SITTING ON THE SIDE OF THE BED. CALL LIGHT IN REACH, BED IN LOWEST POSITION, WILL CONTINUE PLAN OF CARE.
--- NOTE | 2020-08-30 11:58 | NUR ---
PT SITTING IN CHAIR, ALERT AND ORIENTED. HAD GOOD VISIT, GAVE PT A P.SHAWL AND SEEMED TOUCHED. BLESSING WAS SHARED, WILL FOLLOW NEEDED
--- NOTE | 2020-08-30 12:38 | NUR ---
NO CHANGE TO DISCHARGE PLAN TO RETURN HOME.
--- NOTE | 2020-08-30 13:09 | NUR ---
THIS RN IN TO CHECK ON PT. PT LAYING IN BED AWAKE AND ALERT WITH AT BEDSIDE RECLINER. PT REPORTS HAVING A 9/10 PAIN IN HER BACK AND LEGS AND REQUESTS PRN PAIN MEDICATION. PRN NORCO GIVEN ALONG WITH SCHEDULED PO MEDICATION. PT REPORTS NO FURTHER NEEDS AT THIS TIME, WILL CONTINUE PLAN OF CARE. CALL LIGHT IN REACH, BED IN LOWEST POSITION, IV MEDICATION INFUSING AT ORDERED RATE.
--- NOTE | 2020-08-30 14:53 | NUR ---
THIS RN RESPONDED TO IV PUMP. PT LAYING IN BED AWAKE AND ALERT. IV BUMEX BAG COMPLETE. NEW BAG OF BUMEX STARTED AND SCHEDULED MEDICATIONS ADMINISTERED AT THIS TIME. WHEN ASKED ABOUT PAIN PT REPORTS 6-7/10 PAIN AND STATES THE NORCO HELPED. PT REPORTS NO FURTHER NEEDS AT THIS TIME, WILL CONTINUE PLAN OF CARE. CALL LIGHT IN REACH, BED IN LOWEST POSITION.
--- NOTE | 2020-08-30 16:48 | NUR ---
THIS RN IN TO ASSESS PT. PT LAYING IN BED AT THIS TIME AWAKE AND ALERT. PT BLOOD SUGAR TAKEN AT THIS TIME AND WAS 203. PT REPORTS NO SOB AT THIS TIME AND STATES HER BREATHING HAS IMPROVED. PT VITALS TAKEN AT THIS TIME WELL. PT REPORTS NO FURTHER NEEDS AT THIS TIME, NOW IN ROOM ON BEDSIDE RECLINER. PT STATED SHE PLANNED ON GETTING UP TO GO TO THE BATHROOM SHORTLY. WILL CONTINUE PLAN OF CARE, CALL LIGHT IN REACH, BED IN LOWEST POSITION, IV MEDICATION INFUSING AT ORDERED RATE.
--- NOTE | 2020-08-30 17:16 | NUR ---
THIS RN IN TO ADMINISTER ORDERED INSULIN AND PO MEDICATIONS. PT GIVEN 5 UNITS PER SLIDING SCALE AND 5 ADDITIONAL UNITS SCHEDULED. PT REPORTS NO FURTHER NEEDS AND HAS STARTED EATING HER DINNER. WILL CONTINUE PLAN OF CARE, CALL LIGHT IN REACH, BED IN LOWEST POSITION, AT BEDSIDE.
--- NOTE | 2020-08-30 17:55 | NUR ---
THIS RN IN TO START IV ABX. PT LAYING IN BED AWAKE AND ALERT. UPON ASSESSING IV ON R FOREARM, IV WAS LEAKING AND NOT PATENT WHEN ATTEMPTING TO FLUSH. IV ABX NOT GIVEN AT THIS TIME. IV DC'D AND WAS WITHIN NORMAL LIMITS, CATHETER INTACT UPON REMOVAL, PT TOLERATED REMOVAL WELL. 2 UNSUCCESFUL IV ATTEMPTS DONE BY THIS RN, WILL NOTIFY ANOTHER RN TO ASSIST WITH IV PLACEMENT. PT REPORTS NO FURTHER NEEDS AT THIS TIME AND IS AWAKE AND ALERT LAYING IN BED. CALL LIGHT IN REACH, BED IN LOWEST POSITION.
--- NOTE | 2020-08-30 18:27 | NUR ---
THIS RN IN TO START IV ABX, YEISON WALLACE INSERTED A NEW IV IN THE RIGHT A.C. PT TOLERATED INSERTION WELL. AFTERWARDS, PT GOT UP TO BATHROOM TO VOID. PT NOW SITTING IN BEDSIDE CHAIR AWAKE AND ALERT. IV ABX INFUSING ORDERED. PT REPORTS NO FURTHER NEEDS AT THIS TIME, WILL CONTINUE PLAN OF CARE. CALL LIGHT IN REACH.
--- NOTE | 2020-08-30 19:23 | NUR ---
SHIFT REPORT RECEIVED. PATIENT IN BED. PLACING HOME CPAP ON FOR SOME REST. CALL LIGHT IN REACH. IV SITES WNL X2.
--- NOTE | 2020-08-30 20:07 | NUR ---
PATIENT UP TO RECLINER. REPORTS BACK PAIN, 01/28. PRN NORCO PROVIDED. HEAT PACK IN PLACE.
--- NOTE | 2020-08-30 21:30 | NUR ---
PATIENT PROVIDED WITH SCHEDULED MEDS. PATIENT UP TO BATHROOM TO VOID. REPORTS SORENESS IN HER BACK AND LEGS. PATIENT HAS CLEAR LUNG SOUNDS, DIM IN THE BASES. 2+ PITTING EDEMA NOTED IN [place] LOWER LEGS. UPPER LEGS ARE TIGHT, REDNESS NOTED ON RIGHT THIGH ASSOCIATED WITH WARMTH AND TENDERNESS. BUMEX INFUSION AT 1 MG/HR. SITE REDRESSED, WNL. PATIENT PLACED HOME CPAP ON AND ASSISTED TO TURN TO HER RIGHT SIDE TO SLEEP. LIGHTS DIMMED.
--- NOTE | 2020-08-31 | NUR ---
PATIENT UP TO THE RECLINER. REPORTS HAVING SLEPT BETTER THAN PREVIOUS NIGHTS. IS SORE FROM THE BED NOW THOUGH. HEAT PACK IN PLACE BEHIND PATIENT. IV SITE WNL. PATIENT DENIED OTHER NEEDS.
--- NOTE | 2020-08-31 01:15 | NUR ---
patient up in the recliner. request zoe plasencia, which was provided for 8/10 back and hip pain.
--- NOTE | 2020-08-31 02:00 | NUR ---
PATIENT IS BACK IN BED. CPAP IN PLACE.
--- NOTE | 2020-08-31 04:55 | NUR ---
patient up to the bathroom. reports feeling her feel and legs are tight. difficult to walk. uses fww. patient voids and then gets into bed. legs elevated. cpap in place.
--- NOTE | 2020-08-31 05:45 | NUR ---
PATIENT INTO RECLINER FROM BED AFTER ELEVATING HER LEGS FOR ABOUT AN HOUR. PATIENT REPORTS FEELING MORE FULL AND TIGHT IN HER UPPER LEGS AND ABD THAN PREVIOUS DAY. PATIENT IS PAINFUL. BUMEX INFUSING PER ORDER, SITE WNL. LAB IN FOR MORNING DRAW.
--- NOTE | 2020-08-31 07:30 | NUR ---
REPORT RECIEVED. PATIENT IS SITTNG UP IN CHAIR. C/O PAIN IN LOWER BACK, LEGS. PATIENT SAID SHE SLEPT BETTER LAST NIGHT. STATES SHE DOES WITH THAT SHE STILL IS NOT FEELING WELL. ASSESSMENT DONE. ACCUCHECK-213. LANTUS 50 UNITS AND HUMALOG 10 UNITS SQ GIVEN. TALKED WITH PATIENT ABOUT POC, IS UNDERSTANDING.
--- NOTE | 2020-08-31 08:49 | NUR ---
pt assisted in the bathroom with clean up as she is not able to reach. pt had a large soft bm, and a large void. pt able to ambulate independently back to chair. pt denies any other needs at this time. remains alert and oriented x4, cooperative.
--- NOTE | 2020-08-31 09:44 | NUR ---
pt is in bed resting at this time, c/o 01/28 cronic pain to legs and hips, 1 tab po norco given. pt is alert and oriented x4, cooperative. discussed plan to transfer pt to med/surg floor, pt is agreable. pt denies anyother needs at this time.
--- NOTE | 2020-08-31 10:15 | NUR ---
FULL REPORT GIVEN TO BERTA LATHAM VIA PHONE, ALL QUESTIONS ANSWERED.
--- NOTE | 2020-08-31 10:30 | NUR ---
PT ARRIVED TO FLOOR VIA BED. PT HAS NO COMPLIANTS OR CONCERNS AT THIS TIME.
--- NOTE | 2020-08-31 10:32 | NUR ---
PT TRANSFERED TO ROOM 112 VIA BED, ALL PT BELONGINGS WENT WITH PT.
--- NOTE | 2020-08-31 15:30 | NUR ---
this rn in pts room to give pt her evening meds and do afternoon assessment. pt sitting up to chair after a shower, pt asking for a pain pill at this time and some mucinex. pt tolerating treatment well and has no complaints at this time
--- NOTE | 2020-08-31 18:21 | NUR ---
PT ASKIN GABOUT HER WEIGHT AND IS NOW USING THE SHEET TO TRACK HER WEIGHT WHILE STILL HERE IN THE [facility]. PT SEES HOW MUCH SHE HAS LOST WHILE HERE AND IS VERY EXCITED. PT STATES THAT SHE HAS MORE TO LOSE AND IS WILLING TO WORK HARD FOR IT
--- NOTE | 2020-08-31 19:23 | NUR ---
RECEIVED REPORT FROM YEISON HAMPTON. pt RESTING IN BED. NO REQUESTS AT THIS TIME. CALL LIGHT WITHIN REACH. WHITEBOARD UPDATED.
--- NOTE | 2020-08-31 20:33 | NUR ---
DUMPER ROUNDING NOTE. PT SITTING UP IN RECLINER WITH FEET IN DEPENDENT POSTION, WATCHING TV. PRN PAIN MED ADMINISTERED, SEE EMAR. PT RATES PAIN 8.10 TO HIPS, LEGS, LOW BACK. PT COMPLAINS OF SWELLING TO BLE'S. ENCOURAGED PT TO PUT FOOT REST UP ON RECLINER, PT STATES AGREEMENT. ART SALES CONSULTANT ASSISTS WITH ELEVATING LEGS. RT TO ROOM FOR MDI ADMINISTRATION. PT DENIES FURTHER NEEDS AT THIS TIME. WHITE BOARD UPDATED. CALL LIGHT IN REACH.
--- NOTE | 2020-08-31 21:40 | NUR ---
ASSESSMENT DONE. pt EXPLAINED HOW MUCH FLUID SHE HAD LEFT ON HER FLUID RESTRICTION. DISCUSSED PLAN FOR THE NIGHT. LUNG SOUNDS DIM. MEDICATIONS GIVEN (SEE MAR). NO FURTHER REQUESTS AT THIS TIME. CALL LIGHT WITHIN REACH.
--- NOTE | 2020-08-31 23:00 | NUR ---
pt UP WALKING IN THE ODEN. ICE PROVIDED.
--- NOTE | 2020-09-01 01:15 | NUR ---
ROUNDED ON pt. RESTING IN BED ON CPAP. EYES CLOSED, RESPIRATIONS REGULAR AND UNLABORED CALL LIGHT WITHIN REACH.
--- NOTE | 2020-09-01 04:49 | NUR ---
pt REQUESTED A PAIN PILL FOR 8/10 PAIN PRN GIVEN (SEE MAR). LAST OF FLUIDS PROVIDED. ASSESSMENT DONE. NO CHANGES. CALL LIGHT WITHIN REACH.
--- NOTE | 2020-09-01 05:38 | NUR ---
STANDING WEIGHT OBTAINED. VITALS DONE. MEDICATIONS GIVEN (SEE MAR). NO FURTHER REQUESTS AT THIS TIME. CALL LIGHT WITHIN REACH.
--- NOTE | 2020-09-01 07:36 | NUR ---
THIS RN RECEIVED REPORT FROM ANA LUISA LATHAM. PT AWAKE AND SITTING UP IN THE CHAIR AND STATES THAT SHE IS DOING WELL THIS AM AND WILL JUST NEED A CUP OF ICE LATER
--- NOTE | 2020-09-01 08:30 | NUR ---
THIS RN IN PTS ROOM TO CHECK ON PT, GET PTS BLOOD SUGAR AND GIVE MORNING INSULIN AND MEDS. PT SITTING UP IN CHAIR AND EATING HER BREAKFAST. PT STATES THAT SHE IS DOING WELL THIS AM AND HAS NO COMPALINTS.
--- NOTE | 2020-09-01 10:35 | NUR ---
THIS RN IN PTS ROOM TO CHECK ON PT. PT STATES THAT SHE IS DOING WELL. THIS RN DISCUSSED WITH PT THAT WE WILL HOLD THE LASIX TODAY BECAUSE OF HER CRATINE LEVEL. PT STATED UNDERSTANDING AND PLANS TO CONTINUE ON HER LOW SODIUM DIET AND FLUID RES.
--- NOTE | 2020-09-01 15:05 | NUR ---
THIS RN IN PTS ROOM TO GIVE PT HER AFTERNOON MEDS. PT SITTING UP TO CHAIR THIS AFTERNOON AND STATES THAT HER PAIN IS INCREASING THIS AFTERNOON. PT IS REQUESTING HER FIRST NORCO FROM THIS RN TODAY. PT STATES THAT SHE FEELS LIKE SHE GOT A GOOD REST THIS AFTERNOON WHILE ON CPAP.
--- NOTE | 2020-09-01 19:26 | NUR ---
PATIENT WANTED TO TAKE A BREAK TODAY SHE DIDN'T WANT A SHOWER. BUT SHE DID AM CARE.
--- NOTE | 2020-09-01 21:19 | NUR ---
GOES FROM CHAIR TO BED, INDEPENDENT IN ROOM, GENERALIZED EDEMA, ON ROOM AIR, LUNGS WITH INSP WHEEZING, DIM AT BASES AND COARSE EXP. NO SOB AT THIS TIME. WEARS CPAP AT HS, ON AEROSOL PRECAUTIONS, GETS NEBS. RED BETWEEN BREASTS AND PANNUS POWDER APPLIED, BRUISED AREAS OVER ARMS HEALING. PICKPOCKET DUNAWAY OVER ABD, OLD HEALED. ENC TO ELEVATE LEGS EHEN UP IN HCAIR. 2 SL PATENT. PLEASANT AND COOP. TOLERATING FLUIDS AND DIET WELL. CBG 173, RECEIVED 3 UNTIS SS INSULIN.
--- NOTE | 2020-09-02 01:44 | NUR ---
in chair, using cpap, eyes closed, no distress, legs dependent position
--- NOTE | 2020-09-02 02:42 | NUR ---
scds on, noted to have incerased edema above L knee mid thigh down. elevated, redness of L leg improving, edema w/o changes. using cpap at this time. was medicated by another RN per c/o generalized leg and back pain.
--- NOTE | 2020-09-02 04:17 | NUR ---
pt up to br, voided dark yellow urine and had M size, formed bm. tolerated well, to chair, scds in place, legs elevated, edema abd and LE , no changes. turned CPCP off at this time, on room air. Daily standing weight 157.7 KG no sob with exertion noted. Cooperative, pleasant, no further c/o pain
--- NOTE | 2020-09-02 04:50 | NUR ---
PT USES CPAP AT HS, ON ROOM AIR AT THIS TIME, SITTING UP INCHAIR, LEGS ELEVATED, REDNESS/EDEMA OF ABD AND R AND LEFT LEG W/O CHANGES. SCDS IN PLACE. KPAD TO BACK, WAS MEDICTED X2 PER C/O GENERALIZED, LEG AND BACK PAIN WITH GOOD PAIN RELIEF, HAD BM, AND VOIDING QS, 1PA/FWW/INDEPENDENT IN ROOM AT TIMES, NO SOB NOTED WITH EXERTION. CBG AWAS 173 AT BEGINING OF SHIFT AND RECEIVED 3 UNTIS SS HUMALOG INSULIN. TOLERATING DIET AND FLUIDS WELL. TATIANA AND COOP
--- NOTE | 2020-09-02 06:50 | NUR ---
Dr Werner notified of pts 103/40 BP, no new orders. pt asymptomatic, awake, alert, denies feeling lightheaded
--- NOTE | 2020-09-02 07:36 | NUR ---
this rn received report from zachary braga. pt on precaustions at this time due to cpap in use.
--- NOTE | 2020-09-02 08:10 | NUR ---
THIS RN IN PTS ROOM TO GIVE PT HER MORNING INSULINS. PT SITTING IN CHAIR AT THIS TIME AND STATES THAT SHE IS DOING WELL AT THIS TIME
--- NOTE | 2020-09-02 10:00 | NUR ---
THIS RN IN PTS ROOM TO GIVE PT THE REST OF HER MONRING MEDS. PT LAYING IN BED AND STATES THAT CAME IN AND TALKED WITH HER. PT TO START ON FLUID. PT ALSO STATED THAT SHE WAS HOPING FOR A PAIN PILL THIS AM. ITZ RN IN PTS ROOM TO GIVE PT HER A PAIN PILL
--- NOTE | 2020-09-02 13:45 | NUR ---
THIS RN IN PTS ROOM TO CHECK ON PT, DO I&O, VITALS AND ASSESSMENT. PT STATES THAT SHE IS DOING WELL AND DOESN'T NEED ANYGHITN AT THIS TIME
--- NOTE | 2020-09-02 13:55 | NUR ---
SPOKE WITH PATIENT IN ROOM. PATIENT AWAKENED TO MY OPENING DOOR AND KNOCK. PATIENT VERY PLEASANT. SHE STILL PLANS ON GOING HOME WITH FAMILY AT DISCHARGE. DOES NOT KNOW OF ANYTHING SHE NEEDS AT THIS TIME FOR THAT. PATIENT STATES SHE IS FEELING MUCH BETTER, LESS SOB TODAY. UNDERSTANDS SHE IS GETTING A LITTLE IV FLUIDS BECAUSE HER KIDNEYS HAVE BEEN AFFECTED. CM WILL CONTINUE TO FOLLOW NEEDED.
--- NOTE | 2020-09-02 14:56 | NUR ---
PT ALERT, ORIENTED AND VISITING WITH HER BISMARK. PT SAID SHE IS FEELING BETTER, BUT KIDNEY FUNCTION HAS BEEN DISRUPTED AND WALKING A BALANCING ACT WITH LASICS. HAD PLEASANT VISIT, VISITED SOME ABOUT BOTH THEIR OLIVIER. PT REQUESTED PRAYER, WILL FOLLOW NEEDED
--- NOTE | 2020-09-02 18:50 | NUR ---
PATIENT UP TO BATHROOM AND BACK TO CHAIR, SBA. PATIENT DID A PARTIAL BATH WHILE IN BATHROOM. ORAL CARE, SKIN CARE, CAROLE CARE DONE. NEW GOWN PROVIDED. VITALS AND I&O'S CHARTED. CALL LIGHT IN REACH. NO FURTHER NEEDS AT THIS TIME.
--- NOTE | 2020-09-02 19:17 | NUR ---
RECEIVED REPORT FROM YEISON HAMPTON. pt UP TO CHAIR. NO REQUESTS AT THIS TIME. CALL LIGHT WITHIN REACH.
--- NOTE | 2020-09-02 19:45 | NUR ---
IV FLUIDS COMPLETED. pt TO BED. NO REQUESTS AT THIS TIME. CALL LIGHT WITHIN REACH.
--- NOTE | 2020-09-02 21:20 | NUR ---
IN TO DO ASSESSMENT. pt UP TO CHAIR. ASSESSMENT DONE. pt REPORTED THAT SHE IS FEELING A LITTLE MORE SWOLLEN THEN YESTERDAY. MEDICATIONS GIVEN (SEE MAR). EDUCATION DONE ON CHF AND KIDNEY INJURY. pt WILL CALL WHEN READY TO GET BACK TO BED. NO FURTHER REQUESTS AT THIS TIME. CALL LIGHT WITHIN REACH.
--- NOTE | 2020-09-02 22:03 | NUR ---
pt CALLED TO GET BACK TO BED. CORRECTIONS OFFICER TO ROOM.
--- NOTE | 2020-09-03 00:58 | NUR ---
PATIENT CALLED. PATIENT IS UP IN THE CHAIR. PATIENT IS INDEPENDENT IN THE ROOM. JUST NEED THE SCD'S OFF OF HER.
--- NOTE | 2020-09-03 02:00 | NUR ---
ROUNDING CHECK. PATIENT IS IN BED WATCHING MOVIE ON HER TABLET. THIS LENDING ACTIVITIES SUPERVISOR ASKED IF SHE IS OKAY, PATIENT REPLIED, "I AM OKAY".
--- NOTE | 2020-09-03 02:55 | NUR ---
CALL LIGHT ON. pt REQUESTED PRN PAIN PILL. REPORTED 8/10 PAIN MAINLY IN LOWER BACK. HEAT THERAPY WELL. ASSESSMENT DONE. NO CHANGES NOTED. pt SITTING UP IN CHAIR. CALL LIGHT REY IBARRA.
--- NOTE | 2020-09-03 07:37 | NUR ---
this rn received report from monica braga. pt appears to be resting at this time with respirations noted. call light within reach
--- NOTE | 2020-09-03 08:00 | NUR ---
THIS RN IN PTS ROOM TO CHECK ON PT AND GIVE MORNING INSULIN. PT STATES THAT SHE HAS A BIT OF PAIN BUT WILL WAIT ON A PAIN PILL UNTIL A BIT LATER. THIS RN STATED UNDERSTANDING
--- NOTE | 2020-09-03 09:40 | NUR ---
THIS RN IN PTS ROOM TO GIVE HER THE REST OF HER MORNING MEDS AND DO MORNING ASSESSMENT. PT STATES THAT SHE IS A BIT DISCOURAGED BECAUSE SHE GAINED MORE WEIGHT. PT ALSO STATES THAT HER LEGS ARE PAINFUL FROM THE FLUID. PT UP TO CHAIR THIS RN STARTED THE SCD'S AND PROVIDED PT WITH A STOOL TO ELEVATE HER FEET FOR COMFORT. PT STATES THAT SHE HAS NO OTHER CONCERNS THIS AM AND IS HAPPY TO BE BACK ON HER HOME MEDS
--- NOTE | 2020-09-03 10:40 | NUR ---
Spoke with Wanda. [email or web address] to plan for dc to home. Increased swelling in feet.
--- NOTE | 2020-09-03 12:15 | NUR ---
THIS RN IN PTS ROOM TO GIVE PT HER INSULIN. PT SITTING UP IN CHAIR AND ISW EATING LUNCH, STATES THAT SHE NEEDS NOTHING ELSE
--- NOTE | 2020-09-03 13:39 | NUR ---
PT SITTING IN CHAIR, JUST GETTING READY TO MOVE TO BED. PT FELING SOMEWHAT BETTER. INFORMED ME THAT HER DON WILL BE COMING SOON AND PLANS ON LEAVING FOR [place] FOR WORK THIS WEEKEND. PT SHARED FRUSTRATION WITH EDEMA IN FEET, NOTICIBLY SWOLLEN. SCD'S ON, EXPLAINED TO PT THEIR PURPOSE-SHE STATED SHE NEVER QUITE KNEW THEIR PURPOSE. GAVE ENCOURAGEMENT AND BLESSING, WILL FOLLOW NEEDED
--- NOTE | 2020-09-03 14:00 | NUR ---
THIS RN IN PTS ROOM TO DO SECOND ASSESSMENT, I&O, VITALS AND GIVE MEDS. PT SITTING ON EDGE OF BED AT THIS TIME. STATES THAT HER PAIN IS OKAY AND THAT SHE IS READY TO TAKE A NAP FOR A BIT. PT PROVIDED WITH WARM BALNKETS AND HAS CALL LIGHT WITHIN REACH. PT STATES THAT SHE NEEDS NOTHING ELSE AT THIS TIME
--- NOTE | 2020-09-03 18:22 | NUR ---
PATIENT SITTING ON EDGE OF BED, IN ROOM. VITALS AND I&O;S CHARTED. CALL LIGHT IN REACH. NO FURTHER NEEDS AT THIS TIME.
--- NOTE | 2020-09-03 19:44 | NUR ---
RECEIVED REPORT FROM DAY SHIFT RN. PATIENT IS RESTING IN RECLINER. PATIENT DENIES ANY NEEDS AT THIS TIME. CALL LIGHT IN REACH.
--- NOTE | 2020-09-03 21:38 | NUR ---
IN PATIENT ROOM TO RECORD I&O. PATIENT REQUESTED TO HAVE SCDs PUT ON. THIS RETREAD MOLD OPERATOR ASSISTED PATEINT WITH SCD APPLICATION. PATIENT STATES THST SHE IS READY TO SLEEP. CALL LIGHT IN REACH, DENIES ANY FUTHER NEEDS AT THIS TIME.
--- NOTE | 2020-09-03 22:03 | NUR ---
PATIENT ASSESMENT COMPLETED. PATIENTS VITALS TAKEN AND RECORDED. PATIENT IS NOW RESTING IN BED. SCDS IN USE. PATIENT IS ON RA. PATIENTS BS IS WNL. PATIENTS MEDICATIONS GIVEN PER ORDER. PATIENT RATES PAIN AT AN 8/10 IN HER LOW EXT AND BACK. PATIENT GIVEN PRN PAIN MEDICATION PER ORDER. PATIENT GIVEN ICE SHIPS PER REQUEST. RT IN THE ROOM. PATIENT DENIES ANY FURTHER NEEDS. CALL LIGHT IN REACH.
--- NOTE | 2020-09-03 22:52 | NUR ---
PATIENTS SCDS REMOVED. PATIENT UP TO THE RESTROOM. PATIENT WAS ABLE TO VOID. PATIENT IS NOW IN THE RECLINER RESTING. PATIENT DENIES ANY NEEDS AT THIS TIME. CALL LIGHT IN REACH.
--- NOTE | 2020-09-04 01:11 | NUR ---
PATIENT IS RESTING IN BED WITH EYES CLOSED, BREATHING IS EVEN AND UNLABORED. HOME CPAP IN USE. CALL LIGHT IN REACH.
--- NOTE | 2020-09-04 02:57 | NUR ---
PATIENT BACK INTO BED AFTER AMBULATING INDEPENDENTYL TO THE RESTROOM. PATIENTS SCDS PLACED ON. PATIENT DENIES ANY FURTHER NEEDS. CALL LIGHT IN REACH. PATIENT PLACED OWN CPAP ON.
--- NOTE | 2020-09-04 04:56 | NUR ---
PATIENTS SCDS REMOVED. PATIENT AMBULATED TO THE RESTROOM. PATIENT WAS ABLE TO VOID. PATIENT IS NOW RESTING IN RECLINER. VITALS TAKEN AND RECORDED. INTAKE AND OUTPUT RECORDED. PATIENT GIVEN PRN PAIN MEDICATION FOR 8/10 PAIN IN HER LEGS AND BACK. PATIENT PROVIDED WITH ICE CHIPS AND A WARM BLANKET. NO FURTHER NEEDS NOTED. CALL LIGHT IN REACH.
--- NOTE | 2020-09-04 04:58 | NUR ---
PATIENT RESTED ON AND OFF THROUGHOUT THE SHIFT. PATIENT IS ON A 60G CARB/2GM NA LIMIT DIET. PATIENT IS TOLERATING DIET WELL, NO NAUSEA NOTED. PATIENT IS INDEPENDENT IN THE ROOM. PATIENT IS ON RA. PATIENT IS WORKING WITH PT. PATIENT WEARS HOME CPAP AT NIGHT. PATIENT HAS X2 IVS AND IS SL. PATIENT IS AAOX4 AND USES HER CALL LIGHT APPROPTRIATELY. PATIENT HAS 2T EDEMA IN BILAT LOW EXT AND FEET ARE ELEVATED WHEN POSSIBLE. SCDS IN USE WHILE IN BED.
--- NOTE | 2020-09-04 07:21 | NUR ---
REPORT RECIEVED FROM SHEARING MACHINE OPERATOR RNROSE MARIE.
--- NOTE | 2020-09-04 07:46 | NUR ---
MORNING ASSESSMENT DONE. PATIENT REPORTS CHRONIC PAIN REMAINS THE SAME AND WOULD LIKE PAIN MEDICATION WITH BREAKFAST. PATIENT IS UP TO CHAIR WITH LEFT LEG ELEVATED ON STOOL. PATIENT DENIES OTHER NEEDS, IS HOPING IF DISCHARGING TODAY THAT SHE CAN LEAVE AT 1300 AND GO HAVE HER COVID VACCINATION 1320 BEFORE GOING HOME.
[2020-09-04] MEDS ORDERED: DOXYCYCLINE HY100 MG PO (09:25)
--- NOTE | 2020-09-04 09:33 | NUR ---
MORNING MEDICATIONS GIVEN, SEVERAL ISSUES WITH COMPUTER AND MEDICATIONS SCANNING WERE ENCOUNTERED, BUT ALL 0900 MEDICATIONS GIVEN
--- NOTE | 2020-09-04 10:23 | NUR ---
PATIENT UP TO TAKE A SHOWER. PLAN TO GIVE DISCHARGE PAPERS SOON.
== END 2020-09-04 10:35 | disposition home or self-care (01) | DRG 291 ==
LOC: ED 09:13 → CCU 11:55 → MS 08-31 10:30
PROVIDERS: ADMIT Internal Medicine; ATTEND Internal Medicine
DX: I13.0 Hypertensive heart and chronic kidney disease with heart failure and stage 1 through stage 4 chronic kidney disease, or unspecified chronic kidney disease (principal); I50.33 Acute on chronic diastolic (congestive) heart failure; N17.9 Acute kidney failure, unspecified; L03.115 Cellulitis of right lower limb; D61.818 Other pancytopenia; Z68.44 Body mass index [BMI] 60.0-69.9, adult; Z20.822 Contact with and (suspected) exposure to COVID-19; E11.22 Type 2 diabetes mellitus with diabetic chronic kidney disease; N18.30 Chronic kidney disease, stage 3 unspecified; E66.01 Morbid (severe) obesity due to excess calories; J44.9 Chronic obstructive pulmonary disease, unspecified; G47.33 Obstructive sleep apnea (adult) (pediatric); E03.9 Hypothyroidism, unspecified; F39 Unspecified mood [affective] disorder; B96.81 Helicobacter pylori [H. pylori] as the cause of diseases classified elsewhere; G25.81 Restless legs syndrome; K74.60 Unspecified cirrhosis of liver; K76.0 Fatty (change of) liver, not elsewhere classified; K76.1 Chronic passive congestion of liver; Z87.891 Personal history of nicotine dependence; Z88.5 Allergy status to narcotic agent; Z79.899 Other long term (current) drug therapy; Z79.4 Long term (current) use of insulin; Z79.51 Long term (current) use of inhaled steroids
CPT/HCPCS: 36415; 36569; 71045; 76882; 80048; 80053; 80076; 83036; 83735; 83880; 85025; 86850; 86900; 86901; 87521; 87522; 94640; 94664; 94760; 97162; C1751; C9113; C9803; J1815; J1940; J3370; J3480; J3490; J7060; J7121; P9612; U0003

== ENCOUNTER 2020-09-17 17:46 | Emergency (ER) | payer BC, MEDICARE, OTHER ==
[~2020-09-17] VITALS: Ht 162.6 cm; Wt 162.4 kg
[~2020-09-17 17:46] MED LIST changes: +AMOXICILLIN500 MG PO; +BASAGLAR K100 UNIT/1 SUB-Q; +BENZONATATE100 MG PO; +CLARITHROMYCIN500 MG PO; +DOXYCYCLINE HY100 MG PO; +MAGNESIUM400 MG PO; +METAMUCIL FIBE3.4 GM PO; +OZEMPIC1 MG/0.75 SUB-Q; +PANTOPRAZOLE SO40 MG PO; +TORSEMIDE20 MG PO; +VENTOLIN HFA18 GM INH
--- OUTSIDE RECORDS SUMMARY | 2020-09-17 17:50 | XMS ---
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 Care History Medical/Surgical 08/07/2020 [facility] Increased swelling of lower legs and shortness of breath and anemia. Patient stated there was\T\nbsp; a 40 pond weight gain in a month. 06/01/2019 [facility] Patient has follow up with Garret Grossman on 07/19/2019 2019 [facility] - PATIENT HAS A CERTIFIED PEDIATRIC NURSE PRACTITIONER-DR LULA COLLIER IN [place], [place]. PHONE # [phone]. - Patient is currently established with [facility]. If patient is seen in the ED during business hours. Please contact CHWs at [facility]. Care Recommendation: If this patient has [...] care. E.D. VISIT COUNT (12 MO.) 1 [facility] 4 [facility] TOTAL 5 NOTE: Visits indicate total known visits. ED/C VISIT TRACKING (12 MO.) 09/17/2020 17:47 [facility] [place] TYPE: Emergency COMPLAINT: - NOT FEELING WELL 08/26/2020 09:14 [facility] [place] TYPE: Emergency COMPLAINT: - BLOODY STOOL 08/12/2020 16:04 [facility] TYPE: Emergency DIAGNOSES: - Anemia, unspecified - Leg Swelling - Acute kidney failure, unspecified - Shortness of breath 08/05/2020 12:54 [facility] [place] TYPE: Emergency COMPLAINT: - SOB, LEG SWELLING DIAGNOSES: - Dyspnea, unspecified - Other shelter (current) drug therapy - Personal history of nicotine dependence - Cellulitis of right lower limb - Anemia, unspecified - Chronic kidney disease, unspecified - [facility] (current) use of insulin - Allergy status to narcotic agent - Chronic obstructive pulmonary disease, unspecified - Type 2 diabetes mellitus without complications - Unspecified asthma, uncomplicated - Allergy status to other drugs, medicaments and biological substances - Morbid (severe) obesity due to excess calories - rodent exterminator (current) use of systemic steroids - Essential (primary) hypertension 07/09/2020 07:21 [facility] [place] TYPE: Emergency COMPLAINT: - DIFFICULTY BREATHING DIAGNOSES: - Type 2 diabetes mellitus without complications - [facility] (current) use of insulin - Allergy status to other drugs, medicaments and biological substances - Chronic obstructive pulmonary disease with (acute) exacerbation - Heart failure, unspecified - Personal history of nicotine dependence - Hypertensive heart disease with heart failure - Dyspnea, unspecified - Other shelter (current) drug therapy - Allergy status to narcotic agent - Disorder of kidney and ureter, unspecified INPATIENT VISIT TRACKING (12 MO.) 08/26/2020 11:55 [facility] [place] TYPE: Medical Surgical COMPLAINT: - CHF DECOMPENSATION DIAGNOSES: - Chronic kidney disease, stage 3 unspecified - Allergy status to narcotic agent - Hypertensive heart and chronic kidney disease with heart failure and stage 1 through stage 4 chronic kidney disease, or unspecified chronic kidney disease - rodent exterminator (current) use of insulin - Acute kidney failure, unspecified - Cellulitis of right lower limb - Helicobacter pylori [H. pylori] as the cause of diseases classified elsewhere - Fatty (change of) liver, not elsewhere classified - Body mass index [BMI] 60.0-69.9, adult - Acute on chronic diastolic (congestive) heart failure - Morbid (severe) obesity due to excess calories - Personal history of nicotine dependence - Restless legs syndrome - Chronic passive congestion of liver - Other pancytopenia - Other shelter (current) drug therapy - Hypothyroidism, unspecified - Chronic obstructive pulmonary disease, unspecified - rodent exterminator (current) use of inhaled steroids - Obstructive sleep apnea (adult) (pediatric) - Unspecified cirrhosis of liver - Unspecified mood [affective] disorder - Type 2 diabetes mellitus with diabetic chronic kidney disease 08/12/2020 16:[facility] TYPE: Internal Medicine DIAGNOSES: - Essential (primary) hypertension - Acute posthemorrhagic anemia - Dyspnea, unspecified - Morbid (severe) obesity due to excess calories - Shortness of breath - Hypomagnesemia - Acute kidney failure, unspecified - Iron deficiency anemia secondary to blood loss (chronic) - Generalized edema - Anemia, unspecified - Other emt intermediate (current) drug therapy - Unspecified ovarian cyst, unspecified side - Other fecal abnormalities - Localized edema - Fluid overload, unspecified - Alkalosis - Polyp of stomach and duodenum - Chronic kidney disease, stage 3b - Body mass index [BMI] 50.0-59.9, adult - Polyp of colon - Hypokalemia [email or web address]
[2020-09-17] MEDS ORDERED: TORSEMIDE20 MG PO (18:10)
[2020-09-17] MEDS ORDERED: PREDNISONE50 MG PO (22:10)
--- NOTE | 2020-09-18 13:46 | EKG ---
[facility] [address] [place] [address] Signed Sinus rhythm with marked sinus arrhythmia Low voltage QRS Nonspecific ST abnormality Abnormal ECG When compared with ECG of 05-AUG-2020 13:44, No significant change was found Confirmed by KYLE MARTÍNEZ MD ([id number]) on 09/18/2020 1:46:25 PM Electronically Signed By: KYLE MARTÍNEZ MD 09/18/20 1346 PATIENT NAME: MODESTA CRAWFORD Electrocardiogram DATE OF : 53 PHYSICIAN: KYLE MARTÍNEZ MD REPORT #: [id number] REPORT IS CONFIDENTIAL AND NOT TO BE RELEASED WITHOUT AUTHORIZATION
== END 2020-09-17 22:35 | disposition home or self-care (01) ==
LOC: ED 17:46
DX: J44.1 Chronic obstructive pulmonary disease with (acute) exacerbation (principal); I12.9 Hypertensive chronic kidney disease with stage 1 through stage 4 chronic kidney disease, or unspecified chronic kidney disease; E11.22 Type 2 diabetes mellitus with diabetic chronic kidney disease; N18.9 Chronic kidney disease, unspecified; D64.9 Anemia, unspecified; R63.5 Abnormal weight gain; Z20.822 Contact with and (suspected) exposure to COVID-19; Z88.8 Allergy status to other drugs, medicaments and biological substances; Z88.5 Allergy status to narcotic agent; Z79.4 Long term (current) use of insulin; Z79.899 Other long term (current) drug therapy
CPT/HCPCS: 71045; 74176; 80053; 81001; 83735; 83880; 84484; 85025; 93005; 93010; 94640; 94644; 99285-25; C9803; J2930; U0003

== ENCOUNTER 2020-10-14 23:36 | Inpatient (IN) | payer MEDICARE, OTHER ==
[~2020-10-14] VITALS: Ht 162.6 cm; Wt 152.2 kg
[~2020-10-14 23:36] MED LIST changes: +FIBER0.52 GM PO; -METAMUCIL FIBE3.4 GM PO; +PREDNISONE50 MG PO
--- OUTSIDE RECORDS SUMMARY | 2020-10-14 23:38 | XMS ---
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 Care History Medical/Surgical 08/07/2020 [facility] Increased swelling of lower legs and shortness of breath and anemia. Patient stated there was\T\nbsp; a 40 pond weight gain in a month. 06/01/2019 [facility] Patient has follow up with Garret Grossman on 07/19/2019 2019 [facility] - PATIENT HAS A SHOE PARTS CASER-DR LULA COLLIER IN [place], [place]. PHONE # . - Patient is currently established with [facility]. If patient is seen in the ED during business hours. Please contact CHWs at [facility]. Care Recommendation: If this patient has [...] care. E.D. VISIT COUNT (12 MO.) 1 [facility] 6 NOTE: Visits indicate total known visits. ED/C VISIT TRACKING (12 MO.) 10/14/2020 23:37 [facility] [place] TYPE: Emergency COMPLAINT: - DIFFICULTY BREATHING,FEVER 09/17/2020 17:47 [facility] [place] TYPE: Emergency COMPLAINT: - NOT FEELING WELL DIAGNOSES: - Allergy status to other drugs, medicaments and biological substances - residential (current) use of insulin - Chronic kidney disease, unspecified - Other [facility] (current) drug therapy - Chronic obstructive pulmonary disease with (acute) exacerbation - Allergy status to narcotic agent - Anemia, unspecified - Type 2 diabetes mellitus with diabetic chronic kidney disease - Hypertensive chronic kidney disease with stage 1 through stage 4 chronic kidney disease, or unspecified chronic kidney disease - Abnormal weight gain 08/26/2020 09:14 [facility] [place] TYPE: Emergency COMPLAINT: - BLOODY STOOL 08/12/2020 16:04 [facility] TYPE: Emergency DIAGNOSES: - Anemia, unspecified - Leg Swelling - Acute kidney failure, unspecified - Shortness of breath 08/05/2020 12:54 [facility] [place] TYPE: Emergency COMPLAINT: - SOB, LEG SWELLING DIAGNOSES: - Dyspnea, unspecified - Other [facility] (current) drug therapy - Personal history of nicotine dependence - Cellulitis of right lower limb - Anemia, unspecified - Chronic kidney disease, unspecified - superintendent container terminal (current) use of insulin - Allergy status to narcotic agent - Chronic obstructive pulmonary disease, unspecified - Type 2 diabetes mellitus without complications - Unspecified asthma, uncomplicated - Allergy status to other drugs, medicaments and biological substances - Morbid (severe) obesity due to excess calories - superintendent container terminal (current) use of systemic steroids - Essential [...] heart failure - Dyspnea, unspecified - Other [facility] (current) drug therapy - Allergy status to [...] disease, or unspecified chronic kidney disease - superintendent container terminal (current) use of insulin - Acute kidney [...] of liver - Other pancytopenia - Other [facility] (current) drug therapy - Hypothyroidism, unspecified - Chronic obstructive pulmonary disease, unspecified - residential (current) use of inhaled steroids - Obstructive sleep apnea (adult) (pediatric) - Unspecified cirrhosis of liver - Unspecified mood [affective] disorder - Type 2 diabetes mellitus with diabetic chronic kidney disease 08/12/2020 16:04 [facility] TYPE: Internal Medicine DIAGNOSES: - Essential (primary) hypertension - Acute posthemorrhagic anemia - Dyspnea, unspecified - Morbid (severe) obesity due to excess calories - Shortness of breath - Hypomagnesemia - Acute kidney failure, unspecified - Iron deficiency anemia secondary to blood loss (chronic) - Generalized edema - Anemia, unspecified - Other terminal block assembler (current) drug therapy - Unspecified ovarian cyst, unspecified side - Other fecal abnormalities - Localized edema - Fluid overload, unspecified - Alkalosis - Polyp of stomach and duodenum - Chronic kidney disease, stage 3b - Body mass index [BMI] 50.0-59.9, adult - Polyp of colon - Hypokalemia [email or web address]
[2020-10-14] MEDS ORDERED: ADVAIR HFA 230-12 GM INH (23:51)
--- NOTE | 2020-10-15 03:09 | NUR ---
ADMIT PT FROM ED PER STRETCHER AT 0200. PT ABLE TO AMB TO BR TO VOID, MILDLY SOB ON WALKING BACK TO BED. NO SOB AT REST. HAD PITTING EDEMA TO ABD. IS MOIST UNDER SKIN FOLDS BUT NO REDNESS AT THIS TIME. LEGS ARE BETTY IN COLOR WITH THICKENED SKIN. PT C/O BEING CHRONICALLY COLD, GIVEN WARM BLANKETS.
--- NOTE | 2020-10-15 04:46 | NUR ---
HAS BEEN UP TO VOID X2 SINCE ADMIT. IS NOW UP IN RECLINER. LESS SOB THAN BEFORE. TAKING ICE CHIPS. HAS BEEN ON FLUID RESTRICTIONS IN THE PAST AND IS AWARE OF MONITORING FLUID INTAKE.
--- NOTE | 2020-10-15 05:22 | NUR ---
PT REQUESTING A PAIN PILL. USUALLY TAKES HYDROCODONE/TYLENOL 10/. DR MARTÍNEZ CALLED AND ORDER RECIEVED.
--- NOTE | 2020-10-15 06:21 | NUR ---
ASSSISTED BACK TO BED WITH KPAD TO BACK PT CHRONICALLY COLD. GIVEN MORE WARM BLANKETS. GIVEN 1 NORCO 10/325 PO PER Yuliya PALOMO RN.
--- NOTE | 2020-10-15 07:30 | NUR ---
REOPRT RECIEVED. PATIENT C/O LEFT HIP PAIN. OOB TO CHAIR. KPAD TO BACK IN PLACE. BUMEX GTT PATENT. STANDING WEIGHT DONE. IS STABLE ON FEET. DENIES DIZZINESS WITH MOVEMENT. TALKED WITH PATIENT ABOUT POC FOR DAY, INDICATES UNDERSTANDING. IS GOOD SPIRITS.
--- NOTE | 2020-10-15 07:40 | NUR ---
Spoke with Rebeca and she states she lives in 1 story house with her spouse, son, and daughter. There is a ramp into the home. Family as- sist with student ministries director, cooking, shopping, cleaning. Pt denies financial issues, but has had problems in the past. She states she gained 6 pounds in a week and began to fill with fluid. Plans on dc to home when cleared medically. She has used [facility] and food gauthier in the past, but no longer needs. Spouse works construction, so insurance changes with each job.
--- NOTE | 2020-10-15 08:00 | NUR ---
ASSESSMENT DONE. CONTINUES TO SIT IN CHAIR. READY FOR BREAKFAST.
--- NOTE | 2020-10-15 09:28 | NUR ---
BACK TO BED. CONTINUERS TO C/O LEFT HIP PAIN. RATES 01/28.
--- NOTE | 2020-10-15 10:14 | NUR ---
DR. MARTÍNEZ IN ROOM TO SEE PATIENT. PATIENT WANTING TO HAVE A GRAF CATHETER PLACED NOW DUE TO FREQUENCY OF VOIDING WHILE ON BUMEX GTT AND INABILITY TO "GET ALL THE PEE OUT." PT'S HOME CPAP SET UP FOR PATIENT.
--- NOTE | 2020-10-15 10:40 | NUR ---
NORCO GIVEN FOR LEFT HIP PAIN. BUMEX GTT CONTINUES TO INFUSE AT 0.5 MG/HR 10 MG IN 40 ML TRA 2 ML/HR. IS NOW ON FLUID RESTRICTION OF 1800 ML Q 24 HRS.
--- NOTE | 2020-10-15 12:30 | NUR ---
SITTING UP IN CHAIR FOR LUNCH. ASSESSMENT UNCHANGED. CONTINUES ON BUMEX GTT AT 0.5 MG/HR. FLUID RESTRICTION OF 1800 ML PER 24 HRS. PATIENT IS AWARE.
--- NOTE | 2020-10-15 14:34 | NUR ---
MED REC COMPLETE
--- NOTE | 2020-10-15 14:51 | NUR ---
PT ALERT, ORIENTED AND SITTING IN CHAIR. PT SAID SHE IS FEELING MUCH BETTER RECEIVED A NEW MED THAT PT FEELS IS DOING WONDERS FOR HER. HAD GOOD VISIT, PT REQUESTED PRAYER. WILL FOLLOW NEEDED
--- NOTE | 2020-10-15 15:00 | NUR ---
CONTINUES TO USE KPAD FOR COMFORT. RESTING IN BED. NO DISTRESS NOTED.
--- NOTE | 2020-10-15 16:00 | NUR ---
ASSESSMENT UNCHANGE. READY TO TAKE A NAP, CPAP IN PLACE.
--- NOTE | 2020-10-15 18:16 | NUR ---
NELY JEROME FOR LEFT HIP PAIN. IN CHAIR EATING DINNER.
--- NOTE | 2020-10-15 18:55 | NUR ---
TOOK DINNER WELL. SITTING IN CHAIR WATCHING TV.
--- NOTE | 2020-10-15 20:00 | NUR ---
SHIFT REPORT RECEIVED FROM YEISON BARRON. ASSESSMENT COMPLETED. PT IS ALERT/ORIENTED, RESTING IN BED. DENIES PAIN. LUNGS CLEAR/DIM, RA. HR REGULAR. BOWEL TONES HYPOACTIVE, DENIES NAUSEA. SKIN GROSSLY INTACT, PITTING EDEMA FROM BLE UP TO ABDOMEN. SKIN MOIST IN FOLDS, DESENEX POWDER APPLIED. GRAF PATENT, CATH CARE PROVIDED. IV PATENT, DRESSING CHANGED, BUMEX INFUSING PER ORDERS. CB, 5 UNITS HUMALOG ADMINISTERED. PT HAS HOME CPAP AT BEDSIDE. DENIES REQUESTS AT THIS TIME, CALL LIGHT AND BELONGINGS WITHIN REACH.
--- NOTE | 2020-10-15 20:56 | NUR ---
NEW ORDERS RECEIVED, 30 UNITS LANTUS AND ORAL POTASSIUM REPLACEMENT GIVEN. PT CONTINUES TO DENY NEEDS AT THIS TIME.
--- NOTE | 2020-10-15 21:59 | NUR ---
LESIA EMPTIED. PT CURRENTLY SLEEPING WITH HOME CPAP IN PLACE. APPEARS COMFORTABLE, NO APPARENT DISTRESS.
--- NOTE | 2020-10-15 23:37 | NUR ---
PT CALLED TO REPORT LEFT HIP PAIN. PRN NORCO GIVEN AND PT MOVED TO CHAIR PER REQUEST. ASSESSMENT COMPLETED AND UNCHANGED. PT DENIES FURTHER REQUESTS AT THIS TIME, CALL LIGHT AND BELONGINGS WITHIN REACH.
--- NOTE | 2020-10-16 01:18 | NUR ---
ASSISTED BACK TO BED FROM CHAIR. MILDLY SOB WITH EXERTION. STATES LEGS ARE SORE FROM NOT WALKING MUCH USUAL. TAKING SMALL AMTS ICE CHIPS.
--- NOTE | 2020-10-16 03:03 | NUR ---
PT SLEEPING, HOME CPAP IN PLACE. HR:76, RR:18. NO APPARENT DISTRESS.
--- NOTE | 2020-10-16 04:00 | NUR ---
PT CALLED TO REPORT THAT SHE WOKE UP FEELING SOB. ASSISTED PT TO SIT UP AT SIDE OF BED AND R.T. NOW IN TO GIVE PRN TREATMENT (SEE EMAR). PT DENIES PAIN. LUNGS DIM, UPPER AIRWAY WHEEZE NOTED. PT REPORTS IMPROVEMENT TO BREATHING AFTER INHALER. STANDING WEIGHT OBTAINED, DOWN 2 KG FROM YESTERDAY. IV SLIGHTLY LEAKY, BUT BLOOD RETURN IS PRESENT, REDRESSED SITE. GRAF PATENT, DRAINING FREELY. PT NOW SITTING UP IN CHAIR PER REQUEST, CALL LIGHT AND BELONGINGS WITHIN REACH.
--- NOTE | 2020-10-16 06:31 | NUR ---
PT'S IV WAS LEAKING AND NO LONGER HAD BLOOD RETURN. IV D/C'D, CATHETER TIP INTACT. 24G IV STARTED IN RIGHT HAND ON 2ND ATTEMPT, PT TOLERATED WELL. PRN NORCO GIVEN FOR 7/10 LEFT HIP PAIN. PT REMAINS SITTING UP IN CHAIR PLAYING ON TABLET. DENIES NEEDS AT THIS TIME, CALL LIGHT AND BELONGINGS WITHIN REACH.
--- NOTE | 2020-10-16 08:45 | NUR ---
PATIENT UP IN CHAIR THIS AM AND STATES SHE IS DOING WELL. BREAKFAST ORDERED AND PATIENT WAITING ON THIS AT THIS TIME. PT REMAINS ON ROOM AIR. BUMEX GTT CONTINUES AT 2 ML/HR = 0.5 MG/HR. GRAF DRAINING CLEAR YELLOW URINE. HR IN THE 60-70s.
--- NOTE | 2020-10-16 09:32 | NUR ---
PATIENT BACK TO BED WITH SBA. PT WANTING TO REST AFTER BREAKFAST. ASSESSMENT AND VITALS COMPLETE, WELL SHIPPING CLERK PACKING. PT STATES SHE IS TIRED, BUT OVERALL IS FEELING BETTER. CONTINUE TO MONITOR. PT PUTS ON HER OWN CPAP.
--- NOTE | 2020-10-16 13:29 | NUR ---
DR. MARTÍNEZ IN ROOM WITH PATIENT AT THIS TIME. PLAN OF CARE BEING DISCUSSED. PT UP IN CHAIR AT THIS TIME. PT REMAINS ON ROOM AIR AND SPO2 IS 96%.
--- NOTE | 2020-10-16 14:40 | NUR ---
PATIENT'S IN ROOM AND PATIENT UP IN CHAIR. ATTEMPTS TO HAVE A BM IN BATHROOM BUT UNABLE TO. PT WILL HAVE A REPEAT ECHO EITHER TODAY OR TOMORROW. AM LABS. PT WILL REMAIN ON BUMEX GTT AT 2 ML/HR=0.5 MG/HR. GRAF CONTINUES TO DRAIN CLEAR YELLOW URINE. PT REMAISN ON ROOM AIR. CALL LIGHT WITHIN REACH.
--- NOTE | 2020-10-16 15:02 | NUR ---
PT ALERT, ORIENTED AND SITTING IN CHAIR WITH LEGS UP. PT IN GOOD SPIRITS, HER IS IN RM VISITING. PT SLEPT WELL, FEELS IMPROVEMENT IN HER CONDITION. GAVE BLESSING, WILL FOLLOW NEEDED
--- NOTE | 2020-10-16 15:03 | NUR ---
Heart Failure RN Note: Reviewed previous information with patient. She has been utilizing scales given in past visit. Explored diet problem due to living with others. Family members continue to do all of the shopping and cooking. Her daughter in [place] plans on making and delivering meals specific for Rebeca's needs. I have asked that she have her daughter contact me so I can give her more tools for lower sodium cooking. Encouraged to follow up with cardiology and or nephrology within a week of discharge. Patient agrees to plan. Spouse at bedside during discussion.
--- NOTE | 2020-10-16 15:12 | NUR ---
UPPER TRIMMER IN ROOM TO SEE PATIENT AT THIS TIME. PATIENT GIVEN BED BATH WITH HELP OF METAPHYSICIAN. PT'S GROIN AND PANNUS CLEANED WELL AND ANTIFUNGAL POWDER REAPPLIED. PILLOW CASES PLACED UNDER PANNUS. PT DENIES FURTHER NEEDS.
--- NOTE | 2020-10-16 15:18 | EKG ---
[facility] [address] [place] [address] Signed Normal sinus rhythm Low voltage QRS Nonspecific ST abnormality Abnormal ECG When compared with ECG of 17-SEP-2020 18:34, No significant change was found Confirmed by KYLE MARTÍNEZ MD ([id number]) on 10/16/2020 3:18:19 PM Electronically Signed By: KYLE MARTÍNEZ MD 10/16/20 1518 PATIENT NAME: MODESTA CRAWFORD Electrocardiogram DATE OF : 53 PHYSICIAN: KYLE MARTÍNEZ MD REPORT #: [id number] REPORT IS CONFIDENTIAL AND NOT TO BE RELEASED WITHOUT AUTHORIZATION
--- NOTE | 2020-10-16 15:55 | NUR ---
No change in plan for discharge.
--- NOTE | 2020-10-16 18:11 | NUR ---
PATIENT BACK TO BED AFTER DINNER. GRAF EMPTIED FOR 1475 OVER THE LAST 4 HRS. BUMEX GTT CONTINUES AT 2 ML/HR = 0.5 MG/HR. PT GIVEN WARM BLANKETS, HEATING PADS X 2 FOR C/O ALWAYS FEELING COLD. CALL LIGHT WITHIN REACH. NO FURTHER NEEDS.
--- NOTE | 2020-10-16 18:48 | NUR ---
BMP AND MAG COLLECTED ON PATIENT AND SENT TO LAB AFTER DISCUSSING WITH DR. MARTÍNEZ PATIENT'S URINE OUTPUT. PT HAS 600 ML LEFT FOR THE DAY ON HER FLUID RESTRICTION AND SHE IS AWARE OF THIS. PT RESTING IN BED.
--- NOTE | 2020-10-16 19:45 | NUR ---
SHIFT REPORT RECEIVED FROM YEISON VILLASENOR. PT CALLED AT THIS TIME REQUESTING TO MOVE BACK TO BED. ASSISTED WITH SBA. PT REPORTS HER PAIN IS RESOLVING SINCE RECEVING PRN PAIN MED. PT DENIES FURTHER NEEDS AT THIS TIME, CALL LIGHT AND BELONGINGS WITHIN REACH.
--- NOTE | 2020-10-16 21:00 | NUR ---
ASSESSMENT COMPLETED. PT REQUESTS TO MOVE BACK TO CHAIR DUE TO LEFT HIP DISCOMFORT. PT AMBULATED TO BATHROOM FOR LARGE BM AND IS NOW SITTING UP IN CHAIR. SOB WITH ACTIVITY, RESOLVES QUICKLY WITH REST, DENIES CHEST PAIN. LUNGS DIM, RA. HR REGULAR. BOWEL TONES ACTIVE, DENIES NAUSEA. SKIN IS VERY DRY AND ITCHY, A&D OINTMENT APPLIED TO FEET AND LEGS PER REQUEST. IV SITES INTACT AND PATENT. GRAF PATENT. CB, 7 UNITS HUMALOG AND 45 UNITS LANTUS ADMINISTERED. DEEP EDEMA REMAINS IN LEGS UP TO ABDOMEN, BUMEX DRIP CONTINUES ORDERED. PT DENIES FURTHER REQUESTS AT THIS TIME, CALL LIGHT AND BELONGINGS WITHIN REACH.
--- NOTE | 2020-10-16 22:42 | NUR ---
PT BACK TO BED, TOLERATED ACTIVITY WELL. CATH CARE PROVIDED AND ANTIFUNGAL POWDER APPLIED TO SKIN FOLDS. PT HAS HOME CPAP WITHIN REACH. NO FURTHER REQUESTS AT THIS TIME.
--- NOTE | 2020-10-17 00:33 | NUR ---
PT SLEEPING SOUNDLY IN BED, HOME CPAP IN PLACE. NO APPARENT DISTRESS, RESPIRATIONS EVEN AND UNLABORED. RR:19, SPO2:89%, HR:76. GRAF REMAINS PATENT, BUMX DRIP UNCHANGED.
--- NOTE | 2020-10-17 00:57 | NUR ---
PT WOKE UP AND CALLED TO REPORT 7/10 LEFT HIP PAIN, PRN NORCO GIVEN AND PT TRANSFERRED TO CHAIR FOR CHANGE IN POSITION. LUNGS REMAIN DIM, RA, DENIES SOB AT THIS TIME AND TOLERATED ACTIVITY WELL. DENIES CHEST PAIN AND NAUSEA WELL. REMAINDER OF ASSESSMENT UNCHANGED. PT DENIES FURTHER REQUESTS, CALL LIGHT AND BELONGINGS WITHIN REACH.
--- NOTE | 2020-10-17 01:45 | NUR ---
PT BACK TO BED PER REQUEST. BELONGINGS AND CALL LIGHT WITHIN REACH.
--- NOTE | 2020-10-17 02:25 | NUR ---
PT SLEEPING SOUNDLY AT THIS TIME, CPAP OFF, SPO2:90%, RR:15, HR:70'S. NEW BAG OF BUMEX STARTED, CONTINUES AT SAME RATE. GRAF EMPTIED.
--- NOTE | 2020-10-17 03:50 | NUR ---
ASSESSMENT COMPLETED. PT DENIES PAIN, SOB, AND NAUSEA. BUMEX CONTINUES TO INFUSE ORDERED. GRAF PATENT. EDEMA UNCHANGED. PT DENIES FURTHER REQUESTS, CALL LIGHT WITHIN REACH.
--- NOTE | 2020-10-17 05:54 | NUR ---
PT UP TO CHAIR PER REQUEST. NOTICED THAT DRESSING TO LEFT UPPER ARM IV HAD COME LOOSE. DRESSING CHANGED, IV REMAINS PATENT. PT DENIES PAIN AT THIS TIME, DENIES NEEDS. CALL LIGHT AND BELONGINGS WITHIN REACH. BREAKFAST ORDER RECEIVED.
--- NOTE | 2020-10-17 06:10 | NUR ---
IN TO GIVE THYROID MEDICATION, PT REPORTS 7/10 LEFT HIP PAIN. PRN NORCO GIVEN AT THIS TIME. NO FURTHER REQUESTS/COMPLAINTS.
--- NOTE | 2020-10-17 09:04 | NUR ---
PT IS SITTING UP AT BED SIDE, ALERT AND ORIENTED. DOES NOT REPORT ANY NAUSEA OR PAIN. REPORTS DISCOMFORT WHEN CAUGHING. PT ABLE TO FOLLOW DIRECTIONS WELL. LEGS ARE ELEVATED AT 30 DEGREES, HOB 45. OFTEN FALLS ASLEEP WHEN NOT BEING SPOKEN TO BUT EASY TO AROUSE. PT IS SLEEPING. CALL LIGHT WITHI REACH.
--- NOTE | 2020-10-17 09:37 | NUR ---
Heart Failure RN Note: Spoke at length on phone with daughter Jelly. She is eager to assist her mother in improving her diet by decreasing salt and added sugar content. She reports her parents are used to picking up fast food for meals. Jlely cooks from scratch and plans on bringing meals to patient 3 times a week. Discussed sodium amounts, flavor options, and high sodium content processed foods. She will be visiting today. I will leave HF education information for her including:low sodium grocery list, better frozen meal options, DASH Diet, better restaurant options, use of vinegar/herbs.
--- NOTE | 2020-10-17 11:47 | NUR ---
PT REPORTS PAIN IN HIP, PRN PAIN MEDS GIVEN. PT IS ABLE TO AMBULATE WITH SBA FROM CHAIR BACK TO BED. HEATING PAD PLACED ON BACK, LEGS ELEVATED. DENIES NAUSEA. WARM BLANKET PLACED. CALL LIGHT WITHIN REACH.
--- NOTE | 2020-10-17 12:51 | NUR ---
PT ABLE TO AMBULATE TO CHAIR WITH SBA. PT SITTING UP EATING LUNCH INDEPENDENTLY. CALL LIGHT IN REACH.
--- NOTE | 2020-10-17 13:00 | NUR ---
Spoke with Rebeca, she states she is feeling better. Has lost 6#s. Plans on dc to home when cleared medically.
--- NOTE | 2020-10-17 14:09 | NUR ---
PT IS ASLEEP IN CHAIR, DID NOT DISTURB. WILL CHECK BACK
--- NOTE | 2020-10-17 15:01 | NUR ---
PT RECEIVED BED BATH, CAROLE CARE AND CATHETER CARE WITH [facility] NURSING STUDENTS AND MARIUSZ LATHAM. PT WAS ABLE TO AMBULATE WITH STAND BY ASSIST DOWN THE [address] WAY. MASK WORN DURING AMBULATION. PT SHOWS INCREASED BREATHING DURING ABULATORY ACTIVITIES, BUT PT STATES TOLERABLE. PT ABLE TO AMBULATE BACK TO ROOM CHAIR WITH SBA.ICE CHIPS PLACED AT BEDSIDE TABLE. CALL LIGHT WITHIN REACH.
--- NOTE | 2020-10-17 15:08 | NUR ---
PT ABLE TO TOLERATE REPOSTINING DURING BED BATH AND OTHER CARES. PT COOPERATIVE AND ABLE TO VERBALLY EXPRESS IF DISCOMFORT OCCURED DURING THE PROCESS. DEODORANT UNDER ARMS PALCED, LOTION ON LEGS BILATERALLY AND NEW GOWN PLACED. PT ABLE TO WASH HER OWN FACE WITH PROVIDED WASH CLOTH.
--- NOTE | 2020-10-17 16:49 | NUR ---
PT WAS ABLE TO AMBULATE BACK TO BED FROM CHAIR WITH SBA. HEATING PAD PLACED ON BACK. PATIENT IN LYING DOWN WITH HOME CPAP MACHINE IN PLACE. CALL LIGHT WITHIN REACH. DENIES ANY PAIN OR NAUSEA.
--- NOTE | 2020-10-17 19:30 | NUR ---
REPORT RECEIVED FROM [facility]. CARE ASSUMED AT THIS TIME.
--- NOTE | 2020-10-17 20:08 | NUR ---
IN TO ASSESS PATIENT VITAL SIGNS. PATIENT IS RESTING IN BED WITH LEGS ELEVATED. PATIENT HAS SOME COMPLAINT OF LEG DISCOMFORT AND "RESTLESSNESS". PATIENT LEGS REPOSITIONED. PT HR IN THE 70'S, PT RESPIRATIONS EVEN AND UNLABORED. PT OXYGEN SATURATION 93% ON ROOM AIR, HOB ELEVATED. PATIENT HAS NO FURTHER COMPLAINTS AT THIS TIME.
--- NOTE | 2020-10-17 21:00 | NUR ---
IN TO ASSIST PATIENT TO BATHROOM AND THEN TO CHAIR. PATIENT STATES THAT THE CHAIR IS MORE COMFORTABLE FOR HER LEGS. CALL LIGHT IN PLACE. PATIENT HAS NO OTHER COMPLAINTS AT THIS TIME.
--- NOTE | 2020-10-17 21:45 | NUR ---
IN TO ASSIST PATIENT TO BED. PATIENT RECIEVED MEDICATION AND STATES THAT HER LEGS ARE FEELING BETTER. PATIENT POSITIONED IN BED WITH LEGS ELEVATED AND HOB RAISED. PATIENT APPLIED CPAP MACHINE AND HAS NO OTHER COMPLAINTS AT THIS TIME.
--- NOTE | 2020-10-18 | NUR ---
IN TO ASSIST PATIENT INTO CHAIR. PATIENT COMPLIANS OF 8/10 LEG& HIP PAIN. PATIENT WAS POSITIONED IN THE CHAIR AND GIVEN PAIN MEDICATION. VITAL SIGNS ASSESSED. HR REMAINS IN THE 70'S, RESPIRATIONS ARE EVEN AND UNLABORED. PT HAS NOT OTHER COMPLAITNS AT THIS TIME. CALL LIGHT IN PLACE.
--- NOTE | 2020-10-18 02:27 | NUR ---
PT RESTING IN BED. CPAP MACHINE IN PLACE AND ON PATIENT. HR REMAINS IN THE HIGH 60'S. RESPIRATIONS ARE EVEN AND UNLABOERD. PT DOES NOT HAVE ANY COMPLAINTS AT THIS TIME.
--- NOTE | 2020-10-18 03:36 | NUR ---
IN TO ASSIST PATIENT TO CHAIR. PATIENT HAS COMPLAINTS OF RESTLESS LEGS. PATIENT POSITIONED IN CHAIR WITH WARM BLANKET. PATIENT REQUESTS TO KEEP LEGS DOWN AT THIS TIME. VS OBTAINED. GRAF CATHETER EMPTIED. PT HAS NO OTHER COMPLAINTS AT THIS TIME. CALL LIGHT IN PLACE.
--- NOTE | 2020-10-18 05:20 | NUR ---
LAB IN TO PATIENTS ROOM. PATIENT AWAKE IN CHAIR. PATIENT HAS NO OTHER COMPLAINTS AT THIS TIME.
--- NOTE | 2020-10-18 06:00 | NUR ---
IN TO CHECK ON PATIENT AND EMPTY GRAF CATHETER. PATIENT STANDING BY CHAIR GETTING READY TO TRANSFER. ASSISTED PATIENT TO BED. HOB AND LEGS ELEVATED. GAVE PATIENT CUP OF ICE. CALL LIGHT IN PLACE. NO FURTHER COMPLAINTS AT THIS TIME.
--- NOTE | 2020-10-18 06:15 | NUR ---
IN TO ASSIST PATIENT TO EDGE OF BED. PATIENT PERFORMING DENTAL CARE AND WASHING FACE. PATIENT HAS NO COMPLAINTS AT THIS TIME.
--- NOTE | 2020-10-18 06:48 | NUR ---
PATIENT REQUESTING TO BE ASSISTED TO CHAIR DUE TO LEG AND KNEE PAIN. PATIENT REPOSITIONED IN CHAIR AND PAIN MEDICATION GIVEN. PATIENT HAS NO OTHER COMPLAINTS AT THIS TIME.
--- NOTE | 2020-10-18 06:58 | NUR ---
PATIENT ASSISTED IN AMBULATING TO THE BATHROOM. CALL LIGHT IN PLACE. PATIENT INSTRUCTED TO CALL WHEN READY FOR ASSISTANCE.
--- NOTE | 2020-10-18 07:55 | NUR ---
FULL REPORT RECIEVED FROM ZACH RN, ALL QUESTIONS ANSWERED. PT IS AWAKE AND SITTING UP IN HER CHAIR THIS AM. DENIES ANY NEEDS AT THIS TIME.
--- NOTE | 2020-10-18 09:30 | NUR ---
ASSISTED PT WITH TRANSFER BACK TO BED. 02 AT 88 ON RA WITH AMBULATION. PT IS LAYING DOWN AND HAS HOME CPAP MACHINE PLACED, SP02 92%. PT IS RESTING, RT IN ROOM. CALL LIGHT WITHIN REACH.
[2020-10-18] MEDS ORDERED: K-TAB ER20 MEQ PO (10:40)
[2020-10-18] MEDS ORDERED: SPIRONOLACTONE50 MG PO (10:40)
--- NOTE | 2020-10-18 11:39 | NUR ---
THIS RN IN WITH STUDENT NURSE LESVIA AND ASSISTED TO REMOVE PATIENTS GRAF CATHETER. 10MLS FLUID REMOVED FROM BALLOON AND THEN GRAF REMOVED WITH NO ISSUES. PATIENT TOLERATED WELL. NO OTHER ISSUES AT THIS TIME. WILL CONTINUE TO CLOSELY MONITOR.
--- NOTE | 2020-10-18 12:29 | NUR ---
PT USING CPAP. UNABLE TO VISIT, SHE IS ALSO ASLEEP
--- NOTE | 2020-10-18 12:36 | NUR ---
PT WAS ABLE TO GET DRESSED INDEPENDENTLY. SHE VOIDED IN THE RESTROOM WITH NO ASSISTANCE. PT HAS ALL BELONGINGS WITH HER. PT WAS DISCHARGED VIA WHEELCHAIR WITH STUDENT NURSE AND NURSING AID. WAITING OUT FRONT, PT ABLE TO TRANSFER TO PASSENGER SEAT.
== END 2020-10-18 12:20 | disposition home or self-care (01) | DRG 291 ==
LOC: ED 23:36 → CCU 23:38
PROVIDERS: ADMIT Internal Medicine; ATTEND Internal Medicine
DX: I13.0 Hypertensive heart and chronic kidney disease with heart failure and stage 1 through stage 4 chronic kidney disease, or unspecified chronic kidney disease (principal); I50.33 Acute on chronic diastolic (congestive) heart failure; Z20.822 Contact with and (suspected) exposure to COVID-19; E79.0 Hyperuricemia 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 of inflammatory arthritis and tophaceous disease; J44.9 Chronic obstructive pulmonary disease, unspecified; N18.30 Chronic kidney disease, stage 3 unspecified; E11.22 Type 2 diabetes mellitus with diabetic chronic kidney disease; E03.9 Hypothyroidism, unspecified; E78.5 Hyperlipidemia, unspecified; G25.81 Restless legs syndrome; G47.33 Obstructive sleep apnea (adult) (pediatric); F39 Unspecified mood [affective] disorder; K74.60 Unspecified cirrhosis of liver; Z90.49 Acquired absence of other specified parts of digestive tract; Z88.5 Allergy status to narcotic agent; Z88.8 Allergy status to other drugs, medicaments and biological substances; Z90.710 Acquired absence of both cervix and uterus; Z87.891 Personal history of nicotine dependence; Z79.84 Long term (current) use of oral hypoglycemic drugs; Z79.899 Other long term (current) drug therapy
CPT/HCPCS: 36415; 71045; 80048; 80053; 80069; 83036; 83735; 83880; 84484; 85025; 93005; 93010; 93306; 94640; 96374; 99285-25; C9803; J1815; J3475; J3490; U0003

== ENCOUNTER 2020-10-30 02:50 | Observation (INO) | payer MEDICARE, OTHER, SELFPAY ==
[~2020-10-30] VITALS: Ht 162.6 cm; Wt 148.6 kg
[~2020-10-30 02:50] MED LIST changes: +ADVAIR HFA 230-12 GM INH; +SPIRONOLACTONE50 MG PO
--- NOTE | 2020-10-30 06:00 | NUR ---
PT ARRIVED TO ROOM 129 AT 0535 VIA STRETCHER. STANDING WEIGHT OBTAINED, PT ABLE TO AMBULATE TO BED AND THEN TO CHAIR. ALERT/ORIENTED, REPORTS BACK PAIN HAS IMPROVED TO 6/10 FROM 8/10 AFTER PRN PAIN MEDICATION. LUNGS DIM, RA, UPPER AIRWAY WHEEZE NOTED. HR REGULAR. BOWEL TONES ACTIVE. GRAF PATENT. SKIN GROSSLY INTACT, SKIN CHANGES AND EDEMA NOTED TO BLE. IV SALINE LOCKED AND INTACT-FLUIDS AND ANTIBIOTICS COMPLETED. PT PROVIDED WITH WARM BLANKETS, ICE WATER, AND COFFEE PER REQUEST. CALL LIGHT AND BELONGINGS WITHIN REACH, PT DENIES FURTHER REQUESTS AT THIS TIME.
--- NOTE | 2020-10-30 07:32 | NUR ---
REPORT REC'D FROM METAL MINER AND PLAN OF CARE RESUMED FOR PATIENT. PATIENT SITTING UP IN CHAIR AT THIS TIME AND STATES SHE IS DOING WELL. PT REMEMBERS THIS RN FROM PREVIOUS ADMISSIONS. PT IS BREATHING COMFORTABLY AND DOES NOT APPEAR LABORED OR SHORT OF BREATH. WILL CONTINUE TO MONITOR. SP02 IS 96% ON ROOM AIR.
--- NOTE | 2020-10-30 07:57 | NUR ---
ASSESSMENT COMPLETE. PT REMAINS UP IN CHAIR. PT DENIES SHORTNESS OF BREATH AT THIS TIME. PT'S RESTLESS LEGS ARE BOTHERING HER THIS AM, AND MAKING HER NOT ABLE TO SIT STILL. DR. STROUD TO SEE PATIENT THIS AM AND WILL LIKELY HAVE HER NORMAL HOME MEDICATIONS RE-ORDERED. GRAF DRAINING YELLOW URINE WITH SOME SEDIMENT AND CLOUDYNESS TO IT. PT REMAINS SALINE LOCKED. DENTURE GLUE PROVIDED FOR PATIENT. CONTINUE TO MONITOR.
--- NOTE | 2020-10-30 08:56 | NUR ---
CBG 328 THIS AM. PENDING NEW ORDERS FROM DR. STROUD.
[2020-10-30] MEDS ORDERED: NYSTATIN15 GM TOP (09:44)
[2020-10-30] MEDS ORDERED: TRULICITY0.75 MG/0. SUB-Q (09:45)
--- NOTE | 2020-10-30 10:18 | NUR ---
LESIA D/C. PT UP IN ROOM TO CHAIR. TAKEN OFF TELE MONITOR. PT WILL TRANSFER TO MED/SURG.
--- NOTE | 2020-10-30 11:39 | NUR ---
PT WAS SITTING IN THE CHAIR. ASSESSMENT COMPLETED. LUNG SOUNDS WERE DIMINISHED BUT CLEAR. HEART TONES WERE WNL. PT HAD EDEMA IN EXTREMITIES THAT WAS TENDER. PT STATED IT WAS HER BASELINE. NO NUMBNESS OR TINGLING IN EXTREMITIES STATED BY THE PATIENT. PT IS ON ROOM AIR. IV IS SALINE LOCKED. LASIX IS SCHEDULED FOR THIS AFTERNOON. PT WALKED TO THE BED AND ASSISTED PT GET COMFORTABLE. NO FURTHER NEEDS AT THIS TIME.
--- NOTE | 2020-10-30 12:15 | NUR ---
PT SITTING IN CHAIR FINISHING LUNCH. PT GLUCOSE CHECK WAS 406. DR STROUD WAS INFORMED AND THE PT WAS GIVEN 16 UNITS OF INSULIN. PT WAS ALSO GIVEN TORSEMIDE. SEE EMAR. PT WAS GIVEN WARM BLANKETS. NO OTHER NEEDS AT THIS TIME.
--- NOTE | 2020-10-30 12:36 | NUR ---
Medications reconciled
--- NOTE | 2020-10-30 13:17 | NUR ---
PT ALERT, ORIENTED AND FEELING IMPROVEMENT ALREADY. PT FEELS PROBLEM HAS BEEN DISCOVERED AND ALREADY SHE IS RESPONDING TO TREATMENT. PT SAID SHE HAS A TRIP PLANNED NEXT WEEK-NEEDS TO GET WELL SOON. HAD PRAYER WITH PT, LEFT G.POST AND BLESSING. WILL FOLLOW
--- NOTE | 2020-10-30 13:42 | NUR ---
VITALS AND I&OS CHARTED. CUP OF ICE PROVIDED, CALL LIGHT IN REACH. PATIENT AGREED TO SHOWER BEFORE END OF DAY SHIFT TODAY. CALL LIGHT IN REACH
--- NOTE | 2020-10-30 13:54 | EKG ---
[facility] [address] [place], [place] [address] Signed Normal sinus rhythm Normal ECG No previous ECGs available Confirmed by CAR STROUD DO ([id number]) on 10/30/2020 1:53:59 PM Electronically Signed By: CAR STROUD DO 10/30/20 1354 PATIENT NAME: MODESTA CRAWFORD Electrocardiogram DATE OF : 53 PHYSICIAN: CAR STROUD DO REPORT #: [id number] REPORT IS CONFIDENTIAL AND NOT TO BE RELEASED WITHOUT AUTHORIZATION
--- NOTE | 2020-10-30 14:05 | NUR ---
It has been a pleasure to visit with Rebeca today. She is up in the chair and oriented to person/place/time, she is able to answer questions appropriately. She staes that all the nurses "are very good to me and very nice." She acknowledged that her call light was being answered in a very timely time, and that the nurses are doing a good job with her pain management. She also affirmed that he halls were quiet in the night so that she could rest, and she reported that the nurses were explaining all of her medications to her, and she understood why she was taking her medications. She had no questions for me at this time, and reported no concerns to me at this time.
--- NOTE | 2020-10-30 14:14 | NUR ---
PT SITTING IN THE CHAIR. PT ASKED FROM PAIN MEDICATION AND STATED 8/10 PAIN IN HER LOWER EXTREMITIES AND HER LEFT HIP. PAIN MEDICAITON WAS GIVEN. SEE EMAR. WARM BLANKET AND FRESH WATER WAS GIVEN TO THE PT. NO FURTHER REQUESTS AT THIS TIME.
--- NOTE | 2020-10-30 14:44 | NUR ---
Pt cont. to live at home with her spouse and son. Daughter has also returned in the last week. Pt denies needs and states she has all the DME she needs. She is awaiting a hospital bed which was ordered from her PCP. Plans on dc to home when cleared medically. Denies financial issues.
--- NOTE | 2020-10-30 14:52 | NUR ---
Patient without any current needs from this service. She has no concerns for home management of HF. Welcomed her to call with any further questions. Chart and meds reviewed.
--- NOTE | 2020-10-30 16:24 | NUR ---
PT SITTING IN CHAIR. PT LUNG SOUNDS ARE DIMINISHED AND CLEAR. BOWEL TONES ARE NORMOACTIVE. PT IS ON ROOM AIR. IV IS SALINE LOCKED. PT STATED PAIN LEVEL WAS 6/10 IN HER LEGS BILATERALLY BUT STATED THIS IS A TOLERABLE NUMBER AND THE PAIN IS CHRONIC. THE EDEMA HAS WORSENED IN HER LEGS. PT IS SITTING IN THE CHAIR SO WE PUT HER FEET UP. PT BLANKETS WERE CHANGED ON THE CHAIR AND WARM ONES WERE PROVIDED. NO FURTHER NEEDS AT THIS TIME.
--- NOTE | 2020-10-30 16:57 | NUR ---
PT WITH ELEVATED BLOOD GLUCOSE 468, DR. STROUD CONTACTED PER CALL PARAMETER, TELEPHONE ORDER TO GIVE ADDITIONAL 30 UNITS LANTUS WITH SS HUMALOG, RBOV.
--- NOTE | 2020-10-30 19:35 | NUR ---
PATIENT CURRENTLY UP IN THE BATHROOM. WILL CHECK BACK.
--- NOTE | 2020-10-30 21:14 | NUR ---
PT UP IN CHAIR, VS DONE, I/O DONE, PT REQUESTS ASSISTANCE WITH CPAP, RN NOTIFIED. PT C/O LEG PAIN OF 7, RN NOTIFIED. DENTURE CARE DONE. NO FURTHER ASSSISTANCE AT THIS TIME.
--- NOTE | 2020-10-30 21:51 | NUR ---
CALLED FOR A BLOOD SUGAR OF 461 AND HE ORDERED 20UNITS OF HUMALOG X1 NOW, WHICH WAS GIVEN. ALSO MADE INSULIN ADJUSTMENTS FOR TOMORROW'S MEDS WELL. PATIENT GETTING 1 NORCO FOR 8/10 BILAT LEG PAIN. PATIENT HAS BEEN SET UP FOR HER OWN CPAP MACHINE AND WILL PUT IT ON WHEN THIS RN IS DONE I THE ROOM. CALL LIGHT IS IN REACH.
--- NOTE | 2020-10-31 00:10 | NUR ---
PATIENT RESTING QUIETLY ON HER LEFT SIDE, EYES CLOSED, RESPIRATION REGULAR AND EVEN ON CPAP, CALL LIGHT IN REACH.
--- NOTE | 2020-10-31 01:50 | NUR ---
PATIENT REQUESTED A CUP OF ICE CHIPS WHICH WERE GIVEN AND PATIENT IS UP IN THE BEDSIDE ARM CHAIR WATCHING TV. CALL LIGHT IS IN REACH.
--- NOTE | 2020-10-31 03:24 | NUR ---
PATIENT BACK IN BED SLEEPING ON HER RIGHT SIDE, RESPIRATIONS REGULAR AND EVEN ON HER CPAP AGAIN, EYES CLOSED, CALL LIGHT IN REACH.
--- NOTE | 2020-10-31 05:22 | NUR ---
VITALS TAKEN AND RECORDED. INTAKE AND OUTPOUT RECORDED. PROVIDED FRESH ICE CHIPS. NO FURTHER NEEDS NOTED. CALL LIGHT IN REACH. PATIENT RESTING IN RECLINER WATCHING TV.
--- NOTE | 2020-10-31 05:47 | NUR ---
PATIENT HAS HAD 1 NORCO ON EVENING MED PASS AND 1 NORCO WITHIN THE LAST HOUR FOR BILAT LEG PAIN AND LEFT HIP PAIN 7-01/28. PATIENT HAS BEEN UP AND DOWN THROUGH THE SHIFT FROM THE BED ON CPAP TO THE BEDSIDE ARMCHAIR. PATIENT IS IN GOOD SPIRITS THIS MORNING AND IS UP IN THE CHAIR AT THIS TIME. CALL LIGHT IS IN REACH.
--- NOTE | 2020-10-31 07:24 | NUR ---
this rn received report from gerard braga, pt sitting in chair and states that she is doing well this am and states that she needs nothing this am
[2020-10-31] MEDS ORDERED: CEFPODOXIME PR200 MG PO (09:27)
--- NOTE | 2020-10-31 11:24 | NUR ---
THIS RN STARTED BLOOD AT THIS TIME. [facility] NURSE LOU IN PTS ROOM WITH THIS RN. BLOOD ADMINISTRATION EDUCATION GIVEN TO PT BY STAFF AT THIS TIME AND PT STATED UNDERSTANDING.
--- NOTE | 2020-10-31 12:50 | NUR ---
THIS RN IN PTS ROOM GIVE PT HER A WARM BLANKET. BLOOD STILL GOING AND PT HAS NO CONCERNS AT THIS TIME. PT READY FOR A NAP WHILE BLOOD IS FINISHING UP
--- NOTE | 2020-10-31 13:00 | NUR ---
PT SITTING IN CHAIR, ALERT, ORIENTED AND USING O2 MASK. PT SAID SHE IS FEELING MUCH BETTER, AND EXPECTS TO DC LATER TODAY. GAVE ENCOURGEMENT AND BLESSING. I WILL FOLLOW NEEDED
== END 2020-10-31 14:15 | disposition home or self-care (01) ==
LOC: ED 02:50 → CCU 02:51 → MS 11:00
PROVIDERS: ADMIT Student in an Organized Health Care Education/Training Program; ATTEND Student in an Organized Health Care Education/Training Program
DX: A41.9 Sepsis, unspecified organism (principal); R65.20 Severe sepsis without septic shock; N39.0 Urinary tract infection, site not specified; B96.20 Unspecified Escherichia coli [E. coli] as the cause of diseases classified elsewhere; E11.65 Type 2 diabetes mellitus with hyperglycemia; I13.0 Hypertensive heart and chronic kidney disease with heart failure and stage 1 through stage 4 chronic kidney disease, or unspecified chronic kidney disease; N18.30 Chronic kidney disease, stage 3 unspecified; I50.32 Chronic diastolic (congestive) heart failure; Z20.822 Contact with and (suspected) exposure to COVID-19; E11.22 Type 2 diabetes mellitus with diabetic chronic kidney disease; E78.5 Hyperlipidemia, unspecified; J44.9 Chronic obstructive pulmonary disease, unspecified; K74.60 Unspecified cirrhosis of liver; E03.9 Hypothyroidism, unspecified; D64.9 Anemia, unspecified; G47.33 Obstructive sleep apnea (adult) (pediatric); G25.81 Restless legs syndrome; E66.01 Morbid (severe) obesity due to excess calories; Z88.5 Allergy status to narcotic agent; Z88.8 Allergy status to other drugs, medicaments and biological substances; Z79.899 Other long term (current) drug therapy; Z79.4 Long term (current) use of insulin; Z79.890 Hormone replacement therapy
CPT/HCPCS: 36415; 36430; 51702; 71045; 80053; 81001; 83605; 83880; 84484; 85025; 86850; 86900; 86901; 86920; 87040; 87077; 87088; 87186; 93005; 93010; 94640; 96366; 96367; 96368; 96372; 96376; 99285-25; A9270; C9803; G0378; J0692; J1650; J1815; J1940; J1956; J2930; J7030; P9016; U0003

== ENCOUNTER 2020-11-18 18:49 | Inpatient (IN) | payer MEDICARE, OTHER ==
[~2020-11-18] VITALS: Ht 162.6 cm; Wt 151.4 kg
[~2020-11-18 18:49] MED LIST changes: +CEFPODOXIME PR200 MG PO; +NYSTATIN15 GM TOP; +TRULICITY0.75 MG/0. SUB-Q
--- OUTSIDE RECORDS SUMMARY | 2020-11-18 18:52 | XMS ---
PreManage Notification: MODESTA CRAWFORD Security Business Intelligence Reporting Analyst Events No recent Security Events currently on file CRITERIA MET - Group Notification - 6 ED Visits in 6 Months - [facility] - Has Care Guidelines - History of Sepsis Dx - [facility] - 2 Visits in 30 Days CARE PROVIDERS GARRET GROSSMAN Nurse Practitioner: Family 05/22/2019-Current PHONE: [phone] [facility]Current PHONE: [phone] Addi has no Care Guidelines for this patient. Care History Medical/Surgical 08/07/2020 [facility] Increased swelling of lower legs and shortness of breath and anemia. Patient stated there was\T\nbsp; a 40 pond weight gain in a month. 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 PHONE # . - Patient is currently established with [facility]. If patient is seen in the ED during business hours. Please contact CHWs at [facility]. Care Recommendation: If this patient has [...] care. E.D. VISIT COUNT (12 MO.) [address] TOTAL 8 NOTE: Visits indicate total known visits. ED/C VISIT TRACKING (12 MO.) 11/18/2020 18:50 [facility] [place] TYPE: Emergency COMPLAINT: - CHILLS 10/30/2020 02:50 [facility] [place] TYPE: Emergency COMPLAINT: - DIFFICULTY BREATHING 10/14/2020 23:37 [facility] [place] TYPE: Emergency COMPLAINT: - DIFFICULTY BREATHING,FEVER 09/17/2020 17:47 [facility] [place] TYPE: Emergency COMPLAINT: - NOT FEELING WELL DIAGNOSES: - Allergy status to other drugs, medicaments and biological substances - FPC (current) use of insulin - Chronic kidney disease, unspecified - Other shelter (current) drug therapy - Chronic obstructive pulmonary [...] Emergency COMPLAINT: - BLOODY STOOL 08/12/2020 16:04 [facility] TYPE: Emergency DIAGNOSES: - Anemia, unspecified - Leg Swelling - Acute kidney failure, unspecified - Shortness of breath 08/05/2020 12:54 [facility] TYPE: Emergency COMPLAINT: - SOB, LEG SWELLING DIAGNOSES: - Dyspnea, unspecified - Other shelter (current) drug therapy - Personal history of nicotine dependence - Cellulitis of right lower limb - Anemia, unspecified - Chronic kidney disease, unspecified - FPC (current) use of insulin - Allergy status to narcotic agent - Chronic obstructive pulmonary disease, unspecified - Type 2 diabetes mellitus without complications - Unspecified asthma, uncomplicated - Allergy status to other drugs, medicaments and biological substances - Morbid (severe) obesity due to excess calories - oil heaterman (current) use of systemic steroids - Essential (primary) hypertension 07/09/2020 07:21 [facility] TYPE: Emergency COMPLAINT: - DIFFICULTY BREATHING DIAGNOSES: - Type 2 diabetes mellitus without complications - FPC (current) use of insulin - Allergy status [...] ureter, unspecified INPATIENT VISIT TRACKING (12 MO.) 10/30/2020 02:51 [facility] TYPE: Observation COMPLAINT: - SEPSIS,UTI,PNEUMONIA DIAGNOSES: - Morbid (severe) obesity due to excess calories - Other shelter (current) drug therapy - oil heaterman (current) use of insulin - Hyperlipidemia, unspecified - Chronic diastolic (congestive) heart failure - Urinary tract infection, site not specified - Allergy status to other drugs, medicaments and biological substances - Hormone replacement therapy - Hypertensive heart and chronic kidney disease with heart failure and stage 1 through stage 4 chronic kidney disease, or unspecified chronic kidney disease - Chronic obstructive pulmonary disease, unspecified - Type 2 diabetes mellitus with diabetic chronic kidney disease - Chronic kidney disease, stage 3 unspecified - Hypothyroidism, unspecified - Allergy status to narcotic agent - Sepsis, unspecified organism - Unspecified cirrhosis of liver - Anemia, unspecified - Unspecified Escherichia coli [E. coli] as the cause of diseases classified elsewhere - Obstructive sleep apnea (adult) (pediatric) - Fever, unspecified - Restless legs syndrome - Type 2 diabetes mellitus with hyperglycemia - Severe sepsis without septic shock 10/15/2020 09:00 [facility] TYPE: Critical Care COMPLAINT: - CHF EXACERBATION DIAGNOSES: - Other shelter (current) drug therapy - Type 2 diabetes mellitus with diabetic chronic kidney disease - Obstructive sleep apnea (adult) (pediatric) - Acquired absence of other specified parts of digestive tract - oil heaterman (current) use of oral hypoglycemic drugs - Chronic obstructive pulmonary disease, unspecified - Allergy status to other drugs, medicaments and biological substances - Acquired absence of both cervix and uterus - Restless legs syndrome - Acute on chronic diastolic (congestive) heart failure - Hypothyroidism, unspecified - Unspecified cirrhosis of liver - Allergy status to narcotic agent - Chronic kidney disease, stage 3 unspecified - Hyperlipidemia, unspecified - Hypertensive heart and chronic kidney disease with heart failure and stage 1 through stage 4 chronic kidney disease, or unspecified chronic kidney disease - Unspecified mood [affective] disorder - Hyperuricemia 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 of inflammatory arthritis and tophaceous disease - Personal history of nicotine dependence 08/26/2020 11:55 [facility] TYPE: Medical Surgical COMPLAINT: - CHF DECOMPENSATION DIAGNOSES: - Chronic kidney disease, stage 3 unspecified - Allergy status to narcotic agent - Hypertensive heart and chronic kidney disease with heart failure and stage 1 through stage 4 chronic kidney disease, or unspecified chronic kidney disease - FPC (current) use of insulin - Acute kidney [...] - Chronic obstructive pulmonary disease, unspecified - oil heaterman (current) use of inhaled steroids - Obstructive sleep apnea (adult) (pediatric) - Unspecified cirrhosis of liver - Unspecified mood [affective] disorder - Type 2 diabetes mellitus with diabetic chronic kidney disease 08/12/2020 16:04 [facility] TYPE: Internal Medicine DIAGNOSES: - Essential (primary) hypertension - Acute posthemorrhagic anemia - Dyspnea, unspecified - Morbid (severe) obesity due to excess calories - Shortness of breath - Hypomagnesemia - Acute kidney failure, unspecified - Iron deficiency anemia secondary to blood loss (chronic) - Generalized edema - Anemia, unspecified - Other terminologist (current) drug therapy - Unspecified ovarian cyst, unspecified side - Other fecal abnormalities - Localized edema - Fluid overload, unspecified - Alkalosis - Polyp of stomach and duodenum - Chronic kidney disease, stage 3b - Body mass index [BMI] 50.0-59.9, adult - Polyp of colon - Hypokalemia [email or web address]
[2020-11-18] MEDS ORDERED: DOXYCYCLINE HY100 MG PO (21:34)
[2020-11-18] MEDS ORDERED: TRIAMCINOLONE A15 G1 TOP (21:35)
[2020-11-18] MEDS ORDERED: METOLAZONE2.5 MG PO (21:35)
--- NOTE | 2020-11-18 23:08 | NUR ---
2 WARM BLANKETS PROVIDED.
--- NOTE | 2020-11-18 23:31 | NUR ---
RCEIVED REPORT FROM ED RN. PATIENT BROUGHT TO THE FLOOR VIA WHEELCAHIR. PATIENT SELF TRANSFERRED FROM WHEELCHAIR TO BED. PATIENTS ADMISSION COMPLETED. VITALS TAKEN AND RECORDED. SNACK PROVIDED. PATIENT PLACED ON 2L VIA NC PER REQUEST PATIENTS CPAP IS AT HOME. PATIENTS IV INFUSING PER ORDER. MEDICATIONS GIVEN PER ORDER. PATIENT RATES PAIN AT A 8/10 IN HER LEFT HIP. PATIENT GIVEN PRN TYLENOL FOR LEFT HIP AND HEADACHE. NO FURTHER NEEDS NOTED. CALL LIGHT IN REACH.
--- NOTE | 2020-11-19 00:14 | NUR ---
SBA TO THE BATHROOM. PATIENT IS BACK IN BED NOW. CALL LIGHT IN REACH.
--- NOTE | 2020-11-19 01:42 | NUR ---
PATIENT REPORTS 8/10 PAIN IN HER RIGHT HIP. PATIENT GIVEN PRN PAIN MEDICATION PER ORDER. PATIENT IS RESTING IN RECLINER. PATIENT DENIES ANY FURTHER NEEDS. CALL LIGHT IN REACH.
--- NOTE | 2020-11-19 03:30 | NUR ---
VS AND I&O COMPLETE. PT BP NOTED TO BE LOW WITH MULTIPLE ATTEMPTS INCLUDING MANUAL. PT ASYMPTOMATIC. RESEARCH RN SPEC NOTIFIED AND IN TO SEE PT.
--- NOTE | 2020-11-19 04:07 | NUR ---
PATIENT IS SITTING ON THE EDGE OF THE BED. PATIENT ASSISTED TO THE RECLINER. KPAD TO RIGHT HIP. FRESH ICE PROVIDED. CALL LIGHT IN REACH. IV INFUSING. PATIENT DENIES ANY FURTHER NEEDS. CALL LIGHT IN REACH.
--- NOTE | 2020-11-19 05:41 | NUR ---
VITALS TAKEN AND RECORDED. PATIENTS MORNING MEDICATIONS GIVEN PER ORDER. PATIENT REPORTS 8/10 PAIN IN HER HIPS. PATIENT GIVEN PRN PAIN MEDICATION PER ORDER. NO FURTHER NEEDS NOTED. LAB IN ROOM.
--- NOTE | 2020-11-19 07:33 | NUR ---
this rn received report from tigist braga. pt sitting up to chair this am and states taht she is feeling good this am and states that she needs nothing further this am
--- NOTE | 2020-11-19 08:05 | NUR ---
THIS RN IN PTS ROOM TO GIVE PT HER MORING INSULIN. PT STATES THAT SHE IS COLD, HAVING CHILLS THIS AM. PT STATES THAT SHE NEEDS NOTHING ELSE AT THIS TIME.
--- NOTE | 2020-11-19 08:27 | NUR ---
MED REC COMPLETE
--- NOTE | 2020-11-19 08:52 | NUR ---
PT AWAKE IN CHAIR. PT REPORTS BEING VERY COLD. WARM BLANKETS GIVEN MULTIPLE TIMES. PT MOVED TO BED. FAMILY CAME TO VISIT. PT REQUESTS TEMPERATURE TO BE TAKEN OFTEN. ICE CHIPS GIVEN. CALL LIGHT WITHIN REACH. NO FURTHER NEEDS AT THIS TIME.
--- NOTE | 2020-11-19 09:50 | NUR ---
THIS RN IN PTS ROOM TO GIVE PT HER MORNING MEDS. PT REPORTS THAT SHE IS HAVING INCREASED PAIN IN HER HIPS/BACK AND IS EXPERIENCING A HEADACHE. THIS RN PROVIDED PT WITH 1NORCO THIS AM PER PT REQUEST. THIS RN ASSISTED PT BACK TO BED TO ATTEMPT TO GET MORE COMFORTABLE. PT STATES THAT SHE NEEDS NOTHING FURTHER AT THIS TIME
--- NOTE | 2020-11-19 11:15 | NUR ---
THIS RN IN PTS ROOM PER PT REQUEST. PT REPORTS THAT SHE IS PAINFUL AND FEELING CHILLED. PT BACK TO BED AFTER BEING IN CHAIR. THIS RN ASSISTED PT TO SETTLE HEAT PACKS IN PLACE.
--- NOTE | 2020-11-19 11:55 | NUR ---
THIS RN IN PTS ROOM TO GET BLOOD SUGAR. PT STATES THAT WHEN SHE NAPS SHE FEELS BETTER BUT WHEN AWAKE SHE FEELS MORE PAINFUL AND IS CHILLING. PT ALSO REPORTS THAT HER BELLY FEELS UPSET. THIS RN PROVIDED PT WITH
--- NOTE | 2020-11-19 12:02 | EKG ---
[facility] [address] [place] [address] Signed Accelerated Junctional rhythm Abnormal ECG When compared with ECG of 30-OCT-2020 03:04, Junctional rhythm has replaced Sinus rhythm Confirmed by JEROD LAN MD ([id number]) on 11/19/2020 12:02:23 PM Electronically Signed By: JEROD LAN MD 11/19/20 1202 PATIENT NAME: MODESTA CRAWFORD Electrocardiogram DATE OF : 53 PHYSICIAN: JEROD LAN MD REPORT #: [id number] REPORT IS CONFIDENTIAL AND NOT TO BE RELEASED WITHOUT AUTHORIZATION
--- NOTE | 2020-11-19 12:45 | NUR ---
PT IN BED IN DARKENED RM-ALERT AND ORIENTED. PT RECOGNIZED ME, GREETED ME. PT SAID THIS INFECTION CAME AND SHE IS NOT FEELING WELL, BUT ALWAYS WITH A SMILE ON HER FACE. HAD PRAYER, LEFT G.POST AND GAVE ENCOURGEMENT. WILL CHECK AGAIN.
--- NOTE | 2020-11-19 13:30 | NUR ---
INTO PATIENT ROOM, CASE MANAGEMENT ASSESSMENT COMPLETED. PATIENT WISHES TO DISCHARGE HOME WITH SPOUSE AND DAUGHTER WHEN STABLE. PATIENT SPOUSE DON IS AT THE BEDSIDE AND IS AGREEABLE TO DISCHARGE PLAN. CONTACT INFORMATION FOR DON CONFIRMED. PATIENT IS ESTABLISHED WITH DR. CRESPO AT THIS TIME. PATIENT DENIES NEED FOR FINANCIAL ASSISTANCE. PATIENT COMPLAINS OF INCREASED BILATERAL HIP PAIN. BERTA TRAMMELL RN NOTIFIED AND INTO ROOM TO CHECK ON PATIENT.
--- NOTE | 2020-11-19 13:50 | NUR ---
THIS RN IN PTS ROOM TO CHECK ON PT. PT STATES THAT SHE IS IN NEED FOR A PAIN PILL. PT INFORMED THIS RN THAT SHE ACTUALLY TAKES 10MG NORCOS- THIS RN TO NOTIFY .
--- NOTE | 2020-11-19 17:16 | NUR ---
THIS RN IN PTS ROOM TO GIVE PT HER INSULIN AND UP PTS TOTAL DOSE OF NORCO TO 10MG PER PT REQUEST. PT IN BED AND STATES THAT THIS IS THE MOST COMFORTABLE SHE CAN GET
--- NOTE | 2020-11-19 19:38 | NUR ---
REPORT RECEIVED FROM DAY SHIFT RN. PT LYING IN BED ALERT AND ORIENTED. REQUESTING PRN FOR PAIN. ADMINISTERED PER EMAR. FRESH ICE PROVIDED. NO FURTHER NEEDS AT THIS TIME. WHITE BOARD UPDATED. CALL LIGHT IN REACH.
--- NOTE | 2020-11-19 20:50 | NUR ---
EVENING ASSESSMENT COMPLETE. SCHEDULED MEDS ADMINISTERED PER EMAR. PT DENIES CP OR SOB. 100% ON RA. TELE #9 SR. HR 80'S. TEMP 99.6. OCCASIONAL DRY COUGH NOTED. INCREASED RESPIRATIONS WITH ACTIVITY. PT SITTING IN RECLINER WITH BLE ELEVATED. EDEMA NOTED. IVF INFUSING ORDERED. PT DENIES QUESTIONS OR CONCERNS AT THIS TIME. CALL LIGHT IN REACH.
--- NOTE | 2020-11-19 22:27 | NUR ---
PT RESTING IN BED WITH EYES CLOSED. CPAP IN PLACE. NO APPARENT DISTRESS.
--- NOTE | 2020-11-19 23:51 | NUR ---
TELE LEADS REPLACED. PT UP TO BR INDEPENDENTLY TO VOID 300 ML CONCENTRATED URINE. BACK TO BED, AGUSTIN WELL. PT REPORTS HIP PAIN 01/28. PRN FOR PAIN ADMINISTERED PER EMAR. ICE CHIPS PROVIDED.
--- NOTE | 2020-11-20 01:55 | NUR ---
TEL LEAD OFF. PT RESP EVEN AND UNLABORED, CPAP IN PLACE. ONCE PT WOKE SHE SAT ON THE EDGE OF BED, DENIED NEED TO USE THE BATHROOM. TELE READING SR @ 91
--- NOTE | 2020-11-20 02:43 | NUR ---
PT RESTING IN BED WITH EYES CLOSED, NAD. CPAP IN PLACE. TELE #9. SR. HR 60'S.
--- NOTE | 2020-11-20 03:47 | NUR ---
CALL LIGHT ANSWERED. PT SITTING ON SIDE OF BED REQUESTING WARM BLANKETS. PROVIDED. ICE CHIPS AND COFFEE PROVIDED WELL. ASSESSMENT COMPLETE. NO FURTHER NEEDS.
--- NOTE | 2020-11-20 07:01 | NUR ---
PT UP TO BR FOR AM CARES. BACK TO RECLINER. SCHEDULED MEDS ADMINISTERED PER EMAR. ICE CHIPS PROVIDED. NO FURTHER NEEDS. CALL LIGHT IN REACH.
--- NOTE | 2020-11-20 07:30 | NUR ---
RECEIVED REPORT AT AROUND 0700, PT WAS SITTING IN CHAIR. PT HAD NO NEEDS OR COCNERNS AT THAT TIME.
--- NOTE | 2020-11-20 07:59 | NUR ---
PATIENT AWAKE AND UP IN CHAIR. AM CARE PROVIDED. CALL LIGHT IN REACH NOTHING ELSE NEEDED AT THIS TIME
--- NOTE | 2020-11-20 08:45 | NUR ---
PER DR. LAN IN AM MEETING SHE WOULD LIKE THE PATIENT TO BE CONSIDERED FOR TRANSITIONAL CARE DUE TO ONGOING NEED FOR IV ABX. JJ LATHAM IN UR TO CHECK INSURANCE STATUS.
--- NOTE | 2020-11-20 09:00 | NUR ---
V/S WDL, LOBES CLEAR BUT DIMINISHED IN THE BASES, PEDIS PULSES +1 WITH SOME EDEMA PRESENT. NO REDNESS NOTEDON RLE WICH WAS OUTLINED YESTERDAY. PT STATED THAT SHE HAS A CYST OF SORT BELOW HER COCCYX. UPON INSPECTION, IT STARTED TO BLEED. GAUZE WAS APPLIED AND I WILL CONTININUE TO MONITOR.
--- NOTE | 2020-11-20 09:54 | NUR ---
RN DID VS PATIENTS LINEN CHANGED AND GOWN. ORAL CARE PROVIDED BY PATIENT. ICE REFRESHED. PATIENT FROM CHAIR BACK TO BED. AMBULATED INDEPENDANTLY. PATIENT WILL HAVE BED BATH AFTER LUNCH. CALL LIGHT IN REACH NOTHING NEEDED AT THIS TIME
--- NOTE | 2020-11-20 10:59 | NUR ---
PT IN ROOM WITH OT. HEADACHE UNCHANGED SO FAR. CYST STILL BLEEDING SOME.
--- NOTE | 2020-11-20 13:04 | NUR ---
PT IN ROOM. NO NEW CONCERNS NOTED.
--- NOTE | 2020-11-20 13:46 | NUR ---
PATIENT BACK TO BED. VITALS AND I&O'S CHARTED. CALL LIGHT IN REACH NOTHING NEEDED AT THIS TIME
--- NOTE | 2020-11-20 15:06 | NUR ---
IN THE AFTERNOON ASSESSMENT IS WAS NOTED THAT PT HAS INCREASED EDEMA IN [place]. HANDS, PT HAS INCREASED SOB WITH ACTIVITY, PT HAS DARKER URINE NOW THAN THIS MORNING, PT ALSO HAS HAD A 10LB WEIGHT GAIN SINCE ADMISSION. MD LAN AWARE, PT NOW SL, LASIX TO BE GIVEN, BNP TO BE DONE 11/21/20 0600.
--- NOTE | 2020-11-20 15:09 | NUR ---
PT LAYING IN BED TALKING ON PHONE. REQUESTED I RETURN LATER. WILL FOLLOW NEEDED
--- NOTE | 2020-11-20 15:14 | NUR ---
CHECKED ON PATIENT AND PATIENT HAS A VISITOR. NOTHING NEEDED
--- NOTE | 2020-11-20 17:44 | NUR ---
WITH THE FIST ASSESSMENT THIS MORNING, PT WANTED ME TO LOOK AT A CYST BELOW HER COCCYX. UPON PARTING THE BUTTOCKS, THE CYST OPEND UP BLEEDING. MD LAN WAS ALSO IN THE ROOM. BLEEDING WAS STOPPED ABOUT 20MINUTES LATER. THIS AFTERNOON, IT WAS NOTED THAT MAULIK. HAND EDEMA IS NOW PRESENT, PT ALSO STATED INCREASED SOB WITH ACTIVITY. PT NOW SL, LASIX IV GIVEN, URINE WAS ALSO DARK PRIOR TO LASIX GIVEN. LOWER LOBES ARE VERY DIMM AT THIS TIME.
--- NOTE | 2020-11-20 19:20 | NUR ---
RECEIVED REPORT, PT IS RESTING WITH EYES CLOSED, RR IS EVEN AND NONLABORED. CALL LIGHT IS CLOSE.
--- NOTE | 2020-11-20 21:28 | NUR ---
IN ROOM TO ASSESS PT AND ADMINISTER MEDICATIONS. ADMINISTERED 2 NORCO FOR 7/10 HIP PAIN. PT DENIES SOB AND NAUSEA AT THIS TIME. SHE HAS CPAP CLOSE BY FOR BEDTIME BUT IS ON RA AT THIS TIME. PT'S DAUGHTER IS IN ROOM VISITING. SHE DENIES FURTHER NEEDS AT THIS TIME. CALL LIGHT IS CLOSE.
--- NOTE | 2020-11-20 22:15 | NUR ---
IN TO GET I@Os, PT PUTTING ON CPAP AT THIS TIME
--- NOTE | 2020-11-20 23:52 | NUR ---
PT IS AWAKE IN BED, ASSISTED HER TO TURN ONTO R SIDE. CPAP IS OFF AT THIS TIME BUT CLOSE BY FOR HER TO PUT BACK ON. PT DENIES FURTHER NEEDS CALL LIGHT IS CLOSE.
--- NOTE | 2020-11-21 01:30 | NUR ---
PT CALLED TO USE BATHROOM. PLANS TO STAY UP IN HER CHAIR AND WATCH TV. NEW TOOTHBRUSH GIVEN PER HER REQUEST. NO OTHER NEEDS AT THIS TIME.
--- NOTE | 2020-11-21 01:35 | NUR ---
in to provide pt with ice chips
--- NOTE | 2020-11-21 02:31 | NUR ---
PT IS RESTING WITH EYES CLOSED, RR IS EVEN AND NONLABORED ON RA. CALL LIGHT IS CLOSE.
--- NOTE | 2020-11-21 02:50 | NUR ---
PT CALLED REQUESTING PAIN MEDS FOR HIP PAIN. ADMINISTERED 2 NORCO FOR 8/10 HIP PAIN. PT DENIES NAUSEA AT THIS TIME BUT STATES HER STOMACH WAS UPSET A LITTLE EARLIER AND HAS IMPROVED. PT DENIES FURTHER NEEDS AT THIS TIME. CALL LIGHT IS CLOSE.
--- NOTE | 2020-11-21 04:47 | NUR ---
PT IS RESTING WITH EYES CLOSED, RR IS EVEN AND NONLABORED. CALL LIGHT IS CLOSE.
--- NOTE | 2020-11-21 05:43 | NUR ---
REQUESTED FRESH ICE, AND A BREATHING TX. RT NOTIFIED. PT UP IN HER RECLINER CHAIR. NO OTHER NEEDS AT THIS TIME.
--- NOTE | 2020-11-21 09:00 | NUR ---
Patient resting in chair, respirations even and non labored. Patient has no distress. No needs at this time. Call light within reach of pt.
--- NOTE | 2020-11-21 13:05 | NUR ---
Patient sitting up in chair, respirations even and non labored. Patient has no distress. Patient concerned regarding her edema in legs. Encouraged patient to elevate legs; skin tight to palpation. Patient denies sob, lung hernandez are clear throughout.
--- NOTE | 2020-11-21 14:32 | NUR ---
PT ALERT, ORIENTED AND SITTING IN CHAIR, PHONE IN HAND. PT SEEMS SOMEWHAT DISCOURAGED TODAY, SAID THAT SHE IS RETAINING FLUID AGAIN. PHONE RANG AGAIN, HAD BRIEF PRAYER WITH PT. WILL CHECK AGAIN
--- NOTE | 2020-11-21 16:06 | NUR ---
PATIENT COMPLAINED OF SHORTNESS OF BREATH. CHECKED PULSE OXIMETER, O2 WAS 97% ON ROOM AIR. PATIENT WAS TALKING IN COMPLETE SENTENCES. RESPIRATORY RATE WAS EVEN AT 22 BREATHS/MIN. SLIGHTLY LABORED. AUSCULTATED LUNGS, HEARD EXPIRATORY WHEEZING THROUGHOUT. OFFERED TO ADMINISTER PRN BREATHING TREATMENT TO HELP, PATIENT REFUSED. NURSE WAS NOTIFIED, WILL NOTIFY PHYSICIAN.
--- NOTE | 2020-11-21 16:10 | NUR ---
Patient sitting up in chair resting. Asked patient how she was doing, pt reports she gets sob with activity. Patient's oxygen is 95% on room air, respirations non labored. Call light within reach. Legs elevated at this time.
--- NOTE | 2020-11-21 16:25 | NUR ---
Patient requesting breathing treatment. RT notified.
--- NOTE | 2020-11-21 17:30 | NUR ---
Patient denies shortness of breath at this time. Patient states the breathing treatment helped her. No needs at this time. Oxygen saturation is 100% on room air.
--- NOTE | 2020-11-21 18:55 | NUR ---
Patient's significant other asking for nail clippers. This RN declined and told patient and that nurses cannot trim nails in the hospital setting. Patient receptive. Nails do not appear to be too long at this time.
--- NOTE | 2020-11-21 19:04 | NUR ---
IN ROOM FOR REPORT, PT IS AWAKE IN BED TALKING WITH A VISITOR. CALL LIGHT IS CLOSE.
--- NOTE | 2020-11-21 19:21 | NUR ---
PATIENT SAID SHE DIDN'T WANT A SHOWER TODAY BECAUSE SHE GOT A GOOD BED BATH YESTERDAY
--- NOTE | 2020-11-21 21:30 | NUR ---
ADMINISTERED MEDICATION ALONG WITH 2 NORCO FOR 8/10 HIP PAIN. SHE DENIES NAUSEA. SHE STATES SHE HAS SOME SOB WITH EXERTION. SHE IS ON TELE # 9 [address] DESENEX POWDER PLACED UNDER BREASTS AND ARM PITS. SHE DENIES FURTHER NEEDS AT THIS TIME, HER DAUGHTER IS IN ROOM VISITING. CALL LIGHT IS CLOSE.
--- NOTE | 2020-11-21 23:31 | NUR ---
IV ANTIBIOTIC INFUSING WNL ORDERED, IV SITE FLUSHED WNL. WARM BLANKETS PROVIDED. pt HAS CALL LIGHT AND PERSONAL SUPPLIES IN REACH. HOME CPAP WITHIN REACH, pt APPLYING CPAP AT THIS TIME.
--- NOTE | 2020-11-22 00:40 | NUR ---
CHECKED ON PT, SHE IS AWAKE IN THE CHAIR. HELPED HER TO BED. SHE DENIES FURTHER NEEDS. CALL LIGHT IS CLOSE, IV ABX IS IN FUSING FINE.
--- NOTE | 2020-11-22 02:46 | NUR ---
PT IS RESTING WITH EYES CLOSED, RR IS EVEN AND NONLABORED. CALL LIGHT IS CLOSE.
--- NOTE | 2020-11-22 03:35 | NUR ---
PT CALLED ASKING FOR ICE, FRESH ICE AND WATER PROVIDED. PT IS NOW BACK IN CHAIR AND REPORTS 8/10 HIP PAIN. ADMINISTERED 2 NORCO. PT DENIES FURTHER NEEDS AT THIS TIME. CALL LIGHT IS CLOSE.
--- NOTE | 2020-11-22 04:06 | NUR ---
PT'S IV ABX ARE COMPLETE, IV IS SL. PT DENIES FURTHER NEEDS. CALL LIGHT IS CLOSE.
--- NOTE | 2020-11-22 04:43 | NUR ---
PT CALLED STATING SHE HAD SOME SOB. ADMINISTERED PRN NEB TRT. PT DENIES FURTHER NEEDS AT THIS TIME.
--- NOTE | 2020-11-22 06:45 | NUR ---
IN ROOM TO ADMINISTER MEDICATIONS. PT DENIES FURTHER NEEDS AT THIS TIME. CALL LIGHT IS CLOSE.
--- NOTE | 2020-11-22 07:30 | NUR ---
RECEIVED REPORT AROUND 0700, PT WAS AWAKE IN BED. PT HAD NO NEEDS OR CONCERNS AT THAT TIME.
--- NOTE | 2020-11-22 08:40 | NUR ---
PER AM MEETING AND MD UPDATE PATIENT STILL REQUIRING IV ABX. DISCUSSED PLACING PATIENT ON TRANSITIONAL CARE. JJ LATHAM TO VERIFY BENEFIT ELIGABILITY AND ADVISE.
--- NOTE | 2020-11-22 09:00 | NUR ---
NO INSULIN NEEDED THIS AM. MAULIK. LOWER LOBES DIMINISHED, OTHER LOBES CLEAR WITH OCCASIONAL EXP. WHEEZING. ABD SOUNDS WDL, +1 PITTING EDEMA BILAT. LOWER LEGS, +1 PITTING EDEMA FEET. STILL HAS SOB WITH ACTIVITY. NO NEW CONCERNS NOTED AT THIS TIME., WILL CONTINUE TO MONITOR.
--- NOTE | 2020-11-22 10:32 | NUR ---
AT ABOUT 1025 STUDENT RN NOTIFIED ME OF PT HAVING CHEST PAIN/PRESSURE. MD LAN WAS NOTIFIED. EKG ORDERED AND GI COCKTAIL. WILL TAKE V/S AGAIN AFTER EKG IS DONE.
--- NOTE | 2020-11-22 11:42 | NUR ---
PT REPORTE CHEST PAIN AROUND 1030. EKG AND TROPONIN WERE DONE. GI COCKTAIL WAS ALSO GIVEN. LAB IS WDL, SEE EKG FOR RESULTS. CHEST PAIN/TIGHTNESS IS BETTER PT STATED. V/S WDL OVERALL. PT IS ALSO GETTING 3 UNITS OF INSULIN FOR BG OF 210.
--- NOTE | 2020-11-22 12:00 | NUR ---
TRIED SEVERAL TIMES TO CONNECT WITH PT THIS AM. PT USING PHONE EACH TIME, OR HAD [facility] STAFF OR SN IN CARING FOR PT. GAVE BLESSING, WILL TRY AGAIN
--- NOTE | 2020-11-22 13:45 | NUR ---
PT SET UP FOR SHOWER. NEW BED LINNENS ON BED.
--- NOTE | 2020-11-22 15:57 | NUR ---
BILATERAL UPPER LOBES HAVE INSP. AND EXP. WHEEZING PRESENT. PT IS COUGHING MORE ALSO . LOWE LOBES ARE DIMINISHED. OTHERWISE SECOND ASSESSMENT WAS UNCHANGED FROM THE FIRST. PT ALSO DENIES CHEST PAIN/TIGHTNESS AT THIS TIME.
--- NOTE | 2020-11-22 17:25 | NUR ---
WEIGHT LOSS SO FAR HAS BEEN MINIMAL. PT DID WORK WITH PT AND DID WELL WALKING ABOUT 120FT. AT AROUND 1030 PT WAS COMPLAINING OF CHEST PAIN/ TIGHNESS ON HER LEFT SIDE. EKG AND SERIAL TROPONIN LABS WERE NEGATIVE. GI-COCKTAIL WAS GIVEN WHICH HELPED WITH THE PAIN. PT HAS DENIES CHEST PAIN SINCE. V/S WDL OVERALL THIS SHIFT. BEFORE DINNER, PT WAS NOTING SOME CRAMPING IN HER HANDS AND ABDOMEN. WILL CONTINUE TO MONITOR THAT. LOBES AT TIMES WERE CLEAR AND AT TIMES HAD WHEEZING PRESENT. PT DID RECEIVE ONE PRN NEB.
--- NOTE | 2020-11-22 17:32 | EKG ---
[facility] [address] [facility] [place] [address] Signed Sinus rhythm with fusion complexes Low voltage QRS Nonspecific ST and T wave abnormality Abnormal ECG When compared with ECG of 18-NOV-2020 19:19, Sinus rhythm has replaced Junctional rhythm Inverted T waves have replaced nonspecific T wave abnormality in Anterior leads Confirmed by JEROD LAN MD ([id number]) on 11/22/2020 5:31:54 PM Electronically Signed By: JEROD LAN MD 11/22/20 1732 PATIENT NAME: MODESTA CRAWFORD Electrocardiogram DATE OF : 53 PHYSICIAN: JEROD LAN MD REPORT #: [id number] REPORT IS CONFIDENTIAL AND NOT TO BE RELEASED WITHOUT AUTHORIZATION
--- NOTE | 2020-11-22 19:25 | NUR ---
SHIFT REPORT RECEIVED FROM DAYSHIFT YEISON KIRKPATRICK AT BEDSIDE. pt AWAKE AND SITTING ON EDGE OF BED. NO NEEDS VERBALIZED AT THIS TIME, CALL LIGHT IN REACH.
--- NOTE | 2020-11-22 20:09 | NUR ---
IN TO GET PT SOME ICE CHIPS, NO FURTHER NEEDS AT THIS TIME
--- NOTE | 2020-11-22 20:58 | NUR ---
IN TO GET VITALS, ICE WATER AND FRESH ICECHIPS AT BEDSIDE, ASSISTED PT WITH WIPES, NO FURTHER NEEDS AT THIS TIME, PT READY FOR RN
--- NOTE | 2020-11-22 21:30 | NUR ---
ASSESSMENT COMPLETE, VSS. SCHEDULED MEDS GIVEN (SEE EMAR). pt A/OX4, SBA WITH AMBULATION IN ROOM. IV ABX HUNG, IV SITE WNL. BRISK BLOOD RETURN NOTED TO IV SITE. DIMINISHED LUNG SOUNDS OVERALL, NO RR DISTRESS NOTED. HOME CPAP MACHINE IN ROOM. PER REPORT, pt HAS CYST IN GLUTEAL CLEFT/COCCYX AREA AND IT CAN "POP" THIS RN UNABLE TO VISUALIZE CYST AT THIS TIME, NO DRAINAGE NOTED. WILL MONITOR. NO FURTHER NEEDS, CALL LIGHT IN REACH.
--- NOTE | 2020-11-22 21:30 | NUR ---
ASSESSMENT COMPLETE, VSS. SCHEDULED MEDS GIVEN (SEE EMAR). pt A/OX4, SBA WITH AMBULATION IN ROOM. IV ABX HUNG, IV SITE WNL. BRISK BLOOD RETURN NOTED TO IV SITE. DIMINISHED LUNG SOUNDS OVERALL, NO RR DISTRESS NOTED. HOME CPAP MACHINE IN ROOM. PER REPORT, pt HAS CYST IN GLUTEAL CLEFT/COCCYX AREA AND IT CAN "POP" NO DRAINAGE NOTED AT HEALING/PREVIOUS CYST SITE. WILL MONITOR. NO FURTHER NEEDS, CALL LIGHT IN REACH.
--- NOTE | 2020-11-22 22:15 | NUR ---
MADE AWARE BY MARIONETTE PERFORMER ERIKA, pt REPORTING PAIN WITH CURRENT IV SITE, UNABLE TO OBTAIN BLOOD RETURN. IV ABX STOPPED AND PLACED ON STANDBY, MARIONETTE PERFORMER ERIKA WILL LOOK FOR NEW IV SITE AND CALL TEST EXAMINER ANTIONETTE IF NEEDED.
--- NOTE | 2020-11-22 23:00 | NUR ---
NEW IV SUCCESSFULLY PLACED BY MACHINE BINDER STRIPPER ANTIONETTE. PREVIOUS IV DISCONTINUED BY YEISON ADAN, DC WNL, CATHETER TIP INTACT. IV ABX RESUMED PER MD ORDERS. pt RESTING IN CHAIR, HOME CPAP MASK IN HAND. NO FURTHER NEEDS, CALL LIGHT IN REACH.
--- NOTE | 2020-11-23 | NUR ---
in to assist pt to the toilet with iv pole, then back to bed, warm blankwt provided at this time, pt puts on cpap mask no further needs
--- NOTE | 2020-11-23 00:37 | NUR ---
in to provide pt with warm blanket, pt c/o feeling chilly, rn notifided
--- NOTE | 2020-11-23 01:01 | NUR ---
pt AWAKE AND RESTING ALONG EDGE OF BED. HOME CPAP MACHINE OFF, ICE PROVIDED PER pt REQUEST. NO FURTHER NEEDS, CALL LIGHT IN REACH.
--- NOTE | 2020-11-23 02:20 | NUR ---
SHIFT REPORT RECEIVED FROM LASHAE LATHAM. PT SLEEPING.
--- NOTE | 2020-11-23 03:40 | NUR ---
PT CALLS TO USE BR, UP TO BR AND BACK TO BED. ASSESSMENT COMPLETED. IV WNL. BLE 2+ EDEMA. GENERALIZED EDEMA IN BOTH HANDS. PT HAS SOB WITH ACTIVITY. GLUTEAL PAIN 3/10, DENIES NEED FOR INTERVENTION AT THIS TIME. CALL LIGHT IN REACH.
--- NOTE | 2020-11-23 05:43 | NUR ---
IN TO GET VITALS, I&Os, AND DAILY WEIGHT, COFFEE AND ICE CHIPS PROVIDED, NO FURTHER NEEDS
--- NOTE | 2020-11-23 06:11 | NUR ---
SCHEDULED MEDS PROVIDED. PT RIGHT HIP PAIN 8, PRN PAIN MED PROVIDED. NO OTHER NEEDS. CALL LIGHT IN REACH.
== END 2020-11-23 11:22 | disposition swing bed (61) | DRG 872 ==
LOC: ED 18:49 → MS 22:07
PROVIDERS: ADMIT Internal Medicine; ATTEND Internal Medicine
DX: A41.51 Sepsis due to Escherichia coli [E. coli] (principal); N39.0 Urinary tract infection, site not specified; I13.0 Hypertensive heart and chronic kidney disease with heart failure and stage 1 through stage 4 chronic kidney disease, or unspecified chronic kidney disease; I50.32 Chronic diastolic (congestive) heart failure; Z68.43 Body mass index [BMI] 50.0-59.9, adult; Z20.822 Contact with and (suspected) exposure to COVID-19; E11.22 Type 2 diabetes mellitus with diabetic chronic kidney disease; N18.30 Chronic kidney disease, stage 3 unspecified; J44.9 Chronic obstructive pulmonary disease, unspecified; G47.33 Obstructive sleep apnea (adult) (pediatric); K74.60 Unspecified cirrhosis of liver; E03.9 Hypothyroidism, unspecified; E78.5 Hyperlipidemia, unspecified; G25.81 Restless legs syndrome; F39 Unspecified mood [affective] disorder; E66.9 Obesity, unspecified; R07.9 Chest pain, unspecified; D63.8 Anemia in other chronic diseases classified elsewhere; D69.59 Other secondary thrombocytopenia; Z87.891 Personal history of nicotine dependence; Z88.5 Allergy status to narcotic agent; Z79.4 Long term (current) use of insulin; Z79.891 Long term (current) use of opiate analgesic; Z79.51 Long term (current) use of inhaled steroids; Z79.899 Other long term (current) drug therapy
CPT/HCPCS: 36415; 51701; 71045; 80048; 80053; 81001; 83605; 83880; 84484; 85025; 87040; 87077; 87088; 87186; 93005; 93010; 94640; 94760; 97110; 97116; 97530; 99285-25; C9803; J0696; J1650; J1815; J1885; J1940; J2405; J2543; J7030; J7121; U0003

== ENCOUNTER 2020-11-23 11:10 | Inpatient (IN) | payer MEDICARE, OTHER ==
[~2020-11-23] VITALS: Ht 162.6 cm; Wt 145.2 kg
--- NOTE | 2020-11-23 10:00 | NUR ---
PT IN ROOM WATCHING TV. CALL LIGHT IN REACH. DENIES NEEDS AT THIS TIME.
[~2020-11-23 11:10] MED LIST changes: +TRIAMCINOLONE A15 G1 TOP
--- NOTE | 2020-11-23 12:00 | NUR ---
PT IN ROOM WITH EATING LUNCH. CALL LIGHT IN REACH. PT DENIES NEEDS AT THIS TIME.
--- NOTE | 2020-11-23 14:33 | NUR ---
PT IN ROOM WITH KEVIN SITTING IN CHAIR. CALL LIGHT IN REACH. DENIES NEEDS AT THIS TIME.
--- NOTE | 2020-11-23 15:20 | NUR ---
PT TAKEN OFF TELEMETRY SHE IS NOW ON SWING BED STATUS.
--- NOTE | 2020-11-23 18:28 | NUR ---
PT IN ROOM SITTING IN CHAIR. PT REQUESTING BREATHING TX. RESP CALLED.
--- NOTE | 2020-11-23 19:15 | NUR ---
RECEIVED REPORT FROM YEISON KHALIL. pt SITTING ON SIDE OF BED. NEB FINISHED. IV INFUSING. WHITEBOARD UPDATED. pt REPORTED DIFFICULTY COUGHING "STUFF UP" DISCUSSED PULMONARY HYGIENE, DISCUSSED COUGHING AND DEEP BREATHING. pt WILL BE GETTING UP TO THE CHAIR. NO FURTHER REQUESTS AT THIS TIME. CALL LIGHT WITHIN REACH.
--- NOTE | 2020-11-23 19:45 | NUR ---
ASSISTANT SPA DIRECTOR ROUNDING NOTE. BLUE PRINT CONTROL CLERK TO ROOM FOR ALARM SOUNDING. PT SITTING UP AT EDGE OF BED VISITING WITH . PT IN GOOD SPIRITS, LAUGHING AND JOKING. DENIES NEEDS AT THIS TIME. WHITE BOARD UPDATED. CALL LIGHT IN REACH.
--- NOTE | 2020-11-23 20:30 | NUR ---
ROUNDED ON pt. AT BEDSIDE. NO REQUESTS AT THIS TIME. CALL LIGHT WITHIN REACH.
--- NOTE | 2020-11-23 22:15 | NUR ---
IN TO DO ASSESSMENT AND MEDICATIONS. pt REPORTS 7/10 PAIN, DISCUSSED PAIN MANAGMENT OPTIONS. pt WILL WAIT FOR NEXT PAIN MEDICATION WHEN AVAILABLE. NOTED SWELLING IS WORSE IN LEFT LEG THAN RIGHT. NO IV NOTED IN RIGHT ARM. pt REPORTED IT WAS PULLED IT WASN'T WORKING. LEFT IV FLUSHES WELL. WHEEZING NOTED, LUNGS OTHERWISE DIM. pt INDEPENDENT IN ROOM. NO FURTHER REQUESTS AT THIS TIME. CALL LIGHT WITHIN REACH.
--- NOTE | 2020-11-24 00:10 | NUR ---
ROUNDED ON pt. RESTING IN BED. REPORTED 8/10 PAIN IN HIPS. PRN GIVEN (SEE MAR). NO FURTHER REQUESTS AT THIS TIME. CALL LIGHT WITHIN REACH.
--- NOTE | 2020-11-24 02:55 | NUR ---
CALL LIGHT ON. pt RECEIVED JELLO AND ICE FROM YEISON VALDIVIA. CALL LIGHT WITHIN REACH. pt SITTING UP IN CHAIR.
--- NOTE | 2020-11-24 03:20 | NUR ---
UP TO BR, VOIDED LARGE AMOUNT OF YELLOW URINE AND HAD A SMEAR OF GREEN COLORED BM. LOTION APPLIED TO BUTTOCKS. DAILY STANDING WEIGHT 149.6KG
--- NOTE | 2020-11-24 05:06 | NUR ---
CALL LIGHT ON. pt UP TO CHAIR, REQUESTED COFFEE. PROVIDED. SCHEDULED MEDICATION GIVEN (SEE MAR). PAIN OKAY AT THIS TIME. NO FURTHER REQUESTS AT THIS TIME. CALL LIGHT WITHIN REACH.
--- NOTE | 2020-11-24 07:15 | NUR ---
TOOK REPORT ON PT FROM ANA LUISA LATHAM. PT IN ROOM SITTING IN CHAIR. DENIES NEEDS AT THIS TIME.
--- NOTE | 2020-11-24 07:16 | NUR ---
IN TO GIVE REPORT. INSULIN GIVEN. pt REQUESTED PRN PAIN PILL FOR 7/10 HIP PAIN GIVEN (SEE MAR). pt SITTING IN CHAIR. NO FURTHER REQUESTS AT THIS TIME. CALL LIGHT WITHIN REACH.
--- NOTE | 2020-11-24 11:03 | NUR ---
PT IN ROOM WATCHING TV, SITTING IN BED. DENIES NEEDS AT THIS TIME.
--- NOTE | 2020-11-24 12:33 | NUR ---
PT IN ROOM SITTING WITH EATING LUNCH. DENIES NEEDS AT THIS TIME.
--- NOTE | 2020-11-24 16:35 | NUR ---
PT SPENT HER DAY IN ROOM, BETWEEN CHAIR AND BED, WATCHING TV AND TALKING TO HER . PT IS STEADY ON FEET AND FREQUENTLY REQUESTS ICE. PT TO CONTINUE IV ABX AND SWING BED STATUS.
--- NOTE | 2020-11-24 17:55 | NUR ---
PT'S TO BRING TRULICITY FROM HOME TOMORROW AM.
--- NOTE | 2020-11-24 18:30 | NUR ---
PT WITH RUST COLORED LOOSE STOOL, STOOL SAMPLE TESTED FOR HEMOCULT, TEST INTERPRETED POSITIVE. DR. MARTÍNEZ CONTACTED AND NOTIFIED, TELEPHONE ORDER TO CONTINUE TO MONITOR STOOL FOR BLACK TARRY OR HOWIE RED APPEARANCE, ADD STOOL CULTURES FROM STOOL SAMPLE THAT WAS COLLECTED 11/23/20 AND TO ADD CULTURELLE BID, RBOV.
--- NOTE | 2020-11-24 19:04 | NUR ---
RECEIVED REPORT FROM YEISON KHALIL. pt SITTING ON COUCH. 1PA TO STAND. pt MOVED TO CHAIR. CALL LIGHT WITHIN REACH. NO FURTHER REQUESTS AT THIS TIME. WHITEBOARD UPDATED.
--- NOTE | 2020-11-24 21:25 | NUR ---
CALL LIGHT ON. pt REQUESTED PRN PAIN MED FOR 8/10 PAIN, GIVEN WITH SCHEDULED MEDICATIONS. pt HAD BM. BLACKISH BITS FLOATING IN URINE, UNABLE TO USE FOR SAMPLE. WHEN WIPING pt, NORMAL BROWN STOOL WAS NOTED. BARRIER CREAM APPLIED, AREA TENDER. LUNGS DIM. pt HAS UNPRODUCTIVE COUGH. INDEPENDENT IN ROOM. pt RESTING IN BED. ICE PROVIDED. NO FURTHER REQUESTS AT THIS TIME. CALL LIGHT WITHIN REACH.
--- NOTE | 2020-11-24 23:24 | NUR ---
CALL LIGHT ON. PATIENT ASKED FOR WARM BLANKET X2. GIVEN.
--- NOTE | 2020-11-25 | NUR ---
ROUNDED ON pt. IN BATHROOM. BM NOTED. BLACK LIQUID STOOL IN HAT AND WHEN WIPED. STOOL SAMPLE SENT TO LAB. LINENS CHANGED IN CHAIR. pt SEATED IN CHAIR WITH LEGS ELEVATED. WARM BLANKETS PROVIDED. CALL LIGHT WITHIN REACH. NO FURTHER REQUESTS AT THIS TIME.
--- NOTE | 2020-11-25 01:49 | NUR ---
CALL LIGHT ON. pt HAD ANOTHER BM, WIPED AND APPLIED CREAM. BM SIMILAR TO LAST EPISODE. pt REPORTED 7/10 PAIN IN HER HIP, PRN PAIN MEDICATION GIVEN (SEE MAR). NO FURTHER REQUESTS AT THIS TIME. CALL LIGHT WITHIN REACH. pt SITTING IN CHAIR.
--- NOTE | 2020-11-25 02:34 | NUR ---
CALL LIGHT ON. pt ON TOILET. SIMILAR BM TO BEFORE. ASSISTED TO WIPE AND APPLY BARRIER CREAM. pt INDEPENDENT IN ROOM. CALL LIGHT WITHIN REACH.
--- NOTE | 2020-11-25 04:41 | NUR ---
ROUNDED ON pt. SITTING IN CHAIR AWAKE. REPORTED PAIN WAS "OKAY. I CAN WAIT ANOTHER HOUR FOR PAIN MEDICATION." NO REQUESTS AT THIS TIME. CALL LIGHT WITHIN REACH.
--- NOTE | 2020-11-25 04:53 | NUR ---
CALL LIGHT ON. pt RECENTLY VOIDED. DAILY WEIGHT DONE. MORNING MED. NO FURTHER REQUESTS AT THIS TIME. CALL LIGHT WITHIN REACH. pt SITTING IN CHAIR.
--- NOTE | 2020-11-25 06:08 | NUR ---
PRN PAIN MED FOR 7/10 PAIN GIVEN WITH SCHEDULED MEDICATION (SEE MAR). NO REQUESTS AT THIS TIME. CALL LIGHT WITHIN REACH.
--- NOTE | 2020-11-25 07:45 | NUR ---
THIS RN IN PTS ROOM PER PT REQUEST FOR ASSISTANCE WITH WIPING. THIS RN NOTED THAT PT HAD A SMALL RUNNY BLACK NOTED BOWEL MOVEMENT IN THE TOILET
--- NOTE | 2020-11-25 08:30 | NUR ---
THIS RN IN PTS ROOM TO GIVE PT HER MORNING MEDS. PT SITTING UP TO CHAIR AT THIS TIME AND STATES THAT SHE IS DOING WELL AND ALL SHE WANTS IS COFFEE AND ICE CHIPS THIS AM.
--- NOTE | 2020-11-25 08:50 | NUR ---
MED REC COMPLETE
--- NOTE | 2020-11-25 09:35 | NUR ---
PATIENT UP TO BATHROOM AND BACK TO CHAIR. LINEN CHANGED. TEMP TAKEN RN TOOK VITALS. CALL LIGHT IN REACH.
--- NOTE | 2020-11-25 12:15 | NUR ---
PER AM MEETING AND MD REVIEW PATIENT TO CONTINUE IV ABX ON TRANSITIONAL CARE. NO CHANGE IN DISCHARGE PLAN AT THIS TIME, WILL CONTINUE TO FOLLOW UP WITH PATIENT.
--- NOTE | 2020-11-25 12:22 | NUR ---
THIS RN IN PTS ROOM TO GIVE PT HER MIDDDAY MEDS. PT SITTING UP IN CHAIR AND PTS SITTING IN BED. PT REPORTS THAT HER PAIN IS 8/10, THIS RN PROVIDED PT WITH 1 NORCO PER PT REQUEST. PT STATES NO OTHER CONCERNS AT THIS TIME.
--- NOTE | 2020-11-25 12:27 | NUR ---
PATIENT SITTING IN CHAIR PATIENT VISITING WITH . THIS BAND SAW FILER OFFERED SHOWER AFTER LUNCH PATIENT STATED SHE WILL TAKE ONE TOMORROW MORNING. CALL LIGHT IN REACH NOTHING ELSE NEEDED.
--- NOTE | 2020-11-25 14:24 | NUR ---
PT HAS VISITOR-GAVE BLESSING AND WILL RETURN
--- NOTE | 2020-11-25 14:30 | NUR ---
this rn in pts room to assist pt with wiping properly after a bm. this rn used barrier wipes in order to help protect skin
--- NOTE | 2020-11-25 14:50 | NUR ---
this rn in pts room to draw pts blood for stat labs. pt compliant with care
--- NOTE | 2020-11-25 17:15 | NUR ---
THIS RN IN PTS ROOM TO CHECK ON PT. PT STATES THAT SHE IS DOING WELL, SITTING AT THE EDGE OF THE BED EATING DINNER WITH HER SISTER. PTS ANTIBIOTIC STARTED AND SLOWED A BIT DUE TO GAUGE OF PTS IV.
--- NOTE | 2020-11-25 18:18 | NUR ---
PATIENT IN BED RESTING AT THIS TIME. PATIENT WAS SITING ON EDGE OF BED FOR DINNER AND TALKING WITH VISITOR IN ROOM. NEW GOWN GIVEN. CALL LIGHT IN REACH. NO FURTHER NEEDS AT THIS TIME.
--- NOTE | 2020-11-25 19:05 | NUR ---
BEDSIDE REPORT RECEIVED FROM YEISON HAMPTON. pt UP IN CHAIR. CUP OF ICE PROVIDED. CALL LIGHT IN REACH. NO ADDITIONAL REQUESTS.
--- NOTE | 2020-11-25 20:14 | NUR ---
CALL LIGHT ANSWERED. PRN PAIN MEDICATIONS ADMINISTERED REQUESTED FOR 7/10 PAIN IN RIGHT HIP. ICE WATER PROVIDED WITH MEDS. CBG 222, pt STATES "I ATE MY SISTERS FRUIT". SS INSULIN ADMINSITERED. ASSESSMENT COMPLETE. VSS. FAMILY MEMBER IN ROOM. CALL LIGHT IN REACH. NO ADDITIONAL REQUESTS.
--- NOTE | 2020-11-25 21:30 | NUR ---
PATIENT CALLED. ICE CHIPS PROVIDED.
--- NOTE | 2020-11-25 22:45 | NUR ---
RESTROOM CALL LIGHT ANSWERED. pt WITH VOID AND SMALL DARK BROWN/BLACK COLORED STOOL. ASSISTED TO WIPE. pt BACK IN BED. FAMILY PRESENT IN ROOM. NO REQUESTS AT THIS TIME.
--- NOTE | 2020-11-25 23:50 | NUR ---
ICE PROVIDED REQUESTED. pt AWARE NPO AT 0000. CALL LIGHT IN REACH. NO ADDITIONAL REQUESTS.
--- NOTE | 2020-11-26 01:30 | NUR ---
PATIENT CALLED FOR WARM BLANKET. PROVIDED.
--- NOTE | 2020-11-26 01:32 | NUR ---
CALL LIGHT ANSWERED. pt PROVIDED WITH WARM BLANKETS. SITTING UP AT SIDE OF BED. DENIES ADDITIONAL NEEDS AT THIS TIME. PO FLUIDS REMOVED FROM TRAY TABLE, pt NPO SINCE 0000.
--- NOTE | 2020-11-26 03:44 | NUR ---
pt RESTING IN BED WITH EYES CLOSED, HOME CPAP ON. LIGHTS OFF IN ROOM.
--- NOTE | 2020-11-26 05:14 | NUR ---
pt AWAKE RESTING IN BED. VS COMPLETE, STABLE. DAILY STANDING WEIGHT COMPLETE. URINE HAT EMPTIED. pt INSTRUCTED TO REMOVE ALL JEWELRY, DENTURES, STATES WILL WORK ON GETTING RINGS OFF. pt C/O 01/28 PAIN IN RIGHT HIP, ERWIN, PRN PAIN MEDICATION ADMINISTERED WITH SIP OF WATER. CALL LIGHT IN REACH. NO ADDITIONAL REQUESTS.
--- NOTE | 2020-11-26 06:23 | NUR ---
[facility] RAPID COVID TEST DONE PER ORDER. COVID TEST COLLECTED FROM BOTH NARES W/O ISSUE. PT TOLERATED WELL.
--- NOTE | 2020-11-26 06:25 | CONS ---
[facility] [address] [place], [place] [address] Signed DATE OF CONSULTATION: 11/25/2020 CHIEF COMPLAINT: Melena. HISTORY OF PRESENT ILLNESS: Modesta is a 65-year-old obese diabetic female, who had been in the hospital with an E coli urinary tract infection and bacteremia resistant to Rocephin. She is now admitted to our SNF unit for IV Zosyn. She has a long history of chronic anemia with a hemoglobin around 9. She had upper and lower endoscopy with Dr. Hernandze in July of this year. She was anemic at that time and had a positive fit test. She had benign irritated gastric polyps and was H pylori positive. It is unclear if she was treated for the H pylori. She cannot recall having 10 or 14 days of antibiotics. She also had two tiny 5 mm polyps, one in the colon, one in the rectum. One was hyperplastic, the other was adenomatous. She is also known to have significant medical issues including cirrhosis of the liver, severe obesity, COPD, and grade 1 diastolic heart failure. She tells me there is no family history of colon cancer, but two of her sisters have had colonic polyps removed and there is stomach cancer in the family. She said she never had a heart attack. PAST MEDICAL HISTORY: Benign gastric polyps with ulcerations and an adenomatous colonic polyp in July 2020, chronic anemia, positive H pylori, urinary tract infections, grade 1 diastolic heart failure, COPD, hypertension, asthma, sleep apnea, obesity, chronic renal failure, cirrhosis, diabetes, hypothyroidism, hyperlipidemia, restless legs syndrome and mood disorder. PAST SURGICAL HISTORY: Includes a cholecystectomy, hysterectomy, and upper and lower endoscopy August 15, [address] Hernandez. SOCIAL HISTORY: She quit smoking around age 49. She does not drink. Dr. Ashia Dunham is her primary care provider. Dr. Mendoza is her steno pool supervisor. She is and has two children and three stepchildren. She is retired from the [employer]. She does drive. FAMILY HISTORY: There is stomach cancer and coronary artery disease in the family. Two sisters have had colonic polyps. No colon cancer in the family. REVIEW OF SYSTEMS: She tells me she has never had a heart attack. Electronically Signed By: YUE LAUGHLIN MD 11/26/20 0625 PATIENT NAME: MODESTA CRAWFORD CONSULTATION DATE OF : 53 REPORT #: [id number] PHYSICIAN: YUE LAUGHLIN MD PCP: ASHIA DUNHAM MD REPORT IS CONFIDENTIAL AND NOT TO BE RELEASED WITHOUT AUTHORIZATION [facility] [address] [place], [place] [address] Signed ALLERGIES: Morphine, quinine, and tramadol. MEDICATIONS: 1. Spironolactone. 2. Potassium. 3. Insulin. 4. Metolazone. 5. Torsemide. 6. Triamcinolone. 7. [place]. 8. Trazodone. 9. Carvedilol. 10. Levothyroxine. 11. Allopurinol. 12. Atorvastatin. 13. Ropinirole. 14. Magnesium oxide.\E\. 15. Protonix. 16. Psyllium. 17. Albuterol. 18. Advair. 19. Nystatin. 20. Trulicity. PHYSICAL EXAMINATION: VITAL SIGNS: Her blood pressure is 127/73, heart rate 61, respiratory rate 16, temperature 98.3. She is 95% on room air. She is 5 feet 4 inches, 146 kg. GENERAL: Modesta is a 65-year-old female, sitting on the edge of her bed with her sister in the room. She is quite obese with a very full face, heavy neck, very heavy chest and abdomen. She does not appear to be in any acute distress. She has mildly distant breath sounds. HEART: Regular rate and rhythm without murmurs. ABDOMEN: Obese. RECTAL: Not performed today. LABORATORY DATA: Her white blood cell count is 7.7, hemoglobin was 9.3, it is now 8.0. Her mean cell volume is 89. Platelets are 111. BUN is baseline around 50, but it is 55 today. Her creatinine baseline is around 2.28, but it is 2.10 today. Her liver function tests were fine. Albumin is 3.3. Her C diff toxin is pending. Her stool cultures are pending. The left ventricular ejection fraction is about 70%. Electronically Signed By: YUE LAUGHLIN MD 11/26/20 0625 PATIENT NAME: MODESTA CRAWFORD CONSULTATION DATE OF : 53 REPORT #: [id number] PHYSICIAN: YUE LAUGHLIN MD PCP: ASHIA DUNHAM MD REPORT IS CONFIDENTIAL AND NOT TO BE RELEASED WITHOUT AUTHORIZATION [facility] [address] [place] [id number] Signed ASSESSMENT AND PLAN: Modesta is a 65-year-old significantly disabled female with chronic anemia and now melena. I explained to Modesta it is probably worthwhile to repeat the upper endoscopy and particularly biopsy for CLOtest. If it would come back positive, of course she would need that treated. Repeating the colonoscopy at this time would probably be of low yield and it is too late in the day to start a bowel prep. She understands upper endoscopy quite well. She understands there is risk including, but not limited to gas, bloating, crampy abdominal pain, bleeding, perforation requiring surgery, and missed diagnosis. Given her significant past medical history and body habitus, she will need monitored anesthesia care. She has expressed understanding and would like to proceed. This was discussed with the patient, her sister and Dr. Cui. Yue Laughlin MD ALB/MODL /[id number] cc: MD Ashia Bowie MD Dr. Copies: YUE LAUGHLIN MD ~ Electronically Signed By: YUE LAUGHLIN MD 11/26/20 0625 PATIENT NAME: MODESTA CRAWFORD CONSULTATION DATE OF : 53 REPORT #: [id number] PHYSICIAN: YUE LAUGHLIN MD PCP: ASHIA DUNHAM MD REPORT IS CONFIDENTIAL AND NOT TO BE RELEASED WITHOUT AUTHORIZATION
--- NOTE | 2020-11-26 07:41 | NUR ---
PT OFF FLOOR TO SURGERY.
--- NOTE | 2020-11-26 09:30 | NUR ---
PT BACK TO FLOOR. MAGNESIUM INFUSION RESTARTED.
--- NOTE | 2020-11-26 10:00 | NUR ---
Spoke with pt and she cont. to want to dc to home today. Asked if she doesn't want to stay and finish her IV antibiotics. Pt denies and states she doesn't like staying here and wants to go home. She plans on returning daily for OP IV therapy until antibiotics are completed.
--- NOTE | 2020-11-26 10:24 | NUR ---
ASSESSMENT COMPLETED. VITALS TAKEN AND STABLE. MEDICAITONS ADMINISTERED. PT REPORTING 7/10 PAIN IN RIGHT HIP. PT IS ALERT AND ORIENTED. BREAKFAST AT BEDSIDE. DENIES FURTHER NEEDS. CALL LIGHT IN REACH.
--- NOTE | 2020-11-26 12:00 | NUR ---
PT SITTING UP IN CHAIR FOR LUNCH DRESSED SELF IN [place]. SISTER AT BEDSIDE. DR MARTÍNEZ ROUNDED AND DISCUSSED PLAN OF CARE. ALL QUESTIONS ANSWERED.
--- NOTE | 2020-11-26 12:06 | NUR ---
PT ALERT, ORIENTED AND SITTNG IN CHAIR VISITING WITH VISITOR. PT FEELING BETTER, NOT SLEEPING WELL SHE WOULD LIKE. DECIDING WHETHER TO DC AND HAVE IV ANTIBIOTICS OP, OR STAY ON TRANS. BED STATIS AND COMPLETE. GAVE ENCOURAGEMENT, BLESSING. WILL FOLLOW NEEDED
--- NOTE | 2020-11-26 13:00 | NUR ---
PT REQUESTING TESSALON MARY FOR COUGH. DR MARTÍNEZ NOTIFIED.
--- NOTE | 2020-11-26 15:08 | NUR ---
ROUNDED ON PT. PT RESTING WITH CPAP IN PLACE. PT REQUESTING TESSALON PERLS. 200MG ADMISNTERED. BILAT LOWER EXTREMITIES WASHED AND LOTION APPLIED. ALLEVYN PLACED ON LEFT KIMBLE ABRASION. PT WITH NO OTHER NEEDS. CALL LIGHT IN REACH.
--- NOTE | 2020-11-26 15:48 | NUR ---
PT BROUGHT TO FROM LOBBY TO VISIT FAMILY. NECK BAND MAKER TO CALL WHEN PATIENT IS DONE VISITING.
--- NOTE | 2020-11-26 18:00 | NUR ---
ROUNDED ON PT. PT SITTING UP IN CHAIR EATING DINNER. MEDICATIONS GIVEN. PT DENEIS FURTHER NEEDS. CALL LIGHT IN REACH.
--- NOTE | 2020-11-26 19:05 | NUR ---
BEDSIDE REPORT RECEIVED FROM YEISON QUEZADA. pt RESTING IN BED AWAKE. DENIES NEEDS AT THIS TIME. CALL LIGHT WITHIN REACH.
--- NOTE | 2020-11-26 21:33 | NUR ---
pt AWAKE SITTING UP IN BED. VSS. SCHEDULED MEDICATIONS ADMINISTERED. CBG 195, SS INSULIN ADMINISTERED. ASSESSMENT COMPLETE. pt RATES PAIN 8/10 IN RIGHT HIP, PRN PAIN MEDICATION ADMINISTERED. HOME CPAP AT BEDSIDE. WARM BLANKETS AND ICE CHIPS PROVIDED. CALL LIGHT IN REACH.
--- NOTE | 2020-11-26 22:59 | NUR ---
CALL LIGHT ANSWERED. ICE CHIPS PROVIDED REQUESTED. CALL LIGHT IN REACH.
--- NOTE | 2020-11-27 00:41 | NUR ---
CHECKED ON pt. STATES "I'M HURTING, BEEN ABLE TO SLEEP A LITTE". pt RATES PAIN 8/10 IN RIGHT HIP. KPAD IN PLACE. pt DENIES NEEDS AT THIS TIME, REQUESTS PRN PAIN MEDICATION AVAILABLE.
--- NOTE | 2020-11-27 01:05 | NUR ---
PRN PAIN MEDICATION ADMINISTERED REQUESTED. pt CONTINUES TO RATE PAIN 8/10 IN RIGHT HIP.RESTING IN BED. HOME CPAP REAPPLIED AT THIS TIME. CALL LIGHT IN REACH. NO ADDITIONAL REQUESTS.
--- NOTE | 2020-11-27 02:40 | NUR ---
CALL LIGHT ANSWERED, CUP OF ICE PROVIDED. NO ADDITIONAL REQUESTS.
--- NOTE | 2020-11-27 05:07 | NUR ---
CALL LIGHT ANSWERED. pt SITTING UP AT SIDE OF BED. ICE PROVIDED REQUESTED. STANDING WEIGHT INCREASED 0.2 KG FROM PREVIOUS DAY. URINE HAT EMPTIED. pt RATES PAIN 6/10 "IT'S BETTER". DENIES ADDITIONAL NEEDS. CALL LIGHT WITHIN REACH.
--- NOTE | 2020-11-27 06:54 | NUR ---
IN pt ROOM FOR SCHEDULED MEDICATION ADMINISTRATION. pt SITTING UP AT SIDE OF BED TO ORDER BREAKFAST. pt NOW STATING THAT SHE THINKS SHE WOULD LIKE TO LEAVE TODAY AND COME BACK FOR OUTPATIENT ANTIBIOTICS. pt STATES "I HAVE A LOT GOING ON IN MY HEAD. A LOT OF THINGS I NEED TO DO AT HOME. WE ARE SELLING THE HOUSE." CALL LIGHT IN REACH. NO REQUESTS AT THIS TIME. SISTER ON COUCH.
--- NOTE | 2020-11-27 07:19 | NUR ---
this rn received report from shayy braga. pt sitting up and has a visitor at this time. this rn will be back around later.
--- NOTE | 2020-11-27 08:17 | NUR ---
Pt to [facility] care program on 11/23/20 for IV antibiotic treatment due to recurrent UTI of Ecoli which is resistant to Rocephin. Pt to complete 7 day course of IV Zosyn. Pt has multiple chronic medical issues with frequent readmission. Pt lives with spouse and her adult children. Spouse and children complete house hold task, shopping, and transport for patient. Pt denies need for DME. Plan is to dc to home.
--- NOTE | 2020-11-27 13:38 | NUR ---
PT INDEPENDENT IN ROOM. PT IS SET UP FOR A SHOWER AND WILL CALL WHEN FINISHED. NO FURTHER NEEDS AT THIS TIME.
--- NOTE | 2020-11-27 16:00 | NUR ---
Report received from Bernice LATHAM. Pt sitting up in chair, states having pain but reports it as tolerable and denies need for medication at this time. RT in room for ricky [place]. No further needs at this time, call light in reach.
--- NOTE | 2020-11-27 16:50 | NUR ---
CBG checked by YEISON Stark.
--- NOTE | 2020-11-27 17:05 | NUR ---
Scheduled medications administered, pt up in chair eating dinner, has no needs at this time. Call light in reach
--- NOTE | 2020-11-27 18:21 | NUR ---
Pt resting in bed, IVF and ABX infusing. I/O's complete. Pt has no needs at this time, call light in reach
--- NOTE | 2020-11-27 19:44 | NUR ---
RECEIVED REPORT FROM DAY SHIFT RN. PATIENT IS RESTING IN BED. PATIENT IS VISITING WITH . PATIENT DENIES ANY NEEDS. CALL LIGHT IN REACH.
--- NOTE | 2020-11-27 21:10 | NUR ---
ROUNDED CHARGE. pt SITTING UP AT SIDE OF BED. CUP OF ICE PROVIDED. PRIMARY RN IN ROOM. pt HAS NO CONCERNS AT THIS TIME.
--- NOTE | 2020-11-27 21:45 | NUR ---
PATIENT ASSESMENT COMPLETED. PATIENT IS SITTING UP ON THE EDGE OF THE BED. PATIENTS VITALS TAKEN AND RECORDED. INTAKE AND OUTPUT RECORDED. PATIENTS EVENING MEDICATIONS GIVEN PER ORDER. PATIENT RATES PAIN AT A 5/10. PATIENT WOUD LIKE HER PRN PAIN MEDICATION WHEN AVAILABLE. EDUCATED PATIENT ON NEXT AVAILABLE TIME. PATIENT VERBALIZES UNDERSTANDING. PATIENT DENIES ANY FURTHER NEEDS. CALL LIGHT IN REACH.
--- NOTE | 2020-11-27 22:41 | NUR ---
PATIENT GIVEN PRN PAIN MEDICATION FOR 7/10 PAIN IN HER BACK. PATIENT ALSO REPORTS A COUGH. PTN MEDICATION GIVEN PER ORDER. PATIENT DENIES ANY FURTHER NEEDS. CALL LIGHT IN REACH.
--- NOTE | 2020-11-28 01:51 | NUR ---
PATIENT IS RESTING IN BED WITH EYES CLOSED. PATIENT IS WEARING CAP AT THIS TIME. BREATHING IS EVEN AND UNLABORED. CALL LIGHT IN REACH.
--- NOTE | 2020-11-28 02:36 | NUR ---
PATIENT REPORTS 7/10 PAIN IN HER LOWER BACK. PATIENT GIVEN PRN PAIN MEDICATION PER ORDER. PATIENT PROVIDED WITH ICE CHIPS. NO FURTHER NEEDS NOTED. CALL LIGHT AND BELONGINGS WITHIN REACH.
--- NOTE | 2020-11-28 04:57 | NUR ---
PATIENT CALLED AND REQUIRED ASSISTANCE TO MOVED TABLE NEXT TO RECLINER. PATIENTS DAILY WEIGHT OBTAINED AND RECORDED. INTAKE AND OUPUT RECORDED. PATIENT IS NOW RESTING IN RECLINER. PATIENT DENIES ANY FURTHER NEEDS. CALL LIGHT AND BELONGINGS ARE WITHIN REACH.
--- NOTE | 2020-11-28 06:29 | NUR ---
MORNING MEDICATIONS GIVEN PER ORDER. PATIENT RATES PAIN IN HER LOWER BACK AT A 7/10. PATIENT GIVEN PRN PAIN MEDICATION PER ORDER. PATIENT IS SITTING UP ON THE BED. NO FURTHER NEEDS NOTED. CALL LIGHT AND BELINGINGS WITHIN REACH.
--- NOTE | 2020-11-28 09:55 | NUR ---
It was my pleasure to meet with Rebeca this morning in regards to the care she is receiving in the hospital. Rebeca states that her care has been "wonderful", she states that she is ready to go home, but she wants to finish her antibiotic treatment so the she can "get better". Rebeca expresses no concerns over the care that she has received, and states "the nurses always take good care of me."
--- NOTE | 2020-11-28 11:29 | NUR ---
PT. HAD AN INCONTINENT VOID. ATTENDS CHANGED AND BARRIER CREAM APPLIED FOR REDNESS. PT. HAS BEEN UP TO THE COMMODE BUT COULD NOT HAVE A BM. LEFT RESTING WITH CALL LIGHT IN REACH.
--- NOTE | 2020-11-28 16:41 | NUR ---
Spoke with Rebeca. She is feeling better and plans on finishing antibiotics and then dc to home on Wednesday.
--- NOTE | 2020-11-28 17:21 | NUR ---
Medicare letter of dc given with patient survery. Notified I will picker/puller tomorrow. Pt states understanding of dc and wanting to leave tomorrow when antibiotics are completed.
--- NOTE | 2020-11-28 17:30 | NUR ---
PT REPORTS SHOULDER PAIN THAT HAS BEEN ONGOING FOR 3 DAYS. DESCRIBES ACHING. ADMIN. NORCO. AMBULATING AROUND THE ROOM INDEPENDENTLY. TOLERATING WELL. PT. LEFT RESTING IN CHAIR EATING DINNER.
--- NOTE | 2020-11-28 20:22 | NUR ---
ASSISTED PT BACK TO BED FROM RESTROOM. PT DENIES FURTHER NEEDS AT THIS TIME. CALL LIGHT IS CLOSE.
--- NOTE | 2020-11-28 21:30 | NUR ---
IN TO GET VITALS, ICE WATER PROVIDED, NO FURTHER NEEDS AT THIS TIME
--- NOTE | 2020-11-28 21:41 | NUR ---
UP WALKING IN ROOM, CBG 202 RECEIVED 3 UNITS INSULIN. COOP WITH ASSESSMENT, ON ROOM AIR. LUNGS DIM AT BASES. CPAP AT BEDSIDE. EDEMA LE ENCOURAGED TO ELEVATED LEGS, RECEPTIVE, MEDICATED WITH NORCO C/O 5/10 PAIN.
--- NOTE | 2020-11-29 00:38 | NUR ---
In bed,using CPAP, turns and repositions self, no further c/o pain, fluids and call light at bedside
--- NOTE | 2020-11-29 00:50 | NUR ---
IN TO PROVIDE PT A WARM BLANKET, PT MOVED TO THE CHAIR INDPENDENTLY, NO FURTHER NEEDS AT THIS TIME
--- NOTE | 2020-11-29 01:39 | NUR ---
RECEIVED REPORT FROM KATHIE LATHAM. PATIENT IS RESTING IN RECLINER WITH EYES CLOSED, RR 18. CALL LIGHT IN REACH.
--- NOTE | 2020-11-29 02:27 | NUR ---
PATIENT REPORTS 7/10 PAIN IN HER LOWER BACK. PATIENT GIVEN PRN PAIN MEDICATION PER ORDER. PATIENT DENIES ANY FURTHER NEEDS. CALL LIGHT AND BELONGINGS ARE WITHIN REACH.
--- NOTE | 2020-11-29 03:47 | NUR ---
PATIENT IS RESITNG IIN BED WITH EYES CLSOED, HOME CPAP WORN. RR 17. CALL LIGHT IN REACH.
--- NOTE | 2020-11-29 07:00 | NUR ---
PATIENTS MORNING MEDICATIONS GIVEN PER ORDER. PATIENT GIVEN PRN PAIN MEDICATION FOR 7/10 PAIN MEDICATION PER ORDER. NO FURTHER NEEDS NOTED. CALL LIGHT IN REACH.
--- NOTE | 2020-11-29 07:35 | NUR ---
REPORT RECEIVED FROM NIGHT RN AND PT. CARE RESUMED. PT. IS UP IN THE CHAIR EATING BREAKFAST. ALERT AND ORIENTED. LUNGS. DIM. IN BASES. PT. DENIES PAIN. +2 EDEMA STILL PRESENT BLE. PT. IS AMBULATING INDEPENDENTLY IN THE ROOM. IV SITES WNL AND FLUSH WELL. PT. REPORTS THAT SHE IS STILL HAVING DARK/BLACK STOOLS. DISCUSSED POC AND MEDS. PT. LEFT RESTING IN BED WITH CALL LIGHT IN REACH.
--- NOTE | 2020-11-29 09:50 | NUR ---
Picked up medicare dc letter and TC papers. Pt denies c/o. Anxious to go home following antibiotics. No change in plan for dc.
--- NOTE | 2020-11-29 11:59 | NUR ---
PT ALERT, ORIENTED AND SITTING IN CHAIR WITH TV ON. PT LOOKING FORWARD TO [place] TODAY. STILL IS PLANNING ON MOVING LATER THIS MONTH TO [place]. EXPRESSED SAD- NESS IN LEAVING FAMILY HERE, GOING TO MORE FAMILY IN [place]. ENCOURAGEMENT GIVEN TO PT, PT REQUESTED PRAYER. WILL FOLLOW NEEDED
--- NOTE | 2020-11-29 12:58 | NUR ---
ALL DISCHARGE INSTRUCTIONS REVIEWED WITH PATIENT AND ALL QUESTIONS ANSWERED. PT. LEFT WITH ALL BELONGINGS VIA WHEELCHAIR. 2 IV REMOVED WITH CATH. INTACT. PICKED UP.
== END 2020-11-29 12:58 | disposition home or self-care (01) | DRG 690 ==
LOC: MS 11:10
PROVIDERS: ADMIT Internal Medicine; ATTEND Internal Medicine
DX: N39.0 Urinary tract infection, site not specified (principal); I13.0 Hypertensive heart and chronic kidney disease with heart failure and stage 1 through stage 4 chronic kidney disease, or unspecified chronic kidney disease; I50.32 Chronic diastolic (congestive) heart failure; Z68.43 Body mass index [BMI] 50.0-59.9, adult; K52.1 Toxic gastroenteritis and colitis; R78.81 Bacteremia; B96.20 Unspecified Escherichia coli [E. coli] as the cause of diseases classified elsewhere; G47.33 Obstructive sleep apnea (adult) (pediatric); Z20.822 Contact with and (suspected) exposure to COVID-19; J44.9 Chronic obstructive pulmonary disease, unspecified; T36.8X5A Adverse effect of other systemic antibiotics, initial encounter; K74.60 Unspecified cirrhosis of liver; E78.5 Hyperlipidemia, unspecified; E11.22 Type 2 diabetes mellitus with diabetic chronic kidney disease; N18.30 Chronic kidney disease, stage 3 unspecified; E03.9 Hypothyroidism, unspecified; E66.01 Morbid (severe) obesity due to excess calories; D69.59 Other secondary thrombocytopenia; D63.1 Anemia in chronic kidney disease; D63.8 Anemia in other chronic diseases classified elsewhere; G25.81 Restless legs syndrome; F39 Unspecified mood [affective] disorder; Z90.49 Acquired absence of other specified parts of digestive tract; Z87.891 Personal history of nicotine dependence; Z90.710 Acquired absence of both cervix and uterus; Z88.5 Allergy status to narcotic agent; Z88.8 Allergy status to other drugs, medicaments and biological substances
CPT/HCPCS: 36415; 80053; 83735; 84100; 85025; 85610; 86850; 86900; 86901; 86920; 87045; 87046; 87493; 94640; 94668; 94760; 97110; C9803; J1335; J1815; J2543; J3475; U0003

== ENCOUNTER → 2020-11-26 | Day surgery (SDC) | payer MEDICARE, OTHER ==
--- NOTE | 2020-11-26 08:45 | NUR ---
11/26/20 0845 Tricia Baker 0831-PATIENT ARRIVED TO PACU NONAROUSABLE 15L MASK DECREASED TO 10L PATIENT BECOMES REACTIVE TO VERBAL AND TACTILE STIMULI. PATIENT COUGHING ORAL AIRWAY REMOVED. PATIENT REPOSITIONED IN BED WITH RNS MULTIPLE RNS ASSISTANCE. 0835-PATIENT AWAKE DENIES PAIN OR NAUSEA COUGHING SUCTIONED WHITE SPUTUM. 6L MASK RR EVEN. HOB ELEVATED. 0843-PATIENT AWAKE CONTINUES TO COUGH AND BE SUCTIONED PLACED ON 2L NC RR EVEN 97% DENIES PAIN OR NAUSEA.
--- NOTE | 2020-11-26 17:06 | OR ---
[facility] [address], [place] [address] Signed DATE OF OPERATION: 11/26/2020 SURGEON: Yue Laughlin MD PREOPERATIVE DIAGNOSES: 1. Melena. 2. Chronic anemia. 3. Chronic renal failure. 4. History of H pylori 07/2020. 5. History of benign gastric polyps 07/2020. 6. History of stomach cancer in the family. 7. History of cirrhosis. POSTOPERATIVE DIAGNOSES: 1. Very minimal gastritis. 2. Minimal gastric polyp x1. 3. Retained food, concerning for diabetic gastroparesis. PROCEDURE: EGD with CLOtest. ESTIMATED BLOOD LOSS: None. FINDINGS: Modesta had retained food in much of her antrum. She probably has some level of diabetic gastroparesis. There was very minimal irritation in the stomach, I think mainly from the food. Clinically, it is probably insignificant. It certainly does not represent her melena. There were no ulcerations that we could find. There was no significant areas of concern. There was no blood whatsoever. We could not get our camera through the food into the pylorus or out in the duodenum. INDICATIONS: Modesta is a 65-year-old obese female, who has been in our hospital with an E coli related urinary tract infection and bacteremia. It was resistant to Rocephin. She has been admitted to our nursing home unit to have IV Zosyn for a week. She has a long history of renal failure with chronic anemia. She is known to have melena. She underwent both upper and lower endoscopy in July of this year with Dr. Hernandez. She had several small benign irritated gastric polyps that were removed. She also had a biopsy consistent with H pylori. She cannot recall taking 10-14 days of antibiotics. Electronically Signed By: YUE LAUGHLIN MD 11/26/20 1701 PATIENT NAME: MODESTA CRAWFORD OPERATIVE REPORT DATE OF : 53 REPORT #: [id number] PHYSICIAN: YUE LAUGHLIN MD PCP: MINDA CRESPO MD REPORT IS CONFIDENTIAL AND NOT TO BE RELEASED WITHOUT AUTHORIZATION [facility] [address], [place] [address] Signed She also had a colonoscopy which revealed an adenomatous polyp and no other major issues. There is stomach cancer in the family as well. She is said to have cirrhosis of the liver along with mild grade 1 diastolic heart failure. She did have some melena while here in our nursing home unit. Therefore, I was asked to repeat the upper endoscopy by the Internal Medicine Service. I had met with Modseta yesterday and reviewed the above findings with her. She understands upper endoscopy quite well. She understands there is risk including, but not limited to gas bloating, crampy abdominal pain, bleeding, perforation requiring surgery, and missed diagnosis. Because of her morbid obesity and medical comorbidities, we asked an anesthesia provider to help us with increased monitoring and sedation with propofol. That represented a brownlee decision and she has a very full face, heavy neck, heavy chest and abdomen. She needed airway control throughout the procedure. She had expressed understanding and wished to proceed. PROCEDURE NOTE: Modesta was taken into our endoscopy suite and placed in the supine semi-recumbent position. She was given IV sedation with propofol per our nurse core loader. A bite block was utilized for the case. The adult gastroscope was introduced and advanced out into the stomach under direct visualization of camera. She still had a significant amount of retained food in the antrum of her stomach. We made efforts to get around the food into the pyloric channel and out of the duodenum. This was unsuccessful. Back in the stomach, she had very minimal irritation, I suspect most of that is from the food. There was no blood whatsoever in the stomach. There were no ulcerations. She had one tiny benign-appearing polyp. We took a single biopsy of the antrum for CLOtest. Otherwise, the incisura body and fundus of the stomach were unremarkable. I really did not see any obvious congestive gastropathy that might be related to her cirrhosis. I really could not see an obvious hiatal hernia. The scope was withdrawn up through the area of the GE junction, which was compliant without stricture. No gastric or esophageal varices. Really, no disruption to the Z-line. No Tapia's mucosa. No distal esophagitis. The middle and upper esophagus were unremarkable. After this, the gas was suctioned out and the gastroscope removed. Modesta tolerated procedure quite well. RECOMMENDATIONS: Modesta will be returned to her nursing home unit. She will resume all chronic medications and orders including her diet. We will follow up the CLOtest for H pylori. Yue Laughlin MD Electronically Signed By: YUE LAUGHLIN MD 11/26/20 1706 PATIENT NAME: MODESTA CRAWFORD OPERATIVE REPORT DATE OF : 53 REPORT #: [id number] PHYSICIAN: YUE LAUGHLIN MD PCP: MINDA CRESPO MD REPORT IS CONFIDENTIAL AND NOT TO BE RELEASED WITHOUT AUTHORIZATION [facility] [address] [address] Signed ALB/MODL /[id number] cc: MD Jeremiah Bowie MD Gwen Libby, MD Copies: YUE LAUGHLIN MD, FADI H MD ~ Electronically Signed By: YUE LAUGHLIN MD 11/26/20 1706 PATIENT NAME: MODESTA CRAWFORD OPERATIVE REPORT DATE OF : 53 REPORT #: [id number] PHYSICIAN: YUE LAUGHLIN MD PCP: MINDA CRESPO MD REPORT IS CONFIDENTIAL AND NOT TO BE RELEASED WITHOUT AUTHORIZATION
== END ==
LOC: OPS 07:18 → DS 08:30 → OPS 08:30
PROVIDERS: ATTEND Colon & Rectal Surgery
PROC: 0DJ08ZZ Inspection of Upper Intestinal Tract, Via Natural or Artificial Opening Endoscopic (ICD-10-PCS; principal; 2020-11-26 08:30)
DX: K29.70 Gastritis, unspecified, without bleeding (principal); K31.7 Polyp of stomach and duodenum; D50.0 Iron deficiency anemia secondary to blood loss (chronic); I13.0 Hypertensive heart and chronic kidney disease with heart failure and stage 1 through stage 4 chronic kidney disease, or unspecified chronic kidney disease; I50.30 Unspecified diastolic (congestive) heart failure; E11.22 Type 2 diabetes mellitus with diabetic chronic kidney disease; N18.9 Chronic kidney disease, unspecified; Z79.4 Long term (current) use of insulin; K74.60 Unspecified cirrhosis of liver; G47.33 Obstructive sleep apnea (adult) (pediatric); E66.01 Morbid (severe) obesity due to excess calories; Z68.44 Body mass index [BMI] 60.0-69.9, adult; I25.10 Atherosclerotic heart disease of native coronary artery without angina pectoris; K21.9 Gastro-esophageal reflux disease without esophagitis; G89.29 Other chronic pain; M54.9 Dorsalgia, unspecified; M79.606 Pain in leg, unspecified; J44.9 Chronic obstructive pulmonary disease, unspecified; Z80.0 Family history of malignant neoplasm of digestive organs; Z88.5 Allergy status to narcotic agent; Z88.8 Allergy status to other drugs, medicaments and biological substances; Z87.891 Personal history of nicotine dependence
CPT/HCPCS: 86677; J2704

== ENCOUNTER 2022-03-22 18:15 | Inpatient (IN) | payer MEDICARE ==
[~2022-03-22] VITALS: Ht 162.6 cm; Wt 122.9 kg
[~2022-03-22 18:15] MED LIST changes: +MAGNESIUM250 M1 PO; -MAGNESIUM400 MG PO
--- NOTE | 2022-03-23 02:30 | NUR ---
PT ARRIVED VIA TRANSPORT FROM [place] AT THIS T [place], SHE IS ALERT AND ORIENTED. TRANSPORT STAFF GAVE REPORT ON TRAVEL, PAIN, NAUSEA, AND SLEEP IN TRANSPORT WELL REPORT OF V/S STABLE DURING TRANSPORT
--- NOTE | 2022-03-23 05:15 | NUR ---
PATIENT TO [facility] ROOM 124 FROM CCU. TELEPHONE REPORT FROM LALA LATHAM. JENI TROY IN ROOM SETTING UP BIPAP. PATIENT APPEARS DROWSY, NO COMPLAINTS OF PAIN AT THIS TIME, PATIENT STATES " EVERYTHING IS TOLERABLE". BLOOD CULTURES TO BE DRAWN THIS MORNING WITH AM LABS. PLAN TO [facility] PER AUG. CALL LIGHT WITHINR EACH. PATIENT [id number].
--- NOTE | 2022-03-23 07:45 | NUR ---
PT SITTING UP IN RECLINER AT TIME OF SHIFT REPORT. C/O LEG PAIN STATES SHE NORMALLY TAKES HYDROCODONE. LEGS ARE RESTLESS PT MOANING. TYLENOL AND REQUIP ADMINISTERED. FRESH H20 AND ICE PROVIDED CALL LIGHT IN HAND. PT AGREES SHE IS READY FOR BREAKFAST, DENIES OTHER NEEDS AT THIS TIME
--- NOTE | 2022-03-23 08:25 | NUR ---
PT STATES HER LEGS FEEL A LITTLE BETTER BUT NOT MUCH. NOTE SENT TO DR MARTÍNEZ REPORTING NORMAL USE OF HYDRO AND C/O LEG PAIN. BREAKFAST IS SERVED, PT REMAINS IN RECLINER SELF FEEDING AND TALKING ON THE PHONE
[2022-03-23] MEDS ORDERED: ZANAFLEX4 MG PO (09:15)
[2022-03-23] MEDS ORDERED: ESTRADIOL42.5 GM PV (09:20)
[2022-03-23] MEDS ORDERED: NYSTOP60 GM TOP (09:21)
[2022-03-23] MEDS ORDERED: FOLIC ACID1 MG PO (09:21)
[2022-03-23] MEDS ORDERED: FEROSUL325 MG PO (09:24)
[2022-03-23] MEDS ORDERED: POTASSIUM99 M1 PO (09:26)
[2022-03-23] MEDS ORDERED: FUROSEMIDE40 MG PO (09:26)
--- NOTE | 2022-03-23 09:41 | NUR ---
PT CONTINUES UP IN THE CHAIR BREAKFAST WELL TOLERATED. STATES SHE HOPES SHE CAN GO HOME TOMORROW. NEEDED ITEMS IN REACH, TV IS ON. PT STILL HAS PAIN IN HER LEFT LE AT THIS TIME DESCRIBES IT SHARP PAIN.
--- NOTE | 2022-03-23 10:50 | NUR ---
ORDERS TO MOVE PT TO CCU, REPORT GIVEN TO RN. BOLUS STARTED PER DR MARTÍNEZ, PT TRNSFERRED VIA CHAIR.
--- NOTE | 2022-03-23 11:30 | NUR ---
Patient arrived from [place] via bedside chair at 1045. Patient is alert, oriented, able to follow commands and converse appropriately. monorail crane operator, BSC, and medications completed along with vitals. Patient remains in bedside chair waiting for lunch. Ice water taken to patient. Denies any needs at this time. Personal items and call light within reach.
--- NOTE | 2022-03-23 12:07 | NUR ---
Patient sitting in bedside chair eating lunch. Visitor at bedside who brought longer phone charging cord. repairer resistance welding machines and BSC completed. Patient denies any needs at this time. Personal items and call light within reach.
--- NOTE | 2022-03-23 13:25 | NUR ---
PT BLADDER SCANNED FOR [address] MARTÍNEZ UPDATED. GRAF CATHETER INSERTED. WELL TOLERATED BY PT. 125 MLS OF URINE FOR IMMEDIATE RETURN
--- NOTE | 2022-03-23 13:40 | NUR ---
PT CALLED FOR PAIN MEDICATION HER HIP WAS HURTNG. ADMINISTERED 1 NORCO. PT ON PHONE AND DENIES FURTHER NEEDS.
--- NOTE | 2022-03-23 13:48 | NUR ---
WASHED DOWN PATIENT LEGS PER REQUEST. REMOVED STOCKING FROM RIGHT LEG AND PLACED ON LEFT LEG PER REQUEST. PLACED LOTION ON PATIENT'S BACK. PATIENT LEFT IN BED WATCHING TV. PATIENT DENIES ANY FURTHER NEEDS. PERSONAL ITEMS AND CALL LIGHT WITHIN REACH.
--- NOTE | 2022-03-23 14:12 | NUR ---
PATIENT BACK UP TO BEDSIDE CHAIR. REQUIRES 1 PERSON ASSIST FOR BALANCE AND CORD CONTROL. PATIENT ABLE TO STAND, AMBULATE, AND SIT WITH MINIMAL ASSISTANCE. PERSONAL BELONGINGS AND CALL LIGHT WITHIN REACH.
--- NOTE | 2022-03-23 14:28 | NUR ---
PT ALERT,ORIENTED AND SEEMS TO REMEMBER ME FROM PREVIOUS ADMISSION. PT SAID SHE HAD JUST ARRIVED ON PLANE FROM [place] AND IMMEDIATELY FELT BAD. PT JUST MOVED FROM M/S TO CCU. HAD GOOD VISIT, PT REQUESTED PRAYER. LEFT G.POST AND BLESSING. WILL FOLLOW
--- NOTE | 2022-03-23 14:30 | NUR ---
INTO ROOM TO ASSESS PATIENT. PATIENT LYING IN BED WATCHING TV. PATIENT STATES HER AND HER RECENTLY SPENT A YEAR IN [place] LIVING WITH HER DAUGHTER. PATIENT STATES THEY HAVE RECENTLY FOUND A PLACE IN [facility]. PATIENT DOES HVE PROBLEMS WITH MOBILITY FOR WHICH SHE HAS A WALKER, CANE AND ELECTRIC WHEELCHAIR. PATIENT STATES HER NEW HOME HAS A RAMP TO THE INSIDE. PATIENT STATES HER WILL BE AVAILABLE TO ASSIST HER AT DISCHARGE. PATIENT IS STILL ABLE TO DRIVE THOUGH SHE USUALLY HAS A FAMILY MEMEBER DRIVE HER TO THE STORE AND TO HER APPOINTMENT. NO FINANCIAL NEEDS PER THE PATIENT AT THIS TIME. PATIENT STATES SHE WISHES TO CONTINUE TO SEE HER PCP EVEN THOUGH SHE WILL BE LIVING IN [facility]. NO FURTHER NEEDS OR REQUEST FROM THE PATIENT AT THIS TIME. WILL CONTINUE TO FOLLOW UP DURING HER VISIT.
--- NOTE | 2022-03-23 16:00 | NUR ---
RT AT BEDSIDE WITH BREATHING TREATMENT. PER RT AND THIS NURSE, RALES NOW PRESENT IN LUNG YUN. DR. MARTÍNEZ NOTIFIED WHO IS TO COME AND EVALUATE PATIENT. CONTINUE REST OF BOLUS AT THIS TIME. NO FURTHER URINE OUTPUT AT THIS TIME WITH GRAF. DEVON SITTING IN BEDSIDE CHAIR WATCHING TV. PERSONAL ITEMS AND CALL LIGHT WITHIN REACH. PATIENT STATES NO FURTHER NEEDS.
--- NOTE | 2022-03-23 17:35 | NUR ---
Patient moved to bed. Once in bed, patient stated she has severe pain in her left hip and left ankle. Patient also complaining of being cold. VS checked, prn pain medication given, warm blankets supplied. Patient denied any other needs at this time. TV channel changed for comfort and distraction. Personal items and call light within reach.
--- NOTE | 2022-03-23 18:09 | NUR ---
Patient has been able to get in and out of bed throughout the shift without difficulty and +1 assist. Patient will use cane when needed to move about in room. Patient has utilized PRN medications for BLE pain, hip pain, and ankle pain. Urine output continues to be low despite multiple boluses given, Dr. Cui aware.
--- NOTE | 2022-03-23 19:53 | NUR ---
PT SITTING UP ALERT AND ORIENTED IN RECLINER, SHE REPORTS PAIN IS BETTER SINCE PAIN MEDICATION EARLIER, STILL REPORTS 7/10, SHE IS LAUGHING AND JOKING WITH STAFF, NISHA WITH R.Zak IN ROOM TO PROVIDED BREATHING TREATMENT, PT REPORTS SHE WANTS TO SLEEP IN RECLINER, CPAP BROUGHT TO CHAIR SIDE TO ACCOMADATE, PT ACCU CHECK IS 135 AT THIS TIME, SHE REQUESTED CUP OF ICE THIS IS PROVIDED. NO OTHER REQUESTS AT THIS TIME. NO DISTRESS, NO NEW CONCERNS AT THIS TIME.
--- NOTE | 2022-03-23 20:16 | NUR ---
PATIENT SITTING UP IN CHAIR. LAB AT BEDSIDE FOR DRAW. TOOK PO MEDS. CALL LIGHT IN REACH AND CAN MAKE NEEDS KNOWN.
--- NOTE | 2022-03-23 20:33 | NUR ---
PATIENT REPORTS SLEEPING IN A CHAIR AT HOME. SCD'S TO BLE. CALL LIGHT IN REACH.
--- NOTE | 2022-03-23 23:22 | NUR ---
PATIENT REPORTS BACK ITCHING. BACK WASHED AND LOTION APPLIED. SITTING UP IN CHAIR. USES CPAP ON AND OFF DURING THE NIGHT WHILE SLEEPING. CALL LIGHT IN REACH.
--- NOTE | 2022-03-23 23:51 | NUR ---
PATIENT CALLED AND WANTED TO GET IN BED. CPAP ON AND PATIENT COMFORTABLE IN BED WITH ALL BELONGINGS AND CALL LIGHT IN REACH.
--- NOTE | 2022-03-24 01:05 | NUR ---
PATIENT RESTING IN BED. CPAP OFF. SCD'S ON. CALL LIGHT IN REACH. PROVIDED ICE CHIPS.
--- NOTE | 2022-03-24 03:36 | NUR ---
PATIENT SPILT WATER ON HER GOWN. GOWN CHANGED. PATIENT REPOSITIONED IN BED. PATIENT REMAINS ON ROOM AIR WITH SATS > 90%. CALL LIGHT IN REACH AND CAN MAKE NEEDS KNOWN.
--- NOTE | 2022-03-24 05:12 | NUR ---
PATIENT CALL AND WANTED TO GET OUT OF BED BACK IN THE CHAIR. PATIENT AMBULATED INDEPENDENTLY TO THE CHAIR WITH THE USE OF A CANE.
--- NOTE | 2022-03-24 05:45 | NUR ---
LAB AT BEDSIDE FOR AM DRAW.
--- NOTE | 2022-03-24 07:37 | NUR ---
PT IS A/O, RESPIRATIONS EVEN AND REGULAR. PT IS UP TO CHAIR. IV FLUIDS RUNNING. BG IS 143. CALL LIGHT WITHIN REACH.
--- NOTE | 2022-03-24 08:00 | NUR ---
Spoke with Rebeca. States she is feeling better today. Plans on dc to home with her spouse. Denies needs for any DME. Is in the process of moving to [facility].Daughter Vonnie will assist her if needed.
--- NOTE | 2022-03-24 08:20 | NUR ---
PT ASSESSMENT AND MEDICATION ADMINISTRATION COMPLETED. PT IS UP TO CHAIR EATING BREAKFAST. PT IS A/O, RESPIRATIONS EVEN AND REGULAR. IV FLUIDS RUNNING. IV REMOVED FROM RIGHT WRIST DUE TO LEAKAGE. GRAF CATHETER PATENT WITH GOOD OUTPUT. URINE IS DARK, NO SEDIMENT NOTED. CALL LIGHT WITHIN REACH.
[2022-03-24] MEDS ORDERED: FUROSEMIDE40 MG PO (09:32)
[2022-03-24] MEDS ORDERED: IPRAT-ALBUT 0.5-3 ML INH (09:33)
[2022-03-24] MEDS ORDERED: BENZONATATE100 MG PO (09:33)
[2022-03-24] MEDS ORDERED: VITAMIN D325 MCG PO (09:34)
[2022-03-24] MEDS ORDERED: VITAMIN E180 M2 PO (09:34)
[2022-03-24] MEDS ORDERED: VITAMIN C500 M1 PO (09:34)
[2022-03-24] MEDS ORDERED: [UNRECOGNIZED DRUG - OTHER] PO (09:35)
[2022-03-24] MEDS ORDERED: MECLIZINE HCL25 MG PO (09:35)
[2022-03-24] MEDS ORDERED: HUMULIN N100 UNIT/1 SUB-Q (09:36)
[2022-03-24] MEDS ORDERED: HUMULIN R100 UNIT/1 INJ (09:37)
--- NOTE | 2022-03-24 09:38 | NUR ---
MED REC COMPLETE
--- NOTE | 2022-03-24 09:40 | NUR ---
TO PT ROOM FOR MEDICATION ADMINISTRATION. PT IS ON ROOM AIR, SPO2 96%. GRAF CATHETER DRAINING WELL. CALL LIGHT WITHIN REACH.
--- NOTE | 2022-03-24 11:20 | NUR ---
PT ASSESSMENT, VS, AND BG COMPLETED. PT IS A/O, ON RA SPO2 94%. PT C/O PAIN 01/28. PAIN MEDICATION ADMINISTERED. IV FLUIDS RUNNING. CALL LIGHT WITHIN REACH.
--- NOTE | 2022-03-24 12:28 | NUR ---
IV FLUIDS DECREASED TO 85ML/HR PER ORDER. VS TAKEN. PT AMBULATED STANDY BY ASSIST WITH CANE FROM CHAIR TO BED. GRAF CATHETER REMOVED. PT TOLERATED WELL. PERICARE PROVIDED. CPAP PLACED ON PT SHE NAPS. CALL LIGHT WITHIN REACH.
--- NOTE | 2022-03-24 13:45 | NUR ---
ROUNDED ON PT. PT IS SLEEPY BUT RATES PAIN 2/10. CPAP IN PLACE WHILE PT SLEEPING. CALL LIGHT WITHIN REACH. IV FLUIDS RUNNING.
--- NOTE | 2022-03-24 14:17 | NUR ---
PT ALERT, ORIENTED AND SITTING IN CHAIR WITH O2 NC IN USE.PT SAID SHE FEELS BETTER TODAY, BUT DIDN'T GET MUCH SLEEP. HOWEVER JUST HAD A NICE NAP. GAVE ENCOURAGEMENT AND BLESSING. WILL FOLLOW
--- NOTE | 2022-03-24 14:44 | NUR ---
PT SHOWER COMPLETED. PT NEEDED MINIMAL ASSISTANCE. AMBULATED WELL FROM CHAIR TO SHOWER. COMPLETE BEDDING CHANGED. SCD'S IN PLACE, UNABLE TO TOLERATE JOSE J HOSE. PT IS ON RA, RESPIRATIONS EVEN AND REGULAR. PRIOR TO SHOWER PT ATTEMPTED TO VOID. APPROX 20ML VOID. DARK YELLOW. PT UP TO CHAIR. CALL LIGHT WITHIN REACH. IV FLUIDS RUNNING.
--- NOTE | 2022-03-24 16:30 | NUR ---
PT ASSESSMENT COMPLETED. PT UP TO RESTROOM TO VOID. AMBULATED WELL WITH STANDBY ASSIST AND CANE. MEDICATION ADMINISTRATION COMPLETED. PT IS A/O, SPO2 97% ON RA. VISITOR AT BEDSIDE. IV FLUSHES WELL, SITE WNL. IV FLUIDS RUNNING. CALL LIGHT WITHIN REACH.
--- NOTE | 2022-03-24 17:24 | NUR ---
ROUNDED ON PT. PT IS A/O, RESPIRATIONS EVEN AND REGULAR. REQUESTING PAIN MEDICATION FOR PAIN RATING 8/10. PT AMBULATED WELL WITH STANDBY ASSIST AND CANE FROM CHAIR TO BED. IV FLUIDS RUNNING. CALL LIGHT WITHIN REACH.
--- NOTE | 2022-03-24 18:15 | NUR ---
ROUNDED ON PT. PT UP TO RESTROOM, VOIDED 200ML. PT CONTINUES TO AMBULATE WELL WITH STANDBY ASSIST AND CANE. PT SITTING IN CHAIR ATT. A/O, RESPIRATIONS EVEN AND REGULAR. IV FLUIDS RUNNING. CALL LIGHT WITHIN REACH.
--- NOTE | 2022-03-24 21:04 | NUR ---
PATIENT FROM CHAIR TO RESTROOM WITH A CANE AND SBA. PATIENT VOIDED AND AMBULATED TO BED. ALL BELONGINGS AND CALL LIGHT IN REACH. VS STABLE. EDUCATED PATIENT ON PLAN OF CARE.
--- NOTE | 2022-03-24 22:41 | NUR ---
PATIENT TO THE BEDSIDE CHAIR INDEPENDENTLY. ICE CHIPS PROVIDED. LOTION ON LEGS. CALL LIGHT IN REACH.
--- NOTE | 2022-03-25 02:24 | NUR ---
PATIENT AMBULATED TO RESTROOM. BACK TO BED WITH CPAP ON. CALL LIGHT IN REACH. CRACKERS AND ICE PROVIDED.
--- NOTE | 2022-03-25 03:51 | NUR ---
PATIENT UP TO CHAIR. REPORTS BEING UP AND DOWN ALL NIGHT IS NORMAL KIMMIE HER. CALL LIGHT IN REACH.
--- NOTE | 2022-03-25 08:20 | NUR ---
PT ASSESSMENT AND MEDICATION ADMINISTRATION COMPLETED. PT IS A/O, RESPIRATIONS EVEN AND REGULAR, SITTING UP IN CHAIR. BG 106, SLIDING SCALE INSULIN HELD. PT IS EATING BREAKFAST ATT. CALL LIGHT WITHIN REACH.
[2022-03-25] MEDS ORDERED: CEPHALEXIN500 MG PO (09:10)
[2022-03-25] MEDS ORDERED: FLUCONAZOLE150 MG PO (09:19)
--- NOTE | 2022-03-25 09:25 | NUR ---
TO PT ROOM FOR MEDICATION ADMINISTRATION. PT IS ANTICIPATING DISCHARGE TODAY. CALL LIGHT WITHIN REACH.
--- NOTE | 2022-03-25 11:32 | NUR ---
PT DISCHARGED. VERBAL AND WRITTEN EDUCATION PROVIDED. IV REMOVED, CATHETER INTACT.
--- NOTE | 2022-03-25 12:57 | NUR ---
CONNECTED WITH PT SHE WAS BEING WHEELED OUT AT DC BY YEISON TOSCANO. GAVE PT ENCOURAGEMENT AND BLESSING, SHE ACKNOWLEDGED
== END 2022-03-25 11:20 | disposition home or self-care (01) | DRG 871 ==
LOC: CCU 18:15 → MS 03-23 02:30 → CCU 03-23 02:30 → MS 03-23 04:53 → CCU 03-23 10:30
PROVIDERS: ADMIT Internal Medicine; ATTEND Internal Medicine
DX: A40.1 Sepsis due to streptococcus, group B (principal); G93.41 Metabolic encephalopathy; L03.311 Cellulitis of abdominal wall; E87.1 Hypo-osmolality and hyponatremia; I50.32 Chronic diastolic (congestive) heart failure; F11.20 Opioid dependence, uncomplicated; I13.0 Hypertensive heart and chronic kidney disease with heart failure and stage 1 through stage 4 chronic kidney disease, or unspecified chronic kidney disease; N18.4 Chronic kidney disease, stage 4 (severe); R65.20 Severe sepsis without septic shock; L30.4 Erythema intertrigo; R59.1 Generalized enlarged lymph nodes; K74.60 Unspecified cirrhosis of liver; J44.9 Chronic obstructive pulmonary disease, unspecified; D63.1 Anemia in chronic kidney disease; E11.22 Type 2 diabetes mellitus with diabetic chronic kidney disease; K76.0 Fatty (change of) liver, not elsewhere classified; E79.0 Hyperuricemia 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 of inflammatory arthritis and tophaceous disease; G25.81 Restless legs syndrome; F51.04 Psychophysiologic insomnia; G89.4 Chronic pain syndrome; E78.00 Pure hypercholesterolemia, unspecified; E03.9 Hypothyroidism, unspecified; Z88.5 Allergy status to narcotic agent; Z88.8 Allergy status to other drugs, medicaments and biological substances; Z79.4 Long term (current) use of insulin; Z79.02 Long term (current) use of antithrombotics/antiplatelets; Z79.899 Other long term (current) drug therapy; Z79.51 Long term (current) use of inhaled steroids; Z79.52 Long term (current) use of systemic steroids
CPT/HCPCS: 36415; 80048; 83036; 85025; 87040; 94640; 94660; A9270; J0690; J1650; J1815; J2405; J7121